=== PATIENT | female | born 1955 | race Caucasian/White ===

== ENCOUNTER 2016-03-26 16:38 | Emergency (ER) | payer OTHER ==
[~2016-03-26] VITALS: Ht 170.2 cm; Wt 80.0 kg
[~2016-03-26 16:38] MED LIST: ACET-749 PO; ALLO100T PO; ASCA500 PO; BISO5TAB3 PO; CITA10TA4 PO; CLR10 PO; COLE625T PO; DIGO0.2518 PO; DILT180C PO; DOCU-94 PO; DOCUSATE 100 MG PO; FLM4 PO; GLIM1TAB2 PO; NITR1CAP33 PO; OXYC-57 PO; OXYC1TAB3 PO; PANC24002 PO; PANT1TAB48 PO; POTA-74 PO; POTA1080 PO; TRAM-10 PO; TRAZ50TA35 PO; TRC145 PO; WARF-246 PO
[2016-03-26 16:51] VITALS: TEMP 36.7; Ht 170.2 cm; Wt 80.0 kg
[2016-03-26] MEDS ORDERED: HYDROmorphone INJ 1 MG/ML SYR IV STA (17:02)
[2016-03-26] MEDS ORDERED: SODIUM CHLORIDE 0.9% 500ML 500 ML IV STA (17:02)
[2016-03-26] MEDS ORDERED: SUCR1TAB29 PO (17:04)
[2016-03-26] MEDS ORDERED: AMOX1TAB42 PO (17:04)
[2016-03-26] MEDS ORDERED: NVLG SC (17:15)
[2016-03-26] MEDS ORDERED: ONDA4TAB46 PO (17:15)
[2016-03-26] MEDS ORDERED: CHOL2000 PO (17:15)
[2016-03-26] MEDS ORDERED: WARF2.5T8 PO (17:15)
[2016-03-26] MEDS ORDERED: COLE1TAB5 PO (17:15)
[2016-03-26] MEDS ORDERED: WARF3TAB6 PO (17:15)
[2016-03-26] MEDS ORDERED: MAGN400T6 PO (17:15)
[2016-03-26] MEDS ORDERED: INSDGIPEN SC (17:15)
[2016-03-26] MEDS ORDERED: DILT120C41 PO (17:16)
[2016-03-26 17:25] LABS: BASO % 0.5 %; BASO ABS # 0.03 K/uL (0-0.2); COMPLETE YES; HEMATOCRIT 40.5 % (37-47); IG% 0.2 %; LYMPH % 29.4 %; LYMPH ABS # 1.78 K/uL (1.2-3.4); MEAN CORPUSCULAR HEMOGLOBIN 30.8 pg (25-34); MEAN CORPUSCULAR HGB CONC 34.6 g/dl (32-36); MEAN PLATELET VOLUME 10.5 fL (7.4-10.4); MONO % 12.9 %; PLATELET COUNT 212 K/uL (130-400); RED BLOOD COUNT 4.55 M/uL (4.2-5.4); WHITE BLOOD COUNT 6.06 K/uL (4.8-10.8)
[2016-03-26 17:41] LABS: BUN/CREATININE RATIO 16.8 (10-20); CALCIUM 9.4 mg/dl (8.5-10.1); CREATININE 0.63 mg/dl (0.60-1.20); POTASSIUM 3.6 mmol/L (3.5-5.1)
[2016-03-26 17:44] LABS: ALB/GLOB RATIO 0.9 (0.9-2)
[2016-03-26 17:51] LABS: BETA-HYDROXYBUTYRATE 1.15 mg/dL (0.2-2.81)
[2016-03-26 18:27] LABS: URINE APPEARANCE CLOUDY (CLEAR); URINE BILIRUBIN NEG (NEG); URINE COLOR YELLOW; URINE EPITHELIAL CELL AUTO >30 /lpf (0-5); URINE NITRITE NEG (NEG); URINE PH 6.5 (4.5-7.5); UROBILINOGEN NEG (NEG); ZZUR CULT IF INDIC CLEAN CATCH NO
[2016-03-26 18:28] LABS: MANUAL MICROSCOPIC REQUIRED? NO; REVIEW REQ? NO
[2016-03-26] MEDS ORDERED: NovoLIN-R INSULIN PER UNIT CHARGE SC STA (18:29)
[2016-03-26] MEDS ORDERED: HYDR-5688 PO (18:48)
--- NOTE | 2016-03-26 18:52 | EMERGENCY ROOM VISIT NOTE ---
History First contact with patient: 16:54 Chief Complaint: ABDOMINAL PAIN Stated Complaint: ABD PAIN Nursing Triage Summary: Patient reports left sided abdominal pain with associated constipation, nausea and vomiting. history of pancreatic CA. Patient evaluated at [facility] yesterday for same c/c. Placed on augmentin and carafate. No relief. Patietn denies any fever/chills. History of Present Illness The patient is a 60 year old female who presents to the Emergency Room with complaints of abdominal pain. The patient reports that she has had left-sided abdominal pain with radiation into the back and into the right side of the abdomen for the past 3 weeks. She was seen at [facility] yesterday and had a CT scan which showed diverticulitis. The patient was placed on Augmentin and discharged home. She reports that she is having trouble controlling the pain. She is not taking anything at home for her pain. She does have a history of diverticulitis. The patient also has a history of pancreatic cancer and is status post Whipple procedure in 2013. The patient states that she has been alternating between constipation and diarrhea. She has occasional nausea without vomiting. She has been able to keep down soup and sohail oscar. The patient also reports a history of atrial fibrillation and type 2 diabetes mellitus. She denies any fevers/chills, hematochezia, chest pain or shortness of breath. Review of Systems A complete 10-point Review of Systems was discussed with the patient, with pertinent positives and negatives listed in the History of Present Illness. All remaining Review of Systems questions can be considered negative unless otherwise specified. Past Medical/Surgical History Medical Problems: (1) A-fib (2) Diverticulitis (3) Heart disease (4) HTN (hypertension) (5) Kidney stones (6) Pancreatic cancer Surgical Problems: (1) Hx of appendectomy (2) Hx of cholecystectomy Family History FH: cancer FH: heart disease Hypertension Kidney disease Kidney stones Seizures Social History Smoking Status: Current Every Day Smoker Alcohol Use: none Drug Use: none Marital Status: Housing Status: lives with family Occupation Status: unemployed Current/Historical Medications Scheduled Allopurinol (Zyloprim), 200 MG PO DAILY Amoxicillin & Pot Clavulanate (Amoxicillin/Clavulanate P), 1 TAB PO BID Ascorbic Acid (Vitamin C *), 500 MG PO BID Bisoprolol Fumarate (Zebeta), 2.5 MG PO HS Cholecalciferol (Vitamin D3), 2,000 UNITS PO BID Citalopram Hydrobromide (Citalopram Hydrobromide), 10 MG PO HS Colestipol Hcl (Colestipol Hcl), 1 GM PO QID Digoxin (Lanoxin), 0.25 MG PO DAILY Diltiazem Hcl (Dilt-Xr), 120 MG PO DAILY Fenofibrate (Fenofibrate), 145 MG PO DAILY Glimepiride (Glimepiride), 2 MG PO HS Insulin Aspart (Novolog), 4 UNITS SC WM Insulin Glargine (Lantus Solostar), 36 UNITS SC HS Loratadine (Claritin), 10 MG PO DAILY Magnesium Oxide (Mag-Ox), 400 MG PO DAILY Pancrelipase (Lipase-Protease- (Creon), 2 CAP PO TIDM Pantoprazole (Protonix), 40 MG PO DAILY Potassium Chloride (Potassium Chloride Er), 10 MEQ PO DAILY Sucralfate (Carafate), 1 GM PO QID Tamsulosin HCl (Tamsulosin HCl), 0.4 MG PO HS Trazodone Hcl (Trazodone), 100 MG PO HS Warfarin Sod (Jantoven), 2.5 MG PO UD Warfarin Sod (Jantoven), 3 MG PO UD Scheduled PRN Docusate Sodium (Colace), 1 CAP PO BID PRN for Constipation Hydrocodone/Acetaminophen 5MG/325MG ([place] 5MG/325MG), 1-2 TABLET PO Q4H PRN for Pain Ondansetron Hcl (Zofran), 4 MG PO Q8 PRN for Nausea Allergies Coded Allergies: Azithromycin (Verified Allergy, Severe, RASH, 06/09/15) Iodinated Diagnostic Agents (Verified Allergy, Severe, HIVES, AIRWAY SWELLS FROM CT DYE, 06/10/15) Iodine (Verified Allergy, Mild, 04/24/09) Morphine (Verified Allergy, Mild, 06/03/11) Alcohol (Verified Allergy, Unknown, hives, 10/24/15) no alcohol wipes Atorvastatin (Verified Allergy, Unknown, UNKNOWN, 06/09/15) Fentanyl (Verified Allergy, Unknown, rash, 10/24/15) Isopropyl Alcohol (Verified Allergy, Unknown, UNKNOWN, 06/10/15) Latex (Verified Allergy, Unknown, UNKNOWN, 06/10/15) Lemon Oil (Verified Allergy, Unknown, UNKNOWN, 06/09/15) Lorazepam (Verified Allergy, Unknown, RASH, 06/09/15) Lovastatin (Verified Allergy, Unknown, MYALGIAS, 06/09/15) Ondansetron (Verified Allergy, Unknown, rash, 10/24/15) Rosuvastatin (Verified Allergy, Unknown, UNKNOWN, 06/09/15) Shellfish (Verified Allergy, Unknown, UNKNOWN, 06/09/15) Sulfamethoxazole w/Trimethoprim (Verified Allergy, Unknown, UNKNOWN, ) Oxycodone (Verified Adverse Reaction, Severe, SHEARER/NAUSEA, 06/10/15) Ciprofloxacin (Verified Adverse Reaction, Unknown, INTERFERES WITH COUMADIN, 06/10/15) Ezetimibe (Verified Adverse Reaction, Unknown, RAPID HEART BEAT, 06/10/15) Gemfibrozil (Verified Adverse Reaction, Unknown, MYALGIAS, 06/10/15) Tramadol (Verified Adverse Reaction, Unknown, CHEST TIGHTNESS, 06/10/15) Physical Exam Vital Signs Date Time Temp Pulse Resp B/P Pulse Ox O2 Delivery O2 Flow Rate FiO2 03/26/16 19:03 64 16 108/70 98 03/26/16 18:14 94 16 101/67 96 03/26/16 16:58 108 03/26/16 16:51 36.7 94 16 167/80 95 03/26/16 16:51 Room Air Pain Rating (0-10): 0 Physical Exam VITALS: Vitals are noted on the nurse's note and reviewed by myself. Vital signs stable. GENERAL: This is a 60-year-old female, in no acute distress, nondiaphoretic, well-developed well-nourished. SKIN: Capillary reflex less than 2 seconds. HEART: Regular rate and rhythm without murmurs gallops or rubs. LUNGS: Clear to auscultation bilaterally without wheezes, rales or rhonchi. No retractions or accessory muscle use. ABDOMEN: Positive bowel sounds x 4. Moderate tenderness to palpation of the left lower quadrant and right lower quadrant. NEURO: Patient was alert and oriented to person place and time. Medical Decision & Procedures Laboratory Results 03/26/16 17:15 Red Blood Count 4.55, Mean Corpuscular Volume 89.0, Mean Corpuscular Hemoglobin 30.8, Mean Corpuscular Hemoglobin Concent 34.6, Mean Platelet Volume 10.5, Neutrophils (%) (Auto) 56.0, Lymphocytes (%) (Auto) 29.4, Monocytes (%) (Auto) 12.9, Eosinophils (%) (Auto) 1.0, Basophils (%) (Auto) 0.5, Neutrophils # (Auto ) 3.40, Lymphocytes # (Auto) 1.78, Monocytes # (Auto) 0.78, Eosinophils # (Auto ) 0.06, Basophils # (Auto) 0.03 03/26/16 17:15 Test 03/26/16 00:00 03/26/16 17:15 Urine Color YELLOW Urine Appearance CLOUDY (CLEAR) Urine pH 6.5 (4.5-7.5) Urine Specific [place] 1.030 (1.000-1.030) Urine Protein NEG (NEG) Urine Glucose (UA) 3+ (NEG) Urine Ketones NEG (NEG) Urine Occult Blood NEG (NEG) Urine Nitrite NEG (NEG) Urine Bilirubin NEG (NEG) Urine Urobilinogen NEG (NEG) Urine Leukocyte Esterase NEG (NEG) Urine WBC (Auto) 1-5 /hpf (0-5) Urine RBC (Auto) 0-4 /hpf (0-4) Urine Hyaline Casts (Auto) 1-5 /lpf (0-5) Urine Epithelial Cells (Auto) >30 /lpf (0-5) Urine Bacteria (Auto) NEG (NEG) White Blood Count 6.06 K/uL (4.8-10.8) Red Blood Count 4.55 M/uL (4.2-5.4) Hemoglobin 14.0 g/dL (12.0-16.0) Hematocrit 40.5 % (37-47) Mean Corpuscular Volume 89.0 fL (80-100) Mean Corpuscular Hemoglobin 30.8 pg (25-34) Mean Corpuscular Hemoglobin Concent 34.6 g/dl (32-36) Platelet Count 212 K/uL (130-400) Mean Platelet Volume 10.5 fL (7.4-10.4) Neutrophils (%) (Auto) 56.0 % Lymphocytes (%) (Auto) 29.4 % Monocytes (%) (Auto) 12.9 % Eosinophils (%) (Auto) 1.0 % Basophils (%) (Auto) 0.5 % Neutrophils # (Auto) 3.40 K/uL (1.4-6.5) Lymphocytes # (Auto) 1.78 K/uL (1.2-3.4) Monocytes # (Auto) 0.78 K/uL (0.11-0.59) Eosinophils # (Auto) 0.06 K/uL (0-0.5) Basophils # (Auto) 0.03 K/uL (0-0.2) RDW Standard Deviation 41.7 fL (36.4-46.3) RDW Coefficient of Variation 12.9 % (11.5-14.5) Immature Granulocyte % (Auto) 0.2 % Immature Granulocyte # (Auto) 0.01 K/uL (0.00-0.02) Anion Gap 10.0 mmol/L (3-11) Est Creatinine Clear Calc Drug Dose 102.1 ml/min Estimated GFR () 112.2 Estimated GFR (Non- 96.8 BUN/Creatinine Ratio 16.8 (10-20) Calcium Level 9.4 mg/dl (8.5-10.1) Total Bilirubin 0.2 mg/dl (0.2-1) Aspartate Amino Transf (AST/SGOT) 32 U/L (15-37) Alanine Aminotransferase (ALT/SGPT) 51 U/L (12-78) Alkaline Phosphatase 86 U/L (45-117) Total Protein 6.6 gm/dl (6.4-8.2) Albumin 3.2 gm/dl (3.4-5.0) Globulin 3.4 gm/dl (2.5-4.0) Albumin/Globulin Ratio 0.9 (0.9-2) Lipase 196 U/L (73-393) Beta-Hydroxybutyric Acid 1.15 mg/dL (0.2-2.81) Medications Administered Medications (Trade) Dose Ordered Sig/August Route Start Time Stop Time Status Last Admin Dose Admin Hydromorphone HCl 1 mg 1 mg NOW STAT IV 03/26/16 17:02 03/26/16 17:06 DC 03/26/16 17:25 1 MG Sodium Chloride (Nss 500ml) 500 ml @ 999 mls/hr Q31M STAT IV 03/26/16 17:02 03/26/16 17:34 DC 03/26/16 17:24 999 MLS/HR Insulin Human Regular (novoLIN-R U-100 PER UNIT) 10 units NOW STAT SC 03/26/16 18:29 03/26/16 18:30 DC 03/26/16 18:59 10 UNITS Medical Decision Differential diagnosis includes diverticulitis, pancreatitis, gastroenteritis, colitis, among others. The patient was evaluated as above. Labs were drawn and IV access was obtained. The patient was medicated with 1 mg Dilaudid IV and a 500 mL normal saline solution bolus. The patient was reassessed multiple times during their stay in the emergency department and remained in stable condition. The patient is a 60-year-old female who presents today complaining of abdominal pain. Records were obtained from [facility]. The patient was not seen in the emergency department, but did have outpatient testing done. Labs at that time were unremarkable. A CT scan was done and did not show evidence of diverticulitis, but was suspicious for a possible pancreatitis. Review of the patient's records here show that she was seen last month and had a CT scan which showed similar findings. I do question whether there could be a component of chronic pancreatitis. Regardless, the patient was encouraged to continue the Augmentin prescribed by her primary care provider despite the CT findings. Labs today revealed no leukocytosis, anemia or concerning electrolyte abnormalities. Glucose was moderately elevated at 366. The patient was given 10 mg regular insulin subcutaneously. Urinalysis was not suggestive of infection. The patient was given 1 mg Dilaudid IV and on reassessment had complete relief of her pain. She requested discharge home. She has a follow-up appointment scheduled with her primary care provider in 2 days. She was encouraged to return if she has any new/concerning symptoms. Based on the patient's presentation, lab results, and imaging studies, I feel the patient is stable for outpatient treatment. The patient's case was reviewed with Dr. Walters, ED attending physician, who agreed with my assessment and treatment plan. Discharge instructions were reviewed with the patient. The patient verbalized understanding of my assessment and treatment plan and was discharged home in good condition. Impression Primary Impression: Left sided abdominal pain Departure Information Dispostion Home / Self-Care Condition GOOD Prescriptions Hydrocodone/Acetaminophen 5MG/325MG ([place] 5MG/325MG) Tab 1-2 TABLET PO Q4H Y for Pain, #20 TAB For Initial Treatment Prov: Jennifer Stokes .IDALMIS 03/26/16 Referrals Michael Sepulveda M.D. (PCP) Patient Instructions A Signature Page Additional Instructions You have been treated in the Emergency Department your Abdominal Pain. Laboratory results and imaging studies have ruled out any emergent causes for your abdominal pain which would warrant admission or surgery. You have been prescribed [place] to be used for pain control. This is a narcotic medication. You cannot drive or consume alcohol while on this medicine. This medicine should only be used for pain that cannot be controlled with over-the- counter pain medicines. Drink plenty of water and stay well hydrated. Follow-up with your primary care provider as scheduled. Monitor your blood sugars closely. Return to the emergency department with worsening abdominal pain, vomiting, fevers or any other new/concerning symptoms.
[2016-03-26 19:03] VITALS: BP 108/70; PULSE 64; O2SAT 98
[2016-11-23] MEDS ORDERED: FNTTP25 TD (09:14)
[2016-11-23] MEDS ORDERED: COLE1TAB PO (09:14)
[2016-11-23] MEDS ORDERED: WARF3TAB PO (09:14)
[2016-11-23] MEDS ORDERED: METO50TA7 PO (09:14)
[2016-11-23] MEDS ORDERED: CHOL20007 PO (09:14)
[2016-11-23] MEDS ORDERED: COLE625T PO (09:14)
[2016-11-23] MEDS ORDERED: OMEG10007 PO (09:14)
[2016-11-23] MEDS ORDERED: NVLGI/PEN SQ (09:14)
[2016-11-23] MEDS ORDERED: PANC1200 PO (09:14)
[2016-11-23] MEDS ORDERED: WARF1TAB PO (09:14)
[2016-11-23] MEDS ORDERED: DIGO0.1219 PO (09:14)
[2016-11-23] MEDS ORDERED: OXYC1CAP5 PO (09:14)
[2016-11-23] MEDS ORDERED: POLY335019 PO (09:14)
[2016-11-23] MEDS ORDERED: HYDR-5688 PO (09:14)
[2016-11-23] MEDS ORDERED: CYAN10005 PO (09:14)
[2016-11-23] MEDS ORDERED: NRN/100 PO (09:14)
[2016-11-23] MEDS ORDERED: NALO1TAB PO (09:14)
[2016-11-23] MEDS ORDERED: NICO7DIS7 TD (09:14)
[2016-11-23] MEDS ORDERED: DILT120C68 PO (09:14)
[2016-12-21] MEDS ORDERED: ASCA500 PO (15:12)
== END 2016-03-26 19:20 | disposition home or self-care (01) ==
LOC: EDBD 16:38 → C.EDC 16:44
DX: R10.9 Unspecified abdominal pain (principal); R19.7 Diarrhea, unspecified; I48.91 Unspecified atrial fibrillation; E11.9 Type 2 diabetes mellitus without complications; I10 Essential (primary) hypertension; F17.200 Nicotine dependence, unspecified, uncomplicated; Z85.07 Personal history of malignant neoplasm of pancreas; Z82.49 Family history of ischemic heart disease and other diseases of the circulatory system; Z79.01 Long term (current) use of anticoagulants; Z79.4 Long term (current) use of insulin; Z79.899 Other long term (current) drug therapy

== ENCOUNTER → 2016-04-12 | Outpatient (CLI) | payer OTHER ==
[~2016-04-12] MED LIST changes: -ACET-749 PO; +AMOX1TAB42 PO; +CHOL2000 PO; +CHOL20007 PO; +CMD2 PO; +COLE1TAB PO; +COLE1TAB5 PO; +CYAN10005 PO; +DIGO0.1219 PO; +DILT120C41 PO; +DILT120C68 PO; -DILT180C PO; -DOCUSATE 100 MG PO; +FNTTP25 TD; +HYDR-5688 PO; +INSDGIPEN SC; +MAGN400T6 PO; +METO50TA7 PO; +NALO1TAB PO; +NICO7DIS7 TD; -NITR1CAP33 PO; +NRN/100 PO; +NVLG SC; +NVLGI/PEN SQ; +OMEG10007 PO; +ONDA4TAB46 PO; -OXYC-57 PO; +OXYC1CAP5 PO; -OXYC1TAB3 PO; +PANC1200 PO; +POLY335019 PO; -POTA1080 PO; +SUCR1TAB29 PO; -TRAM-10 PO; -WARF-246 PO; +WARF1TAB PO; +WARF2.5T8 PO; +WARF3TAB PO; +WARF3TAB6 PO
--- NOTE | 2016-04-12 10:11 | DIAGNOSTIC IMAGING REPORT ---
KUB CLINICAL HISTORY: Ureteral calculus COMPARISON STUDY: 08/09/2015 FINDINGS: There are postsurgical changes present within the abdomen with multiple suture lines. There is bilateral nephrolithiasis. There are mildly dilated small bowel loops measuring up to 36 mm in diameter. There is a 2 mm density projected over the right L3 transverse process. A tiny ureteral calculus cannot be excluded IMPRESSION: 1. Extensive postsurgical changes 2. Mild small bowel dilatation 3. 2 mm density projected over the right L3 transverse process. A tiny ureteral calculus cannot be excluded Electronically signed by: Luis Davis M.D. 04/12/2016 10:09 AM Dictated Date/Time: 04/12/2016 10:07 AM
[2016-04-12 10:32] LABS: BLOOD UREA NITROGEN 9 mg/dl (7-18); BUN/CREATININE RATIO 16.2 (10-20); CALCIUM 10.4 mg/dl (8.5-10.1); CARBON DIOXIDE 30 mmol/L (21-32); CHLORIDE 105 mmol/L (98-107); CREATININE 0.53 mg/dl (0.60-1.20); GLUCOSE 106 mg/dl (70-99); POTASSIUM 3.6 mmol/L (3.5-5.1); SODIUM 143 mmol/L (136-145); URIC ACID 2.5 mg/dl (2.6-7.2)
== END | disposition home or self-care (01) ==
LOC: C.RAD 09:22
PROVIDERS: ATTEND Urology
DX: N20.1 Calculus of ureter (principal); N39.0 Urinary tract infection, site not specified; N20.0 Calculus of kidney

== ENCOUNTER → 2016-04-12 | Outpatient (CLI) | payer OTHER | END | disposition home or self-care (01) | LOC: C.LABSPEC 16:53 | PROVIDERS: ATTEND Nurse Practitioner Family | DX: N20.1 Calculus of ureter (principal); N39.0 Urinary tract infection, site not specified ==

== ENCOUNTER 2016-04-15 16:10 | Emergency (ER) | payer OTHER ==
[~2016-04-15] VITALS: Ht 167.6 cm; Wt 73.8 kg
[~2016-04-15 16:10] MED LIST changes: -CHOL20007 PO; -CMD2 PO; -COLE1TAB PO; -COLE625T PO; -CYAN10005 PO; -DIGO0.1219 PO; -DILT120C68 PO; -FNTTP25 TD; -METO50TA7 PO; -NALO1TAB PO; -NICO7DIS7 TD; -NRN/100 PO; -NVLGI/PEN SQ; -OMEG10007 PO; -OXYC1CAP5 PO; -PANC1200 PO; -POLY335019 PO; -WARF1TAB PO; -WARF3TAB PO
[2016-04-15 16:20] VITALS: TEMP 36.7; Ht 167.6 cm; Wt 73.8 kg
[2016-04-15] MEDS ORDERED: CMD2 PO (16:46)
[2016-04-15] MEDS ORDERED: NVLGI/PEN SQ (16:46)
--- NOTE | 2016-04-15 17:26 | EMERGENCY ROOM VISIT NOTE ---
History Report prepared by Chuyita: Rufina Loera Under the Supervision of: Dr. Moises Nolasco M.D. First contact with patient: 17:10 Chief Complaint: ABDOMINAL PAIN Stated Complaint: AB PAIN Nursing Triage Summary: Diffuse upper abdominal pain. History of diverticulitis, and pancreatitis. Scheduled for pancreatic surgery next week at [facility]. Negative nausea/vomiting/diarrhea, fever, chills. Patient took lortab 5 mg X 2 this date with little relief. Given Fentanyl 100 mcg Prehospital with some relief. History of Present Illness The patient is a 60 year old female who presents to the Emergency Room with complaints of worsening left-sided abdominal pain that started earlier today. The patient came to the ED via ambulance and was given 100 mcg fentanyl en route. The fentanyl relieved her pain. The patient took two doses of 5 mg of Lortab earlier today, but it offered her minimal relief. She is also experiencing shortness of breath secondary to the pain. She denies any other complaints other than the pain and associated shortness of breath. The patient states that she has a history of diverticulitis, pancreatitis, and four kidney stones. The patient thinks that she only has one kidney stone left. She states that the pain feels very similar to the pain that she experiences with pancreatitis. The patient is scheduled to have pancreatic surgery at [facility] next week, which she states is for "inflammation of tail of the pancreas." She adds that she has been on a light diet since March 07 in an effort to avoid irritating her pancreas. The patient has a history of atrial fibrillation and is on Coumadin. 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 Source of History: patient Onset: earlier today Position: abdomen (left-sided) Timing: worsening Associated Symptoms: + SOB (with the pain) Review of Systems All systems have been listed, reviewed, and are negative other than those previously mentioned. Please see Additional Medical History Sheet. Past Medical & Surgical Medical Problems: (1) A-fib (2) Diverticulitis (3) Heart disease (4) HTN (hypertension) (5) Kidney stones (6) Pancreatic cancer Surgical Problems: (1) Hx of appendectomy (2) Hx of cholecystectomy Family History FH: cancer FH: heart disease Hypertension Kidney disease Kidney stones Seizures Social History Smoking Status: Current Every Day Smoker Alcohol Use: none Drug Use: none Marital Status: Housing Status: lives with family Occupation Status: unemployed Current/Historical Medications Scheduled Allopurinol (Zyloprim), 100 MG PO DAILY Ascorbic Acid (Vitamin C *), 500 MG PO DAILY Bisoprolol Fumarate (Zebeta), 2.5 MG PO HS Citalopram Hydrobromide (Citalopram Hydrobromide), 10 MG PO HS Digoxin (Lanoxin), 0.25 MG PO DAILY Fenofibrate (Fenofibrate), 145 MG PO DAILY Glimepiride (Glimepiride), 2 MG PO HS Insulin Aspart (Novolog Flexpen), 2-4 UNIT SQ TIDM Insulin Glargine (Lantus Solostar), 36 UNITS SC HS Loratadine (Claritin), 10 MG PO DAILY Magnesium Oxide (Mag-Ox), 400 MG PO DAILY Pancrelipase (Lipase-Protease- (Creon), 2 CAP PO BID Pantoprazole (Protonix), 40 MG PO DAILY Potassium Chloride (Potassium Chloride Er), 10 MEQ PO DAILY Sucralfate (Carafate), 1 GM PO QID Tamsulosin HCl (Tamsulosin HCl), 0.4 MG PO HS Trazodone Hcl (Trazodone), 100 MG PO HS Warfarin Sod (Jantoven), 2.5 MG PO UD Warfarin Sod (Coumadin), 2 MG PO Q2D Scheduled PRN Docusate Sodium (Colace), 1 CAP PO BID PRN for Constipation Ondansetron Hcl (Zofran), 4 MG PO Q8 PRN for Nausea Allergies Coded Allergies: Azithromycin (Verified Allergy, Severe, RASH, 06/09/15) Iodinated Diagnostic Agents (Verified Allergy, Severe, HIVES, AIRWAY SWELLS FROM CT DYE, 06/10/15) Iodine (Verified Allergy, Mild, 04/24/09) Morphine (Verified Allergy, Mild, 06/03/11) Alcohol (Verified Allergy, Unknown, hives, 10/24/15) no alcohol wipes Atorvastatin (Verified Allergy, Unknown, UNKNOWN, 06/09/15) Fentanyl (Verified Allergy, Unknown, rash, 10/24/15) Isopropyl Alcohol (Verified Allergy, Unknown, UNKNOWN, 06/10/15) Latex (Verified Allergy, Unknown, UNKNOWN, 06/10/15) Lemon Oil (Verified Allergy, Unknown, UNKNOWN, 06/09/15) Lorazepam (Verified Allergy, Unknown, RASH, 06/09/15) Lovastatin (Verified Allergy, Unknown, MYALGIAS, 06/09/15) Ondansetron (Verified Allergy, Unknown, rash, 10/24/15) Rosuvastatin (Verified Allergy, Unknown, UNKNOWN, 06/09/15) Shellfish (Verified Allergy, Unknown, UNKNOWN, 06/09/15) Sulfamethoxazole w/Trimethoprim (Verified Allergy, Unknown, UNKNOWN, ) Oxycodone (Verified Adverse Reaction, Severe, SHEARER/NAUSEA, 06/10/15) Ciprofloxacin (Verified Adverse Reaction, Unknown, INTERFERES WITH COUMADIN, 06/10/15) Ezetimibe (Verified Adverse Reaction, Unknown, RAPID HEART BEAT, 06/10/15) Gemfibrozil (Verified Adverse Reaction, Unknown, MYALGIAS, 06/10/15) Tramadol (Verified Adverse Reaction, Unknown, CHEST TIGHTNESS, 06/10/15) Physical Exam Vital Signs Date Time Temp Pulse Resp B/P Pulse Ox O2 Delivery O2 Flow Rate FiO2 04/15/16 18:55 63 18 130/90 95 Room Air 04/15/16 17:30 64 16 141/51 94 04/15/16 16:24 82 04/15/16 16:20 36.7 77 14 141/51 96 Physical Exam GENERAL: Patient awake, alert, oriented x 3. Patient follows commands. Patient is in minimal distress. Patient does not appear toxic. Patient is adequately hydrated and well-nourished. SKIN: No erythema, pallor, cyanosis or rash HEENT: Normal head, pupils equal, reactive to light and accommodation. Neck: Without adenopathy, no neck vein distention. LUNGS: Clear to auscultation. No wheezes, no rales, no rhonchi. HEART: Irregularly irregular rhythm without murmur. ABDOMEN: Left-sided abdominal pain with some tenderness over the epigastrium. Old well-healed scars noted. No masses, no rebound, no hepatomegaly or splenomegaly. EXTREMITIES: No signs of trauma. No pedal or pretibial edema. No calf or thigh tenderness. NEUROLOGIC: Cranial nerves II-XII within normal limits. No gross motor sensory function deficits. Medical Decision & Procedures ER Provider Diagnostic Interpretation: X ray results are stated below per my interpretation and the radiologist's interpretation. KUB IMPRESSION: 1. No change in the mildly dilated small bowel within the left side of the abdomen. 2. Extensive postoperative changes. 3. Bilateral nephrolithiasis. No ureteral calculi identified. Electronically signed by: Chilango Hartmann M.D. 04/15/2016 6:28 PM Dictated Date/Time: 04/15/2016 6:25 PM Laboratory Results 04/15/16 17:30 Red Blood Count 4.43, Mean Corpuscular Volume 89.6, Mean Corpuscular Hemoglobin 30.0, Mean Corpuscular Hemoglobin Concent 33.5, Mean Platelet Volume 10.2, Neutrophils (%) (Auto) 50.8, Lymphocytes (%) (Auto) 37.5, Monocytes (%) (Auto) 9.8, Eosinophils (%) (Auto) 1.4, Basophils (%) (Auto) 0.3, Neutrophils # (Auto) 3.16, Lymphocytes # (Auto) 2.33, Monocytes # (Auto) 0.61, Eosinophils # (Auto) 0.09, Basophils # (Auto) 0.02 04/15/16 17:30 Test 04/15/16 00:00 04/15/16 17:30 Urine Color YELLOW Urine Appearance CLOUDY (CLEAR) Urine pH 6.5 (4.5-7.5) Urine Specific [place] 1.014 (1.000-1.030) Urine Protein NEG (NEG) Urine Glucose (UA) NEG (NEG) Urine Ketones NEG (NEG) Urine Occult Blood TRACE (NEG) Urine Nitrite NEG (NEG) Urine Bilirubin NEG (NEG) Urine Urobilinogen NEG (NEG) Urine Leukocyte Esterase NEG (NEG) Urine WBC (Auto) 1-5 /hpf (0-5) Urine RBC (Auto) 10-30 /hpf (0-4) Urine Hyaline Casts (Auto) 1-5 /lpf (0-5) Urine Epithelial Cells (Auto) >30 /lpf (0-5) Urine Bacteria (Auto) 4+ (NEG) White Blood Count 6.22 K/uL (4.8-10.8) Red Blood Count 4.43 M/uL (4.2-5.4) Hemoglobin 13.3 g/dL (12.0-16.0) Hematocrit 39.7 % (37-47) Mean Corpuscular Volume 89.6 fL (80-100) Mean Corpuscular Hemoglobin 30.0 pg (25-34) Mean Corpuscular Hemoglobin Concent 33.5 g/dl (32-36) Platelet Count 208 K/uL (130-400) Mean Platelet Volume 10.2 fL (7.4-10.4) Neutrophils (%) (Auto) 50.8 % Lymphocytes (%) (Auto) 37.5 % Monocytes (%) (Auto) 9.8 % Eosinophils (%) (Auto) 1.4 % Basophils (%) (Auto) 0.3 % Neutrophils # (Auto) 3.16 K/uL (1.4-6.5) Lymphocytes # (Auto) 2.33 K/uL (1.2-3.4) Monocytes # (Auto) 0.61 K/uL (0.11-0.59) Eosinophils # (Auto) 0.09 K/uL (0-0.5) Basophils # (Auto) 0.02 K/uL (0-0.2) RDW Standard Deviation 42.3 fL (36.4-46.3) RDW Coefficient of Variation 13.0 % (11.5-14.5) Immature Granulocyte % (Auto) 0.2 % Immature Granulocyte # (Auto) 0.01 K/uL (0.00-0.02) Prothrombin Time 28.7 SECONDS (9.0-12.0) Prothromb Time International Ratio 2.6 (0.9-1.1) Activated Partial Thromboplast Time 38.0 SECONDS (21.0-31.0) Partial Thromboplastin Ratio 1.5 Anion Gap 10.0 mmol/L (3-11) Est Creatinine Clear Calc Drug Dose 106.5 ml/min Estimated GFR () 116.0 Estimated GFR (Non- 100.1 BUN/Creatinine Ratio 19.3 (10-20) Calcium Level 9.7 mg/dl (8.5-10.1) Total Bilirubin 0.2 mg/dl (0.2-1) Aspartate Amino Transf (AST/SGOT) 39 U/L (15-37) Alanine Aminotransferase (ALT/SGPT) 28 U/L (12-78) Alkaline Phosphatase 87 U/L (45-117) Total Protein 6.7 gm/dl (6.4-8.2) Albumin 3.3 gm/dl (3.4-5.0) Globulin 3.4 gm/dl (2.5-4.0) Albumin/Globulin Ratio 1.0 (0.9-2) Lipase 151 U/L (73-393) Laboratory results as stated above per my review. ECG Indication: abdominal pain Rate (beats per minute): 68 Rhythm: atrial fibrillation Findings: nonspecific-ST abn, other (no additional ectopy) ED Course 171: Past medical records reviewed. The patient was evaluated in room A12. A complete history and physical examination was performed. 190: Upon reevaluation, the patient appeared to have improvement of her symptoms. I discussed today's findings with her. She verbalized agreement of the treatment plan. She was discharged home. Medical Decision Nurses notes reviewed. Medical history sheet reviewed. Differential diagnosis includes but is not limited to: pancreatitis, kidney stone, diverticulitis. I gave command to the medics prior to the patient's arrival. The patient was given 100 g of fentanyl IV. On arrival the patient was pain-free. The patient states that her pain appears to be similar to what she has had in the past with pancreatitis. She also has a prior history of kidney stones. A full workup was obtained. The patient does have some hematuria and bacteria in the urine but no significant white cells. Lipase is not elevated. White count is not elevated. The patient remained pain-free throughout the ED stay. She may have passed a kidney stone. She has no evidence of pancreatitis. The patient has had multiple CTs in the past and I do not believe the benefit of the CT outweighs the radiation risk. The patient will strain her urine. Impression Primary Impression: Left flank pain Scribe Attestation The scribe's documentation has been prepared under my direction and personally reviewed by me in its entirety. I confirm that the note above accurately reflects all work, treatment, procedures, and medical decision making performed by me. Departure Information Dispostion Home / Self-Care Referrals Michael Sepulveda M.D. (PCP) Forms HOME CARE DOCUMENTATION FORM, IMPORTANT VISIT INFORMATION Patient Instructions My [facility] [place] I-front[facility]k Additional Instructions Drink 3-4 quarts of liquid over the next 24 hours. Strain your urine. Pain medication as needed. Return here if pain is not controlled at home.
[2016-04-15 17:52] LABS: BASO % 0.3 %; BASO ABS # 0.02 K/uL (0-0.2); COMPLETE YES; EOS % 1.4 %; HEMATOCRIT 39.7 % (37-47); IG% 0.2 %; LYMPH % 37.5 %; LYMPH ABS # 2.33 K/uL (1.2-3.4); MEAN CELL VOLUME 89.6 fL (80-100); MEAN CORPUSCULAR HGB CONC 33.5 g/dl (32-36); MEAN PLATELET VOLUME 10.2 fL (7.4-10.4); MONO % 9.8 %; NEUT % 50.8 %; PLATELET COUNT 208 K/uL (130-400); RED BLOOD COUNT 4.43 M/uL (4.2-5.4); WHITE BLOOD COUNT 6.22 K/uL (4.8-10.8)
[2016-04-15 18:01] LABS: URINE APPEARANCE CLOUDY (CLEAR); URINE BILIRUBIN NEG (NEG); URINE EPITHELIAL CELL AUTO >30 /lpf (0-5); URINE NITRITE NEG (NEG); URINE PH 6.5 (4.5-7.5); URINE SPECIFIC GRAVITY 1.014 (1.000-1.030); UROBILINOGEN NEG (NEG); ZZUR CULT IF INDIC CLEAN CATCH YES
[2016-04-15 18:06] LABS: MANUAL MICROSCOPIC REQUIRED? NO; REVIEW REQ? NO
[2016-04-15 18:07] LABS: URINE COLOR YELLOW
[2016-04-15 18:11] LABS: BUN/CREATININE RATIO 19.3 (10-20); CALCIUM 9.7 mg/dl (8.5-10.1); CREATININE 0.57 mg/dl (0.60-1.20); POTASSIUM 3.8 mmol/L (3.5-5.1)
[2016-04-15 18:17] LABS: INR 2.6 (0.9-1.1); PARTIAL THROMBOPLASTIN RATIO 1.5; PROTHROMBIN TIME (PATIENT) 28.7 SECONDS (9.0-12.0)
--- NOTE | 2016-04-15 18:29 | DIAGNOSTIC IMAGING REPORT ---
KUB HISTORY: Left-sided abdominal pain. COMPARISON: KUB 04/12/2016. FINDINGS: Mild small bowel dilatation within the left side the abdomen remains unchanged. The lung bases are clear. Surgical clips within the midabdomen. Moderate stool seen throughout the colon. Suture material seen within the left side the abdomen and the pelvis. Bilateral nephrolithiasis. No ureteral calculi identified. Stable punctate calcification adjacent to the right L4 transverse process. This is unlikely to represent a ureteral stone given the long-term stability. No pneumoperitoneum or pneumatosis. IMPRESSION: 1. No change in the mildly dilated small bowel within the left side of the abdomen. 2. Extensive postoperative changes. 3. Bilateral nephrolithiasis. No ureteral calculi identified. Electronically signed by: Chilango Hartmann M.D. 04/15/2016 6:28 PM Dictated Date/Time: 04/15/2016 6:25 PM
[2016-04-15 18:55] VITALS: BP 130/90; PULSE 63; O2SAT 95
[2016-11-23] MEDS ORDERED: WARF1TAB PO (09:14)
[2016-11-23] MEDS ORDERED: COLE625T PO (09:14)
[2016-11-23] MEDS ORDERED: METO50TA7 PO (09:14)
[2016-11-23] MEDS ORDERED: WARF3TAB PO (09:14)
[2016-11-23] MEDS ORDERED: OMEG10007 PO (09:14)
[2016-11-23] MEDS ORDERED: CYAN10005 PO (09:14)
[2016-11-23] MEDS ORDERED: CHOL20007 PO (09:14)
[2016-11-23] MEDS ORDERED: NICO7DIS7 TD (09:14)
[2016-11-23] MEDS ORDERED: POLY335019 PO (09:14)
[2016-11-23] MEDS ORDERED: HYDR-5688 PO (09:14)
[2016-11-23] MEDS ORDERED: NRN/100 PO (09:14)
[2016-11-23] MEDS ORDERED: FNTTP25 TD (09:14)
[2016-11-23] MEDS ORDERED: NVLGI/PEN SQ (09:14)
[2016-11-23] MEDS ORDERED: OXYC1CAP5 PO (09:14)
[2016-11-23] MEDS ORDERED: PANC1200 PO (09:14)
[2016-11-23] MEDS ORDERED: COLE1TAB PO (09:14)
[2016-11-23] MEDS ORDERED: NALO1TAB PO (09:14)
[2016-11-23] MEDS ORDERED: DIGO0.1219 PO (09:14)
[2016-11-23] MEDS ORDERED: DILT120C68 PO (09:14)
== END 2016-04-15 19:28 | disposition home or self-care (01) ==
LOC: EDBD 16:10 → C.EDA 16:12
DX: R10.9 Unspecified abdominal pain (principal); F17.200 Nicotine dependence, unspecified, uncomplicated; I48.91 Unspecified atrial fibrillation; I10 Essential (primary) hypertension; I51.9 Heart disease, unspecified; Z85.07 Personal history of malignant neoplasm of pancreas; Z90.49 Acquired absence of other specified parts of digestive tract; Z79.01 Long term (current) use of anticoagulants

== ENCOUNTER → 2017-02-03 | Outpatient (CLI) | payer OTHER ==
[~2017-02-03] MED LIST changes: +ACET-1256 PO; -ALLO100T PO; -AMOX1TAB42 PO; -BISO5TAB3 PO; -CHOL2000 PO; +CHOL20007 PO; -CITA10TA4 PO; +CITA20TA4 PO; -CLR10 PO; -COLE1TAB5 PO; +CYAN10005 PO; +DIGO0.1219 PO; -DIGO0.2518 PO; -DILT120C41 PO; -FLM4 PO; +FNTTP25 TD; -GLIM1TAB2 PO; +METO50TA7 PO; +NALO1TAB PO; +NICO7DIS7 TD; +NRN/100 PO; -NVLG SC; +NVLGI/PEN SQ; +OMEG10007 PO; +OXYC1CAP5 PO; +PANC1200 PO; -PANC24002 PO; +POLY335019 PO; -POTA-74 PO; -WARF2.5T8 PO; +WARF3TAB PO; -WARF3TAB6 PO
--- NOTE | 2017-02-03 10:46 | DIAGNOSTIC IMAGING REPORT ---
L KNEE 1 OR 2 VIEWS ROUTINE HISTORY: 61 years-old Female LEFT KNEE PAIN acute left knee pain without reported trauma COMPARISON: Knee radiographs 04/13/2011 TECHNIQUE: 2 views of the left knee FINDINGS: The bones appear mildly demineralized. Mild tricompartmental degenerative changes are noted. There is no acute fracture, dislocation or osteochondral defect. Trace joint effusion. No opaque foreign body. IMPRESSION: 1. No acute fracture or dislocation. 2. Trace joint effusion with mild tricompartmental osteoarthritis. The above report was generated using voice recognition software. It may contain grammatical, syntax or spelling errors. Electronically signed by: Michel Garcia M.D. 02/03/2017 10:45 AM Dictated Date/Time: 02/03/2017 10:43 AM
--- NOTE | 2017-02-03 10:54 | DIAGNOSTIC IMAGING REPORT ---
L-SPINE MIN 4 VIEWS ROUTINE CLINICAL HISTORY: 61 years-old Female presenting with LUMBAGO, LT KNEE PAIN. TECHNIQUE: Frontal, bilateral oblique, lateral, and coned in lateral views of the lumbar spine were obtained. COMPARISON: CT from 10/25/2015. FINDINGS: No scoliosis. Mild straightening of normal lumbar lordosis. Mild vertebral body height loss of L5 unchanged. Remaining vertebral bodies demonstrate normal height and alignment. Intervertebral disc space narrowing noted at L3-4 through L5-S1, greatest at L5-S1. Osteophytosis is also greatest at L5-S1. Suggestion of osseous neural foraminal narrowing at L5-S1 and possibly L4-5 to a lesser degree. No evidence of a compression deformity. Nonobstructive bowel gas pattern. Surgical clips project over the mid abdomen. Atherosclerosis. IMPRESSION: 1. Mild degenerative changes most severe at L5-S1, where there is suspected osseous neural foraminal narrowing. Electronically signed by: Osmel Mcmillan M.D. 02/03/2017 10:52 AM Dictated Date/Time: 02/03/2017 10:50 AM
== END | disposition home or self-care (01) ==
LOC: C.RADBC 08:57
PROVIDERS: ATTEND Anesthesiology
DX: M25.562 Pain in left knee (principal); M54.5 Low back pain

== ENCOUNTER 2017-06-04 16:51 | Inpatient (IN) | payer OTHER ==
[~2017-06-04] VITALS: Ht 165.1 cm; Wt 81.8 kg
[~2017-06-04 16:51] MED LIST changes: -DOCU-94 PO; -HYDR-5688 PO; -INSDGIPEN SC; -MAGN400T6 PO; -METO50TA7 PO; +METO50TA8 PO; -ONDA4TAB46 PO; -OXYC1CAP5 PO; +PANT1TAB3 PO; -PANT1TAB48 PO; -SUCR1TAB29 PO; -TRAZ50TA35 PO; -TRC145 PO
[2017-06-04 17:01] VITALS: Ht 165.1 cm; Wt 81.8 kg
[2017-06-04] MEDS ORDERED: SUCR1TAB29 PO (17:04)
[2017-06-04] MEDS ORDERED: MAGN400T6 PO (17:15)
[2017-06-04] MEDS ORDERED: ONDA4TAB46 PO (17:15)
[2017-06-04] MEDS ORDERED: INSDGIPEN SC (17:15)
[2017-06-04] MEDS ORDERED: SODIUM CHLORIDE 0.9% 1000ML 1,000 ML IV STA ×2 (17:20→19:35)
[2017-06-04] MEDS ORDERED: HYDROmorphone INJ 0.5 MG/0.5 ML SYR IV STA ×2 (17:20→19:35)
[2017-06-04] MEDS ORDERED: ONDANSETRON INJ 2 MG/ML 2 ML VIAL IV STA (17:20)
[2017-06-04 17:43] LABS: BASO % 0.4 %; BASO ABS # 0.04 K/uL (0-0.2); EOS % 0.5 %; EOS ABS # 0.05 K/uL (0-0.5); HEMOGLOBIN 15.9 g/dL (12.0-16.0); IG# 0.01 K/uL (0.00-0.02); LYMPH % 25.9 %; LYMPH ABS # 2.68 K/uL (1.2-3.4); MEAN CELL VOLUME 87.5 fL (80-100); MEAN CORPUSCULAR HEMOGLOBIN 30.9 pg (25-34); MEAN CORPUSCULAR HGB CONC 35.3 g/dl (32-36); MEAN PLATELET VOLUME 9.9 fL (7.4-10.4); MONO % 11.5 %; MONO ABS # 1.19 K/uL (0.11-0.59); NEUT % 61.6 %; NEUT ABS # 6.36 K/uL (1.4-6.5); PLATELET COUNT 242 K/uL (130-400); RED CELL DISTRIBUTION WIDTH CV 13.4 % (11.5-14.5); RED CELL DISTRIBUTION WIDTH SD 43.1 fL (36.4-46.3); WHITE BLOOD COUNT 10.33 K/uL (4.8-10.8)
[2017-06-04 17:59] LABS: INR 2.2 (0.9-1.1)
[2017-06-04 18:08] LABS: ALBUMIN 3.8 gm/dl (3.4-5.0); CALCIUM 11.3 mg/dl (8.5-10.1); CREATININE 0.76 mg/dl (0.60-1.20); POTASSIUM 3.6 mmol/L (3.5-5.1)
[2017-06-04] MEDS ORDERED: CEFTRIAXONE SOD INJ 1 GM ADDVIAL IV STA (18:28)
[2017-06-04] MEDS ORDERED: DiphenhydrAMINE HCL 50 MG/ML VIAL IV STA (18:46)
[2017-06-04] MEDS ORDERED: DiphenhydrAMINE HCL 50 MG/ML VIAL ONE (18:47)
--- NOTE | 2017-06-04 18:59 | EMERGENCY ROOM VISIT NOTE ---
ED Visit Note First contact with patient: 17:06 CHIEF COMPLAINT: Abdominal and left flank pain HISTORY OF PRESENTING ILLNESS: This is a 61-year-old female with past medical history significant for chronic pancreatitis status post Whipple procedure, diverticulitis, kidney stones, HTN, DM type 2, who presents the emergency department with acute onset of left flank pain started this afternoon around 3 PM. Patient states she has been having some generalized abdominal pain off and on for the past few days, but this also got worse today with the onset of her flank pain. She states the pain is constant, severe, 10/10. She has taken her prescribed [place] and Zofran at home, with no relief. She has had associated nausea and vomiting with the pain and is unable to tolerate anything by mouth. She reports having some urinary symptoms of urgency and frequency for the past 2 days. She states that this feels similar to previous stones that she has had, but she also says it is similar to her pancreatitis. She denies any fevers or chills. She denies any chest pain, shortness of breath, dizziness or syncope. She did have some loose stools yesterday, but denies any diarrhea and has not had a bowel movement today. She denies any symptoms of fevers or chills, headaches, chest pain, shortness of breath, bloody or black stools, dysuria or hematuria, or rash. REVIEW OF SYSTEMS: A complete 10 point review of systems was reviewed with the patient with pertinent positives and negatives as per history of present illness. All else were negative. PAST MEDICAL HISTORY: Reviewed in chart. SOCIAL HISTORY: Lives at home. Denies tobacco use, alcohol use, recreational drug use. ALLERGIES: Patient has an extensive allergy list, this was reviewed in the chart. PHYSICAL EXAM: CONSTITUTIONAL: Alert, cooperative. No acute distress, but is anxious, obviously uncomfortable and in pain. Mildly dehydrated. HEENT: Normocephalic, atraumatic. Pupils equal, round and reactive to light, EOMI. TMs normal. Pharynx normal. Tacky mucous membranes. NECK: Supple, full active range of motion without discomfort. No cervical adenopathy. RESPIRATORY: Clear to auscultation bilaterally with no wheezing, crackles, rhonchi or stridor. Equal expansion bilaterally. CARDIOVASCULAR: Tachycardic. Irregularly irregular rhythm with no murmurs, rubs or gallops. Normal peripheral perfusion. No edema. GASTROINTESTINAL: Soft, diffuse abdominal tenderness, most significant in the left upper and lower quadrant and left flank, nondistended. Positive guarding on the left. No rebound tenderness. Positive CVA tenderness to palpation on the left. No palpable masses or HSM. Bowel sounds present in all quadrants. MUSCULOSKELETAL: Full range of motion of all joints without discomfort. INTEGUMENTARY: No rash or other significant dermatologic conditions noted. NEUROLOGIC: Alert and oriented X 4 with normal affect. Normal strength and sensation in all 4 extremities. No focal neurologic deficits noted. Normal speech. Normal gait observed. ED COURSE AND MEDICAL DECISION MAKING: CC: Patient presenting with complaint of left flank and abdominal pain, nausea and vomiting DIFFERENTIAL DIAGNOSIS: Includes, but not limited to pancreatitis flare, diverticulitis, cholecystitis, cholelithiasis, ureteral stone, ureteral colic, UTI, pyelonephritis, dehydration, electrolyte imbalance, among others. INTERPRETATION OF LABS: No leukocytosis, no anemia, hypercalcemia (consistent with baseline), no other significant electrolyte abnormalities, normal renal function, normal liver enzymes, elevated lipase. Therapeutic INR. UA appears consistent with a UTI with positive nitrites, blood, and a large amount of bacteria. IMAGING: ABDOMEN AND PELVIS CT WITHOUT CONTRAST CT DOSE: 669.94 mGy.cm HISTORY: Acute bilateral flank pain eval ureteral stone, pancreatitis, diverticulitis TECHNIQUE: Multiaxial CT images of the abdomen and pelvis were performed without contrast. A dose lowering technique was utilized adhering to the principles of ALARA. COMPARISON STUDY: CT abdomen and pelvis 02/18/2016. FINDINGS: Subsegmental groundglass opacities of the inferior segment lingula favor atelectasis. There is no pneumatosis or pneumoperitoneum identified. Imaged inferior cardiac chambers are the upper limits of normal with small pericardial effusion. Coronary arterial disease is noted. Prior cholecystectomy. Fatty infiltration of the liver. Spleen, and right adrenal gland are unremarkable. Calcifications associated with the left adrenal gland suggest prior hemorrhage or infection. Nodular thickening of the left adrenal gland redemonstrated. Study is limited secondary to patient motion. There is interstitial and mild peripancreatic inflammatory stranding adjacent to the distal pancreatic body and pancreatic tail without drainable fluid collection identified. Scattered pancreatic calcifications are also noted suggesting sequela of chronic pancreatitis. No drainable fluid collections are identified. Bilateral nephrolithiasis with 6 mm nonobstructing calculus of the inferior pole left kidney. No ureteral calculi or obstructive uropathy. Large cyst of the medial inferior pole right kidney measures up to 7.1 x 6.6 cm. The bladder is partially collapsed. Prior hysterectomy. No adnexal mass lesions identified. Moderate atherosclerosis of the aorta without aneurysm. No bulky adenopathy identified. There is no bowel obstruction or focal bowel wall thickening identified. Postsurgical changes are noted within the distal stomach, small bowel and rectum. Small fat filled left lower lateral abdominal wall incisional hernias noted, diastases 1.6 cm. Soft tissues are unremarkable. Bones appear intact. Intervertebral disc space narrowing is seen at L4-L5 and L5-S1. IMPRESSION: 1. Mild interstitial and peripancreatic inflammatory stranding with trace free fluid of the distal pancreatic body and pancreatic tail suggests acute pancreatitis without drainable fluid collection. Correlate with lipase level. Additionally, there is evidence of chronic pancreatitis. 2. Bilateral nephrolithiasis without ureteral calculi or obstructive uropathy. 3. Hepatic steatosis. 4. Prior cholecystectomy and hysterectomy. 5. Small pericardial effusion. EKG: Shows atrial fibrillation with a rate of 110 bpm, ventricular rate is increased by 42 bpm, no other significant changes noted when compared to previous EKG of 04/15/2016 by my interpretation. MEDICATION RECONCILIATION: I attest that I have personally reviewed the patient 's current medication list. INITIAL VITAL SIGNS REVIEW: I reviewed the patient's initial vital signs and interpret them as follows: T: Afebrile; BP: Normotensive; HR: Tachycardic; RR : Within normal limits; Pulse Ox: Within normal limits on room air. Blood pressure screening: The patient was found to have normal blood pressure on screening and does not require follow-up for repeat blood pressure check. SUMMARY: Patient was evaluated at bedside, history and physical exam performed. Patient is alert and oriented, in no acute distress but is obviously uncomfortable and very anxious, frequently asking for pain medication. Patient is also complaining of nausea and is dry heaving in the room. Patient is tender in the left abdomen and flank with guarding. Positive CVA tenderness on the left. Orders were placed at bedside for labs, UA and culture, IV fluids for hydration , IV Dilaudid for pain, IV Zofran for nausea, CT abdomen/pelvis without contrast to evaluate for stone, pancreatitis, diverticulitis, among others. Patient discussed with Dr. Sims, who agrees with my assessment and plan. Labs and imaging reviewed as above, elevated lipase and CT imaging with findings consistent for acute pancreatitis. Positive UTI was noted on urinalysis. Review of previous urine cultures shows patient mostly has pansensitive E. coli in the past. IV Rocephin was ordered for this. Nursing staff called stating that the patient developed symptoms of itching and tingling all over a few minutes after starting the IV Rocephin. This medication was stopped, and IV Benadryl was ordered. Patient was treated with 2 L of IV fluids and multiple doses of IV Dilaudid, with improvement in her pain, but continues to complain of severe pain and nausea. Patient reassessed multiple times throughout ED stay, she does appear more comfortable, but has been unable to tolerate PO due to nausea. Dr. Caraballo with the hospitalist service was requested to evaluate the patient for admission. Patient was updated on all results and plan for admission, she verbalized understanding and was agreeable to this plan. Patient was stable at time of admission. Problem List Medical Problems: (1) A-fib Status: Chronic (2) Diverticulitis Status: Resolved (3) Heart disease Status: Chronic (4) HTN (hypertension) Status: Chronic (5) Kidney stones Status: Resolved (6) Pancreatic cancer Status: Resolved Surgical Problems: (1) Hx of appendectomy Status: Resolved (2) Hx of cholecystectomy Status: Resolved Current/Historical Medications Scheduled Allopurinol (Allopurinol), 100 MG PO DAILY Ascorbic Acid (Vitamin C), 2 TAB PO NOON Cholecalciferol (Vitamin D3), 1 TAB PO BID Colestipol Hcl (Colestid), 2 GM PO BID Cyanocobalamin (Vitamin B-12), 1,000 MCG PO QAM Digoxin (Digox), 125 MCG PO QAM Diltiazem Hcl Coated Beads (Cartia Xt), 120 MG PO BID Docusate Sodium (Colace), 1 CAP PO BID Fenofibrate (Fenofibrate), 145 MG PO QAM Fish Oil (Guymon-3), 1 CAP PO QPM Gabapentin (Neurontin), 100 MG PO TID Insulin Glargine (Lantus Solostar), 44 UNITS SC HS Insulin Lispro (Human) (Humalog Kwikpen), 22 UNITS SQ BID Insulin Lispro (Human) (Humalog Kwikpen), 20 UNITS SQ qsupper Magnesium Oxide (Mag-Ox), 400 MG PO BID Metoprolol Succinate (Metoprolol Succinate ER), 25 MG PO BID Naloxegol Oxalate (Movantik), 12.5 MG PO QPM Pancrelipase (Lipase-Protease- (Creon 96916), 2 CAP PO TIDM Pantoprazole (Pantoprazole Sodium), 40 MG PO DAILY Polyethylene Glycol 3350 (Miralax), 17 GM PO DAILY Sucralfate (Carafate), 1 GM PO QID Trazodone Hcl (Trazodone), 150 MG PO HS Warfarin Sodium (Coumadin), 3.5 MG PO DAILY Scheduled PRN Acetaminophen (Tylenol), 2 TAB PO Q6 PRN for Pain Albuterol Hfa (Ventolin Hfa), 2 PUFF INH QID PRN for SOB/Wheezing Hydrocodone/Acetaminophen 5MG/325MG ([place] 5MG/325MG), 1 TABLET PO PRN UD PRN for Pain Ondansetron Hcl (Zofran), 4 MG PO PC PRN for Nausea Allergies Coded Allergies: Azithromycin (Verified Allergy, Severe, RASH, 01/18/17) Iodinated Diagnostic Agents (Verified Allergy, Severe, HIVES, AIRWAY SWELLS FROM CT DYE, 01/18/17) Ceftriaxone (Verified Allergy, Intermediate, RASH, 06/04/17) Adhesives (Verified Allergy, Mild, RASH AND SORE SKIN FROM TAPE ADHESIVES , 01/18/17) Iodine (Verified Allergy, Mild, airway swells shut, 01/18/17) Morphine (Verified Allergy, Mild, stops heart, 01/18/17) Alcohol (Verified Allergy, Unknown, hives, 01/18/17) no alcohol wipes Atorvastatin (Verified Allergy, Unknown, UNKNOWN, 01/18/17) Isopropyl Alcohol (Verified Allergy, Unknown, UNKNOWN, 01/18/17) Lemon Oil (Verified Allergy, Unknown, UNKNOWN, 01/18/17) Lorazepam (Verified Allergy, Unknown, RASH, 01/18/17) Lovastatin (Verified Allergy, Unknown, MYALGIAS, 01/18/17) Ondansetron (Verified Allergy, Unknown, rash, 01/18/17) Rosuvastatin (Verified Allergy, Unknown, UNKNOWN, 01/18/17) Shellfish (Verified Allergy, Unknown, UNKNOWN, 01/18/17) Sulfamethoxazole w/Trimethoprim (Verified Allergy, Unknown, UNKNOWN, ) Ciprofloxacin (Verified Adverse Reaction, Unknown, INTERFERES WITH COUMADIN, 01/18/17) Ezetimibe (Verified Adverse Reaction, Unknown, RAPID HEART BEAT, 01/18/17) Gemfibrozil (Verified Adverse Reaction, Unknown, MYALGIAS, 01/18/17) Tramadol (Verified Adverse Reaction, Unknown, CHEST TIGHTNESS, 01/18/17) Vital Signs Date Time Temp Pulse Resp B/P (MAP) Pulse Ox O2 Delivery O2 Flow Rate FiO2 06/04/17 20:00 107 18 133/83 94 Room Air 06/04/17 19:43 95 18 134/90 93 Room Air 06/04/17 18:40 105 18 135/90 93 Room Air 06/04/17 17:03 112 06/04/17 17:01 36.9 109 20 130/83 97 Room Air Laboratory Results 06/04/17 17:32 Red Blood Count 5.14, Mean Corpuscular Volume 87.5, Mean Corpuscular Hemoglobin 30.9, Mean Corpuscular Hemoglobin Concent 35.3, Mean Platelet Volume 9.9, Neutrophils (%) (Auto) 61.6, Lymphocytes (%) (Auto) 25.9, Monocytes (%) (Auto) 11.5, Eosinophils (%) (Auto) 0.5, Basophils (%) (Auto) 0.4, Neutrophils # (Auto ) 6.36, Lymphocytes # (Auto) 2.68, Monocytes # (Auto) 1.19, Eosinophils # (Auto ) 0.05, Basophils # (Auto) 0.04 06/04/17 17:32 Test 06/04/17 17:31 06/04/17 17:32 Urine Color YELLOW Urine Appearance TURBID (CLEAR) Urine pH 8.5 (4.5-7.5) Urine Specific [place] 1.017 (1.000-1.030) Urine Protein NEG (NEG) Urine Glucose (UA) NEG (NEG) Urine Ketones NEG (NEG) Urine Occult Blood 3+ (NEG) Urine Nitrite POS (NEG) Urine Bilirubin NEG (NEG) Urine Urobilinogen NEG (NEG) Urine Leukocyte Esterase NEG (NEG) Urine WBC (Auto) 1-5 /hpf (0-5) Urine RBC (Auto) >30 /hpf (0-4) Urine Hyaline Casts (Auto) 1-5 /lpf (0-5) Urine Epithelial Cells (Auto) 10-20 /lpf (0-5) Urine Bacteria (Auto) 4+ (NEG) White Blood Count 10.33 K/uL (4.8-10.8) Red Blood Count 5.14 M/uL (4.2-5.4) Hemoglobin 15.9 g/dL (12.0-16.0) Hematocrit 45.0 % (37-47) Mean Corpuscular Volume 87.5 fL (80-100) Mean Corpuscular Hemoglobin 30.9 pg (25-34) Mean Corpuscular Hemoglobin Concent 35.3 g/dl (32-36) Platelet Count 242 K/uL (130-400) Mean Platelet Volume 9.9 fL (7.4-10.4) Neutrophils (%) (Auto) 61.6 % Lymphocytes (%) (Auto) 25.9 % Monocytes (%) (Auto) 11.5 % Eosinophils (%) (Auto) 0.5 % Basophils (%) (Auto) 0.4 % Neutrophils # (Auto) 6.36 K/uL (1.4-6.5) Lymphocytes # (Auto) 2.68 K/uL (1.2-3.4) Monocytes # (Auto) 1.19 K/uL (0.11-0.59) Eosinophils # (Auto) 0.05 K/uL (0-0.5) Basophils # (Auto) 0.04 K/uL (0-0.2) RDW Standard Deviation 43.1 fL (36.4-46.3) RDW Coefficient of Variation 13.4 % (11.5-14.5) Immature Granulocyte % (Auto) 0.1 % Immature Granulocyte # (Auto) 0.01 K/uL (0.00-0.02) Prothrombin Time 22.7 SECONDS (9.0-12.0) Prothromb Time International Ratio 2.2 (0.9-1.1) Anion Gap 6.0 mmol/L (3-11) Est Creatinine Clear Calc Drug Dose 81.1 ml/min Estimated GFR () 97.4 Estimated GFR (Non- 84.1 BUN/Creatinine Ratio 15.9 (10-20) Calcium Level 11.3 mg/dl (8.5-10.1) Total Bilirubin 0.4 mg/dl (0.2-1) Direct Bilirubin 0.1 mg/dl (0-0.2) Aspartate Amino Transf (AST/SGOT) 17 U/L (15-37) Alanine Aminotransferase (ALT/SGPT) 27 U/L (12-78) Alkaline Phosphatase 87 U/L (45-117) Total Protein 8.0 gm/dl (6.4-8.2) Albumin 3.8 gm/dl (3.4-5.0) Lipase 557 U/L (73-393) Medications Administered Medications (Trade) Dose Ordered Sig/August Route Start Time Stop Time Status Last Admin Dose Admin Sodium Chloride 1,000 ml @ 999 mls/hr Q1H1M STAT IV 06/04/17 17:20 06/04/17 18:20 DC 06/04/17 17:57 999 MLS/HR Hydromorphone HCl (Dilaudid Inj) 0.5 mg NOW STAT IV 06/04/17 17:20 06/04/17 17:25 DC 06/04/17 17:57 0.5 MG Ondansetron HCl (Zofran Inj) 4 mg NOW STAT IV 06/04/17 17:20 06/04/17 17:25 DC 06/04/17 17:56 4 MG Ceftriaxone Sodium (Rocephin Inj) 1 gm NOW STAT IV 06/04/17 18:28 06/04/17 18:31 DC 06/04/17 18:37 1 GM Diphenhydramine HCl (Benadryl Inj) 25 mg NOW STAT IV 06/04/17 18:46 06/04/17 18:47 DC 06/04/17 18:49 25 MG Sodium Chloride 1,000 ml @ 999 mls/hr Q1H1M STAT IV 06/04/17 19:35 06/04/17 20:35 DC 06/04/17 19:42 999 MLS/HR Hydromorphone HCl (Dilaudid Inj) 0.5 mg NOW STAT IV 06/04/17 19:35 06/04/17 19:37 DC 06/04/17 19:42 0.5 MG Ondansetron HCl (Zofran Inj) 4 mg Q6H PRN IV 06/04/17 20:30 07/04/17 20:29 06/04/17 22:04 4 MG Departure Information Impression Primary Impression: Acute on chronic pancreatitis Additional Impression: UTI (urinary tract infection) Dispostion Admitted as an inpatient Condition FAIR Referrals Michael Sepulveda M.D. (PCP) Patient Instructions [facility] Problem Qualifiers Additional Impression: UTI (urinary tract infection) Urinary tract infection type: acute cystitis Hematuria presence: with hematuria Qualified Codes: N30.01 - Acute cystitis with hematuria
--- NOTE | 2017-06-04 19:09 | DIAGNOSTIC IMAGING REPORT ---
ABDOMEN AND PELVIS CT WITHOUT CONTRAST CT DOSE: 669.94 mGy.cm HISTORY: Acute bilateral flank pain eval ureteral stone, pancreatitis, diverticulitis TECHNIQUE: Multiaxial CT images of the abdomen and pelvis were performed without contrast. A dose lowering technique was utilized adhering to the principles of ALARA. COMPARISON STUDY: CT abdomen and pelvis 02/18/2016. FINDINGS: Subsegmental groundglass opacities of the inferior segment lingula favor atelectasis. There is no pneumatosis or pneumoperitoneum identified. Imaged inferior cardiac chambers are the upper limits of normal with small pericardial effusion. Coronary arterial disease is noted. Prior cholecystectomy. Fatty infiltration of the liver. Spleen, and right adrenal gland are unremarkable. Calcifications associated with the left adrenal gland suggest prior hemorrhage or infection. Nodular thickening of the left adrenal gland redemonstrated. Study is limited secondary to patient motion. There is interstitial and mild peripancreatic inflammatory stranding adjacent to the distal pancreatic body and pancreatic tail without drainable fluid collection identified. Scattered pancreatic calcifications are also noted suggesting sequela of chronic pancreatitis. No drainable fluid collections are identified. Bilateral nephrolithiasis with 6 mm nonobstructing calculus of the inferior pole left kidney. No ureteral calculi or obstructive uropathy. Large cyst of the medial inferior pole right kidney measures up to 7.1 x 6.6 cm. The bladder is partially collapsed. Prior hysterectomy. No adnexal mass lesions identified. Moderate atherosclerosis of the aorta without aneurysm. No bulky adenopathy identified. There is no bowel obstruction or focal bowel wall thickening identified. Postsurgical changes are noted within the distal stomach, small bowel and rectum. Small fat filled left lower lateral abdominal wall incisional hernias noted, diastases 1.6 cm. Soft tissues are unremarkable. Bones appear intact. Intervertebral disc space narrowing is seen at L4-L5 and L5-S1. IMPRESSION: 1. Mild interstitial and peripancreatic inflammatory stranding with trace free fluid of the distal pancreatic body and pancreatic tail suggests acute pancreatitis without drainable fluid collection. Correlate with lipase level. Additionally, there is evidence of chronic pancreatitis. 2. Bilateral nephrolithiasis without ureteral calculi or obstructive uropathy. 3. Hepatic steatosis. 4. Prior cholecystectomy and hysterectomy. 5. Small pericardial effusion. Electronically signed by: Michel Garcia M.D. 06/04/2017 7:08 PM Dictated Date/Time: 06/04/2017 7:00 PM
[2017-06-04] MEDS ORDERED: GLUCOSE 40% GEL 15 GM TUBE PO PRN (19:15)
[2017-06-04] MEDS ORDERED: GLUCOSE 10 TABS/TUBE PO PRN (19:15)
[2017-06-04] MEDS ORDERED: GLUCAGON FOR INJ 1 MG VIAL SQ PRN (19:15)
[2017-06-04] MEDS ORDERED: DOCU-94 PO (19:19)
[2017-06-04] MEDS ORDERED: TRC145 PO (19:19)
[2017-06-04] MEDS ORDERED: TRAZ50TA35 PO (19:19)
[2017-06-04] MEDS ORDERED: ALL100 PO (19:37)
[2017-06-04] MEDS ORDERED: INSU100I2 SQ ×2 (19:37→20:00)
[2017-06-04] MEDS ORDERED: TPRSR/25 PO (19:37)
[2017-06-04] MEDS ORDERED: VNTHFA/IN INH (19:37)
[2017-06-04] MEDS ORDERED: PANT40TA2 PO (19:37)
[2017-06-04] MEDS ORDERED: WLC625 PO (19:37)
[2017-06-04] MEDS ORDERED: COLE1TAB PO (19:37)
[2017-06-04] MEDS ORDERED: DILT120C43 PO (19:37)
[2017-06-04] MEDS ORDERED: HYDR-5688 PO (19:37)
[2017-06-04] MEDS ORDERED: WARFARIN SOD 3 MG TAB PO SCH (20:00)
[2017-06-04] MEDS ORDERED: FENTANYL 25 MCG/HR TDSY TD SCH (20:00)
[2017-06-04] MEDS ORDERED: NICOTINE 7 MG/24 HR TDSY TD PRN (20:00)
--- NOTE | 2017-06-04 20:45 | History and Physical ---
History & Physical Date & Time of Service: Jun 04, 2017 at 19:45 Chief Complaint: Abd, Back Pain Primary Care Physician: Michael Sepulveda M.D. History of Present Illness Source: patient 61 y/o F Hx chronic AF, DM II, CAD, gout, chronic pancreatitis. The pt developed abdominal and back pain, accompanied by nausea and a few episodes of vomiting earlier in the day. She states that her symptoms are consistent with bouts of pancreatitis she has had in the past. She denies CP, SOB, diarrhea or fevers. A CT abdomen is consistent with acute pancreatitis. Lipase is mildly elevated, a UA is (+). Past Medical/Surgical History PAST MEDICAL HISTORY: 1. Atrial fibrillation 2. Diabetes mellitus, insulin-dependent 3. Anxiety disorder 4. Gastroesophageal reflux disorder 5. Hypercholesterolemia 6. Coronary artery disease 7. History of TIA 3 8. History of diverticulitis 9. History of brain aneurysm 10. Chronic recurrent pancreatitis 11. Anxiety disorder 12. Chronically anticoagulated on Coumadin 13. Gout 14. Renal calculi PAST SURGICAL HISTORY: 1. Appendectomy 2. Hysterectomy 3. Cholecystectomy 4. Cerebral aneurysm repair 1998 5. Whipple procedure 2013 Family History FH: cancer FH: heart disease Hypertension Kidney disease Kidney stones Seizures Social History Former smoker - No ETOH Smoking Status: Current Some Day Smoker Drug Use: none Marital Status: Housing status: lives with family Occupational Status: unemployed Immunizations History of Influenza Vaccine: No History of Tetanus Vaccine?: No History of Pneumococcal: No History of Hepatitis B Vaccine: No Allergies Coded Allergies: Azithromycin (Verified Allergy, Severe, RASH, 01/18/17) Iodinated Diagnostic Agents (Verified Allergy, Severe, HIVES, AIRWAY SWELLS FROM CT DYE, 01/18/17) Ceftriaxone (Verified Allergy, Intermediate, RASH, 06/04/17) Adhesives (Verified Allergy, Mild, RASH AND SORE SKIN FROM TAPE ADHESIVES , 01/18/17) Iodine (Verified Allergy, Mild, airway swells shut, 01/18/17) Morphine (Verified Allergy, Mild, stops heart, 01/18/17) Alcohol (Verified Allergy, Unknown, hives, 01/18/17) no alcohol wipes Atorvastatin (Verified Allergy, Unknown, UNKNOWN, 01/18/17) Isopropyl Alcohol (Verified Allergy, Unknown, UNKNOWN, 01/18/17) Lemon Oil (Verified Allergy, Unknown, UNKNOWN, 01/18/17) Lorazepam (Verified Allergy, Unknown, RASH, 01/18/17) Lovastatin (Verified Allergy, Unknown, MYALGIAS, 01/18/17) Ondansetron (Verified Allergy, Unknown, rash, 01/18/17) Rosuvastatin (Verified Allergy, Unknown, UNKNOWN, 01/18/17) Shellfish (Verified Allergy, Unknown, UNKNOWN, 01/18/17) Sulfamethoxazole w/Trimethoprim (Verified Allergy, Unknown, UNKNOWN, ) Ciprofloxacin (Verified Adverse Reaction, Unknown, INTERFERES WITH COUMADIN, 01/18/17) Ezetimibe (Verified Adverse Reaction, Unknown, RAPID HEART BEAT, 01/18/17) Gemfibrozil (Verified Adverse Reaction, Unknown, MYALGIAS, 01/18/17) Tramadol (Verified Adverse Reaction, Unknown, CHEST TIGHTNESS, 01/18/17) Home Medications Scheduled Allopurinol (Allopurinol), 100 MG PO DAILY Ascorbic Acid (Vitamin C), 2 TAB PO NOON Cholecalciferol (Vitamin D3), 1 TAB PO BID Colestipol Hcl (Colestid), 2 GM PO BID Cyanocobalamin (Vitamin B-12), 1,000 MCG PO QAM Digoxin (Digox), 125 MCG PO QAM Diltiazem Hcl Coated Beads (Cartia Xt), 120 MG PO BID Docusate Sodium (Colace), 1 CAP PO BID Fenofibrate (Fenofibrate), 145 MG PO QAM Fish Oil ([place]ma-3), 1 CAP PO QPM Gabapentin (Neurontin), 100 MG PO TID Insulin Glargine (Lantus Solostar), 44 UNITS SC HS Insulin Lispro (Human) (Humalog Kwikpen), 22 UNITS SQ BID Insulin Lispro (Human) (Humalog Kwikpen), 20 UNITS SQ qsupper Magnesium Oxide (Mag-Ox), 400 MG PO BID Metoprolol Succinate (Metoprolol Succinate ER), 25 MG PO BID Naloxegol Oxalate (Movantik), 12.5 MG PO QPM Pancrelipase (Lipase-Protease- (Creon [id number]), 2 CAP PO TIDM Pantoprazole (Pantoprazole Sodium), 40 MG PO DAILY Polyethylene Glycol 3350 (Miralax), 17 GM PO DAILY Sucralfate (Carafate), 1 GM PO QID Trazodone Hcl (Trazodone), 150 MG PO HS Warfarin Sodium (Coumadin), 3.5 MG PO DAILY Scheduled PRN Acetaminophen (Tylenol), 2 TAB PO Q6 PRN for Pain Albuterol Hfa (Ventolin Hfa), 2 PUFF INH QID PRN for SOB/Wheezing Hydrocodone/Acetaminophen 5MG/325MG ([place] 5MG/325MG), 1 TABLET PO PRN UD PRN for Pain Ondansetron Hcl (Zofran), 4 MG PO PC PRN for Nausea Review of Systems Constitutional: No fever, No chills, No sweats Eyes: No worsening of vision ENT: No hearing loss, No nasal symptoms Respiratory: No cough, No sputum, No wheezing Cardiovascular: No chest pain, No orthopnea, No PND Abdomen: + pain, + nausea, + vomiting Musculoskeletal: No joint pain Genitourinary - Female: No dysuria, No urinary frequency, No urinary urgency Neurologic: No memory loss, No weakness Psychiatric: No depression symptoms Endocrine: No fatigue Hematologic / Lymphatic: No abnormal bleeding/bruising Integumentary: No rash Allergic / Immunologic: No environmental allergies Physical Exam Vital Signs Date Time Temp Pulse Resp B/P (MAP) Pulse Ox O2 Delivery O2 Flow Rate FiO2 06/04/17 19:43 95 18 134/90 93 Room Air 06/04/17 18:40 105 18 135/90 93 Room Air 06/04/17 17:03 112 06/04/17 17:01 36.9 109 20 130/83 97 Room Air General Appearance: WD/WN, + pertinent finding (Mildly distressed, middle-aged F) Head: normocephalic Eyes: normal inspection ENT: normal ENT inspection, pharynx normal Neck: supple, no JVD Respiratory/Chest: chest non-tender, lungs clear, normal breath sounds Cardiovascular: regular rate, rhythm, no edema, no gallop Abdomen/GI: normal bowel sounds, + pertinent finding (Mild, diffuse, upper abdominal tenderness) Back: normal inspection, no CVA tenderness Extremities/Musculoskelatal: normal inspection, no calf tenderness, normal capillary refill 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, no motor/sensory deficits, alert, oriented x 3 Skin: normal color Diagnostics Laboratory Results Results Past 24 Hours Test 06/04/17 17:31 06/04/17 17:32 Range/Units Urine Color YELLOW Urine Appearance TURBID CLEAR Urine pH 8.5 4.5-7.5 Urine Specific [place] 1.017 1.000-1.030 Urine Protein NEG NEG Urine Glucose (UA) NEG NEG Urine Ketones NEG NEG Urine Occult Blood 3+ NEG Urine Nitrite POS NEG Urine Bilirubin NEG NEG Urine Urobilinogen NEG NEG Urine Leukocyte Esterase NEG NEG Urine WBC (Auto) 1-5 0-5 /hpf Urine RBC (Auto) >30 0-4 /hpf Urine Hyaline Casts (Auto) 1-5 0-5 /lpf Urine Epithelial Cells (Auto) 10-20 0-5 /lpf Urine Bacteria (Auto) 4+ NEG White Blood Count 10.33 4.8-10.8 K/uL Red Blood Count 5.14 4.2-5.4 M/uL Hemoglobin 15.9 12.0-16.0 g/dL Hematocrit 45.0 37-47 % Mean Corpuscular Volume 87.5 80-100 fL Mean Corpuscular Hemoglobin 30.9 25-34 pg Mean Corpuscular Hemoglobin Concent 35.3 32-36 g/dl Platelet Count 242 130-400 K/uL Mean Platelet Volume 9.9 7.4-10.4 fL Neutrophils (%) (Auto) 61.6 % Lymphocytes (%) (Auto) 25.9 % Monocytes (%) (Auto) 11.5 % Eosinophils (%) (Auto) 0.5 % Basophils (%) (Auto) 0.4 % Neutrophils # (Auto) 6.36 1.4-6.5 K/uL Lymphocytes # (Auto) 2.68 1.2-3.4 K/uL Monocytes # (Auto) 1.19 0.11-0.59 K/uL Eosinophils # (Auto) 0.05 0-0.5 K/uL Basophils # (Auto) 0.04 0-0.2 K/uL RDW Standard Deviation 43.1 36.4-46.3 fL RDW Coefficient of Variation 13.4 11.5-14.5 % Immature Granulocyte % (Auto) 0.1 % Immature Granulocyte # (Auto) 0.01 0.00-0.02 K/uL Prothrombin Time 22.7 9.0-12.0 SECONDS Prothromb Time International Ratio 2.2 0.9-1.1 Sodium Level 136 136-145 mmol/L Potassium Level 3.6 3.5-5.1 mmol/L Chloride Level 103 98-107 mmol/L Carbon Dioxide Level 27 21-32 mmol/L Anion Gap 6.0 3-11 mmol/L Blood Urea Nitrogen 12 7-18 mg/dl Creatinine 0.76 0.60-1.20 mg/dl Est Creatinine Clear Calc Drug Dose 81.1 ml/min Estimated GFR () 97.4 Estimated GFR (Non- 84.1 BUN/Creatinine Ratio 15.9 10-20 Random Glucose 128 70-99 mg/dl Calcium Level 11.3 8.5-10.1 mg/dl Total Bilirubin 0.4 0.2-1 mg/dl Direct Bilirubin 0.1 0-0.2 mg/dl Aspartate Amino Transf (AST/SGOT) 17 15-37 U/L Alanine Aminotransferase (ALT/SGPT) 27 12-78 U/L Alkaline Phosphatase 87 45-117 U/L Total Protein 8.0 6.4-8.2 gm/dl Albumin 3.8 3.4-5.0 gm/dl Lipase 557 73-393 U/L Microbiology Results 06/04/17 Urine Culture, Received Pending Diagnostic Radiology CT: 1. Mild interstitial and peripancreatic inflammatory stranding with trace free fluid of the distal pancreatic body and pancreatic tail suggests acute pancreatitis without drainable fluid collection. Correlate with lipase level. Additionally, there is evidence of chronic pancreatitis. 2. Bilateral nephrolithiasis without ureteral calculi or obstructive uropathy. 3. Hepatic steatosis. 4. Prior cholecystectomy and hysterectomy. 5. Small pericardial effusion. Impression Assessment and Plan 61 y/o F Hx chronic AF, DM II, CAD, gout, chronic pancreatitis. The pt developed abdominal and back pain, accompanied by nausea and a few episodes of vomiting earlier in the day. She states that her symptoms are consistent with bouts of pancreatitis she has had in the past. She denies CP, SOB, diarrhea or fevers. A CT abdomen is consistent with acute pancreatitis. Lipase is mildly elevated, a UA is (+). 1) Acute pancreatitis - NPO, IVF, antiemetics, narcotics for pain control. Would consult GI if symptoms do not resolve 2) AF - rate is controlled with Metoprolol, Dig, Cardizem - she is due for a pacer on 06/10 at [place] and was told to hold Coumadin as of today 3) DM - placed on SS 4) CAD - no evidence of ACS - cont lipid lowering agents when tolerating PO 5) gout - cont Allopurinol 6) UA is (+) - placed on Ceftriaxone pending cultures 7) Continues to smoke - Nicotine patch and cessation advice provided Full code - currently anticoagulated with Coumadin which is held - if stay is extended would start Heparin or Lovenox Total time for this admit including review of labs, meds, imaging, records - discussion with pt and ER attending - 38 min Resuscitation Status VTE Prophylaxis Will order VTE Prophylaxis: Yes
[2017-06-04] MEDS ORDERED: WARFARIN PO SCH ×2 (21:00)
[2017-06-04] MEDS ORDERED: ALBUTEROL HFA 8 GM INHALER INH PRN (21:00)
[2017-06-04 22:00] VITALS: BP 151/88; PULSE 94; TEMP 36.6; O2SAT 94
[2017-06-04] MEDS: ONDANSETRON INJ 2 MG/ML 2 ML VIAL IV PRN (22:04)
[2017-06-04 22:12] VITALS: O2SAT 94
[2017-06-04] MEDS: DOCUSATE SODIUM 100 MG CAP PO SCH (22:36)
[2017-06-04] MEDS: NSS + 20MEQ KCL 1000ML 1,000 ML IV SCH (22:36)
[2017-06-04] MEDS: MAGNESIUM OXIDE 400 MG TAB PO SCH (22:37)
[2017-06-04] MEDS: TRAZODONE HCL 50 MG TAB PO SCH (22:37)
[2017-06-04] MEDS: SUCRALFATE 1 GM TAB PO SCH (22:37)
[2017-06-04] MEDS: METOPROLOL SUCC 25MG EXT REL TAB PO SCH (22:37)
[2017-06-04] MEDS: DILTIAZEM HCL 120 MG CAPCR PO SCH (22:38)
[2017-06-04] MEDS: GABAPENTIN 100 MG CAP PO SCH (22:38)
[2017-06-04] MEDS: HYDROmorphone INJ 0.5 MG/0.5 ML SYR IV PRN (22:39)
[2017-06-04] MEDS ORDERED: INFLUENZA VIRUS QUAD VACCINE 0.5 ML SYR IM. ONE (22:45)
[2017-06-04] MEDS ORDERED: INFLUENZA ADMINISTRATION CHARGE ONE (22:45)
[2017-06-04 23:28] VITALS: BP 138/82; PULSE 90; TEMP 36.9; O2SAT 92
[2017-06-05] MEDS: HYDROmorphone INJ 0.5 MG/0.5 ML SYR IV PRN ×6 (01:33→21:01)
[2017-06-05] MEDS: ONDANSETRON INJ 2 MG/ML 2 ML VIAL IV PRN ×4 (04:12→19:46)
[2017-06-05] MEDS ORDERED: NURSING DECISION MEDICATION ORDER SCH (05:00)
[2017-06-05] MEDS: NSS + 20MEQ KCL 1000ML 1,000 ML IV SCH (05:33)
[2017-06-05] MEDS: SUCRALFATE 1 GM TAB PO SCH ×4 (06:11→20:59)
[2017-06-05 06:12] LABS: MEAN CORPUSCULAR HGB CONC 34.1 g/dl (32-36); MEAN PLATELET VOLUME 10.2 fL (7.4-10.4); PLATELET COUNT 191 K/uL (130-400); RED CELL DISTRIBUTION WIDTH CV 13.6 % (11.5-14.5); RED CELL DISTRIBUTION WIDTH SD 43.7 fL (36.4-46.3); WHITE BLOOD COUNT 8.38 K/uL (4.8-10.8)
[2017-06-05] MEDS: INSULIN ASPART 100 UNITS/ML 3 ML PEN SC SCH ×4 (06:14→23:59)
[2017-06-05 06:22] LABS: INR 1.9 (0.9-1.1)
[2017-06-05] MEDS ORDERED: INSULIN ASPART 100 UNITS/ML 3 ML PEN SC SCH (06:30)
[2017-06-05 06:31] LABS: CALCIUM 9.8 mg/dl (8.5-10.1); CREATININE 0.46 mg/dl (0.60-1.20)
[2017-06-05 06:53] VITALS: BP 124/77; PULSE 84; TEMP 36.8; O2SAT 92
[2017-06-05 08:00] VITALS: O2SAT 92
[2017-06-05] MEDS ORDERED: PANCREAZE (LIPASE 10,500U) CAP PO SCH (08:00)
--- NOTE | 2017-06-05 08:35 | Hospitalist Progress Note ---
Hospitalist Progress Note Date of Service Jun 05, 2017. Subjective Pt evaluation today including: conversation w/ patient, physical exam, chart review, lab review, review of studies Pain: Epigastric, generalized abdominal pain PO Intake: poor, Sips of water Voiding: no voiding problems The patient was seen and examined this morning. Pt reports feeling extreme epigastric pain this morning, along with nausea, no vomiting. She denies any chest pain or pressure substernally- an EKG was obtained and showed atrial fibrillation without any signs of ischemia or ST wave inversion. After administration of Dilaudid for pain she had some improvement in her symptoms. Upon reexamination the patient complained of some indigestion and Maalox was ordered. She denies any fevers, sweats or chills. The patient had been able to take sips of water and eat chips of ice today. Patient has not had a bowel movement since being here. Additional Comments: Constitutional: No fever, sweats or chills Eyes: No diplopia, no worsening or blurred vision ENT: normal hearing, no trouble swallowing Respiratory: No cough, sputum, dyspnea at rest or on exertion Cardiovascular: No chest pain, tightness or palpitations Abdomen: + See HPI Musculoskeletal: No joint pain, calf pain, swelling Neurologic: No weakness, numbness/tingling, or balance problems Psychiatric: No anxiety or depression Skin: No rash or itch Objective Vital Signs Date Time Temp Pulse Resp B/P (MAP) Pulse Ox O2 Delivery O2 Flow Rate FiO2 06/05/17 06:53 36.8 84 20 124/77 (93) 92 Room Air 06/04/17 23:28 36.9 90 18 138/82 (100) 92 Room Air 06/04/17 22:12 94 Room Air 06/04/17 22:00 36.6 94 20 151/88 (109) 94 Room Air 06/04/17 21:35 95 18 126/78 93 06/04/17 20:00 107 18 133/83 94 Room Air 06/04/17 19:43 95 18 134/90 93 Room Air 06/04/17 18:40 105 18 135/90 93 Room Air 06/04/17 17:03 112 06/04/17 17:01 36.9 109 20 130/83 97 Room Air Physical Exam Notes: General: awake, alert, mild distress Head: Normocephalic, atraumatic ENT: PERRL, EOMI, no pharyngeal exudate, mucous membranes moist Chest: Clear to auscultation, on room air, no adventitious breath sounds Cardiac: irregularly irregular, rate controlled, no murmur, no JVD, normal peripheral pulses, good capillary refill Abdominal: NABS x 4 quadrants, soft,+ pain with percussion in all quadrants, + tender to light palpation, + guarding in the epigastric region Extremities: Normal inspection, no peripheral edema or erythema, calfs nontender to palpation Psych: Normal mood and affect Neuro: AAO x 3, strength intact bilaterally and related 5/5, no motor deficits, speech is clear, no peripheral sensory deficits Laboratory Results Last 24 Hours Test 06/04/17 17:31 06/04/17 17:32 06/04/17 22:11 06/05/17 05:51 Urine Color YELLOW Urine Appearance TURBID Urine pH 8.5 Urine Specific [place] 1.017 Urine Protein NEG Urine Glucose (UA) NEG Urine Ketones NEG Urine Occult Blood 3+ Urine Nitrite POS Urine Bilirubin NEG Urine Urobilinogen NEG Urine Leukocyte Esterase NEG Urine WBC (Auto) 1-5 /hpf Urine RBC (Auto) >30 /hpf Urine Hyaline Casts (Auto) 1-5 /lpf Urine Epithelial Cells (Auto) 10-20 /lpf Urine Bacteria (Auto) 4+ White Blood Count 10.33 K/uL 8.38 K/uL Red Blood Count 5.14 M/uL 4.66 M/uL Hemoglobin 15.9 g/dL 14.0 g/dL Hematocrit 45.0 % 41.0 % Mean Corpuscular Volume 87.5 fL 88.0 fL Mean Corpuscular Hemoglobin 30.9 pg 30.0 pg Mean Corpuscular Hemoglobin Concent 35.3 g/dl 34.1 g/dl Platelet Count 242 K/uL 191 K/uL Mean Platelet Volume 9.9 fL 10.2 fL Neutrophils (%) (Auto) 61.6 % Lymphocytes (%) (Auto) 25.9 % Monocytes (%) (Auto) 11.5 % Eosinophils (%) (Auto) 0.5 % Basophils (%) (Auto) 0.4 % Neutrophils # (Auto) 6.36 K/uL Lymphocytes # (Auto) 2.68 K/uL Monocytes # (Auto) 1.19 K/uL Eosinophils # (Auto) 0.05 K/uL Basophils # (Auto) 0.04 K/uL RDW Standard Deviation 43.1 fL 43.7 fL RDW Coefficient of Variation 13.4 % 13.6 % Immature Granulocyte % (Auto) 0.1 % Immature Granulocyte # (Auto) 0.01 K/uL Prothrombin Time 22.7 SECONDS 19.9 SECONDS Prothromb Time International Ratio 2.2 1.9 Sodium Level 136 mmol/L 138 mmol/L Potassium Level 3.6 mmol/L 4.0 mmol/L Chloride Level 103 mmol/L 109 mmol/L Carbon Dioxide Level 27 mmol/L 23 mmol/L Anion Gap 6.0 mmol/L 6.0 mmol/L Blood Urea Nitrogen 12 mg/dl 10 mg/dl Creatinine 0.76 mg/dl 0.46 mg/dl Est Creatinine Clear Calc Drug Dose 81.1 ml/min 134.0 ml/min Estimated GFR () 97.4 123.6 Estimated GFR (Non- 84.1 106.6 BUN/Creatinine Ratio 15.9 21.3 Random Glucose 128 mg/dl 160 mg/dl Calcium Level 11.3 mg/dl 9.8 mg/dl Total Bilirubin 0.4 mg/dl Direct Bilirubin 0.1 mg/dl Aspartate Amino Transf (AST/SGOT) 17 U/L Alanine Aminotransferase (ALT/SGPT) 27 U/L Alkaline Phosphatase 87 U/L Total Protein 8.0 gm/dl Albumin 3.8 gm/dl Lipase 557 U/L Bedside Glucose 124 mg/dl Magnesium Level 1.8 mg/dl Test 06/05/17 05:58 Bedside Glucose 163 mg/dl Assessment and Plan 61 y/o F Hx chronic AF, DM II, CAD, gout, chronic pancreatitis. The pt developed abdominal and back pain, accompanied by nausea and a few episodes of vomiting earlier in the day. She states that her symptoms are consistent with bouts of pancreatitis she has had in the past. She denies CP, SOB, diarrhea or fevers. A CT abdomen is consistent with acute pancreatitis. Lipase is mildly elevated, a UA is (+). Acute pancreatitis Hx of recurrent pancreatitis Hx of pancreatic cancer S/P Whipple's 2013 - NPO except sips and chips, NSS + KCL at 100ml/hr, antiemetics, narcotics for pain control. - will consult GI if symptoms do not resolve -patient follows with [facility] as an outpatient for recurrent pancreatitis. The patient does have a history of pancreatic cancer in 2013 and has since had a Whipple's procedure. She did not receive any chemotherapy or radiation. Patient has a follow-up with GI within the next 2 months. She also has follow-up with her family physician, Dr. dang within the next few weeks. -Given extra dose of Dilaudid this morning for pain control as well as added on Maalox for indigestion type symptoms AFib - rate is controlled with Metoprolol, Dig, Cardizem - she is due for a pacer on 06/10 at [place] and was told to hold Coumadin as of today -EKG rechecked this morning for upper epigastric discomfort -no signs of ST-T wave inversion or ischemia E. coli UTI - UA is (+) - placed on Ceftriaxone (06/04), pending culture sensitivity DM - placed on ISS with accuchecks CAD - no evidence of ACS - cont lipid lowering agents when tolerating PO Gout - cont Allopurinol Tobacco Use - Continues to smoke - Nicotine patch provided and cessation advised DVT ppx: currently anticoagulated with Coumadin which is held - if stay is extended would start Heparin or Lovenox CODE STATUS: FULL CODE Disposition: Patient from home, lives with her
[2017-06-05] MEDS ORDERED: NITROGLYCERIN 0.4 MG SL PER TAB CHARGE SL STA (09:16)
[2017-06-05] MEDS ORDERED: NITROGLYCERIN 0.4 MG SL PER TAB CHARGE ONE (09:19)
[2017-06-05 09:20] VITALS: BP 151/81; PULSE 95; O2SAT 95
[2017-06-05 09:25] VITALS: BP 146/93
[2017-06-05] MEDS: DIGOXIN 0.125 MG TAB PO SCH (09:30)
[2017-06-05] MEDS: DILTIAZEM HCL 120 MG CAPCR PO SCH ×2 (09:33→20:59)
[2017-06-05] MEDS: DOCUSATE SODIUM 100 MG CAP PO SCH ×2 (09:33→20:59)
[2017-06-05] MEDS: METOPROLOL SUCC 25MG EXT REL TAB PO SCH ×2 (09:33→20:58)
[2017-06-05] MEDS: MAGNESIUM OXIDE 400 MG TAB PO SCH ×2 (09:34→20:59)
[2017-06-05] MEDS: GABAPENTIN 100 MG CAP PO SCH ×3 (09:35→21:00)
[2017-06-05] MEDS: PANTOprazole SOD 40 MG TAB PO SCH (09:35)
[2017-06-05] MEDS: ALLOPURINOL 100 MG TAB PO SCH (09:36)
[2017-06-05] MEDS: INSULIN GLARGINE SOLOSTAR 100 UNITS/ML 3 ML PEN SC SCH (09:40)
[2017-06-05] MEDS ORDERED: NURSING VERBAL MED ORDER ONE (10:30)
[2017-06-05] MEDS ORDERED: HYDROmorphone INJ 0.5 MG/0.5 ML SYR IV ONE (10:46)
[2017-06-05] MEDS: ALUMINUM/MAGNESIUM/SIMETH (MAALOX MAX) 30 ML UDC PO PRN (11:29)
[2017-06-05] MEDS: POTASSIUM CHLORIDE INJ 10 MEQ in SODIUM CHLORIDE 0.9% 1000ML 1,000 ML IV SCH (13:06)
[2017-06-05 14:54] VITALS: BP 114/72; PULSE 82; TEMP 36.8; O2SAT 92
[2017-06-05] MEDS: PROMETHAZINE HCL INJ 25 MG in SODIUM CHLORIDE 0.9% 50ML 50 ML IV PRN ×2 (16:35→22:45)
[2017-06-05] MEDS: CEFTRIAXONE SOD INJ 1 GM in DEXTROSE 5% ADD-VANTAGE 50ML 50 ML IV SCH (17:53)
[2017-06-05] MEDS: TRAZODONE HCL 50 MG TAB PO SCH (21:00)
[2017-06-05 23:01] VITALS: BP 131/81; PULSE 103; TEMP 36.8; O2SAT 91
[2017-06-06] MEDS: POTASSIUM CHLORIDE INJ 10 MEQ in SODIUM CHLORIDE 0.9% 1000ML 1,000 ML IV SCH ×2 (00:23→08:53)
[2017-06-06] MEDS: HYDROmorphone INJ 0.5 MG/0.5 ML SYR IV PRN ×8 (00:24→23:42)
[2017-06-06] MEDS: ONDANSETRON INJ 2 MG/ML 2 ML VIAL IV PRN ×4 (02:43→21:34)
[2017-06-06] MEDS: ALUMINUM/MAGNESIUM/SIMETH (MAALOX MAX) 30 ML UDC PO PRN ×2 (04:33→23:39)
[2017-06-06] MEDS: SUCRALFATE 1 GM TAB PO SCH ×4 (05:59→21:27)
[2017-06-06] MEDS: INSULIN ASPART 100 UNITS/ML 3 ML PEN SC SCH ×3 (06:00→17:47)
[2017-06-06 07:24] VITALS: BP 144/78; PULSE 89; TEMP 36.7; O2SAT 93
[2017-06-06 07:47] VITALS: BP 131/80; PULSE 74
[2017-06-06 07:52] LABS: INR 1.3 (0.9-1.1)
--- NOTE | 2017-06-06 08:34 | Hospitalist Progress Note ---
Hospitalist Progress Note Date of Service Jun 06, 2017. Subjective Pt evaluation today including: conversation w/ patient, physical exam, chart review, lab review, review of studies Pain: Epigastric and LLQ PO Intake: NPO except sips and chips Voiding: no voiding problems The patient was seen and examined this morning. Pt reports having extreme epigastric and left lower quadrant pain today. She notes that it is better whenever she is asleep. Patient is requesting for a slight increase in frequency of pain medication as she feels too long between doses. She also notes that she has had increased nausea but has not vomited. She has been able to take some sips and chips. The patient denies any lightheadedness or dizziness with taking a pain medication. She notes her last BM was last Monday. Pt is willing to trial suppository today, and then once able to tolerate PO intake is willing to trial miralax. Nursing notes that after 1 dose of Dilaudid 0.5 mg that she became acutely lightheaded and required 2 person assist to move her to the bedside commode. There was no blood pressure taken that time. Constitutional: + sweats (Overnight), No fever, No chills, No fatigue Eyes: No redness, No diplopia ENT: No nasal symptoms, No sore throat, No trouble swallowing Respiratory: No cough, No shortness of breath, No dyspnea at rest Cardiovascular: No chest pain, No edema Abdomen: + pain, + nausea, + constipation (Last bowel movement was over 5 days ago), No vomiting, No diarrhea, No GI bleeding Musculoskeletal: No joint pain, No muscle pain, No swelling Female : No dysuria Objective Vital Signs Date Time Temp Pulse Resp B/P (MAP) Pulse Ox O2 Delivery O2 Flow Rate FiO2 06/06/17 07:47 74 131/80 (97) 06/06/17 07:24 36.7 89 20 144/78 (100) 93 Room Air 06/06/17 00:00 Room Air 06/05/17 23:01 36.8 103 18 131/81 (98) 91 Room Air 06/05/17 19:00 Room Air 06/05/17 16:00 Room Air 06/05/17 14:54 36.8 82 18 114/72 (86) 92 06/05/17 09:30 97 06/05/17 09:25 146/93 (110) 06/05/17 09:20 95 18 151/81 (104) 95 Nasal Cannula 2.0 Physical Exam Notes: General: awake, alert, NAD Head: Normocephalic, atraumatic ENT: PERRL, EOMI, no pharyngeal exudate, mucous membranes moist Chest: Clear to auscultation, on room air, no adventitious breath sounds Cardiac: irregularly irregular, rate controlled, no murmur, no JVD, normal peripheral pulses, good capillary refill Abdominal: NABS x 4 quadrants, soft,+ pain with percussion in all quadrants, + tender to light palpation, + guarding in the epigastric region and LLQ Extremities: Normal inspection, no peripheral edema or erythema, calfs nontender to palpation Psych: Appears to have slightly anxious affect Neuro: AAO x 3, strength intact bilaterally and related 5/5, no motor deficits, speech is clear, no peripheral sensory deficits Laboratory Results Last 24 Hours Test 06/05/17 09:13 06/05/17 09:35 06/05/17 11:48 06/05/17 17:52 Bedside Glucose 170 mg/dl 161 mg/dl 127 mg/dl Troponin I < 0.015 ng/ml Test 06/05/17 23:56 06/06/17 06:10 06/06/17 07:25 Bedside Glucose 137 mg/dl 156 mg/dl Prothrombin Time 13.4 SECONDS Prothromb Time International Ratio 1.3 Assessment and Plan 61 y/o F Hx chronic AF, DM II, CAD, gout, chronic pancreatitis. The pt developed abdominal and back pain, accompanied by nausea and a few episodes of vomiting earlier in the day. She states that her symptoms are consistent with bouts of pancreatitis she has had in the past. She denies CP, SOB, diarrhea or fevers. A CT abdomen is consistent with acute pancreatitis. Lipase is mildly elevated, a UA is (+). Acute pancreatitis Hx of recurrent pancreatitis Hx of pancreatic cancer S/P Whipple's 2013 - NPO except sips and chips, NSS + KCL at 100ml/hr, antiemetics, narcotics for pain control. - consult GI since symptoms are not improved at this point. - Add dulcolax suppository today, and daily prn. Trial of miralax once tolerating PO intake. -patient follows with [facility] as an outpatient for recurrent pancreatitis. The patient does have a history of pancreatic cancer in 2013 and has since had a Whipple's procedure. She did not receive any chemotherapy or radiation. Patient has a follow-up with GI within the next 2 months. She also has follow-up with her family physician, Dr. dang within the next few weeks. - Change dilaudid to Q2H today and monitor for increased lightheadedness and dizziness. - Antiemetics with zofran, add compazine. - cont Maalox for indigestion type symptoms AFib - rate is controlled with Metoprolol, Dig, Cardizem - she is due for a pacer on 06/10 at [place] and was told to hold Coumadin starting 06/04 - Will likely need to start heparin today, pending recommendations from GI. Pt unlikely to have pacemaker placed this week with acute pancreatitis flare. E. coli UTI - UA is (+) - placed on Ceftriaxone (06/04), pending culture sensitivity DM - placed on ISS with accuchecks CAD - no evidence of ACS - cont lipid lowering agents when tolerating PO Gout - cont Allopurinol Tobacco Use - Continues to smoke - Nicotine patch provided and cessation advised DVT ppx: currently anticoagulated with Coumadin which is held - if stay is extended would start Heparin or Lovenox CODE STATUS: FULL CODE Disposition: Patient from home, lives with her , no CM needs anticipated.
[2017-06-06 08:52] VITALS: BP 148/93; PULSE 97
[2017-06-06] MEDS: ALLOPURINOL 100 MG TAB PO SCH (08:53)
[2017-06-06] MEDS: DIGOXIN 0.125 MG TAB PO SCH (08:53)
[2017-06-06] MEDS: GABAPENTIN 100 MG CAP PO SCH ×3 (08:54→21:28)
[2017-06-06] MEDS: MAGNESIUM OXIDE 400 MG TAB PO SCH ×2 (08:54→21:28)
[2017-06-06] MEDS: PANTOprazole SOD 40 MG TAB PO SCH (08:54)
[2017-06-06] MEDS: DOCUSATE SODIUM 100 MG CAP PO SCH ×2 (08:54→21:27)
[2017-06-06] MEDS: METOPROLOL SUCC 25MG EXT REL TAB PO SCH ×2 (08:54→21:28)
[2017-06-06] MEDS: DILTIAZEM HCL 120 MG CAPCR PO SCH ×2 (08:55→21:27)
[2017-06-06] MEDS: INSULIN GLARGINE SOLOSTAR 100 UNITS/ML 3 ML PEN SC SCH (09:02)
[2017-06-06] MEDS ORDERED: HYDROmorphone INJ 0.5 MG/0.5 ML SYR IV STA (10:12)
[2017-06-06] MEDS ORDERED: PROCHLORPERAZINE INJ 10 MG in SYRINGE 8 ML IV PRN (10:15)
[2017-06-06] MEDS ORDERED: BISACODYL 10 MG SUPP PR PRN (10:15)
[2017-06-06] MEDS ORDERED: BISACODYL 10 MG SUPP PR ONE (11:45)
[2017-06-06] MEDS: LACTATED RINGER'S 1000ML 1,000 ML IV SCH ×2 (12:04→18:45)
--- NOTE | 2017-06-06 13:48 | Gastrointestinal Consultation ---
Gastrointestinal Consultation Date of Consultation: Jun 06, 2017 Attending Physician: Wojciech Mccallum Consulting Physician: Michelle Selby Reason for Consultation: Pancreatitis History of Present Illness Patient is a 61 year old female who presented to ED w c/o abd pain, n/v She has hx of pancreatic ca s/p Whipple in 2013 done by [facility] hospital group. She had been followed by Dr. Claude Murguia at [facility]. She does have chronic abd pain and had celiac plexus block in 01/[address] Chelsey Lopez. Said a few days ago started to have worsening abd pain, n/v. She also notes that she had her last BM over a week ago. Takes Miralax on daily basis but can't tolerate PO intake given n/v. On eval, CBC normal, CMP showed normal LFTs, Lipase 550. CT abd/pelvis w/o contrast: 1. Mild interstitial and peripancreatic inflammatory stranding with trace free fluid of the distal pancreatic body and pancreatic tail suggests acute pancreatitis without drainable fluid collection. Correlate with lipase level. Additionally, there is evidence of chronic pancreatitis. 2. Bilateral nephrolithiasis without ureteral calculi or obstructive uropathy. 3. Hepatic steatosis. 4. Prior cholecystectomy and hysterectomy. 5. Small pericardial effusion. Past Medical/Surgical History Medical Problems: (1) Acute on chronic pancreatitis Status: Acute (2) Back pain Status: Acute (3) Flank pain Status: Acute (4) Left flank pain Status: Acute (5) UTI (urinary tract infection) Status: Acute (6) UTI (urinary tract infection) Status: Acute Past Medical History: PAST MEDICAL HISTORY: 1. Atrial fibrillation 2. Diabetes mellitus, insulin-dependent 3. Anxiety disorder 4. Gastroesophageal reflux disorder 5. Hypercholesterolemia 6. Coronary artery disease 7. History of TIA 3 8. History of diverticulitis 9. History of brain aneurysm 10. Chronic recurrent pancreatitis 11. Anxiety disorder 12. Chronically anticoagulated on Coumadin 13. Gout 14. Renal calculi Past Surgical History: PAST SURGICAL HISTORY: 1. Appendectomy 2. Hysterectomy 3. Cholecystectomy 4. Cerebral aneurysm repair 1998 5. Whipple procedure 2013 Family History FH: cancer FH: heart disease Hypertension Kidney disease Kidney stones Seizures Social History Smoking Status: Current Every Day Smoker Alcohol Use: none Drug Use: none Marital Status: Housing Status: lives with family Occupation Status: unemployed Allergies Coded Allergies: Azithromycin (Verified Allergy, Severe, RASH, 01/18/17) Iodinated Diagnostic Agents (Verified Allergy, Severe, HIVES, AIRWAY SWELLS FROM CT DYE, 01/18/17) Ceftriaxone (Verified Allergy, Intermediate, RASH, 06/04/17) Adhesives (Verified Allergy, Mild, RASH AND SORE SKIN FROM TAPE ADHESIVES , 01/18/17) Iodine (Verified Allergy, Mild, airway swells shut, 01/18/17) Morphine (Verified Allergy, Mild, stops heart, 01/18/17) Alcohol (Verified Allergy, Unknown, hives, 01/18/17) no alcohol wipes Atorvastatin (Verified Allergy, Unknown, UNKNOWN, 01/18/17) Isopropyl Alcohol (Verified Allergy, Unknown, UNKNOWN, 01/18/17) Lemon Oil (Verified Allergy, Unknown, UNKNOWN, 01/18/17) Lorazepam (Verified Allergy, Unknown, RASH, 01/18/17) Lovastatin (Verified Allergy, Unknown, MYALGIAS, 01/18/17) Ondansetron (Verified Allergy, Unknown, rash, 01/18/17) Rosuvastatin (Verified Allergy, Unknown, UNKNOWN, 01/18/17) Shellfish (Verified Allergy, Unknown, UNKNOWN, 01/18/17) Sulfamethoxazole w/Trimethoprim (Verified Allergy, Unknown, UNKNOWN, ) Ciprofloxacin (Verified Adverse Reaction, Unknown, INTERFERES WITH COUMADIN, 01/18/17) Ezetimibe (Verified Adverse Reaction, Unknown, RAPID HEART BEAT, 01/18/17) Gemfibrozil (Verified Adverse Reaction, Unknown, MYALGIAS, 01/18/17) Tramadol (Verified Adverse Reaction, Unknown, CHEST TIGHTNESS, 01/18/17) Current Medications Home Meds and Scripts Medications Dose Route/Sig Max Daily Dose Days Date Category Dose Instructions Humalog Kwikpen (Insulin Lispro (Human)) 100 Unit/Ml Inj 20 Units SQ QSUPPER 06/04/17 Reported Pantoprazole Sodium (Pantoprazole) 40 Mg Tab 40 Mg PO DAILY 06/04/17 Reported Metoprolol Succinate ER (Metoprolol Succinate) 25 Mg Tabcr 25 Mg PO BID 06/04/17 Reported Colestid (Colestipol Hcl) 1 Gm Tab 2 Gm PO BID 06/04/17 Reported Cartia Xt (Diltiazem Hcl Coated Beads) 120 Mg Cap 120 Mg PO BID 06/04/17 Reported Allopurinol 100 Mg Tab 100 Mg PO DAILY 06/04/17 Reported Ventolin Hfa (Albuterol) 200 Puffs/33657 Mcg Aers 2 Puff INH QID PRN 06/04/17 Reported Humalog Kwikpen (Insulin Lispro (Human)) 100 Unit/Ml Inj 22 Units SQ BID 06/04/17 Reported take with breakfast & lunch [place] 5MG/325MG (Acetaminophen/Hydrocodone Bitart) Tab 1 Tablet PO PRN UD PRN 06/04/17 Reported PRN PAIN Tylenol (Acetaminophen) 500 Mg Tab 2 Tab PO Q6 PRN 2 01/18/17 Reported Vitamin C (Ascorbic Acid) 500 Mg Tab 2 Tab PO NOON 12/21/16 Reported Coumadin (Warfarin Sodium) 3 Mg Tab 3.5 Mg PO DAILY 11/23/[address] JAY Miralax (Polyethylene Glycol 3350) 1 Pow Pow 17 Gm PO DAILY 11/23/16 [address] [place]-3 (Fish Oil) 1 Ea Cap 1 Cap PO QPM 11/23/16 Reported Movantik (Naloxegol Oxalate) 12.5 Mg Tab 12.5 Mg PO QPM 11/23/16 Reported Creon 13973 (Pancrelipase (Lipase-Protease-) 1 Cap Cap 2 Cap PO TIDM 11/23/16 Reported Neurontin (Gabapentin) 100 Mg Cap 100 Mg PO TID 11/23/16 Reported Digox (Digoxin) 125 Mcg Tab 125 Mcg PO QAM 11/23/16 Reported Vitamin B-12 (Cyanocobalamin) 1,000 Mcg Tab 1,000 Mcg PO QAM 11/23/16 Reported Vitamin D3 (Cholecalciferol) 2,000 Unit Tab 1 Tab PO BID 11/23/16 Reported Zofran (Ondansetron HCl) 4 Mg Tab 4 Mg PO PC PRN 03/26/16 Reported Mag-Ox (Magnesium Oxide) 400 Mg Tab 400 Mg PO BID 03/26/16 Reported Lantus Solostar (Insulin Glargine) 100 Unit/Ml Inj 44 Units SC HS 03/26/16 Reported Carafate (Sucralfate) 1 Gm Tab 1 Gm PO QID 03/26/16 Reported DISSOLVE TABLET INTO 4OZ OF WATER FOUR TIMES DAILY Fenofibrate 145 Mg Tab 145 Mg PO QAM 06/09/15 Reported Trazodone (Trazodone HCl) 50 Mg Tab 150 Mg PO HS 06/09/15 Reported Colace (Docusate Sodium) 100 Mg Cap 1 Cap PO BID 06/09/15 Reported Review of Systems Constitutional: No fever, No chills Respiratory: No cough, No shortness of breath Abdomen: + pain, + nausea, + vomiting, + constipation Physical Exam Date Time Temp Pulse Resp B/P (MAP) Pulse Ox O2 Delivery O2 Flow Rate FiO2 06/06/17 08:53 97 06/06/17 08:52 97 148/93 (111) 06/06/17 08:00 Room Air 06/06/17 07:47 74 131/80 (97) 06/06/17 07:24 36.7 89 20 144/78 (100) 93 Room Air 06/06/17 00:00 Room Air 06/05/17 23:01 36.8 103 18 131/81 (98) 91 Room Air 06/05/17 19:00 Room Air 06/05/17 16:00 Room Air 06/05/17 14:54 36.8 82 18 114/72 (86) 92 General Appearance: + mild distress (c/o abd pain ) Neck: supple, no JVD, trachea midline Respiratory/Chest: normal breath sounds, no respiratory distress, no accessory muscle use Cardiovascular: regular rate, rhythm, no gallop, no murmur Abdomen: normal bowel sounds, soft, + tenderness (diffuse ) Extremities: normal inspection, no pedal edema, no calf tenderness Neurologic/Psych: alert, normal mood/affect, oriented x 3 Skin: normal color, no jaundice, no rash Laboratory Results Last 24 Hours Test 06/05/17 17:52 06/05/17 23:56 06/06/17 06:10 06/06/17 07:25 Bedside Glucose 127 mg/dl 137 mg/dl 156 mg/dl Prothrombin Time 13.4 SECONDS Prothromb Time International Ratio 1.3 Test 06/06/17 08:34 06/06/17 11:43 Bedside Glucose 153 mg/dl 152 mg/dl Impression Patient is a 61 year old female with hx of pancreas ca s/p Whipple in 2013, currently admitted for n/v, abd pain, labs and CT imaging consistent with pancreatitis. She does have chronic pancreatitis and abd pain, managed by Dr. Claude Murguia in [facility]. Plan - NPO except sips and chips - Bowel regimen: Dulcolax 10mg VT x 1 now; once she can tolerate PO intake will start on Miralax - LR @ 150ml/hr - Consult Pain Management for possible repeat celiac plexus injection for abd pain - Symptomatic management otherwise. - Outpt f/u with Dr. Claude Murguia (GI) on DC I have seen and examined the patient with YARED Brannon whose note reflects our findings and plan. H/o Whipple for pancreatic cancer. Conservative mgt of flare of chronic pancreatitis. NPO. IVF hydration. Follow labs. Can consider repeat celiac block. She is followed by Dr. Murguia as an outpatient.Will need close follow up after discharge.
[2017-06-06 15:23] VITALS: BP 121/76; PULSE 82; TEMP 36.5; O2SAT 90
[2017-06-06] MEDS: CEFTRIAXONE SOD INJ 1 GM in DEXTROSE 5% ADD-VANTAGE 50ML 50 ML IV SCH (18:45)
[2017-06-06] MEDS: TRAZODONE HCL 50 MG TAB PO SCH (21:27)
[2017-06-06 23:36] VITALS: BP 126/84; PULSE 89; TEMP 37.2; O2SAT 91
[2017-06-07] MEDS: LACTATED RINGER'S 1000ML 1,000 ML IV SCH ×4 (01:33→22:03)
[2017-06-07] MEDS: HYDROmorphone INJ 0.5 MG/0.5 ML SYR IV PRN ×7 (03:00→17:04)
[2017-06-07] MEDS: ONDANSETRON INJ 2 MG/ML 2 ML VIAL IV PRN ×4 (03:03→17:04)
[2017-06-07] MEDS: SUCRALFATE 1 GM TAB PO SCH ×4 (05:34→21:12)
[2017-06-07] MEDS: INSULIN ASPART 100 UNITS/ML 3 ML PEN SC SCH ×4 (05:52→17:40)
[2017-06-07 07:02] VITALS: BP 106/70; PULSE 81; TEMP 36.6; O2SAT 100
[2017-06-07 07:15] LABS: BASO % 0.5 %; BASO ABS # 0.04 K/uL (0-0.2); EOS % 0.7 %; EOS ABS # 0.06 K/uL (0-0.5); HEMATOCRIT 42.1 % (37-47); HEMOGLOBIN 14.3 g/dL (12.0-16.0); IG# 0.01 K/uL (0.00-0.02); LYMPH % 17.3 %; LYMPH ABS # 1.46 K/uL (1.2-3.4); MEAN CELL VOLUME 87.2 fL (80-100); MEAN CORPUSCULAR HEMOGLOBIN 29.6 pg (25-34); MEAN PLATELET VOLUME 10.5 fL (7.4-10.4); MONO % 12.9 %; MONO ABS # 1.09 K/uL (0.11-0.59); NEUT % 68.5 %; NEUT ABS # 5.78 K/uL (1.4-6.5); PLATELET COUNT 168 K/uL (130-400); RED CELL DISTRIBUTION WIDTH CV 13.3 % (11.5-14.5); RED CELL DISTRIBUTION WIDTH SD 42.6 fL (36.4-46.3); WHITE BLOOD COUNT 8.44 K/uL (4.8-10.8)
[2017-06-07 07:22] LABS: INR 1.1 (0.9-1.1)
[2017-06-07 07:31] LABS: CALCIUM 10.3 mg/dl (8.5-10.1); CREATININE 0.44 mg/dl (0.60-1.20); POTASSIUM 3.9 mmol/L (3.5-5.1)
[2017-06-07 08:00] VITALS: O2SAT 100
[2017-06-07] MEDS: GABAPENTIN 100 MG CAP PO SCH ×3 (08:24→21:12)
[2017-06-07] MEDS: DILTIAZEM HCL 120 MG CAPCR PO SCH ×2 (08:24→21:12)
[2017-06-07] MEDS: METOPROLOL SUCC 25MG EXT REL TAB PO SCH ×2 (08:25→21:13)
[2017-06-07] MEDS: MAGNESIUM OXIDE 400 MG TAB PO SCH ×2 (08:25→21:12)
[2017-06-07] MEDS: ALLOPURINOL 100 MG TAB PO SCH (08:25)
[2017-06-07] MEDS: DOCUSATE SODIUM 100 MG CAP PO SCH ×2 (08:25→21:12)
[2017-06-07] MEDS: PANTOprazole SOD 40 MG TAB PO SCH (08:25)
[2017-06-07] MEDS: DIGOXIN 0.125 MG TAB PO SCH (08:25)
[2017-06-07] MEDS: INSULIN GLARGINE SOLOSTAR 100 UNITS/ML 3 ML PEN SC SCH ×2 (09:30→10:11)
[2017-06-07] MEDS ORDERED: NURSING VERBAL MED ORDER ONE (09:30)
[2017-06-07] MEDS ORDERED: METHYLNALTREXONE BROMIDE INJ 12 MG/0.6 ML SYR SQ ONE (09:45)
--- NOTE | 2017-06-07 09:51 | Hospitalist Progress Note ---
Hospitalist Progress Note Date of Service Jun 07, 2017. Subjective Pt evaluation today including: conversation w/ patient, physical exam, lab review, review of studies, review of inpatient medication list Voiding: no voiding problems Patient resting in bed. Tolerating clears. Pain has not improved much- pain management planning for injection of Monday. +constipation x1 week- refused suppository yesterday, Relistor SQ injection today per GI, will try suppository later if needed. Patient denies any fever, chills, sweats, lightheadedness, dizziness, vision changes, CP, palpitations, edema, SOB, wheezing, cough, nausea, vomiting, diarrhea, urinary symptoms, melena, numbness/tingling, weakness, muscle/joint pain, anxiety/depression, active bleeding, or new skin discoloration/changes. Medications Current Inpatient Medications Medications (Trade) Dose Ordered Sig/August Route Start Time Stop Time Status Last Admin Dose Admin Albuterol (Ventolin Hfa Inhaler) 2 puffs QID PRN INH 06/04/17 21:00 07/04/17 20:59 Allopurinol (Zyloprim Tab) 100 mg DAILY PO 06/05/17 09:00 07/05/17 08:59 06/07/17 08:25 100 MG Digoxin (Lanoxin Tab) 0.125 mg QAM PO 06/05/17 09:00 07/05/17 08:59 06/07/17 08:25 0.125 MG Diltiazem HCl (Cardizem Cd Cap) 120 mg BID PO 06/04/17 21:00 07/04/17 20:59 06/07/17 08:24 120 MG Docusate Sodium (coLACE CAP) 100 mg BID PO 06/04/17 21:00 07/04/17 20:59 06/07/17 08:25 100 MG Gabapentin (Neurontin Cap) 100 mg TID PO 06/04/17 21:00 07/04/17 20:59 06/07/17 08:24 100 MG Magnesium Oxide (Mag-Ox Tab) 400 mg BID PO 06/04/17 21:00 07/04/17 20:59 06/07/17 08:25 400 MG Metoprolol Succinate (Toprol Xl Tab) 25 mg BID PO 06/04/17 21:00 07/04/17 20:59 06/07/17 08:25 25 MG Nicotine (Nicoderm Cq 7 Mg Patch) 1 patch DAILY PRN TD 06/04/17 20:00 07/04/17 19:59 06/05/17 01:24 1 PATCH Pantoprazole Sodium (Protonix Tab) 40 mg DAILY PO 06/05/17 09:00 07/05/17 08:59 06/07/17 08:25 40 MG Sucralfate (Carafate Tab) 1 gm ACHS PO 06/04/17 21:00 07/04/17 20:59 06/07/17 10:39 1 GM Trazodone HCl (Desyrel Tab) 150 mg HS PO 06/04/17 21:00 07/04/17 20:59 06/06/17 21:27 150 MG Miscellaneous Information (Order Awaiting Action) 1 ea QS N/A 06/05/17 00:00 07/05/17 00:00 Amylase/Lipase/ Protease (Pancreaze (Lipase 10,500U) Cap) 2 cap TIDM PO 06/05/17 08:00 07/05/17 07:59 Future Hold Ceftriaxone Sodium 1 gm/ Dextrose 50 ml @ 100 mls/hr Q24H IV 06/05/17 18:00 06/08/17 18:29 06/06/17 18:45 100 MLS/HR Glucagon (Glucagon Inj) 1 mg UD PRN SQ 06/04/17 19:15 07/04/17 19:14 Glucose (Glucose 40% Gel) 15-30 GRAMS 15 GRAMS... UD PRN PO 06/04/17 19:15 07/04/17 19:14 Glucose (Glucose Chew Tab) 4-8 Tablets 4 Tabl... UD PRN PO 06/04/17 19:15 07/04/17 19:14 Insulin Aspart (novoLOG ASPART) SLIDING SCALE If C... Q6 SC 06/05/17 06:00 07/05/17 05:59 06/05/17 12:12 1 UNITS Ondansetron HCl (Zofran Inj) 4 mg Q4 PRN IV 06/05/17 08:15 07/04/17 20:29 06/07/17 07:32 4 MG Promethazine HCl 25 mg/Sodium Chloride 51 ml @ 204 mls/hr Q6H PRN IV 06/05/17 08:15 07/05/17 08:14 06/05/17 22:45 204 MLS/HR Al Hydrox/Mg Hydrox/Simethicone (Maalox Max Susp) 30 ml Q6H PRN PO 06/05/17 11:15 07/05/17 11:14 06/06/17 23:39 30 ML Diphenhydramine HCl (Benadryl Cap) 50 mg DAILY@1730 PRN PO 06/05/17 17:30 07/05/17 17:29 06/06/17 17:44 50 MG Hydromorphone HCl (Dilaudid Inj) 0.5 mg Q2H PRN IV 06/06/17 10:15 06/18/17 21:14 06/07/17 09:38 0.5 MG Prochlorperazine Edisylate 10 mg/ Syringe 10 ml @ 5 mls/min Q8H PRN IV 06/06/17 10:15 07/06/17 10:14 Bisacodyl (Dulcolax Supp) 10 mg DAILY PRN LA 06/06/17 10:15 07/06/17 10:14 Lactated Ringer's 1,000 ml @ 150 mls/hr Q6H40M IV 06/06/17 11:45 07/06/17 11:44 06/07/17 07:35 150 MLS/HR Insulin Glargine (Lantus Solostar Pen) 10 units DAILY SC 06/07/17 10:00 07/05/17 08:59 06/07/17 10:11 10 UNITS Warfarin Sodium (Coumadin Tab) 3 mg DAILY@16 PO 06/07/17 16:00 07/07/17 15:59 Objective Vital Signs Date Time Temp Pulse Resp B/P (MAP) Pulse Ox O2 Delivery O2 Flow Rate FiO2 06/07/17 08:25 81 06/07/17 08:00 100 Room Air 06/07/17 07:02 36.6 81 18 106/70 (82) 100 Room Air 06/07/17 00:00 Room Air 06/06/17 23:36 37.2 89 18 126/84 (98) 91 Room Air 06/06/17 16:00 Room Air 06/06/17 15:23 36.5 82 18 121/76 (91 90 Physical Exam General Appearance: no apparent distress, + obese Eyes: normal inspection, PERRL ENT: hearing grossly normal Neck: supple Respiratory/Chest: lungs clear, no respiratory distress, no accessory muscle use Cardiovascular: + irregularly irregular (rate controlled ) Abdomen: normal bowel sounds, soft, + tenderness (ttp L-sided- diffuse ) Extremities: no pedal edema, no calf tenderness Neurologic/Psychiatric: alert, normal mood/affect, oriented x 3 Skin: normal color, warm/dry, no rash Laboratory Results Last 24 Hours Test 06/06/17 11:43 06/07/17 00:40 06/07/17 05:51 06/07/17 06:41 Bedside Glucose 152 mg/dl 157 mg/dl 158 mg/dl White Blood Count 8.44 K/uL Red Blood Count 4.83 M/uL Hemoglobin 14.3 g/dL Hematocrit 42.1 % Mean Corpuscular Volume 87.2 fL Mean Corpuscular Hemoglobin 29.6 pg Mean Corpuscular Hemoglobin Concent 34.0 g/dl Platelet Count 168 K/uL Mean Platelet Volume 10.5 fL Neutrophils (%) (Auto) 68.5 % Lymphocytes (%) (Auto) 17.3 % Monocytes (%) (Auto) 12.9 % Eosinophils (%) (Auto) 0.7 % Basophils (%) (Auto) 0.5 % Neutrophils # (Auto) 5.78 K/uL Lymphocytes # (Auto) 1.46 K/uL Monocytes # (Auto) 1.09 K/uL Eosinophils # (Auto) 0.06 K/uL Basophils # (Auto) 0.04 K/uL RDW Standard Deviation 42.6 fL RDW Coefficient of Variation 13.3 % Immature Granulocyte % (Auto) 0.1 % Immature Granulocyte # (Auto) 0.01 K/uL Prothrombin Time 11.1 SECONDS Prothromb Time International Ratio 1.1 Sodium Level 135 mmol/L Potassium Level 3.9 mmol/L Chloride Level 103 mmol/L Carbon Dioxide Level 24 mmol/L Anion Gap 8.0 mmol/L Blood Urea Nitrogen 8 mg/dl Creatinine 0.44 mg/dl Est Creatinine Clear Calc Drug Dose 140.1 ml/min Estimated GFR () 125.4 Estimated GFR (Non- 108.2 BUN/Creatinine Ratio 18.8 Random Glucose 144 mg/dl Calcium Level 10.3 mg/dl Lipase 497 U/L Assessment and Plan 61 y/o F Hx chronic AF, DM II, CAD, gout, chronic pancreatitis. The pt developed abdominal and back pain, accompanied by nausea and a few episodes of vomiting earlier in the day. She states that her symptoms are consistent with bouts of pancreatitis she has had in the past. She denies CP, SOB, diarrhea or fevers. A CT abdomen is consistent with acute pancreatitis. Lipase is mildly elevated, a UA is (+). Acute pancreatitis , h/o recurrent pancreatitis, h/o pancreatic cancer s/p Whipple's in 2013- follows w/ Dr. Murguia: - NPO except sips and chips--> advance to clear liquid diet today per GI - LR @ 150 ml/hr - Compazine, Phenergan, Zofran PRN for nausea - IV Dilaudid PRN for pain management - Bowel regimen- Dulcolax suppository PRN, add MiraLAX daily once tolerating PO - Lipase 557--> 497 today - GI consulted, appreciate recommendations- consult pain management for nerve block, Relistor SQ for constipation x1 today- may give additional dose tomorrow if needed - Pain management consulted, appreciate recommendations- planning for celiac plexus injection Monday A. fib- rate controlled, CAD- STABLE: - Continue Metoprolol, Digoxin, Cardizem - Resume lipid lower agent once tolerating PO - Coumadin was held for pacemaker implantation scheduled for 06/09- pt cancelled surgery- will resume Coumadin 3 mg HS once pain management procedure E. coli UTI- pansensitive: Will keep on IV Rocephin until tolerating PO intake- treatment started on 06/04 T2DM: - Decreased Lantus 20 u daily to 10 u daily while NPO - BSG ACHS and ISS Gout: Continue Allopurinol Tobacco Use: - Nicotine pain - Smoking cessation counselling DVT prophylaxis: Heparin SQ BID- hold prior to pain management procedure Code status: LEVEL I, FULL Disposition: Patient from home, lives with her - no CM needs anticipated.
--- NOTE | 2017-06-07 11:08 | Gastroenterology Progress Note ---
Progress Note Date of Service: Jun 07, 2017 Subjective Pt evaluation today including: conversation w/ patient, physical exam, chart review, lab review, review of studies, review of inpatient medication list Pt still w abd pain but a bit less and wants to try CL diet now. No BMs yet. Said seen by Pain Management, planned for repeat celiac plexus block on Monday Review of Systems Constitutional: No fever, No chills Respiratory: No cough, No shortness of breath Abdomen: + pain (improved), + nausea (improved), No vomiting Skin: No rash, No itch, No jaundice Medications Current Inpatient Medications Medications (Trade) Dose Ordered Sig/August Route Start Time Stop Time Status Last Admin Dose Admin Albuterol (Ventolin Hfa Inhaler) 2 puffs QID PRN INH 06/04/17 21:00 07/04/17 20:59 Allopurinol (Zyloprim Tab) 100 mg DAILY PO 06/05/17 09:00 07/05/17 08:59 06/07/17 08:25 100 MG Digoxin (Lanoxin Tab) 0.125 mg QAM PO 06/05/17 09:00 07/05/17 08:59 06/07/17 08:25 0.125 MG Diltiazem HCl (Cardizem Cd Cap) 120 mg BID PO 06/04/17 21:00 07/04/17 20:59 06/07/17 08:24 120 MG Docusate Sodium (coLACE CAP) 100 mg BID PO 06/04/17 21:00 07/04/17 20:59 06/07/17 08:25 100 MG Gabapentin (Neurontin Cap) 100 mg TID PO 06/04/17 21:00 07/04/17 20:59 06/07/17 08:24 100 MG Magnesium Oxide (Mag-Ox Tab) 400 mg BID PO 06/04/17 21:00 07/04/17 20:59 06/07/17 08:25 400 MG Metoprolol Succinate (Toprol Xl Tab) 25 mg BID PO 06/04/17 21:00 07/04/17 20:59 06/07/17 08:25 25 MG Nicotine (Nicoderm Cq 7 Mg Patch) 1 patch DAILY PRN TD 06/04/17 20:00 07/04/17 19:59 06/05/17 01:24 1 PATCH Pantoprazole Sodium (Protonix Tab) 40 mg DAILY PO 06/05/17 09:00 07/05/17 08:59 06/07/17 08:25 40 MG Sucralfate (Carafate Tab) 1 gm ACHS PO 06/04/17 21:00 07/04/17 20:59 06/07/17 10:39 1 GM Trazodone HCl (Desyrel Tab) 150 mg HS PO 06/04/17 21:00 07/04/17 20:59 06/06/17 21:27 150 MG Miscellaneous Information (Order Awaiting Action) 1 ea QS N/A 06/05/17 00:00 07/05/17 00:00 Amylase/Lipase/ Protease (Pancreaze (Lipase 10,500U) Cap) 2 cap TIDM PO 06/05/17 08:00 07/05/17 07:59 Future Hold Ceftriaxone Sodium 1 gm/ Dextrose 50 ml @ 100 mls/hr Q24H IV 06/05/17 18:00 06/08/17 18:29 06/06/17 18:45 100 MLS/HR Glucagon (Glucagon Inj) 1 mg UD PRN SQ 06/04/17 19:15 07/04/17 19:14 Glucose (Glucose 40% Gel) 15-30 GRAMS 15 GRAMS... UD PRN PO 06/04/17 19:15 07/04/17 19:14 Glucose (Glucose Chew Tab) 4-8 Tablets 4 Tabl... UD PRN PO 06/04/17 19:15 07/04/17 19:14 Insulin Aspart (novoLOG ASPART) SLIDING SCALE If C... Q6 SC 06/05/17 06:00 07/05/17 05:59 06/05/17 12:12 1 UNITS Ondansetron HCl (Zofran Inj) 4 mg Q4 PRN IV 06/05/17 08:15 07/04/17 20:29 06/07/17 07:32 4 MG Promethazine HCl 25 mg/Sodium Chloride 51 ml @ 204 mls/hr Q6H PRN IV 06/05/17 08:15 07/05/17 08:14 06/05/17 22:45 204 MLS/HR Al Hydrox/Mg Hydrox/Simethicone (Maalox Max Susp) 30 ml Q6H PRN PO 06/05/17 11:15 07/05/17 11:14 06/06/17 23:39 30 ML Diphenhydramine HCl (Benadryl Cap) 50 mg DAILY@1730 PRN PO 06/05/17 17:30 07/05/17 17:29 06/06/17 17:44 50 MG Hydromorphone HCl (Dilaudid Inj) 0.5 mg Q2H PRN IV 06/06/17 10:15 06/18/17 21:14 06/07/17 09:38 0.5 MG Prochlorperazine Edisylate 10 mg/ Syringe 10 ml @ 5 mls/min Q8H PRN IV 06/06/17 10:15 07/06/17 10:14 Bisacodyl (Dulcolax Supp) 10 mg DAILY PRN [place] 06/06/17 10:15 07/06/17 10:14 Lactated Ringer's 1,000 ml @ 150 mls/hr Q6H40M IV 06/06/17 11:45 07/06/17 11:44 06/07/17 07:35 150 MLS/HR Insulin Glargine (Lantus Solostar Pen) 10 units DAILY SC 06/07/17 10:00 07/05/17 08:59 06/07/17 10:11 10 UNITS Warfarin Sodium (Coumadin Tab) 3 mg DAILY@16 PO 06/07/17 16:00 07/07/17 15:59 UNV Objective Vital Signs Date Time Temp Pulse Resp B/P (MAP) Pulse Ox O2 Delivery O2 Flow Rate FiO2 06/07/17 08:25 81 06/07/17 08:00 100 Room Air 06/07/17 07:02 36.6 81 18 106/70 (82) 100 Room Air 06/07/17 00:00 Room Air 06/06/17 23:36 37.2 89 18 126/84 (98) 91 Room Air 06/06/17 16:00 Room Air 06/06/17 15:23 36.5 82 18 121/76 (91) 90 Physical Exam General Appearance: WD/WN, no apparent distress Eyes: normal inspection, PERRL, EOMI Neck: supple, no JVD, trachea midline Respiratory/Chest: normal breath sounds, no respiratory distress, no accessory muscle use Cardiovascular: regular rate, rhythm, no gallop, no murmur Abdomen: soft, + abnormal bowel sounds (hypoactive), + tenderness (across upper abd ) Extremities: normal inspection, no pedal edema, no calf tenderness Neurologic/Psych: alert, normal mood/affect, oriented x 3 Skin: normal color, no jaundice, no rash Laboratory Results Last 24 Hours Test 06/06/17 11:43 06/07/17 00:40 06/07/17 05:51 06/07/17 06:41 Bedside Glucose 152 mg/dl 157 mg/dl 158 mg/dl White Blood Count 8.44 K/uL Red Blood Count 4.83 M/uL Hemoglobin 14.3 g/dL Hematocrit 42.1 % Mean Corpuscular Volume 87.2 fL Mean Corpuscular Hemoglobin 29.6 pg Mean Corpuscular Hemoglobin Concent 34.0 g/dl Platelet Count 168 K/uL Mean Platelet Volume 10.5 fL Neutrophils (%) (Auto) 68.5 % Lymphocytes (%) (Auto) 17.3 % Monocytes (%) (Auto) 12.9 % Eosinophils (%) (Auto) 0.7 % Basophils (%) (Auto) 0.5 % Neutrophils # (Auto) 5.78 K/uL Lymphocytes # (Auto) 1.46 K/uL Monocytes # (Auto) 1.09 K/uL Eosinophils # (Auto) 0.06 K/uL Basophils # (Auto) 0.04 K/uL RDW Standard Deviation 42.6 fL RDW Coefficient of Variation 13.3 % Immature Granulocyte % (Auto) 0.1 % Immature Granulocyte # (Auto) 0.01 K/uL Prothrombin Time 11.1 SECONDS Prothromb Time International Ratio 1.1 Sodium Level 135 mmol/L Potassium Level 3.9 mmol/L Chloride Level 103 mmol/L Carbon Dioxide Level 24 mmol/L Anion Gap 8.0 mmol/L Blood Urea Nitrogen 8 mg/dl Creatinine 0.44 mg/dl Est Creatinine Clear Calc Drug Dose 140.1 ml/min Estimated GFR () 125.4 Estimated GFR (Non- 108.2 BUN/Creatinine Ratio 18.8 Random Glucose 144 mg/dl Calcium Level 10.3 mg/dl Lipase 497 U/L Assessment and Plan Patient is a 61 year old female with hx of pancreas ca s/p Whipple in 2013, currently admitted for n/v, abd pain, labs and CT imaging consistent with pancreatitis. She does have chronic pancreatitis and abd pain, managed by Dr. Claude Murguia in [facility]. Today having slightly less abd pain, no n/v, wants to try CL diet. Plans - CL diet - Try Relistor 12mg subq injection today; may add Bisacodyl 10mg [place] suppository if no BM - LR @ 150ml/hr - Consult Pain Management for possible repeat celiac plexus injection for abd pain -> plan for Monday - Symptomatic management otherwise. - Outpt f/u with Dr. Claude Murguia (GI) on DC
--- NOTE | 2017-06-07 11:31 | Pain Management Consultation ---
Pain Management Consultation Date of Consultation Jun 07, 2017. Reason for Consultation Pancreatitis History This si a 61 y/o white female that is known to the [facility] for pancreatitis. Over the last 6 days she has experienced an acute flare up on pancreatitis. She describes a sharp stabbing pain in the left upper abdomen that shoots into the back. Patient tried to stay home - NPO and rest but the pain became unbearable she did into the hospital for admission. She is currently receiving Dilaudid IV x 2 hours which does provide mild pain relief. Pain is currently 9/10. Movement is aggravating the pain. laying supine mildly helps the pain. Patient does report nausea, vomiting, constipation, and difficulty sleeping. Patient has previously received a celiac plexus block on 01/18/17 which did provide pain relief until last week. She is chronically on Coumadin and was planning to have a pacemaker placed on monday, Coumadin has been held. The procedure has been cancelled as she is in too much pain and feels weak. Case discussed with Dr. Santana Past Medical: PAST MEDICAL HISTORY: 1. Atrial fibrillation 2. Diabetes mellitus, insulin-dependent 3. Anxiety disorder 4. Gastroesophageal reflux disorder 5. Hypercholesterolemia 6. Coronary artery disease 7. History of TIA 3 8. History of diverticulitis 9. History of brain aneurysm 10. Tobacco use disorder 11. Anxiety disorder 12. Chronically anticoagulated on Coumadin 13. Chronic recurrent pancreatitis Past Surgical: PAST SURGICAL HISTORY: 1. Appendectomy 2. Hysterectomy 3. Cholecystectomy 4. Cerebral aneurysm repair 1998 5. Whipple procedure 2013 Family History FH: cancer FH: heart disease Hypertension Kidney disease Kidney stones Seizures Social / Work History Marital Status: Housing Status: lives with family Occupation: unemployed Allergies Coded Allergies: Azithromycin (Verified Allergy, Severe, RASH, 01/18/17) Iodinated Diagnostic Agents (Verified Allergy, Severe, HIVES, AIRWAY SWELLS FROM CT DYE, 01/18/17) Ceftriaxone (Verified Allergy, Intermediate, RASH, 06/04/17) Adhesives (Verified Allergy, Mild, RASH AND SORE SKIN FROM TAPE ADHESIVES , 01/18/17) Iodine (Verified Allergy, Mild, airway swells shut, 01/18/17) Morphine (Verified Allergy, Mild, stops heart, 01/18/17) Alcohol (Verified Allergy, Unknown, hives, 01/18/17) no alcohol wipes Atorvastatin (Verified Allergy, Unknown, UNKNOWN, 01/18/17) Isopropyl Alcohol (Verified Allergy, Unknown, UNKNOWN, 01/18/17) Lemon Oil (Verified Allergy, Unknown, UNKNOWN, 01/18/17) Lorazepam (Verified Allergy, Unknown, RASH, 01/18/17) Lovastatin (Verified Allergy, Unknown, MYALGIAS, 01/18/17) Ondansetron (Verified Allergy, Unknown, rash, 01/18/17) Rosuvastatin (Verified Allergy, Unknown, UNKNOWN, 01/18/17) Shellfish (Verified Allergy, Unknown, UNKNOWN, 01/18/17) Sulfamethoxazole w/Trimethoprim (Verified Allergy, Unknown, UNKNOWN, ) Ciprofloxacin (Verified Adverse Reaction, Unknown, INTERFERES WITH COUMADIN, 01/18/17) Ezetimibe (Verified Adverse Reaction, Unknown, RAPID HEART BEAT, 01/18/17) Gemfibrozil (Verified Adverse Reaction, Unknown, MYALGIAS, 01/18/17) Tramadol (Verified Adverse Reaction, Unknown, CHEST TIGHTNESS, 01/18/17) Medications Current Inpatient Medications Medications (Trade) Dose Ordered Sig/August Route Start Time Stop Time Status Last Admin Dose Admin Albuterol (Ventolin Hfa Inhaler) 2 puffs QID PRN INH 06/04/17 21:00 07/04/17 20:59 Allopurinol (Zyloprim Tab) 100 mg DAILY PO 06/05/17 09:00 07/05/17 08:59 06/07/17 08:25 100 MG Digoxin (Lanoxin Tab) 0.125 mg QAM PO 06/05/17 09:00 07/05/17 08:59 06/07/17 08:25 0.125 MG Diltiazem HCl (Cardizem Cd Cap) 120 mg BID PO 06/04/17 21:00 07/04/17 20:59 06/07/17 08:24 120 MG Docusate Sodium (coLACE CAP) 100 mg BID PO 06/04/17 21:00 07/04/17 20:59 06/07/17 08:25 100 MG Gabapentin (Neurontin Cap) 100 mg TID PO 06/04/17 21:00 07/04/17 20:59 06/07/17 08:24 100 MG Magnesium Oxide (Mag-Ox Tab) 400 mg BID PO 06/04/17 21:00 07/04/17 20:59 06/07/17 08:25 400 MG Metoprolol Succinate (Toprol Xl Tab) 25 mg BID PO 06/04/17 21:00 07/04/17 20:59 06/07/17 08:25 25 MG Nicotine (Nicoderm Cq 7 Mg Patch) 1 patch DAILY PRN TD 06/04/17 20:00 07/04/17 19:59 06/05/17 01:24 1 PATCH Pantoprazole Sodium (Protonix Tab) 40 mg DAILY PO 06/05/17 09:00 07/05/17 08:59 06/07/17 08:25 40 MG Sucralfate (Carafate Tab) 1 gm ACHS PO 06/04/17 21:00 07/04/17 20:59 06/07/17 10:39 1 GM Trazodone HCl (Desyrel Tab) 150 mg HS PO 06/04/17 21:00 07/04/17 20:59 06/06/17 21:27 150 MG Miscellaneous Information (Order Awaiting Action) 1 ea QS N/A 06/05/17 00:00 07/05/17 00:00 Amylase/Lipase/ Protease (Pancreaze (Lipase 10,500U) Cap) 2 cap TIDM PO 06/05/17 08:00 07/05/17 07:59 Future Hold Ceftriaxone Sodium 1 gm/ Dextrose 50 ml @ 100 mls/hr Q24H IV 06/05/17 18:00 06/08/17 18:29 06/06/17 18:45 100 MLS/HR Glucagon (Glucagon Inj) 1 mg UD PRN SQ 06/04/17 19:15 07/04/17 19:14 Glucose (Glucose 40% Gel) 15-30 GRAMS 15 GRAMS... UD PRN PO 06/04/17 19:15 07/04/17 19:14 Glucose (Glucose Chew Tab) 4-8 Tablets 4 Tabl... UD PRN PO 06/04/17 19:15 07/04/17 19:14 Insulin Aspart (novoLOG ASPART) SLIDING SCALE If C... Q6 SC 06/05/17 06:00 07/05/17 05:59 06/05/17 12:12 1 UNITS Ondansetron HCl (Zofran Inj) 4 mg Q4 PRN IV 06/05/17 08:15 07/04/17 20:29 06/07/17 07:32 4 MG Promethazine HCl 25 mg/Sodium Chloride 51 ml @ 204 mls/hr Q6H PRN IV 06/05/17 08:15 07/05/17 08:14 06/05/17 22:45 204 MLS/HR Al Hydrox/Mg Hydrox/Simethicone (Maalox Max Susp) 30 ml Q6H PRN PO 06/05/17 11:15 07/05/17 11:14 06/06/17 23:39 30 ML Diphenhydramine HCl (Benadryl Cap) 50 mg DAILY@1730 PRN PO 06/05/17 17:30 07/05/17 17:29 06/06/17 17:44 50 MG Hydromorphone HCl (Dilaudid Inj) 0.5 mg Q2H PRN IV 06/06/17 10:15 06/18/17 21:14 06/07/17 09:38 0.5 MG Prochlorperazine Edisylate 10 mg/ Syringe 10 ml @ 5 mls/min Q8H PRN IV 06/06/17 10:15 07/06/17 10:14 Bisacodyl (Dulcolax Supp) 10 mg DAILY PRN WI 06/06/17 10:15 07/06/17 10:14 Lactated Ringer's 1,000 ml @ 150 mls/hr Q6H40M IV 06/06/17 11:45 07/06/17 11:44 06/07/17 07:35 150 MLS/HR Insulin Glargine (Lantus Solostar Pen) 10 units DAILY SC 06/07/17 10:00 07/05/17 08:59 06/07/17 10:11 10 UNITS Warfarin Sodium (Coumadin Tab) 3 mg DAILY@16 PO 06/07/17 16:00 07/07/17 15:59 Review of Systems Denies complaints related to 10 point organ system review. Physical Exam Height & Weight: Height 5 feet, 5.00 inches. Weight 81.800 (Kilograms) 180 (Pounds) Last Vital Signs Documentation Date Time Temp Pulse Resp B/P (MAP) Pulse Ox O2 Delivery O2 Flow Rate FiO2 06/07/17 08:25 81 06/07/17 08:00 100 Room Air 06/07/17 07:02 36.6 18 106/70 (82) 06/05/17 09:20 2.0 Exam: GENERAL: This is a 61 y/o white female that appears her stated age. Speech and cognition is intact. Patient is laying in the hospital bed, tearful, in moderate pain. HEAD: Normocephalic; atraumatic. EYES: Pupils are round, equal, and reactive to light; EOM intact. ENT: No external ear discharge or lesions. No rhinorrhea or epistaxis. No mucosal lesions. CHEST: Regular chest respiration and excursion. ABDOMEN: Active bowel sounds throughout; exquisite tenderness of the LUQ. Mild guarding. No peritoneal signs. No CVA tenderness bilaterally. EXTREMITIES: Using all extremities appropriately. BACK: No midline or facet tenderness. No SI joint tenderness. No myofascial tenderness. NEURO: CN II-XII grossly intact with no focal deficits noted. SKIN: No lesions, erythema, or rashes noted. Laboratory Laboratory Results (Last CBC): 06/07/17 06:41 Red Blood Count 4.83, Mean Corpuscular Volume 87.2, Mean Corpuscular Hemoglobin 29.6, Mean Corpuscular Hemoglobin Concent 34.0, Mean Platelet Volume 10.5 H, Neutrophils (%) (Auto) 68.5, Lymphocytes (%) (Auto) 17.3, Monocytes (%) (Auto) 12.9, Eosinophils (%) (Auto) 0.7, Basophils (%) (Auto) 0.5, Neutrophils # (Auto ) 5.78, Lymphocytes # (Auto) 1.46, Monocytes # (Auto) 1.09 H, Eosinophils # ( Auto) 0.06, Basophils # (Auto) 0.[address] Findings ABDOMEN AND PELVIS CT WITHOUT CONTRAST CT DOSE: 669.94 mGy.cm HISTORY: Acute bilateral flank pain eval ureteral stone, pancreatitis, diverticulitis TECHNIQUE: Multiaxial CT images of the abdomen and pelvis were performed without contrast. A dose lowering technique was utilized adhering to the principles of ALARA. COMPARISON STUDY: CT abdomen and pelvis 02/18/2016. FINDINGS: Subsegmental groundglass opacities of the inferior segment lingula favor atelectasis. There is no pneumatosis or pneumoperitoneum identified. Imaged inferior cardiac chambers are the upper limits of normal with small pericardial effusion. Coronary arterial disease is noted. Prior cholecystectomy. Fatty infiltration of the liver. Spleen, and right adrenal gland are unremarkable. Calcifications associated with the left adrenal gland suggest prior hemorrhage or infection. Nodular thickening of the left adrenal gland redemonstrated. Study is limited secondary to patient motion. There is interstitial and mild peripancreatic inflammatory stranding adjacent to the distal pancreatic body and pancreatic tail without drainable fluid collection identified. Scattered pancreatic calcifications are also noted suggesting sequela of chronic pancreatitis. No drainable fluid collections are identified. Bilateral nephrolithiasis with 6 mm nonobstructing calculus of the inferior pole left kidney. No ureteral calculi or obstructive uropathy. Large cyst of the medial inferior pole right kidney measures up to 7.1 x 6.6 cm. The bladder is partially collapsed. Prior hysterectomy. No adnexal mass lesions identified. Moderate atherosclerosis of the aorta without aneurysm. No bulky adenopathy identified. There is no bowel obstruction or focal bowel wall thickening identified. Postsurgical changes are noted within the distal stomach, small bowel and rectum. Small fat filled left lower lateral abdominal wall incisional hernias noted, diastases 1.6 cm. Soft tissues are unremarkable. Bones appear intact. Intervertebral disc space narrowing is seen at L4-L5 and L5-S1. IMPRESSION: 1. Mild interstitial and peripancreatic inflammatory stranding with trace free fluid of the distal pancreatic body and pancreatic tail suggests acute pancreatitis without drainable fluid collection. Correlate with lipase level. Additionally, there is evidence of chronic pancreatitis. 2. Bilateral nephrolithiasis without ureteral calculi or obstructive uropathy. 3. Hepatic steatosis. 4. Prior cholecystectomy and hysterectomy. 5. Small pericardial effusion. Electronically signed by: Michel Garcia M.D. 06/04/2017 7:08 PM Dictated Date/Time: 06/04/2017 7:00 PM Assessment 1. Pancreatitis 2. CAD 3. Atrial fibrillation 4. Chronically anticoagulated on Coumadin 5. Diabetes Mellitus Recommendations 1. Plan for a Celiac Plexus block to be performed in the hospital on Monday. Continue to hold Coumadin. She will need to be NPO after midline. The patient has experienced significant pain relief from the previous Celiac plexus block. Risks and benefits were reviewed with the patient. Procedure was thoroughly explained to the patient and she is understanding. She would like to proceed with the procedure. 2. Continue Dilaudid IV for pain relief.
[2017-06-07 14:11] VITALS: BP 128/75; PULSE 82; TEMP 37.1; O2SAT 91
[2017-06-07] MEDS ORDERED: WARFARIN SOD 3 MG TAB PO SCH (16:00)
[2017-06-07] MEDS: CEFTRIAXONE SOD INJ 1 GM in DEXTROSE 5% ADD-VANTAGE 50ML 50 ML IV SCH (17:40)
[2017-06-07] MEDS ORDERED: HYDROmorphone INJ 1 MG/ML SYR IV STA (18:08)
[2017-06-07] MEDS: PROMETHAZINE HCL INJ 25 MG in SODIUM CHLORIDE 0.9% 50ML 50 ML IV PRN (21:12)
[2017-06-07] MEDS: TRAZODONE HCL 50 MG TAB PO SCH (21:12)
[2017-06-07] MEDS: HYDROmorphone INJ 1 MG/ML SYR IV PRN (21:17)
[2017-06-07] MEDS: HEPARIN SOD 5000 UNIT/0.5 ML CARP SQ SCH (21:18)
[2017-06-08] VITALS (7 sets, daily range): BP systolic 114–136; BP diastolic 65–79; PULSE 72–103; TEMP 36.7–37.2; O2SAT 90–100
[2017-06-08] MEDS: INSULIN ASPART 100 UNITS/ML 3 ML PEN SC SCH ×5 (00:21→21:00)
[2017-06-08] MEDS: HYDROmorphone INJ 1 MG/ML SYR IV PRN ×6 (01:19→13:16)
[2017-06-08] MEDS: ONDANSETRON INJ 2 MG/ML 2 ML VIAL IV PRN ×2 (01:23→05:42)
[2017-06-08] MEDS: LACTATED RINGER'S 1000ML 1,000 ML IV SCH ×3 (03:29→17:58)
[2017-06-08] MEDS: SUCRALFATE 1 GM TAB PO SCH ×4 (05:43→20:52)
[2017-06-08] MEDS ORDERED: NURSING VERBAL MED ORDER ONE ×3 (07:45→17:00)
[2017-06-08] MEDS: METOPROLOL SUCC 25MG EXT REL TAB PO SCH ×2 (07:47→21:00)
[2017-06-08] MEDS: DILTIAZEM HCL 120 MG CAPCR PO SCH ×2 (07:47→20:58)
[2017-06-08] MEDS: PANTOprazole SOD 40 MG TAB PO SCH (07:47)
[2017-06-08] MEDS: DOCUSATE SODIUM 100 MG CAP PO SCH ×2 (07:48→20:58)
[2017-06-08] MEDS: DIGOXIN 0.125 MG TAB PO SCH (07:48)
[2017-06-08] MEDS: GABAPENTIN 100 MG CAP PO SCH ×3 (07:48→20:57)
[2017-06-08] MEDS: MAGNESIUM OXIDE 400 MG TAB PO SCH ×2 (07:48→20:59)
[2017-06-08] MEDS: ALLOPURINOL 100 MG TAB PO SCH (07:48)
[2017-06-08 07:58] LABS: CALCIUM 10.4 mg/dl (8.5-10.1); CREATININE 0.43 mg/dl (0.60-1.20); POTASSIUM 3.7 mmol/L (3.5-5.1)
[2017-06-08] MEDS: HEPARIN SOD 5000 UNIT/0.5 ML CARP SQ SCH (08:15)
[2017-06-08] MEDS: INSULIN GLARGINE SOLOSTAR 100 UNITS/ML 3 ML PEN SC SCH (08:15)
--- NOTE | 2017-06-08 09:20 | Anesthesiology Progress Note ---
Anesthesia Progress Note Date of Service Jun 08, 2017. Progress Notes The patient is scheduled for a diagnostic celiac plexus block on 06/09/17. The patient is a 61F with h/o afib, HTN, CAD, chronic pancreatitis, smoker, TIA x 3 , gout, DM, h/o pancreatic ca, anxiety, obesity. The patient had a successful celiac plexus block in the past under sedation. The patient's labs and EKG were reviewed. The patient is an acceptable candidate to receive anesthesia tomorrow.
[2017-06-08] MEDS ORDERED: MAGNESIUM CITRATE 296 ML/BTL PO ONE ×2 (10:25→10:45)
[2017-06-08] MEDS ORDERED: POLYETHYLENE (MIRALAX) 17 GM PACK ONE (11:35)
[2017-06-08] MEDS ORDERED: POLYETHYLENE (MIRALAX) 17 GM PACK PO ONE (11:45)
--- NOTE | 2017-06-08 11:56 | Gastroenterology Progress Note ---
Progress Note Date of Service: Jun 08, 2017 Subjective Pt evaluation today including: conversation w/ patient, physical exam, chart review, lab review, review of inpatient medication list Pt c/o abd pain, also said hasn't had BM, though passing flatus. Tolerated CL diet well. Review of Systems Constitutional: No fever, No chills Respiratory: No cough Cardiac: No chest pain Abdomen: + pain, No nausea, No vomiting Medications Current Inpatient Medications Medications (Trade) Dose Ordered Sig/August Route Start Time Stop Time Status Last Admin Dose Admin Albuterol (Ventolin Hfa Inhaler) 2 puffs QID PRN INH 06/04/17 21:00 07/04/17 20:59 Allopurinol (Zyloprim Tab) 100 mg DAILY PO 06/05/17 09:00 07/05/17 08:59 06/08/17 07:48 100 MG Digoxin (Lanoxin Tab) 0.125 mg QAM PO 06/05/17 09:00 07/05/17 08:59 06/08/17 07:48 0.125 MG Diltiazem HCl (Cardizem Cd Cap) 120 mg BID PO 06/04/17 21:00 07/04/17 20:59 06/08/17 07:47 120 MG Docusate Sodium (coLACE CAP) 100 mg BID PO 06/04/17 21:00 07/04/17 20:59 06/08/17 07:48 100 MG Gabapentin (Neurontin Cap) 100 mg TID PO 06/04/17 21:00 07/04/17 20:59 06/08/17 07:48 100 MG Magnesium Oxide (Mag-Ox Tab) 400 mg BID PO 06/04/17 21:00 07/04/17 20:59 06/08/17 07:48 400 MG Metoprolol Succinate (Toprol Xl Tab) 25 mg BID PO 06/04/17 21:00 07/04/17 20:59 06/08/17 07:47 25 MG Nicotine (Nicoderm Cq 7 Mg Patch) 1 patch DAILY PRN TD 06/04/17 20:00 07/04/17 19:59 06/05/17 01:24 1 PATCH Pantoprazole Sodium (Protonix Tab) 40 mg DAILY PO 06/05/17 09:00 07/05/17 08:59 06/08/17 07:47 40 MG Sucralfate (Carafate Tab) 1 gm ACHS PO 06/04/17 21:00 07/04/17 20:59 06/08/17 10:54 1 GM Trazodone HCl (Desyrel Tab) 150 mg HS PO 06/04/17 21:00 07/04/17 20:59 06/07/17 21:12 150 MG Miscellaneous Information (Order Awaiting Action) 1 ea QS N/A 06/05/17 00:00 07/05/17 00:00 Amylase/Lipase/ Protease (Pancreaze (Lipase 10,500U) Cap) 2 cap TIDM PO 06/05/17 08:00 07/05/17 07:59 Future Hold Ceftriaxone Sodium 1 gm/ Dextrose 50 ml @ 100 mls/hr Q24H IV 06/05/17 18:00 06/08/17 18:29 06/07/17 17:40 100 MLS/HR Glucagon (Glucagon Inj) 1 mg UD PRN SQ 06/04/17 19:15 07/04/17 19:14 Glucose (Glucose 40% Gel) 15-30 GRAMS 15 GRAMS... UD PRN PO 06/04/17 19:15 07/04/17 19:14 Glucose (Glucose Chew Tab) 4-8 Tablets 4 Tabl... UD PRN PO 06/04/17 19:15 07/04/17 19:14 Ondansetron HCl (Zofran Inj) 4 mg Q4 PRN IV 06/05/17 08:15 07/04/17 20:29 06/08/17 05:42 4 MG Promethazine HCl 25 mg/Sodium Chloride 51 ml @ 204 mls/hr Q6H PRN IV 06/05/17 08:15 07/05/17 08:14 06/07/17 21:12 204 MLS/HR Al Hydrox/Mg Hydrox/Simethicone (Maalox Max Susp) 30 ml Q6H PRN PO 06/05/17 11:15 07/05/17 11:14 06/06/17 23:39 30 ML Diphenhydramine HCl (Benadryl Cap) 50 mg DAILY@1730 PRN PO 06/05/17 17:30 07/05/17 17:29 06/07/17 17:11 50 MG Prochlorperazine Edisylate 10 mg/ Syringe 10 ml @ 5 mls/min Q8H PRN IV 06/06/17 10:15 07/06/17 10:14 Bisacodyl (Dulcolax Supp) 10 mg DAILY PRN GA 06/06/17 10:15 07/06/17 10:14 06/08/17 07:50 10 MG Lactated Ringer's 1,000 ml @ 150 mls/hr Q6H40M IV 06/06/17 11:45 07/06/17 11:44 06/08/17 10:51 150 MLS/HR Insulin Glargine (Lantus Solostar Pen) 10 units DAILY SC 06/07/17 10:00 07/05/17 08:59 06/08/17 08:15 10 UNITS Warfarin Sodium (Coumadin Tab) 3 mg DAILY@16 PO 06/07/17 16:00 07/07/17 15:59 Future Hold Heparin Sodium (Porcine) (Heparin Sq 5000 Unit/0.5ml) 5,000 unit Q12 SQ 06/07/17 21:00 06/08/17 21:00 Future Hold 06/08/17 08:15 5,000 UNIT Hydromorphone HCl (Dilaudid Inj) 1 mg Q2H PRN IV 06/07/17 18:15 06/18/17 21:14 06/08/17 11:36 1 MG Insulin Aspart (novoLOG ASPART) SLIDING SCALE If C... ACHS SC 06/08/17 08:00 07/08/17 07:59 06/08/17 08:14 2 UNITS Objective Vital Signs Date Time Temp Pulse Resp B/P (MAP) Pulse Ox O2 Delivery O2 Flow Rate FiO2 06/08/17 08:00 100 Room Air 06/08/17 07:48 81 06/08/17 07:40 36.8 81 18 132/77 (95) 90 Room Air 06/08/17 00:26 37.2 103 20 132/79 (96) 92 Room Air 06/08/17 00:00 Room Air 06/07/17 16:00 Room Air 06/07/17 14:11 37.1 82 18 128/75 (92) 91 Physical Exam General Appearance: WD/WN, + mild distress (c.o abd pain ) Eyes: normal inspection, PERRL, EOMI Neck: supple, no JVD, trachea midline Respiratory/Chest: normal breath sounds, no respiratory distress, no accessory muscle use Cardiovascular: regular rate, rhythm, no gallop, no murmur Abdomen: soft, + abnormal bowel sounds (hypoactive ), + tenderness (mid upper area ) Extremities: normal inspection, no pedal edema, no calf tenderness Neurologic/Psych: alert, normal mood/affect, oriented x 3 Skin: normal color, no jaundice, no rash Laboratory Results Last 24 Hours Test 06/07/17 16:37 06/07/17 19:57 06/08/17 00:13 06/08/17 07:00 Bedside Glucose 128 mg/dl 177 mg/dl 167 mg/dl Sodium Level 138 mmol/L Potassium Level 3.7 mmol/L Chloride Level 103 mmol/L Carbon Dioxide Level 28 mmol/L Anion Gap 6.0 mmol/L Blood Urea Nitrogen 7 mg/dl Creatinine 0.43 mg/dl Est Creatinine Clear Calc Drug Dose 143.3 ml/min Estimated GFR () 126.3 Estimated GFR (Non- 109.0 BUN/Creatinine Ratio 15.2 Random Glucose 151 mg/dl Calcium Level 10.4 mg/dl Test 06/08/17 07:21 06/08/17 11:28 Bedside Glucose 152 mg/dl 185 mg/dl Assessment and Plan Patient is a 61 year old female with hx of pancreas ca s/p Whipple in 2013, currently admitted for n/v, abd pain, labs and CT imaging consistent with pancreatitis. She does have chronic pancreatitis and abd pain, managed by Dr. Claude Murguia in [facility]. Persistent abd pain, w/o BMs yet but passing flatus. No N/V, tolerating CL diet. Plans - CL diet; advance slowely as tolerated. - Add Miralax 17g one today. Repeat Relistor tomorrow if no BM. - LR @ 150ml/hr - Consult Pain Management for possible repeat celiac plexus injection for abd pain -> plan for Monday - Symptomatic management otherwise. - Outpt f/u with Dr. Claude Murguia (GI) on DC
--- NOTE | 2017-06-08 13:20 | Hospitalist Progress Note ---
Hospitalist Progress Note Date of Service Jun 08, 2017. Subjective Pt evaluation today including: conversation w/ patient, physical exam, lab review, review of inpatient medication list Voiding: no voiding problems Patient resting in bed. +Abdominal pain- due for IV Dilaudid. Pain is controlled w/ increase in Dilaudid dosing but requesting every hour. transition to OUTPATIENT PHYSICAL THERAPIST ASSISTANT pump. Tolerating clear liquid diet. Did have small BM this AM. GI added MiraLAX to regimen. Patient denies any fever, chills, sweats, lightheadedness, dizziness, vision changes, CP, palpitations, edema, SOB, wheezing, cough, nausea, vomiting, diarrhea, urinary symptoms, melena, numbness/tingling, weakness, muscle/joint pain, anxiety/depression, active bleeding, or new skin discoloration/changes. Medications Current Inpatient Medications Medications (Trade) Dose Ordered Sig/August Route Start Time Stop Time Status Last Admin Dose Admin Albuterol (Ventolin Hfa Inhaler) 2 puffs QID PRN INH 06/04/17 21:00 07/04/17 20:59 Allopurinol (Zyloprim Tab) 100 mg DAILY PO 06/05/17 09:00 07/05/17 08:59 06/08/17 07:48 100 MG Digoxin (Lanoxin Tab) 0.125 mg QAM PO 06/05/17 09:00 07/05/17 08:59 06/08/17 07:48 0.125 MG Diltiazem HCl (Cardizem Cd Cap) 120 mg BID PO 06/04/17 21:00 07/04/17 20:59 06/08/17 07:47 120 MG Docusate Sodium (coLACE CAP) 100 mg BID PO 06/04/17 21:00 07/04/17 20:59 06/08/17 07:48 100 MG Gabapentin (Neurontin Cap) 100 mg TID PO 06/04/17 21:00 07/04/17 20:59 06/08/17 07:48 100 MG Magnesium Oxide (Mag-Ox Tab) 400 mg BID PO 06/04/17 21:00 07/04/17 20:59 06/08/17 07:48 400 MG Metoprolol Succinate (Toprol Xl Tab) 25 mg BID PO 06/04/17 21:00 07/04/17 20:59 06/08/17 07:47 25 MG Nicotine (Nicoderm Cq 7 Mg Patch) 1 patch DAILY PRN TD 06/04/17 20:00 07/04/17 19:59 06/05/17 01:24 1 PATCH Pantoprazole Sodium (Protonix Tab) 40 mg DAILY PO 06/05/17 09:00 07/05/17 08:59 06/08/17 07:47 40 MG Sucralfate (Carafate Tab) 1 gm ACHS PO 06/04/17 21:00 07/04/17 20:59 06/08/17 10:54 1 GM Trazodone HCl (Desyrel Tab) 150 mg HS PO 06/04/17 21:00 07/04/17 20:59 06/07/17 21:12 150 MG Miscellaneous Information (Order Awaiting Action) 1 ea QS N/A 06/05/17 00:00 07/05/17 00:00 Amylase/Lipase/ Protease (Pancreaze (Lipase 10,500U) Cap) 2 cap TIDM PO 06/05/17 08:00 07/05/17 07:59 Future Hold Ceftriaxone Sodium 1 gm/ Dextrose 50 ml @ 100 mls/hr Q24H IV 06/05/17 18:00 06/08/17 18:29 06/07/17 17:40 100 MLS/HR Glucagon (Glucagon Inj) 1 mg UD PRN SQ 06/04/17 19:15 07/04/17 19:14 Glucose (Glucose 40% Gel) 15-30 GRAMS 15 GRAMS... UD PRN PO 06/04/17 19:15 07/04/17 19:14 Glucose (Glucose Chew Tab) 4-8 Tablets 4 Tabl... UD PRN PO 06/04/17 19:15 07/04/17 19:14 Ondansetron HCl (Zofran Inj) 4 mg Q4 PRN IV 06/05/17 08:15 07/04/17 20:29 06/08/17 05:42 4 MG Promethazine HCl 25 mg/Sodium Chloride 51 ml @ 204 mls/hr Q6H PRN IV 06/05/17 08:15 07/05/17 08:14 06/07/17 21:12 204 MLS/HR Al Hydrox/Mg Hydrox/Simethicone (Maalox Max Susp) 30 ml Q6H PRN PO 06/05/17 11:15 07/05/17 11:14 06/06/17 23:39 30 ML Diphenhydramine HCl (Benadryl Cap) 50 mg DAILY@1730 PRN PO 06/05/17 17:30 07/05/17 17:29 06/07/17 17:11 50 MG Prochlorperazine Edisylate 10 mg/ Syringe 10 ml @ 5 mls/min Q8H PRN IV 06/06/17 10:15 07/06/17 10:14 Bisacodyl (Dulcolax Supp) [address] 06/06/17 10:15 07/06/17 10:14 06/08/17 07:50 10 MG Lactated Ringer's 1,000 ml @ 150 mls/hr Q6H40M IV 06/06/17 11:45 07/06/17 11:44 06/08/17 10:51 150 MLS/HR Insulin Glargine (Lantus Solostar Pen) 10 units DAILY SC 06/07/17 10:00 07/05/17 08:59 06/08/17 08:15 10 UNITS Warfarin Sodium (Coumadin Tab) 3 mg DAILY@16 PO 06/07/17 16:00 07/07/17 15:59 Future Hold Heparin Sodium (Porcine) (Heparin Sq 5000 Unit/0.5ml) 5,000 unit Q12 SQ 06/07/17 21:00 06/08/17 21:00 Future Hold 06/08/17 08:15 5,000 UNIT Hydromorphone HCl (Dilaudid Inj) 1 mg Q2H PRN IV 06/07/17 18:15 06/18/17 21:14 06/08/17 11:36 1 MG Insulin Aspart (novoLOG ASPART) SLIDING SCALE If C... ACHS SC 06/08/17 08:00 07/08/17 07:59 06/08/17 12:22 5 UNITS Objective Vital Signs Date Time Temp Pulse Resp B/P (MAP) Pulse Ox O2 Delivery O2 Flow Rate FiO2 06/08/17 08:00 100 Room Air 06/08/17 07:48 81 06/08/17 07:40 36.8 81 18 132/77 (95) 90 Room Air 06/08/17 00:26 37.2 103 20 132/79 (96) 92 Room Air 06/08/17 00:00 Room Air 06/07/17 16:00 Room Air 06/07/17 14:11 37.1 82 18 128/75 (92) 91 Physical Exam General Appearance: + mild distress (due to pain ), + obese Eyes: normal inspection, PERRL ENT: hearing grossly normal Neck: supple Respiratory/Chest: lungs clear, no respiratory distress, no accessory muscle use Cardiovascular: + irregularly irregular (rate controlled ) Abdomen: normal bowel sounds, soft, + tenderness (L-sided ttp ) Extremities: no pedal edema, no calf tenderness Neurologic/Psychiatric: alert, normal mood/affect, oriented x 3 Skin: normal color, warm/dry, no rash Laboratory Results Last 24 Hours Test 06/07/17 16:37 06/07/17 19:57 06/08/17 00:13 06/08/17 07:00 Bedside Glucose 128 mg/dl 177 mg/dl 167 mg/dl Sodium Level 138 mmol/L Potassium Level 3.7 mmol/L Chloride Level 103 mmol/L Carbon Dioxide Level 28 mmol/L Anion Gap 6.0 mmol/L Blood Urea Nitrogen 7 mg/dl Creatinine 0.43 mg/dl Est Creatinine Clear Calc Drug Dose 143.3 ml/min Estimated GFR () 126.3 Estimated GFR (Non- 109.0 BUN/Creatinine Ratio 15.2 Random Glucose 151 mg/dl Calcium Level 10.4 mg/dl Test 06/08/17 07:21 06/08/17 11:28 Bedside Glucose 152 mg/dl 185 mg/dl Assessment and Plan 61 y/o F Hx chronic AF, DM II, CAD, gout, chronic pancreatitis. The pt developed abdominal and back pain, accompanied by nausea and a few episodes of vomiting earlier in the day. She states that her symptoms are consistent with bouts of pancreatitis she has had in the past. She denies CP, SOB, diarrhea or fevers. A CT abdomen is consistent with acute pancreatitis. Lipase is mildly elevated, a UA is (+). Acute pancreatitis , h/o recurrent pancreatitis, h/o pancreatic cancer s/p Whipple's in 2013- follows w/ Dr. Murguia: - Tolerating clear liquid diet - LR @ 150 ml/hr - Compazine, Phenergan, Zofran PRN for nausea - IV Dilaudid 1 mg q2hr PRN for pain management- transition to OUTPATIENT PHYSICAL THERAPIST ASSISTANT pump for better pain control - Lipase 557--> 497 - GI consulted, appreciate recommendations- consult pain management for nerve block - Pain management consulted, appreciate recommendations- planning for celiac plexus injection Monday Constipation: - Dulcolax suppository PRN, add MiraLAX daily- small BM today, continue to follow - Relistor SQ for constipation x1 on 06/07- may give additional dose tomorrow if needed A. fib- rate controlled, CAD- STABLE: - Continue Metoprolol, Digoxin, Cardizem - Resume lipid lower agent once tolerating PO - Coumadin was held for pacemaker implantation scheduled for 06/09- pt cancelled surgery- will resume Coumadin 3 mg HS once pain management procedure E. coli UTI- pansensitive: Will keep on IV Rocephin until tolerating PO intake- treatment started on 06/04 T2DM: - Decreased Lantus 20 u daily to 10 u daily until tolerating full diet - BSG ACHS and ISS Gout: Continue Allopurinol Tobacco Use: - Nicotine pain - Smoking cessation counselling GERD: Protonix + Carafate DVT prophylaxis: Heparin SQ BID- hold prior to pain management procedure Code status: LEVEL I, FULL Disposition: Patient from home, lives with her - no CM needs anticipated
[2017-06-08] MEDS ORDERED: SODIUM CHLORIDE 0.9% 1000ML 1,000 ML IV SCH (14:10)
[2017-06-08] MEDS ORDERED: NALOXONE HCL 0.4 MG/1 ML VIAL/CARP IV PRN (14:15)
[2017-06-08] MEDS ORDERED: HYDROmorphone HCL 0.5MG/ML 50 ML CASSETTE IV PRN (14:15)
[2017-06-08] MEDS ORDERED: HYDROmorphone INJ 1 MG/ML SYR IV STA ×2 (14:33→16:56)
--- NOTE | 2017-06-08 15:15 | Pain Management Progress Note ---
Pain Management Progress Note Date of Service Jun 08, 2017. Subjective 61 y/o white female that is known to the [facility] for pancreatitis with acute flare. She continues to note sharp stabbing pain in the left upper abdomen that shoots into the back. She notes that pain is currently between 8 and 10 out of 10. She reports continued constipation despite Relistor yesterday. Patient has previously received a celiac plexus block on 01/18/17 which did provide pain relief until last week. She is chronically on Coumadin and was planning to have a pacemaker placed on monday, Coumadin has been held. The procedure has been cancelled as she is in too much pain and feels weak. Objective Vital Signs: Last Vital Signs Documentation Date Time Temp Pulse Resp B/P (MAP) Pulse Ox O2 Delivery O2 Flow Rate FiO2 06/08/17 15:07 36.7 73 18 114/65 (81) 94 Room Air 06/05/17 09:20 2.0 Physical Exam: GENERAL: 61 y/o white female that appears her stated age. Speech and cognition is intact. Patient is laying in the hospital bed sleeping in no acute distress HEAD: Normocephalic; atraumatic. EYES: Pupils are round, equal, and reactive to light; EOM intact. ENT: No external ear discharge or lesions. No rhinorrhea or epistaxis. No mucosal lesions. CHEST: Regular chest respiration and excursion. ABDOMEN: Active bowel sounds throughout; exquisite tenderness of the LUQ. Mild guarding. No peritoneal signs. No CVA tenderness bilaterally. Positive distention EXTREMITIES: Using all extremities appropriately. BACK: No midline or facet tenderness. No SI joint tenderness. No myofascial tenderness. NEURO: CN II-XII grossly intact with no focal deficits noted. SKIN: No lesions, erythema, or rashes noted. Gait was not observed Laboratory Laboratory Findings 06/07/17 06:41 Red Blood Count 4.83, Mean Corpuscular Volume 87.2, Mean Corpuscular Hemoglobin 29.6, Mean Corpuscular Hemoglobin Concent 34.0, Mean Platelet Volume 10.5 H, Neutrophils (%) (Auto) 68.5, Lymphocytes (%) (Auto) 17.3, Monocytes (%) (Auto) 12.9, Eosinophils (%) (Auto) 0.7, Basophils (%) (Auto) 0.5, Neutrophils # (Auto ) 5.78, Lymphocytes # (Auto) 1.46, Monocytes # (Auto) 1.09 H, Eosinophils # ( Auto) 0.06, Basophils # (Auto) 0.04 Assessment 1. Acute pancreatitis-pain previously improved with diagnostic celiac plexus block 2. CAD 3. Atrial fibrillation 4. Chronically anticoagulated on Coumadin 5. Diabetes Mellitus 6. Opioid-induced constipation Recommendations 1. Celiac plexus block to be performed tomorrow morning. 2. Will hold subcutaneous heparin and Coumadin and make n.p.o. after midnight 3. Mag citrate added for bowel regimen today. 4. Continue other meds as current
[2017-06-08] MEDS ORDERED: HYDROmorphone INJ 1 MG/ML SYR ONE (16:58)
[2017-06-08] MEDS: CEFTRIAXONE SOD INJ 1 GM in DEXTROSE 5% ADD-VANTAGE 50ML 50 ML IV SCH (18:00)
[2017-06-08] MEDS: TRAZODONE HCL 50 MG TAB PO SCH (20:59)
[2017-06-09] VITALS (8 sets, daily range): BP systolic 106–135; BP diastolic 68–82; PULSE 75–99; TEMP 36.5–37.1; O2SAT 85–94
[2017-06-09] MEDS: LACTATED RINGER'S 1000ML 1,000 ML IV SCH ×3 (00:25→20:25)
[2017-06-09] MEDS ORDERED: CEFAZOLIN SOD 2000MG/15 ML IV PUSH IV SCH (06:00)
[2017-06-09] MEDS ORDERED: DEXAMETHASONE IV ONE (06:30)
[2017-06-09] MEDS: SUCRALFATE 1 GM TAB PO SCH ×4 (06:30→21:35)
[2017-06-09] MEDS ORDERED: DEXTROSE 5% IV ONE (06:30)
[2017-06-09] MEDS: INSULIN ASPART 100 UNITS/ML 3 ML PEN SC SCH ×4 (06:30→21:51)
[2017-06-09] MEDS ORDERED: ROPIVACAINE 0.5% 5 MG/ML 30 ML VIAL ONE (06:55)
[2017-06-09] MEDS ORDERED: DEXAMETHASONE SOD INJ 4 MG/ML VIAL ONE (06:57)
[2017-06-09] MEDS ORDERED: PROPOFOL IV EMULSION 10 MG/ML 20 ML VIAL IV ONE (06:57)
[2017-06-09] MEDS ORDERED: GLYCOPYRROLATE INJ 0.2 MG/ML VIAL ONE (06:57)
[2017-06-09] MEDS ORDERED: MIDAZOLAM HCL 1 MG/ML 2ML VIAL ONE ×2 (06:57→08:04)
[2017-06-09] MEDS ORDERED: ONDANSETRON INJ 2 MG/ML 2 ML VIAL ONE (06:57)
[2017-06-09] MEDS ORDERED: NEOSTIGMINE METHYLSULFATE 5 MG/5 ML SYR ONE (06:57)
[2017-06-09] MEDS ORDERED: LIDOCAINE HCL 2% 2 ML VIAL (20MG/ML) ONE (06:57)
[2017-06-09] MEDS ORDERED: FENTANYL CITRATE INJ 50 MCG/1 ML 2 ML VIAL ONE (06:57)
[2017-06-09] MEDS ORDERED: LIDOCAINE HCL 1% 20 ML VIAL ONE (06:58)
[2017-06-09] MEDS ORDERED: EpINEphrine INJ 1MG/ML AMP 1 MG/ML AMP ONE (06:58)
[2017-06-09] MEDS ORDERED: FENTANYL CITRATE INJ 50 MCG/1 ML 2 ML VIAL IV PRN (07:30)
[2017-06-09] MEDS ORDERED: HYDROmorphone INJ 1 MG/ML SYR IV PRN (07:30)
[2017-06-09] MEDS ORDERED: ATROPINE SULFATE 0.1 MG/ML 5ML SYR IV PRN (07:30)
[2017-06-09] MEDS ORDERED: ONDANSETRON INJ 2 MG/ML 2 ML VIAL IV PRN (07:30)
[2017-06-09] MEDS ORDERED: EpHEDrine SULFATE INJ 50 MG/ML AMP IV PRN (07:30)
--- NOTE | 2017-06-09 07:33 | History & Physical Bridge Note ---
H&P Re-Evaluation Bridge Note: I have examined the patient, reviewed the History & Physical and in the interval since the performance of the History & Physical I have noted the following changes of clinical significance: No changes noted
[2017-06-09] MEDS ORDERED: CEFAZOLIN SOD 1 GM VIAL ONE (07:49)
[2017-06-09] MEDS ORDERED: ROPIVACAINE 0.5% 5 MG/ML 30 ML VIAL INSTIL ONE (08:09)
[2017-06-09] MEDS ORDERED: SODIUM CHLORIDE 0.9% INJ 10 ML VIAL ONE ×2 (08:12→08:14)
--- NOTE | 2017-06-09 08:25 | Operative Note-Pain Management ---
Pain Clinic Operative Note CELIAC PLEXUS BLOCK Diagnosis: pancreatitis with intractable pain Side injected: right Surgeon: Dr. Chelsey Lopez Anesthesia: local sedation Material forwarded to lab: none Complications noted: none Prior to starting, the Patients diagnosis and the procedure were reviewed with the patient in detail. Possible risks, complications and alternative therapies were also reviewed. Patients questions were answered. Informed consent was obtained. Allergies and medication list was reviewed. A peripheral IV was started and one liter of normal saline was administered. Ancef was given IV prior to the start of the injection. IV sedation was given per anesthetic record. The patient was brought to the operating room and placed in prone position on the table. Immediately prior to starting the procedure, a time out was conducted with the staff and the patient where the Patient was identified , proposed procedure was verified, consent was reviewed and the proper site for the planned procedure was identified. Fluoroscopy was utilized in performing the procedure to assist in placement of the needle, to evaluate the final position on the needle prior to injection and to avoid intravascular injection. The thoracolumbar spine area was prepped with chloraprep. Sterile drapes were applied. Next, a true AP view of the L1 vertebral body was identified. The C- arm was then oblique to the appropriate side approximately 35 degrees so that the superior lateral margin of the vertebral body was congruent with the transverse process. 1% lidocaine, 4 cc, was infiltrated in the skin and subcutaneous tissues using a 27 gauge needle. Then a 7 inch Quincke spinal needle was introduced at the superior lateral margin of the L1 vertebral body and advanced until contact was made with the vertebral body. The needle was the rotated and walked off laterally from the vertebral body. Next, a lateral Xray was taken and the needle was advanced until it lied just anterior to the L1 vertebral body. This was confirmed in AP view. A 6 inch micro bore tubing was attached to the needle. No contrast was utilized secondary to allergy. No heme or paresthesias were noted. No CSF was noted. Next 15ml of 0.5% Ropivacaine with 1:200,000 Epinephrine mixed with 10mg of preservative free dexamethasone was injected in 5ml aliquots after negative aspiration for blood or CSF. No complications were noted. There were no signs or symptoms of local anesthetic toxicity. The needle was withdrawn. Adequate hemostasis was noted. A sterile Band-Aid was applied at the injection site. Patient was able to log roll back to the supine position. I accompanied the patient to the recovery room without complications noted. Should the patient have relief with this diagnostic procedure, I will plan for neurolytic block in the future should pain recur. I attest to the content of the Intraoperative Record and any orders documented therein. Any exceptions are noted below.
--- NOTE | 2017-06-09 09:02 | Anesthesiology Progress Note ---
Anesthesia Post Op Note Date & Time Jun 09, 2017 at 09:02 Vital Signs Pain Intensity: 0 Vital Signs Past 12 Hours Date Time Temp Pulse Resp B/P (MAP) Pulse Ox O2 Delivery O2 Flow Rate FiO2 06/09/17 08:48 37.2 81 19 116/69 (81) 94 Nasal Cannula 2 06/09/17 08:41 117/67 06/09/17 08:40 78 22 98 06/09/17 08:40 79 22 06/09/17 08:36 103/63 06/09/17 08:35 85 20 95 06/09/17 08:35 89 20 06/09/17 08:31 110/66 06/09/17 08:30 90 15 93 06/09/17 08:30 89 15 06/09/17 08:26 107/59 06/09/17 08:25 84 17 06/09/17 08:25 89 17 93 06/09/17 08:21 110/62 06/09/17 08:20 78 21 89 06/09/17 08:20 79 21 06/09/17 08:20 37.1 85 18 110/62 (69) 94 Nasal Cannula 6 06/09/17 04:12 36.7 75 18 112/70 (84) 90 Room Air 06/09/17 03:56 36.5 89 18 128/76 (93) 94 Room Air 06/09/17 00:00 94 Room Air 06/08/17 23:50 36.7 91 20 122/77 (92) 94 Room Air Notes Mental Status: alert / awake / arousable, participated in evaluation Nausea / Vomiting: adequately controlled Pain: adequately controlled Airway Patency, RR, SpO2: stable & adequate BP & HR: stable & adequate Hydration State: stable & adequate Anesthetic Complications: no major complications apparent
[2017-06-09] MEDS: DILTIAZEM HCL 120 MG CAPCR PO SCH ×2 (10:27→21:44)
[2017-06-09] MEDS: DIGOXIN 0.125 MG TAB PO SCH (10:27)
[2017-06-09] MEDS: PANTOprazole SOD 40 MG TAB PO SCH (10:28)
[2017-06-09] MEDS: MAGNESIUM OXIDE 400 MG TAB PO SCH ×2 (10:28→21:46)
[2017-06-09] MEDS: METOPROLOL SUCC 25MG EXT REL TAB PO SCH ×2 (10:28→21:47)
[2017-06-09] MEDS: GABAPENTIN 100 MG CAP PO SCH ×3 (10:28→21:46)
[2017-06-09] MEDS: DOCUSATE SODIUM 100 MG CAP PO SCH ×2 (10:29→21:00)
[2017-06-09] MEDS: ALLOPURINOL 100 MG TAB PO SCH (10:29)
[2017-06-09] MEDS: INSULIN GLARGINE SOLOSTAR 100 UNITS/ML 3 ML PEN SC SCH (10:31)
[2017-06-09 10:43] LABS: CALCIUM 10.3 mg/dl (8.5-10.1); CREATININE 0.45 mg/dl (0.60-1.20); POTASSIUM 3.7 mmol/L (3.5-5.1)
--- NOTE | 2017-06-09 11:32 | Hospitalist Progress Note ---
Hospitalist Progress Note Date of Service Jun 09, 2017. Subjective Pt evaluation today including: conversation w/ patient, physical exam, lab review, review of inpatient medication list Voiding: no voiding problems Patient resting in bed. Just returned to room from nerve block. Still drowsy. Pain 0/10. Requesting food. +2 BMs so far today. Patient denies any fever, chills, sweats, lightheadedness, dizziness, vision changes, CP, palpitations, edema, SOB, wheezing, cough, abdominal pain, nausea, vomiting, diarrhea, urinary symptoms, melena, numbness/tingling, weakness, muscle/joint pain, anxiety/depression, active bleeding, or new skin discoloration/changes. Medications Current Inpatient Medications Medications (Trade) Dose Ordered Sig/August Route Start Time Stop Time Status Last Admin Dose Admin Albuterol (Ventolin Hfa Inhaler) 2 puffs QID PRN INH 06/04/17 21:00 07/04/17 20:59 Allopurinol (Zyloprim Tab) 100 mg DAILY PO 06/05/17 09:00 07/05/17 08:59 06/09/17 10:29 100 MG Digoxin (Lanoxin Tab) 0.125 mg QAM PO 06/05/17 09:00 07/05/17 08:59 06/09/17 10:27 0.125 MG Diltiazem HCl (Cardizem Cd Cap) 120 mg BID PO 06/04/17 21:00 07/04/17 20:59 06/09/17 10:27 120 MG Docusate Sodium (coLACE CAP) 100 mg BID PO 06/04/17 21:00 07/04/17 20:59 06/09/17 10:29 100 MG Magnesium Oxide (Mag-Ox Tab) 400 mg BID PO 06/04/17 21:00 07/04/17 20:59 06/09/17 10:28 400 MG Metoprolol Succinate (Toprol Xl Tab) 25 mg BID PO 06/04/17 21:00 07/04/17 20:59 06/09/17 10:28 25 MG Nicotine (Nicoderm Cq 7 Mg Patch) 1 patch DAILY PRN TD 06/04/17 20:00 07/04/17 19:59 06/05/17 01:24 1 PATCH Pantoprazole Sodium (Protonix Tab) 40 mg DAILY PO 06/05/17 09:00 07/05/17 08:59 06/09/17 10:28 40 MG Sucralfate (Carafate Tab) 1 gm ACHS PO 06/04/17 21:00 07/04/17 20:59 06/09/17 11:11 1 GM Trazodone HCl (Desyrel Tab) 150 mg HS PO 06/04/17 21:00 07/04/17 20:59 06/08/17 20:59 150 MG Miscellaneous Information (Order Awaiting Action) 1 ea QS N/A 06/05/17 00:00 07/05/17 00:00 Amylase/Lipase/ Protease (Pancreaze (Lipase 10,500U) Cap) 2 cap TIDM PO 06/05/17 08:00 07/05/17 07:59 Future Hold Glucagon (Glucagon Inj) 1 mg UD PRN SQ 06/04/17 19:15 07/04/17 19:14 Glucose (Glucose 40% Gel) 15-30 GRAMS 15 GRAMS... UD PRN PO 06/04/17 19:15 07/04/17 19:14 Glucose (Glucose Chew Tab) 4-8 Tablets 4 Tabl... UD PRN PO 06/04/17 19:15 07/04/17 19:14 Ondansetron HCl (Zofran Inj) 4 mg Q4 PRN IV 06/05/17 08:15 07/04/17 20:29 06/08/17 05:42 4 MG Promethazine HCl 25 mg/Sodium Chloride 51 ml @ 204 mls/hr Q6H PRN IV 06/05/17 08:15 07/05/17 08:14 06/07/17 21:12 204 MLS/HR Al Hydrox/Mg Hydrox/Simethicone (Maalox Max Susp) 30 ml Q6H PRN PO 06/05/17 11:15 07/05/17 11:14 06/06/17 23:39 30 ML Prochlorperazine Edisylate 10 mg/ Syringe 10 ml @ 5 mls/min Q8H PRN IV 06/06/17 10:15 07/06/17 10:14 Bisacodyl (Dulcolax Supp) 10 mg DAILY PRN [place] 06/06/17 10:15 07/06/17 10:14 06/08/17 07:50 10 MG Lactated Ringer's 1,000 ml @ 75 mls/hr [id number] IV 06/06/17 11:45 07/06/17 11:44 06/09/17 06:45 150 MLS/HR Insulin Glargine (Lantus Solostar Pen) 10 units DAILY SC 06/07/17 10:00 07/05/17 08:59 06/09/17 10:31 10 UNITS Warfarin Sodium (Coumadin Tab) 3 mg DAILY@16 PO 06/07/17 16:00 07/07/17 15:59 Future Hold Insulin Aspart (novoLOG ASPART) SLIDING SCALE If C... ACHS SC 06/08/17 08:00 07/08/17 07:59 06/08/17 18:06 5 UNITS Gabapentin (Neurontin Cap) 200 mg TID PO 06/09/17 09:00 07/04/17 20:59 06/09/17 10:28 200 MG Acetaminophen/ Hydrocodone Bitart ([place] 5/325 Tab) 1 tab Q4H PRN PO 06/09/17 08:30 06/23/17 08:29 Objective Vital Signs Date Time Temp Pulse Resp B/P (MAP) Pulse Ox O2 Delivery O2 Flow Rate FiO2 06/09/17 10:27 83 06/09/17 09:15 36.7 83 16 106/68 (81) 91 Nasal Cannula 2.0 06/09/17 08:48 37.2 81 19 116/69 (81) 94 Nasal Cannula 2 06/09/17 08:41 117/67 06/09/17 08:40 78 22 98 06/09/17 08:40 79 22 06/09/17 08:36 103/63 06/09/17 08:35 85 20 95 06/09/17 08:35 89 20 06/09/17 08:31 110/66 06/09/17 08:30 90 15 93 06/09/17 08:30 89 15 06/09/17 08:26 107/59 06/09/17 08:25 84 17 06/09/17 08:25 89 17 93 06/09/17 08:21 110/62 06/09/17 08:20 78 21 89 06/09/17 08:20 79 21 06/09/17 08:20 37.1 85 18 110/62 (69) 94 Nasal Cannula 6 06/09/17 08:00 92 Room Air 06/09/17 04:12 36.7 75 18 112/70 (84) 90 Room Air 06/09/17 03:56 36.5 89 18 128/76 (93) 94 Room Air 06/09/17 00:00 94 Room Air 06/08/17 23:50 36.7 91 20 122/77 (92) 94 Room Air 06/08/17 20:54 72 136/79 (98) 06/08/17 16:00 94 Room Air 06/08/17 15:07 36.7 73 18 114/65 (81) 94 Room Air Physical Exam General Appearance: no apparent distress, + obese Eyes: normal inspection, PERRL ENT: hearing grossly normal Neck: supple Respiratory/Chest: lungs clear, no respiratory distress, no accessory muscle use Cardiovascular: + irregularly irregular (rate controlled) Abdomen: normal bowel sounds, non tender, soft Extremities: no pedal edema, no calf tenderness Neurologic/Psychiatric: alert, oriented x 3, + pertinent finding (drowsy s/p nerve block ) Skin: normal color, warm/dry, no rash Laboratory Results Last 24 Hours Test 06/08/17 11:28 06/08/17 16:42 06/08/17 21:22 06/09/17 10:03 Bedside Glucose 185 mg/dl 161 mg/dl 106 mg/dl Prothrombin Time 10.6 SECONDS Prothromb Time International Ratio 1.0 Sodium Level 138 mmol/L Potassium Level 3.7 mmol/L Chloride Level 105 mmol/L Carbon Dioxide Level 28 mmol/L Anion Gap 5.0 mmol/L Blood Urea Nitrogen 6 mg/dl Creatinine 0.45 mg/dl Est Creatinine Clear Calc Drug Dose 136.9 ml/min Estimated GFR () 124.5 Estimated GFR (Non- 107.4 BUN/Creatinine Ratio 13.5 Random Glucose 166 mg/dl Calcium Level 10.3 mg/dl Assessment and Plan 61 y/o F Hx chronic AF, DM II, CAD, gout, chronic pancreatitis. The pt developed abdominal and back pain, accompanied by nausea and a few episodes of vomiting earlier in the day. She states that her symptoms are consistent with bouts of pancreatitis she has had in the past. She denies CP, SOB, diarrhea or fevers. A CT abdomen is consistent with acute pancreatitis. Lipase is mildly elevated, a UA is (+). Acute pancreatitis , h/o recurrent pancreatitis, h/o pancreatic cancer s/p Whipple's in 2013- follows w/ Dr. Murguia: - Advance diet as tolerated - LR @ 150 ml/hr- will discontinue once tolerating full diet - Compazine, Phenergan, Zofran PRN for nausea - IV Dilaudid 1 mg q2hr PRN for pain management- transitioned to SENIOR MARKETING MANAGER pump for better pain control- now s/p injection, Gabapentin 200 TID and [place] PRN for pain control - Lipase 557--> 497 - GI consulted, appreciate recommendations- consulted pain management for nerve block - Pain management consulted, appreciate recommendations- s/p celiac plexus injection on 06/09 Constipation- RESOLVED: - Dulcolax suppository PRN, add MiraLAX daily- small BM today, continue to follow - Relistor SQ for constipation x1 on 06/07- may give additional dose if needed A. fib- rate controlled, CAD- STABLE: - Continue Metoprolol, Digoxin, Cardizem - Resume lipid lower agent once tolerating PO - Coumadin was held for pacemaker implantation scheduled for 06/09- pt cancelled surgery- Coumadin 3 mg HS held pending nerve block, will resume tonight E. coli UTI- pansensitive: IV Rocephin x4 days- treatment completed T2DM: - Decreased Lantus 20 u daily to 10 u daily until tolerating full diet- diet advanced today, will resume 20 u tomorrow - BSG ACHS and ISS Gout: Continue Allopurinol Tobacco Use: - Nicotine pain - Smoking cessation counselling GERD: Protonix + Carafate DVT prophylaxis: Coumadin Code status: LEVEL I, FULL Disposition: Patient from home, lives with her - no CM needs anticipated - hopeful discharge in the next 1-2 days
--- NOTE | 2017-06-09 12:44 | Gastroenterology Progress Note ---
Progress Note Date of Service: Jun 09, 2017 Subjective Pt evaluation today including: conversation w/ patient, physical exam, chart review, review of studies, review of inpatient medication list Pt had her celiac plexus block today. [place] much better, no more abd pain, able to tolerate [place] diet, wants solid foods. Review of Systems Constitutional: No fever, No chills Respiratory: No cough, No shortness of breath Cardiac: No chest pain Abdomen: No pain, No nausea, No vomiting Medications Current Inpatient Medications Medications (Trade) Dose Ordered Sig/August Route Start Time Stop Time Status Last Admin Dose Admin Albuterol (Ventolin Hfa Inhaler) 2 puffs QID PRN INH 06/04/17 21:00 07/04/17 20:59 Allopurinol (Zyloprim Tab) 100 mg DAILY PO 06/05/17 09:00 07/05/17 08:59 06/09/17 10:29 100 MG Digoxin (Lanoxin Tab) 0.125 mg QAM PO 06/05/17 09:00 07/05/17 08:59 06/09/17 10:27 0.125 MG Diltiazem HCl (Cardizem Cd Cap) 120 mg BID PO 06/04/17 21:00 07/04/17 20:59 06/09/17 10:27 120 MG Docusate Sodium (coLACE CAP) 100 mg BID PO 06/04/17 21:00 07/04/17 20:59 06/09/17 10:29 100 MG Magnesium Oxide (Mag-Ox Tab) 400 mg BID PO 06/04/17 21:00 07/04/17 20:59 06/09/17 10:28 400 MG Metoprolol Succinate (Toprol Xl Tab) 25 mg BID PO 06/04/17 21:00 07/04/17 20:59 06/09/17 10:28 25 MG Nicotine (Nicoderm Cq 7 Mg Patch) 1 patch DAILY PRN TD 06/04/17 20:00 07/04/17 19:59 06/05/17 01:24 1 PATCH Pantoprazole Sodium (Protonix Tab) 40 mg DAILY PO 06/05/17 09:00 07/05/17 08:59 06/09/17 10:28 40 MG Sucralfate (Carafate Tab) 1 gm ACHS PO 06/04/17 21:00 07/04/17 20:59 06/09/17 11:11 1 GM Trazodone HCl (Desyrel Tab) 150 mg HS PO 06/04/17 21:00 07/04/17 20:59 06/08/17 20:59 150 MG Miscellaneous Information (Order Awaiting Action) 1 ea QS N/A 06/05/17 00:00 07/05/17 00:00 Amylase/Lipase/ Protease (Pancreaze (Lipase 10,500U) Cap) 2 cap TIDM PO 06/05/17 08:00 07/05/17 07:59 Future Hold Glucagon (Glucagon Inj) 1 mg UD PRN SQ 06/04/17 19:15 07/04/17 19:14 Glucose (Glucose 40% Gel) 15-30 GRAMS 15 GRAMS... UD PRN PO 06/04/17 19:15 07/04/17 19:14 Glucose (Glucose Chew Tab) 4-8 Tablets 4 Tabl... UD PRN PO 06/04/17 19:15 07/04/17 19:14 Ondansetron HCl (Zofran Inj) 4 mg Q4 PRN IV 06/05/17 08:15 07/04/17 20:29 06/08/17 05:42 4 MG Promethazine HCl 25 mg/Sodium Chloride 51 ml @ 204 mls/hr Q6H PRN IV 06/05/17 08:15 07/05/17 08:14 06/07/17 21:12 204 MLS/HR Al Hydrox/Mg Hydrox/Simethicone (Maalox Max Susp) 30 ml Q6H PRN PO 06/05/17 11:15 07/05/17 11:14 06/06/17 23:39 30 ML Prochlorperazine Edisylate 10 mg/ Syringe 10 ml @ 5 mls/min Q8H PRN IV 06/06/17 10:15 07/06/17 10:14 Bisacodyl (Dulcolax Supp) 10 mg DAILY PRN AK 06/06/17 10:15 07/06/17 10:14 06/08/17 07:50 10 MG Lactated Ringer's 1,000 ml @ 75 mls/hr [id number] IV 06/06/17 11:45 07/06/17 11:44 06/09/17 06:45 150 MLS/HR Warfarin Sodium (Coumadin Tab) 3 mg DAILY@16 PO 06/07/17 16:00 07/07/17 15:59 Future hold Insulin Aspart (novoLOG ASPART) SLIDING SCALE If C... ACHS SC 06/08/17 08:00 07/08/17 07:59 06/09/17 12:01 12 UNITS Gabapentin (Neurontin Cap) 200 mg TID PO 06/09/17 09:00 07/04/17 20:59 06/09/17 10:28 200 MG Acetaminophen/ Hydrocodone Bitart (Cochrane 5/325 Tab) 1 tab Q4H PRN PO 06/09/17 08:30 06/23/17 08:29 Insulin Glargine (Lantus Solostar Pen) 20 units DAILY SC 06/10/17 09:00 07/05/17 08:59 Objective Vital Signs Date Time Temp Pulse Resp B/P (MAP) Pulse Ox O2 Delivery O2 Flow Rate FiO2 06/09/17 10:27 83 06/09/17 09:15 36.7 83 16 106/68 (81) 91 Nasal Cannula 2.0 06/09/17 08:48 37.2 81 19 116/69 (81) 94 Nasal Cannula 2 06/09/17 08:41 117/67 06/09/17 08:40 78 22 98 06/09/17 08:40 79 22 06/09/17 08:36 103/63 06/09/17 08:35 85 20 95 06/09/17 08:35 89 20 06/09/17 08:31 110/66 06/09/17 08:30 90 15 93 06/09/17 08:30 89 15 06/09/17 08:26 107/59 06/09/17 08:25 84 17 06/09/17 08:25 89 17 93 06/09/17 08:21 110/62 06/09/17 08:20 78 21 89 06/09/17 08:20 79 21 06/09/17 08:20 37.1 85 18 110/62 (69) 94 Nasal Cannula 6 06/09/17 08:00 92 Room Air 06/09/17 04:12 36.7 75 18 112/70 (84) 90 Room Air 06/09/17 03:56 36.5 89 18 128/76 (93) 94 Room Air 06/09/17 00:00 94 Room Air 06/08/17 23:50 36.7 91 20 122/77 (92) 94 Room Air 06/08/17 20:54 72 136/79 (98) 06/08/17 16:00 94 Room Air 06/08/17 15:07 36.7 73 18 114/65 (81) 94 Room Air Physical Exam General Appearance: WD/WN, no apparent distress Eyes: normal inspection, PERRL, EOMI Neck: supple, no JVD, trachea midline Respiratory/Chest: normal breath sounds, no respiratory distress, no accessory muscle use Cardiovascular: regular rate, rhythm, no edema, no murmur Abdomen: normal bowel sounds, non tender, soft Extremities: normal inspection, no pedal edema, no calf tenderness Neurologic/Psych: alert, normal mood/affect, oriented x 3 Skin: normal color, no jaundice, no rash Laboratory Results Last 24 Hours Test 06/08/17 16:42 06/08/17 21:22 06/09/17 07:54 06/09/17 10:03 Bedside Glucose 161 mg/dl 106 mg/dl 146 mg/dl Prothrombin Time 10.6 SECONDS Prothromb Time International Ratio 1.0 Sodium Level 138 mmol/L Potassium Level 3.7 mmol/L Chloride Level 105 mmol/L Carbon Dioxide Level 28 mmol/L Anion Gap 5.0 mmol/L Blood Urea Nitrogen 6 mg/dl Creatinine 0.45 mg/dl Est Creatinine Clear Calc Drug Dose 136.9 ml/min Estimated GFR () 124.5 Estimated GFR (Non- 107.4 BUN/Creatinine Ratio 13.5 Random Glucose 166 mg/dl Calcium Level 10.3 mg/dl Test 06/09/17 11:49 Bedside Glucose 285 mg/dl Assessment and Plan Patient is a 61 year old female with hx of pancreas ca s/p Whipple in 2013, currently admitted for n/v, abd pain, labs and CT imaging consistent with pancreatitis. She does have chronic pancreatitis and abd pain, managed by Dr. Claude Murguia in [facility]. s/p celiac plexus block by Pain Management this AM, abd pain, n/v resolved. She is having BMs Plans - Advance diet slowly as tolerated to low fat - Miralax 17g daily for constipation on DC - LR @ 75ml/hr; may DC if tolerating PO fluid intake well. - Consult Pain Management for possible repeat celiac plexus injection for abd pain -> done this AM - Advised to quit smoking - Symptomatic management otherwise. - Will sign off; Outpt f/u with Dr. Claude Murguia (GI) on DC
[2017-06-09] MEDS: HYDROCODONE/ACETAMIN 5/325MG TAB PO PRN ×2 (14:14→21:43)
[2017-06-09] MEDS ORDERED: HYDR-5688 PO (14:34)
[2017-06-09] MEDS ORDERED: GABA100C13 PO (14:34)
--- NOTE | 2017-06-09 14:39 | Discharge Instructions ---
Discharge Instructions Date of Service Jun 09, 2017. Admission Reason for Admission: Acute On Chronic Pancreatitis Discharge Discharge Diagnosis / Problem: Acute on chronic pancreatitis Discharge Goals Goal(s): Decrease discomfort, Improve function, Increase independence, Improve disease control, Improve nutritional status, Learn about illness, Diagnostic testing, Therapeutic intervention, Prevent Disease Progression Activity Recommendations Activity Limitations: resume your previous activity . Instructions / Follow-Up Instructions / Follow-Up You were admitted to [facility] due to acute on chronic pancreatitis. Despite management with pain medications and IVF, your pain continued. Due pain, pain management did a celiac plexus block, which resolved your symptoms. Your diet was slowly advanced and you tolerated it well. You are now stable for discharge to home. Gabapentin was INCREASED to 200 mg TID by pain management. You may take [place] every 4 hours as needed for pain control. Continue regular bowel regimen to avoid constipation. Resume all other regular home medications as prescribed It is advised that you avoid all tobacco products FOLLOW-UPS: Please follow-up with your PCP within 5-7 days Please follow-up with GI, Dr. Murguia as scheduled Follow-up with pain management, Dr. Lopez as needed Continue routine INR checks Please call cardiology to reschedule pacemaker implantation Please follow-up/keep all of your subspecialty appointments Current Hospital Diet Patient's current hospital diet: Diabetes Type 2 Diet Discharge Diet Recommended Diet: Low Fiber Diet Procedures Procedures Performed: Diagnostic Celiac Plexus Block Pending Studies Studies pending at discharge: no Medical Emergencies . Who to Call and When: Medical Emergencies: If at any time you feel your situation is an emergency, please call 911 immediately. . Non-Emergent Contact Non-Emergency issues call your: Primary Care Provider, Bird Tender Call Non-Emergent contact if: you have a fever, your pain is not controlled, your pain is worsening, your pain is unusual for you, your pain is concerning you, wound has increased drainage, wound has increased redness, wound has increased pain, you have any medication questions . . "Provider Documentation" section prepared by Kasey Cope. .
--- NOTE | 2017-06-09 14:44 | Discharge Summary ---
Discharge Summary Date of Service Jun 09, 2017. Discharge Summary Admission Date: Jun 04, 2017 at 20:39 Discharge Date: Jun 10, 2017 Discharge Disposition: Home Principal Diagnosis: Acute on chronic pancreaitis Problems/Secondary Diagnoses: Acute pancreatitis h/o recurrent pancreatitis h/o pancreatic cancer s/p Whipple's in 2014 Constipation A. fib CAD E. coli UTI- pansensitive T2DM Gout Tobacco Use GERD Immunizations: Have You Had Influenza Vaccine: No History of Tetanus Vaccine?: No History of Pneumococcal: No History of Hepatitis B Vaccine: No Procedures: ABDOMEN AND PELVIS CT WITHOUT CONTRAST CT DOSE: 669.94 mGy.cm HISTORY: Acute bilateral flank pain eval ureteral stone, pancreatitis, diverticulitis TECHNIQUE: Multiaxial CT images of the abdomen and pelvis were performed without contrast. A dose lowering technique was utilized adhering to the principles of ALARA. COMPARISON STUDY: CT abdomen and pelvis 02/18/2016. FINDINGS: Subsegmental groundglass opacities of the inferior segment lingula favor atelectasis. There is no pneumatosis or pneumoperitoneum identified. Imaged inferior cardiac chambers are the upper limits of normal with small pericardial effusion. Coronary arterial disease is noted. Prior cholecystectomy. Fatty infiltration of the liver. Spleen, and right adrenal gland are unremarkable. Calcifications associated with the left adrenal gland suggest prior hemorrhage or infection. Nodular thickening of the left adrenal gland redemonstrated. Study is limited secondary to patient motion. There is interstitial and mild peripancreatic inflammatory stranding adjacent to the distal pancreatic body and pancreatic tail without drainable fluid collection identified. Scattered pancreatic calcifications are also noted suggesting sequela of chronic pancreatitis. No drainable fluid collections are identified. Bilateral nephrolithiasis with 6 mm nonobstructing calculus of the inferior pole left kidney. No ureteral calculi or obstructive uropathy. Large cyst of the medial inferior pole right kidney measures up to 7.1 x 6.6 cm. The bladder is partially collapsed. Prior hysterectomy. No adnexal mass lesions identified. Moderate atherosclerosis of the aorta without aneurysm. No bulky adenopathy identified. There is no bowel obstruction or focal bowel wall thickening identified. Postsurgical changes are noted within the distal stomach, small bowel and rectum. Small fat filled left lower lateral abdominal wall incisional hernias noted, diastases 1.6 cm. Soft tissues are unremarkable. Bones appear intact. Intervertebral disc space narrowing is seen at L4-L5 and L5-S1. IMPRESSION: 1. Mild interstitial and peripancreatic inflammatory stranding with trace free fluid of the distal pancreatic body and pancreatic tail suggests acute pancreatitis without drainable fluid collection. Correlate with lipase level. Additionally, there is evidence of chronic pancreatitis. 2. Bilateral nephrolithiasis without ureteral calculi or obstructive uropathy. 3. Hepatic steatosis. 4. Prior cholecystectomy and hysterectomy. 5. Small pericardial effusion. Electronically signed by: Michel Garcia M.D. 06/04/2017 7:08 PM Dictated Date/Time: 06/04/2017 7:00 PM The status of this report is Signed. Draft = Not yet reviewed or approved by Radiologist. Signed = Reviewed and approved by Radiologist. Pain Clinic Operative Note CELIAC PLEXUS BLOCK Diagnosis: pancreatitis with intractable pain Side injected: right Surgeon: Dr. Chelsey Lopez Anesthesia: local sedation Material forwarded to lab: none Complications noted: none Prior to starting, the Patients diagnosis and the procedure were reviewed with the patient in detail. Possible risks, complications and alternative therapies were also reviewed. Patients questions were answered. Informed consent was obtained. Allergies and medication list was reviewed. A peripheral IV was started and one liter of normal saline was administered. Ancef was given IV prior to the start of the injection. IV sedation was given per anesthetic record. The patient was brought to the operating room and placed in prone position on the table. Immediately prior to starting the procedure, a time out was conducted with the staff and the patient where the Patient was identified , proposed procedure was verified, consent was reviewed and the proper site for the planned procedure was identified. Fluoroscopy was utilized in performing the procedure to assist in placement of the needle, to evaluate the final position on the needle prior to injection and to avoid intravascular injection. The thoracolumbar spine area was prepped with chloraprep. Sterile drapes were applied. Next, a true AP view of the L1 vertebral body was identified. The C- arm was then oblique to the appropriate side approximately 35 degrees so that the superior lateral margin of the vertebral body was congruent with the transverse process. 1% lidocaine, 4 cc, was infiltrated in the skin and subcutaneous tissues using a 27 gauge needle. Then a 7 inch Quincke spinal needle was introduced at the superior lateral margin of the L1 vertebral body and advanced until contact was made with the vertebral body. The needle was the rotated and walked off laterally from the vertebral body. Next, a lateral Xray was taken and the needle was advanced until it lied just anterior to the L1 vertebral body. This was confirmed in AP view. A 6 inch micro bore tubing was attached to the needle. No contrast was utilized secondary to allergy. No heme or paresthesias were noted. No CSF was noted. Next 15ml of 0.5% Ropivacaine with 1:200,000 Epinephrine mixed with 10mg of preservative free dexamethasone was injected in 5ml aliquots after negative aspiration for blood or CSF. No complications were noted. There were no signs or symptoms of local anesthetic toxicity. The needle was withdrawn. Adequate hemostasis was noted. A sterile Band-Aid was applied at the injection site. Patient was able to log roll back to the supine position. I accompanied the patient to the recovery room without complications noted. Should the patient have relief with this diagnostic procedure, I will plan for neurolytic block in the future should pain recur. I attest to the content of the Intraoperative Record and any orders documented therein. Any exceptions are noted below. <Electronically signed by Chelsey Lopez D.O.> Signed: 06/09/17 0825 The status of this report is Signed Draft = Not yet finalized by the Admitting Physician Consultations: GI Pain management Medication Reconciliation New Medications: Hydrocodone/Acetaminophen 5MG/325MG ([place] 5MG/325MG) Tab 1 TAB PO Q4H PRN for Pain for 3 Days, #18 TAB PRN PAIN Changed Medications: Gabapentin (Neurontin) 100 Mg Cap 2 CAP PO TID for 30 Days, #180 CAP 2 Refills (Changed from: 100 MG; Refills: ) Continued Medications: Acetaminophen (Tylenol) 500 Mg Tab 2 TAB PO Q6 PRN for Pain for 2 Days, #20 TAB 3 Refills Albuterol Hfa (Ventolin Hfa) 200 Puffs/15532 Mcg Aers 2 PUFF INH QID PRN for SOB/Wheezing Allopurinol (Allopurinol) 100 Mg Tab 100 MG PO DAILY Ascorbic Acid (Vitamin C) 500 Mg Tab 2 TAB PO NOON Cholecalciferol (Vitamin D3) 2,000 Unit Tab 1 TAB PO BID Colestipol Hcl (Colestid) 1 Gm Tab 2 GM PO BID, TAB Cyanocobalamin (Vitamin B-12) 1,000 Mcg Tab 1000 MCG PO QAM, TAB Digoxin (Digox) 125 Mcg Tab 125 MCG PO QAM Diltiazem Hcl Coated Beads (Cartia Xt) 120 Mg Cap 120 MG PO BID Docusate Sodium (Colace) 100 Mg Cap 1 CAP PO BID, CAP Fenofibrate (Fenofibrate) 145 Mg Tab 145 MG PO QAM, #30 Fish Oil (Barry-3) 1 Ea Cap 1 CAP PO QPM, CAP Insulin Glargine (Lantus Solostar) 100 Unit/Ml Inj 44 UNITS SC HS, PEN Insulin Lispro (Human) (Humalog Kwikpen) 100 Unit/Ml Inj 22 UNITS SQ BID take with breakfast & lunch Insulin Lispro (Human) (Humalog Kwikpen) 100 Unit/Ml Inj 20 UNITS SQ qsupper Magnesium Oxide (Mag-Ox) 400 Mg Tab 400 MG PO BID, TAB Metoprolol Succinate (Metoprolol Succinate ER) 25 Mg Tabcr 25 MG PO BID Naloxegol Oxalate (Movantik) 12.5 Mg Tab 12.5 MG PO QPM Ondansetron Hcl (Zofran) 4 Mg Tab 4 MG PO PC PRN for Nausea, TAB Pancrelipase (Lipase-Protease- (Creon 91937) 1 Cap Cap 2 CAP PO TIDM, CAP Pantoprazole (Pantoprazole Sodium) 40 Mg Tab 40 MG PO DAILY Polyethylene Glycol 3350 (Miralax) 1 Pow Pow 17 GM PO DAILY for CONSTIPATION Sucralfate (Carafate) 1 Gm Tab 1 GM PO QID, TAB DISSOLVE TABLET INTO 4OZ OF WATER FOUR TIMES DAILY Trazodone Hcl (Trazodone) 50 Mg Tab 150 MG PO HS, TAB Warfarin Sodium (Coumadin) 3 Mg Tab 3.5 MG PO DAILY, TAB PER DR SEPULVEDA Discontinued Medications: Hydrocodone/Acetaminophen 5MG/325MG ([place] 5MG/325MG) Tab 1 TABLET PO PRN UD PRN for Pain, TAB PRN PAIN Referrals At Discharge Follow up Referrals: Family Practice Referral - Within 1 Week with Michael Sepulveda M.D. Discharge Exam Review of Systems: Constitutional: No fever, No chills, No sweats, No weakness, No fatigue Eyes: No worsening of vision ENT: No hearing loss Respiratory: No cough, No shortness of breath Cardiovascular: No chest pain, No edema, No palpitations Abdomen: No pain, No nausea, No vomiting, No diarrhea, No constipation Musculoskeletal: No joint pain, No swelling, No calf pain Genitourinary - Female: No dysuria, No hematuria Neurologic: No weakness, No numbness/tingling Psychiatric: No depression symptoms, No anxiety Endocrine: No fatigue Hematologic / Lymphatic: No abnormal bleeding/bruising Integumentary: No rash, No itch, No new/changing skin lesions Physical Exam: General Appearance: no apparent distress Eyes: normal inspection, PERRL ENT: hearing grossly normal Neck: supple Respiratory/Chest: lungs clear, no respiratory distress, no accessory muscle use Cardiovascular: + irregularly irregular (rate controlled) Abdomen / GI: normal bowel sounds, non tender, soft Extremities: no calf tenderness, no pedal edema Neurologic/Psychiatric: alert, normal mood/affect, oriented x 3 Skin: normal color, warm/dry, no rash Hospital Course 61 y/o F Hx chronic AF, DM II, CAD, gout, chronic pancreatitis. The pt developed abdominal and back pain, accompanied by nausea and a few episodes of vomiting earlier in the day. She states that her symptoms are consistent with bouts of pancreatitis she has had in the past. She denies CP, SOB, diarrhea or fevers. A CT abdomen is consistent with acute pancreatitis. Lipase is mildly elevated, a UA is (+). Acute pancreatitis , h/o recurrent pancreatitis, h/o pancreatic cancer s/p Whipple's in 2013- follows w/ Dr. Murguia: - Advance diet as tolerated- tolerating well - LR @ 150 ml/hr- discontinued once tolerating full diet - Compazine, Phenergan, Zofran PRN for nausea - IV Dilaudid 1 mg q2hr PRN for pain management- transitioned to [employer] pump for better pain control- now s/p injection, Gabapentin 200 TID and [place] PRN for pain control - Lipase 557--> 497 - GI consulted, appreciate recommendations- consulted pain management for nerve block, continue outpatient f/u w/ Dr. Murguia - Pain management consulted, appreciate recommendations- s/p celiac plexus injection on 06/09 Constipation- RESOLVED: - Dulcolax suppository PRN, add MiraLAX daily- small BM today, continue to follow - Relistor SQ for constipation x1 on 06/07- may give additional dose if needed - Recommend continuing daily bowel regimen at discharge, especially while on PRN pain medications A. fib- rate controlled, CAD- STABLE: - Continue Metoprolol, Digoxin, Cardizem - Resume lipid lower agent once tolerating PO - Coumadin was held for pacemaker implantation scheduled for 06/09- pt cancelled surgery- Coumadin 3 mg HS held pending nerve block- resumed, continue outpt PT/ INR checks E. coli UTI- pansensitive: IV Rocephin x4 days- treatment completed T2DM: Resume regular home regimen at discharge Gout: Continue Allopurinol Tobacco Use: - Nicotine pain - Smoking cessation counselling GERD: Protonix + Carafate DVT prophylaxis: Coumadin Code status: LEVEL I, FULL Disposition: Discharge to home Total Time Spent: Greater than 30 minutes This includes examination of the patient, discharge planning, medication reconciliation, and communication with other providers. Discharge Instructions Please refer to the electronic Patient Visit Report (Discharge Instructions) for additional information. Follow-Up Please follow-up with your PCP within 5-7 days Please follow-up with GI, Dr. Murguia as scheduled Follow-up with pain management, Dr. Lopez as needed Continue routine INR checks Please call cardiology to reschedule pacemaker implantation Please follow-up/keep all of your subspecialty appointments Additional Copies To Michael Sepulveda M.D.
[2017-06-09] MEDS ORDERED: NURSING VERBAL MED ORDER ONE (17:15)
[2017-06-09] MEDS ORDERED: INSULIN GLARGINE SOLOSTAR 100 UNITS/ML 3 ML PEN SC ONE (17:15)
[2017-06-09] MEDS: ONDANSETRON INJ 2 MG/ML 2 ML VIAL IV PRN (20:25)
[2017-06-09] MEDS: PROMETHAZINE HCL INJ 25 MG in SODIUM CHLORIDE 0.9% 50ML 50 ML IV PRN (21:41)
[2017-06-09] MEDS: TRAZODONE HCL 50 MG TAB PO SCH (21:45)
[2017-06-10 01:07] VITALS: O2SAT 91
[2017-06-10 03:47] VITALS: BP 144/68; PULSE 67; TEMP 36.6; O2SAT 95
[2017-06-10] MEDS: LACTATED RINGER'S 1000ML 1,000 ML IV SCH (04:58)
[2017-06-10] MEDS: SUCRALFATE 1 GM TAB PO SCH ×2 (05:54→10:32)
[2017-06-10 06:54] VITALS: BP 130/81; PULSE 69; TEMP 36.5; O2SAT 95
[2017-06-10 07:11] LABS: CREATININE 0.55 mg/dl (0.60-1.20); POTASSIUM 3.4 mmol/L (3.5-5.1)
[2017-06-10] MEDS: DILTIAZEM HCL 120 MG CAPCR PO SCH (08:03)
[2017-06-10] MEDS: MAGNESIUM OXIDE 400 MG TAB PO SCH (08:03)
[2017-06-10] MEDS: GABAPENTIN 100 MG CAP PO SCH (08:04)
[2017-06-10] MEDS: ALLOPURINOL 100 MG TAB PO SCH (08:04)
[2017-06-10] MEDS: PANTOprazole SOD 40 MG TAB PO SCH (08:07)
[2017-06-10] MEDS: DIGOXIN 0.125 MG TAB PO SCH (08:07)
[2017-06-10] MEDS: DOCUSATE SODIUM 100 MG CAP PO SCH (08:07)
[2017-06-10] MEDS: METOPROLOL SUCC 25MG EXT REL TAB PO SCH (08:08)
[2017-06-10] MEDS: INSULIN ASPART 100 UNITS/ML 3 ML PEN SC SCH (08:11)
[2017-06-10] MEDS ORDERED: INSULIN GLARGINE SOLOSTAR 100 UNITS/ML 3 ML PEN SC SCH (09:00)
[2017-06-10 09:17] VITALS: BP 130/81; PULSE 72; TEMP 36.5; O2SAT 95
[2017-06-10] MEDS: ONDANSETRON INJ 2 MG/ML 2 ML VIAL IV PRN (09:48)
[2017-06-10] MEDS ORDERED: ONDA4TAB46 PO (10:25)
== END 2017-06-10 11:05 | disposition home or self-care (01) | DRG 439 ==
LOC: EDBD 16:51 → C.EDC 16:51 → C.MS2W 20:39 → ENRESERV 20:52
PROVIDERS: ADMIT Internal Medicine; ATTEND Internal Medicine
PROC: 3E0T3BZ Introduction of Anesthetic Agent into Peripheral Nerves and Plexi, Percutaneous Approach (ICD-10-PCS; principal; 2017-06-09 07:45)
DX: K85.90 Acute pancreatitis without necrosis or infection, unspecified (principal); N39.0 Urinary tract infection, site not specified; K86.1 Other chronic pancreatitis; E11.9 Type 2 diabetes mellitus without complications; I11.0 Hypertensive heart disease with heart failure; A49.8 Other bacterial infections of unspecified site; N20.0 Calculus of kidney; K59.03 Drug induced constipation; I48.91 Unspecified atrial fibrillation; M10.9 Gout, unspecified; I25.10 Atherosclerotic heart disease of native coronary artery without angina pectoris; E78.00 Pure hypercholesterolemia, unspecified; K76.0 Fatty (change of) liver, not elsewhere classified; Z88.5 Allergy status to narcotic agent; Z91.013 Allergy to seafood; Z88.2 Allergy status to sulfonamides; Z88.8 Allergy status to other drugs, medicaments and biological substances; Z86.73 Personal history of transient ischemic attack (TIA), and cerebral infarction without residual deficits; Z85.07 Personal history of malignant neoplasm of pancreas; Z90.710 Acquired absence of both cervix and uterus; Z79.4 Long term (current) use of insulin; Z79.01 Long term (current) use of anticoagulants; Z90.49 Acquired absence of other specified parts of digestive tract; Z87.442 Personal history of urinary calculi; Z82.0 Family history of epilepsy and other diseases of the nervous system; Z82.49 Family history of ischemic heart disease and other diseases of the circulatory system; Z84.1 Family history of disorders of kidney and ureter

== ENCOUNTER 2017-06-13 14:55 | Inpatient (IN) | payer OTHER ==
[~2017-06-13] VITALS: Ht 165.1 cm; Wt 70.7 kg
[~2017-06-13 14:55] MED LIST changes: -ASCA500 PO; -CITA20TA4 PO; +DOCU-94 PO; -FNTTP25 TD; +GABA100C13 PO; +HYDR-5688 PO; +MAGN400T6 PO; -METO50TA8 PO; -NICO7DIS7 TD; -NRN/100 PO; -NVLGI/PEN SQ; +ONDA4TAB46 PO; -PANT1TAB3 PO; +SUCR1TAB29 PO; +TPRSR/25 PO; +TRAZ50TA35 PO
[2017-06-13] MEDS ORDERED: HYDROmorphone INJ 1 MG/ML SYR IV STA ×2 (15:08→19:53)
[2017-06-13] MEDS ORDERED: SODIUM CHLORIDE 0.9% 1000ML 1,000 ML IV STA (15:08)
[2017-06-13] MEDS ORDERED: ASCA500 PO (15:12)
--- NOTE | 2017-06-13 15:16 | EMERGENCY ROOM VISIT NOTE ---
History Report prepared by Chuyita: Telma Santoro Under the Supervision of: Dr. Dmitriy Giordano M.D. First contact with patient: 14:59 Stated Complaint: AB PAIN History of Present Illness The patient is a 61 year old female who presents to the Emergency Room with complaints of persistent abdominal pain starting 2 days ago. The patient has a history of pancreatic cancer and chronic pancreatitis. The patient has had a Whipple procedure. She was admitted to the hospital for a week recently with the same pain. She states that she has been unable to eat or sleep because of the pain. She is also having pain in the left back which made her think that she might have a kidney stone. She has been having blood and burning with urination. She reports diarrhea, subjective fever, and chills. She has some SOB. She denies any chest pain. She has a history of diabetes. Her blood sugars have been OK. She is on Coumadin. She has a history of atrial fibrillation. Source of History: patient, EMS Onset: 2 days ago Position: abdomen Symptom Intensity: severe Quality: other (pancreatitis pain) Timing: other (persistent) Associated Symptoms: + fevers, + chills, + SOB, + back pain, + diarrhea, + urinary symptoms, No chest pain Review of Systems See HPI for pertinent positives & negatives. A total of 10 systems reviewed and were otherwise negative. Past Medical & Surgical Medical Problems: (1) A-fib (2) Diverticulitis (3) Heart disease (4) HTN (hypertension) (5) Kidney stones (6) Pancreatic cancer Surgical Problems: (1) Hx of appendectomy (2) Hx of cholecystectomy Old medical records were reviewed. Nurse's notes were reviewed and I agree with. Family History FH: cancer FH: heart disease Hypertension Kidney disease Kidney stones Seizures Social History Smoking Status: Current Every Day Smoker Alcohol Use: none Drug Use: none Marital Status: Housing Status: lives with family Occupation Status: unemployed Current/Historical Medications Scheduled Allopurinol (Allopurinol), 100 MG PO DAILY Ascorbic Acid (Vitamin C), 2 TAB PO NOON Cholecalciferol (Vitamin D3), 1 TAB PO BID Citalopram (Citalopram Hydrobromide), 20 MG PO DAILY Colestipol Hcl (Colestid), 2 GM PO BID Cyanocobalamin (Vitamin B-12), 1,000 MCG PO QAM Digoxin (Digox), 125 MCG PO QAM Diltiazem Hcl Coated Beads (Cartia Xt), 120 MG PO BID Docusate Sodium (Colace), 1 CAP PO BID Fenofibrate (Fenofibrate), 145 MG PO QAM Fish Oil (Portis-3), 1 CAP PO QPM Gabapentin (Neurontin), 2 CAP PO TID Insulin Glargine (Lantus Solostar), 44 UNITS SC HS Insulin Lispro (Human) (Humalog Kwikpen), 22 UNITS SQ BID Insulin Lispro (Human) (Humalog Kwikpen), 20 UNITS SQ qsupper Magnesium Oxide (Mag-Ox), 400 MG PO BID Metoprolol Succinate (Metoprolol Succinate ER), 25 MG PO BID Naloxegol Oxalate (Movantik), 12.5 MG PO QPM Pancrelipase (Lipase-Protease- (Creon 46801), 2 CAP PO TIDM Pantoprazole (Pantoprazole Sodium), 40 MG PO DAILY Polyethylene Glycol 3350 (Miralax), 17 GM PO DAILY Sucralfate (Carafate), 1 GM PO QID Trazodone Hcl (Trazodone), 150 MG PO HS Warfarin Sodium (Coumadin), 3.5 MG PO DAILY Scheduled PRN Acetaminophen (Tylenol), 2 TAB PO Q6 PRN for Pain Albuterol Hfa (Ventolin Hfa), 2 PUFF INH QID PRN for SOB/Wheezing Hydrocodone/Acetaminophen 5MG/325MG (Tatums 5MG/325MG), 1 TAB PO Q4H PRN for Pain Ondansetron Hcl (Zofran), 4 MG PO PC PRN for Nausea Allergies Coded Allergies: Iodinated Diagnostic Agents (Verified Allergy, Severe, HIVES, AIRWAY SWELLS FROM CT DYE, 01/18/17) Iodine (Verified Allergy, Severe, airway swells shut, 06/08/17) Azithromycin (Verified Allergy, Intermediate, RASH, 06/08/17) Ceftriaxone (Verified Allergy, Intermediate, RASH, 06/04/17) Adhesives (Verified Allergy, Mild, RASH AND SORE SKIN FROM TAPE ADHESIVES , 01/18/17) Alcohol (Verified Allergy, Unknown, hives, 01/18/17) no alcohol wipes Atorvastatin (Verified Allergy, Unknown, UNKNOWN, 01/18/17) Isopropyl Alcohol (Verified Allergy, Unknown, UNKNOWN, 01/18/17) Lemon Oil (Verified Allergy, Unknown, UNKNOWN, 01/18/17) Lorazepam (Verified Allergy, Unknown, RASH, 01/18/17) Morphine (Verified Allergy, Unknown, stops heart, 06/08/17) Ondansetron (Verified Allergy, Unknown, rash, 01/18/17) Rosuvastatin (Verified Allergy, Unknown, UNKNOWN, 01/18/17) Shellfish (Verified Allergy, Unknown, UNKNOWN, 01/18/17) Sulfamethoxazole w/Trimethoprim (Verified Allergy, Unknown, UNKNOWN, ) Ciprofloxacin (Verified Adverse Reaction, Unknown, INTERFERES WITH COUMADIN, 01/18/17) Ezetimibe (Verified Adverse Reaction, Unknown, RAPID HEART BEAT, 01/18/17) Gemfibrozil (Verified Adverse Reaction, Unknown, MYALGIAS, 01/18/17) Lovastatin (Verified Adverse Reaction, Unknown, MYALGIAS, 06/08/17) Tramadol (Verified Adverse Reaction, Unknown, CHEST TIGHTNESS, 01/18/17) Physical Exam Vital Signs Date Time Temp Pulse Resp B/P (MAP) Pulse Ox O2 Delivery O2 Flow Rate FiO2 06/13/17 16:35 82 18 06/13/17 16:31 136/79 06/13/17 16:30 85 16 06/13/17 16:25 87 16 06/13/17 16:20 99 19 06/13/17 16:15 93 13 06/13/17 16:10 88 18 06/13/17 16:05 92 16 06/13/17 16:01 133/90 06/13/17 16:00 90 17 06/13/17 15:55 93 20 06/13/17 15:50 88 20 06/13/17 15:45 91 15 06/13/17 15:40 108 15 06/13/17 15:35 108 16 06/13/17 15:31 134/85 06/13/17 15:30 120 19 06/13/17 15:25 120 17 06/13/17 15:21 126 06/13/17 15:20 117 24 06/13/17 15:15 111 25 06/13/17 15:07 111/84 06/13/17 15:07 36.6 124 24 111/84 99 Room Air Physical Exam General: Older female who is teary eyed and complaining of abdominal pain. HEENT: Normal cephalic atraumatic. Pupils are equal round and reactive to light. Extraocular movements are intact. Oropharynx is pink with moist mucous membranes. No swelling of the mouth lips or tongue. Neck: Supple with a midline trachea. No meningeal signs or stiffness, no JVD or bruits. No Stridor. Chest: Clear to auscultation bilaterally. No wheezes or rhonchi. No increased work of breathing. Heart: regular rate and rhythm. Abdomen: Soft, mild tenderness in lower abdomen bilaterally, nondistended without rebound guarding or rigidity. Extremities: No cyanosis clubbing or edema. No calf tenderness or assymetry Spine/Back. Non tender to palpation. No CVA tenderness Skin: Good turgor without rashes. Neurologic exam: Cranial nerves two through 12 are intact. Motor and sensation are intact and symmetrical throughout. Medical Decision & Procedures ER Provider Diagnostic Interpretation: Radiology results as stated below per my review and radiologist interpretation: ABD/PELVIS NO IV OR ORAL CONT CT DOSE: 655.27 mGy.cm HISTORY: Pain eval for obs, pancreatitis, post-op comp TECHNIQUE: Multiaxial CT images of the abdomen and pelvis were performed without contrast. A dose lowering technique was utilized adhering to the principles of ALARA. COMPARISON STUDY: 06/04/2017 FINDINGS: Lung bases are generally clear. Liver and spleen remain unremarkable. Slight increase in edematous change of the pancreatic body and tail. Slight increase in peripancreatic infiltrative change. Multiple pancreatic calcifications unaltered from the prior study. Several reactive peripancreatic as well as mesenteric and retroperitoneal nodes. Mild infiltrative change of the perigastric region as compared to the prior study. The kidneys demonstrate a large cyst inferior pole right kidney. Bilateral nephrocalcinosis is unchanged. No evidence for hydronephrosis or obstructive nephrocalcinosis. 6 mm nonobstructing calcification within the left renal pelvis medially proximal to left ureteropelvic junction. The lower abdominal as well as pelvic bowel pattern is nonobstructive. Bladder is midline. There is no significant free fluid within the pelvic cul-de-sac. Patient is post prior cholecystectomy and hysterectomy. There is a small left anterior ventral hernia containing a short segment of colon. This is considered to be a nonobstructive finding. IMPRESSION: 1. Pancreatitis slightly increased in prominence compared to the prior study. 2. Peripancreatic infiltrative change has shown a slight degree of progression now with mild perigastric and left perinephric infiltrative change. 3. No evidence for abscess or collection. 4. 6 mm nonobstructing/minimally obstructing calculus within the left renal pelvis slightly proximal to the left ureteropelvic junction. The above report was generated using voice recognition software. It may contain grammatical, syntax or spelling errors. Electronically signed by: Haim Bal M.D. 06/13/2017 5:48 PM Dictated Date/Time: 06/13/2017 5:41 PM Laboratory Results 06/13/17 16:14 Red Blood Count 4.54, Mean Corpuscular Volume 86.1, Mean Corpuscular Hemoglobin 29.7, Mean Corpuscular Hemoglobin Concent 34.5, Mean Platelet Volume 10.3, Neutrophils (%) (Auto) 53.2, Lymphocytes (%) (Auto) 33.5, Monocytes (%) (Auto) 11.9, Eosinophils (%) (Auto) 1.1, Basophils (%) (Auto) 0.2, Neutrophils # (Auto ) 4.27, Lymphocytes # (Auto) 2.70, Monocytes # (Auto) 0.96, Eosinophils # (Auto ) 0.09, Basophils # (Auto) 0.02 06/13/17 16:14 Test 06/13/17 16:14 06/13/17 18:00 White Blood Count 8.05 K/uL (4.8-10.8) Red Blood Count 4.54 M/uL (4.2-5.4) Hemoglobin 13.5 g/dL (12.0-16.0) Hematocrit 39.1 % (37-47) Mean Corpuscular Volume 86.1 fL (80-100) Mean Corpuscular Hemoglobin 29.7 pg (25-34) Mean Corpuscular Hemoglobin Concent 34.5 g/dl (32-36) Platelet Count 219 K/uL (130-400) Mean Platelet Volume 10.3 fL (7.4-10.4) Neutrophils (%) (Auto) 53.2 % Lymphocytes (%) (Auto) 33.5 % Monocytes (%) (Auto) 11.9 % Eosinophils (%) (Auto) 1.1 % Basophils (%) (Auto) 0.2 % Neutrophils # (Auto) 4.27 K/uL (1.4-6.5) Lymphocytes # (Auto) 2.70 K/uL (1.2-3.4) Monocytes # (Auto) 0.96 K/uL (0.11-0.59) Eosinophils # (Auto) 0.09 K/uL (0-0.5) Basophils # (Auto) 0.02 K/uL (0-0.2) RDW Standard Deviation 42.0 fL (36.4-46.3) RDW Coefficient of Variation 13.3 % (11.5-14.5) Immature Granulocyte % (Auto) 0.1 % Immature Granulocyte # (Auto) 0.01 K/uL (0.00-0.02) Prothrombin Time 14.9 SECONDS (9.0-12.0) Prothromb Time International Ratio 1.4 (0.9-1.1) Activated Partial Thromboplast Time 27.3 SECONDS (21.0-31.0) Partial Thromboplastin Ratio 1.1 Anion Gap 7.0 mmol/L (3-11) Est Creatinine Clear Calc Drug Dose 115.8 ml/min Estimated GFR () 121.0 Estimated GFR (Non- 104.4 BUN/Creatinine Ratio 17.0 (10-20) Calcium Level 9.6 mg/dl (8.5-10.1) Magnesium Level 1.7 mg/dl (1.8-2.4) Total Bilirubin 0.2 mg/dl (0.2-1) Direct Bilirubin < 0.1 mg/dl (0-0.2) Aspartate Amino Transf (AST/SGOT) 25 U/L (15-37) Alanine Aminotransferase (ALT/SGPT) 34 U/L (12-78) Alkaline Phosphatase 67 U/L (45-117) Total Protein 6.2 gm/dl (6.4-8.2) Albumin 2.7 gm/dl (3.4-5.0) Lipase 187 U/L (73-393) Urine Color YELLOW Urine Appearance CLOUDY (CLEAR) Urine pH 7.5 (4.5-7.5) Urine Specific [place] 1.017 (1.000-1.030) Urine Protein NEG (NEG) Urine Glucose (UA) NEG (NEG) Urine Ketones NEG (NEG) Urine Occult Blood 3+ (NEG) Urine Nitrite NEG (NEG) Urine Bilirubin NEG (NEG) Urine Urobilinogen NEG (NEG) Urine Leukocyte Esterase NEG (NEG) Urine WBC (Auto) 1-5 /hpf (0-5) Urine RBC (Auto) >30 /hpf (0-4) Urine Hyaline Casts (Auto) 0 /lpf (0-5) Urine Epithelial Cells (Auto) 10-20 /lpf (0-5) Urine Bacteria (Auto) NEG (NEG) Laboratory studies as stated above per my review. Medications Administered Medications (Trade) Dose Ordered Sig/August Route Start Time Stop Time Status Last Admin Dose Admin Sodium Chloride 1,000 ml @ 999 mls/hr Q1H1M STAT IV 06/13/17 15:08 06/13/17 16:08 DC 06/13/17 15:32 999 MLS/HR Hydromorphone HCl (Dilaudid Inj) 1 mg NOW STAT IV 06/13/17 15:08 06/13/17 15:11 DC 06/13/17 15:33 1 MG Potassium Chloride (Klor-Con M10) 40 meq NOW STAT PO 06/13/17 18:03 06/13/17 18:05 DC 06/13/17 18:12 40 MEQ ECG Per My Interpretation Indication: SOB/dyspnea Rate (beats per minute): 113 Rhythm: atrial fibrillation (with RVR) Findings: PVC (occasional), no acute ischemic change, other (nonspecific T wave abnormality) Comparison ECG Date: 05-Jun-2017 Change: PVC now present. ED Course 1501: Past medical records reviewed. The patient was evaluated in room B10, and a complete history and physical examination were performed. 1508: Dilaudid Inj 1 mg IV, NSS 1000 ml @ 999 mls/hr IV. 1530: I reevaluated the patient. IV has been established and she is being given her pain medications. She denies that she tried to hurt herself. She notes that she has had thoughts of hurting herself because of her chronic pain, but states that she would not do so. 1605: I reevaluated the patient. She is more comfortable. CT was ordered. 1725: The patient was evaluated by the psych rehabilitation case coordinator who feels that she is not suicidal and is safe. 1731: I reevaluated the patient. She seems comfortable. 1800: Upon reevaluation, the patient is resting comfortably. I discussed the results and treatment plan with the patient. She verbalized agreement of the treatment plan. The patient will be evaluated for further management. 1803: Potassium Chloride 40 meq PO. 180: I discussed the patient's case with JIMENA Edwards hospitalist. The patient will be evaluated for further management. Medical Decision Differentials include, but are not limited to; acute exacerbation of chronic pain, infection, pancreatitis, bowel obstruction, UTI, electrolyte or metabolic abnormality. This patient comes in as described above she has lower abdominal pain. She was seen and admitted for about a week here approximately 1 week ago for similar complaints. She was deemed to be acute on chronic pancreatitis. She appears uncomfortable. She is allergic to morphine but is okay with Dilaudid. IV access established and she was hydrated with IV normal saline was given IV Dilaudid. Multiple blood testing was obtained as well as urinalysis and culture. She was reassessed frequently. I have reviewed the old records. She did have a recent celiac block which is helped in the past. When I reassess her after the Dilaudid she seems more comfortable. She also did voice thoughts of taking pills but denies any thoughts of that she would actually hurt herself. In light of this I did have our mental health rehabilitation case coordinator evaluate her as well. She feels that she is safe and I agree. I did order a CAT scan of her abdomen. She does have pancreatitis which may look slightly worse than before. Her lipase is not elevated however she has chronic pancreatitis and may not be. She has no significant electrolyte or metabolic abnormalities with exception of hypokalemia and she was given potassium 40 mg p.o. Given her pancreatitis and ongoing pain, I do think she needs to be admitted/observed. I have consulted Dr. Mccallum and he does know who well from previous admissions and he saw her in the ER Medication Reconcilliation Current Medication List: was personally reviewed by me Blood Pressure Screening Patient's blood pressure: Elevated blood pressure Blood pressure disposition: Elevated BP felt to be situational Consults Time Called: 1801 Consulting Physician: JIMENA Edwards hospitalist Returned Call: [id number] Discussed the patient's case. The patient will be evaluated for further management. Impression Primary Impression: Pancreatitis Additional Impressions: Diffuse abdominal pain Hypokalemia Scribe Attestation The scribe's documentation has been prepared under my direction and personally reviewed by me in its entirety. I confirm that the note above accurately reflects all work, treatment, procedures, and medical decision making performed by me. Departure Information Dispostion Being Evaluated By Hospitalist Referrals Michael Sepulveda M.D. (PCP) Problem Qualifiers
[2017-06-13] MEDS ORDERED: DOCU-94 PO (16:31)
[2017-06-13] MEDS ORDERED: CLX/20 PO (16:31)
[2017-06-13 16:37] LABS: BASO % 0.2 %; BASO ABS # 0.02 K/uL (0-0.2); EOS % 1.1 %; EOS ABS # 0.09 K/uL (0-0.5); HEMATOCRIT 39.1 % (37-47); HEMOGLOBIN 13.5 g/dL (12.0-16.0); IG# 0.01 K/uL (0.00-0.02); LYMPH % 33.5 %; MEAN CELL VOLUME 86.1 fL (80-100); MEAN CORPUSCULAR HEMOGLOBIN 29.7 pg (25-34); MEAN CORPUSCULAR HGB CONC 34.5 g/dl (32-36); MEAN PLATELET VOLUME 10.3 fL (7.4-10.4); MONO % 11.9 %; MONO ABS # 0.96 K/uL (0.11-0.59); NEUT % 53.2 %; NEUT ABS # 4.27 K/uL (1.4-6.5); PLATELET COUNT 219 K/uL (130-400); RED CELL DISTRIBUTION WIDTH CV 13.3 % (11.5-14.5); WHITE BLOOD COUNT 8.05 K/uL (4.8-10.8)
[2017-06-13 16:50] LABS: INR 1.4 (0.9-1.1); PTT PATIENT 27.3 SECONDS (21.0-31.0)
[2017-06-13 16:56] LABS: ALBUMIN 2.7 gm/dl (3.4-5.0); ALT/SGPT 34 U/L (12-78); BLOOD UREA NITROGEN 8 mg/dl (7-18); CALCIUM 9.6 mg/dl (8.5-10.1); CARBON DIOXIDE 24 mmol/L (21-32); CREATININE 0.49 mg/dl (0.60-1.20); GLUCOSE 111 mg/dl (70-99); LIPASE 187 U/L (73-393); POTASSIUM 2.6 mmol/L (3.5-5.1); SODIUM 141 mmol/L (136-145)
[2017-06-13 16:58] LABS: ALKALINE PHOSPHATASE 67 U/L (45-117); AST/SGOT 25 U/L (15-37); TOTAL PROTEIN 6.2 gm/dl (6.4-8.2)
[2017-06-13] MEDS ORDERED: INSDGIPEN SC (17:15)
--- NOTE | 2017-06-13 17:50 | DIAGNOSTIC IMAGING REPORT ---
ABD/PELVIS NO IV OR ORAL CONT CT DOSE: 655.27 mGy.cm HISTORY: Pain eval for obs, pancreatitis, post-op comp TECHNIQUE: Multiaxial CT images of the abdomen and pelvis were performed without contrast. A dose lowering technique was utilized adhering to the principles of ALARA. COMPARISON STUDY: 06/04/2017 FINDINGS: Lung bases are generally clear. Liver and spleen remain unremarkable. Slight increase in edematous change of the pancreatic body and tail. Slight increase in peripancreatic infiltrative change. Multiple pancreatic calcifications unaltered from the prior study. Several reactive peripancreatic as well as mesenteric and retroperitoneal nodes. Mild infiltrative change of the perigastric region as compared to the prior study. The kidneys demonstrate a large cyst inferior pole right kidney. Bilateral nephrocalcinosis is unchanged. No evidence for hydronephrosis or obstructive nephrocalcinosis. 6 mm nonobstructing calcification within the left renal pelvis medially proximal to left ureteropelvic junction. The lower abdominal as well as pelvic bowel pattern is nonobstructive. Bladder is midline. There is no significant free fluid within the pelvic cul-de-sac. Patient is post prior cholecystectomy and hysterectomy. There is a small left anterior ventral hernia containing a short segment of colon. This is considered to be a nonobstructive finding. IMPRESSION: 1. Pancreatitis slightly increased in prominence compared to the prior study. 2. Peripancreatic infiltrative change has shown a slight degree of progression now with mild perigastric and left perinephric infiltrative change. 3. No evidence for abscess or collection. 4. 6 mm nonobstructing/minimally obstructing calculus within the left renal pelvis slightly proximal to the left ureteropelvic junction. The above report was generated using voice recognition software. It may contain grammatical, syntax or spelling errors. Electronically signed by: Haim Bal M.D. 06/13/2017 5:48 PM Dictated Date/Time: 06/13/2017 5:41 PM
[2017-06-13] MEDS ORDERED: POTASSIUM CHLORIDE 10 MEQ TABCR PO STA (18:03)
[2017-06-13] MEDS ORDERED: MAGNESIUM HYDROXIDE SUSP 30 ML UDC PO PRN (18:30)
[2017-06-13] MEDS ORDERED: POLYETHYLENE (MIRALAX) 17 GM PACK PO PRN (18:30)
[2017-06-13] MEDS ORDERED: ALUMINUM/MAGNESIUM/SIMETH (MAALOX MAX) 30 ML UDC PO PRN (18:30)
[2017-06-13] MEDS ORDERED: HYDROmorphone INJ 1 MG/ML SYR IV PRN (18:30)
[2017-06-13] MEDS ORDERED: ALBUTEROL HFA 8 GM INHALER INH PRN (18:30)
[2017-06-13] MEDS ORDERED: ACETAMINOPHEN 325 MG TAB PO PRN (18:30)
[2017-06-13] MEDS ORDERED: PROCHLORPERAZINE INJ 5 MG in SYRINGE 4 ML IV PRN (18:45)
--- NOTE | 2017-06-13 18:45 | History and Physical ---
History & Physical Date & Time of Service: Jun 13, 2017 at 18:31 Chief Complaint: Ab Pain Primary Care Physician: Michael Sepulveda M.D. History of Present Illness Source: patient, clinic records, hospital records Patient is a pleasant 61 y/o female, with PMHx of h/o recurrent pancreatitis, h/ o pancreatic cancer s/p Whipple's in 2013, a. fib, CAD, T2DM, gout, tobacco use , and GERD, who presented to the ED because of worsening epigastric/L-sided abdominal pain. Patient was discharged from [facility] on Monday. She was admitted for acute on chronic pancreatitis. Her pain was uncontrolled on Dilaudid. She underwent a celiac nerve block on 06/[address] Lopez. Initially, her pain resolved and she was tolerating a full diet prior to discharge. She states on Monday she started to again experience abdominal pain, N/V/D. Still today she was unable to eat and pain was 10/10 so she proceeded to the ED. Her lipase was [address] showed worsening pancreatitis. +fever/chills. Patient denies any sweats, lightheadedness, dizziness, vision changes, CP, palpitations , edema, SOB, wheezing, cough, urinary symptoms, melena, numbness/tingling, weakness, muscle/joint pain, anxiety/depression, active bleeding, or new skin discoloration/changes. Past Medical/Surgical History Medical Problems: Acute pancreatitis h/o recurrent pancreatitis h/o pancreatic cancer s/p Whipple's in 2013 Constipation A. fib CAD E. coli UTI- pansensitive T2DM Gout Tobacco Use GERD Surgical Problems: (1) Hx of appendectomy (2) Hx of cholecystectomy Family History FH: cancer FH: heart disease Hypertension Kidney disease Kidney stones Seizures Social History Smoking Status: Current Every Day Smoker Drug Use: none Marital Status: Housing status: lives with family Occupational Status: unemployed Immunizations History of Influenza Vaccine: No History of Tetanus Vaccine?: No History of Pneumococcal: No History of Hepatitis B Vaccine: No Allergies Coded Allergies: Iodinated Diagnostic Agents (Verified Allergy, Severe, HIVES, AIRWAY SWELLS FROM CT DYE, 01/18/17) Iodine (Verified Allergy, Severe, airway swells shut, 06/08/17) Azithromycin (Verified Allergy, Intermediate, RASH, 06/08/17) Ceftriaxone (Verified Allergy, Intermediate, RASH, 06/04/17) Adhesives (Verified Allergy, Mild, RASH AND SORE SKIN FROM TAPE ADHESIVES , 01/18/17) Alcohol (Verified Allergy, Unknown, hives, 01/18/17) no alcohol wipes Atorvastatin (Verified Allergy, Unknown, UNKNOWN, 01/18/17) Isopropyl Alcohol (Verified Allergy, Unknown, UNKNOWN, 01/18/17) Lemon Oil (Verified Allergy, Unknown, UNKNOWN, 01/18/17) Lorazepam (Verified Allergy, Unknown, RASH, 01/18/17) Morphine (Verified Allergy, Unknown, stops heart, 06/08/17) Ondansetron (Verified Allergy, Unknown, rash, 01/18/17) Rosuvastatin (Verified Allergy, Unknown, UNKNOWN, 01/18/17) Shellfish (Verified Allergy, Unknown, UNKNOWN, 01/18/17) Sulfamethoxazole w/Trimethoprim (Verified Allergy, Unknown, UNKNOWN, ) Ciprofloxacin (Verified Adverse Reaction, Unknown, INTERFERES WITH COUMADIN, 01/18/17) Ezetimibe (Verified Adverse Reaction, Unknown, RAPID HEART BEAT, 01/18/17) Gemfibrozil (Verified Adverse Reaction, Unknown, MYALGIAS, 01/18/17) Lovastatin (Verified Adverse Reaction, Unknown, MYALGIAS, 06/08/17) Tramadol (Verified Adverse Reaction, Unknown, CHEST TIGHTNESS, 01/18/17) Home Medications Scheduled Allopurinol (Allopurinol), 100 MG PO DAILY Ascorbic Acid (Vitamin C), 2 TAB PO NOON Cholecalciferol (Vitamin D3), 1 TAB PO BID Citalopram (Citalopram Hydrobromide), 20 MG PO DAILY Colestipol Hcl (Colestid), 2 GM PO BID Cyanocobalamin (Vitamin B-12), 1,000 MCG PO QAM Digoxin (Digox), 125 MCG PO QAM Diltiazem Hcl Coated Beads (Cartia Xt), 120 MG PO BID Docusate Sodium (Colace), 1 CAP PO BID Fenofibrate (Fenofibrate), 145 MG PO QAM Fish Oil (Crawford-3), 1 CAP PO QPM Gabapentin (Neurontin), 2 CAP PO TID Insulin Glargine (Lantus Solostar), 44 UNITS SC HS Insulin Lispro (Human) (Humalog Kwikpen), 22 UNITS SQ BID Insulin Lispro (Human) (Humalog Kwikpen), 20 UNITS SQ qsupper Magnesium Oxide (Mag-Ox), 400 MG PO BID Metoprolol Succinate (Metoprolol Succinate ER), 25 MG PO BID Naloxegol Oxalate (Movantik), 12.5 MG PO QPM Pancrelipase (Lipase-Protease- (Creon 92863), 2 CAP PO TIDM Pantoprazole (Pantoprazole Sodium), 40 MG PO DAILY Polyethylene Glycol 3350 (Miralax), 17 GM PO DAILY Sucralfate (Carafate), 1 GM PO QID Trazodone Hcl (Trazodone), 150 MG PO HS Warfarin Sodium (Coumadin), 3.5 MG PO DAILY Scheduled PRN Acetaminophen (Tylenol), 2 TAB PO Q6 PRN for Pain Albuterol Hfa (Ventolin Hfa), 2 PUFF INH QID PRN for SOB/Wheezing Hydrocodone/Acetaminophen 5MG/325MG (Rogers 5MG/325MG), 1 TAB PO Q4H PRN for Pain Ondansetron Hcl (Zofran), 4 MG PO PC PRN for Nausea Physical Exam Vital Signs Date Time Temp Pulse Resp B/P (MAP) Pulse Ox O2 Delivery O2 Flow Rate FiO2 06/13/17 16:35 82 18 06/13/17 16:31 136/79 06/13/17 16:30 85 16 06/13/17 16:25 87 16 06/13/17 16:20 99 19 06/13/17 16:15 93 13 06/13/17 16:10 88 18 06/13/17 16:05 92 16 06/13/17 16:01 133/90 06/13/17 16:00 90 17 06/13/17 15:55 93 20 06/13/17 15:50 88 20 06/13/17 15:45 91 15 06/13/17 15:40 108 15 06/13/17 15:35 108 16 06/13/17 15:31 134/85 06/13/17 15:30 120 19 06/13/17 15:25 120 17 06/13/17 15:21 126 06/13/17 15:20 117 24 06/13/17 15:15 111 25 06/13/17 15:07 111/84 06/13/17 15:07 36.6 124 24 111/84 99 Room Air General Appearance: + mild distress (secondary to pain ) Head: normocephalic, atraumatic Eyes: normal inspection, PERRL ENT: hearing grossly normal Neck: supple Respiratory/Chest: lungs clear, no respiratory distress, no accessory muscle use Cardiovascular: + irregularly irregular (rate controlled ) Abdomen/GI: normal bowel sounds, soft, + tenderness (severe ttp of epigastric/L -side abdomen ) Back: normal inspection Extremities/Musculoskelatal: no calf tenderness, no pedal edema Neurologic/Psych: alert, normal mood/affect, oriented x 3 Skin: normal color, warm/dry, no rash Diagnostics Laboratory Results Results Past 24 Hours Test 06/13/17 16:14 06/13/17 18:00 Range/Units White Blood Count 8.05 4.8-10.8 K/uL Red Blood Count 4.54 4.2-5.4 M/uL Hemoglobin 13.5 12.0-16.0 g/dL Hematocrit 39.1 37-47 % Mean Corpuscular Volume 86.1 80-100 fL Mean Corpuscular Hemoglobin 29.7 25-34 pg Mean Corpuscular Hemoglobin Concent 34.5 32-36 g/dl Platelet Count 219 130-400 K/uL Mean Platelet Volume 10.3 7.4-10.4 fL Neutrophils (%) (Auto) 53.2 % Lymphocytes (%) (Auto) 33.5 % Monocytes (%) (Auto) 11.9 % Eosinophils (%) (Auto) 1.1 % Basophils (%) (Auto) 0.2 % Neutrophils # (Auto) 4.27 1.4-6.5 K/uL Lymphocytes # (Auto) 2.70 1.2-3.4 K/uL Monocytes # (Auto) 0.96 0.11-0.59 K/uL Eosinophils # (Auto) 0.09 0-0.5 K/uL Basophils # (Auto) 0.02 0-0.2 K/uL RDW Standard Deviation 42.0 36.4-46.3 fL RDW Coefficient of Variation 13.3 11.5-14.5 % Immature Granulocyte % (Auto) 0.1 % Immature Granulocyte # (Auto) 0.01 0.00-0.02 K/uL Prothrombin Time 14.9 9.0-12.0 SECONDS Prothromb Time International Ratio 1.4 0.9-1.1 Activated Partial Thromboplast Time 27.3 21.0-31.0 SECONDS Partial Thromboplastin Ratio 1.1 Sodium Level 141 136-145 mmol/L Potassium Level 2.6 3.5-5.1 mmol/L Chloride Level 109 98-107 mmol/L Carbon Dioxide Level 24 21-32 mmol/L Anion Gap 7.0 3-11 mmol/L Blood Urea Nitrogen 8 7-18 mg/dl Creatinine 0.49 0.60-1.20 mg/dl Est Creatinine Clear Calc Drug Dose 115.8 ml/min Estimated GFR () 121.0 Estimated GFR (Non- 104.4 BUN/Creatinine Ratio 17.0 10-20 Random Glucose 111 70-99 mg/dl Calcium Level 9.6 8.5-10.1 mg/dl Total Bilirubin 0.2 0.2-1 mg/dl Direct Bilirubin < 0.1 0-0.2 mg/dl Aspartate Amino Transf (AST/SGOT) 25 15-37 U/L Alanine Aminotransferase (ALT/SGPT) 34 12-78 U/L Alkaline Phosphatase 67 45-117 U/L Total Protein 6.2 6.4-8.2 gm/dl Albumin 2.7 3.4-5.0 gm/dl Lipase 187 73-393 U/L Microbiology Results 06/13/17 Urine Culture, Received Pending Diagnostic Radiology ABD/PELVIS NO IV OR ORAL CONT CT DOSE: 655.27 mGy.cm HISTORY: Pain eval for obs, pancreatitis, post-op comp TECHNIQUE: Multiaxial CT images of the abdomen and pelvis were performed without contrast. A dose lowering technique was utilized adhering to the principles of ALARA. COMPARISON STUDY: 06/04/2017 FINDINGS: Lung bases are generally clear. Liver and spleen remain unremarkable. Slight increase in edematous change of the pancreatic body and tail. Slight increase in peripancreatic infiltrative change. Multiple pancreatic calcifications unaltered from the prior study. Several reactive peripancreatic as well as mesenteric and retroperitoneal nodes. Mild infiltrative change of the perigastric region as compared to the prior study. The kidneys demonstrate a large cyst inferior pole right kidney. Bilateral nephrocalcinosis is unchanged. No evidence for hydronephrosis or obstructive nephrocalcinosis. 6 mm nonobstructing calcification within the left renal pelvis medially proximal to left ureteropelvic junction. The lower abdominal as well as pelvic bowel pattern is nonobstructive. Bladder is midline. There is no significant free fluid within the pelvic cul-de-sac. Patient is post prior cholecystectomy and hysterectomy. There is a small left anterior ventral hernia containing a short segment of colon. This is considered to be a nonobstructive finding. IMPRESSION: 1. Pancreatitis slightly increased in prominence compared to the prior study. 2. Peripancreatic infiltrative change has shown a slight degree of progression now with mild perigastric and left perinephric infiltrative change. 3. No evidence for abscess or collection. 4. 6 mm nonobstructing/minimally obstructing calculus within the left renal pelvis slightly proximal to the left ureteropelvic junction. The above report was generated using voice recognition software. It may contain grammatical, syntax or spelling errors. Electronically signed by: Haim Bal M.D. 06/13/2017 5:48 PM Dictated Date/Time: 06/13/2017 5:41 PM The status of this report is Signed. Draft = Not yet reviewed or approved by Radiologist. Signed = Reviewed and approved by Radiologist. EKG JAYSHREE SALEH ID:[id number] 13-JUN-2017 15:29:11 [facility] Atrial fibrillation with rapid ventricular response with premature ventricular or aberrantly conducted complexes Abnormal QRS-T angle, consider primary T wave abnormality Abnormal ECG When compared with ECG of 05-JUN-2017 09:29, No significant change was found 25mm/s 10mm/mV 150Hz 8.0 SP2 12SL 241 MITCH: 10 Referred by: Referred Self Unconfirmed Vent. rate 113 BPM MO interval * ms QRS duration 98 ms QT/QTc 332/455 ms P-R-T axes * 57 -48 1955 (61 yr) Female 70in 1lb Room: Loc:15 [employer] Operator:CARLI Li ind: Impression Assessment and Plan Patient is a pleasant 61 y/o female, with PMHx of h/o recurrent pancreatitis, h/ o pancreatic cancer s/p Whipple's in 2013, a. fib, CAD, T2DM, gout, tobacco use , and GERD, who presented to the ED because of worsening epispastic/L-sided abdominal pain. Acute pancreatitis , h/o recurrent pancreatitis, h/o pancreatic cancer s/p Whipple's in 2013, s/p celiac plexus injection on 06/09- follows w/ Dr. Murguia: - Admit to med/surg - NPO - LR @ 150 ml/hr - Compazine, Phenergan, Zofran PRN for nausea - Dilaudid COSTUME CUTTER pump - Abdominal CT w/ worsening pancreatitis - Lipase 187 - GI consulted, appreciate recommendations - Consult pain management, appreciate recommendations Hypokalemia: - EKG w/out changes - 40 mEq KCL supplement x1 in ED; will start 20 mEq TID and follow daily PRP A. fib- rate controlled, CAD- STABLE: - Continue Metoprolol, Digoxin, Cardizem, Coumadin 3.5 mg daily - Resume lipid lower agent once tolerating PO - Follow PT/INR and adjust dose PRN for INR goal 2-3- INR subtherapeutic at 1.4 , will give 5 mg tonight T2DM: - Decrease Lantus 44 u daily to 20 u daily while NPO - BSG ACHS and ISS Gout: Continue Allopurinol Tobacco Use: - Nicotine pain - Smoking cessation counselling GERD: Protonix + Carafate DVT prophylaxis: Coumadin Code status: LEVEL I, FULL Disposition: Patient from home, lives with her - no CM needs anticipated Resuscitation Status LEVEL I, FULL VTE Prophylaxis Will order VTE Prophylaxis: Yes
[2017-06-13] MEDS: SODIUM CHLORIDE 0.9% 1000ML 1,000 ML IV SCH (18:53)
[2017-06-13] MEDS ORDERED: HYDROmorphone HCL 0.5MG/ML 50 ML CASSETTE IV PRN (19:00)
[2017-06-13] MEDS: LACTATED RINGER'S 1000ML 1,000 ML IV SCH (19:00)
[2017-06-13] MEDS ORDERED: NALOXONE HCL 0.4 MG/1 ML VIAL/CARP IV PRN (19:00)
[2017-06-13] MEDS ORDERED: MAGNESIUM SULFATE 1GM / D5W 1 GM in PREMIXED IN D5W 100 ML IV ONE (19:15)
[2017-06-13] MEDS ORDERED: TRC145 PO (19:19)
[2017-06-13] MEDS ORDERED: VNTHFA/IN INH (19:37)
[2017-06-13] MEDS ORDERED: ALL100 PO (19:37)
[2017-06-13] MEDS ORDERED: DILT120C43 PO (19:37)
[2017-06-13] MEDS ORDERED: COLE1TAB PO (19:37)
[2017-06-13] MEDS ORDERED: PANT40TA2 PO (19:37)
[2017-06-13] MEDS ORDERED: INSU100I2 SQ ×2 (19:37→20:00)
[2017-06-13 19:38] VITALS: BP 115/73; PULSE 75; TEMP 36.5; O2SAT 94
[2017-06-13 19:39] VITALS: BP 115/73; PULSE 72; TEMP 36.5; BMI 25.9
[2017-06-13] MEDS ORDERED: GLUCAGON FOR INJ 1 MG VIAL SQ PRN (20:00)
[2017-06-13] MEDS ORDERED: DEXTROSE 50% 50 ML SYR IV PRN (20:00)
[2017-06-13] MEDS ORDERED: GLUCOSE 40% GEL 15 GM TUBE PO PRN (20:00)
[2017-06-13] MEDS ORDERED: GLUCOSE 10 TABS/TUBE PO PRN (20:00)
[2017-06-13] MEDS: WARFARIN PO SCH ×2 (21:00)
[2017-06-13] MEDS ORDERED: WARFARIN SOD 0.5 MG TAB PO ONE (21:00)
[2017-06-13] MEDS: INSULIN ASPART 100 UNITS/ML 3 ML PEN SC SCH (21:00)
[2017-06-13] MEDS: SUCRALFATE 1 GM TAB PO SCH (21:56)
[2017-06-13] MEDS: DILTIAZEM HCL 120 MG CAPCR PO SCH (21:56)
[2017-06-13] MEDS: MAGNESIUM OXIDE 400 MG TAB PO SCH (21:58)
[2017-06-13] MEDS: GABAPENTIN 100 MG CAP PO SCH (21:58)
[2017-06-13] MEDS: TRAZODONE HCL 100 MG TAB PO SCH (21:58)
[2017-06-13] MEDS: POTASSIUM CHLORIDE 20 MEQ TABCR PO SCH (21:58)
[2017-06-13] MEDS: METOPROLOL SUCC 25MG EXT REL TAB PO SCH (21:59)
[2017-06-14] VITALS (9 sets, daily range): BP systolic 97–135; BP diastolic 57–86; PULSE 46–82; TEMP 36.3–37.1; O2SAT 90–95; Ht 165.1 cm; Wt 70.7 kg
[2017-06-14] MEDS: LACTATED RINGER'S 1000ML 1,000 ML IV SCH ×4 (05:23→17:09)
[2017-06-14 07:59] LABS: HEMATOCRIT 39.3 % (37-47); MEAN CELL VOLUME 87.1 fL (80-100); MEAN CORPUSCULAR HEMOGLOBIN 28.8 pg (25-34); MEAN CORPUSCULAR HGB CONC 33.1 g/dl (32-36); MEAN PLATELET VOLUME 9.8 fL (7.4-10.4); PLATELET COUNT 209 K/uL (130-400); RED CELL DISTRIBUTION WIDTH CV 13.4 % (11.5-14.5); RED CELL DISTRIBUTION WIDTH SD 42.8 fL (36.4-46.3); WHITE BLOOD COUNT 6.85 K/uL (4.8-10.8)
[2017-06-14 08:08] LABS: INR 1.5 (0.9-1.1)
[2017-06-14] MEDS: INSULIN ASPART 100 UNITS/ML 3 ML PEN SC SCH ×4 (08:32→21:00)
[2017-06-14] MEDS: METOPROLOL SUCC 25MG EXT REL TAB PO SCH ×2 (08:38→21:00)
[2017-06-14] MEDS: ALLOPURINOL 100 MG TAB PO SCH (08:38)
[2017-06-14] MEDS: DILTIAZEM HCL 120 MG CAPCR PO SCH ×2 (08:38→21:00)
[2017-06-14 08:39] LABS: CALCIUM 9.5 mg/dl (8.5-10.1); CREATININE 0.45 mg/dl (0.60-1.20); POTASSIUM 3.5 mmol/L (3.5-5.1)
[2017-06-14] MEDS: MAGNESIUM OXIDE 400 MG TAB PO SCH ×2 (08:39→21:00)
[2017-06-14] MEDS: SUCRALFATE 1 GM TAB PO SCH ×4 (08:39→21:00)
[2017-06-14] MEDS: CYANOCOBALAMIN 500 MCG TAB (VIT B-12) PO SCH (08:39)
[2017-06-14] MEDS: CITALOPRAM 20 MG TAB PO SCH (08:40)
[2017-06-14] MEDS: GABAPENTIN 100 MG CAP PO SCH ×3 (08:40→21:00)
[2017-06-14] MEDS: PANTOprazole SOD 40 MG TAB PO SCH (08:41)
[2017-06-14 08:43] LABS: PHOSPHORUS 2.6 mg/dl (2.5-4.9)
[2017-06-14] MEDS: INSULIN GLARGINE SOLOSTAR 100 UNITS/ML 3 ML PEN SC SCH (08:43)
[2017-06-14] MEDS: NICOTINE 14 MG/24 HR TDSY TD SCH (08:44)
[2017-06-14] MEDS: POTASSIUM CHLORIDE 20 MEQ TABCR PO SCH ×3 (08:46→21:00)
[2017-06-14] MEDS ORDERED: WARFARIN SOD 3 MG TAB PO SCH (09:00)
[2017-06-14] MEDS ORDERED: INSULIN GLARGINE SOLOSTAR 100 UNITS/ML 3 ML PEN SC SCH (09:00)
[2017-06-14] MEDS ORDERED: LACTATED RINGER'S 1000ML 1,000 ML IV ONE (09:15)
--- NOTE | 2017-06-14 09:27 | Pain Clinic New Patient (H&P) ---
Pain Clinic New Patient Date of Service Jun 14, 2017. Chief Complaint Midepigastric and left upper quadrant abdominal pain Pain Location 1 - 2 - History of Present Illness Mrs. Torres is a 61-year-old white female who is known to the pain service with history of recurrent midepigastric abdominal pain secondary to pancreatitis with known history of pancreatic cancer status post Whipple procedure 2013. Patient underwent celiac plexus block last week on 06/09/[address] Lopez. Patient reported significant relief of her pain immediately after the procedure which had been sustained the time of discharge. Patient reported recurrence of pain over the weekend which became intractable in the midepigastric, left upper quadrant and left mid thoracic back which led to recurrent hospital admission yesterday 06/13/2017. Patient indicates her pain is similar in location, characteristic and severity as it was previously. She had responded to prior celiac plexus block for approximately 4-6 months duration completed in 2016. Patient utilizing Tylenol in the outpatient setting without relief of symptoms. Patient reports her pain is ranging between a 0-9/10 over the past 12 hours. She is utilizing LAUNCH CHECK OUT hydromorphone with adequate relief of pain. She is tolerating the LAUNCH CHECK OUT hydromorphone with moderate sedation. She continues to experience nausea with diminished appetite. Patient denies other constitutional complaints at today's visit. Plan of care discussed with Dr. Chelsey Lopez. Past Medical/Surgical History (1) Dehydration (2) Right sided abdominal pain (3) Left sided abdominal pain (4) UTI (urinary tract infection) (5) Acute on chronic pancreatitis (6) Hypokalemia (7) Pancreatitis (8) Diffuse abdominal pain (9) Heart disease (10) HTN (hypertension) (11) Kidney disease (12) Kidney stone (13) Aneurysm (14) Constipation (15) Abdominal pain (16) Pancreatic cancer (17) Abdominal pain (18) Renal colic (19) Diverticulitis (20) Hyperglycemia (21) A-fib (22) Kidney stones (23) Hx of cholecystectomy (24) Hx of appendectomy Social / Work History Smoking Status: Current Every Day Smoker Smokeless Tobacco Use: No Alcohol Use: No Drug Use: none Marital Status: Housing Status: lives with family Occupation: unemployed Family History yes CAD, hypertension, nephrolithiasis, seizure disorder Home Medications Scheduled Allopurinol (Allopurinol), 100 MG PO DAILY Ascorbic Acid (Vitamin C), 2 TAB PO NOON Cholecalciferol (Vitamin D3), 1 TAB PO BID Citalopram (Citalopram Hydrobromide), 20 MG PO DAILY Colestipol Hcl (Colestid), 2 GM PO BID Cyanocobalamin (Vitamin B-12), 1,000 MCG PO QAM Digoxin (Digox), 125 MCG PO QAM Diltiazem Hcl Coated Beads (Cartia Xt), 120 MG PO BID Docusate Sodium (Colace), 1 CAP PO BID Fenofibrate (Fenofibrate), 145 MG PO QAM Fish Oil ([place]-3), 1 CAP PO QPM Gabapentin (Neurontin), 2 CAP PO TID Insulin Glargine (Lantus Solostar), 44 UNITS SC HS Insulin Lispro (Human) (Humalog Kwikpen), 22 UNITS SQ BID Insulin Lispro (Human) (Humalog Kwikpen), 20 UNITS SQ qsupper Magnesium Oxide (Mag-Ox), 400 MG PO BID Metoprolol Succinate (Metoprolol Succinate ER), 25 MG PO BID Naloxegol Oxalate (Movantik), 12.5 MG PO QPM Pancrelipase (Lipase-Protease- ([place] 70804), 2 CAP PO TIDM Pantoprazole (Pantoprazole Sodium), 40 MG PO DAILY Polyethylene Glycol 3350 (Miralax), 17 GM PO DAILY Sucralfate (Carafate), 1 GM PO QID Trazodone Hcl (Trazodone), 150 MG PO HS Warfarin Sodium (Coumadin), 3.5 MG PO DAILY Scheduled PRN Acetaminophen (Tylenol), 2 TAB PO Q6 PRN for Pain Albuterol Hfa (Ventolin Hfa), 2 PUFF INH QID PRN for SOB/Wheezing Hydrocodone/Acetaminophen 5MG/325MG ([place] 5MG/325MG), 1 TAB PO Q4H PRN for Pain Ondansetron Hcl (Zofran), 4 MG PO PC PRN for Nausea Allergies Coded Allergies: Iodinated Diagnostic Agents (Verified Allergy, Severe, HIVES, AIRWAY SWELLS FROM CT DYE, 01/18/17) Iodine (Verified Allergy, Severe, airway swells shut, 06/08/17) Azithromycin (Verified Allergy, Intermediate, RASH, 06/08/17) Ceftriaxone (Verified Allergy, Intermediate, RASH, 06/04/17) Adhesives (Verified Allergy, Mild, RASH AND SORE SKIN FROM TAPE ADHESIVES , 01/18/17) Alcohol (Verified Allergy, Unknown, hives, 01/18/17) no alcohol wipes Atorvastatin (Verified Allergy, Unknown, UNKNOWN, 01/18/17) Isopropyl Alcohol (Verified Allergy, Unknown, UNKNOWN, 01/18/17) Lemon Oil (Verified Allergy, Unknown, UNKNOWN, 01/18/17) Lorazepam (Verified Allergy, Unknown, RASH, 01/18/17) Morphine (Verified Allergy, Unknown, stops heart, 06/08/17) Ondansetron (Verified Allergy, Unknown, rash, 01/18/17) Rosuvastatin (Verified Allergy, Unknown, UNKNOWN, 01/18/17) Shellfish (Verified Allergy, Unknown, UNKNOWN, 01/18/17) Sulfamethoxazole w/Trimethoprim (Verified Allergy, Unknown, UNKNOWN, ) Ciprofloxacin (Verified Adverse Reaction, Unknown, INTERFERES WITH COUMADIN, 01/18/17) Ezetimibe (Verified Adverse Reaction, Unknown, RAPID HEART BEAT, 01/18/17) Gemfibrozil (Verified Adverse Reaction, Unknown, MYALGIAS, 01/18/17) Lovastatin (Verified Adverse Reaction, Unknown, MYALGIAS, 06/08/17) Tramadol (Verified Adverse Reaction, Unknown, CHEST TIGHTNESS, 01/18/17) Review of Systems Constitutional: Negative for fever, chills, sweats Eyes: Negative for eye pain, photophobia, drainage Ear, nose, mouth, throat: Negative for ear pain, nasal congestion, mouth lesions , change in voice Respiratory: Negative for wheezing, sputum production Cardiovascular: Negative for chest pain, palpitations, calf pain Gastrointestinal: Negative for abdominal pain, belching, bloating Genitourinary: Negative for dysuria, urinary incontinence, urinary urgency Musculoskeletal: Negative for deformities Integumentary: Negative for nail changes, skin yellowing, pruritus Neurological: Negative for abnormal speech, seizure type activity Physical Exam Date Time Temp Pulse Resp B/P (MAP) Pulse Ox O2 Delivery O2 Flow Rate FiO2 06/14/17 08:25 36.9 68 18 124/73 (90) 93 Room Air 06/14/17 04:31 74 95 Room Air 06/14/17 04:04 37.0 46 18 97/57 (70) 93 Room Air 06/14/17 00:20 Room Air 06/14/17 00:12 37.1 68 18 134/84 (101) 93 Room Air 06/13/17 19:39 36.5 72 18 115/73 Room Air 06/13/17 19:38 36.5 75 18 115/73 (87) 94 Room Air 06/13/17 19:03 36.6 85 18 140/71 99 06/13/17 18:58 85 140/71 06/13/17 16:35 82 18 06/13/17 16:31 136/79 06/13/17 16:30 85 16 06/13/17 16:25 87 16 06/13/17 16:20 99 19 06/13/17 16:15 93 13 06/13/17 16:10 88 18 06/13/17 16:05 92 16 06/13/17 16:01 133/90 06/13/17 16:00 90 17 06/13/17 15:55 93 20 06/13/17 15:50 88 20 06/13/17 15:45 91 15 06/13/17 15:40 108 15 06/13/17 15:35 108 16 06/13/17 15:31 134/85 06/13/17 15:30 120 19 06/13/17 15:25 120 17 06/13/17 15:21 126 06/13/17 15:20 117 24 06/13/17 15:15 111 25 06/13/17 15:07 111/84 06/13/17 15:07 36.6 124 24 111/84 99 Room Air Height 5 feet, 5.00 inches. Weight 70.700 (Kilograms) 155 (Pounds) General: Patient lying quietly upon entering the room in no acute distress. Speech and thought process appropriate. Mood and affect appropriate. Cognition intact. Chest: Nontender to palpation of the costosternal junction. Nontender along the anterior or lateral chest wall. Nontender with AP/lateral compression. Abdomen: Tenderness to palpation in the midepigastric left upper quadrant. Abdomen appears distended. Slightly tympanic. Extremities: Sensation intact without deficits. Strength 5/5 and equal. No evidence of edema, erythema or skin breakdown distally. Neurologic: Cranial nerves grossly intact. Ambulatory function not witness. Laboratory Laboratory Findings Test 06/05/17 09:35 06/13/17 16:14 06/13/17 18:00 06/14/17 06:22 Range/Units Troponin I < 0.015 0-0.045 ng/ml Immature Granulocyte % (Auto) 0.1 % White Blood Count 8.05 4.8-10.8 K/uL Red Blood Count 4.54 4.2-5.4 M/uL Hemoglobin 13.5 12.0-16.0 g/dL Hematocrit 39.1 37-47 % Mean Corpuscular Volume 86.1 80-100 fL Mean Corpuscular Hemoglobin 29.7 25-34 pg Mean Corpuscular Hemoglobin Concent 34.5 32-36 g/dl Platelet Count 219 130-400 K/uL Mean Platelet Volume 10.3 7.4-10.4 fL Neutrophils (%) (Auto) 53.2 % Lymphocytes (%) (Auto) 33.5 % Monocytes (%) (Auto) 11.9 % Eosinophils (%) (Auto) 1.1 % Basophils (%) (Auto) 0.2 % Neutrophils # (Auto) 4.27 1.4-6.5 K/uL Lymphocytes # (Auto) 2.70 1.2-3.4 K/uL Monocytes # (Auto) 0.96 H 0.11-0.59 K/uL Eosinophils # (Auto) 0.09 0-0.5 K/uL Basophils # (Auto) 0.02 0-0.2 K/uL Immature Granulocyte # (Auto) 0.01 0.00-0.02 K/uL PTT 27.3 21.0-31.0 SECONDS Partial Thromboplastin Ratio 1.1 Total Bilirubin 0.2 0.2-1 mg/dl Direct Bilirubin < 0.1 0-0.2 mg/dl Aspartate Amino Transferase (AST) 25 15-37 U/L Alanine Aminotransferase (ALT) 34 12-78 U/L Alkaline Phosphatase 67 45-117 U/L Total Protein 6.2 L 6.4-8.2 gm/dl Albumin 2.7 L 3.4-5.0 gm/dl Urine Color YELLOW Urine Appearance CLOUDY CLEAR Urine pH 7.5 4.5-7.5 Urine Specific [place] 1.017 1.000-1.030 Urine Protein NEG NEG Urine Glucose (UA) NEG NEG Urine Ketones NEG NEG Urine Occult Blood 3+ H NEG Urine Nitrite NEG NEG Urine Bilirubin NEG NEG Urine Urobilinogen NEG NEG Urine Leukocyte Esterase NEG NEG Urine WBC (Auto) 1-5 0-5 /hpf Urine RBC (Auto) >30 H 0-4 /hpf Urine Hyaline Casts (Auto) 0 0-5 /lpf Urine Epithelial Cells (Auto) 10-20 H 0-5 /lpf Urine Bacteria (Auto) NEG NEG POC Glucose 133 H 70-90 mg/dl Test 06/14/17 07:45 Range/Units White Blood Count 6.85 4.8-10.8 K/uL Red Blood Count 4.51 4.2-5.4 M/uL Hemoglobin 13.0 12.0-16.0 g/dL Hematocrit 39.3 37-47 % Mean Corpuscular Volume 87.1 80-100 fL Mean Corpuscular Hemoglobin 28.8 25-34 pg Mean Corpuscular Hemoglobin Concent 33.1 32-36 g/dl RDW Standard Deviation 42.8 36.4-46.3 fL RDW Coefficient of Variation 13.4 11.5-14.5 % Platelet Count 209 130-400 K/uL Mean Platelet Volume 9.8 7.4-10.4 fL Prothrombin Time 15.6 H 9.0-12.0 SECONDS Prothrombin Time INR 1.5 H 0.9-1.1 Sodium Level 141 136-145 mmol/L Potassium Level 3.5 # 3.5-5.1 mmol/L Chloride Level 108 H 98-107 mmol/L Carbon Dioxide Level 28 21-32 mmol/L Anion Gap 5.0 3-11 mmol/L Blood Urea Nitrogen 8 7-18 mg/dl Creatinine 0.45 L 0.60-1.20 mg/dl Est Creatinine Clear Calc Drug Dose 127.9 ml/min Estimated GFR () 124.5 Estimated GFR (Non- 107.4 BUN/Creatinine Ratio 16.9 10-20 Random Glucose 140 H 70-99 mg/dl Calcium Level 9.5 8.5-10.1 mg/dl Phosphorus Level 2.6 2.5-4.9 mg/dl Magnesium Level 1.9 1.8-2.4 mg/dl Lipase 189 73-393 U/L Imaging CT: reports reviewed CT Findings Patient: JAYSHREE TORRES Address1: [address] [facility] Rec: [id number] Address2: Acct ID: [id number] [facility] Zip: [place] [address] Date: 1955 Sex: F Room/Bed: Ref Phy: Michael Sepulveda M.D. SC: [place] Att Phy: Report #: [id number] Gabi Phy: Michael Sepulveda M.D. Test: APWO Admit Phy: Relay Dispatcher: BOB Interpreting Phy: Haim Bal M.D. Diagnosis: AB PAIN Ordering Phy: Dmitriy Giordano M.D. Service Date: 06/13/17 Admit Date: 06/13/17 MNE: [id number] CONF: DICTATED BY: Haim Bal M.D.]] CC: Michael Sepulveda M.D. Newcomb, Brian D., M.D. Endcc: [~ rep ct add3]] ABD/PELVIS NO IV OR ORAL CONT CT DOSE: 655.27 mGy.cm HISTORY: Pain eval for obs, pancreatitis, post-op comp TECHNIQUE: Multiaxial CT images of the abdomen and pelvis were performed without contrast. A dose lowering technique was utilized adhering to the principles of ALARA. COMPARISON STUDY: 06/04/2017 FINDINGS: Lung bases are generally clear. Liver and spleen remain unremarkable. Slight increase in edematous change of the pancreatic body and tail. Slight increase in peripancreatic infiltrative change. Multiple pancreatic calcifications unaltered from the prior study. Several reactive peripancreatic as well as mesenteric and retroperitoneal nodes. Mild infiltrative change of the perigastric region as compared to the prior study. The kidneys demonstrate a large cyst inferior pole right kidney. Bilateral nephrocalcinosis is unchanged. No evidence for hydronephrosis or obstructive nephrocalcinosis. 6 mm nonobstructing calcification within the left renal pelvis medially proximal to left ureteropelvic junction. The lower abdominal as well as pelvic bowel pattern is nonobstructive. Bladder is midline. There is no significant free fluid within the pelvic cul-de-sac. Patient is post prior cholecystectomy and hysterectomy. There is a small left anterior ventral hernia containing a short segment of colon. This is considered to be a nonobstructive finding. IMPRESSION: 1. Pancreatitis slightly increased in prominence compared to the prior study. 2. Peripancreatic infiltrative change has shown a slight degree of progression now with mild perigastric and left perinephric infiltrative change. 3. No evidence for abscess or collection. 4. 6 mm nonobstructing/minimally obstructing calculus within the left renal pelvis slightly proximal to the left ureteropelvic junction. The above report was generated using voice recognition software. It may contain grammatical, syntax or spelling errors. Electronically signed by: Haim Bal M.D. 06/13/2017 5:48 PM Dictated Date/Time: 06/13/2017 5:41 PM The status of this report is Signed. Draft = Not yet reviewed or approved by Radiologist. Signed = Reviewed and approved by Radiologist. <AttendingPhy></AttendingPhy> <FamilyPhy>Michael Sepulveda M.D.</FamilyPhy> < PrimaryPhy>Michael Sepulveda M.D.</PrimaryPhy> <UnitNumber>[id number]</UnitNumber > <VisitNumber>[id number] Assessment 1. Mid epigastric/left upper quadrant abdominal pain with history of acute pancreatitis/recurrent pancreatitis/pancreatic cancer status post Whipple procedure 2013 2. Atrial fibrillation on chronic anticoagulation therapy with Coumadin 3. Insulin-dependent diabetes mellitus Recommendations 1. Continue with LAUNCH CHECK OUT hydromorphone. Will conversion to fentanyl within the next 24-48 hours consider due to history of poor p.o. intake. 2. We briefly discussed pursuing celiac plexus block with neurolysis but will hold pending definitive GI evaluation regarding the possibility of recurrent pancreatic CA. Patient will also need to have INR of <1.1 to pursue interventional treatment moving forward. 3. Maintain gabapentin 200 mg 3 times daily 4. Will continue to follow Thank you for allowing us to participate in the care of Mrs. Torres
--- NOTE | 2017-06-14 12:15 | Gastrointestinal Consultation ---
Gastrointestinal Consultation Date of Consultation: Jun 14, 2017 Attending Physician: Michael Allison Consulting Physician: Calvin Gibson Reason for Consultation: Pancreatitis History of Present Illness Patient is a 61 year old female who was recently admitted from 06/04 to 06/12 for pancreatitis returned to ED yesterday w c/o n/v, diffuse abd pain similar to prior pancreatitis. She has hx of pancreatic ca s/p Whipple in 2013 done by [facility] hospital group. She had been followed by Dr. Claude Murguia at [facility]. She does have chronic abd pain and had celiac plexus block in 01/[address] Chelsey Lopez. Had repeat block at her last admission which resolved her pain symptoms almost immediately but doesn't last. Admission labs showed normal CBC, low K and mg now corrected. LFTs are normal, Lipase in 180s. CT abd/ pelvis w/o contrast: 1. Pancreatitis slightly increased in prominence compared to the prior study. 2. Peripancreatic infiltrative change has shown a slight degree of progression now with mild perigastric and left perinephric infiltrative change. 3. No evidence for abscess or collection. 4. 6 mm nonobstructing/minimally obstructing calculus within the left renal pelvis slightly proximal to the left ureteropelvic junction. Past Medical/Surgical History Medical Problems: (1) Back pain Status: Acute (2) Diffuse abdominal pain Status: Acute (3) Flank pain Status: Acute (4) Hypokalemia Status: Acute (5) Left flank pain Status: Acute (6) Pancreatitis Status: Acute (7) UTI (urinary tract infection) Status: Acute Past Medical History: Medical Problems: Acute pancreatitis h/o recurrent pancreatitis h/o pancreatic cancer s/p Whipple's in 2013 Constipation A. fib CAD E. coli UTI- pansensitive T2DM Gout Tobacco Use GERD Past Surgical History: Surgical Problems: (1) Hx of appendectomy (2) Hx of cholecystectomy Family History FH: cancer FH: heart disease Hypertension Kidney disease Kidney stones Seizures Social History Smoking Status: Current Every Day Smoker Alcohol Use: none Drug Use: none Marital Status: Housing Status: lives with family Occupation Status: unemployed Allergies Coded Allergies: Iodinated Diagnostic Agents (Verified Allergy, Severe, HIVES, AIRWAY SWELLS FROM CT DYE, 01/18/17) Iodine (Verified Allergy, Severe, airway swells shut, 06/08/17) Azithromycin (Verified Allergy, Intermediate, RASH, 06/08/17) Ceftriaxone (Verified Allergy, Intermediate, RASH, 06/04/17) Adhesives (Verified Allergy, Mild, RASH AND SORE SKIN FROM TAPE ADHESIVES , 01/18/17) Alcohol (Verified Allergy, Unknown, hives, 01/18/17) no alcohol wipes Atorvastatin (Verified Allergy, Unknown, UNKNOWN, 01/18/17) Isopropyl Alcohol (Verified Allergy, Unknown, UNKNOWN, 01/18/17) Lemon Oil (Verified Allergy, Unknown, UNKNOWN, 01/18/17) Lorazepam (Verified Allergy, Unknown, RASH, 01/18/17) Morphine (Verified Allergy, Unknown, stops heart, 06/08/17) Ondansetron (Verified Allergy, Unknown, rash, 01/18/17) Rosuvastatin (Verified Allergy, Unknown, UNKNOWN, 01/18/17) Shellfish (Verified Allergy, Unknown, UNKNOWN, 01/18/17) Sulfamethoxazole w/Trimethoprim (Verified Allergy, Unknown, UNKNOWN, ) Ciprofloxacin (Verified Adverse Reaction, Unknown, INTERFERES WITH COUMADIN, 01/18/17) Ezetimibe (Verified Adverse Reaction, Unknown, RAPID HEART BEAT, 01/18/17) Gemfibrozil (Verified Adverse Reaction, Unknown, MYALGIAS, 01/18/17) Lovastatin (Verified Adverse Reaction, Unknown, MYALGIAS, 06/08/17) Tramadol (Verified Adverse Reaction, Unknown, CHEST TIGHTNESS, 01/18/17) Current Medications Home Meds and Scripts Medications Dose Route/Sig Max Daily Dose Days Date Category Dose Instructions Colace (Docusate Sodium) 100 Mg Cap 1 Cap PO BID 30 06/13/17 Reported Citalopram Hydrobromide (Citalopram) 20 Mg Tab 20 Mg PO DAILY 06/13/17 Reported Zofran (Ondansetron HCl) 4 Mg Tab 4 Mg PO PC PRN 06/10/17 Rx Milburn 5MG/325MG (Acetaminophen/Hydrocodone Bitart) Tab 1 Tab PO Q4H PRN 3 06/09/17 Rx PRN PAIN Neurontin (Gabapentin) 100 Mg Cap 2 Cap PO TID 30 06/09/17 Rx Humalog Kwikpen (Insulin Lispro (Human)) 100 Unit/Ml Inj 20 Units SQ QSUPPER 06/04/17 Reported Pantoprazole Sodium (Pantoprazole) 40 Mg Tab 40 Mg PO DAILY 06/04/17 Reported Metoprolol Succinate ER (Metoprolol Succinate) 25 Mg Tabcr 25 Mg PO BID 06/04/17 Reported Colestid (Colestipol Hcl) 1 Gm Tab 2 Gm PO BID 06/04/17 Reported Cartia Xt (Diltiazem Hcl Coated Beads) 120 Mg Cap 120 Mg PO BID 06/04/17 Reported Allopurinol 100 Mg Tab 100 Mg PO DAILY 06/04/17 Reported Ventolin Hfa (Albuterol) 200 Puffs/49362 Mcg Aers 2 Puff INH QID PRN 06/04/17 Reported Humalog Kwikpen (Insulin Lispro (Human)) 100 Unit/Ml Inj 22 Units SQ BID 06/04/17 Reported take with breakfast & lunch Tylenol (Acetaminophen) 500 Mg Tab 2 Tab PO Q6 PRN 2 01/18/17 Reported Vitamin C (Ascorbic Acid) 500 Mg Tab 2 Tab PO NOON 12/21/16 Reported Coumadin (Warfarin Sodium) 3 Mg Tab 3.5 Mg PO DAILY 11/23/[address] JAY Miralax (Polyethylene Glycol 3350) 1 Pow Pow 17 Gm PO DAILY 11/23/16 Reported Stanton-3 (Fish Oil) 1 Ea Cap 1 Cap PO QPM 11/23/16 Reported Movantik (Naloxegol Oxalate) 12.5 Mg Tab 12.5 Mg PO QPM 11/23/16 Reported Creon 03877 (Pancrelipase (Lipase-Protease-) 1 Cap Cap 2 Cap PO TIDM 11/23/16 Reported Digox (Digoxin) 125 Mcg Tab 125 Mcg PO QAM 11/23/16 Reported Vitamin B-12 (Cyanocobalamin) 1,000 Mcg Tab 1,000 Mcg PO QAM 11/23/16 Reported Vitamin D3 (Cholecalciferol) 2,000 Unit Tab 1 Tab PO BID 11/23/16 Reported Mag-Ox (Magnesium Oxide) 400 Mg Tab 400 Mg PO BID 03/26/16 Reported Lantus Solostar (Insulin Glargine) 100 Unit/Ml Inj 44 Units SC HS 03/26/16 Reported Carafate (Sucralfate) 1 Gm Tab 1 Gm PO QID 03/26/16 Reported DISSOLVE TABLET INTO 4OZ OF WATER FOUR TIMES DAILY Fenofibrate 145 Mg Tab 145 Mg PO QAM 06/09/15 Reported Trazodone (Trazodone HCl) 50 Mg Tab 150 Mg PO HS 06/09/15 Reported Review of Systems Constitutional: No fever, No chills Respiratory: No cough, No shortness of breath Cardiac: No chest pain, No edema Abdomen: + pain, + nausea, + vomiting Skin: No rash, No itch, No jaundice Physical Exam Date Time Temp Pulse Resp B/P (MAP) Pulse Ox O2 Delivery O2 Flow Rate FiO2 06/14/17 08:25 36.9 68 18 124/73 (90) 93 Room Air 06/14/17 08:05 95 Room Air 06/14/17 04:31 74 95 Room Air 06/14/17 04:04 37.0 46 18 97/57 (70) 93 Room Air 06/14/17 00:20 Room Air 06/14/17 00:12 37.1 68 18 134/84 (101) 93 Room Air 06/13/17 19:39 36.5 72 18 115/73 Room Air 06/13/17 19:38 36.5 75 18 115/73 (87) 94 Room Air 06/13/17 19:03 36.6 85 18 140/71 99 06/13/17 18:58 85 140/71 06/13/17 16:35 82 18 06/13/17 16:31 136/79 06/13/17 16:30 85 16 06/13/17 16:25 87 16 06/13/17 16:20 99 19 06/13/17 16:15 93 13 06/13/17 16:10 88 18 06/13/17 16:05 92 16 06/13/17 16:01 133/90 06/13/17 16:00 90 17 06/13/17 15:55 93 20 06/13/17 15:50 88 20 06/13/17 15:45 91 15 06/13/17 15:40 108 15 06/13/17 15:35 108 16 06/13/17 15:31 134/85 06/13/17 15:30 120 19 06/13/17 15:25 120 17 06/13/17 15:21 126 06/13/17 15:20 117 24 06/13/17 15:15 111 25 06/13/17 15:07 111/84 06/13/17 15:07 36.6 124 24 111/84 99 Room Air General Appearance: + mild distress (c/o abd pain ) Eyes: normal inspection, PERRL, EOMI Neck: supple, no JVD, trachea midline Respiratory/Chest: normal breath sounds, no respiratory distress, no accessory muscle use Cardiovascular: regular rate, rhythm, no gallop, no murmur Abdomen: normal bowel sounds, soft, + tenderness (diffuse ) Neurologic/Psych: alert, normal mood/affect, oriented x 3 Skin: normal color, no jaundice, no rash Laboratory Results Last 24 Hours Test 06/13/17 16:14 06/13/17 18:00 06/13/17 20:29 06/14/17 00:09 White Blood Count 8.05 K/uL Red Blood Count 4.54 M/uL Hemoglobin 13.5 g/dL Hematocrit 39.1 % Mean Corpuscular Volume 86.1 fL Mean Corpuscular Hemoglobin 29.7 pg Mean Corpuscular Hemoglobin Concent 34.5 g/dl Platelet Count 219 K/uL Mean Platelet Volume 10.3 fL Neutrophils (%) (Auto) 53.2 % Lymphocytes (%) (Auto) 33.5 % Monocytes (%) (Auto) 11.9 % Eosinophils (%) (Auto) 1.1 % Basophils (%) (Auto) 0.2 % Neutrophils # (Auto) 4.27 K/uL Lymphocytes # (Auto) 2.70 K/uL Monocytes # (Auto) 0.96 K/uL Eosinophils # (Auto) 0.09 K/uL Basophils # (Auto) 0.02 K/uL RDW Standard Deviation 42.0 fL RDW Coefficient of Variation 13.3 % Immature Granulocyte % (Auto) 0.1 % Immature Granulocyte # (Auto) 0.01 K/uL Prothrombin Time 14.9 SECONDS Prothromb Time International Ratio 1.4 Activated Partial Thromboplast Time 27.3 SECONDS Partial Thromboplastin Ratio 1.1 Sodium Level 141 mmol/L Potassium Level 2.6 mmol/L Chloride Level 109 mmol/L Carbon Dioxide Level 24 mmol/L Anion Gap 7.0 mmol/L Blood Urea Nitrogen 8 mg/dl Creatinine 0.49 mg/dl Est Creatinine Clear Calc Drug Dose 115.8 ml/min Estimated GFR () 121.0 Estimated GFR (Non- 104.4 BUN/Creatinine Ratio 17.0 Random Glucose 111 mg/dl Calcium Level 9.6 mg/dl Magnesium Level 1.7 mg/dl Total Bilirubin 0.2 mg/dl Direct Bilirubin < 0.1 mg/dl Aspartate Amino Transf (AST/SGOT) 25 U/L Alanine Aminotransferase (ALT/SGPT) 34 U/L Alkaline Phosphatase 67 U/L Total Protein 6.2 gm/dl Albumin 2.7 gm/dl Lipase 187 U/L Urine Color YELLOW Urine Appearance CLOUDY Urine pH 7.5 Urine Specific [place] 1.017 Urine Protein NEG Urine Glucose (UA) NEG Urine Ketones NEG Urine Occult Blood 3+ Urine Nitrite NEG Urine Bilirubin NEG Urine Urobilinogen NEG Urine Leukocyte Esterase NEG Urine WBC (Auto) 1-5 /hpf Urine RBC (Auto) >30 /hpf Urine Hyaline Casts (Auto) 0 /lpf Urine Epithelial Cells (Auto) 10-20 /lpf Urine Bacteria (Auto) NEG Bedside Glucose 124 mg/dl 136 mg/dl Test 06/14/17 06:22 06/14/17 07:45 Bedside Glucose 133 mg/dl White Blood Count 6.85 K/uL Red Blood Count 4.51 M/uL Hemoglobin 13.0 g/dL Hematocrit 39.3 % Mean Corpuscular Volume 87.1 fL Mean Corpuscular Hemoglobin 28.8 pg Mean Corpuscular Hemoglobin Concent 33.1 g/dl RDW Standard Deviation 42.8 fL RDW Coefficient of Variation 13.4 % Platelet Count 209 K/uL Mean Platelet Volume 9.8 fL Prothrombin Time 15.6 SECONDS Prothromb Time International Ratio 1.5 Sodium Level 141 mmol/L Potassium Level 3.5 mmol/L Chloride Level 108 mmol/L Carbon Dioxide Level 28 mmol/L Anion Gap 5.0 mmol/L Blood Urea Nitrogen 8 mg/dl Creatinine 0.45 mg/dl Est Creatinine Clear Calc Drug Dose 127.9 ml/min Estimated GFR () 124.5 Estimated GFR (Non- 107.4 BUN/Creatinine Ratio 16.9 Random Glucose 140 mg/dl Calcium Level 9.5 mg/dl Phosphorus Level 2.6 mg/dl Magnesium Level 1.9 mg/dl Lipase 189 U/L Impression Patient is a 61 year old female recently admitted for recurrent pancreatitis, admitted again for n/v, abd pain symptoms. Repeat CT showed worsening pancreatitis though Lipase is normalized in 180s now compared to 500s last week. She did have celiac plexus block by Pain Management last week which almost immediately resolved her n/v, pain symptoms. 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 - CL diet, advance slowly as tolerated to low fat diet. - LR @ 150ml/hr; add 1L LR bolus - Pain management already reconsulted; considering neurolysis. May want to avoid prolonged opioid or YARN SPINNER in this pt as she is at increased risk for ileus development with the pancreatitis. - Will obtain op records from [facility] from her Whipple Surgery - May want to consider EUS eval if not already done, outpt setting. She follows with Dr. Claude Murguia (GI) in [place] I performed a history and physical examination of the patient, including specifically on physical exam - no abdominal tenderness. I have discussed the patient's management with YARED Brannon. Please refer to the nurse practitioner's note for the documented findings and plan of care. Patient with Hx of chornic pancreatitis followed by Pancreatic cancer s/p Whipple. She follows at [facility] for her pancreatitis s/p Celiac plexus neurolysis. Currently I doubt she has acute pancreatitis and her pain seems to be chronic and related to her underlying chronic pancreatitis thought she needs evaluation of her PD for strictures or stones post Whipple if never been evaluated before. Please advance her diet now and avoid opioids. Can D/C if tolerates diet and close follow up with her GI provider.
--- NOTE | 2017-06-14 12:37 | Hospitalist Progress Note ---
Hospitalist Progress Note Date of Service Jun 14, 2017. Subjective Pt evaluation today including: conversation w/ patient, physical exam, chart review, lab review, review of studies, review of inpatient medication list Patient seen and evaluated. No acute events overnight. Patient reporting significant improvement with her pain but states she is very sleepy today. Is on Dilaudid TELETYPE OPERATOR pump at this time. Patient is mentating appropriately and no evidence of oversedation. Lipase remains WNL. Pain management and GI was in to see patient this AM. Constitutional: No fever, No chills Respiratory: No cough, No shortness of breath Cardiovascular: No chest pain Abdomen: + pain (better controlled), + nausea, No vomiting, No diarrhea, No constipation, No GI bleeding Musculoskeletal: No swelling, No calf pain Female : No dysuria, No urinary frequency Heme: No abnormal bleeding/bruising Medications Current Inpatient Medications Medications (Trade) Dose Ordered Sig/August Route Start Time Stop Time Status Last Admin Dose Admin Acetaminophen (Tylenol Tab) 650 mg Q4H PRN PO 06/13/17 18:30 07/13/17 18:29 Al Hydrox/Mg Hydrox/Simethicone (Maalox Max Susp) 15 ml Q4H PRN PO 06/13/17 18:30 07/13/17 18:29 Magnesium Hydroxide (Milk Of Magnesia Susp) 30 ml Q6H PRN PO 06/13/17 18:30 07/13/17 18:29 Polyethylene (Miralax Powder Packet) 17 gm DAILY PRN PO 06/13/17 18:30 07/13/17 18:29 Miscellaneous Information (Allergy Noted To Ordered Medication) 1 ea QS N/A 06/14/17 00:00 07/14/17 00:00 Nicotine (Nicoderm Cq 14MG Patch) 1 patch QAM TD 06/14/17 09:00 07/14/17 08:59 06/14/17 08:44 1 PATCH Miscellaneous (Remove Nicoderm Patch) 1 ea HS N/A 06/14/17 21:00 07/14/17 20:59 Albuterol (Ventolin Hfa Inhaler) 4 puffs QID PRN INH 06/13/17 18:30 07/13/17 18:29 Allopurinol (Zyloprim Tab) 100 mg DAILY PO 06/14/17 09:00 07/14/17 08:59 06/14/17 08:38 100 MG Citalopram Hydrobromide (celeXA TAB) 20 mg DAILY PO 06/14/17 09:00 07/14/17 08:59 06/14/17 08:40 20 MG Cyanocobalamin (Vitamin B-12 Tab) 1,000 mcg QAM PO 06/14/17 09:00 07/14/17 08:59 06/14/17 08:39 1,000 MCG Digoxin (Lanoxin Tab) 0.125 mg DAILY@1600 PO 06/14/17 16:00 07/14/17 15:59 Diltiazem HCl (Cardizem Cd Cap) 120 mg BID PO 06/13/17 21:00 07/13/17 20:59 06/14/17 08:38 120 MG Gabapentin (Neurontin Cap) 200 mg TID PO 06/13/17 21:00 07/13/17 20:59 06/14/17 08:40 200 MG Magnesium Oxide (Mag-Ox Tab) 400 mg BID PO 06/13/17 21:00 07/13/17 20:59 06/14/17 08:39 400 MG Metoprolol Succinate (Toprol Xl Tab) 25 mg BID PO 06/13/17 21:00 07/13/17 20:59 06/14/17 08:38 25 MG Pantoprazole Sodium (Protonix Tab) 40 mg DAILY PO 06/14/17 09:00 07/14/17 08:59 06/14/17 08:41 40 MG Sucralfate (Carafate Tab) 1 gm QID PO 06/13/17 21:00 07/13/17 20:59 06/14/17 08:39 1 GM Trazodone HCl (Desyrel Tab) 150 mg HS PO 06/13/17 21:00 07/13/17 20:59 06/13/17 21:58 150 MG Insulin Aspart (novoLOG ASPART) SLIDING SCALE G... ACHS SC 06/13/17 21:00 07/13/17 20:59 Lactated Ringer's 1,000 ml @ 150 mls/hr Q6H40M IV 06/13/17 19:00 07/13/17 18:59 06/14/17 10:20 150 MLS/HR Potassium Chloride (Klor-Con Tab) 20 meq TID PO 06/13/17 21:00 07/13/17 20:59 06/14/17 08:46 20 MEQ Promethazine HCl 12.5 mg/Sodium Chloride 50.5 ml @ 204 mls/hr Q6H PRN IV 06/13/17 18:45 07/13/17 18:44 Prochlorperazine Edisylate 5 mg/ Syringe 5 ml @ 5 mls/min Q6H PRN IV 06/13/17 18:45 07/13/17 18:44 06/14/17 05:23 5 MLS/MIN Insulin Glargine (Lantus Solostar Pen) 20 units DAILY SC 06/14/17 09:00 07/14/17 08:59 06/14/17 08:43 20 UNITS Naloxone HCl (Narcan Inj) 0.1 mg Q5M PRN IV 06/13/17 19:00 07/13/17 18:59 Hydromorphone HCl (Dilaudid Thread Laster) 25 mg PRN PRN IV 06/13/17 19:00 06/27/17 18:59 06/13/17 22:29 25 MG Sodium Chloride 1,000 ml @ 15 mls/hr Q24H IV 06/13/17 18:53 07/13/17 18:52 06/13/17 18:53 15 MLS/HR Glucose (Glucose 40% Gel) 15-30 GRAMS 15 GRAMS... UD PRN PO 06/13/17 20:00 07/13/17 19:59 Glucose (Glucose Chew Tab) 4-8 Tablets 4 Tabl... UD PRN PO 06/13/17 20:00 07/13/17 19:59 Dextrose (Dextrose 50% 50ML Syringe) 25-50ML OF 50% DW IV FOR... UD PRN IV 06/13/17 20:00 07/13/17 19:59 Glucagon (Glucagon Inj) 1 mg UD PRN SQ 06/13/17 20:00 07/13/17 19:59 Warfarin Sodium (Coumadin Tab) 3.5 mg DAILY@16 PO 06/13/17 21:00 07/13/17 20:59 06/13/17 21:00 3.5 MG Objective Vital Signs Date Time Temp Pulse Resp B/P (MAP) Pulse Ox O2 Delivery O2 Flow Rate FiO2 06/14/17 08:25 36.9 68 18 124/73 (90) 93 Room Air 06/14/17 08:05 95 Room Air 06/14/17 04:31 74 95 Room Air 06/14/17 04:04 37.0 46 18 97/57 (70) 93 Room Air 06/14/17 00:20 Room Air 06/14/17 00:12 37.1 68 18 134/84 (101) 93 Room Air 06/13/17 19:39 36.5 72 18 115/73 Room Air 06/13/17 19:38 36.5 75 18 115/73 (87) 94 Room Air 06/13/17 19:03 36.6 85 18 140/71 99 06/13/17 18:58 85 140/71 06/13/17 16:35 82 18 06/13/17 16:31 136/79 06/13/17 16:30 85 16 06/13/17 16:25 87 16 06/13/17 16:20 99 19 06/13/17 16:15 93 13 06/13/17 16:10 88 18 06/13/17 16:05 92 16 06/13/17 16:01 133/90 06/13/17 16:00 90 17 06/13/17 15:55 93 20 06/13/17 15:50 88 20 06/13/17 15:45 91 15 06/13/17 15:40 108 15 06/13/17 15:35 108 16 06/13/17 15:31 134/85 06/13/17 15:30 120 19 06/13/17 15:25 120 17 06/13/17 15:21 126 06/13/17 15:20 117 24 06/13/17 15:15 111 25 06/13/17 15:07 111/84 06/13/17 15:07 36.6 124 24 111/84 99 Room Air Physical Exam General Appearance: WD/WN, no apparent distress Eyes: sclerae normal ENT: hearing grossly normal Neck: supple, no JVD, trachea midline Respiratory/Chest: lungs clear, normal breath sounds, no respiratory distress, no accessory muscle use Cardiovascular: no gallop, no murmur, + irregularly irregular Abdomen: normal bowel sounds, soft, + tenderness Extremities: no pedal edema Neurologic/Psychiatric: alert Skin: normal color Laboratory Results Last 24 Hours Test 06/13/17 16:14 06/13/17 18:00 06/13/17 20:29 06/14/17 00:09 White Blood Count 8.05 K/uL Red Blood Count 4.54 M/uL Hemoglobin 13.5 g/dL Hematocrit 39.1 % Mean Corpuscular Volume 86.1 fL Mean Corpuscular Hemoglobin 29.7 pg Mean Corpuscular Hemoglobin Concent 34.5 g/dl Platelet Count 219 K/uL Mean Platelet Volume 10.3 fL Neutrophils (%) (Auto) 53.2 % Lymphocytes (%) (Auto) 33.5 % Monocytes (%) (Auto) 11.9 % Eosinophils (%) (Auto) 1.1 % Basophils (%) (Auto) 0.2 % Neutrophils # (Auto) 4.27 K/uL Lymphocytes # (Auto) 2.70 K/uL Monocytes # (Auto) 0.96 K/uL Eosinophils # (Auto) 0.09 K/uL Basophils # (Auto) 0.02 K/uL RDW Standard Deviation 42.0 fL RDW Coefficient of Variation 13.3 % Immature Granulocyte % (Auto) 0.1 % Immature Granulocyte # (Auto) 0.01 K/uL Prothrombin Time 14.9 SECONDS Prothromb Time International Ratio 1.4 Activated Partial Thromboplast Time 27.3 SECONDS Partial Thromboplastin Ratio 1.1 Sodium Level 141 mmol/L Potassium Level 2.6 mmol/L Chloride Level 109 mmol/L Carbon Dioxide Level 24 mmol/L Anion Gap 7.0 mmol/L Blood Urea Nitrogen 8 mg/dl Creatinine 0.49 mg/dl Est Creatinine Clear Calc Drug Dose 115.8 ml/min Estimated GFR () 121.0 Estimated GFR (Non- 104.4 BUN/Creatinine Ratio 17.0 Random Glucose 111 mg/dl Calcium Level 9.6 mg/dl Magnesium Level 1.7 mg/dl Total Bilirubin 0.2 mg/dl Direct Bilirubin < 0.1 mg/dl Aspartate Amino Transf (AST/SGOT) 25 U/L Alanine Aminotransferase (ALT/SGPT) 34 U/L Alkaline Phosphatase 67 U/L Total Protein 6.2 gm/dl Albumin 2.7 gm/dl Lipase 187 U/L Urine Color YELLOW Urine Appearance CLOUDY Urine pH 7.5 Urine Specific [place] 1.017 Urine Protein NEG Urine Glucose (UA) NEG Urine Ketones NEG Urine Occult Blood 3+ Urine Nitrite NEG Urine Bilirubin NEG Urine Urobilinogen NEG Urine Leukocyte Esterase NEG Urine WBC (Auto) 1-5 /hpf Urine RBC (Auto) >30 /hpf Urine Hyaline Casts (Auto) 0 /lpf Urine Epithelial Cells (Auto) 10-20 /lpf Urine Bacteria (Auto) NEG Bedside Glucose 124 mg/dl 136 mg/dl Test 06/14/17 06:22 06/14/17 07:45 Bedside Glucose 133 mg/dl White Blood Count 6.85 K/uL Red Blood Count 4.51 M/uL Hemoglobin 13.0 g/dL Hematocrit 39.3 % Mean Corpuscular Volume 87.1 fL Mean Corpuscular Hemoglobin 28.8 pg Mean Corpuscular Hemoglobin Concent 33.1 g/dl RDW Standard Deviation 42.8 fL RDW Coefficient of Variation 13.4 % Platelet Count 209 K/uL Mean Platelet Volume 9.8 fL Prothrombin Time 15.6 SECONDS Prothromb Time International Ratio 1.5 Sodium Level 141 mmol/L Potassium Level 3.5 mmol/L Chloride Level 108 mmol/L Carbon Dioxide Level 28 mmol/L Anion Gap 5.0 mmol/L Blood Urea Nitrogen 8 mg/dl Creatinine 0.45 mg/dl Est Creatinine Clear Calc Drug Dose 127.9 ml/min Estimated GFR () 124.5 Estimated GFR (Non- 107.4 BUN/Creatinine Ratio 16.9 Random Glucose 140 mg/dl Calcium Level 9.5 mg/dl Phosphorus Level 2.6 mg/dl Magnesium Level 1.9 mg/dl Lipase 189 U/L Assessment and Plan Patient is a pleasant 61 y/o female, with PMHx of h/o recurrent pancreatitis, h/ o pancreatic cancer s/p Whipple's in 2013, a. fib, CAD, T2DM, gout, tobacco use , and GERD, who presented to the ED because of worsening epispastic/L-sided abdominal pain. Acute and Recurrent Pancreatitis with Normal Enzymes - H/O Pancreatic CA S/P Whipple (2013): - S/P Celiac plexus injection on 06/09 which she reports helped but currently not sustained - CT confirmation and clinical picture supports worsening of her pancreatitis even in setting of normal enzyme levels - Currently placed on Dilaudid TELETYPE OPERATOR; pain management following and recommending to continue TELETYPE OPERATOR at this time with plans to convert to Fentanyl in next 24-48 hrs ; consideration for celiac plexus block with neurolysis in the future; maintain gabapentin 200 mg TID - Clear liquid diet; Continue LR 150 mL/hr until oral intake confirmed - GI following - appreciate recommendations Persistent Atrial Fibrillation: Rate Controlled - Intermittent bradycardia - considering outpatient pacer implantation - Digoxin 0.125 mg daily; Cardizem 120 mg BID; Toprol XL 25 mg BID - Warfarin 3.5 mg daily - continue to trend INR - currently subtherapeutic at 1.5 T2DM: - Lantus 20 units SC daily - will monitor intake and adjust - Cover with SSI as well GERD: - Protonix 40 mg daily and Carafate QID Tobacco Use: Continue to encourage cessation DVT Prophylaxis: Coumadin Code Status: FULL RESUSCITATION Disposition: Monitor oral intake and transition off pain pump Continued [facility] stay due to: multiple IV medications needed Discharge planning: home
[2017-06-14] MEDS: DIGOXIN 0.125 MG TAB PO SCH (15:49)
[2017-06-14] MEDS: WARFARIN PO SCH ×2 (15:49)
[2017-06-14] MEDS: TRAZODONE HCL 100 MG TAB PO SCH (21:00)
[2017-06-15] MEDS: LACTATED RINGER'S 1000ML 1,000 ML IV SCH ×4 (00:33→22:20)
[2017-06-15 07:14] VITALS: BP 150/93; PULSE 67; TEMP 36.8; O2SAT 93
[2017-06-15 08:00] VITALS: O2SAT 93
[2017-06-15] MEDS: PROMETHAZINE HCL INJ 12.5 MG in SODIUM CHLORIDE 0.9% 50ML 50 ML IV PRN ×2 (08:18→16:14)
[2017-06-15 08:44] LABS: HEMATOCRIT 38.6 % (37-47); HEMOGLOBIN 13.3 g/dL (12.0-16.0); MEAN CELL VOLUME 86.5 fL (80-100); MEAN CORPUSCULAR HEMOGLOBIN 29.8 pg (25-34); MEAN CORPUSCULAR HGB CONC 34.5 g/dl (32-36); MEAN PLATELET VOLUME 10.1 fL (7.4-10.4); PLATELET COUNT 208 K/uL (130-400); RED CELL DISTRIBUTION WIDTH CV 13.4 % (11.5-14.5); RED CELL DISTRIBUTION WIDTH SD 42.6 fL (36.4-46.3); WHITE BLOOD COUNT 6.53 K/uL (4.8-10.8)
[2017-06-15 08:51] LABS: INR 2.1 (0.9-1.1)
[2017-06-15 09:09] LABS: CREATININE 0.44 mg/dl (0.60-1.20); POTASSIUM 3.8 mmol/L (3.5-5.1)
[2017-06-15] MEDS: PANTOprazole SOD 40 MG TAB PO SCH (10:02)
[2017-06-15] MEDS: ALLOPURINOL 100 MG TAB PO SCH (10:02)
[2017-06-15] MEDS: METOPROLOL SUCC 25MG EXT REL TAB PO SCH ×2 (10:03→21:10)
[2017-06-15] MEDS: SUCRALFATE 1 GM TAB PO SCH ×4 (10:04→21:06)
[2017-06-15] MEDS: DILTIAZEM HCL 120 MG CAPCR PO SCH ×2 (10:04→21:09)
[2017-06-15] MEDS: POTASSIUM CHLORIDE 20 MEQ TABCR PO SCH ×3 (10:04→21:09)
[2017-06-15] MEDS: CYANOCOBALAMIN 500 MCG TAB (VIT B-12) PO SCH (10:05)
[2017-06-15] MEDS: MAGNESIUM OXIDE 400 MG TAB PO SCH ×2 (10:05→21:09)
[2017-06-15] MEDS: CITALOPRAM 20 MG TAB PO SCH (10:06)
[2017-06-15] MEDS: INSULIN ASPART 100 UNITS/ML 3 ML PEN SC SCH ×4 (10:09→21:00)
[2017-06-15] MEDS: NICOTINE 14 MG/24 HR TDSY TD SCH (10:11)
[2017-06-15] MEDS: INSULIN GLARGINE SOLOSTAR 100 UNITS/ML 3 ML PEN SC SCH (10:11)
--- NOTE | 2017-06-15 11:07 | Gastroenterology Progress Note ---
Progress Note Date of Service: Jun 15, 2017 Subjective Pt evaluation today including: conversation w/ patient, physical exam, chart review, lab review, review of studies, review of inpatient medication list Ms. Torres is a 61 yr old female with a hx of pancreatic cancer S/P Whipple in 2014 at [facility], followed by [facility] in [place]. She has chronic pancreatitis and was admitted for increased pain. CT with slightly increased inflammation compared to prior. She was doing well yesterday but this morning after eating breakfast experienced increased abdominal pain. LFTs and Lipase normal. Review of Systems Constitutional: No fever ENT: No hearing loss Respiratory: No cough Cardiac: No chest pain Abdomen: + pain, No nausea, No vomiting, No diarrhea, No constipation, No GI bleeding Female : No dysuria Neuro: No memory loss Psych: No depression symptoms Heme: No abnormal bleeding/bruising Endo: + fatigue Skin: No rash, No jaundice Medications Current Inpatient Medications Medications (Trade) Dose Ordered Sig/August Route Start Time Stop Time Status Last Admin Dose Admin Acetaminophen (Tylenol Tab) 650 mg Q4H PRN PO 06/13/17 18:30 07/13/17 18:29 Al Hydrox/Mg Hydrox/Simethicone (Maalox Max Susp) 15 ml Q4H PRN PO 06/13/17 18:30 07/13/17 18:29 Magnesium Hydroxide (Milk Of Magnesia Susp) 30 ml Q6H PRN PO 06/13/17 18:30 07/13/17 18:29 Polyethylene (Miralax Powder Packet) 17 gm DAILY PRN PO 06/13/17 18:30 07/13/17 18:29 Miscellaneous Information (Allergy Noted To Ordered Medication) 1 ea QS N/A 06/14/17 00:00 07/14/17 00:00 Nicotine (Nicoderm Cq 14MG Patch) 1 patch QAM TD 06/14/17 09:00 07/14/17 08:59 06/15/17 10:11 1 PATCH Miscellaneous (Remove Nicoderm Patch) 1 ea HS N/A 06/14/17 21:00 07/14/17 20:59 Albuterol (Ventolin Hfa Inhaler) 4 puffs QID PRN INH 06/13/17 18:30 07/13/17 18:29 Allopurinol (Zyloprim Tab) 100 mg DAILY PO 06/14/17 09:00 07/14/17 08:59 06/15/17 10:02 100 MG Citalopram Hydrobromide (celeXA TAB) 20 mg DAILY PO 06/14/17 09:00 07/14/17 08:59 06/15/17 10:06 20 MG Cyanocobalamin (Vitamin B-12 Tab) 1,000 mcg QAM PO 06/14/17 09:00 07/14/17 08:59 06/15/17 10:05 1,000 MCG Digoxin (Lanoxin Tab) 0.125 mg DAILY@1600 PO 06/14/17 16:00 07/14/17 15:59 Diltiazem HCl (Cardizem Cd Cap) 120 mg BID PO 06/13/17 21:00 07/13/17 20:59 06/15/17 10:04 120 MG Magnesium Oxide (Mag-Ox Tab) 400 mg BID PO 06/13/17 21:00 07/13/17 20:59 06/15/17 10:05 400 MG Metoprolol Succinate (Toprol Xl Tab) 25 mg BID PO 06/13/17 21:00 07/13/17 20:59 06/15/17 10:03 25 MG Pantoprazole Sodium (Protonix Tab) 40 mg DAILY PO 06/14/17 09:00 07/14/17 08:59 06/15/17 10:02 40 MG Sucralfate (Carafate Tab) 1 gm QID PO 06/13/17 21:00 07/13/17 20:59 06/15/17 10:04 1 GM Trazodone HCl (Desyrel Tab) 150 mg HS PO 06/13/17 21:00 07/13/17 20:59 06/13/17 21:58 150 MG Insulin Aspart (novoLOG ASPART) SLIDING SCALE G... ACHS SC 06/13/17 21:00 07/13/17 20:59 06/15/17 10:09 2 UNITS Lactated Ringer's 1,000 ml @ 150 mls/hr Q6H40M IV 06/13/17 19:00 07/13/17 18:59 06/15/17 00:33 150 MLS/HR Potassium Chloride (Klor-Con Tab) 20 meq TID PO 06/13/17 21:00 07/13/17 20:59 06/15/17 10:04 20 MEQ Promethazine HCl 12.5 mg/Sodium Chloride 50.5 ml @ 204 mls/hr Q6H PRN IV 06/13/17 18:45 07/13/17 18:44 06/15/17 08:18 204 MLS/HR Prochlorperazine Edisylate 5 mg/ Syringe 5 ml @ 5 mls/min Q6H PRN IV 06/13/17 18:45 07/13/17 18:44 06/14/17 05:23 5 MLS/MIN Insulin Glargine (Lantus Solostar Pen) 20 units DAILY SC 06/14/17 09:00 07/14/17 08:59 06/15/17 10:11 20 UNITS Naloxone HCl (Narcan Inj) 0.1 mg Q5M PRN IV 06/13/17 19:00 07/13/17 18:59 Hydromorphone HCl (Dilaudid Sales Incentive Analyst) 25 mg PRN PRN IV 06/13/17 19:00 06/27/17 18:59 06/13/17 22:29 25 MG Sodium Chloride 1,000 ml @ 15 mls/hr Q24H IV 06/13/17 18:53 07/13/17 18:52 06/13/17 18:53 15 MLS/HR Glucose (Glucose 40% Gel) 15-30 GRAMS 15 GRAMS... UD PRN PO 06/13/17 20:00 07/13/17 19:59 Glucose (Glucose Chew Tab) 4-8 Tablets 4 Tabl... UD PRN PO 06/13/17 20:00 07/13/17 19:59 Dextrose (Dextrose 50% 50ML Syringe) 25-50ML OF 50% DW IV FOR... UD PRN IV 06/13/17 20:00 07/13/17 19:59 Glucagon (Glucagon Inj) 1 mg UD PRN SQ 06/13/17 20:00 07/13/17 19:59 Warfarin Sodium (Coumadin Tab) 3.5 mg DAILY@16 PO 06/13/17 21:00 07/13/17 20:59 06/14/17 15:49 3.5 MG Gabapentin (Neurontin Cap) 300 mg TID PO 06/15/17 14:00 07/13/17 13:59 Tapentadol (Nucynta Er Tab) 50 mg Q12 PO 06/15/17 09:00 07/15/17 08:59 Objective Vital Signs Date Time Temp Pulse Resp B/P (MAP) Pulse Ox O2 Delivery O2 Flow Rate FiO2 06/15/17 07:14 36.8 67 18 150/93 (112) 93 Room Air 06/15/17 00:00 Room Air 06/14/17 23:13 36.5 82 22 135/86 (102) 90 Room Air 06/14/17 20:00 Room Air 06/14/17 16:13 36.4 67 22 110/65 (80) 94 Room Air 06/14/17 16:00 94 Room Air 06/14/17 15:49 57 06/14/17 13:17 36.3 58 18 121/73 (89) 94 Room Air Physical Exam General Appearance: + moderate distress Neck: supple, no adenopathy, no JVD Respiratory/Chest: lungs clear Cardiovascular: regular rate, rhythm, no JVD, no murmur Abdomen: soft, + tenderness (very tender over entire abdomen, worse in the upper abdomen) Neurologic/Psych: alert, normal mood/affect, oriented x 3 Skin: no jaundice Laboratory Results Last 24 Hours Test 06/14/17 11:49 06/14/17 16:44 06/14/17 20:01 06/15/17 07:54 Bedside Glucose 118 mg/dl 158 mg/dl 207 mg/dl 169 mg/dl Test 06/15/17 08:29 White Blood Count 6.53 K/uL Red Blood Count 4.46 M/uL Hemoglobin 13.3 g/dL Hematocrit 38.6 % Mean Corpuscular Volume 86.5 fL Mean Corpuscular Hemoglobin 29.8 pg Mean Corpuscular Hemoglobin Concent 34.5 g/dl RDW Standard Deviation 42.6 fL RDW Coefficient of Variation 13.4 % Platelet Count 208 K/uL Mean Platelet Volume 10.1 fL Prothrombin Time 21.6 SECONDS Prothromb Time International Ratio 2.1 Sodium Level 138 mmol/L Potassium Level 3.8 mmol/L Chloride Level 108 mmol/L Carbon Dioxide Level 26 mmol/L Anion Gap 5.0 mmol/L Blood Urea Nitrogen 5 mg/dl Creatinine 0.44 mg/dl Est Creatinine Clear Calc Drug Dose 130.8 ml/min Estimated GFR () 125.4 Estimated GFR (Non- 108.2 BUN/Creatinine Ratio 11.6 Random Glucose 211 mg/dl Calcium Level 10.0 mg/dl Assessment and Plan Ms. Torres is a 61 yr old female with abdominal pain from chronic pancreatitis S/P whipple for pancreas cancer. Plan: 1. OR reports from 2013 Whipple were requested from [facility] yesterday morning and again this morning. 2. Because pt has increased pain and therfor unlikely to be able to be discharged soon, dependent on the pt's anatomy (based on how the Whipple was completed), we could possibly offer EUS, then if pancreatic duct stone is present (dependent on pt anatomy), we could possibly provide ERCP. 3. Appreciate Primary Hospitalist and Pain Service management of pain. 4. Will continue to follow. I performed a history and physical examination of the patient, including specifically on physical exam - no abdominal tenderness. I have discussed the patient's management with YARED Yang. Please refer to the nurse practitioner's note for the documented findings and plan of care. Patient was feeling better yesterday and tolerated PO diet. Today she has recurrent abdominal pain, no nausea or vomiting. Labs normal. This is typical for chronic pancreatitis pain. Recommend Pain Mx, usually Tramadol and Gabapentin works. Need to review prior operative records. Based on anatomy may consider EUS to evaluate her PD in details. If anatomy is compatible with regular scope, she needs to follow up back at [facility] to consider advanced endoscopy. Continue supportive care for now.
--- NOTE | 2017-06-15 12:15 | Pain Management Progress Note ---
Pain Management Progress Note Date of Service Jun 15, 2017. Subjective Mrs. Torres is a 61-year-old white female who is known to the pain service with history of recurrent midepigastric abdominal pain secondary to pancreatitis with known history of pancreatic cancer status post Whipple procedure 2013. Patient underwent celiac plexus block last week on 06/09/2017. Patient reported significant relief of her pain immediately after the procedure which had been sustained the time of discharge. Patient reported recurrence of pain over the weekend which became intractable in the midepigastric, left upper quadrant and left mid thoracic back which led to recurrent hospital admission . Yesterday her pain had improved until after eating breakfast when it became severe again. She reports pain is midepigastric with radiation through to her back. Pain is range between 0 and 10 out of 10 over the last 24 hours with adequate relief of pain utilizing her hydromorphone INSURANCE COMPLIANCE ANALYST. She reports minimal sedation side effects from her INSURANCE COMPLIANCE ANALYST at this time.She continues to experience nausea with diminished appetite. Patient denies other constitutional complaints. Objective Vital Signs: Last Vital Signs Documentation Date Time Temp Pulse Resp B/P (MAP) Pulse Ox O2 Delivery O2 Flow Rate FiO2 06/15/17 08:00 93 Room Air 06/15/17 07:14 36.8 67 18 150/93 (112) Physical Exam: General: Patient lying quietly upon entering the room in no acute distress. Speech and thought process appropriate. Mood and affect appropriate. Cognition intact. A joint discussion between gastroenterology and myself took place in front of the patient. Abdomen: Tenderness to palpation in the midepigastric left upper quadrant. Abdomen appears distended. Slightly tympanic. Extremities: Sensation intact without deficits. Strength grossly 5/5 and equal in all extremities. No evidence of edema, erythema or skin breakdown distally. Neurologic: Cranial nerves are grossly intact. Ambulatory function not witness. Laboratory Laboratory Findings 06/15/17 08:29 Assessment 1. Mid epigastric/left upper quadrant abdominal pain with history of acute pancreatitis/recurrent pancreatitis/pancreatic cancer status post Whipple procedure 2013 2. Atrial fibrillation on chronic anticoagulation therapy with Coumadin 3. Insulin-dependent diabetes mellitus Recommendations 1. Continue with INSURANCE COMPLIANCE ANALYST hydromorphone. Added Nucynta extended release 50 mg p.o. every 12 today. Tramadol is not an option as she has a prior adverse reaction with chest pain in tramadol dosing. 2. Discussed pursuing celiac plexus block with neurolysis but will hold pending definitive GI evaluation. I do not want to perform this prematurely without knowing if anything interventionally may be performed from a gastroenterology standpoint due to the strong possibility of deafferentation pain that occurs with celiac block neurolysis and recurrence of pain. 3. Increase increase to gabapentin 300 mg 3 times daily 4. Will continue to follow.
[2017-06-15] MEDS: TAPENTADOL ER 50 MG TABCR PO SCH ×2 (12:40→21:00)
--- NOTE | 2017-06-15 14:16 | Hospitalist Progress Note ---
Hospitalist Progress Note Date of Service Jun 15, 2017. Subjective Pt evaluation today including: conversation w/ patient, physical exam, chart review, lab review, review of studies, review of inpatient medication list Patient seen and evaluated. Patient is expressing significant pain in the L abdomen. Pain was doing well until having solid foods and pain was back to level that brought her in. Patient also states she doesn't like to use the Dilaudid pump because she knows that will prevent her from going home. Reviewed pump flow sheet and she rarely utilizes this. Expressed to her that when the pain increases to use it before the pain becomes unbearable. Explained that the pump will not let her take pain medication too much and when we can get this better controlled. UCx with enterococcus faecalis which is surprising given her UA was rather unremarkable. Will repeat UA and Cx She is afebrile and without leukocytosis but may be reasonable to treat with a short course for any possible contribution to her pain Constitutional: No fever, No chills Respiratory: No cough, No shortness of breath Cardiovascular: No chest pain Abdomen: + pain, + nausea, No vomiting, No diarrhea, No constipation Musculoskeletal: No swelling, No calf pain Female : + dysuria Heme: No abnormal bleeding/bruising Skin: No rash Medications Current Inpatient Medications Medications (Trade) Dose Ordered Sig/August Route Start Time Stop Time Status Last Admin Dose Admin Acetaminophen (Tylenol Tab) 650 mg Q4H PRN PO 06/13/17 18:30 07/13/17 18:29 Al Hydrox/Mg Hydrox/Simethicone (Maalox Max Susp) 15 ml Q4H PRN PO 06/13/17 18:30 07/13/17 18:29 Magnesium Hydroxide (Milk Of Magnesia Susp) 30 ml Q6H PRN PO 06/13/17 18:30 07/13/17 18:29 Polyethylene (Miralax Powder Packet) 17 gm DAILY PRN PO 06/13/17 18:30 07/13/17 18:29 Miscellaneous Information (Allergy Noted To Ordered Medication) 1 ea QS N/A 06/14/17 00:00 07/14/17 00:00 Nicotine (Nicoderm Cq 14MG Patch) 1 patch QAM TD 06/14/17 09:00 07/14/17 08:59 06/15/17 10:11 1 PATCH Miscellaneous (Remove Nicoderm Patch) 1 ea HS N/A 06/14/17 21:00 07/14/17 20:59 Albuterol (Ventolin Hfa Inhaler) 4 puffs QID PRN INH 06/13/17 18:30 07/13/17 18:29 Allopurinol (Zyloprim Tab) 100 mg DAILY PO 06/14/17 09:00 07/14/17 08:59 06/15/17 10:02 100 MG Citalopram Hydrobromide (celeXA TAB) 20 mg DAILY PO 06/14/17 09:00 07/14/17 08:59 06/15/17 10:06 20 MG Cyanocobalamin (Vitamin B-12 Tab) 1,000 mcg QAM PO 06/14/17 09:00 07/14/17 08:59 06/15/17 10:05 1,000 MCG Digoxin (Lanoxin Tab) 0.125 mg DAILY@1600 PO 06/14/17 16:00 07/14/17 15:59 Diltiazem HCl (Cardizem Cd Cap) 120 mg BID PO 06/13/17 21:00 07/13/17 20:59 06/15/17 10:04 120 MG Magnesium Oxide (Mag-Ox Tab) 400 mg BID PO 06/13/17 21:00 07/13/17 20:59 06/15/17 10:05 400 MG Metoprolol Succinate (Toprol Xl Tab) 25 mg BID PO 06/13/17 21:00 07/13/17 20:59 06/15/17 10:03 25 MG Pantoprazole Sodium (Protonix Tab) 40 mg DAILY PO 06/14/17 09:00 07/14/17 08:59 06/15/17 10:02 40 MG Sucralfate (Carafate Tab) 1 gm QID PO 06/13/17 21:00 07/13/17 20:59 06/15/17 16:52 1 GM Trazodone HCl (Desyrel Tab) 150 mg HS PO 06/13/17 21:00 07/13/17 20:59 06/13/17 21:58 150 MG Insulin Aspart (novoLOG ASPART) SLIDING SCALE G... ACHS SC 06/13/17 21:00 07/13/17 20:59 06/15/17 12:45 9 UNITS Lactated Ringer's 1,000 ml @ 150 mls/hr Q6H40M IV 06/13/17 19:00 07/13/17 18:59 06/15/17 15:17 150 MLS/HR Potassium Chloride (Klor-Con Tab) 20 meq TID PO 06/13/17 21:00 07/13/17 20:59 06/15/17 14:24 20 MEQ Promethazine HCl 12.5 mg/Sodium Chloride 50.5 ml @ 204 mls/hr Q6H PRN IV 06/13/17 18:45 07/13/17 18:44 06/15/17 16:14 204 MLS/HR Prochlorperazine Edisylate 5 mg/ Syringe 5 ml @ 5 mls/min Q6H PRN IV 06/13/17 18:45 07/13/17 18:44 06/14/17 05:23 5 MLS/MIN Insulin Glargine (Lantus Solostar Pen) 20 units DAILY SC 06/14/17 09:00 07/14/17 08:59 06/15/17 10:11 20 UNITS Naloxone HCl (Narcan Inj) 0.1 mg Q5M PRN IV 06/13/17 19:00 07/13/17 18:59 Hydromorphone HCl (Dilaudid Administrative Library Assistant) 25 mg PRN PRN IV 06/13/17 19:00 06/27/17 18:59 06/13/17 22:29 25 MG Sodium Chloride 1,000 ml @ 15 mls/hr Q24H IV 06/13/17 18:53 07/13/17 18:52 06/13/17 18:53 15 MLS/HR Glucose (Glucose 40% Gel) 15-30 GRAMS 15 GRAMS... UD PRN PO 06/13/17 20:00 07/13/17 19:59 Glucose (Glucose Chew Tab) 4-8 Tablets 4 Tabl... UD PRN PO 06/13/17 20:00 07/13/17 19:59 Dextrose (Dextrose 50% 50ML Syringe) 25-50ML OF 50% DW IV FOR... UD PRN IV 06/13/17 20:00 07/13/17 19:59 Glucagon (Glucagon Inj) 1 mg UD PRN SQ 06/13/17 20:00 07/13/17 19:59 Warfarin Sodium (Coumadin Tab) 3.5 mg DAILY@16 PO 06/13/17 21:00 07/13/17 20:59 06/15/17 16:43 3.5 MG Gabapentin (Neurontin Cap) 300 mg TID PO 06/15/17 14:00 07/13/17 13:59 06/15/17 14:26 300 MG Tapentadol (Nucynta Er Tab) 50 mg Q12 PO 06/15/17 09:00 07/15/17 08:59 06/15/17 12:40 50 MG Objective Vital Signs Date Time Temp Pulse Resp B/P (MAP) Pulse Ox O2 Delivery O2 Flow Rate FiO2 06/15/17 08:00 93 Room Air 06/15/17 07:14 36.8 67 18 150/93 (112) 93 Room Air 06/15/17 00:00 Room Air 06/14/17 23:13 36.5 82 22 135/86 (102) 90 Room Air 06/14/17 20:00 Room Air 06/14/17 16:13 36.4 67 22 110/65 (80) 94 Room Air 06/14/17 16:00 94 Room Air 06/14/17 15:49 57 Physical Exam General Appearance: + mild distress (pain response) Eyes: sclerae normal ENT: hearing grossly normal Neck: supple, no JVD, trachea midline Respiratory/Chest: lungs clear, normal breath sounds, no respiratory distress, no accessory muscle use Cardiovascular: regular rate, rhythm, no gallop, no murmur Abdomen: normal bowel sounds, + tenderness Neurologic/Psychiatric: alert Skin: normal color Laboratory Results Last 24 Hours Test 06/14/17 16:44 06/14/17 20:01 06/15/17 07:54 06/15/17 08:29 Bedside Glucose 158 mg/dl 207 mg/dl 169 mg/dl White Blood Count 6.53 K/uL Red Blood Count 4.46 M/uL Hemoglobin 13.3 g/dL Hematocrit 38.6 % Mean Corpuscular Volume 86.5 fL Mean Corpuscular Hemoglobin 29.8 pg Mean Corpuscular Hemoglobin Concent 34.5 g/dl RDW Standard Deviation 42.6 fL RDW Coefficient of Variation 13.4 % Platelet Count 208 K/uL Mean Platelet Volume 10.1 fL Prothrombin Time 21.6 SECONDS Prothromb Time International Ratio 2.1 Sodium Level 138 mmol/L Potassium Level 3.8 mmol/L Chloride Level 108 mmol/L Carbon Dioxide Level 26 mmol/L Anion Gap 5.0 mmol/L Blood Urea Nitrogen 5 mg/dl Creatinine 0.44 mg/dl Est Creatinine Clear Calc Drug Dose 130.8 ml/min Estimated GFR () 125.4 Estimated GFR (Non- 108.2 BUN/Creatinine Ratio 11.6 Random Glucose 211 mg/dl Calcium Level 10.0 mg/dl Test 06/15/17 11:19 Bedside Glucose 283 mg/dl Assessment and Plan Patient is a pleasant 61 y/o female, with PMHx of h/o recurrent pancreatitis, h/ o pancreatic cancer s/p Whipple's in 2013, a. fib, CAD, T2DM, gout, tobacco use , and GERD, who presented to the ED because of worsening epispastic/L-sided abdominal pain. Acute and Recurrent Pancreatitis with Normal Enzymes - H/O Pancreatic CA S/P Whipple (2013): - S/P Celiac plexus injection on 06/09 which she reports helped but currently not sustained - CT confirmation and clinical picture supports worsening of her pancreatitis even in setting of normal enzyme levels - Currently placed on Dilaudid BUS GIRL; pain management following and recommending to continue BUS GIRL at this time with plans to convert to Fentanyl in next 24-48 hrs ; consideration for celiac plexus block with neurolysis in the future; increased gabapentin to 300 mg TID; Added Nucynta - Patient rarely utilizing pump as she states she knows if she needs to use it she will have to stay longer - did discuss with her that we need to get her pain under control and it is ok to utilize instead of letting pain get to 10/10 and trying to play catch-up with pain - hopefully with Nucynta this will help - Full diet; Reduce LR to maintenance dose of 80 mL/hr - GI following - appreciate recommendations - possible EUS and ERCP Enterococcus UTI: - Surprisingly UA was largely unremarkable but cx with 100,000 colonies with urinary symptoms intermittently - even though afebrile and without leukocytosis will treat as this may be some component of her pain? - However, do to allergies there are limitations and she is hesitant to utilize Cipro given its interaction with Coumadin -- Will start Macrobid and assess for improvement - renal function adequate to get appropriate absorption and effect and given lack of systemic effects may be appropriate to treat simple cystitis Persistent Atrial Fibrillation: Rate Controlled - Intermittent bradycardia - considering outpatient pacer implantation - Digoxin 0.125 mg daily; Cardizem 120 mg BID; Toprol XL 25 mg BID - Warfarin 3.5 mg daily - continue to trend INR - currently therapeutic at 2.1 T2DM: - Lantus 20 units SC daily - will monitor intake and adjust - Cover with SSI as well GERD: - Protonix 40 mg daily and Carafate QID Tobacco Use: Continue to encourage cessation DVT Prophylaxis: Coumadin Code Status: FULL RESUSCITATION Disposition: Suspect this will be a slow recovery as solid food intake quickly brought on pain Continued [facility] stay due to: inadequate po fluid intake, inadequate oral pain control Discharge planning: home
[2017-06-15] MEDS: GABAPENTIN 300 MG CAP PO SCH ×2 (14:26→21:09)
[2017-06-15] MEDS: SODIUM CHLORIDE 0.9% 1000ML 1,000 ML IV SCH (14:27)
[2017-06-15 16:00] VITALS: O2SAT 93
[2017-06-15 16:03] VITALS: BP 118/74; PULSE 80; TEMP 36.4; O2SAT 93
[2017-06-15] MEDS: DIGOXIN 0.125 MG TAB PO SCH (16:42)
[2017-06-15] MEDS: WARFARIN PO SCH ×2 (16:43)
[2017-06-15] MEDS ORDERED: DiphenhydrAMINE INJ 25 MG in SYRINGE 0 ML IV PRN (17:15)
[2017-06-15] MEDS ORDERED: DiphenhydrAMINE HCL 50 MG/ML VIAL IV PRN (18:15)
[2017-06-15] MEDS ORDERED: AMOXICILLIN 500 MG CAP PO SCH (21:00)
[2017-06-15] MEDS: TRAZODONE HCL 100 MG TAB PO SCH (21:09)
[2017-06-15] MEDS: NITROFURANTOIN MONOHYDRATE 100 MG CAP PO SCH (21:09)
[2017-06-15 23:37] VITALS: BP 115/72; PULSE 85; TEMP 36.3; O2SAT 95
[2017-06-16 07:21] LABS: HEMATOCRIT 41.4 % (37-47); HEMOGLOBIN 13.6 g/dL (12.0-16.0); MEAN CELL VOLUME 87.3 fL (80-100); MEAN CORPUSCULAR HEMOGLOBIN 28.7 pg (25-34); MEAN CORPUSCULAR HGB CONC 32.9 g/dl (32-36); MEAN PLATELET VOLUME 10.3 fL (7.4-10.4); PLATELET COUNT 229 K/uL (130-400); RED CELL DISTRIBUTION WIDTH CV 13.4 % (11.5-14.5); WHITE BLOOD COUNT 7.01 K/uL (4.8-10.8)
[2017-06-16 07:29] VITALS: BP 120/77; PULSE 70; TEMP 36.5; O2SAT 97
[2017-06-16 07:29] LABS: INR 2.3 (0.9-1.1)
[2017-06-16] MEDS ORDERED: TAPENTADOL HCL 50 MG TAB PO PRN (07:45)
[2017-06-16 07:46] LABS: CALCIUM 10.2 mg/dl (8.5-10.1); CREATININE 0.53 mg/dl (0.60-1.20); POTASSIUM 3.9 mmol/L (3.5-5.1)
[2017-06-16] MEDS: CYANOCOBALAMIN 500 MCG TAB (VIT B-12) PO SCH (07:52)
[2017-06-16] MEDS: NITROFURANTOIN MONOHYDRATE 100 MG CAP PO SCH (07:52)
[2017-06-16] MEDS: MAGNESIUM OXIDE 400 MG TAB PO SCH (07:52)
[2017-06-16] MEDS: POTASSIUM CHLORIDE 20 MEQ TABCR PO SCH ×2 (07:52→13:53)
[2017-06-16] MEDS: CITALOPRAM 20 MG TAB PO SCH (07:52)
[2017-06-16] MEDS: ALLOPURINOL 100 MG TAB PO SCH (07:53)
[2017-06-16] MEDS: PANTOprazole SOD 40 MG TAB PO SCH (07:53)
[2017-06-16] MEDS: DILTIAZEM HCL 120 MG CAPCR PO SCH (07:53)
[2017-06-16] MEDS: METOPROLOL SUCC 25MG EXT REL TAB PO SCH (07:53)
[2017-06-16] MEDS: GABAPENTIN 300 MG CAP PO SCH ×2 (07:53→13:53)
[2017-06-16] MEDS: SUCRALFATE 1 GM TAB PO SCH ×2 (07:53→13:53)
[2017-06-16] MEDS: INSULIN ASPART 100 UNITS/ML 3 ML PEN SC SCH ×2 (07:59→12:14)
[2017-06-16] MEDS: INSULIN GLARGINE SOLOSTAR 100 UNITS/ML 3 ML PEN SC SCH (08:01)
[2017-06-16] MEDS: NICOTINE 14 MG/24 HR TDSY TD SCH (08:02)
--- NOTE | 2017-06-16 08:52 | Pain Management Progress Note ---
Pain Management Progress Note Date of Service Jun 16, 2017. Subjective Patient reporting improved pain control over the past 24 hours with initiation of Nucynta ER 50 mg every 12 hours. Patient reported dietary intake last evening without increase in abdominal pain. Her abdominal pain remains minimal and she is reporting rare use of FLAVOR ROOM WORKER hydromorphone for breakthrough pain. Her pain is currently minimal in the midepigastric location. Patient rates her pain at a 0-7/10. She denies change in location or characteristic as it remains in the midepigastric region with radiation towards the left upper quadrant and back. She has not experienced side effects from Nucynta ER dosing. She expresses a strong desire to return home as she feels her pain is with improved control. She denies any associated nausea at this time. She has not eaten breakfast at the time of today's visit. Patient has no further constitutional complaints. Plan of care discussed with Dr. Chelsey Lopez. Objective Vital Signs: Last Vital Signs Documentation Date Time Temp Pulse Resp B/P (MAP) Pulse Ox O2 Delivery O2 Flow Rate FiO2 06/16/17 07:29 36.5 70 18 120/77 (91) 97 Room Air Physical Exam: General: Patient sitting up in chair quietly in exam room in no acute distress. Speech and thought process appropriate. Mood and affect appropriate. Cognition intact. Abdomen: Soft with minimal distention. Minimally tender in the midepigastric location without rebound or guarding. Neurologic: Cranial nerves grossly intact. Ambulatory function not witness. Laboratory Laboratory Findings 06/16/17 07:00 Assessment 1. Mid epigastric/left upper quadrant abdominal pain with history of acute pancreatitis/recurrent pancreatitis/pancreatic cancer status post Whipple procedure 2013 2. Atrial fibrillation on chronic anticoagulation therapy with Coumadin 3. Insulin-dependent diabetes mellitus Recommendations 1. We will discontinue FLAVOR ROOM WORKER hydromorphone 2. Will add Nucynta IR 50 mg every 4 hours as needed breakthrough pain 3. Maintain Nucynta ER 50 mg every 12 hours 4. Maintain gabapentin 300 mg 3 times daily 5. Continue to defer celiac plexus block with neurolysis at this time. Patient may follow-up in the outpatient pain clinic upon discharge for ongoing care.
--- NOTE | 2017-06-16 08:59 | Gastroenterology Progress Note ---
Progress Note Date of Service: Jun 16, 2017 Subjective Pt evaluation today including: conversation w/ patient, physical exam, chart review, lab review, review of studies, review of inpatient medication list Ms. Torres is a 61 yr old female with a hx of pancreatic cancer S/P Whipple in 2013 at [facility], followed by [facility] in [place]. She has chronic pancreatitis and was admitted for increased pain. CT with slightly increased inflammation compared to prior. Was doing well Monday but yesterday increased pain after eating. Improved through the day yesterday and tolerated a full liquid diet for supper and breakfast (today) without pain. Today: feels well. No pain unless pressing on the LUQ. Tells me she is back to her baseline and wishes D/C today. Surgical records requested from [facility] (2013) but not obtained yet. Review of Systems Constitutional: No fever Respiratory: No cough Cardiac: No chest pain Abdomen: + see HPI, + pain, No nausea, No vomiting, No diarrhea, No constipation, No GI bleeding, No jaundice, No dark urine Musculoskeletal: No joint pain Female : No dysuria Neuro: No memory loss Psych: No depression symptoms Heme: No abnormal bleeding/bruising Endo: + fatigue Medications Current Inpatient Medications Medications (Trade) Dose Ordered Sig/August Route Start Time Stop Time Status Last Admin Dose Admin Acetaminophen (Tylenol Tab) 650 mg Q4H PRN PO 06/13/17 18:30 07/13/17 18:29 Al Hydrox/Mg Hydrox/Simethicone (Maalox Max Susp) 15 ml Q4H PRN PO 06/13/17 18:30 07/13/17 18:29 Magnesium Hydroxide (Milk Of Magnesia Susp) 30 ml Q6H PRN PO 06/13/17 18:30 07/13/17 18:29 Polyethylene (Miralax Powder Packet) 17 gm DAILY PRN PO 06/13/17 18:30 07/13/17 18:29 Miscellaneous Information (Allergy Noted To Ordered Medication) 1 ea QS N/A 06/14/17 00:00 07/14/17 00:00 06/16/17 07:51 1 EA Nicotine (Nicoderm Cq 14MG Patch) 1 patch QAM TD 06/14/17 09:00 07/14/17 08:59 06/16/17 08:02 1 PATCH Miscellaneous (Remove Nicoderm Patch) 1 ea HS N/A 06/14/17 21:00 07/14/17 20:59 06/15/17 21:06 1 EA Albuterol (Ventolin Hfa Inhaler) 4 puffs QID PRN INH 06/13/17 18:30 07/13/17 18:29 Allopurinol (Zyloprim Tab) 100 mg DAILY PO 06/14/17 09:00 07/14/17 08:59 06/16/17 07:53 100 MG Citalopram Hydrobromide (celeXA TAB) 20 mg DAILY PO 06/14/17 09:00 07/14/17 08:59 06/16/17 07:52 20 MG Cyanocobalamin (Vitamin B-12 Tab) 1,000 mcg QAM PO 06/14/17 09:00 07/14/17 08:59 06/16/17 07:52 1,000 MCG Digoxin (Lanoxin Tab) 0.125 mg DAILY@1600 PO 06/14/17 16:00 07/14/17 15:59 Diltiazem HCl (Cardizem Cd Cap) 120 mg BID PO 06/13/17 21:00 07/13/17 20:59 06/16/17 07:53 120 MG Magnesium Oxide (Mag-Ox Tab) 400 mg BID PO 06/13/17 21:00 07/13/17 20:59 06/16/17 07:52 400 MG Metoprolol Succinate (Toprol Xl Tab) 25 mg BID PO 06/13/17 21:00 07/13/17 20:59 06/16/17 07:53 25 MG Pantoprazole Sodium (Protonix Tab) 40 mg DAILY PO 06/14/17 09:00 07/14/17 08:59 06/16/17 07:53 40 MG Sucralfate (Carafate Tab) 1 gm QID PO 06/13/17 21:00 07/13/17 20:59 06/16/17 07:53 1 GM Trazodone HCl (Desyrel Tab) 150 mg HS PO 06/13/17 21:00 07/13/17 20:59 06/15/17 21:09 150 MG Insulin Aspart (novoLOG ASPART) SLIDING SCALE G... ACHS SC 06/13/17 21:00 07/13/17 20:59 06/16/17 07:59 3 UNITS Lactated Ringer's 1,000 ml @ 80 mls/hr [id number] IV 06/13/17 19:00 07/13/17 18:59 06/15/17 22:20 80 MLS/HR Potassium Chloride (Klor-Con Tab) 20 meq TID PO 06/13/17 21:00 07/13/17 20:59 06/16/17 07:52 20 MEQ Promethazine HCl 12.5 mg/Sodium Chloride 50.5 ml @ 204 mls/hr Q6H PRN IV 06/13/17 18:45 07/13/17 18:44 06/15/17 16:14 204 MLS/HR Prochlorperazine Edisylate 5 mg/ Syringe 5 ml @ 5 mls/min Q6H PRN IV 06/13/17 18:45 07/13/17 18:44 06/14/17 05:23 5 MLS/MIN Insulin Glargine (Lantus Solostar Pen) 20 units DAILY SC 06/14/17 09:00 07/14/17 08:59 06/16/17 08:01 20 UNITS Glucose (Glucose 40% Gel) 15-30 GRAMS 15 GRAMS... UD PRN PO 06/13/17 20:00 07/13/17 19:59 Glucose (Glucose Chew Tab) 4-8 Tablets 4 Tabl... UD PRN PO 06/13/17 20:00 07/13/17 19:59 Dextrose (Dextrose 50% 50ML Syringe) 25-50ML OF 50% DW IV FOR... UD PRN IV 06/13/17 20:00 07/13/17 19:59 Glucagon (Glucagon Inj) 1 mg UD PRN SQ 06/13/17 20:00 07/13/17 19:59 Warfarin Sodium (Coumadin Tab) 3.5 mg DAILY@16 PO 06/13/17 21:00 07/13/17 20:59 06/15/17 16:43 3.5 MG Gabapentin (Neurontin Cap) 300 mg TID PO 06/15/17 14:00 07/13/17 13:59 06/16/17 07:53 300 MG Tapentadol (Nucynta Er Tab) 50 mg Q12 PO 06/15/17 09:00 07/15/17 08:59 06/15/17 21:00 50 MG Nitrofurantoin Macrocrystals (Macrobid Cap) 100 mg BID PO 06/15/17 21:00 06/20/17 20:59 06/16/17 07:52 100 MG Diphenhydramine HCl (Benadryl Inj) 25 mg Q8H PRN IV 06/15/17 18:15 07/15/17 18:14 Tapentadol (Nucynta Tab) 50 mg Q4H PRN PO 06/16/17 07:45 07/16/17 07:44 Objective Vital Signs Date Time Temp Pulse Resp B/P (MAP) Pulse Ox O2 Delivery O2 Flow Rate FiO2 06/16/17 07:29 36.5 70 18 120/77 (91) 97 Room Air 06/16/17 00:00 Room Air 06/15/17 23:37 36.3 85 19 115/72 (86) 95 Room Air 06/15/17 16:42 56 06/15/17 16:03 36.4 80 18 118/74 (89) 93 Room Air 06/15/17 16:00 93 Room Air Physical Exam General Appearance: no apparent distress ENT: pharynx normal Neck: no JVD Respiratory/Chest: lungs clear Cardiovascular: regular rate, rhythm, no JVD, no murmur Abdomen: normal bowel sounds, soft, + tenderness (moderate in the LUQ) Extremities: no pedal edema Neurologic/Psych: alert, normal mood/affect, oriented x 3 Skin: no jaundice Laboratory Results Last 24 Hours Test 06/15/17 11:19 06/15/17 15:50 06/15/17 16:35 06/15/17 20:13 Bedside Glucose 283 mg/dl 138 mg/dl 148 mg/dl Urine Color YELLOW Urine Appearance CLEAR Urine pH 7.0 Urine Specific [place] 1.011 Urine Protein NEG Urine Glucose (UA) NEG Urine Ketones NEG Urine Occult Blood NEG Urine Nitrite NEG Urine Bilirubin NEG Urine Urobilinogen NEG Urine Leukocyte Esterase TRACE Urine WBC (Auto) 5-10 /hpf Urine RBC (Auto) 0-4 /hpf Urine Hyaline Casts (Auto) 1-5 /lpf Urine Epithelial Cells (Auto) >30 /lpf Urine Bacteria (Auto) NEG Test 06/16/17 07:00 White Blood Count 7.01 K/uL Red Blood Count 4.74 M/uL Hemoglobin 13.6 g/dL Hematocrit 41.4 % Mean Corpuscular Volume 87.3 fL Mean Corpuscular Hemoglobin 28.7 pg Mean Corpuscular Hemoglobin Concent 32.9 g/dl RDW Standard Deviation 43.0 fL RDW Coefficient of Variation 13.4 % Platelet Count 229 K/uL Mean Platelet Volume 10.3 fL Prothrombin Time 23.4 SECONDS Prothromb Time International Ratio 2.3 Sodium Level 138 mmol/L Potassium Level 3.9 mmol/L Chloride Level 105 mmol/L Carbon Dioxide Level 29 mmol/L Anion Gap 4.0 mmol/L Blood Urea Nitrogen 5 mg/dl Creatinine 0.53 mg/dl Est Creatinine Clear Calc Drug Dose 108.6 ml/min Estimated GFR () 117.9 Estimated GFR (Non- 101.8 BUN/Creatinine Ratio 10.0 Random Glucose 159 mg/dl Calcium Level 10.2 mg/dl Assessment and Plan Ms. Torres is a 61 yr old female with abdominal pain from chronic pancreatitis S/P distant Whipple for pancreas cancer. Plan: 1. Because pt's pain is much better this morning, no plans to do any GI procedures. Our offer to consider EUS/ERCP was because she was in too much pain for discharge. Now that she is feeling well, it would be better to allow discharge and regular f/u with her [facility] gastroenterologists and surgeons. Also, no [facility] surgical records were obtained thus far so dependent on exact surgical procedure that had been completed, still, we may not have been able to offer EUS /ERCP. 2. Increase to regular consistency low fat diet. If tolerates eating lunch, then no GI contraindication to discharge. 3. GI will sign off. Please notify us if new/worrisome GI issues. I performed a history and physical examination of the patient, including specifically on physical exam - no abdominal tenderness. I have discussed the patient's management with YARED Yang. Please refer to the nurse practitioner's note for the documented findings and plan of care. Follow up at [facility] to evaluate PD.
[2017-06-16] MEDS ORDERED: NURSING VERBAL MED ORDER ONE (09:00)
[2017-06-16] MEDS: TAPENTADOL ER 50 MG TABCR PO SCH (09:00)
[2017-06-16] MEDS ORDERED: NICO14DI5 TD (10:47)
[2017-06-16] MEDS ORDERED: NCYSR50 PO (10:49)
[2017-06-16] MEDS ORDERED: NCY50 PO (10:49)
--- NOTE | 2017-06-16 10:53 | Discharge Instructions ---
Discharge Instructions Date of Service Jun 16, 2017. Admission Reason for Admission: Hypokalemia, Pancreatitis Discharge Discharge Diagnosis / Problem: abdominal pain from chronic pancreatitis S/P distant Whipple for pancreas Discharge Goals Goal(s): Decrease discomfort, Improve function, Increase independence, Improve disease control Activity Recommendations Activity Limitations: resume your previous activity . Instructions / Follow-Up Instructions / Follow-Up you have abdominal pain from chronic pancreatitis S/P distant Whipple for pancreas cancer. you need to follow up with [facility] gastroenterologists and surgeons for further evaluation and treatment continue low fat diet your new pain medicine is Nucynta, please follow up pain management as instructed - you need to follow up with your primary care physician in 1 week, - take medication as instructed, never overdose or any misuse, or take with alcohol, because misuse of medicine may cause organ damage or , call your primary care physician if have questions of medicaitons. - call your primary care physician OR go to local emergency room if has any fever/chill, chest pain, shortness of breathing, nausea/vomiting/abdominal pain , facial droop/slurry speech/local weakness, or if has any questions. - fall precaution - diet as instructed - you need to follow up with your subspecialists Current Hospital Diet Patient's current hospital diet: Low Fat Diet Discharge Diet Recommended Diet: Low Fat Diet Pending Studies Studies pending at discharge: no Medical Emergencies . Who to Call and When: Medical Emergencies: If at any time you feel your situation is an emergency, please call 911 immediately. . Non-Emergent Contact Non-Emergency issues call your: Primary Care Provider, Store Loss Prevention Manager . . "Provider Documentation" section prepared by Michael Allison. .
[2017-06-16 10:59] VITALS: BP 120/77; PULSE 70; TEMP 36.5; O2SAT 97
[2017-06-16] MEDS: DIGOXIN 0.125 MG TAB PO SCH (15:35)
[2017-06-16] MEDS: WARFARIN PO SCH ×2 (15:36)
--- NOTE | 2017-06-16 18:03 | Discharge Summary ---
Discharge Summary Date of Service Jun 16, 2017. Discharge Summary Admission Date: Jun 13, 2017 at 18:30 Discharge Date: Jun 16, 2017 Discharge Disposition: Home Principal Diagnosis: Abdominal pain from chronic pancreatitis S/P distant [place] Immunizations: Have You Had Influenza Vaccine: No History of Tetanus Vaccine?: No History of Pneumococcal: No History of Hepatitis B Vaccine: No Procedures: no Consultations: GI Medication Reconciliation New Medications: Nicotine (Nicoderm Cq 14MG Patch) 14 Mg/24 Hr Dis 1 PATCH TD QAM for 30 Days Tapentadol HCl (Nucynta) 50 Mg Tab 50 MG PO Q4H PRN for Pain for 14 Days, #56 TAB Tapentadol HCl (Nucynta ER) 50 Mg Tabcr 50 MG PO Q12 for 14 Days Continued Medications: Acetaminophen (Tylenol) 500 Mg Tab 2 TAB PO Q6 PRN for Pain for 2 Days, #20 TAB 3 Refills Albuterol Hfa (Ventolin Hfa) 200 Puffs/48226 Mcg Aers 2 PUFF INH QID PRN for SOB/Wheezing Allopurinol (Allopurinol) 100 Mg Tab 100 MG PO DAILY Ascorbic Acid (Vitamin C) 500 Mg Tab 2 TAB PO NOON Cholecalciferol (Vitamin D3) 2,000 Unit Tab 1 TAB PO BID Citalopram (Citalopram Hydrobromide) 20 Mg Tab 20 MG PO DAILY Colestipol Hcl (Colestid) 1 Gm Tab 2 GM PO BID, TAB Cyanocobalamin (Vitamin B-12) 1,000 Mcg Tab 1000 MCG PO QAM, TAB Digoxin (Digox) 125 Mcg Tab 125 MCG PO QAM Diltiazem Hcl Coated Beads (Cartia Xt) 120 Mg Cap 120 MG PO BID Docusate Sodium (Colace) 100 Mg Cap 1 CAP PO BID for 30 Days, #60 CAP Fenofibrate (Fenofibrate) 145 Mg Tab 145 MG PO QAM, #30 Fish Oil ([place]-3) 1 Ea Cap 1 CAP PO QPM, CAP Gabapentin (Neurontin) 100 Mg Cap 2 CAP PO TID for 30 Days, #180 CAP 2 Refills Insulin Glargine (Lantus Solostar) 100 Unit/Ml Inj 44 UNITS SC HS, PEN Insulin Lispro (Human) (Humalog Kwikpen) 100 Unit/Ml Inj 22 UNITS SQ BID take with breakfast & lunch Insulin Lispro (Human) (Humalog Kwikpen) 100 Unit/Ml Inj 20 UNITS SQ qsupper Magnesium Oxide (Mag-Ox) 400 Mg Tab 400 MG PO BID, TAB Metoprolol Succinate (Metoprolol Succinate ER) 25 Mg Tabcr 25 MG PO BID Naloxegol Oxalate (Movantik) 12.5 Mg Tab 12.5 MG PO QPM Ondansetron Hcl (Zofran) 4 Mg Tab 4 MG PO PC PRN for Nausea, #30 TAB 3 Refills Pancrelipase (Lipase-Protease- (Creon 92871) 1 Cap Cap 2 CAP PO TIDM, CAP Pantoprazole (Pantoprazole Sodium) 40 Mg Tab 40 MG PO DAILY Polyethylene Glycol 3350 (Miralax) 1 Pow Pow 17 GM PO DAILY for CONSTIPATION Sucralfate (Carafate) 1 Gm Tab 1 GM PO QID, TAB DISSOLVE TABLET INTO 4OZ OF WATER FOUR TIMES DAILY Trazodone Hcl (Trazodone) 50 Mg Tab 150 MG PO HS, TAB Warfarin Sodium (Coumadin) 3 Mg Tab 3.5 MG PO DAILY, TAB PER DR JAY Discontinued Medications: Hydrocodone/Acetaminophen 5MG/325MG ([place] 5MG/325MG) Tab 1 TAB PO Q4H PRN for Pain for 3 Days, #18 TAB PRN PAIN Discharge Exam doing better, tolerated diet, pain is better controlled, has been up and walk Review of Systems: Constitutional: No fever, No chills, No sweats, No weight loss, No weakness , No fatigue, No problem reported Eyes: No worsening of vision, No eye pain, No redness, No discharge, No diplopia, No problem reported ENT: No hearing loss, No unusual epistaxis, No nasal symptoms, No sore throat, No tinnitus, No dental problems, No trouble swallowing, No problem reported Respiratory: No cough, No sputum, No wheezing, No shortness of breath, No dyspnea on exertion, No dyspnea at rest, No hemoptysis, No problem reported Cardiovascular: No chest pain, No orthopnea, No PND, No edema, No claudication, No palpitations, No problem reported Abdomen: + pain Musculoskeletal: No joint pain, No muscle pain, No swelling, No calf pain, No problem reported Genitourinary - Female: No dysuria, No urinary frequency, No urinary urgency , No urinary incontinence, No urinary retention, No hematuria, No dysmenorrhea, No menorrhagia, No metrorrhagia, No rash, No vaginal bleeding, No vaginal discharge, No vaginal itching, No vulvodynia, No , No problem reported Neurologic: No memory loss, No paralysis, No weakness, No numbness/tingling , No vertigo, No balance problems, No problem reported Psychiatric: No depression symptoms, No anhedonism, No anxiety, No insomnia , No substance abuse, No problem reported Endocrine: No fatigue, No excessive thirst, No excessive urination, No problem reported Hematologic / Lymphatic: No abnormal bleeding/bruising, No clotting problems , No swollen lymph nodes, No night sweats, No problem reported Physical Exam: General Appearance: WD/WN, no apparent distress Eyes: normal inspection, PERRL, EOMI ENT: normal ENT inspection, hearing grossly normal Neck: supple, no adenopathy, thyroid normal Respiratory/Chest: chest non-tender, lungs clear, normal breath sounds, no respiratory distress Cardiovascular: regular rate, rhythm, no edema, no gallop, no JVD Abdomen / GI: normal bowel sounds, non tender, soft, no organomegaly, + tenderness Extremities: normal inspection, no calf tenderness, normal capillary refill 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 PMHx of h/o recurrent pancreatitis, h/o pancreatic cancer s/p Whipple's in 2013 , a. fib, CAD, T2DM, gout, tobacco use, and GERD Acute and Recurrent Pancreatitis with Normal Enzymes - H/O Pancreatic CA S/P Whipple (2013): - S/P Celiac plexus injection on 06/09 which she reports helped but currently not sustained - CT confirmation and clinical picture supports worsening of her pancreatitis even in setting of normal enzyme levels - Currently placed on Dilaudid STEEL POURER; pain management following and recommending to continue STEEL POURER at this time with plans to convert to Fentanyl in next 24-48 hrs ; consideration for celiac plexus block with neurolysis in the future; increased gabapentin to 300 mg TID; Added Nucynta GI following - appreciate recommendations - possible EUS and ERCP, how ever this am , pt 's pain is much better, and feeling ready to go home, Gi therefore feel would be better to follow up with primary Gi in [facility] , pt agreed. today is playing to discharge to home with plan to follow up with [facility] gastroenterologists and surgeons for further evaluation and treatment. and per pain management recommend, I will give Nusynta as need for pain control, Initially I order 50mg po q12 for 14 days, and 50mg po q8 prn for 14 days, later I called to pharmacy I only give 50mg po q8 hr prn for pain, only dispend for 28 tabs. Enterococcus UTI: - Surprisingly UA was largely unremarkable but cx with 100,000 colonies with urinary symptoms intermittently - even though afebrile and without leukocytosis will treat as this may be some component of her pain? - However, do to allergies there are limitations and she is hesitant to utilize Cipro given its interaction with Coumadiin has been on Macrobid for 2 days, pt reported symptoms resolved, therefore not need to continue antibiotics. Persistent Atrial Fibrillation: Rate Controlled - Intermittent bradycardia - considering outpatient pacer implantation - Digoxin 0.125 mg daily; Cardizem 120 mg BID; Toprol XL 25 mg BID - Warfarin 3.5 mg daily - continue to trend INR - currently therapeutic at 2.1 T2DM: - Lantus 20 units SC daily - will monitor intake and adjust - Cover with SSI as well GERD: - Protonix 40 mg daily and Carafate QID Tobacco Use: Continue to encourage cessation DVT Prophylaxis: Coumadin Code Status: FULL RESUSCITATION Instructions / Follow-Up you have abdominal pain from chronic pancreatitis S/P distant Whipple for pancreas cancer. you need to follow up with [facility] gastroenterologists and surgeons for further evaluation and treatment continue low fat diet your new pain medicine is Nucynta, please follow up pain management as instructed - you need to follow up with your primary care physician in 1 week, - take medication as instructed, never overdose or any misuse, or take with alcohol, because misuse of medicine may cause organ damage or , call your primary care physician if have questions of medicaitons. - call your primary care physician OR go to local emergency room if has any fever/chill, chest pain, shortness of breathing, nausea/vomiting/abdominal pain , facial droop/slurry speech/local weakness, or if has any questions. - fall precaution - diet as instructed - you need to follow up with your subspecialists Total Time Spent: Greater than 30 minutes This includes examination of the patient, discharge planning, medication reconciliation, and communication with other providers. Discharge Instructions Please refer to the electronic Patient Visit Report (Discharge Instructions) for additional information. Additional Copies To Michael Jay M.D.
== END 2017-06-16 15:54 | disposition home or self-care (01) | DRG 439 ==
LOC: EDBD 14:55 → C.EDB 14:57 → C.MS2W 18:30 → CANRESERV 18:47 → ENRESERV 18:47
PROVIDERS: ADMIT Internal Medicine; ATTEND Hospitalist
DX: K85.90 Acute pancreatitis without necrosis or infection, unspecified (principal); K86.1 Other chronic pancreatitis; C25.9 Malignant neoplasm of pancreas, unspecified; I48.1 Persistent atrial fibrillation; E11.9 Type 2 diabetes mellitus without complications; Z88.2 Allergy status to sulfonamides; N39.0 Urinary tract infection, site not specified; I25.10 Atherosclerotic heart disease of native coronary artery without angina pectoris; B95.2 Enterococcus as the cause of diseases classified elsewhere; Z79.4 Long term (current) use of insulin; Z88.8 Allergy status to other drugs, medicaments and biological substances; Z82.49 Family history of ischemic heart disease and other diseases of the circulatory system

== ENCOUNTER 2017-06-21 15:23 | Inpatient (IN) | payer OTHER ==
[~2017-06-21] VITALS: Ht 165.1 cm; Wt 85.3 kg
[~2017-06-21 15:23] MED LIST changes: +ALL100 PO; +ASCA500 PO; +CLX/20 PO; +COLE1TAB PO; +DILT120C43 PO; -HYDR-5688 PO; +INSDGIPEN SC; +INSU100I2 SQ; +NCY50 PO; +NCYSR50 PO; +NICO14DI5 TD; +PANT40TA2 PO; +TRC145 PO; +VNTHFA/IN INH
[2017-06-21] MEDS ORDERED: HYDROmorphone INJ 1 MG/ML SYR IV STA (15:39)
[2017-06-21] MEDS ORDERED: METOCLOPRAMIDE HCL INJ 5 MG/ML 2 ML VIAL IV. STA (15:39)
[2017-06-21] MEDS ORDERED: SODIUM CHLORIDE 0.9% 1000ML 1,000 ML IV STA (15:39)
--- NOTE | 2017-06-21 15:44 | EMERGENCY ROOM VISIT NOTE ---
History Report prepared by Chuyita: Sherwin Valencia Under the Supervision of: Dr. Simeon Skelton M.D. First contact with patient: 15:30 Chief Complaint: ABDOMINAL PAIN Stated Complaint: AB PAIN History of Present Illness The patient is a 61 year old female with a past medical history of pancreatitis, diverticulitis, atrial fibrillation, diabetes, and pancreatic cancer who presents to the ED with a cc of a constant, sharp abdominal pain beginning four days ago. Positive for nausea, vomiting, and back pain. Negative for passing gas. The patient states that she had an episode of atrial fibrillation with RVR and was discharged five days ago. She notes that she has been having abdominal pain for the last four days and saw her PCP today. She reports that she was placed on a 25mcg fentanyl patch. The patient states that she is also experiencing back pain and is nauseous and vomited today. She notes that her current symptoms feel similar to her previous pancreatitis symptoms. She reports that she is not sure when he last bowel movement was and is currently unable to pass gas. The patient states that she takes her atrial fibrillation medication every morning and took Tylenol with no relief of her symptoms. Per nurse, the patient had a syncope/near-syncope episode earlier where she stared blankly for about 60 seconds. Source of History: patient, nursing staff Onset: four days ago Position: abdomen Quality: sharp Timing: constant Associated Symptoms: + nausea, + vomiting, + back pain Note: The patient states that she is unable to pass gas. Per nurse, the patient had a syncope/near-syncope episode. Review of Systems See HPI for pertinent positives and negatives. A total of ten systems were reviewed and were otherwise negative. Past Medical & Surgical Medical Problems: (1) A-fib (2) Afib (3) Diabetes (4) Diverticulitis (5) Heart disease (6) HTN (hypertension) (7) Kidney stones (8) Pancreatic cancer (9) Pancreatitis Surgical Problems: (1) Hx of appendectomy (2) Hx of cholecystectomy Family History FH: cancer FH: heart disease Hypertension Kidney disease Kidney stones Seizures Social History Smoking Status: Current Every Day Smoker Alcohol Use: none Drug Use: none Marital Status: Housing Status: lives with family Occupation Status: unemployed Current/Historical Medications Scheduled Allopurinol (Allopurinol), 100 MG PO DAILY Ascorbic Acid (Vitamin C), 500 MG PO BID Cholecalciferol (Vitamin D3), 2,000 UNITS PO BID Citalopram (Citalopram Hydrobromide), 20 MG PO DAILY Colesevelam Hcl (Welchol), 625 MG PO d Colestipol Hcl (Colestid), 2 GM PO BID Cyanocobalamin (Vitamin B-12), 1,000 MCG PO QAM Dextrose (Diabetic Use) (Glucose), 4 TABS PO prn Digoxin (Digox), 125 MCG PO QAM Diltiazem Hcl Coated Beads (Cartia Xt), 120 MG PO BID Docusate Sodium (Colace), 100 MG PO BID Fenofibrate (Fenofibrate), 145 MG PO QAM Fentanyl (Fentanyl), 1 PATCH TOP Q72H Fish Oil ([place]-3), 1 CAP PO QPM Gabapentin (Neurontin), 100 MG PO TID Insulin Aspart (Novolog Penfill), 1 DOSE INJ UD Insulin Glargine (Lantus Solostar), 44 UNITS SC HS Insulin Lispro (Human) (Humalog Kwikpen), 1 DOSE SQ UD Lactobacillus (Probiotic), 1 CAP PO DAILY Magnesium Oxide (Mag-Ox), 400 MG PO BID Metoprolol Succinate (Metoprolol Succinate ER), 25 MG PO BID Naloxegol Oxalate (Movantik), 12.5 MG PO QPM Pancrelipase (Lipase-Protease- (Creon 20797), 2 CAP PO TIDM Pantoprazole (Pantoprazole Sodium), 40 MG PO DAILY Polyethylene Glycol 3350 (Miralax), 17 GM PO DAILY Sucralfate (Carafate), 1 GM PO QID Trazodone Hcl (Trazodone), 150 MG PO HS Warfarin Sod (Coumadin), 1 MG PO DAILY Warfarin Sodium (Coumadin), 3 MG PO DAILY Scheduled PRN Albuterol Hfa (Ventolin Hfa), 2 PUFF INH QID PRN for SOB/Wheezing Ondansetron Hcl (Zofran), 4 MG PO PC PRN for Nausea Allergies Coded Allergies: Iodinated Diagnostic Agents (Verified Allergy, Severe, HIVES, AIRWAY SWELLS FROM CT DYE, 01/18/17) Iodine (Verified Allergy, Severe, airway swells shut, 06/08/17) Amoxicillin (Verified Allergy, Intermediate, RASH, 06/15/17) Azithromycin (Verified Allergy, Intermediate, RASH, 06/08/17) Ceftriaxone (Verified Allergy, Intermediate, RASH, 06/04/17) Adhesives (Verified Allergy, Mild, RASH AND SORE SKIN FROM TAPE ADHESIVES , 01/18/17) Alcohol (Verified Allergy, Unknown, hives, 01/18/17) no alcohol wipes Atorvastatin (Verified Allergy, Unknown, UNKNOWN, 01/18/17) Isopropyl Alcohol (Verified Allergy, Unknown, UNKNOWN, 01/18/17) Lemon Oil (Verified Allergy, Unknown, UNKNOWN, 01/18/17) Lorazepam (Verified Allergy, Unknown, RASH, 01/18/17) Morphine (Verified Allergy, Unknown, stops heart, 06/08/17) Ondansetron (Verified Allergy, Unknown, rash, 01/18/17) Rosuvastatin (Verified Allergy, Unknown, UNKNOWN, 01/18/17) Shellfish (Verified Allergy, Unknown, UNKNOWN, 01/18/17) Sulfamethoxazole w/Trimethoprim (Verified Allergy, Unknown, UNKNOWN, ) Ciprofloxacin (Verified Adverse Reaction, Unknown, INTERFERES WITH COUMADIN, 01/18/17) Ezetimibe (Verified Adverse Reaction, Unknown, RAPID HEART BEAT, 01/18/17) Gemfibrozil (Verified Adverse Reaction, Unknown, MYALGIAS, 01/18/17) Lovastatin (Verified Adverse Reaction, Unknown, MYALGIAS, 06/08/17) Tramadol (Verified Adverse Reaction, Unknown, CHEST TIGHTNESS, 01/18/17) Physical Exam Vital Signs Date Time Temp Pulse Resp B/P (MAP) Pulse Ox O2 Delivery O2 Flow Rate FiO2 06/21/17 17:10 112 20 108/78 92 Room Air 06/21/17 16:32 105 06/21/17 15:38 36.7 130 15 122/73 95 Room Air Physical Exam GENERAL: Awake, alert, uncomfortable-appearing, in pain. HENT: Normocephalic, atraumatic. EYES: Normal conjunctiva. Sclera non-icteric. NECK: Supple. No nuchal rigidity. FROM. RESPIRATORY: CTAB, no rhonchi, wheezing, crackles CARDIAC: Tachycardic and irregular, no MRG ABDOMEN: Soft, ND, BS+, Diffuse abdominal TTP worse in left abdomen. MSK: No chest wall TTP, no LE edema, Fentanyl patch on left chest. NEURO: GCS 15, CN 2-12 intact, moves all 4s on command SKIN: No rash or jaundice noted. Medical Decision & Procedures ER Provider Diagnostic Interpretation: Radiology results as stated below per my review and radiologist interpretation: CT SCAN OF THE ABDOMEN AND PELVIS WITHOUT IV CONTRAST FINDINGS: Lung bases: The heart is top normal in size noting trace pericardial fluid. There are coronary artery calcifications. The lung bases are clear noting minimal dependent atelectasis. Liver: The unenhanced liver is enlarged, measuring over 18 cm in length. The liver demonstrates diffusely diminished attenuation consistent with hepatic steatosis. There is no intrahepatic biliary ductal dilatation. Gallbladder: Surgically absent. Spleen: Normal in size and attenuation. Pancreas: The unenhanced pancreas is moderately atrophic. Findings are consistent with previous surgical resection of the pancreatic head. Peripancreatic stranding and fluid are again seen. This has modestly increased from 06/13/2017. No organized peripancreatic fluid collection is seen on this unenhanced examination. Adrenal glands: Unremarkable. Kidneys: The unenhanced kidneys are normal in size. Again seen is a 9 mm obstructing calculus in the left proximal ureter at the level of L3-L4. This is seen on image #191, and the stone causes mild left-sided hydronephrosis. No additional left-sided renal calculi are identified. There are least 3 small nonobstructing right renal calculi measuring up to 3 mm. A 7.5 cm cyst arises from the lower pole of the right kidney. Abdominal vasculature: There is advanced atherosclerotic calcification and mild ectasia of the abdominal aorta. Stomach and bowel: There is evidence of distal gastrectomy with gastrojejunostomy. There are postoperative changes from left colon resection with colocolonic anastomosis. A small bowel anastomosis is also seen in the pelvis. No bowel obstruction is identified. Colonic interposition is incidentally noted. The appendix is not visualized. Peritoneum: There is no intraperitoneal free air or abdominal ascites. There is a small fat-containing hernia in the left ventral pelvis seen on image #282, possibly incisional. Lymphadenopathy: None. Pelvic viscera: The bladder is normal as visualized. The uterus is surgically absent. No adnexal lesion is seen. Skeletal structures: The skeletal structures are osteopenic. There is mild lumbosacral spondylosis. No lytic or blastic lesions are seen. IMPRESSION: 1. Suboptimal examination without oral and IV contrast. 2. Extensive postoperative changes are identified including previous resection of the pancreatic head, cholecystectomy, hysterectomy, and distal gastrectomy with gastrojejunostomy. A small bowel anastomosis is seen in the pelvis and there is evidence of previous sigmoid colon resection. 3. There is evidence of acute pancreatitis. This has modestly worsened as compared to the 06/13/2017 examination. No organized peripancreatic fluid collection is identified. 4. A 9 mm obstructing calculus is again seen in the left proximal ureter. This causes mild hydronephrosis. Follow-up with urology is recommended. 5. Hepatomegaly and hepatic steatosis. 6. Nonobstructing right renal calculi are noted. 7. Additional findings as above. Electronically signed by: Ryan Helms M.D. 06/21/2017 4:33 PM Laboratory Results 06/21/17 15:36 Red Blood Count 5.14, Mean Corpuscular Volume 85.2, Mean Corpuscular Hemoglobin 29.4, Mean Corpuscular Hemoglobin Concent 34.5, Mean Platelet Volume 9.8, Neutrophils (%) (Auto) 69.7, Lymphocytes (%) (Auto) 19.2, Monocytes (%) (Auto) 10.4, Eosinophils (%) (Auto) 0.2, Basophils (%) (Auto) 0.2, Neutrophils # (Auto ) 9.16, Lymphocytes # (Auto) 2.53, Monocytes # (Auto) 1.37, Eosinophils # (Auto ) 0.03, Basophils # (Auto) 0.02 06/21/17 15:36 Test 06/21/17 15:36 06/21/17 17:38 White Blood Count 13.15 K/uL (4.8-10.8) Red Blood Count 5.14 M/uL (4.2-5.4) Hemoglobin 15.1 g/dL (12.0-16.0) Hematocrit 43.8 % (37-47) Mean Corpuscular Volume 85.2 fL (80-100) Mean Corpuscular Hemoglobin 29.4 pg (25-34) Mean Corpuscular Hemoglobin Concent 34.5 g/dl (32-36) Platelet Count 281 K/uL (130-400) Mean Platelet Volume 9.8 fL (7.4-10.4) Neutrophils (%) (Auto) 69.7 % Lymphocytes (%) (Auto) 19.2 % Monocytes (%) (Auto) 10.4 % Eosinophils (%) (Auto) 0.2 % Basophils (%) (Auto) 0.2 % Neutrophils # (Auto) 9.16 K/uL (1.4-6.5) Lymphocytes # (Auto) 2.53 K/uL (1.2-3.4) Monocytes # (Auto) 1.37 K/uL (0.11-0.59) Eosinophils # (Auto) 0.03 K/uL (0-0.5) Basophils # (Auto) 0.02 K/uL (0-0.2) RDW Standard Deviation 41.9 fL (36.4-46.3) RDW Coefficient of Variation 13.4 % (11.5-14.5) Immature Granulocyte % (Auto) 0.3 % Immature Granulocyte # (Auto) 0.04 K/uL (0.00-0.02) Anion Gap 10.0 mmol/L (3-11) Est Creatinine Clear Calc Drug Dose 95.4 ml/min Estimated GFR () 110.3 Estimated GFR (Non- 95.2 BUN/Creatinine Ratio 14.6 (10-20) Bedside Glucose 131 mg/dl (70-90) Calcium Level 11.0 mg/dl (8.5-10.1) Magnesium Level 1.7 mg/dl (1.8-2.4) Total Bilirubin 0.5 mg/dl (0.2-1) Direct Bilirubin < 0.1 mg/dl (0-0.2) Aspartate Amino Transf (AST/SGOT) 11 U/L (15-37) Alanine Aminotransferase (ALT/SGPT) 32 U/L (12-78) Alkaline Phosphatase 100 U/L (45-117) Total Protein 7.7 gm/dl (6.4-8.2) Albumin 3.4 gm/dl (3.4-5.0) Lipase 505 U/L (73-393) Digoxin Level 0.5 ng/ml (0.8-2.0) Laboratory results reviewed by me Medications Administered Medications (Trade) Dose Ordered Sig/August Route Start Time Stop Time Status Last Admin Dose Admin Sodium Chloride 1,000 ml @ 999 mls/hr Q1H1M STAT IV 06/21/17 15:39 06/21/17 16:39 DC 06/21/17 15:58 999 MLS/HR Metoclopramide HCl (Reglan Inj) 10 mg NOW STAT IV. 06/21/17 15:39 06/21/17 15:42 DC 06/21/17 15:58 10 MG Hydromorphone HCl (Dilaudid Inj) 1 mg NOW STAT IV 06/21/17 15:39 06/21/17 15:42 DC 06/21/17 15:58 1 MG Sodium Chloride 500 ml @ 999 mls/hr Q31M STAT IV 06/21/17 17:00 06/21/17 17:30 DC 06/21/17 17:00 999 MLS/HR ECG Per My Interpretation Indication: abdominal pain Rate (beats per minute): 132 Rhythm: atrial fibrillation (with RVR) Findings: other (Normal QRS interval, normal axis) Comparison ECG Date: 06/04/2017 Change: Compared to prior, ventricular rate has increased and afib is chronic. ED Course 1524: The patient was evaluated in room A4. A complete history and physical exam was performed. 1553: I reevaluated the patient. She had another staring episode but is now fine. 1645: I rechecked the patient. 1712: The patient will be PO challenged. She is more comfortable and her heart rate has improved. 1753: Upon reexamination, the patient was stable. I discussed the test results and treatment plan with her. Discussed the patient's case with Dr. Caraballo - Hospitalist, [facility] [place]. The patient will be evaluated for further management. Medical Decision Nursing notes reviewed. Ancillary studies and prior records reviewed. The patient is a 61 year old female with a past medical history of pancreatitis, afib, diabetes, and pancreatic cancer who presents to the ED with a cc of a constant, sharp abdominal pain beginning four days ago. Positive nausea, vomiting, and back pain. Negative for passing gas. Differential diagnosis: Etiologies such as appendicitis, diverticulitis, PUD, biliary pathology, UTI, pancreatitis, obstruction, mesenteric ischemia, aortic pathology, infections, inflammatory bowel disease, renal colic, as well as others were entertained. Patient was seen and evaluated the bedside. Patient did have a recent admission for chronic pancreatitis. Patient poorly has a history of pancreatic cancer status post [place] but has had recurrent bouts of pancreatitis. This is been the most likely from the procedure. Patient denies any alcohol use. Patient does not have a history of hyperlipidemia. Patient denies any recent trauma or instrumentation. Patient did have a recent admission here and was discharged on Monday. Patient did see her PCP today and was given a fentanyl patch. Patient's pain has continued. On presentation the patient is in A. fib with RVR. This may be related to pain as the patient did take her normal dig, Cardizem, and Toprol. Patient did blood work completed, EKG, troponin, CT abdomen pelvis Noncon, and was given IV fluids, antiemetics, and pain control. Patient's EKG does show A. fib with RVR. I believe this is likely related to may be some mild dehydration and pain. Patient CT the abdomen pelvis did show worsening of her pancreatitis. Lipase was mildly elevated. The patient's pain did improve. Patient's other blood work is fairly unremarkable. Patient does have worsening signs seen on CT however given the relatively low lipase and improvement of her pain she was p.o. challenged. Patient had not tolerated p.o. challenge and did have profuse vomiting thereafter. I did discuss the case with the on-call hospitalist for further pain control, nausea and vomiting control and further treatment. Patient was admitted to the medicine service. Medication Reconcilliation Current Medication List: was personally reviewed by me Blood Pressure Screening Patient's blood pressure: Normal blood pressure Blood pressure disposition: Did not require urgent referral Consults Time Called: 1747 Consulting Physician: Dr. Caraballo - Hospitalist, [facility] [place] Returned Call: [phone] Discussed the patient's case. The patient will be evaluated for further treatment and disposition. Impression Primary Impression: Acute on chronic pancreatitis Additional Impressions: Abdominal pain Atrial fibrillation with RVR Scribe Attestation The scribe's documentation has been prepared under my direction and personally reviewed by me in its entirety. I confirm that the note above accurately reflects all work, treatment, procedures, and medical decision making performed by me. Departure Information Dispostion Being Evaluated By Hospitalist Referrals Michael Sepulveda M.D. (PCP) Patient Instructions My [facility] Problem Qualifiers Additional Impressions: Abdominal pain Abdominal location: generalized Qualified Codes: R10.84 - Generalized abdominal pain
[2017-06-21 16:06] LABS: BASO % 0.2 %; BASO ABS # 0.02 K/uL (0-0.2); EOS % 0.2 %; EOS ABS # 0.03 K/uL (0-0.5); HEMATOCRIT 43.8 % (37-47); HEMOGLOBIN 15.1 g/dL (12.0-16.0); IG# 0.04 K/uL (0.00-0.02); LYMPH % 19.2 %; LYMPH ABS # 2.53 K/uL (1.2-3.4); MEAN CELL VOLUME 85.2 fL (80-100); MEAN CORPUSCULAR HEMOGLOBIN 29.4 pg (25-34); MEAN CORPUSCULAR HGB CONC 34.5 g/dl (32-36); MEAN PLATELET VOLUME 9.8 fL (7.4-10.4); MONO % 10.4 %; MONO ABS # 1.37 K/uL (0.11-0.59); NEUT % 69.7 %; NEUT ABS # 9.16 K/uL (1.4-6.5); PLATELET COUNT 281 K/uL (130-400); RED CELL DISTRIBUTION WIDTH CV 13.4 % (11.5-14.5); RED CELL DISTRIBUTION WIDTH SD 41.9 fL (36.4-46.3); WHITE BLOOD COUNT 13.15 K/uL (4.8-10.8)
[2017-06-21] MEDS ORDERED: WLC625 PO (16:09)
[2017-06-21 16:11] LABS: ALBUMIN 3.4 gm/dl (3.4-5.0); ALT/SGPT 32 U/L (12-78); AST/SGOT 11 U/L (15-37); BLOOD UREA NITROGEN 9 mg/dl (7-18); CARBON DIOXIDE 25 mmol/L (21-32); CREATININE 0.65 mg/dl (0.60-1.20); GLUCOSE 132 mg/dl (70-99); LIPASE 505 U/L (73-393); POTASSIUM 3.7 mmol/L (3.5-5.1); SODIUM 137 mmol/L (136-145)
[2017-06-21] MEDS ORDERED: DRGTP25 TOP (16:13)
[2017-06-21 16:14] LABS: ALKALINE PHOSPHATASE 100 U/L (45-117); TOTAL PROTEIN 7.7 gm/dl (6.4-8.2)
[2017-06-21] MEDS ORDERED: GABA-112 PO (16:14)
[2017-06-21] MEDS ORDERED: DEXT4CHW60 PO (16:17)
[2017-06-21] MEDS ORDERED: INSU1INJ2 INJ (16:21)
[2017-06-21] MEDS ORDERED: LACT1CAP6 PO (16:26)
--- NOTE | 2017-06-21 16:35 | DIAGNOSTIC IMAGING REPORT ---
CT SCAN OF THE ABDOMEN AND PELVIS WITHOUT IV CONTRAST CLINICAL HISTORY: Generalized abdominal pain. Obstipation. COMPARISON STUDY: Recent prior abdominal CT scans dated 06/13/2017 and 06/04/2017. TECHNIQUE: CT scan of the abdomen and pelvis is performed from the lung bases to the proximal femora. Images are reviewed in the axial, sagittal, and coronal planes. IV contrast was not administered for this examination as per the referring clinician. Note that the examination was performed and significantly suboptimal fashion without oral and IV contrast. A dose lowering technique was utilized adhering to the principles of ALARA. CT DOSE: 627.70 mGy.cm FINDINGS: Lung bases: The heart is top normal in size noting trace pericardial fluid. There are coronary artery calcifications. The lung bases are clear noting minimal dependent atelectasis. Liver: The unenhanced liver is enlarged, measuring over 18 cm in length. The liver demonstrates diffusely diminished attenuation consistent with hepatic steatosis. There is no intrahepatic biliary ductal dilatation. Gallbladder: Surgically absent. Spleen: Normal in size and attenuation. Pancreas: The unenhanced pancreas is moderately atrophic. Findings are consistent with previous surgical resection of the pancreatic head. Peripancreatic stranding and fluid are again seen. This has modestly increased from 06/13/2017. No organized peripancreatic fluid collection is seen on this unenhanced examination. Adrenal glands: Unremarkable. Kidneys: The unenhanced kidneys are normal in size. Again seen is a 9 mm obstructing calculus in the left proximal ureter at the level of L3-L4. This is seen on image #191, and the stone causes mild left-sided hydronephrosis. No additional left-sided renal calculi are identified. There are least 3 small nonobstructing right renal calculi measuring up to 3 mm. A 7.5 cm cyst arises from the lower pole of the right kidney. Abdominal vasculature: There is advanced atherosclerotic calcification and mild ectasia of the abdominal aorta. Stomach and bowel: There is evidence of distal gastrectomy with gastrojejunostomy. There are postoperative changes from left colon resection with colocolonic anastomosis. A small bowel anastomosis is also seen in the pelvis. No bowel obstruction is identified. Colonic interposition is incidentally noted. The appendix is not visualized. Peritoneum: There is no intraperitoneal free air or abdominal ascites. There is a small fat-containing hernia in the left ventral pelvis seen on image #282, possibly incisional. Lymphadenopathy: None. Pelvic viscera: The bladder is normal as visualized. The uterus is surgically absent. No adnexal lesion is seen. Skeletal structures: The skeletal structures are osteopenic. There is mild lumbosacral spondylosis. No lytic or blastic lesions are seen. IMPRESSION: 1. Suboptimal examination without oral and IV contrast. 2. Extensive postoperative changes are identified including previous resection of the pancreatic head, cholecystectomy, hysterectomy, and distal gastrectomy with gastrojejunostomy. A small bowel anastomosis is seen in the pelvis and there is evidence of previous sigmoid colon resection. 3. There is evidence of acute pancreatitis. This has modestly worsened as compared to the 06/13/2017 examination. No organized peripancreatic fluid collection is identified. 4. A 9 mm obstructing calculus is again seen in the left proximal ureter. This causes mild hydronephrosis. Follow-up with urology is recommended. 5. Hepatomegaly and hepatic steatosis. 6. Nonobstructing right renal calculi are noted. 7. Additional findings as above. Electronically signed by: Ryan Helms M.D. 06/21/2017 4:33 PM Dictated Date/Time: 06/21/2017 4:22 PM
[2017-06-21] MEDS ORDERED: CMD1 PO (16:36)
[2017-06-21] MEDS ORDERED: SODIUM CHLORIDE 0.9% 500ML 500 ML IV STA (17:00)
[2017-06-21] MEDS ORDERED: PROMETHAZINE HCL INJ 25 MG/ML 1 ML VIAL IM STA (17:44)
[2017-06-21] MEDS ORDERED: NURSING VERBAL MED ORDER ONE ×2 (18:15→23:00)
[2017-06-21] MEDS ORDERED: PROMETHAZINE HCL INJ 25 MG in SODIUM CHLORIDE 0.9% 50ML 50 ML IV SCH (18:15)
[2017-06-21] MEDS ORDERED: HYDROmorphone INJ 0.5 MG/0.5 ML SYR ONE (18:34)
[2017-06-21] MEDS ORDERED: HYDROmorphone INJ 0.5 MG/0.5 ML SYR IV STA (18:39)
[2017-06-21] MEDS ORDERED: DILTIAZEM BOLUS / DRIP IV STA (18:49)
[2017-06-21 19:27] VITALS: BMI 31.5
[2017-06-21] MEDS: DILTIAZEM HCL INJ 125 MG in DEXTROSE 5% 100ML IV PRN (19:58)
[2017-06-21 20:07] LABS: INR 3.4 (0.9-1.1)
[2017-06-21] MEDS ORDERED: ALBUTEROL HFA 8 GM INHALER INH PRN (20:15)
--- NOTE | 2017-06-21 20:25 | History and Physical ---
History & Physical Date & Time of Service: Jun 21, 2017 at 18:25 Chief Complaint: Ab Pain Primary Care Physician: Michael Sepulveda M.D. History of Present Illness Source: patient Ms. Torres was discharged from the hospital Monday for the same complaints. Monday she started having increased pain which has continued to worsen. She started vomiting late this morning and has continued to vomit since then. Her pain is on the left radiating to the back. She has a history of Whipple procedure for pancreatic cancer in 2013. She does have some burning with urination. Pmhx: kidney stones, pancreatic cancer, diabetes, chronic pancreatitis, brain surgery for aneurysm ROS Constitutional: no chills, aches, sweats or fever Respiratory: no sob,cough, sputum, or wheezing Cardiac: no chest pain, palpitations, edema, orthopnea or lightheadedness GI: see HPI : see HPI Extremities: no joint pain or weakness Skin: no rash All other systems reviewed and negative Past Medical/Surgical History Medical Problems: (1) A-fib (2) Abdominal pain (3) Abdominal pain (4) Acute on chronic pancreatitis (5) Afib (6) Aneurysm (7) Back pain (8) Constipation (9) Dehydration (10) Diabetes (11) Diffuse abdominal pain (12) Diverticulitis (13) Flank pain (14) Heart disease (15) HTN (hypertension) (16) Hyperglycemia (17) Hypokalemia (18) Kidney disease (19) Kidney stone (20) Kidney stones (21) Left flank pain (22) Left sided abdominal pain (23) Pancreatic cancer (24) Pancreatitis (25) Pancreatitis (26) Renal colic (27) Right sided abdominal pain (28) UTI (urinary tract infection) (29) UTI (urinary tract infection) Surgical Problems: (1) Hx of appendectomy (2) Hx of cholecystectomy Family History FH: cancer FH: heart disease Hypertension Kidney disease Kidney stones Seizures Family history of kidney stones Social History Smoking Status: Current Some Day Smoker Smokeless Tobacco Use: No Alcohol Use: none Drug Use: none Marital Status: Housing status: lives with significant other Occupational Status: disabled Immunizations History of Influenza Vaccine: No History of Tetanus Vaccine?: No History of Pneumococcal: No History of Hepatitis B Vaccine: No Allergies Coded Allergies: Iodinated Diagnostic Agents (Verified Allergy, Severe, HIVES, AIRWAY SWELLS FROM CT DYE, 01/18/17) Iodine (Verified Allergy, Severe, airway swells shut, 06/08/17) Amoxicillin (Verified Allergy, Intermediate, RASH, 06/15/17) Azithromycin (Verified Allergy, Intermediate, RASH, 06/08/17) Ceftriaxone (Verified Allergy, Intermediate, RASH, 06/04/17) Adhesives (Verified Allergy, Mild, RASH AND SORE SKIN FROM TAPE ADHESIVES , 01/18/17) Alcohol (Verified Allergy, Unknown, hives, 01/18/17) no alcohol wipes Atorvastatin (Verified Allergy, Unknown, UNKNOWN, 01/18/17) Isopropyl Alcohol (Verified Allergy, Unknown, UNKNOWN, 01/18/17) Lemon Oil (Verified Allergy, Unknown, UNKNOWN, 01/18/17) Lorazepam (Verified Allergy, Unknown, RASH, 01/18/17) Morphine (Verified Allergy, Unknown, stops heart, 06/08/17) Ondansetron (Verified Allergy, Unknown, rash, 01/18/17) Rosuvastatin (Verified Allergy, Unknown, UNKNOWN, 01/18/17) Shellfish (Verified Allergy, Unknown, UNKNOWN, 01/18/17) Sulfamethoxazole w/Trimethoprim (Verified Allergy, Unknown, UNKNOWN, ) Ciprofloxacin (Verified Adverse Reaction, Unknown, INTERFERES WITH COUMADIN, 01/18/17) Ezetimibe (Verified Adverse Reaction, Unknown, RAPID HEART BEAT, 01/18/17) Gemfibrozil (Verified Adverse Reaction, Unknown, MYALGIAS, 01/18/17) Lovastatin (Verified Adverse Reaction, Unknown, MYALGIAS, 06/08/17) Tramadol (Verified Adverse Reaction, Unknown, CHEST TIGHTNESS, 01/18/17) Home Medications Scheduled Allopurinol (Allopurinol), 100 MG PO DAILY Ascorbic Acid (Vitamin C), 500 MG PO BID Cholecalciferol (Vitamin D3), 2,000 UNITS PO BID Citalopram (Citalopram Hydrobromide), 20 MG PO DAILY Colesevelam Hcl (Welchol), 625 MG PO d Colestipol Hcl (Colestid), 2 GM PO BID Cyanocobalamin (Vitamin B-12), 1,000 MCG PO QAM Dextrose (Diabetic Use) (Glucose), 4 TABS PO prn Digoxin (Digox), 125 MCG PO QAM Diltiazem Hcl Coated Beads (Cartia Xt), 120 MG PO BID Docusate Sodium (Colace), 100 MG PO BID Fenofibrate (Fenofibrate), 145 MG PO QAM Fentanyl (Fentanyl), 1 PATCH TOP Q72H Fish Oil ([place]-3), 1 CAP PO QPM Gabapentin (Neurontin), 100 MG PO TID Insulin Aspart (Novolog Penfill), 1 DOSE INJ UD Insulin Glargine (Lantus Solostar), 44 UNITS SC HS Insulin Lispro (Human) (Humalog Kwikpen), 1 DOSE SQ UD Lactobacillus (Probiotic), 1 CAP PO DAILY Magnesium Oxide (Mag-Ox), 400 MG PO BID Metoprolol Succinate (Metoprolol Succinate ER), 25 MG PO BID Naloxegol Oxalate (Movantik), 12.5 MG PO QPM Pancrelipase (Lipase-Protease- (Creon 09658), 2 CAP PO TIDM Pantoprazole (Pantoprazole Sodium), 40 MG PO DAILY Polyethylene Glycol 3350 (Miralax), 17 GM PO DAILY Sucralfate (Carafate), 1 GM PO QID Trazodone Hcl (Trazodone), 150 MG PO HS Warfarin Sod (Coumadin), 1 MG PO DAILY Warfarin Sodium (Coumadin), 3 MG PO DAILY Scheduled PRN Albuterol Hfa (Ventolin Hfa), 2 PUFF INH QID PRN for SOB/Wheezing Ondansetron Hcl (Zofran), 4 MG PO PC PRN for Nausea Physical Exam Vital Signs Date Time Temp Pulse Resp B/P (MAP) Pulse Ox O2 Delivery O2 Flow Rate FiO2 06/21/17 17:10 112 20 108/78 92 Room Air 06/21/17 16:32 105 06/21/17 15:38 36.7 130 15 122/73 95 Room Air General: no distress Eyes: normal inspection, PERLL Respiratory: chest non tender, clear to auscultation, normal breath sounds, no respiratory distress, no accessory muscle use Cardiac: irregular rate and rhythm, no rub or gallop, no murmur, no edema, no jvd GI/: active bowel sounds, exquisitely tender left upper abdomen and flank wrapping around to costovertebral angle, soft, non distended Extremities: normal range of motion, normal strength, non tender Neuro/Psych: alert and oriented x 3, normal mood and affect Skin: normal color, dry Diagnostics Laboratory Results Results Past 24 Hours Test 06/21/17 15:36 06/21/17 17:38 Range/Units White Blood Count 13.15 4.8-10.8 K/uL Red Blood Count 5.14 4.2-5.4 M/uL Hemoglobin 15.1 12.0-16.0 g/dL Hematocrit 43.8 37-47 % Mean Corpuscular Volume 85.2 80-100 fL Mean Corpuscular Hemoglobin 29.4 25-34 pg Mean Corpuscular Hemoglobin Concent 34.5 32-36 g/dl Platelet Count 281 130-400 K/uL Mean Platelet Volume 9.8 7.4-10.4 fL Neutrophils (%) (Auto) 69.7 % Lymphocytes (%) (Auto) 19.2 % Monocytes (%) (Auto) 10.4 % Eosinophils (%) (Auto) 0.2 % Basophils (%) (Auto) 0.2 % Neutrophils # (Auto) 9.16 1.4-6.5 K/uL Lymphocytes # (Auto) 2.53 1.2-3.4 K/uL Monocytes # (Auto) 1.37 0.11-0.59 K/uL Eosinophils # (Auto) 0.03 0-0.5 K/uL Basophils # (Auto) 0.02 0-0.2 K/uL RDW Standard Deviation 41.9 36.4-46.3 fL RDW Coefficient of Variation 13.4 11.5-14.5 % Immature Granulocyte % (Auto) 0.3 % Immature Granulocyte # (Auto) 0.04 0.00-0.02 K/uL Sodium Level 137 136-145 mmol/L Potassium Level 3.7 3.5-5.1 mmol/L Chloride Level 102 98-107 mmol/L Carbon Dioxide Level 25 21-32 mmol/L Anion Gap 10.0 3-11 mmol/L Blood Urea Nitrogen 9 7-18 mg/dl Creatinine 0.65 0.60-1.20 mg/dl Est Creatinine Clear Calc Drug Dose 95.4 ml/min Estimated GFR () 110.3 Estimated GFR (Non- 95.2 BUN/Creatinine Ratio 14.6 10-20 Bedside Glucose 131 70-90 mg/dl Random Glucose 132 70-99 mg/dl Calcium Level 11.0 8.5-10.1 mg/dl Magnesium Level 1.7 1.8-2.4 mg/dl Total Bilirubin 0.5 0.2-1 mg/dl Direct Bilirubin < 0.1 0-0.2 mg/dl Aspartate Amino Transf (AST/SGOT) 11 15-37 U/L Alanine Aminotransferase (ALT/SGPT) 32 12-78 U/L Alkaline Phosphatase 100 45-117 U/L Total Protein 7.7 6.4-8.2 gm/dl Albumin 3.4 3.4-5.0 gm/dl Lipase 505 73-393 U/L Digoxin Level 0.5 0.8-2.0 ng/ml Diagnostic Radiology CT SCAN OF THE ABDOMEN AND PELVIS WITHOUT IV CONTRAST CLINICAL HISTORY: Generalized abdominal pain. Obstipation. COMPARISON STUDY: Recent prior abdominal CT scans dated 06/13/2017 and 06/04/2017. TECHNIQUE: CT scan of the abdomen and pelvis is performed from the lung bases to the proximal femora. Images are reviewed in the axial, sagittal, and coronal planes. IV contrast was not administered for this examination as per the referring clinician. Note that the examination was performed and significantly suboptimal fashion without oral and IV contrast. A dose lowering technique was utilized adhering to the principles of ALARA. CT DOSE: 627.70 mGy.cm FINDINGS: Lung bases: The heart is top normal in size noting trace pericardial fluid. There are coronary artery calcifications. The lung bases are clear noting minimal dependent atelectasis. Liver: The unenhanced liver is enlarged, measuring over 18 cm in length. The liver demonstrates diffusely diminished attenuation consistent with hepatic steatosis. There is no intrahepatic biliary ductal dilatation. Gallbladder: Surgically absent. Spleen: Normal in size and attenuation. Pancreas: The unenhanced pancreas is moderately atrophic. Findings are consistent with previous surgical resection of the pancreatic head. Peripancreatic stranding and fluid are again seen. This has modestly increased from 06/13/2017. No organized peripancreatic fluid collection is seen on this unenhanced examination. Adrenal glands: Unremarkable. Kidneys: The unenhanced kidneys are normal in size. Again seen is a 9 mm obstructing calculus in the left proximal ureter at the level of L3-L4. This is seen on image #191, and the stone causes mild left-sided hydronephrosis. No additional left-sided renal calculi are identified. There are least 3 small nonobstructing right renal calculi measuring up to 3 mm. A 7.5 cm cyst arises from the lower pole of the right kidney. Abdominal vasculature: There is advanced atherosclerotic calcification and mild ectasia of the abdominal aorta. Stomach and bowel: There is evidence of distal gastrectomy with gastrojejunostomy. There are postoperative changes from left colon resection with colocolonic anastomosis. A small bowel anastomosis is also seen in the pelvis. No bowel obstruction is identified. Colonic interposition is incidentally noted. The appendix is not visualized. Peritoneum: There is no intraperitoneal free air or abdominal ascites. There is a small fat-containing hernia in the left ventral pelvis seen on image #282, possibly incisional. Lymphadenopathy: None. Pelvic viscera: The bladder is normal as visualized. The uterus is surgically absent. No adnexal lesion is seen. Skeletal structures: The skeletal structures are osteopenic. There is mild lumbosacral spondylosis. No lytic or blastic lesions are seen. IMPRESSION: 1. Suboptimal examination without oral and IV contrast. 2. Extensive postoperative changes are identified including previous resection of the pancreatic head, cholecystectomy, hysterectomy, and distal gastrectomy with gastrojejunostomy. A small bowel anastomosis is seen in the pelvis and there is evidence of previous sigmoid colon resection. 3. There is evidence of acute pancreatitis. This has modestly worsened as compared to the 06/13/2017 examination. No organized peripancreatic fluid collection is identified. 4. A 9 mm obstructing calculus is again seen in the left proximal ureter. This causes mild hydronephrosis. Follow-up with urology is recommended. 5. Hepatomegaly and hepatic steatosis. 6. Nonobstructing right renal calculi are noted. 7. Additional findings as above. Electronically signed by: Ryan Helms M.D. 06/21/2017 4:33 PM EKG Atrial fibrillation with rapid ventricular response Nonspecific T wave abnormality Abnormal ECG When compared with ECG of 13-JUN-2017 15:29, T wave inversion now evident in Lateral leads Confirmed by JOSR ABRAHAM ([id number]) on 06/21/2017 3:43:06 PM Impression Assessment and Plan Ms. Torres is a 61 year old woman here for acute nephrolithiasis with hydronephrosis, acute on chronic pancreatitis, a.fib rvr Acute nephrolithiasis with hydronephrosis - admit telemetry - seen on CT - 9 mm obstructing calculus left ureter with mild hydronephrosis - consulted nephrology - I spoke with Dr. Zarate - patient should be made npo and will likely have procedure tomorrow - NSS @ 150 ml/hr - U/A with bacteria, WBCs and leuk esterase - start Cipro - patient allergy for this medication is listed as "interferes with Coumadin" and patient does not recall ever having had a reaction. Urine culture, BC pending - NPO - promethazine q6h prn for nausea/vomiting Acute on Chronic pancreatitis - pain control, IVF, npo - Consult GI - CT showed worsening acute pancreatitis from 06/13, lipase was 505 - restart pancrease when able to take po A.fib RVR - INR 3.4 - hold Coumadin for procedure tomorrow and reverse with 5mg IV vit k - diltiazem drip, no bolus, prn iv metoprolol - restart metoprolol, dilt, digoxin, coumadin po after procedure with urology tomorrow and no longer vomiting DMII - will cut home lantus dose of 44 units in half to 22 units tonight due to npo status - sliding scale, bsgs ac & hs Hypomagnesemia - Mag 1.7 - replaced GERD - protonix IV push until able to resume po Anxiety/depression - resume trazadone when able to take po Full code SCDs, coumadin reversed for procedure tomorrow and then can be restarted. Resident Physician Supervision Note: I was present with Mark Healy [employer] CONSULTANT during the history and exam. I discussed the case with the [employer] CONSULTANT and agree with the findings and plan as documented in the note. Any exceptions or clarifications are listed here: 61 y/o F chronic AF, DM II, GERD. recurrent pancreatitis, renal calculi - presenting with complaints consistent with recurrent pancreatitis, however, she has an large L ureteral calculus with resultant hydronephrosis. OE Emotionally distressed, middle aged female - discomfort is apparent - AAO x 3 S1,2 irr, borderline tachy CTAB Diffuse abd pain is present No CCE No deficits P: Will treat for presumed pancreatitis - IVF, NPO, pain control Urology is consulted due to calculus/ureteral obstruction - unlikely to resolve spontaneously based on size She is treated with Abx for both conditions as her UA is (+) AF is rapid but may be partially compensatory - placed on Cardizem 5/hr for now Sliding scale for DM Documented By: Hans Caraballo Advanced Directives Existing Advance Directive: Yes Existing Living Will: Yes Existing Power of Dermatology Physician Assistant: Yes () Resuscitation Status VTE Prophylaxis Will order VTE Prophylaxis: Yes
[2017-06-21] MEDS ORDERED: METOPROLOL TARTRATE 1 MG/ML VIAL IV PRN (20:30)
[2017-06-21 20:38] VITALS: BP 137/77; PULSE 86; TEMP 36.8; O2SAT 93
[2017-06-21] MEDS ORDERED: PHYTONADIONE INJ 5 MG in SODIUM CHLORIDE 0.9% 50ML 50 ML IV ONE (20:45)
[2017-06-21] MEDS: SODIUM CHLORIDE 0.9% 1000ML 1,000 ML IV SCH (20:55)
[2017-06-21] MEDS ORDERED: INSULIN GLARGINE SOLOSTAR 100 UNITS/ML 3 ML PEN SC SCH (21:00)
[2017-06-21] MEDS ORDERED: MAGNESIUM SULFATE 1GM / D5W 1 GM in PREMIXED IN D5W 100 ML IV ONE (21:00)
[2017-06-21] MEDS: INSULIN ASPART 100 UNITS/ML 3 ML PEN SC SCH (21:24)
[2017-06-21] MEDS: INSULIN GLARGINE SOLOSTAR 100 UNITS/ML 3 ML PEN SC SCH (21:24)
[2017-06-21 21:28] VITALS: BP 142/91; PULSE 110; TEMP 37.2; O2SAT 94
[2017-06-21] MEDS: HYDROmorphone INJ 0.5 MG/0.5 ML SYR IV PRN (21:32)
[2017-06-21] MEDS ORDERED: HEPARIN SOD 5000 UNIT/0.5 ML CARP SQ SCH (22:00)
[2017-06-21] MEDS: ONDANSETRON 4MG OD TAB PO PRN (23:15)
[2017-06-21] MEDS: CIPROFLOXACIN / D5W 400 MG in PREMIXED IN D5W 200 ML IV SCH (23:16)
[2017-06-21 23:41] VITALS: BP 136/66; PULSE 100; TEMP 37.1; O2SAT 92
[2017-06-22] VITALS (12 sets, daily range): BP systolic 106–125; BP diastolic 64–79; PULSE 69–104; TEMP 36.8–37.1; O2SAT 2–93; Ht 165.1 cm; Wt 85.3 kg
[2017-06-22] MEDS: DILTIAZEM HCL INJ 125 MG in DEXTROSE 5% 100ML IV PRN ×2 (00:18→09:15)
[2017-06-22] MEDS: HYDROmorphone INJ 0.5 MG/0.5 ML SYR IV PRN ×6 (00:37→15:07)
[2017-06-22] MEDS ORDERED: HYDROmorphone INJ 0.5 MG/0.5 ML SYR IV STA (01:56)
[2017-06-22] MEDS: SODIUM CHLORIDE 0.9% 1000ML 1,000 ML IV SCH ×4 (04:13→19:21)
[2017-06-22 06:20] LABS: HEMATOCRIT 39.8 % (37-47); HEMOGLOBIN 13.3 g/dL (12.0-16.0); MEAN CELL VOLUME 86.5 fL (80-100); MEAN CORPUSCULAR HEMOGLOBIN 28.9 pg (25-34); MEAN CORPUSCULAR HGB CONC 33.4 g/dl (32-36); PLATELET COUNT 187 K/uL (130-400); RED CELL DISTRIBUTION WIDTH CV 13.6 % (11.5-14.5); RED CELL DISTRIBUTION WIDTH SD 42.8 fL (36.4-46.3)
[2017-06-22 06:21] LABS: MEAN PLATELET VOLUME 10.3 fL (7.4-10.4)
[2017-06-22 06:30] LABS: INR 1.4 (0.9-1.1)
[2017-06-22 06:55] LABS: CALCIUM 9.3 mg/dl (8.5-10.1); CREATININE 0.43 mg/dl (0.60-1.20); POTASSIUM 3.5 mmol/L (3.5-5.1)
[2017-06-22] MEDS: INSULIN ASPART 100 UNITS/ML 3 ML PEN SC SCH ×4 (07:00→21:11)
[2017-06-22] MEDS: CHECK FENTANYL PATCH PLACEMENT SCH ×3 (07:28→16:02)
[2017-06-22] MEDS: CIPROFLOXACIN / D5W 400 MG in PREMIXED IN D5W 200 ML IV SCH ×2 (07:29→21:04)
[2017-06-22] MEDS ORDERED: MAGNESIUM SULFATE 1GM / D5W 1 GM in PREMIXED IN D5W 100 ML IV SCH (10:45)
[2017-06-22] MEDS ORDERED: PANTOprazole INJ 40 MG in SYRINGE 0 ML IV SCH (11:00)
[2017-06-22] MEDS ORDERED: NALOXONE HCL 0.4 MG/1 ML VIAL/CARP IV PRN (11:45)
--- NOTE | 2017-06-22 12:03 | Urology Consultation ---
History General Date of Service: Jun 22, 2017. Primary Care Physician: Michael Sepulveda M.D. Pt seen a urologist before?: Yes If yes, why?: kidney stones History of Present Illness 61y/o female with hx of whipple for pancreatic cancer with disease remission but recurrent pancreatitis - also with hx of kidney stones - now admitted for the second time in 1 week with left flank pain radiating to the back - found to have a 9mm left UPJ stone and smaller calc in the posterior aspect of the kidney - mild hydro - no fevers/chills - significant pain and dysuria Laboratory Labs were reviewed and are within normal limits unless listed below. Labs are available in the chart and at [facility] Problem List Medical Problems: (1) Abdominal pain Status: Acute (2) Acute on chronic pancreatitis Status: Acute (3) Atrial fibrillation with RVR Status: Acute (4) Back pain Status: Acute (5) Diffuse abdominal pain Status: Acute (6) Flank pain Status: Acute (7) Hypokalemia Status: Acute (8) Left flank pain Status: Acute (9) Pancreatitis Status: Acute (10) UTI (urinary tract infection) Status: Acute Past History A Fib, cancer, diabetes, hypercoagulability, hypertension, kidney stones, pancreatitis Past Surgical History: exploratory laparotomy, ureteral stent, other Family History FH: cancer FH: heart disease Hypertension Kidney disease Kidney stones Seizures Social History Hx Tobacco Use In Past Year?: Yes Marital status: Housing status: lives with significant other Occupation status: disabled Immunizations History of Influenza Vaccine: No History of Tetanus Vaccine?: No History of Pneumococcal: No History of Hepatitis B Vaccine: No History of MDRO No Allergies Coded Allergies: Iodinated Diagnostic Agents (Verified Allergy, Severe, HIVES, AIRWAY SWELLS FROM CT DYE, 01/18/17) Iodine (Verified Allergy, Severe, airway swells shut, 06/08/17) Amoxicillin (Verified Allergy, Intermediate, RASH, 06/15/17) Azithromycin (Verified Allergy, Intermediate, RASH, 06/08/17) Ceftriaxone (Verified Allergy, Intermediate, RASH, 06/04/17) Adhesives (Verified Allergy, Mild, RASH AND SORE SKIN FROM TAPE ADHESIVES , 01/18/17) Alcohol (Verified Allergy, Unknown, hives, 01/18/17) no alcohol wipes Atorvastatin (Verified Allergy, Unknown, UNKNOWN, 01/18/17) Isopropyl Alcohol (Verified Allergy, Unknown, UNKNOWN, 01/18/17) Lemon Oil (Verified Allergy, Unknown, UNKNOWN, 01/18/17) Lorazepam (Verified Allergy, Unknown, RASH, 01/18/17) Morphine (Verified Allergy, Unknown, stops heart, 06/08/17) Ondansetron (Verified Allergy, Unknown, rash, 01/18/17) Rosuvastatin (Verified Allergy, Unknown, UNKNOWN, 01/18/17) Shellfish (Verified Allergy, Unknown, UNKNOWN, 01/18/17) Sulfamethoxazole w/Trimethoprim (Verified Allergy, Unknown, UNKNOWN, ) Ciprofloxacin (Verified Adverse Reaction, Unknown, INTERFERES WITH COUMADIN, 01/18/17) Ezetimibe (Verified Adverse Reaction, Unknown, RAPID HEART BEAT, 01/18/17) Gemfibrozil (Verified Adverse Reaction, Unknown, MYALGIAS, 01/18/17) Lovastatin (Verified Adverse Reaction, Unknown, MYALGIAS, 06/08/17) Tramadol (Verified Adverse Reaction, Unknown, CHEST TIGHTNESS, 01/18/17) Medications Home Medications: Home Meds and Scripts Medications Dose Route/Sig Max Daily Dose Days Date Category Dose Instructions Coumadin (Warfarin Sod) 1 Mg Tab 1 Mg PO DAILY 06/21/17 Reported Probiotic (Lactobacillus) 1 Cap Cap 1 Cap PO DAILY 06/21/17 Reported Novolog Penfill (Insulin Aspart) 100 Unit/Ml Inj 1 Dose INJ UD 06/21/17 Reported take 22 units with breakfast, 22 units with lunch and 20 units with supper Glucose (Dextrose (Diabetic Use)) 4 Gm Chw 4 Tabs PO PRN 06/21/17 Reported Neurontin (Gabapentin) 100 Mg Cap 100 Mg PO TID 06/21/17 Reported Fentanyl 25 Mcg Tdsy 1 Patch TOP Q72H 06/21/17 Reported Welchol (Colesevelam Hcl) 625 Mg Tab 625 Mg PO D 06/21/17 Reported take 625mg daily with dinner Colace (Docusate Sodium) 100 Mg Cap 100 Mg PO BID 30 06/13/17 Reported Citalopram Hydrobromide (Citalopram) 20 Mg Tab 20 Mg PO DAILY 06/13/17 Reported Zofran (Ondansetron HCl) 4 Mg Tab 4 Mg PO PC PRN 06/10/17 Rx Humalog Kwikpen (Insulin Lispro (Human)) 100 Unit/Ml Inj 1 Dose SQ UD 06/04/17 Reported take 18 units at breakfast, 20 units at lunch, and 20 units at supper Pantoprazole Sodium (Pantoprazole) 40 Mg Tab 40 Mg PO DAILY 06/04/17 Reported Metoprolol Succinate ER (Metoprolol Succinate) 25 Mg Tabcr 25 Mg PO BID 06/04/17 Reported Colestid (Colestipol Hcl) 1 Gm Tab 2 Gm PO BID 06/04/17 Reported Cartia Xt (Diltiazem Hcl Coated Beads) 120 Mg Cap 120 Mg PO BID 06/04/17 Reported Allopurinol 100 Mg Tab 100 Mg PO DAILY 06/04/17 Reported Ventolin Hfa (Albuterol) 200 Puffs/15777 Mcg Aers 2 Puff INH QID PRN 06/04/17 Reported Vitamin C (Ascorbic Acid) 500 Mg Tab 500 Mg PO BID 12/21/16 Reported Coumadin (Warfarin Sodium) 3 Mg Tab 3 Mg PO DAILY 11/23/16 Reported Miralax (Polyethylene Glycol 3350) 1 Pow Pow 17 Gm PO DAILY 11/23/16 Reported [place]-3 (Fish Oil) 1 Ea Cap 1 Cap PO QPM 11/23/16 Reported Movantik (Naloxegol Oxalate) 12.5 Mg Tab 12.5 Mg PO QPM 11/23/16 Reported Creon 96353 (Pancrelipase (Lipase-Protease-) 1 Cap Cap 2 Cap PO TIDM 11/23/16 Reported Digox (Digoxin) 125 Mcg Tab 125 Mcg PO QAM 11/23/16 Reported Vitamin B-12 (Cyanocobalamin) 1,000 Mcg Tab 1,000 Mcg PO QAM 11/23/16 Reported Vitamin D3 (Cholecalciferol) 2,000 Unit Tab 2,000 Units PO BID 11/23/16 Reported Mag-Ox (Magnesium Oxide) 400 Mg Tab 400 Mg PO BID 03/26/16 Reported Lantus Solostar (Insulin Glargine) 100 Unit/Ml Inj 44 Units SC HS 03/26/16 Reported Carafate (Sucralfate) 1 Gm Tab 1 Gm PO QID 03/26/16 Reported DISSOLVE TABLET INTO 4OZ OF WATER FOUR TIMES DAILY Fenofibrate 145 Mg Tab 145 Mg PO QAM 06/09/15 Reported Trazodone (Trazodone HCl) 50 Mg Tab 150 Mg PO HS 06/09/15 Reported Inpatient Medications: Current Inpatient Medications Medications (Trade) Dose Ordered Sig/August Route Start Time Stop Time Status Last Admin Dose Admin Sodium Chloride 1,000 ml @ 150 mls/hr Q6H40M IV 06/21/17 20:40 07/21/17 20:39 06/22/17 10:44 150 MLS/HR Diltiazem HCl 125 mg/Dextrose 125 ml @ 0 mls/hr Q0M PRN IV 06/21/17 19:45 07/21/17 19:44 06/22/17 09:15 10 MLS/HR Ciprofloxacin/ Dextrose 400 mg/ Prmx 200 ml @ 100 mls/hr Q12 IV 06/21/17 21:00 07/01/17 20:59 06/22/17 07:29 100 MLS/HR Albuterol (Ventolin Hfa Inhaler) 2 puffs QID PRN INH 06/21/17 20:15 07/21/17 20:14 Insulin Aspart (novoLOG ASPART) SLIDING SCALE If C... ACHS SC 06/21/17 21:00 07/21/17 20:59 06/22/17 11:54 2 UNITS Insulin Glargine (Lantus Solostar Pen) 22 units HS SC 06/21/17 21:00 07/21/17 20:59 06/21/17 21:24 22 UNITS Promethazine HCl 25 mg/Sodium Chloride 51 ml @ 204 mls/hr Q6H PRN IV 06/21/17 20:15 07/21/17 20:14 Pantoprazole Sodium 40 mg/ Syringe 10 ml @ 5 mls/min DAILY@11 IV 06/22/17 11:00 07/22/17 10:59 06/22/17 10:46 5 MLS/MIN Metoprolol Tartrate (Lopressor Iv) 5 mg Q4 PRN IV 06/21/17 20:30 07/21/17 20:29 Ondansetron HCl (Zofran Odt) 4 mg Q8H PRN PO 06/21/17 23:00 07/21/17 22:59 06/21/17 23:15 4 MG Fentanyl (Duragesic Patch) 25 mcg Q72H TD 06/24/17 08:00 07/08/17 07:59 Miscellaneous (Fentanyl Patch Remove & Waste) 1 ea Q3D N/A 06/24/17 08:00 07/24/17 07:59 Miscellaneous Information (Check Fentanyl Patch Placement) 1 ea QS N/A 06/22/17 00:00 07/22/17 00:00 06/22/17 07:28 1 EA Hydromorphone HCl (Dilaudid Inj) 0.5 mg Q2H PRN IV 06/22/17 02:00 07/05/17 18:59 06/22/17 10:44 0.5 MG Magnesium Sulfate 1 gm/Prmx 100 ml @ 100 mls/hr TODAY@1045 IV 06/22/17 10:45 06/22/17 12:00 06/22/17 10:40 100 MLS/HR Naloxone HCl (Narcan Inj) 0.1 mg Q5M PRN IV 06/22/17 11:45 07/22/17 11:44 UNV Hydromorphone HCl (Dilaudid Research Management Associate) 25 mg PRN PRN IV 06/22/17 11:45 07/06/17 11:44 UNV Sodium Chloride 1,000 ml @ 15 mls/hr Q24H IV 06/22/17 11:34 07/22/17 11:33 UNV Review of Systems Review of Systems Constitutional: No see HPI, No fever, No chills, No frequent headaches, No weight loss, No problem reported Neurological: No see HPI, No dizzy, No passing out, No numbness/tingling, No seizures, No problem reported Endocrine: No see HPI, No excessive thirst, No too hot, No too cold, No tired/ sluggish, No problem reported Gastrointestinal: + abdominal pain, + nausea, + vomiting Cardiovascular: No see HPI, No heart murmur, No chest pain, No angina, No irregular heartbeat, No palpitations, No swelling ankles/feet, No problem reported Respiratory: No see HPI, No shortness of breath, No wheezing, No coughing up blood, No chronic cough, No problem reported Skin: No see HPI, No rash, No boils, No dry skin, No problem reported Musculoskeletal: No see HPI, No joint pain, No neck pain, No back pain, No arthritis, No problem reported Blood / Lymphatic: + bleed easily Ears / Nose / Throat: No see HPI, No hearing loss, No sinus, No hoarse voice, No sore throat, No problem reported Psychologic / Mental: No see HPI, No nervous, No trouble remembering, No difficulty sleeping, No problem reported Female : + kidney stones All Other Systems: Reviewed and Negative Physical Exam Vital Signs: Vital Signs Past 12 Hours Date Time Temp Pulse Resp B/P (MAP) Pulse Ox O2 Delivery O2 Flow Rate FiO2 06/22/17 08:00 Room Air 06/22/17 07:10 36.9 95 20 113/79 (90) 91 Room Air 06/22/17 04:00 Room Air 06/22/17 03:14 36.8 104 18 122/69 (86) 92 Room Air 06/22/17 00:00 Room Air Physical Exam: General Appearance: WD/WN, + mild distress (uncomfortable appearing) Eyes: bilateral eyes normal inspection ENT: hearing grossly normal Neck: supple Respiratory/Chest: no respiratory distress, no accessory muscle use Cardiovascular: no edema Gastrointestinal: Abdomen: LUQ tenderness Renal: cva tenderness (left) Extremities: no pedal edema Neurologic/Psychiatric: alert, normal mood/affect, oriented x 3 Skin: normal color Lymphatic: no adenopathy Assessment & Plan Assessment & Plan Left proximal ureteral calc with renal colic - reviewed her history - I suspect the stone is the predominant cause of her current pain - recommend cysto with stent placement - possible URS/LL - risks, benefits, and alternatives discussed with her
[2017-06-22] MEDS ORDERED: MIDAZOLAM HCL 1 MG/ML 2ML VIAL ONE (12:17)
[2017-06-22] MEDS ORDERED: PROPOFOL IV EMULSION 10 MG/ML 20 ML VIAL IV ONE (12:17)
[2017-06-22] MEDS ORDERED: FENTANYL CITRATE INJ 50 MCG/1 ML 2 ML VIAL ONE (12:17)
[2017-06-22] MEDS ORDERED: ATROPINE SULFATE 0.1 MG/ML 5ML SYR IV PRN (12:30)
[2017-06-22] MEDS ORDERED: FENTANYL CITRATE INJ 50 MCG/1 ML 2 ML VIAL IV PRN (12:30)
[2017-06-22] MEDS ORDERED: EpHEDrine SULFATE INJ 50 MG/ML AMP IV PRN (12:30)
[2017-06-22] MEDS ORDERED: Cysto-Conray II 17.2% 250ML BOTTLE ONE (13:12)
[2017-06-22] MEDS ORDERED: LIDOCAINE HCL 2% 2 ML VIAL (20MG/ML) ONE (13:37)
[2017-06-22] MEDS ORDERED: CEFAZOLIN SOD 1 GM VIAL ONE (13:44)
[2017-06-22] MEDS ORDERED: CLINDAMYCIN PHOS 150 MG/ML 2 ML VIAL ONE (13:46)
--- NOTE | 2017-06-22 13:54 | [facility] Operative Report ---
Operative Report Operative Date Jun 22, 2017. Pre-Operative Diagnosis Left ureteral stone and hydronephrosis Post-Operative Diagnosis Left ureteral stone and hydronephrosis Procedure(s) Performed Cystoscopy, left ureteral stent placement (6 Ivorian by 26 cm) Surgeon Dejah Zarate Estimated Blood Loss 0cc Drains None Anesthesia Type MAC Complication(s) none Disposition yes Recovery Room / PACU Indications severe left renal colic and left upj stone Description of Procedure Patient was identified in the preoperative holding area appropriate informed consents reviewed and completed and the patient was transported to the operating suite. Upon arrival she received appropriate sedation and 600 mg of clindamycin. She was placed in dorsal lithotomy position where she was sterilely prepped and draped in standard fashion. I began the case by passing a 22 Ivorian cystoscope with 30 lens. Inspection of the bladder revealed no abnormalities. Ureteral orifices were in orthotopic position. I cannulated the left ureteral orifice with a sensor wire and a 6 Ivorian open-ended catheter. The wire advanced to the kidney without difficulty. Did appear that there is an opacity consistent with a stone that had been pushed to the lower pole of the kidney. Subsequently placed a 6 Ivorian by 26 cm double-J ureteral stent over the wire. There is a good curl in the upper pole of the kidney as well as in the bladder. The case was subsequently concluded after draining the bladder. She was taken to the PACU in stable condition. I attest to the content of the Intraoperative Record and any orders documented therein. Any exceptions are noted below.
--- NOTE | 2017-06-22 14:22 | Anesthesiology Progress Note ---
Anesthesia Post Op Note Date & Time Jun 22, 2017 at 14:22 Vital Signs Pain Intensity: 0 Vital Signs Past 12 Hours Date Time Temp Pulse Resp B/P (MAP) Pulse Ox O2 Delivery O2 Flow Rate FiO2 06/22/17 14:15 36.2 88 16 116/71 93 Nasal Cannula 3 06/22/17 14:05 83 18 115/73 93 Oxymask 5 06/22/17 13:59 36.0 80 14 100/66 95 Oxymask 5 06/22/17 12:05 90 Room Air 06/22/17 11:15 37.1 69 20 109/71 (84) 90 Room Air 06/22/17 08:00 Room Air 06/22/17 07:10 36.9 95 20 113/79 (90) 91 Room Air 06/22/17 04:00 Room Air 06/22/17 03:14 36.8 104 18 122/69 (86) 92 Room Air Notes Mental Status: alert / awake / arousable, participated in evaluation Pt Amnestic to Procedure: Yes Nausea / Vomiting: adequately controlled Pain: adequately controlled Airway Patency, RR, SpO2: stable & adequate BP & HR: stable & adequate Hydration State: stable & adequate Anesthetic Complications: no major complications apparent
--- NOTE | 2017-06-22 14:32 | DIAGNOSTIC IMAGING REPORT ---
KUB CLINICAL HISTORY: LT CYSTO/STENT COMPARISON STUDY: CT of the abdomen and pelvis June 21, 2017. Fluoroscopy time: 5.9 seconds. FINDINGS: 2 fluoroscopic images from a left retrograde exam were submitted for interpretation. These images demonstrate placement of a left ureteral stent. Stent appears appropriately positioned. IMPRESSION: Fluoroscopic images from left retrograde exam with ureteral stent insertion. Electronically signed by: Baron Garcia M.D. 06/22/2017 2:31 PM Dictated Date/Time: 06/22/2017 2:30 PM
[2017-06-22] MEDS: ONDANSETRON 4MG OD TAB PO PRN ×2 (15:07→23:07)
[2017-06-22] MEDS: HYDROmorphone HCL 0.5MG/ML 50 ML CASSETTE IV PRN (15:13)
--- NOTE | 2017-06-22 15:48 | Hospitalist Progress Note ---
Hospitalist Progress Note Date of Service Jun 22, 2017. Subjective Pt evaluation today including: conversation w/ patient, physical exam, chart review, lab review, review of studies, review of inpatient medication list Pain: 10/10 left flank, left back and left abdominal pain PO Intake: NPO Voiding: voiding difficulty (dysuria) The patient complains of 10/10 cramping and sharp pain in her left flank, left lower back, and left abdomen. She states this pain is worse with deep breaths, movement and palpation. She reports nausea and states she had vomited earlier. She notes shortness of breath, chills and sweats. She also complains of dysuria. She states she has not had a bowel movement in several days. The patient denies fevers, chest pain, palpitations, claudication, cough, wheezing, hematuria, urinary retention, paralysis, weakness, numbness and tingling. Additional Comments: See HPI for pertinent positives and negatives. All other systems reviewed and negative. Objective Vital Signs Date Time Temp Pulse Resp B/P (MAP) Pulse Ox O2 Delivery O2 Flow Rate FiO2 06/22/17 14:38 36.8 80 16 124/71 (88) 92 Room Air 06/22/17 14:15 36.2 88 16 116/71 93 Nasal Cannula 3 06/22/17 14:05 83 18 115/73 93 Oxymask 5 06/22/17 13:59 36.0 80 14 100/66 95 Oxymask 5 06/22/17 12:05 90 Room Air 06/22/17 11:15 37.1 69 20 109/71 (84) 90 Room Air 06/22/17 08:00 Room Air 06/22/17 07:10 36.9 95 20 113/79 (90) 91 Room Air 06/22/17 04:00 Room Air 06/22/17 03:14 36.8 104 18 122/69 (86) 92 Room Air 06/22/17 00:00 Room Air 06/21/17 23:41 37.1 100 20 136/66 (89) 92 Room Air 06/21/17 21:28 37.2 110 20 142/91 (108) 94 Room Air 06/21/17 20:38 93 Room Air 06/21/17 20:38 36.8 86 20 137/77 (97) 93 Room Air 06/21/17 20:01 95 24 143/82 91 06/21/17 19:46 101 24 135/70 91 06/21/17 19:31 115 23 127/68 90 06/21/17 19:27 Room Air 06/21/17 19:16 113 23 135/83 91 06/21/17 19:01 120 24 144/74 91 06/21/17 18:46 122 24 147/86 91 06/21/17 18:31 121 27 133/93 96 06/21/17 18:16 106 20 131/89 93 06/21/17 18:01 102 21 152/93 95 06/21/17 17:46 93 18 118/77 97 06/21/17 17:35 135/87 06/21/17 17:16 105 24 151/84 95 06/21/17 17:10 112 20 108/78 92 Room Air 06/21/17 16:32 105 06/21/17 15:38 36.7 130 15 122/73 95 Room Air Physical Exam Notes: General appearance: +Obese. Moderate distress secondary to pain. Well- developed, well-nourished Head: Normocephalic, atraumatic Eyes: Normal inspection, PERRL, EOMI ENT: Normal ENT inspection, hearing grossly normal, pharynx normal Neck: Supple, no JVD, trachea midline Respiratory/Chest: Lungs clear to auscultation, normal breath sounds, no respiratory distress Cardiovascular: +Irregularly irregular, rate controlled. No gallop, no murmur Abdomen/GI: +Diffusely TTP, most marked in LLQ and LUQ, left flank. Normal bowel sounds, soft Extremities/Musculoskeletal: Normal inspection, no calf tenderness, no pedal edema Neurological/Psych: Alert, normal mood/affect, oriented x 3 Skin: Normal color, warm/dry, no rash Laboratory Results Last 24 Hours Test 06/21/17 15:36 06/21/17 17:38 06/21/17 20:44 06/22/17 05:48 White Blood Count 13.15 K/uL 10.60 K/uL Red Blood Count 5.14 M/uL 4.60 M/uL Hemoglobin 15.1 g/dL 13.3 g/dL Hematocrit 43.8 % 39.8 % Mean Corpuscular Volume 85.2 fL 86.5 fL Mean Corpuscular Hemoglobin 29.4 pg 28.9 pg Mean Corpuscular Hemoglobin Concent 34.5 g/dl 33.4 g/dl Platelet Count 281 K/uL 187 K/uL Mean Platelet Volume 9.8 fL 10.3 fL Neutrophils (%) (Auto) 69.7 % Lymphocytes (%) (Auto) 19.2 % Monocytes (%) (Auto) 10.4 % Eosinophils (%) (Auto) 0.2 % Basophils (%) (Auto) 0.2 % Neutrophils # (Auto) 9.16 K/uL Lymphocytes # (Auto) 2.53 K/uL Monocytes # (Auto) 1.37 K/uL Eosinophils # (Auto) 0.03 K/uL Basophils # (Auto) 0.02 K/uL RDW Standard Deviation 41.9 fL 42.8 fL RDW Coefficient of Variation 13.4 % 13.6 % Immature Granulocyte % (Auto) 0.3 % Immature Granulocyte # (Auto) 0.04 K/uL Prothrombin Time 35.0 SECONDS 14.6 SECONDS Prothromb Time International Ratio 3.4 1.4 Sodium Level 137 mmol/L 137 mmol/L Potassium Level 3.7 mmol/L 3.5 mmol/L Chloride Level 102 mmol/L 106 mmol/L Carbon Dioxide Level 25 mmol/L 25 mmol/L Anion Gap 10.0 mmol/L 6.0 mmol/L Blood Urea Nitrogen 9 mg/dl 6 mg/dl Creatinine 0.65 mg/dl 0.43 mg/dl Est Creatinine Clear Calc Drug Dose 95.4 ml/min 144.2 ml/min Estimated GFR () 110.3 126.3 Estimated GFR (Non- 95.2 109.0 BUN/Creatinine Ratio 14.6 14.6 Bedside Glucose 131 mg/dl 153 mg/dl Random Glucose 132 mg/dl 142 mg/dl Calcium Level 11.0 mg/dl 9.3 mg/dl Magnesium Level 1.7 mg/dl 1.7 mg/dl Total Bilirubin 0.5 mg/dl Direct Bilirubin < 0.1 mg/dl Aspartate Amino Transf (AST/SGOT) 11 U/L Alanine Aminotransferase (ALT/SGPT) 32 U/L Alkaline Phosphatase 100 U/L Total Protein 7.7 gm/dl Albumin 3.4 gm/dl Lipase 505 U/L Digoxin Level 0.5 ng/ml Hepatitis C Antibody Screen NEG Urine Color YELLOW Urine Appearance CLOUDY Urine pH 6.5 Urine Specific [place] 1.019 Urine Protein TRACE Urine Glucose (UA) NEG Urine Ketones NEG Urine Occult Blood 3+ Urine Nitrite NEG Urine Bilirubin NEG Urine Urobilinogen NEG Urine Leukocyte Esterase SMALL Urine WBC (Auto) 10-30 /hpf Urine RBC (Auto) >30 /hpf Urine Hyaline Casts (Auto) 10-30 /lpf Urine Epithelial Cells (Auto) >30 /lpf Urine Bacteria (Auto) 2+ Test 06/22/17 06:23 06/22/17 10:29 06/22/17 10:56 Bedside Glucose 130 mg/dl 198 mg/dl Troponin I < 0.015 ng/ml Assessment and Plan 61 y/o female with a history of HTN, HLD, a-fib, DM II, neuropathy, pancreatic cancer s/p Whipple procedure, chronic pancreatitis, depression, gout, and GERD who presents with abdominal pain, nausea, and vomiting. The patient was found to have acute on chronic pancreatitis, a-fib with RVR, and left obstructing ureteral stone with hydronephrosis. A-fib with RVR--stable/improving -Admit to telemetry. Pt in a-fib/flutter with HR 80s-110s overnight, has been in 80s-90s today -Has been on diltiazem drip and was NPO without home meds. Now restarting home oral diltiazem, will d/c diltiazem drip at 2000 to receive oral dilt at 2100 -D/C Lopressor IV -Continue digoxin 125 mcg PO qd, diltiazem 120 mg PO BID, Toprol XL 25 mg PO BID -Will restart warfarin 4 mg PO qd now. Pt received vitamin K, so this will take some time to become therapeutic -INR 1.4 on 06/22, received 5 mg vitamin K yesterday Left ureteral stone w/hydronephrosis--stable -9 mm obstructing stone in left proximal ureter w/mild hydronephrosis -Consult urology, appreciate recs: cystoscopy and left ureteral stent placed today -Cipro 400 mg IV BID -Start clear liquid diet, decrease NSS to 100 cc/hr -UA + bacteria, WBCs, leuks, and occult blood. Urine culture with strep species , further identification and sensitivities pending -Zofran and promethazine prn nausea/vomiting Acute on chronic pancreatitis, pancreatic cancer s/p Whipple--stable - Dilaudid NEWS ASSISTANT as pain uncontrolled - Continue fentanyl patch - Consult GI, appreciate recs - CT showed worsening acute pancreatitis from 06/13, lipase was 505 (had been WNL in May) - Will start clears, restart home meds including pancreatic enzymes Hypomagnesemia--ongoing - Mag 1.7 on 06/22 despite replacement yesterday - Give another 1 gm mag sulfate IV, continue to monitor. Goal mag over 2 due to a-fib with RVR HTN, HLD--stable -Restart metoprolol and diltiazem as above, Welchol 625 mg PO qd, Colestid 2 gm PO BID, fenofibrate 145 mg PO qd DM II -Home Lantus reduced to 22 units SC qd due to NPO, can increase back to home dose if tolerates diet -Insulin sliding scale -Check BSGs q ac and qhs -Check HgbA1c in am Neuropathy -Restart gabapentin 100 mg PO TID Depression/insomnia -Restart citalopram 20 mg PO qd and trazodone 150 mg PO hs Gout -Restart allopurinol 100 mg PO qd GERD -D/C IV Protonix, convert to PO DVT prophylaxis -Restarting warfarin, will hold off on bridging for now due to procedure today -SCDs Code Status -Level I, FULL RESUSCITATION STATUS
[2017-06-22] MEDS ORDERED: WARFARIN SOD 1 MG TAB PO SCH (16:00)
[2017-06-22] MEDS ORDERED: WARFARIN SOD 4 MG TAB PO SCH (16:00)
[2017-06-22] MEDS: PANCREAZE (LIPASE 10,500U) CAP PO SCH (17:09)
--- NOTE | 2017-06-22 17:09 | Gastrointestinal Consultation ---
Gastrointestinal Consultation Date of Consultation: Jun 22, 2017 Attending Physician: Dr. Ngo Consulting Physician: Dr. Nolasco Reason for Consultation: Chronic Pancreatitis History of Present Illness Patient is a 61 year old female patient of Dr. Ngo who was recently admitted from 06/04 to 06/12 and again 06/13 to 06/16 for pancreatitis returned to ED yesterday for severe epigastric and left upper abd pain radiating to the left shoulder blade. She tells me that this pain returned soon after her discharge. She is crying in pain. She has hx of classic pancreatoduodenectomy for pancreatic cancer in 2013 done by [facility] (see scanned in records on most recent prior admission for op report). She is followed by Dr. Murguia in [place] and has not seen the surgeons at [facility] for "a year or two." She does have chronic abd pain and had celiac plexus block in 01/[address] Chelsey Lopez. Had repeat block 2 weeks ago which resolved her pain symptoms almost immediately but didn't last then was started on Nucynta at the most recent hospitalization which initially provided relief. CT on arrival with worsened acute pancreatitis as well as an obstructing ureteral stone. Lipase on arrival 505. LFTs remain normal. Past Medical/Surgical History Medical Problems: (1) Abdominal pain Status: Acute (2) Acute on chronic pancreatitis Status: Acute (3) Atrial fibrillation with RVR Status: Acute (4) Back pain Status: Acute (5) Diffuse abdominal pain Status: Acute (6) Flank pain Status: Acute (7) Hypokalemia Status: Acute (8) Left flank pain Status: Acute (9) Pancreatitis Status: Acute (10) UTI (urinary tract infection) Status: Acute Past Medical History: 1. Pancreatic cancer 2. A-fib 3. Chronic pancreatitis 4. DM 4. Aneurysm 5. Diverticulitis 6. Kidney stones 7. CKD Past Surgical History: 1. Appendectomy 2. Cholecystectomy 3. Classic pancreaticoduodenectomy (Whipple) with lysis of adhesions in 2013 at [facility]. Family History FH: cancer FH: heart disease Hypertension Kidney disease Kidney stones Seizures Social History Smoking Status: Current Some Day Smoker Alcohol Use: none Drug Use: none Marital Status: Housing Status: lives with family Occupation Status: disabled Allergies Coded Allergies: Iodinated Diagnostic Agents (Verified Allergy, Severe, HIVES, AIRWAY SWELLS FROM CT DYE, 01/18/17) Iodine (Verified Allergy, Severe, airway swells shut, 06/08/17) Amoxicillin (Verified Allergy, Intermediate, RASH, 06/15/17) Azithromycin (Verified Allergy, Intermediate, RASH, 06/08/17) Ceftriaxone (Verified Allergy, Intermediate, RASH, 06/04/17) Adhesives (Verified Allergy, Mild, RASH AND SORE SKIN FROM TAPE ADHESIVES , 01/18/17) Alcohol (Verified Allergy, Unknown, hives, 01/18/17) no alcohol wipes Atorvastatin (Verified Allergy, Unknown, UNKNOWN, 01/18/17) Isopropyl Alcohol (Verified Allergy, Unknown, UNKNOWN, 01/18/17) Lemon Oil (Verified Allergy, Unknown, UNKNOWN, 01/18/17) Lorazepam (Verified Allergy, Unknown, RASH, 01/18/17) Morphine (Verified Allergy, Unknown, stops heart, 06/08/17) Rosuvastatin (Verified Allergy, Unknown, UNKNOWN, 01/18/17) Shellfish (Verified Allergy, Unknown, UNKNOWN, 01/18/17) Sulfamethoxazole w/Trimethoprim (Verified Allergy, Unknown, UNKNOWN, ) Ciprofloxacin (Verified Adverse Reaction, Unknown, INTERFERES WITH COUMADIN, 01/18/17) Ezetimibe (Verified Adverse Reaction, Unknown, RAPID HEART BEAT, 01/18/17) Gemfibrozil (Verified Adverse Reaction, Unknown, MYALGIAS, 01/18/17) Lovastatin (Verified Adverse Reaction, Unknown, MYALGIAS, 06/08/17) Ondansetron (Verified Adverse Reaction, Unknown, rash, 06/22/17) Tramadol (Verified Adverse Reaction, Unknown, CHEST TIGHTNESS, 01/18/17) Current Medications Home Meds and Scripts Medications Dose Route/Sig Max Daily Dose Days Date Category Dose Instructions Coumadin (Warfarin Sod) 1 Mg Tab 1 Mg PO DAILY 06/21/17 Reported Probiotic (Lactobacillus) 1 Cap Cap 1 Cap PO DAILY 06/21/17 Reported Novolog Penfill (Insulin Aspart) 100 Unit/Ml Inj 1 Dose INJ UD 06/21/17 Reported take 22 units with breakfast, 22 units with lunch and 20 units with supper Glucose (Dextrose (Diabetic Use)) 4 Gm Chw 4 Tabs PO PRN 06/21/17 Reported Neurontin (Gabapentin) 100 Mg Cap 100 Mg PO TID 06/21/17 Reported Fentanyl 25 Mcg Tdsy 1 Patch TOP Q72H 06/21/17 Reported Welchol (Colesevelam Hcl) 625 Mg Tab 625 Mg PO D 06/21/17 Reported take 625mg daily with dinner Colace (Docusate Sodium) 100 Mg Cap 100 Mg PO BID 30 06/13/17 Reported Citalopram Hydrobromide (Citalopram) 20 Mg Tab 20 Mg PO DAILY 06/13/17 Reported Zofran (Ondansetron HCl) 4 Mg Tab 4 Mg PO PC PRN 06/10/17 Rx Humalog Kwikpen (Insulin Lispro (Human)) 100 Unit/Ml Inj 1 Dose SQ UD 06/04/17 Reported take 18 units at breakfast, 20 units at lunch, and 20 units at supper Pantoprazole Sodium (Pantoprazole) 40 Mg Tab 40 Mg PO DAILY 06/04/17 Reported Metoprolol Succinate ER (Metoprolol Succinate) 25 Mg Tabcr 25 Mg PO BID 06/04/17 Reported Colestid (Colestipol Hcl) 1 Gm Tab 2 Gm PO BID 06/04/17 Reported Cartia Xt (Diltiazem Hcl Coated Beads) 120 Mg Cap 120 Mg PO BID 06/04/17 Reported Allopurinol 100 Mg Tab 100 Mg PO DAILY 06/04/17 Reported Ventolin Hfa (Albuterol) 200 Puffs/18533 Mcg Aers 2 Puff INH QID PRN 06/04/17 Reported Vitamin C (Ascorbic Acid) 500 Mg Tab 500 Mg PO BID 12/21/16 Reported Coumadin (Warfarin Sodium) 3 Mg Tab 3 Mg PO DAILY 11/23/16 Reported Miralax (Polyethylene Glycol 3350) 1 Pow Pow 17 Gm PO DAILY 11/23/16 Reported [place]-3 (Fish Oil) 1 Ea Cap 1 Cap PO QPM 11/23/16 Reported Movantik (Naloxegol Oxalate) 12.5 Mg Tab 12.5 Mg PO QPM 11/23/16 Reported Creon 02862 (Pancrelipase (Lipase-Protease-) 1 Cap Cap 2 Cap PO TIDM 11/23/16 Reported Digox (Digoxin) 125 Mcg Tab 125 Mcg PO QAM 11/23/16 Reported Vitamin B-12 (Cyanocobalamin) 1,000 Mcg Tab 1,000 Mcg PO QAM 11/23/16 Reported Vitamin D3 (Cholecalciferol) 2,000 Unit Tab 2,000 Units PO BID 11/23/16 Reported Mag-Ox (Magnesium Oxide) 400 Mg Tab 400 Mg PO BID 03/26/16 Reported Lantus Solostar (Insulin Glargine) 100 Unit/Ml Inj 44 Units SC HS 03/26/16 Reported Carafate (Sucralfate) 1 Gm Tab 1 Gm PO QID 03/26/16 Reported DISSOLVE TABLET INTO 4OZ OF WATER FOUR TIMES DAILY Fenofibrate 145 Mg Tab 145 Mg PO QAM 06/09/15 Reported Trazodone (Trazodone HCl) 50 Mg Tab 150 Mg PO HS 06/09/15 Reported Review of Systems Constitutional: No fever, No chills, No sweats, No weight loss, No weakness Eyes: No eye pain, No redness ENT: No sore throat, No trouble swallowing, No pain on swallowing Respiratory: No cough, No wheezing, No shortness of breath, No dyspnea on exertion Cardiac: No chest pain, No edema, No palpitations Abdomen: + see HPI, + pain, + nausea, + vomiting Neuro: No memory loss, No weakness, No numbness/tingling, No vertigo, No balance problems Psych: No depression symptoms, No anxiety, No insomnia Heme: No abnormal bleeding/bruising, No night sweats Endo: No excessive thirst, No excessive urination Skin: No rash, No itch, No new/changing skin lesions, No jaundice Physical Exam Date Time Temp Pulse Resp B/P (MAP) Pulse Ox O2 Delivery O2 Flow Rate FiO2 06/22/17 15:54 36.9 93 120/70 (87) 2 Nasal Cannula 06/22/17 15:52 36.9 97 20 120/72 (88) 93 Nasal Cannula 2.0 06/22/17 15:23 79 18 122/72 (89) 91 Nasal Cannula 2.0 06/22/17 15:06 86 16 125/75 (92) 85 Room Air 06/22/17 14:38 36.8 80 16 124/71 (88) 92 Room Air 06/22/17 14:15 36.2 88 16 116/71 93 Nasal Cannula 3 06/22/17 14:05 83 18 115/73 93 Oxymask 5 06/22/17 13:59 36.0 80 14 100/66 95 Oxymask 5 06/22/17 12:05 90 Room Air 06/22/17 11:15 37.1 69 20 109/71 (84) 90 Room Air 06/22/17 08:00 Room Air 06/22/17 07:10 36.9 95 20 113/79 (90) 91 Room Air 06/22/17 04:00 Room Air 06/22/17 03:14 36.8 104 18 122/69 (86) 92 Room Air 06/22/17 00:00 Room Air 06/21/17 23:41 37.1 100 20 136/66 (89) 92 Room Air 06/21/17 21:28 37.2 110 20 142/91 (108) 94 Room Air 06/21/17 20:38 93 Room Air 06/21/17 20:38 36.8 86 20 137/77 (97) 93 Room Air 06/21/17 20:01 95 24 143/82 91 06/21/17 19:46 101 24 135/70 91 06/21/17 19:31 115 23 127/68 90 06/21/17 19:27 Room Air 06/21/17 19:16 113 23 135/83 91 06/21/17 19:01 120 24 144/74 91 06/21/17 18:46 122 24 147/86 91 06/21/17 18:31 121 27 133/93 96 06/21/17 18:16 106 20 131/89 93 06/21/17 18:01 102 21 152/93 95 06/21/17 17:46 93 18 118/77 97 06/21/17 17:35 135/87 06/21/17 17:16 105 24 151/84 95 06/21/17 17:10 112 20 108/78 92 Room Air General Appearance: + moderate distress (tearful with pain) Eyes: normal inspection, EOMI Neck: supple, no adenopathy, thyroid normal, no JVD Respiratory/Chest: chest non-tender, lungs clear, normal breath sounds, no accessory muscle use Cardiovascular: regular rate, rhythm, no JVD, no murmur Abdomen: normal bowel sounds, soft, no organomegaly, + abnormal bowel sounds ( hypoactive), + tenderness (very tender across the entire upper abdomen) Extremities: normal inspection, no pedal edema, normal capillary refill Neurologic/Psych: alert, normal mood/affect, oriented x 3 Skin: normal color, no jaundice, warm/dry, no rash Laboratory Results Last 24 Hours Test 06/21/17 17:38 06/21/17 20:44 06/22/17 05:48 06/22/17 06:23 Urine Color YELLOW Urine Appearance CLOUDY Urine pH 6.5 Urine Specific [place] 1.019 Urine Protein TRACE Urine Glucose (UA) NEG Urine Ketones NEG Urine Occult Blood 3+ Urine Nitrite NEG Urine Bilirubin NEG Urine Urobilinogen NEG Urine Leukocyte Esterase SMALL Urine WBC (Auto) 10-30 /hpf Urine RBC (Auto) >30 /hpf Urine Hyaline Casts (Auto) 10-30 /lpf Urine Epithelial Cells (Auto) >30 /lpf Urine Bacteria (Auto) 2+ Bedside Glucose 153 mg/dl 130 mg/dl White Blood Count 10.60 K/uL Red Blood Count 4.60 M/uL Hemoglobin 13.3 g/dL Hematocrit 39.8 % Mean Corpuscular Volume 86.5 fL Mean Corpuscular Hemoglobin 28.9 pg Mean Corpuscular Hemoglobin Concent 33.4 g/dl RDW Standard Deviation 42.8 fL RDW Coefficient of Variation 13.6 % Platelet Count 187 K/uL Mean Platelet Volume 10.3 fL Prothrombin Time 14.6 SECONDS Prothromb Time International Ratio 1.4 Sodium Level 137 mmol/L Potassium Level 3.5 mmol/L Chloride Level 106 mmol/L Carbon Dioxide Level 25 mmol/L Anion Gap 6.0 mmol/L Blood Urea Nitrogen 6 mg/dl Creatinine 0.43 mg/dl Est Creatinine Clear Calc Drug Dose 144.2 ml/min Estimated GFR () 126.3 Estimated GFR (Non- 109.0 BUN/Creatinine Ratio 14.6 Random Glucose 142 mg/dl Calcium Level 9.3 mg/dl Magnesium Level 1.7 mg/dl Test 06/22/17 10:29 06/22/17 10:56 Troponin I < 0.015 ng/ml Bedside Glucose 198 mg/dl CT abd/pelvis 06/21/17: 1. Suboptimal examination without oral and IV contrast. 2. Extensive postoperative changes are identified including previous resection of the pancreatic head, cholecystectomy, hysterectomy, and distal gastrectomy with gastrojejunostomy. A small bowel anastomosis is seen in the pelvis and there is evidence of previous sigmoid colon resection. 3. There is evidence of acute pancreatitis. This has modestly worsened as compared to the 06/13/2017 examination. No organized peripancreatic fluid collection is identified. 4. A 9 mm obstructing calculus is again seen in the left proximal ureter. This causes mild hydronephrosis. Follow-up with urology is recommended. 5. Hepatomegaly and hepatic steatosis. 6. Nonobstructing right renal calculi are noted. 7. Additional findings as above. Impression Patient is a 61 year old female with acute on chronic pancreatitis S/P Whipple ( 2013). Also with obstructing ureteral stone. Plan 1. IV fluids, though less aggressive than typical as in A-fib. 2. We are unable to get MRCP as pt has clips (aneurysm). 3. Will review op report carefully, but appears that we would not be able to provide ERCP here due to altered anatomy from Whipple. 4. Will need tx for acute pancreatitis and after resolution of acute symptoms, will need f/u for possible ERCP to r/o pancreatic duct stones at [facility] or other tertiary care facility. Attending Addm: I have seen, examined and agree with the plan as outlined above by YARED Brian. -No obvious etiology of recurrent pancreatitis, one consideration would be ductal stenosis at jejunum, MRCP might help, however, has metal aneurysmal clips in head -Supportive care -IVF -Pain control -Had urological stent placed today and now has INSULATION ENGINEMAN
[2017-06-22] MEDS: DIGOXIN 0.125 MG TAB PO SCH (17:10)
[2017-06-22] MEDS: SUCRALFATE 1 GM TAB PO SCH ×2 (17:11→19:47)
[2017-06-22] MEDS: PROMETHAZINE HCL INJ 25 MG in SODIUM CHLORIDE 0.9% 50ML 50 ML IV PRN (19:47)
[2017-06-22] MEDS: GABAPENTIN 100 MG CAP PO SCH (19:48)
[2017-06-22] MEDS: TRAZODONE HCL 50 MG TAB PO SCH (19:49)
[2017-06-22] MEDS: DOCUSATE SODIUM 100 MG CAP PO SCH (19:50)
[2017-06-22] MEDS: MAGNESIUM OXIDE 400 MG TAB PO SCH (19:50)
[2017-06-22] MEDS: METOPROLOL SUCC 25MG EXT REL TAB PO SCH (19:50)
[2017-06-22] MEDS: COLESTIPOL HCL 1 GM TAB PO SCH (21:04)
[2017-06-22] MEDS: DILTIAZEM HCL 120 MG CAPCR PO SCH (21:05)
[2017-06-22] MEDS: INSULIN GLARGINE SOLOSTAR 100 UNITS/ML 3 ML PEN SC SCH (21:11)
[2017-06-22] MEDS ORDERED: [UNRECOGNIZED DRUG - REMARK] ONE (23:45)
[2017-06-23] VITALS (9 sets, daily range): BP systolic 96–132; BP diastolic 56–76; PULSE 62–84; TEMP 36.5–37.3; O2SAT 91–95
[2017-06-23] MEDS: SODIUM CHLORIDE 0.9% 1000ML 1,000 ML IV SCH ×3 (03:49→16:13)
[2017-06-23 05:42] LABS: HEMATOCRIT 36.3 % (37-47); HEMOGLOBIN 11.9 g/dL (12.0-16.0); MEAN CELL VOLUME 87.3 fL (80-100); MEAN CORPUSCULAR HEMOGLOBIN 28.6 pg (25-34); MEAN CORPUSCULAR HGB CONC 32.8 g/dl (32-36); MEAN PLATELET VOLUME 9.6 fL (7.4-10.4); PLATELET COUNT 185 K/uL (130-400); RED CELL DISTRIBUTION WIDTH CV 13.6 % (11.5-14.5); WHITE BLOOD COUNT 8.47 K/uL (4.8-10.8)
[2017-06-23 05:50] LABS: INR 1.2 (0.9-1.1)
[2017-06-23 06:20] LABS: CALCIUM 9.8 mg/dl (8.5-10.1); CREATININE 0.5 mg/dl (0.60-1.20); POTASSIUM 3.5 mmol/L (3.5-5.1)
[2017-06-23 06:59] LABS: HEMOGLOBIN A1C 7.9 % (4.5-5.6)
[2017-06-23] MEDS: SUCRALFATE 1 GM TAB PO SCH ×5 (08:13→21:16)
[2017-06-23] MEDS: CIPROFLOXACIN / D5W 400 MG in PREMIXED IN D5W 200 ML IV SCH ×2 (08:14→22:29)
[2017-06-23] MEDS: DILTIAZEM HCL 120 MG CAPCR PO SCH ×2 (08:16→21:19)
[2017-06-23] MEDS: MAGNESIUM OXIDE 400 MG TAB PO SCH ×2 (08:16→21:18)
[2017-06-23] MEDS: METOPROLOL SUCC 25MG EXT REL TAB PO SCH ×2 (08:17→21:20)
[2017-06-23] MEDS: GABAPENTIN 100 MG CAP PO SCH ×3 (08:18→21:17)
[2017-06-23] MEDS: PANCREAZE (LIPASE 10,500U) CAP PO SCH ×4 (08:18→17:53)
[2017-06-23] MEDS: PANTOprazole SOD 40 MG TAB PO SCH (08:19)
[2017-06-23] MEDS: CITALOPRAM 20 MG TAB PO SCH (08:19)
[2017-06-23] MEDS: POLYETHYLENE (MIRALAX) 17 GM PACK PO SCH (08:19)
[2017-06-23] MEDS: DOCUSATE SODIUM 100 MG CAP PO SCH ×2 (08:19→21:00)
[2017-06-23] MEDS: ALLOPURINOL 100 MG TAB PO SCH (08:22)
[2017-06-23] MEDS: FENOFIBRATE 145 MG TAB PO SCH (08:23)
--- NOTE | 2017-06-23 08:23 | Anesthesiology Progress Note ---
Anesthesia Post Op Note Date & Time Jun 23, 2017 at 08:23 Vital Signs Pain Intensity: 8.0 Vital Signs Past 12 Hours Date Time Temp Pulse Resp B/P (MAP) Pulse Ox O2 Delivery O2 Flow Rate FiO2 06/23/17 07:19 36.5 62 16 132/76 (94) 95 Room Air 06/23/17 04:23 36.8 82 18 103/69 (80) 92 Nasal Cannula 2.0 06/23/17 04:15 Nasal Cannula 2.0 06/23/17 00:05 Nasal Cannula 2.0 06/22/17 23:16 36.9 93 20 115/70 (85) 91 Nasal Cannula 2.0 Notes Mental Status: alert / awake / arousable, participated in evaluation Pt Amnestic to Procedure: Yes Nausea / Vomiting: adequately controlled Pain: adequately controlled Airway Patency, RR, SpO2: stable & adequate BP & HR: stable & adequate Hydration State: stable & adequate Anesthetic Complications: no major complications apparent patient currently on dilaudid sound person for pain control. rates pain 8/10 however appeared drowsy.
[2017-06-23] MEDS: INSULIN ASPART 100 UNITS/ML 3 ML PEN SC SCH ×5 (08:33→21:00)
--- NOTE | 2017-06-23 09:17 | Progress Note ---
Subjective Date of Service: Jun 23, 2017. Subjective Pt evaluation today including: conversation w/ patient, chart review, lab review Voiding: no voiding problems 61 yo female s/p left ureteral stent for obstructing proximal left stone. Pt c/o severe left abdominal and flank pain this morning. She is tearful. C/o nausea as well. Denies vomiting. + gross hematuria. + frequency. UC&S growing streptococcus. Problem List Medical Problems: (1) Abdominal pain Status: Acute (2) Acute on chronic pancreatitis Status: Acute (3) Atrial fibrillation with RVR Status: Acute (4) Back pain Status: Acute (5) Diffuse abdominal pain Status: Acute (6) Flank pain Status: Acute (7) Hypokalemia Status: Acute (8) Left flank pain Status: Acute (9) Pancreatitis Status: Acute (10) UTI (urinary tract infection) Status: Acute Review of Systems Constitutional: No fever, No chills Respiratory: No shortness of breath Cardiac: No chest pain Abdomen: + see HPI, + pain, + nausea, No vomiting Female : + hematuria, No dysuria Heme: No abnormal bleeding/bruising Objective Vital Signs Date Time Temp Pulse Resp B/P (MAP) Pulse Ox O2 Delivery O2 Flow Rate FiO2 06/23/17 08:00 Room Air 06/23/17 07:19 36.5 62 16 132/76 (94) 95 Room Air 06/23/17 04:23 36.8 82 18 103/69 (80) 92 Nasal Cannula 2.0 06/23/17 04:15 Nasal Cannula 2.0 06/23/17 00:05 Nasal Cannula 2.0 06/22/17 23:16 36.9 93 20 115/70 (85) 91 Nasal Cannula 2.0 06/22/17 20:23 73 16 106/64 (78) 06/22/17 20:00 Nasal Cannula 2.0 06/22/17 19:03 36.9 89 17 117/70 (86) 89 Room Air 06/22/17 19:03 89 Room Air 06/22/17 17:10 86 06/22/17 16:00 Nasal Cannula 2.0 06/22/17 15:54 36.9 93 120/70 (87) 2 Nasal Cannula 06/22/17 15:52 36.9 97 20 120/72 (88) 93 Nasal Cannula 2.0 06/22/17 15:23 79 18 122/72 (89) 91 Nasal Cannula 2.0 06/22/17 15:06 86 16 125/75 (92) 85 Room Air 06/22/17 14:38 36.8 80 16 124/71 (88) 92 Room Air 06/22/17 14:15 36.2 88 16 116/71 93 Nasal Cannula 3 06/22/17 14:05 83 18 115/73 93 Oxymask 5 06/22/17 13:59 36.0 80 14 100/66 95 Oxymask 5 06/22/17 12:05 90 Room Air 06/22/17 11:15 37.1 69 20 109/71 (84) 90 Room Air Physical Exam General Appearance: + mild distress Eyes: normal inspection ENT: hearing grossly normal Neck: no JVD Respiratory/Chest: no respiratory distress, no accessory muscle use Cardiovascular: no JVD Extremities: normal inspection Neurologic/Psychiatric: alert, normal mood/affect, oriented x 3 Skin: normal color Laboratory Results Last 24 Hours Test 06/22/17 10:29 06/22/17 10:56 06/22/17 16:27 06/22/17 20:19 Troponin I < 0.015 ng/ml Bedside Glucose 198 mg/dl 157 mg/dl 209 mg/dl Test 06/23/17 05:18 06/23/17 07:00 White Blood Count 8.47 K/uL Red Blood Count 4.16 M/uL Hemoglobin 11.9 g/dL Hematocrit 36.3 % Mean Corpuscular Volume 87.3 fL Mean Corpuscular Hemoglobin 28.6 pg Mean Corpuscular Hemoglobin Concent 32.8 g/dl RDW Standard Deviation 43.0 fL RDW Coefficient of Variation 13.6 % Platelet Count 185 K/uL Mean Platelet Volume 9.6 fL Prothrombin Time 12.1 SECONDS Prothromb Time International Ratio 1.2 Sodium Level 138 mmol/L Potassium Level 3.5 mmol/L Chloride Level 106 mmol/L Carbon Dioxide Level 27 mmol/L Anion Gap 5.0 mmol/L Blood Urea Nitrogen 5 mg/dl Creatinine 0.50 mg/dl Est Creatinine Clear Calc Drug Dose 124.4 ml/min Estimated GFR () 120.2 Estimated GFR (Non- 103.7 BUN/Creatinine Ratio 10.4 Random Glucose 120 mg/dl Estimated Average Glucose 180 mg/dl Hemoglobin A1c 7.9 % Calcium Level 9.8 mg/dl Magnesium Level 1.7 mg/dl Bedside Glucose 119 mg/dl Assessment and Plan POD #1 s/p left ureteral stent placement; UTI AFVSS. Uncertain whether the pt's severe pain is r/t stent discomfort or more likely her pancreatitis. She states she did have some resolution of pain yesterday, but then the pain returned this morning. Will check a KUB this morning to make sure the stent is in good position. Will also add in Flomax, oxybutynin, and Pyridium for stent discomfort to see if this helps with her pain. Recommend 14 days of abx for UTI once sensitivities return. Will plan for definitive stone management once her pancreatitis and UTI have resolved. Will continue to follow along with primary service.
[2017-06-23] MEDS ORDERED: MAGNESIUM SULFATE 1GM / D5W 1 GM in PREMIXED IN D5W 100 ML IV ONE (10:00)
--- NOTE | 2017-06-23 10:08 | Hospitalist Progress Note ---
Hospitalist Progress Note Date of Service Jun 23, 2017. Subjective Pt evaluation today including: conversation w/ patient, physical exam, chart review, lab review, conversation w/ senior product consultant, review of inpatient medication list Pain: 10/10 pain PO Intake: Tolerating clear liquid diet Voiding: voiding difficulty (dysuria) The patient is tearful during my visit, complaining of 10/10 pain in her abdomen , left flank and now right flank as well as her back. She still complains of nausea but states she is hungry and is asking for her diet to be advanced. Per nursing, she ate 100% of her breakfast. The patient denies any shortness of breath currently but is on supplemental oxygen. She still complains of dysuria and has not yet moved her bowels. Nursing witnessed the patient pour her Miralax into her bedside commode. The patient denies fevers, chills, sweats, chest pain, palpitations, claudication, cough, wheezing, shortness of breath, vomiting, hematuria, urinary retention, paralysis, weakness, numbness and tingling. Additional Comments: See HPI for pertinent positives and negatives. All other systems reviewed and negative. Objective Vital Signs Date Time Temp Pulse Resp B/P (MAP) Pulse Ox O2 Delivery O2 Flow Rate FiO2 06/23/17 08:00 Room Air 06/23/17 07:19 36.5 62 16 132/76 (94) 95 Room Air 06/23/17 04:23 36.8 82 18 103/69 (80) 92 Nasal Cannula 2.0 06/23/17 04:15 Nasal Cannula 2.0 06/23/17 00:05 Nasal Cannula 2.0 06/22/17 23:16 36.9 93 20 115/70 (85) 91 Nasal Cannula 2.0 06/22/17 20:23 73 16 106/64 (78) 06/22/17 20:00 Nasal Cannula 2.0 06/22/17 19:03 36.9 89 17 117/70 (86) 89 Room Air 06/22/17 19:03 89 Room Air 06/22/17 17:10 86 06/22/17 16:00 Nasal Cannula 2.0 06/22/17 15:54 36.9 93 120/70 (87) 2 Nasal Cannula 06/22/17 15:52 36.9 97 20 120/72 (88) 93 Nasal Cannula 2.0 06/22/17 15:23 79 18 122/72 (89) 91 Nasal Cannula 2.0 06/22/17 15:06 86 16 125/75 (92) 85 Room Air 06/22/17 14:38 36.8 80 16 124/71 (88) 92 Room Air 06/22/17 14:15 36.2 88 16 116/71 93 Nasal Cannula 3 06/22/17 14:05 83 18 115/73 93 Oxymask 5 06/22/17 13:59 36.0 80 14 100/66 95 Oxymask 5 06/22/17 12:05 90 Room Air 06/22/17 11:15 37.1 69 20 109/71 (84) 90 Room Air Physical Exam Notes: General appearance: +Obese. Moderate distress secondary to pain. Well- developed, well-nourished Head: Normocephalic, atraumatic Eyes: Normal inspection, PERRL, EOMI ENT: +Dry oral mucosa. Normal ENT inspection, hearing grossly normal, pharynx normal Neck: Supple, no JVD, trachea midline Respiratory/Chest: Lungs clear to auscultation, normal breath sounds, no respiratory distress Cardiovascular: +Irregularly irregular, rate controlled. No gallop, no murmur Abdomen/GI: +Diffusely TTP, most marked in LLQ and LUQ, left flank. Normal bowel sounds, soft Extremities/Musculoskeletal: Normal inspection, no calf tenderness, no pedal edema Neurological/Psych: +Tearful. Alert, oriented x 3 Skin: Normal color, warm/dry, no rash Laboratory Results Last 24 Hours Test 06/22/17 10:29 06/22/17 10:56 06/22/17 16:27 06/22/17 20:19 Troponin I < 0.015 ng/ml Bedside Glucose 198 mg/dl 157 mg/dl 209 mg/dl Test 06/23/17 05:18 06/23/17 07:00 White Blood Count 8.47 K/uL Red Blood Count 4.16 M/uL Hemoglobin 11.9 g/dL Hematocrit 36.3 % Mean Corpuscular Volume 87.3 fL Mean Corpuscular Hemoglobin 28.6 pg Mean Corpuscular Hemoglobin Concent 32.8 g/dl RDW Standard Deviation 43.0 fL RDW Coefficient of Variation 13.6 % Platelet Count 185 K/uL Mean Platelet Volume 9.6 fL Prothrombin Time 12.1 SECONDS Prothromb Time International Ratio 1.2 Sodium Level 138 mmol/L Potassium Level 3.5 mmol/L Chloride Level 106 mmol/L Carbon Dioxide Level 27 mmol/L Anion Gap 5.0 mmol/L Blood Urea Nitrogen 5 mg/dl Creatinine 0.50 mg/dl Est Creatinine Clear Calc Drug Dose 124.4 ml/min Estimated GFR () 120.2 Estimated GFR (Non- 103.7 BUN/Creatinine Ratio 10.4 Random Glucose 120 mg/dl Estimated Average Glucose 180 mg/dl Hemoglobin A1c 7.9 % Calcium Level 9.8 mg/dl Magnesium Level 1.7 mg/dl Bedside Glucose 119 mg/dl Assessment and Plan 61 y/o female with a history of HTN, HLD, a-fib, DM II, neuropathy, pancreatic cancer s/p Whipple procedure, chronic pancreatitis, depression, gout, and GERD who presents with abdominal pain, nausea, and vomiting. The patient was found to have acute on chronic pancreatitis, a-fib with RVR, and left obstructing ureteral stone with hydronephrosis. A-fib with RVR--resolving -Admit to telemetry. Pt in a-fib with HR mostly 80s-90s. Will transfer to med/ surg -Continue digoxin 125 mcg PO qd, diltiazem 120 mg PO BID, Toprol XL 25 mg PO BID -Will likely need ERCP in near future. Will anticoagulate with therapeutic Lovenox rather than trying to get warfarin therapeutic and then holding again Left ureteral stone w/hydronephrosis--stable -9 mm obstructing stone in left proximal ureter w/mild hydronephrosis -Consult urology, appreciate recs: Check KUB this morning. Will add Flomax, oxybutynin and Pyridium to see if this helps relieve pain. Would recommend total 14 days of antibiotics once urine culture sensitivities return. -Cipro 400 mg IV BID, day #2 -Continue clear liquid diet, NSS to 100 cc/hr -UA + bacteria, WBCs, leuks, and occult blood. Urine culture with strep species , further identification and sensitivities pending -Zofran and promethazine prn nausea/vomiting Acute on chronic pancreatitis, pancreatic cancer s/p Whipple--stable - Dilaudid WAFER FABRICATION OPERATOR as pain uncontrolled - Continue fentanyl patch - Consult GI, appreciate recs: Spoke with Mike Mccallum. Recommend increasing IVF rate if possible, note less aggressive IVF due to a-fib. Recommend MRCP, will need medical records to see if aneurysm clip is MRI compatible or not. If ERCP is needed based on MRCP results, would need to be done at tertiary care center due to altered anatomy s/p Whipple. ERCP would likely not be for several days, so can anticoagulate in the meantime. Continue clears. - CT showed worsening acute pancreatitis from 06/13, lipase was 505 (had been WNL in May) - On clear liquid diet Hypomagnesemia--ongoing despite replacement - Mag 1.7 on 06/23 - Mag sulfate 1 gm IV qd, continue mag oxide 400 mg PO BID - Continue to monitor. Goal mag over 2 due to a-fib with RVR HTN, HLD--stable -Continue metoprolol and diltiazem as above, Welchol 625 mg PO qd, Colestid 2 gm PO BID, fenofibrate 145 mg PO qd DM II--stable -Home Lantus reduced to 22 units SC qd due to NPO, can increase back to home dose if having adequate PO intake -Insulin sliding scale -Check BSGs q ac and qhs -HgbA1c 7.9 on 06/23 Neuropathy -Continue gabapentin 100 mg PO TID Depression/insomnia -Continue citalopram 20 mg PO qd and trazodone 150 mg PO hs Gout -Continue allopurinol 100 mg PO qd GERD -D/C IV Protonix, convert to PO DVT prophylaxis -Therapeutic Lovenox -SCDs Code Status -Level I, FULL RESUSCITATION STATUS
[2017-06-23] MEDS: COLESTIPOL HCL 1 GM TAB PO SCH ×2 (10:37→22:46)
[2017-06-23] MEDS: ONDANSETRON 4MG OD TAB PO PRN (11:41)
--- NOTE | 2017-06-23 11:51 | Gastroenterology Progress Note ---
Progress Note Date of Service: Jun 23, 2017 Subjective Pt evaluation today including: conversation w/ patient, physical exam, chart review, lab review, review of studies, review of inpatient medication list Ms. Torres is a 61 yr old female admitted with acute on chronic pancreatitis. Also with L ureteral stone for which she underwent stenting yesterday. Was also in A-fib, yesterday in RVR, now rate controlled. Today - good pain relief as evidenced by sleeping when I entered the room. Lipase on arrival 505. LFTs remain normal. On clear liquid diet w/o c/o of increased pain or nausea after intake. Pt c/o hunger and asks for food. Pt tells us that she has brain aneurysm clips so unable to undergo MRCP. Review of Systems Constitutional: No fever Respiratory: No cough Abdomen: + pain, + problem reported (no BM since arrival, so may be getting constipated), No nausea, No vomiting, No diarrhea, No constipation Female : No dysuria Neuro: No memory loss Heme: No abnormal bleeding/bruising Endo: No excessive thirst, No excessive urination Skin: No rash, No jaundice Medications Current Inpatient Medications Medications (Trade) Dose Ordered Sig/August Route Start Time Stop Time Status Last Admin Dose Admin Sodium Chloride 1,000 ml @ 100 mls/hr Q10H IV 06/21/17 20:40 07/21/17 20:39 06/23/17 03:49 100 MLS/HR Ciprofloxacin/ Dextrose 400 mg/ Prmx 200 ml @ 100 mls/hr Q12 IV 06/21/17 21:00 07/01/17 20:59 06/23/17 08:14 100 MLS/HR Albuterol (Ventolin Hfa Inhaler) 2 puffs QID PRN INH 06/21/17 20:15 07/21/17 20:14 Insulin Aspart (novoLOG ASPART) SLIDING SCALE If C... ACHS SC 06/21/17 21:00 07/21/17 20:59 06/23/17 08:33 5 UNITS Insulin Glargine (Lantus Solostar Pen) 22 units HS SC 06/21/17 21:00 07/21/17 20:59 06/22/17 21:11 22 UNITS Promethazine HCl 25 mg/Sodium Chloride 51 ml @ 204 mls/hr Q6H PRN IV 06/21/17 20:15 07/21/17 20:14 06/22/17 19:47 204 MLS/HR Ondansetron HCl (Zofran Odt) 4 mg Q8H PRN PO 06/21/17 23:00 07/21/17 22:59 06/22/17 23:07 4 MG Hydromorphone HCl (Dilaudid Inj) 0.5 mg Q2H PRN IV 06/22/17 02:00 07/05/17 18:59 06/22/17 15:07 0.5 MG Naloxone HCl (Narcan Inj) 0.1 mg Q5M PRN IV 06/22/17 11:45 07/22/17 11:44 Hydromorphone HCl (Dilaudid Senior Lead Software Engineer) 25 mg PRN PRN IV 06/22/17 11:45 07/06/17 11:44 06/22/17 15:13 25 MG Sodium Chloride 1,000 ml @ 15 mls/hr Q24H IV 06/22/17 11:34 07/22/17 11:33 06/22/17 15:26 15 MLS/HR Allopurinol (Zyloprim Tab) 100 mg DAILY PO 06/23/17 09:00 07/23/17 08:59 06/23/17 08:22 100 MG Citalopram Hydrobromide (celeXA TAB) 20 mg DAILY PO 06/23/17 09:00 07/23/17 08:59 06/23/17 08:19 20 MG Colestipol HCl (Colestid Tab) 2 gm BID@1000,2200 PO 06/22/17 22:00 07/22/17 21:59 06/23/17 10:37 2 GM Digoxin (Lanoxin Tab) 0.125 mg DAILY@1600 PO 06/22/17 16:00 07/22/17 15:59 06/22/17 17:10 0.125 MG Diltiazem HCl (Cardizem Cd Cap) 120 mg BID PO 06/22/17 21:00 07/22/17 20:59 06/23/17 08:16 120 MG Docusate Sodium (coLACE CAP) 100 mg BID PO 06/22/17 21:00 07/22/17 20:59 06/23/17 08:19 100 MG Fenofibrate (Tricor Tab) 145 mg QAM PO 06/23/17 09:00 07/23/17 08:59 06/23/17 08:23 145 MG Gabapentin (Neurontin Cap) 100 mg TID PO 06/22/17 21:00 07/22/17 20:59 06/23/17 08:18 100 MG Magnesium Oxide (Mag-Ox Tab) 400 mg BID PO 06/22/17 21:00 07/22/17 20:59 06/23/17 08:16 400 MG Metoprolol Succinate (Toprol Xl Tab) 25 mg BID PO 06/22/17 21:00 07/22/17 20:59 06/23/17 08:17 25 MG Pantoprazole Sodium (Protonix Tab) 40 mg DAILY PO 06/23/17 09:00 07/23/17 08:59 06/23/17 08:19 40 MG Sucralfate (Carafate Tab) 1 gm ACHS PO 06/22/17 16:15 07/22/17 16:14 06/23/17 08:13 1 GM Trazodone HCl (Desyrel Tab) 150 mg HS PO 06/22/17 21:00 07/22/17 20:59 06/22/17 19:49 150 MG Miscellaneous Information (Order Awaiting Action) 1 ea DAILY@1700 PO 06/22/17 17:00 07/22/17 16:59 Miscellaneous Information (Order Awaiting Action) 1 ea BID17 PO 06/22/17 17:00 07/22/17 16:59 Amylase/Lipase/ Protease (Pancreaze (Lipase 10,500U) Cap) 2 cap TIDM PO 06/22/17 16:45 07/22/17 16:44 06/23/17 08:18 2 CAP Polyethylene (Miralax Powder Packet) 17 gm DAILY PO 06/23/17 09:00 07/23/17 08:59 06/23/17 08:19 17 GM Phenazopyridine HCl (Pyridium Tab) 200 mg TID PO 06/23/17 14:00 07/23/17 13:59 Tamsulosin HCl (Flomax Cap) 0.4 mg HS PO 06/23/17 21:00 07/23/17 20:59 Oxybutynin Chloride (Ditropan Tab) 5 mg BID PO 06/23/17 21:00 07/23/17 20:59 Enoxaparin Sodium (Lovenox 1 Mg/Kg) 1 ea Q12H SQ 06/23/17 10:45 07/23/17 10:44 UNV Objective Vital Signs Date Time Temp Pulse Resp B/P (MAP) Pulse Ox O2 Delivery O2 Flow Rate FiO2 06/23/17 11:36 36.9 84 18 106/64 (78) 92 Nasal Cannula 2.0 06/23/17 11:29 37.2 84 16 108/72 (84) 91 Room Air 06/23/17 11:00 36.5 62 16 95 2.0 06/23/17 08:00 Room Air 06/23/17 07:19 36.5 62 16 132/76 (94) 95 Room Air 06/23/17 04:23 36.8 82 18 103/69 (80) 92 Nasal Cannula 2.0 06/23/17 04:15 Nasal Cannula 2.0 06/23/17 00:05 Nasal Cannula 2.0 06/22/17 23:16 36.9 93 20 115/70 (85) 91 Nasal Cannula 2.0 06/22/17 20:23 73 16 106/64 (78) 06/22/17 20:00 Nasal Cannula 2.0 06/22/17 19:03 36.9 89 17 117/70 (86) 89 Room Air 06/22/17 19:03 89 Room Air 06/22/17 17:10 86 06/22/17 16:00 Nasal Cannula 2.0 06/22/17 15:54 36.9 93 120/70 (87) 2 Nasal Cannula 06/22/17 15:52 36.9 97 20 120/72 (88) 93 Nasal Cannula 2.0 06/22/17 15:23 79 18 122/72 (89) 91 Nasal Cannula 2.0 06/22/17 15:06 86 16 125/75 (92) 85 Room Air 06/22/17 14:38 36.8 80 16 124/71 (88) 92 Room Air 06/22/17 14:15 36.2 88 16 116/71 93 Nasal Cannula 3 06/22/17 14:05 83 18 115/73 93 Oxymask 5 06/22/17 13:59 36.0 80 14 100/66 95 Oxymask 5 06/22/17 12:05 90 Room Air Physical Exam General Appearance: no apparent distress Neck: supple, thyroid normal, no JVD Respiratory/Chest: lungs clear Cardiovascular: no edema, no JVD Abdomen: non tender (with gentle palpation), soft Extremities: non-tender Neurologic/Psych: alert, normal mood/affect, oriented x 3 Skin: no jaundice Laboratory Results Last 24 Hours Test 06/22/17 16:27 06/22/17 20:19 06/23/17 05:18 06/23/17 07:00 Bedside Glucose 157 mg/dl 209 mg/dl 119 mg/dl White Blood Count 8.47 K/uL Red Blood Count 4.16 M/uL Hemoglobin 11.9 g/dL Hematocrit 36.3 % Mean Corpuscular Volume 87.3 fL Mean Corpuscular Hemoglobin 28.6 pg Mean Corpuscular Hemoglobin Concent 32.8 g/dl RDW Standard Deviation 43.0 fL RDW Coefficient of Variation 13.6 % Platelet Count 185 K/uL Mean Platelet Volume 9.6 fL Prothrombin Time 12.1 SECONDS Prothromb Time International Ratio 1.2 Sodium Level 138 mmol/L Potassium Level 3.5 mmol/L Chloride Level 106 mmol/L Carbon Dioxide Level 27 mmol/L Anion Gap 5.0 mmol/L Blood Urea Nitrogen 5 mg/dl Creatinine 0.50 mg/dl Est Creatinine Clear Calc Drug Dose 124.4 ml/min Estimated GFR () 120.2 Estimated GFR (Non- 103.7 BUN/Creatinine Ratio 10.4 Random Glucose 120 mg/dl Estimated Average Glucose 180 mg/dl Hemoglobin A1c 7.9 % Calcium Level 9.8 mg/dl Magnesium Level 1.7 mg/dl Assessment and Plan Ms. Torres is a 61 yr old female with acute on chronic pancreatitis S/P Whipple procedure in 2013. Plan: 1. IV fluids (spoke with primary hospitalist, asked them to increase the rate - understand will need to do so with caution with a-fib). 2. Will try to get more information about the brain aneurysm clips. If MR compatible, she should undergo MRCP to look for stricture of the distal pancreatic duct at duct/duodenal anastomosis. 3. Because pt continues to report significant pain, despite being able to sleep , would keep at clear liquids until further improvement in pain. I have seen , examined and agree with the plan as outlined by YARED Brian as above. -exam reveals soft abd -Remain on clear liquid -We will need to follow-up with Dr. dang and likely [facility] after discharge for pancreatitis in setting of prior Whipple
--- NOTE | 2017-06-23 11:56 | DIAGNOSTIC IMAGING REPORT ---
[facility] CLINICAL HISTORY: Nephrolithiasis. Ureteral stent placement. FINDINGS: An AP supine abdominal radiograph is compared to study dated 04/15/2016 and correlated with abdominal CT dated 06/21/2017. There is a nonobstructed abdominal bowel gas pattern. Suture material projects over the left mid abdomen and the pelvis. A left ureteral stent is in place. No calcification is seen projecting along the course of the stent. An 8 mm calculus projects over the lower pole of the left kidney. No calcifications are clearly seen projecting over the right kidney or along the course of the right ureter. Numerous small pelvic phleboliths are observed. IMPRESSION: 1. A left ureteral stent has been placed. No calcifications are seen projecting along the course of the stent. 2. An 8 mm calcification projects over the lower pole of the left kidney. Electronically signed by: Ryan Helms M.D. 06/23/2017 11:54 AM Dictated Date/Time: 06/23/2017 11:52 AM
[2017-06-23] MEDS: ENOXAPARIN 100 MG/1ML SYR SQ SCH ×2 (12:48→23:57)
[2017-06-23] MEDS: PHENAZOPYRIDINE HCL 200 MG TAB PO SCH ×2 (14:05→21:18)
[2017-06-23] MEDS: DIGOXIN 0.125 MG TAB PO SCH (16:13)
[2017-06-23] MEDS: TAMSULOSIN HCL 0.4 MG CAP PO SCH (21:17)
[2017-06-23] MEDS: TRAZODONE HCL 50 MG TAB PO SCH (21:18)
[2017-06-23] MEDS: OXYBUTYNIN CHLORIDE 5 MG TAB PO SCH (21:19)
[2017-06-23] MEDS: INSULIN GLARGINE SOLOSTAR 100 UNITS/ML 3 ML PEN SC SCH (21:21)
[2017-06-23] MEDS: HYDROmorphone HCL 0.5MG/ML 50 ML CASSETTE IV PRN (23:03)
[2017-06-24] VITALS (8 sets, daily range): BP systolic 95–121; BP diastolic 59–73; PULSE 74–87; TEMP 36.5–37.1; O2SAT 90–94
[2017-06-24] MEDS: SODIUM CHLORIDE 0.9% 1000ML 1,000 ML IV SCH ×3 (04:06→09:34)
[2017-06-24] MEDS: NICOTINE 14 MG/24 HR TDSY TD SCH (04:09)
[2017-06-24] MEDS: HYDROmorphone HCL 0.5MG/ML 50 ML CASSETTE IV PRN ×3 (06:52→23:09)
[2017-06-24 07:52] LABS: HEMATOCRIT 34.3 % (37-47); MEAN CELL VOLUME 87.9 fL (80-100); MEAN CORPUSCULAR HEMOGLOBIN 28.2 pg (25-34); MEAN CORPUSCULAR HGB CONC 32.1 g/dl (32-36); MEAN PLATELET VOLUME 10.2 fL (7.4-10.4); PLATELET COUNT 154 K/uL (130-400); RED CELL DISTRIBUTION WIDTH CV 13.5 % (11.5-14.5); RED CELL DISTRIBUTION WIDTH SD 43.4 fL (36.4-46.3); WHITE BLOOD COUNT 5.42 K/uL (4.8-10.8)
[2017-06-24] MEDS ORDERED: FENTANYL 25 MCG/HR TDSY TD SCH (08:00)
[2017-06-24] MEDS ORDERED: FENTANYL PATCH REMOVE & WASTE SCH (08:00)
[2017-06-24 08:21] LABS: CALCIUM 9.7 mg/dl (8.5-10.1); CREATININE 0.39 mg/dl (0.60-1.20); POTASSIUM 3.2 mmol/L (3.5-5.1)
[2017-06-24] MEDS: SUCRALFATE 1 GM TAB PO SCH ×4 (08:32→20:55)
[2017-06-24] MEDS: PANCREAZE (LIPASE 10,500U) CAP PO SCH ×3 (08:32→18:18)
[2017-06-24] MEDS: CIPROFLOXACIN / D5W 400 MG in PREMIXED IN D5W 200 ML IV SCH ×2 (08:39→21:01)
[2017-06-24] MEDS: DILTIAZEM HCL 120 MG CAPCR PO SCH ×2 (08:42→20:57)
[2017-06-24] MEDS: CITALOPRAM 20 MG TAB PO SCH (08:43)
[2017-06-24] MEDS: DOCUSATE SODIUM 100 MG CAP PO SCH ×2 (08:43→20:55)
[2017-06-24] MEDS: GABAPENTIN 100 MG CAP PO SCH ×3 (08:44→20:55)
[2017-06-24] MEDS: MAGNESIUM OXIDE 400 MG TAB PO SCH ×2 (08:44→20:55)
[2017-06-24] MEDS: OXYBUTYNIN CHLORIDE 5 MG TAB PO SCH ×2 (08:44→20:55)
[2017-06-24] MEDS: PANTOprazole SOD 40 MG TAB PO SCH (08:45)
[2017-06-24] MEDS: PHENAZOPYRIDINE HCL 200 MG TAB PO SCH ×3 (08:45→20:55)
[2017-06-24] MEDS: METOPROLOL SUCC 25MG EXT REL TAB PO SCH ×2 (08:46→20:56)
[2017-06-24] MEDS: POLYETHYLENE (MIRALAX) 17 GM PACK PO SCH (08:46)
[2017-06-24] MEDS: ALLOPURINOL 100 MG TAB PO SCH (08:46)
[2017-06-24] MEDS: FENOFIBRATE 145 MG TAB PO SCH (09:29)
[2017-06-24] MEDS: INSULIN ASPART 100 UNITS/ML 3 ML PEN SC SCH ×4 (09:32→21:00)
[2017-06-24] MEDS: COLESTIPOL HCL 1 GM TAB PO SCH ×2 (09:33→22:20)
--- NOTE | 2017-06-24 10:11 | Gastroenterology Progress Note ---
Progress Note Date of Service: Jun 24, 2017 Subjective Pt evaluation today including: conversation w/ patient, conversation w/ consultant teacher Still with pain after awakening, no pain on palpation while asleep Review of Systems Constitutional: No see HPI, No fever, No chills, No sweats, No weight loss, No weakness, No fatigue, No problem reported Eyes: No see HPI, No worsening of vision, No eye pain, No redness, No discharge , No diplopia, No problem reported ENT: No see HPI, No hearing loss, No unusual epistaxis, No nasal symptoms, No sore throat, No tinnitus, No dental problems, No trouble swallowing, No pain on swallowing, No problem reported Medications Current Inpatient Medications Medications (Trade) Dose Ordered Sig/August Route Start Time Stop Time Status Last Admin Dose Admin Sodium Chloride 1,000 ml @ 100 mls/hr Q10H IV 06/21/17 20:40 07/21/17 20:39 06/24/17 09:34 100 MLS/HR Ciprofloxacin/ Dextrose 400 mg/ Prmx 200 ml @ 100 mls/hr Q12 IV 06/21/17 21:00 07/01/17 20:59 06/24/17 08:39 100 MLS/HR Albuterol (Ventolin Hfa Inhaler) 2 puffs QID PRN INH 06/21/17 20:15 07/21/17 20:14 Insulin Aspart (novoLOG ASPART) SLIDING SCALE If C... ACHS SC 06/21/17 21:00 07/21/17 20:59 06/24/17 09:32 2 UNITS Insulin Glargine (Lantus Solostar Pen) 22 units HS SC 06/21/17 21:00 07/21/17 20:59 06/23/17 21:21 22 UNITS Promethazine HCl 25 mg/Sodium Chloride 51 ml @ 204 mls/hr Q6H PRN IV 06/21/17 20:15 07/21/17 20:14 06/22/17 19:47 204 MLS/HR Ondansetron HCl (Zofran Odt) 4 mg Q8H PRN PO 06/21/17 23:00 07/21/17 22:59 06/23/17 11:41 4 MG Hydromorphone HCl (Dilaudid Inj) 0.5 mg Q2H PRN IV 06/22/17 02:00 07/05/17 18:59 06/22/17 15:07 0.5 MG Naloxone HCl (Narcan Inj) 0.1 mg Q5M PRN IV 06/22/17 11:45 07/22/17 11:44 Hydromorphone HCl (Dilaudid Bariatric Surgeon) 25 mg PRN PRN IV 06/22/17 11:45 07/06/17 11:44 06/24/17 06:52 25 MG Sodium Chloride 1,000 ml @ 15 mls/hr Q24H IV 06/22/17 11:34 07/22/17 11:33 06/22/17 15:26 15 MLS/HR Allopurinol (Zyloprim Tab) 100 mg DAILY PO 06/23/17 09:00 07/23/17 08:59 06/24/17 08:46 100 MG Citalopram Hydrobromide (celeXA TAB) 20 mg DAILY PO 06/23/17 09:00 07/23/17 08:59 06/24/17 08:43 20 MG Colestipol HCl (Colestid Tab) 2 gm BID@1000,2200 PO 06/22/17 22:00 07/22/17 21:59 06/24/17 09:33 2 GM Digoxin (Lanoxin Tab) 0.125 mg DAILY@1600 PO 06/22/17 16:00 07/22/17 15:59 06/23/17 16:13 0.125 MG Diltiazem HCl (Cardizem Cd Cap) 120 mg BID PO 06/22/17 21:00 07/22/17 20:59 06/24/17 08:42 120 MG Docusate Sodium (coLACE CAP) 100 mg BID PO 06/22/17 21:00 07/22/17 20:59 06/24/17 08:43 100 MG Fenofibrate (Tricor Tab) 145 mg QAM PO 06/23/17 09:00 07/23/17 08:59 06/24/17 09:29 145 MG Gabapentin (Neurontin Cap) 100 mg TID PO 06/22/17 21:00 07/22/17 20:59 06/24/17 08:44 100 MG Magnesium Oxide (Mag-Ox Tab) 400 mg BID PO 06/22/17 21:00 07/22/17 20:59 06/24/17 08:44 400 MG Metoprolol Succinate (Toprol Xl Tab) 25 mg BID PO 06/22/17 21:00 07/22/17 20:59 06/24/17 08:46 25 MG Pantoprazole Sodium (Protonix Tab) 40 mg DAILY PO 06/23/17 09:00 07/23/17 08:59 06/24/17 08:45 40 MG Sucralfate (Carafate Tab) 1 gm ACHS PO 06/22/17 16:15 07/22/17 16:14 06/24/17 08:32 1 GM Trazodone HCl (Desyrel Tab) 150 mg HS PO 06/22/17 21:00 07/22/17 20:59 06/23/17 21:18 150 MG Miscellaneous Information (Order Awaiting Action) 1 ea DAILY@1700 PO 06/22/17 17:00 07/22/17 16:59 Miscellaneous Information (Order Awaiting Action) 1 ea BID17 PO 06/22/17 17:00 07/22/17 16:59 Amylase/Lipase/ Protease (Pancreaze (Lipase 10,500U) Cap) 2 cap TIDM PO 06/22/17 16:45 07/22/17 16:44 06/24/17 08:32 2 CAP Polyethylene (Miralax Powder Packet) 17 gm DAILY PO 06/23/17 09:00 07/23/17 08:59 06/23/17 08:19 17 GM Phenazopyridine HCl (Pyridium Tab) 200 mg TID PO 06/23/17 14:00 07/23/17 13:59 06/24/17 08:45 200 MG Tamsulosin HCl (Flomax Cap) 0.4 mg HS PO 06/23/17 21:00 07/23/17 20:59 06/23/17 21:17 0.4 MG Oxybutynin Chloride (Ditropan Tab) 5 mg BID PO 06/23/17 21:00 07/23/17 20:59 06/24/17 08:44 5 MG Enoxaparin Sodium (Lovenox Inj) 90 mg Q12H SQ 06/23/17 12:00 07/23/17 11:59 06/23/17 23:57 90 MG Nicotine (Nicoderm Cq 14MG Patch) 1 patch QAM TD 06/24/17 09:00 07/24/17 08:59 06/24/17 04:09 1 PATCH Miscellaneous (Remove Nicoderm Patch) 1 ea HS N/A 06/23/17 21:00 07/23/17 20:59 Objective Vital Signs Date Time Temp Pulse Resp B/P (MAP) Pulse Ox O2 Delivery O2 Flow Rate FiO2 06/24/17 08:08 36.5 82 19 114/72 (86) 91 Nasal Cannula 06/24/17 03:48 36.8 82 18 102/66 (78) 94 Nasal Cannula 2.0 06/24/17 00:15 Nasal Cannula 2.0 06/23/17 22:46 37.0 75 16 96/56 (69) 93 Nasal Cannula 2.0 06/23/17 21:13 75 114/70 (85) 06/23/17 19:04 37.2 79 16 103/64 (77) 93 Nasal Cannula 3.0 06/23/17 16:13 81 06/23/17 15:45 Nasal Cannula 2.0 06/23/17 15:35 37.3 82 16 105/67 (80) 91 Nasal Cannula 4.0 06/23/17 13:58 Nasal Cannula 2.0 06/23/17 11:36 36.9 84 18 106/64 (78) 92 Nasal Cannula 2.0 06/23/17 11:29 37.2 84 16 108/72 (84) 91 Room Air 06/23/17 11:00 36.5 62 16 95 2.0 Physical Exam General Appearance: WD/WN, no apparent distress, + pertinent finding ( somnelent but arousable) Respiratory/Chest: chest non-tender, lungs clear Cardiovascular: regular rate, rhythm, no edema Abdomen: normal bowel sounds, non tender Extremities: normal range of motion, non-tender, normal inspection Neurologic/Psych: senior planning analyst II-XII nml as tested Laboratory Results Last 24 Hours Test 06/23/17 12:06 06/23/17 17:14 06/23/17 21:02 06/24/17 07:07 Bedside Glucose 159 mg/dl 166 mg/dl 140 mg/dl White Blood Count 5.42 K/uL Red Blood Count 3.90 M/uL Hemoglobin 11.0 g/dL Hematocrit 34.3 % Mean Corpuscular Volume 87.9 fL Mean Corpuscular Hemoglobin 28.2 pg Mean Corpuscular Hemoglobin Concent 32.1 g/dl RDW Standard Deviation 43.4 fL RDW Coefficient of Variation 13.5 % Platelet Count 154 K/uL Mean Platelet Volume 10.2 fL Sodium Level 142 mmol/L Potassium Level 3.2 mmol/L Chloride Level 108 mmol/L Carbon Dioxide Level 27 mmol/L Anion Gap 7.0 mmol/L Blood Urea Nitrogen 3 mg/dl Creatinine 0.39 mg/dl Est Creatinine Clear Calc Drug Dose 161.3 ml/min Estimated GFR () 130.5 Estimated GFR (Non- 112.6 BUN/Creatinine Ratio 7.5 Random Glucose 128 mg/dl Calcium Level 9.7 mg/dl Magnesium Level 1.7 mg/dl Test 06/24/17 08:29 Bedside Glucose 147 mg/dl Assessment and Plan Ms. Torres is a 61 yr old female with acute on chronic pancreatitis S/P Whipple procedure in 2013 for pancreatic cancer. Plan: 1. IV fluids 2. Consider MRCP prior to discharge or with Dr. dang in [place] and then suggest following up with pancreaticobiliary team at [facility] 3. Because pt continues to report significant pain, despite being able to sleep , would keep at clear liquids until further improvement in pain. 4. Advance diet as tolerated 5. Call with questions
[2017-06-24] MEDS ORDERED: MAGNESIUM SULFATE 1GM / D5W 1 GM in PREMIXED IN D5W 100 ML IV ONE (10:30)
--- NOTE | 2017-06-24 12:10 | Progress Note ---
Subjective Date of Service: Jun 24, 2017. Subjective Pt evaluation today including: conversation w/ patient, physical exam, chart review, lab review, review of inpatient medication list Pain: Left lower abdominal pain with p.o. intake. PO Intake: Taking clears per orders. Voiding: no voiding problems 61-year-old female postoperative day #2 status post left ureteral stent placement for large proximal ureteral stone in the context of pancreatitis. She reports she continues to have left lower quadrant pain radiating to the umbilicus when she takes p.o. intake. This is slowly diminishing in amplitude. It is suspected this is likely due to her GI difficulty. She notes some mild dysuria but otherwise seems unbothered by her stent. Past notes are reviewed. Problem List Medical Problems: (1) Abdominal pain Status: Acute (2) Acute on chronic pancreatitis Status: Acute (3) Atrial fibrillation with RVR Status: Acute (4) Back pain Status: Acute (5) Diffuse abdominal pain Status: Acute (6) Flank pain Status: Acute (7) Hypokalemia Status: Acute (8) Left flank pain Status: Acute (9) Pancreatitis Status: Acute (10) UTI (urinary tract infection) Status: Acute Review of Systems Constitutional: No fever, No chills Eyes: No worsening of vision ENT: No hearing loss Respiratory: No shortness of breath Cardiac: No chest pain Abdomen: + pain, + nausea Female : + dysuria, No incontinence Neurologic: No memory loss, No paralysis Psychiatric: + depression symptoms Endo: No excessive thirst, No excessive urination Skin: No new/changing skin lesions Objective Vital Signs Date Time Temp Pulse Resp B/P (MAP) Pulse Ox O2 Delivery O2 Flow Rate FiO2 06/24/17 11:18 36.7 87 17 115/67 (83) 91 Room Air 06/24/17 08:15 Nasal Cannula 2.0 06/24/17 08:08 36.5 82 19 114/72 (86) 91 Nasal Cannula 06/24/17 03:48 36.8 82 18 102/66 (78) 94 Nasal Cannula 2.0 06/24/17 00:15 Nasal Cannula 2.0 06/23/17 22:46 37.0 75 16 96/56 (69) 93 Nasal Cannula 2.0 06/23/17 21:13 75 114/70 (85) 06/23/17 19:04 37.2 79 16 103/64 (77) 93 Nasal Cannula 3.0 06/23/17 16:13 81 06/23/17 15:45 Nasal Cannula 2.0 06/23/17 15:35 37.3 82 16 105/67 (80) 91 Nasal Cannula 4.0 06/23/17 13:58 Nasal Cannula 2.0 Physical Exam General Appearance: WD/WN, no apparent distress ENT: normal ENT inspection Neck: supple, no adenopathy Respiratory/Chest: no respiratory distress, no accessory muscle use Cardiovascular: no JVD Abdomen: soft, + pertinent finding (Nondistended) Extremities: normal range of motion Neurologic/Psychiatric: alert, oriented x 3 Skin: normal color Laboratory Results Last 24 Hours Test 06/23/17 12:06 06/23/17 17:14 06/23/17 21:02 06/24/17 07:07 Bedside Glucose 159 mg/dl 166 mg/dl 140 mg/dl White Blood Count 5.42 K/uL Red Blood Count 3.90 M/uL Hemoglobin 11.0 g/dL Hematocrit 34.3 % Mean Corpuscular Volume 87.9 fL Mean Corpuscular Hemoglobin 28.2 pg Mean Corpuscular Hemoglobin Concent 32.1 g/dl RDW Standard Deviation 43.4 fL RDW Coefficient of Variation 13.5 % Platelet Count 154 K/uL Mean Platelet Volume 10.2 fL Sodium Level 142 mmol/L Potassium Level 3.2 mmol/L Chloride Level 108 mmol/L Carbon Dioxide Level 27 mmol/L Anion Gap 7.0 mmol/L Blood Urea Nitrogen 3 mg/dl Creatinine 0.39 mg/dl Est Creatinine Clear Calc Drug Dose 161.3 ml/min Estimated GFR () 130.5 Estimated GFR (Non- 112.6 BUN/Creatinine Ratio 7.5 Random Glucose 128 mg/dl Calcium Level 9.7 mg/dl Magnesium Level 1.7 mg/dl Test 06/24/17 08:29 Bedside Glucose 147 mg/dl Assessment and Plan A/P 61-year-old female postoperative day #2 status post left ureteral stent placement for stone and abdominal pain. Patient's discomfort seems mostly to be arising from her difficulties with pancreatitis. Currently remains on clear liquids to allow for improvement. In addition, the patient notes that she was pending intervention in the form of a pacemaker in [place] which has been delayed due to her general health. As noted with the patient, her indwelling stent can remain in place typically for up to 3 months before intervention is required. If she is tolerating this well and continuing to have difficulties with more acute health issues which need to resolve we can defer definitive management for her left renal stone for now. Will arrange for outpatient follow-up in our office in a couple of weeks to follow-up on her stone disease. Will likely need lithotripsy of some form in the future to resolve the issue. Importance of outpatient follow-up for her stent to avoid encrustation is emphasized. Thank you for allowing us to participate in this patient's care. Discharge planning: home
[2017-06-24] MEDS: POTASSIUM CHLORIDE INJ 20 MEQ in LACTATED RINGER'S 1000ML 1,000 ML IV SCH (12:19)
[2017-06-24] MEDS: ENOXAPARIN 100 MG/1ML SYR SQ SCH ×2 (12:20→23:43)
--- NOTE | 2017-06-24 13:56 | Progress Note ---
Subjective Date of Service: Jun 24, 2017. Subjective Pt evaluation today including: conversation w/ patient, physical exam, lab review, conversation w/ universal branch consultant, review of inpatient medication list Pain: still with severe pain, not using Dilaudid IT COMPLIANCE ANALYST as she should PO Intake: clears Voiding: no voiding problems patient laying in bed, tearful, one minute says she is in severe pain, next minute she wants to eat and go home asks for food, then says that it makes pain worse explained that she is not well enough to go home, on Dilaudid IT COMPLIANCE ANALYST, she vaguely understands discussed case with Dr. Nolasco, only work up option here is MRCP but unsure it can be done needs to go to [facility] for advanced endoscopy, ERCP to evaluate connection between pancreatic tail and jejunum labs: K is 3.2, Mag is 1.7, other labs normal Problem List Medical Problems: (1) Abdominal pain Status: Acute (2) Acute on chronic pancreatitis Status: Acute (3) Atrial fibrillation with RVR Status: Acute (4) Back pain Status: Acute (5) Diffuse abdominal pain Status: Acute (6) Flank pain Status: Acute (7) Hypokalemia Status: Acute (8) Left flank pain Status: Acute (9) Pancreatitis Status: Acute (10) UTI (urinary tract infection) Status: Acute Review of Systems Constitutional: + weakness, + fatigue Abdomen: + pain Neurologic: + weakness Psychiatric: + depression symptoms, + anxiety All Other Systems: Reviewed and Negative Medications Current Inpatient Medications Medications (Trade) Dose Ordered Sig/August Route Start Time Stop Time Status Last Admin Dose Admin Ciprofloxacin/ Dextrose 400 mg/ Prmx 200 ml @ 100 mls/hr Q12 IV 06/21/17 21:00 07/01/17 20:59 06/24/17 08:39 100 MLS/HR Albuterol (Ventolin Hfa Inhaler) 2 puffs QID PRN INH 06/21/17 20:15 07/21/17 20:14 Insulin Aspart (novoLOG ASPART) SLIDING SCALE If C... ACHS SC 06/21/17 21:00 07/21/17 20:59 06/24/17 13:00 6 UNITS Insulin Glargine (Lantus Solostar Pen) 22 units HS SC 06/21/17 21:00 07/21/17 20:59 06/23/17 21:21 22 UNITS Promethazine HCl 25 mg/Sodium Chloride 51 ml @ 204 mls/hr Q6H PRN IV 06/21/17 20:15 07/21/17 20:14 06/22/17 19:47 204 MLS/HR Ondansetron HCl (Zofran Odt) 4 mg Q8H PRN PO 06/21/17 23:00 07/21/17 22:59 06/23/17 11:41 4 MG Hydromorphone HCl (Dilaudid Inj) 0.5 mg Q2H PRN IV 06/22/17 02:00 07/05/17 18:59 06/22/17 15:07 0.5 MG Naloxone HCl (Narcan Inj) 0.1 mg Q5M PRN IV 06/22/17 11:45 07/22/17 11:44 Hydromorphone HCl (Dilaudid Hydraulic Press Operator) 25 mg PRN PRN IV 06/22/17 11:45 07/06/17 11:44 06/24/17 06:52 25 MG Sodium Chloride 1,000 ml @ 15 mls/hr Q24H IV 06/22/17 11:34 07/22/17 11:33 06/22/17 15:26 15 MLS/HR Allopurinol (Zyloprim Tab) 100 mg DAILY PO 06/23/17 09:00 07/23/17 08:59 06/24/17 08:46 100 MG Citalopram Hydrobromide (celeXA TAB) 20 mg DAILY PO 06/23/17 09:00 07/23/17 08:59 06/24/17 08:43 20 MG Colestipol HCl (Colestid Tab) 2 gm BID@1000,2200 PO 06/22/17 22:00 07/22/17 21:59 06/24/17 09:33 2 GM Digoxin (Lanoxin Tab) 0.125 mg DAILY@1600 PO 06/22/17 16:00 07/22/17 15:59 06/23/17 16:13 0.125 MG Diltiazem HCl (Cardizem Cd Cap) 120 mg BID PO 06/22/17 21:00 07/22/17 20:59 06/24/17 08:42 120 MG Docusate Sodium (coLACE CAP) 100 mg BID PO 06/22/17 21:00 07/22/17 20:59 06/24/17 08:43 100 MG Fenofibrate (Tricor Tab) 145 mg QAM PO 06/23/17 09:00 07/23/17 08:59 06/24/17 09:29 145 MG Gabapentin (Neurontin Cap) 100 mg TID PO 06/22/17 21:00 07/22/17 20:59 06/24/17 08:44 100 MG Magnesium Oxide (Mag-Ox Tab) 400 mg BID PO 06/22/17 21:00 07/22/17 20:59 06/24/17 08:44 400 MG Metoprolol Succinate (Toprol Xl Tab) 25 mg BID PO 06/22/17 21:00 07/22/17 20:59 06/24/17 08:46 25 MG Pantoprazole Sodium (Protonix Tab) 40 mg DAILY PO 06/23/17 09:00 07/23/17 08:59 06/24/17 08:45 40 MG Sucralfate (Carafate Tab) 1 gm ACHS PO 06/22/17 16:15 07/22/17 16:14 06/24/17 12:19 1 GM Trazodone HCl (Desyrel Tab) 150 mg HS PO 06/22/17 21:00 07/22/17 20:59 06/23/17 21:18 150 MG Miscellaneous Information (Order Awaiting Action) 1 ea DAILY@1700 PO 06/22/17 17:00 07/22/17 16:59 Miscellaneous Information (Order Awaiting Action) 1 ea BID17 PO 06/22/17 17:00 07/22/17 16:59 Amylase/Lipase/ Protease (Pancreaze (Lipase 10,500U) Cap) 2 cap TIDM PO 06/22/17 16:45 07/22/17 16:44 06/24/17 12:20 2 CAP Polyethylene (Miralax Powder Packet) 17 gm DAILY PO 06/23/17 09:00 07/23/17 08:59 06/23/17 08:19 17 GM Phenazopyridine HCl (Pyridium Tab) 200 mg TID PO 06/23/17 14:00 07/23/17 13:59 4/7/18 08:45 200 MG Tamsulosin HCl (Flomax Cap) 0.4 mg HS PO 06/23/17 21:00 07/23/17 20:59 06/23/17 21:17 0.4 MG Oxybutynin Chloride (Ditropan Tab) 5 mg BID PO 06/23/17 21:00 07/23/17 20:59 06/24/17 08:44 5 MG Enoxaparin Sodium (Lovenox Inj) 90 mg Q12H SQ 06/23/17 12:00 07/23/17 11:59 06/24/17 12:20 90 MG Nicotine (Nicoderm Cq 14MG Patch) 1 patch QAM TD 06/24/17 09:00 07/24/17 08:59 06/24/17 04:09 1 PATCH Miscellaneous (Remove Nicoderm Patch) 1 ea HS N/A 06/23/17 21:00 07/23/17 20:59 Potassium Chloride 20 meq/ Lactated Ringer's 1,010 ml @ 80 mls/hr [id number] IV 06/24/17 10:45 07/24/17 10:14 06/24/17 12:19 80 MLS/HR Objective Vital Signs Date Time Temp Pulse Resp B/P (MAP) Pulse Ox O2 Delivery O2 Flow Rate FiO2 06/24/17 11:18 36.7 87 17 115/67 (83) 91 Room Air 06/24/17 08:15 Nasal Cannula 2.0 06/24/17 08:08 36.5 82 19 114/72 (86) 91 Nasal Cannula 06/24/17 03:48 36.8 82 18 102/66 (78) 94 Nasal Cannula 2.0 06/24/17 00:15 Nasal Cannula 2.0 06/23/17 22:46 37.0 75 16 96/56 (69) 93 Nasal Cannula 2.0 06/23/17 21:13 75 114/70 (85) 06/23/17 19:04 37.2 79 16 103/64 (77) 93 Nasal Cannula 3.0 06/23/17 16:13 81 06/23/17 15:45 Nasal Cannula 2.0 06/23/17 15:35 37.3 82 16 105/67 (80) 91 Nasal Cannula 4.0 06/23/17 13:58 Nasal Cannula 2.0 Physical Exam General Appearance: WD/WN, + mild distress Eyes: normal inspection, EOMI, sclerae normal ENT: normal ENT inspection, hearing grossly normal, pharynx normal Neck: supple, no adenopathy, no JVD, trachea midline Respiratory/Chest: chest non-tender, lungs clear, normal breath sounds, no respiratory distress, no accessory muscle use Cardiovascular: regular rate, rhythm, no edema, no gallop, no JVD, no murmur Abdomen: normal bowel sounds, soft, no organomegaly, + tenderness (epigastric, LLQ, no rebound or rigidity) Extremities: normal range of motion, non-tender, normal inspection, no pedal edema, no calf tenderness, pelvis stable Neurologic/Psychiatric: passenger booking clerk II-XII nml as tested, alert, normal mood/affect, oriented x 3, + motor weakness Laboratory Results Last 24 Hours Test 06/23/17 17:14 06/23/17 21:02 06/24/17 07:07 06/24/17 08:29 Bedside Glucose 166 mg/dl 140 mg/dl 147 mg/dl White Blood Count 5.42 K/uL Red Blood Count 3.90 M/uL Hemoglobin 11.0 g/dL Hematocrit 34.3 % Mean Corpuscular Volume 87.9 fL Mean Corpuscular Hemoglobin 28.2 pg Mean Corpuscular Hemoglobin Concent 32.1 g/dl RDW Standard Deviation 43.4 fL RDW Coefficient of Variation 13.5 % Platelet Count 154 K/uL Mean Platelet Volume 10.2 fL Sodium Level 142 mmol/L Potassium Level 3.2 mmol/L Chloride Level 108 mmol/L Carbon Dioxide Level 27 mmol/L Anion Gap 7.0 mmol/L Blood Urea Nitrogen 3 mg/dl Creatinine 0.39 mg/dl Est Creatinine Clear Calc Drug Dose 161.3 ml/min Estimated GFR () 130.5 Estimated GFR (Non- 112.6 BUN/Creatinine Ratio 7.5 Random Glucose 128 mg/dl Calcium Level 9.7 mg/dl Magnesium Level 1.7 mg/dl Assessment and Plan 61 y/o female with a history of HTN, HLD, a-fib, DM II, neuropathy, pancreatic cancer s/p Whipple procedure, chronic pancreatitis, depression, gout, and GERD who presents with abdominal pain, nausea, and vomiting. The patient was found to have acute on chronic pancreatitis, a-fib with RVR, and left obstructing ureteral stone with hydronephrosis. A-fib with RVR--resolved with pain control and fluids and resuming medications -Continue digoxin 125 mcg PO qd, diltiazem 120 mg PO BID, Toprol XL 25 mg PO BID -Will likely need ERCP in near future. Will anticoagulate with therapeutic Lovenox rather than trying to get warfarin therapeutic and then holding again Left ureteral stone w/hydronephrosis--stable -9 mm obstructing stone in left proximal ureter w/mild hydronephrosis - cystoscopy with left ureteral stent on 06/22, tolerated well, less pain -Cipro 400 mg IV BID, day #3, cultures show enterococcus, sensitive to Cipro Acute on chronic pancreatitis, pancreatic cancer s/p Whipple--stable - Dilaudid IT COMPLIANCE ANALYST, patient not using as prescribed, hesitant to push button, encouraged her to use it for some relief and rest - discussed with Dr. Nolasco, need to see if MRCP can be done because she has coils in brain from aneurysm - ultimately needs evaluated with ERCP at [facility] - continue clear liquid diet, LR at 80cc/hr Hypomagnesemia--ongoing despite replacement - Mag 1.7 again on 06/24 - Mag sulfate 1 gm IV qd, continue mag oxide 400 mg PO BID - Continue to monitor. Goal mag over 2 due to a-fib with RVR HTN, HLD--stable -Continue metoprolol and diltiazem as above, Welchol 625 mg PO qd, Colestid 2 gm PO BID, fenofibrate 145 mg PO qd DM II--stable -Home Lantus reduced to 22 units SC qd due to NPO, can increase back to home dose if having adequate PO intake -Insulin sliding scale -Check BSGs q ac and qhs -HgbA1c 7.9 on 06/23 Neuropathy -Continue gabapentin 100 mg PO TID Depression/insomnia -Continue citalopram 20 mg PO qd and trazodone 150 mg PO hs Gout -Continue allopurinol 100 mg PO qd GERD -D/C IV Protonix, convert to PO DVT prophylaxis -Therapeutic Lovenox -SCDs Code Status -Level I, FULL RESUSCITATION STATUS Discharge planning: home
[2017-06-24] MEDS: DIGOXIN 0.125 MG TAB PO SCH (15:48)
[2017-06-24] MEDS: ONDANSETRON 4MG OD TAB PO PRN (19:02)
[2017-06-24] MEDS: HYDROmorphone INJ 0.5 MG/0.5 ML SYR IV PRN (19:02)
[2017-06-24] MEDS: TAMSULOSIN HCL 0.4 MG CAP PO SCH (20:55)
[2017-06-24] MEDS: TRAZODONE HCL 50 MG TAB PO SCH (20:56)
[2017-06-24] MEDS: INSULIN GLARGINE SOLOSTAR 100 UNITS/ML 3 ML PEN SC SCH (21:00)
[2017-06-25] VITALS (7 sets, daily range): BP systolic 102–115; BP diastolic 66–73; PULSE 68–85; TEMP 37–37.1; O2SAT 90–94
[2017-06-25] MEDS: PROMETHAZINE HCL INJ 25 MG in SODIUM CHLORIDE 0.9% 50ML 50 ML IV PRN ×4 (00:03→18:33)
[2017-06-25] MEDS: POTASSIUM CHLORIDE INJ 20 MEQ in LACTATED RINGER'S 1000ML 1,000 ML IV SCH ×2 (01:06→17:54)
[2017-06-25 06:35] LABS: HEMATOCRIT 33.3 % (37-47); MEAN CELL VOLUME 88.1 fL (80-100); MEAN CORPUSCULAR HEMOGLOBIN 29.1 pg (25-34); MEAN PLATELET VOLUME 10.2 fL (7.4-10.4); PLATELET COUNT 155 K/uL (130-400); RED CELL DISTRIBUTION WIDTH CV 13.4 % (11.5-14.5); RED CELL DISTRIBUTION WIDTH SD 43.4 fL (36.4-46.3); WHITE BLOOD COUNT 4.27 K/uL (4.8-10.8)
[2017-06-25] MEDS: HYDROmorphone HCL 0.5MG/ML 50 ML CASSETTE IV PRN ×2 (07:02→14:57)
[2017-06-25 07:13] LABS: CALCIUM 9.9 mg/dl (8.5-10.1); CREATININE 0.38 mg/dl (0.60-1.20); POTASSIUM 3.4 mmol/L (3.5-5.1)
[2017-06-25] MEDS ORDERED: MAGNESIUM SULFATE 1GM / D5W 1 GM in PREMIXED IN D5W 100 ML IV STA (08:59)
[2017-06-25] MEDS: POLYETHYLENE (MIRALAX) 17 GM PACK PO SCH (09:00)
[2017-06-25] MEDS: INSULIN ASPART 100 UNITS/ML 3 ML PEN SC SCH ×4 (09:17→21:08)
[2017-06-25] MEDS: NICOTINE 14 MG/24 HR TDSY TD SCH (09:19)
[2017-06-25] MEDS: SUCRALFATE 1 GM TAB PO SCH ×4 (09:21→20:54)
[2017-06-25] MEDS: PANCREAZE (LIPASE 10,500U) CAP PO SCH ×3 (09:21→16:27)
[2017-06-25] MEDS: METOPROLOL SUCC 25MG EXT REL TAB PO SCH ×2 (09:22→20:55)
[2017-06-25] MEDS: DILTIAZEM HCL 120 MG CAPCR PO SCH ×2 (09:22→20:56)
[2017-06-25] MEDS: DOCUSATE SODIUM 100 MG CAP PO SCH ×2 (09:22→20:56)
[2017-06-25] MEDS: CITALOPRAM 20 MG TAB PO SCH (09:22)
[2017-06-25] MEDS: OXYBUTYNIN CHLORIDE 5 MG TAB PO SCH ×2 (09:23→20:54)
[2017-06-25] MEDS: FENOFIBRATE 145 MG TAB PO SCH (09:23)
[2017-06-25] MEDS: ALLOPURINOL 100 MG TAB PO SCH (09:24)
[2017-06-25] MEDS: PHENAZOPYRIDINE HCL 200 MG TAB PO SCH ×3 (09:24→20:56)
[2017-06-25] MEDS: GABAPENTIN 100 MG CAP PO SCH ×3 (09:24→20:53)
[2017-06-25] MEDS: PANTOprazole SOD 40 MG TAB PO SCH (09:24)
[2017-06-25] MEDS: MAGNESIUM OXIDE 400 MG TAB PO SCH ×2 (09:25→20:55)
--- NOTE | 2017-06-25 10:38 | Progress Note ---
Subjective Date of Service: Jun 25, 2017. Subjective Pt evaluation today including: conversation w/ patient, physical exam, chart review, conversation w/ it security consultant, review of inpatient medication list Pain: Controlled with MOTORCYCLE ENGINE ASSEMBLER, baseline improving per patient report PO Intake: Pebbles clears, requesting regular diet Voiding: no voiding problems 61 yo female with L abdominal pain, POD#3 s/p L ureteral stent. She has intermittent hematuria, expected, slow improvement in her LUQ pain. She denies stone passage, appears quite comfortable on entry to the room, using MOTORCYCLE ENGINE ASSEMBLER with somnolence during interview. No other significant change since yesterday per patient. Problem List Medical Problems: (1) Abdominal pain Status: Acute (2) Acute on chronic pancreatitis Status: Acute (3) Atrial fibrillation with RVR Status: Acute (4) Back pain Status: Acute (5) Diffuse abdominal pain Status: Acute (6) Flank pain Status: Acute (7) Hypokalemia Status: Acute (8) Left flank pain Status: Acute (9) Pancreatitis Status: Acute (10) UTI (urinary tract infection) Status: Acute Review of Systems Constitutional: No fever, No chills Eyes: No worsening of vision ENT: No hearing loss Respiratory: No wheezing, No shortness of breath Cardiac: No chest pain Abdomen: + pain, No vomiting Female : + hematuria Neurologic: No memory loss, No paralysis Endo: + fatigue Skin: No new/changing skin lesions Objective Vital Signs Date Time Temp Pulse Resp B/P (MAP) Pulse Ox O2 Delivery O2 Flow Rate FiO2 06/25/17 07:27 37.1 79 16 115/73 (87) 90 Nasal Cannula 2.0 06/25/17 03:29 37.0 72 15 102/66 (78) 90 Nasal Cannula 3.0 06/24/17 23:35 Nasal Cannula 2.0 06/24/17 23:34 37.0 74 14 95/59 (71) 92 Nasal Cannula 2.5 06/24/17 20:53 79 109/71 (84) 91 Room Air 06/24/17 19:00 37.1 84 18 121/73 (89) 90 06/24/17 18:32 92 Room Air 06/24/17 15:48 73 06/24/17 15:45 36.9 86 20 101/63 (76) 92 Nasal Cannula 2.0 06/24/17 15:37 Nasal Cannula 2.0 06/24/17 11:18 36.7 87 17 115/67 (83) 91 Room Air Physical Exam General Appearance: WD/WN, no apparent distress ENT: hearing grossly normal Neck: supple, no adenopathy Respiratory/Chest: no respiratory distress, no accessory muscle use Cardiovascular: no JVD Abdomen: non tender, soft Extremities: non-tender Neurologic/Psychiatric: alert, oriented x 3 Skin: normal color Laboratory Results Last 24 Hours Test 06/24/17 12:05 06/24/17 17:14 06/24/17 19:53 06/25/17 06:20 Bedside Glucose 233 mg/dl 115 mg/dl 161 mg/dl White Blood Count 4.27 K/uL Red Blood Count 3.78 M/uL Hemoglobin 11.0 g/dL Hematocrit 33.3 % Mean Corpuscular Volume 88.1 fL Mean Corpuscular Hemoglobin 29.1 pg Mean Corpuscular Hemoglobin Concent 33.0 g/dl RDW Standard Deviation 43.4 fL RDW Coefficient of Variation 13.4 % Platelet Count 155 K/uL Mean Platelet Volume 10.2 fL Sodium Level 141 mmol/L Potassium Level 3.4 mmol/L Chloride Level 109 mmol/L Carbon Dioxide Level 28 mmol/L Anion Gap 4.0 mmol/L Blood Urea Nitrogen 3 mg/dl Creatinine 0.38 mg/dl Est Creatinine Clear Calc Drug Dose 165.6 ml/min Estimated GFR () 131.6 Estimated GFR (Non- 113.5 BUN/Creatinine Ratio 8.8 Random Glucose 114 mg/dl Calcium Level 9.9 mg/dl Magnesium Level 1.7 mg/dl Test 06/25/17 08:30 Bedside Glucose 127 mg/dl Assessment and Plan A/P 61-year-old female postoperative day #3 status post left ureteral stent placement for stone and abdominal pain. Outpatient stone management as discussed yesterday. Will likely want to avoid ESWL until pancreatic inflammation resolves. Continue management per primary service. Patient reports + appetite today, will receive regular diet. Thank you for allowing us to participate in this patient's care. Will sign off - please recall PRN new questions or concerns. Discharge planning: home
[2017-06-25] MEDS ORDERED: FENTANYL 12 MCG/HR TDSY TD SCH (11:00)
[2017-06-25] MEDS ORDERED: FENTANYL 25 MCG/HR TDSY TD SCH (11:00)
[2017-06-25] MEDS: CIPROFLOXACIN / D5W 400 MG in PREMIXED IN D5W 200 ML IV SCH ×2 (11:12→20:52)
[2017-06-25] MEDS: COLESTIPOL HCL 1 GM TAB PO SCH ×2 (11:16→22:11)
[2017-06-25] MEDS: SODIUM CHLORIDE 0.9% 1000ML 1,000 ML IV SCH (11:34)
--- NOTE | 2017-06-25 11:42 | Gastroenterology Progress Note ---
Progress Note Date of Service: Jun 25, 2017 Subjective Feeling improved, still having left upper quadrant pain. Discussed case with Dr. Albert of urology who thinks that her urinary pain should be tempered with the indwelling stent. Would like to have her diet advanced Medications Current Inpatient Medications Medications (Trade) Dose Ordered Sig/August Route Start Time Stop Time Status Last Admin Dose Admin Ciprofloxacin/ Dextrose 400 mg/ Prmx 200 ml @ 100 mls/hr Q12 IV 06/21/17 21:00 07/01/17 20:59 06/25/17 11:12 100 MLS/HR Albuterol (Ventolin Hfa Inhaler) 2 puffs QID PRN INH 06/21/17 20:15 07/21/17 20:14 Insulin Aspart (novoLOG ASPART) SLIDING SCALE If C... ACHS SC 06/21/17 21:00 07/21/17 20:59 06/25/17 09:17 4 UNITS Insulin Glargine (Lantus Solostar Pen) 22 units HS SC 06/21/17 21:00 07/21/17 20:59 06/24/17 21:00 22 UNITS Promethazine HCl 25 mg/Sodium Chloride 51 ml @ 204 mls/hr Q6H PRN IV 06/21/17 20:15 07/21/17 20:14 06/25/17 06:46 204 MLS/HR Ondansetron HCl (Zofran Odt) 4 mg Q8H PRN PO 06/21/17 23:00 07/21/17 22:59 06/24/17 19:02 4 MG Hydromorphone HCl (Dilaudid Inj) 0.5 mg Q2H PRN IV 06/22/17 02:00 07/05/17 18:59 06/24/17 19:02 0.5 MG Naloxone HCl (Narcan Inj) 0.1 mg Q5M PRN IV 06/22/17 11:45 07/22/17 11:44 Hydromorphone HCl (Dilaudid Wrapper Cashier) 25 mg PRN PRN IV 06/22/17 11:45 07/06/17 11:44 06/25/17 07:02 25 MG Sodium Chloride 1,000 ml @ 15 mls/hr Q24H IV 06/22/17 11:34 07/22/17 11:33 06/22/17 15:26 15 MLS/HR Allopurinol (Zyloprim Tab) 100 mg DAILY PO 06/23/17 09:00 07/23/17 08:59 06/25/17 09:24 100 MG Citalopram Hydrobromide (celeXA TAB) 20 mg DAILY PO 06/23/17 09:00 07/23/17 08:59 06/25/17 09:22 20 MG Colestipol HCl (Colestid Tab) 2 gm BID@1000,2200 PO 06/22/17 22:00 07/22/17 21:59 06/25/17 11:16 2 GM Digoxin (Lanoxin Tab) 0.125 mg DAILY@1600 PO 06/22/17 16:00 07/22/17 15:59 06/24/17 15:48 0.125 MG Diltiazem HCl (Cardizem Cd Cap) 120 mg BID PO 06/22/17 21:00 07/22/17 20:59 06/25/17 09:22 120 MG Docusate Sodium (coLACE CAP) 100 mg BID PO 06/22/17 21:00 07/22/17 20:59 06/25/17 09:22 100 MG Fenofibrate (Tricor Tab) 145 mg QAM PO 06/23/17 09:00 07/23/17 08:59 06/25/17 09:23 145 MG Gabapentin (Neurontin Cap) 100 mg TID PO 06/22/17 21:00 07/22/17 20:59 06/25/17 09:24 100 MG Magnesium Oxide (Mag-Ox Tab) 400 mg BID PO 06/22/17 21:00 07/22/17 20:59 06/25/17 09:25 400 MG Metoprolol Succinate (Toprol Xl Tab) 25 mg BID PO 06/22/17 21:00 07/22/17 20:59 06/25/17 09:22 25 MG Pantoprazole Sodium (Protonix Tab) 40 mg DAILY PO 06/23/17 09:00 07/23/17 08:59 06/25/17 09:24 40 MG Sucralfate (Carafate Tab) 1 gm ACHS PO 06/22/17 16:15 07/22/17 16:14 06/25/17 09:21 1 GM Trazodone HCl (Desyrel Tab) 150 mg HS PO 06/22/17 21:00 07/22/17 20:59 06/24/17 20:56 150 MG Miscellaneous Information (Order Awaiting Action) 1 ea DAILY@1700 PO 06/22/17 17:00 07/22/17 16:59 Miscellaneous Information (Order Awaiting Action) 1 ea BID17 PO 06/22/17 17:00 07/22/17 16:59 Amylase/Lipase/ Protease (Pancreaze (Lipase 10,500U) Cap) 2 cap TIDM PO 06/22/17 16:45 07/22/17 16:44 06/25/17 09:21 2 CAP Polyethylene (Miralax Powder Packet) 17 gm DAILY PO 06/23/17 09:00 07/23/17 08:59 06/23/17 08:19 17 GM Phenazopyridine HCl (Pyridium Tab) 200 mg TID PO 06/23/17 14:00 07/23/17 13:59 06/25/17 09:24 200 MG Tamsulosin HCl (Flomax Cap) 0.4 mg HS PO 06/23/17 21:00 07/23/17 20:59 06/24/17 20:55 0.4 MG Oxybutynin Chloride (Ditropan Tab) 5 mg BID PO 06/23/17 21:00 07/23/17 20:59 06/25/17 09:23 5 MG Enoxaparin Sodium (Lovenox Inj) 90 mg Q12H SQ 06/23/17 12:00 07/23/17 11:59 06/24/17 23:43 90 MG Nicotine (Nicoderm Cq 14MG Patch) 1 patch QAM TD 06/24/17 09:00 07/24/17 08:59 06/25/17 09:19 1 PATCH Miscellaneous (Remove Nicoderm Patch) 1 ea HS N/A 06/23/17 21:00 07/23/17 20:59 06/24/17 21:10 1 EA Potassium Chloride 20 meq/ Lactated Ringer's 1,010 ml @ 80 mls/hr [id number] IV 06/24/17 10:45 07/24/17 10:14 06/25/17 01:06 80 MLS/HR Fentanyl (Duragesic Patch) 25 mcg Q72H TD 06/25/17 11:00 07/09/17 10:59 06/25/17 11:07 25 MCG Fentanyl (Duragesic Patch) 12 mcg Q72H TD 06/25/17 11:00 07/09/17 10:59 06/25/17 11:08 12 MCG Miscellaneous (Fentanyl Patch Remove & Waste) 1 ea Q3D N/A 06/28/17 10:59 07/28/17 10:58 Miscellaneous Information (Check Fentanyl Patch Placement) 1 ea QS N/A 06/25/17 16:00 07/25/17 15:59 Objective Vital Signs Date Time Temp Pulse Resp B/P (MAP) Pulse Ox O2 Delivery O2 Flow Rate FiO2 06/25/17 07:27 37.1 79 16 115/73 (87) 90 Nasal Cannula 2.0 06/25/17 03:29 37.0 72 15 102/66 (78) 90 Nasal Cannula 3.0 06/24/17 23:35 Nasal Cannula 2.0 06/24/17 23:34 37.0 74 14 95/59 (71) 92 Nasal Cannula 2.5 06/24/17 20:53 79 109/71 (84) 91 Room Air 06/24/17 19:00 37.1 84 18 121/73 (89) 90 06/24/17 18:32 92 Room Air 06/24/17 15:48 73 06/24/17 15:45 36.9 86 20 101/63 (76) 92 Nasal Cannula 2.0 06/24/17 15:37 Nasal Cannula 2.0 Physical Exam General Appearance: WD/WN, no apparent distress, + pertinent finding (Sleeping in the room but easily arousable, interestingly minimal pain upon palpation while sleeping) Respiratory/Chest: chest non-tender, lungs clear Cardiovascular: regular rate, rhythm, no edema Abdomen: normal bowel sounds, non tender, soft Extremities: normal range of motion, non-tender Neurologic/Psych: houseperson II-XII nml as tested, no motor/sensory deficits Laboratory Results Last 24 Hours Test 06/24/17 12:05 06/24/17 17:14 06/24/17 19:53 06/25/17 06:20 Bedside Glucose 233 mg/dl 115 mg/dl 161 mg/dl White Blood Count 4.27 K/uL Red Blood Count 3.78 M/uL Hemoglobin 11.0 g/dL Hematocrit 33.3 % Mean Corpuscular Volume 88.1 fL Mean Corpuscular Hemoglobin 29.1 pg Mean Corpuscular Hemoglobin Concent 33.0 g/dl RDW Standard Deviation 43.4 fL RDW Coefficient of Variation 13.4 % Platelet Count 155 K/uL Mean Platelet Volume 10.2 fL Sodium Level 141 mmol/L Potassium Level 3.4 mmol/L Chloride Level 109 mmol/L Carbon Dioxide Level 28 mmol/L Anion Gap 4.0 mmol/L Blood Urea Nitrogen 3 mg/dl Creatinine 0.38 mg/dl Est Creatinine Clear Calc Drug Dose 165.6 ml/min Estimated GFR () 131.6 Estimated GFR (Non- 113.5 BUN/Creatinine Ratio 8.8 Random Glucose 114 mg/dl Calcium Level 9.9 mg/dl Magnesium Level 1.7 mg/dl Test 06/25/17 08:30 Bedside Glucose 127 mg/dl Assessment and Plan Ms. Torres is a 61 yr old female with acute on chronic pancreatitis S/P Whipple procedure in 2013 for pancreatic cancer. Plan: 1. IV fluids 2. Consider MRCP tomorrow depending her tolerance of more solid food, she would have to obtain the outside operative reports of her aneurysmal clipping prior to safety of MRCP. Prior to discharge or with Dr. dang in [place] and then suggest following up with pancreaticobiliary team at [facility] 3. Because pt continues to report significant pain, despite being able to sleep , okay to advance diet to low-fat liquids and poor low-fat solids 4. Advance diet as tolerated 5. Call with questions
[2017-06-25] MEDS: ENOXAPARIN 100 MG/1ML SYR SQ SCH ×2 (13:27→23:41)
--- NOTE | 2017-06-25 13:48 | Progress Note ---
Subjective Date of Service: Jun 25, 2017. Subjective Pt evaluation today including: conversation w/ patient, physical exam, lab review, conversation w/ senior information security consultant, review of inpatient medication list Pain: improved today PO Intake: improving Voiding: no voiding problems patient feeling a little better, less use of CHAR PULLER added back Fentanyl patch and she feels better she is hungry, GI okay with liquid diet, low fat discussed the case with Dr. Nolasco, he recommends follow up with [facility] to perform ERCP appreciate Dr. Albert's recommendations, urology will sign off, follow up in office for stone management reviewed labs, K is 3.4, Mg is 1.7, Cr 0.3, WBC normal Problem List Medical Problems: (1) Abdominal pain Status: Acute (2) Acute on chronic pancreatitis Status: Acute (3) Atrial fibrillation with RVR Status: Acute (4) Back pain Status: Acute (5) Diffuse abdominal pain Status: Acute (6) Flank pain Status: Acute (7) Hypokalemia Status: Acute (8) Left flank pain Status: Acute (9) Pancreatitis Status: Acute (10) UTI (urinary tract infection) Status: Acute Review of Systems Constitutional: + weakness, + fatigue Abdomen: + pain (epigastric, left flank) Female : + dysuria, + hematuria All Other Systems: Reviewed and Negative Medications Current Inpatient Medications Medications (Trade) Dose Ordered Sig/August Route Start Time Stop Time Status Last Admin Dose Admin Ciprofloxacin/ Dextrose 400 mg/ Prmx 200 ml @ 100 mls/hr Q12 IV 06/21/17 21:00 07/01/17 20:59 06/25/17 11:12 100 MLS/HR Albuterol (Ventolin Hfa Inhaler) 2 puffs QID PRN INH 06/21/17 20:15 07/21/17 20:14 Insulin Aspart (novoLOG ASPART) SLIDING SCALE If C... ACHS SC 06/21/17 21:00 07/21/17 20:59 06/25/17 13:26 2 UNITS Insulin Glargine (Lantus Solostar Pen) 22 units HS SC 06/21/17 21:00 07/21/17 20:59 06/24/17 21:00 22 UNITS Promethazine HCl 25 mg/Sodium Chloride 51 ml @ 204 mls/hr Q6H PRN IV 06/21/17 20:15 07/21/17 20:14 06/25/17 06:46 204 MLS/HR Ondansetron HCl (Zofran Odt) 4 mg Q8H PRN PO 06/21/17 23:00 07/21/17 22:59 06/24/17 19:02 4 MG Hydromorphone HCl (Dilaudid Inj) 0.5 mg Q2H PRN IV 06/22/17 02:00 07/05/17 18:59 06/24/17 19:02 0.5 MG Allopurinol (Zyloprim Tab) 100 mg DAILY PO 06/23/17 09:00 07/23/17 08:59 06/25/17 09:24 100 MG Citalopram Hydrobromide (celeXA TAB) 20 mg DAILY PO 06/23/17 09:00 07/23/17 08:59 06/25/17 09:22 20 MG Colestipol HCl (Colestid Tab) 2 gm BID@1000,2200 PO 06/22/17 22:00 07/22/17 21:59 06/25/17 11:16 2 GM Digoxin (Lanoxin Tab) 0.125 mg DAILY@1600 PO 06/22/17 16:00 07/22/17 15:59 06/24/17 15:48 0.125 MG Diltiazem HCl (Cardizem Cd Cap) 120 mg BID PO 06/22/17 21:00 07/22/17 20:59 06/25/17 09:22 120 MG Docusate Sodium (coLACE CAP) 100 mg BID PO 06/22/17 21:00 07/22/17 20:59 06/25/17 09:22 100 MG Fenofibrate (Tricor Tab) 145 mg QAM PO 06/23/17 09:00 07/23/17 08:59 06/25/17 09:23 145 MG Gabapentin (Neurontin Cap) 100 mg TID PO 06/22/17 21:00 07/22/17 20:59 06/25/17 13:21 100 MG Magnesium Oxide (Mag-Ox Tab) 400 mg BID PO 06/22/17 21:00 07/22/17 20:59 06/25/17 09:25 400 MG Metoprolol Succinate (Toprol Xl Tab) 25 mg BID PO 06/22/17 21:00 07/22/17 20:59 06/25/17 09:22 25 MG Pantoprazole Sodium (Protonix Tab) 40 mg DAILY PO 06/23/17 09:00 07/23/17 08:59 06/25/17 09:24 40 MG Sucralfate (Carafate Tab) 1 gm ACHS PO 06/22/17 16:15 07/22/17 16:14 06/25/17 13:20 1 GM Trazodone HCl (Desyrel Tab) 150 mg HS PO 06/22/17 21:00 07/22/17 20:59 06/24/17 20:56 150 MG Miscellaneous Information (Order Awaiting Action) 1 ea DAILY@1700 PO 06/22/17 17:00 07/22/17 16:59 Miscellaneous Information (Order Awaiting Action) 1 ea BID17 PO 06/22/17 17:00 07/22/17 16:59 Amylase/Lipase/ Protease (Pancreaze (Lipase 10,500U) Cap) 2 cap TIDM PO 06/22/17 16:45 07/22/17 16:44 06/25/17 13:21 2 CAP Polyethylene (Miralax Powder Packet) 17 gm DAILY PO 06/23/17 09:00 07/23/17 08:59 06/23/17 08:19 17 GM Phenazopyridine HCl (Pyridium Tab) 200 mg TID PO 06/23/17 14:00 07/23/17 13:59 06/25/17 13:22 200 MG Tamsulosin HCl (Flomax Cap) 0.4 mg HS PO 06/23/17 21:00 07/23/17 20:59 06/24/17 20:55 0.4 MG Oxybutynin Chloride (Ditropan Tab) 5 mg BID PO 06/23/17 21:00 07/23/17 20:59 06/25/17 09:23 5 MG Enoxaparin Sodium (Lovenox Inj) 90 mg Q12H SQ 06/23/17 12:00 07/23/17 11:59 06/25/17 13:27 90 MG Nicotine (Nicoderm Cq 14MG Patch) 1 patch QAM TD 06/24/17 09:00 07/24/17 08:59 06/25/17 09:19 1 PATCH Miscellaneous (Remove Nicoderm Patch) 1 ea HS N/A 06/23/17 21:00 07/23/17 20:59 06/24/17 21:10 1 EA Potassium Chloride 20 meq/ Lactated Ringer's 1,010 ml @ 80 mls/hr [id number] IV 06/24/17 10:45 07/24/17 10:14 06/25/17 01:06 80 MLS/HR Fentanyl (Duragesic Patch) 25 mcg Q72H TD 06/25/17 11:00 07/09/17 10:59 06/25/17 11:07 25 MCG Fentanyl (Duragesic Patch) 12 mcg Q72H TD 06/25/17 11:00 07/09/17 10:59 06/25/17 11:08 12 MCG Miscellaneous (Fentanyl Patch Remove & Waste) 1 ea Q3D N/A 06/28/17 10:59 07/28/17 10:58 Miscellaneous Information (Check Fentanyl Patch Placement) 1 ea QS N/A 06/25/17 16:00 07/25/17 15:59 Hydromorphone HCl (Dilaudid Inj) 1 mg Q3H PRN IV 06/25/17 13:45 07/09/17 13:44 UNV Objective Vital Signs Date Time Temp Pulse Resp B/P (MAP) Pulse Ox O2 Delivery O2 Flow Rate FiO2 06/25/17 07:27 37.1 79 16 115/73 (87) 90 Nasal Cannula 2.0 06/25/17 03:29 37.0 72 15 102/66 (78) 90 Nasal Cannula 3.0 06/24/17 23:35 Nasal Cannula 2.0 06/24/17 23:34 37.0 74 14 95/59 (71) 92 Nasal Cannula 2.5 06/24/17 20:53 79 109/71 (84) 91 Room Air 06/24/17 19:00 37.1 84 18 121/73 (89) 90 06/24/17 18:32 92 Room Air 06/24/17 15:48 73 06/24/17 15:45 36.9 86 20 101/63 (76) 92 Nasal Cannula 2.0 06/24/17 15:37 Nasal Cannula 2.0 Physical Exam General Appearance: WD/WN, no apparent distress Eyes: normal inspection, EOMI, sclerae normal ENT: normal ENT inspection, hearing grossly normal, pharynx normal Neck: supple, no adenopathy, no JVD, trachea midline Respiratory/Chest: chest non-tender, lungs clear, normal breath sounds, no respiratory distress, no accessory muscle use Cardiovascular: regular rate, rhythm, no edema, no gallop, no JVD, no murmur Abdomen: normal bowel sounds, soft, no organomegaly, + tenderness (epigastric, no rebound or rigidity) Extremities: normal range of motion, non-tender, normal inspection, no pedal edema, no calf tenderness, pelvis stable Neurologic/Psychiatric: occupational medicine officer II-XII nml as tested, no motor/sensory deficits, alert, oriented x 3, + depressed affect Skin: normal color, warm/dry, no rash Laboratory Results Last 24 Hours Test 06/24/17 17:14 06/24/17 19:53 06/25/17 06:20 06/25/17 08:30 Bedside Glucose 115 mg/dl 161 mg/dl 127 mg/dl White Blood Count 4.27 K/uL Red Blood Count 3.78 M/uL Hemoglobin 11.0 g/dL Hematocrit 33.3 % Mean Corpuscular Volume 88.1 fL Mean Corpuscular Hemoglobin 29.1 pg Mean Corpuscular Hemoglobin Concent 33.0 g/dl RDW Standard Deviation 43.4 fL RDW Coefficient of Variation 13.4 % Platelet Count 155 K/uL Mean Platelet Volume 10.2 fL Sodium Level 141 mmol/L Potassium Level 3.4 mmol/L Chloride Level 109 mmol/L Carbon Dioxide Level 28 mmol/L Anion Gap 4.0 mmol/L Blood Urea Nitrogen 3 mg/dl Creatinine 0.38 mg/dl Est Creatinine Clear Calc Drug Dose 165.6 ml/min Estimated GFR () 131.6 Estimated GFR (Non- 113.5 BUN/Creatinine Ratio 8.8 Random Glucose 114 mg/dl Calcium Level 9.9 mg/dl Magnesium Level 1.7 mg/dl Test 06/25/17 11:52 06/25/17 12:14 Bedside Glucose 144 mg/dl 133 mg/dl Assessment and Plan 61 y/o female with a history of HTN, HLD, a-fib, DM II, neuropathy, pancreatic cancer s/p Whipple procedure, chronic pancreatitis, depression, gout, and GERD who presents with abdominal pain, nausea, and vomiting. The patient was found to have acute on chronic pancreatitis, a-fib with RVR, and left obstructing ureteral stone with hydronephrosis. Left ureteral stone w/hydronephrosis--stable -9 mm obstructing stone in left proximal ureter w/mild hydronephrosis - cystoscopy with left ureteral stent on 06/22, tolerated well, less pain -Cipro 400 mg IV BID, day #4, cultures show enterococcus, sensitive to Cipro - will need 14 days total, last day would be 07/05 Acute on chronic pancreatitis, pancreatic cancer s/p Whipple in 2011 - less pain today, added back Fentanyl patch, stop Dilaudid CHAR PULLER, Dilaudid 1mg IV q4 PRN added - discussed with Dr. Nolasco, need to see if MRCP can be done because she has coils in brain from aneurysm -- discussed with patient, coils were 20 years ago, they inquired several years ago and there was no record as to what material, could not have MRI - ultimately needs evaluated with ERCP at [facility], [place] - advance to full liquid, low fat diet per GI A-fib with RVR--resolved with pain control and fluids and resuming medications -Continue digoxin 125 mcg PO qd, diltiazem 120 mg PO BID, Toprol XL 25 mg PO BID, rates are controlled again today -Will likely need ERCP in near future but will be outpatient - on Lovenox, will resume Coumadin today Chronic abdominal pain, due to pancreatitis - three weeks ago she had a celiac block, only lasted a few days - was discharged on Fentanyl patch and Nucynta, however, her co-pay was too high for Nucynta, could not afford it - will consult pain management to see tomorrow to offer recommendations for pain control regimen on discharge Hypomagnesemia--ongoing despite replacement - Mag 1.7 again on 06/25 - Mag sulfate 1 gm IV qd, continue mag oxide 400 mg PO BID - Continue to monitor - Hypokalemia: 3.4 today, she is on LR + 20mEq potassium, continue to monitor HTN, HLD--stable -Continue metoprolol and diltiazem as above, Welchol 625 mg PO qd, Colestid 2 gm PO BID, fenofibrate 145 mg PO qd DM II--stable -Home Lantus reduced to 22 units SC qd due to NPO, can increase back to home dose if having adequate PO intake -Insulin sliding scale -Check BSGs q ac and qhs -HgbA1c 7.9 on 06/23 Neuropathy -Continue gabapentin 100 mg PO TID Depression/insomnia -Continue citalopram 20 mg PO qd and trazodone 150 mg PO hs Gout -Continue allopurinol 100 mg PO qd GERD -D/C IV Protonix, convert to PO DVT prophylaxis -Therapeutic Lovenox, start Coumadin -SCDs Code Status -Level I, FULL RESUSCITATION STATUS Discharge planning: home
[2017-06-25] MEDS ORDERED: WARFARIN SOD 4 MG TAB PO SCH (16:00)
[2017-06-25] MEDS: CHECK FENTANYL PATCH PLACEMENT SCH ×2 (16:17→23:40)
[2017-06-25] MEDS: DIGOXIN 0.125 MG TAB PO SCH (16:23)
[2017-06-25] MEDS: ONDANSETRON 4MG OD TAB PO PRN (20:07)
[2017-06-25] MEDS: TRAZODONE HCL 50 MG TAB PO SCH (20:54)
[2017-06-25] MEDS: TAMSULOSIN HCL 0.4 MG CAP PO SCH (20:55)
[2017-06-25] MEDS: INSULIN GLARGINE SOLOSTAR 100 UNITS/ML 3 ML PEN SC SCH (21:09)
[2017-06-25] MEDS: HYDROmorphone INJ 2 MG/ML SYR/VIAL IV PRN (21:16)
[2017-06-26] VITALS (8 sets, daily range): BP systolic 101–125; BP diastolic 61–80; PULSE 78–89; TEMP 36.7–36.9; O2SAT 90–93
[2017-06-26] MEDS: PROMETHAZINE HCL INJ 25 MG in SODIUM CHLORIDE 0.9% 50ML 50 ML IV PRN (01:24)
[2017-06-26] MEDS: POTASSIUM CHLORIDE INJ 20 MEQ in LACTATED RINGER'S 1000ML 1,000 ML IV SCH ×2 (05:39→13:17)
[2017-06-26 06:26] LABS: HEMATOCRIT 34.3 % (37-47); HEMOGLOBIN 11.2 g/dL (12.0-16.0); MEAN CELL VOLUME 88.4 fL (80-100); MEAN CORPUSCULAR HEMOGLOBIN 28.9 pg (25-34); MEAN CORPUSCULAR HGB CONC 32.7 g/dl (32-36); MEAN PLATELET VOLUME 9.9 fL (7.4-10.4); PLATELET COUNT 166 K/uL (130-400); RED CELL DISTRIBUTION WIDTH CV 13.4 % (11.5-14.5); WHITE BLOOD COUNT 4.22 K/uL (4.8-10.8)
[2017-06-26 06:36] LABS: INR 1.1 (0.9-1.1)
[2017-06-26 07:02] LABS: CALCIUM 10.2 mg/dl (8.5-10.1); CREATININE 0.49 mg/dl (0.60-1.20); POTASSIUM 3.4 mmol/L (3.5-5.1)
[2017-06-26] MEDS: HYDROmorphone INJ 2 MG/ML SYR/VIAL IV PRN ×4 (08:15→19:27)
[2017-06-26] MEDS: SUCRALFATE 1 GM TAB PO SCH ×4 (08:16→21:49)
[2017-06-26] MEDS: CHECK FENTANYL PATCH PLACEMENT SCH ×3 (08:16→23:52)
[2017-06-26] MEDS: PANCREAZE (LIPASE 10,500U) CAP PO SCH ×3 (08:17→17:59)
[2017-06-26] MEDS: INSULIN ASPART 100 UNITS/ML 3 ML PEN SC SCH ×4 (08:30→21:53)
[2017-06-26] MEDS: POLYETHYLENE (MIRALAX) 17 GM PACK PO SCH ×2 (09:00→09:12)
[2017-06-26] MEDS: CITALOPRAM 20 MG TAB PO SCH (09:09)
[2017-06-26] MEDS: CIPROFLOXACIN / D5W 400 MG in PREMIXED IN D5W 200 ML IV SCH ×2 (09:09→21:47)
[2017-06-26] MEDS: NICOTINE 14 MG/24 HR TDSY TD SCH (09:10)
[2017-06-26] MEDS: COLESTIPOL HCL 1 GM TAB PO SCH ×2 (09:10→21:47)
[2017-06-26] MEDS: GABAPENTIN 100 MG CAP PO SCH ×3 (09:11→21:49)
[2017-06-26] MEDS: FENOFIBRATE 145 MG TAB PO SCH (09:11)
[2017-06-26] MEDS: OXYBUTYNIN CHLORIDE 5 MG TAB PO SCH ×2 (09:11→21:48)
[2017-06-26] MEDS: PANTOprazole SOD 40 MG TAB PO SCH (09:11)
[2017-06-26] MEDS: PHENAZOPYRIDINE HCL 200 MG TAB PO SCH ×3 (09:11→21:47)
[2017-06-26] MEDS: METOPROLOL SUCC 25MG EXT REL TAB PO SCH ×2 (09:12→21:49)
[2017-06-26] MEDS: ALLOPURINOL 100 MG TAB PO SCH (09:12)
[2017-06-26] MEDS: DOCUSATE SODIUM 100 MG CAP PO SCH ×2 (09:12→21:48)
[2017-06-26] MEDS: DILTIAZEM HCL 120 MG CAPCR PO SCH ×2 (09:12→21:48)
[2017-06-26] MEDS: MAGNESIUM OXIDE 400 MG TAB PO SCH ×2 (09:12→21:48)
[2017-06-26] MEDS ORDERED: HYDROCODONE/ACETAMIN 5/325MG TAB PO PRN (09:15)
--- NOTE | 2017-06-26 09:48 | Pain Management Consultation ---
Pain Management Consultation Date of Consultation Jun 26, 2017. Reason for Consultation Mrs. Torres is a 61-year-old white female who is known to the pain service with history of recurrent midepigastric abdominal pain secondary to pancreatitis with known history of pancreatic cancer status post Whipple procedure 2013. Patient underwent celiac plexus block last week on 06/09/2017 with a few days relief of her pain. She previously had 6 months worth of pain relief after previous celiac plexus diagnostic block. Patient reported recurrence of pain and was recently admitted and discharged with intractable pain. She presents today with the same complaints of pain in the midepigastric , left upper quadrant and left mid thoracic back. She reports that there plans for GI at [facility] to further evaluate her with possible ERCP to minimize her symptoms. Patient reports her pain is ranging between a 7-9/10 over the past 12 hours. She is utilizing fentanyl patch with some relief of pain. She continues to experience nausea with diminished appetite. Patient denies other constitutional complaints at today's visit. History Past Medical: (1) Dehydration (2) Right sided abdominal pain (3) Left sided abdominal pain (4) UTI (urinary tract infection) (5) Acute on chronic pancreatitis (6) Hypokalemia (7) Pancreatitis (8) Diffuse abdominal pain (9) Heart disease (10) HTN (hypertension) (11) Kidney disease (12) Kidney stone (13) Aneurysm (14) Constipation (15) Abdominal pain (16) Pancreatic cancer (17) Abdominal pain (18) Renal colic (19) Diverticulitis (20) Hyperglycemia (21) A-fib (22) Kidney stones (23) Hx of cholecystectomy (24) Hx of appendectomy Family History FH: cancer FH: heart disease Hypertension Kidney disease Kidney stones Seizures Social / Work History Smokeless Tobacco Use: No Alcohol Use: none Drug Use: none Marital Status: Housing Status: lives with significant other Occupation: disabled Allergies Coded Allergies: Iodinated Diagnostic Agents (Verified Allergy, Severe, HIVES, AIRWAY SWELLS FROM CT DYE, 01/18/17) Iodine (Verified Allergy, Severe, airway swells shut, 06/08/17) Amoxicillin (Verified Allergy, Intermediate, RASH, 06/15/17) Azithromycin (Verified Allergy, Intermediate, RASH, 06/08/17) Ceftriaxone (Verified Allergy, Intermediate, RASH, 06/04/17) Adhesives (Verified Allergy, Mild, RASH AND SORE SKIN FROM TAPE ADHESIVES , 01/18/17) Alcohol (Verified Allergy, Unknown, hives, 01/18/17) no alcohol wipes Atorvastatin (Verified Allergy, Unknown, UNKNOWN, 01/18/17) Isopropyl Alcohol (Verified Allergy, Unknown, UNKNOWN, 01/18/17) Lemon (Verified Allergy, Unknown, ., 06/24/17) Lemon Oil allergy listed in Infer (drug) Lemon Oil (Verified Allergy, Unknown, UNKNOWN, 01/18/17) Lorazepam (Verified Allergy, Unknown, RASH, 01/18/17) Morphine (Verified Allergy, Unknown, stops heart, 06/08/17) Rosuvastatin (Verified Allergy, Unknown, UNKNOWN, 01/18/17) Shellfish (Verified Allergy, Unknown, UNKNOWN, 01/18/17) Sulfamethoxazole w/Trimethoprim (Verified Allergy, Unknown, UNKNOWN, ) Ciprofloxacin (Verified Adverse Reaction, Unknown, INTERFERES WITH COUMADIN, 01/18/17) Ezetimibe (Verified Adverse Reaction, Unknown, RAPID HEART BEAT, 01/18/17) Gemfibrozil (Verified Adverse Reaction, Unknown, MYALGIAS, 01/18/17) Lovastatin (Verified Adverse Reaction, Unknown, MYALGIAS, 06/08/17) Ondansetron (Verified Adverse Reaction, Unknown, rash, 06/22/17) Tramadol (Verified Adverse Reaction, Unknown, CHEST TIGHTNESS, 01/18/17) Medications Current Inpatient Medications Medications (Trade) Dose Ordered Sig/August Route Start Time Stop Time Status Last Admin Dose Admin Ciprofloxacin/ Dextrose 400 mg/ Prmx 200 ml @ 100 mls/hr Q12 IV 06/21/17 21:00 07/01/17 20:59 06/26/17 09:09 100 MLS/HR Albuterol (Ventolin Hfa Inhaler) 2 puffs QID PRN INH 06/21/17 20:15 07/21/17 20:14 Insulin Aspart (novoLOG ASPART) SLIDING SCALE If C... ACHS SC 06/21/17 21:00 07/21/17 20:59 06/26/17 08:30 4 UNITS Insulin Glargine (Lantus Solostar Pen) 22 units HS SC 06/21/17 21:00 07/21/17 20:59 06/25/17 21:09 22 UNITS Promethazine HCl 25 mg/Sodium Chloride 51 ml @ 204 mls/hr Q6H PRN IV 06/21/17 20:15 07/21/17 20:14 06/26/17 01:24 204 MLS/HR Ondansetron HCl (Zofran Odt) 4 mg Q8H PRN PO 06/21/17 23:00 07/21/17 22:59 06/25/17 20:07 4 MG Hydromorphone HCl (Dilaudid Inj) 0.5 mg Q2H PRN IV 06/22/17 02:00 07/05/17 18:59 06/24/17 19:02 0.5 MG Allopurinol (Zyloprim Tab) 100 mg DAILY PO 06/23/17 09:00 07/23/17 08:59 06/26/17 09:12 100 MG Citalopram Hydrobromide (celeXA TAB) 20 mg DAILY PO 06/23/17 09:00 07/23/17 08:59 06/26/17 09:09 20 MG Colestipol HCl (Colestid Tab) 2 gm BID@1000,2200 PO 06/22/17 22:00 07/22/17 21:59 06/26/17 09:10 2 GM Digoxin (Lanoxin Tab) 0.125 mg DAILY@1600 PO 06/22/17 16:00 07/22/17 15:59 06/25/17 16:23 0.125 MG Diltiazem HCl (Cardizem Cd Cap) 120 mg BID PO 06/22/17 21:00 07/22/17 20:59 06/26/17 09:12 120 MG Docusate Sodium (coLACE CAP) 100 mg BID PO 06/22/17 21:00 07/22/17 20:59 06/26/17 09:12 100 MG Fenofibrate (Tricor Tab) 145 mg QAM PO 06/23/17 09:00 07/23/17 08:59 06/26/17 09:11 145 MG Gabapentin (Neurontin Cap) 100 mg TID PO 06/22/17 21:00 07/22/17 20:59 06/26/17 09:11 100 MG Magnesium Oxide (Mag-Ox Tab) 400 mg BID PO 06/22/17 21:00 07/22/17 20:59 06/26/17 09:12 400 MG Metoprolol Succinate (Toprol Xl Tab) 25 mg BID PO 06/22/17 21:00 07/22/17 20:59 06/26/17 09:12 25 MG Pantoprazole Sodium (Protonix Tab) 40 mg DAILY PO 06/23/17 09:00 07/23/17 08:59 06/26/17 09:11 40 MG Sucralfate (Carafate Tab) 1 gm ACHS PO 06/22/17 16:15 07/22/17 16:14 06/26/17 08:16 1 GM Trazodone HCl (Desyrel Tab) 150 mg HS PO 06/22/17 21:00 07/22/17 20:59 06/25/17 20:54 150 MG Miscellaneous Information (Order Awaiting Action) 1 ea DAILY@1700 PO 06/22/17 17:00 07/22/17 16:59 Miscellaneous Information (Order Awaiting Action) 1 ea BID17 PO 06/22/17 17:00 07/22/17 16:59 Amylase/Lipase/ Protease (Pancreaze (Lipase 10,500U) Cap) 2 cap TIDM PO 06/22/17 16:45 07/22/17 16:44 06/26/17 08:17 2 CAP Polyethylene (Miralax Powder Packet) 17 gm DAILY PO 06/23/17 09:00 07/23/17 08:59 06/23/17 08:19 17 GM Phenazopyridine HCl (Pyridium Tab) 200 mg TID PO 06/23/17 14:00 07/23/17 13:59 06/26/17 09:11 200 MG Tamsulosin HCl (Flomax Cap) 0.4 mg HS PO 06/23/17 21:00 07/23/17 20:59 06/25/17 20:55 0.4 MG Oxybutynin Chloride (Ditropan Tab) 5 mg BID PO 06/23/17 21:00 07/23/17 20:59 06/26/17 09:11 5 MG Enoxaparin Sodium (Lovenox Inj) 90 mg Q12H SQ 06/23/17 12:00 07/23/17 11:59 06/25/17 23:41 90 MG Nicotine (Nicoderm Cq 14MG Patch) 1 patch QAM TD 06/24/17 09:00 07/24/17 08:59 06/26/17 09:10 1 PATCH Miscellaneous (Remove Nicoderm Patch) 1 ea HS N/A 06/23/17 21:00 07/23/17 20:59 06/25/17 20:52 1 EA Potassium Chloride 20 meq/ Lactated Ringer's 1,010 ml @ 80 mls/hr [id number] IV 06/24/17 10:45 07/24/17 10:14 06/26/17 05:39 80 MLS/HR Fentanyl (Duragesic Patch) 25 mcg Q72H TD 06/25/17 11:00 07/09/17 10:59 06/25/17 11:07 25 MCG Fentanyl (Duragesic Patch) 12 mcg Q72H TD 06/25/17 11:00 07/09/17 10:59 06/25/17 11:08 12 MCG Miscellaneous (Fentanyl Patch Remove & Waste) 1 ea Q3D N/A 06/28/17 10:59 07/28/17 10:58 Miscellaneous Information (Check Fentanyl Patch Placement) 1 ea QS N/A 06/25/17 16:00 07/25/17 15:59 06/26/17 08:16 1 EA Hydromorphone HCl (Dilaudid Inj) 1 mg Q3H PRN IV 06/25/17 13:45 07/09/17 13:44 06/26/17 09:30 1 MG Warfarin Sodium (Coumadin Tab) 4 mg DAILY@16 PO 06/25/17 16:00 07/25/17 15:59 06/25/17 16:24 4 MG Acetaminophen/ Hydrocodone Bitart ([place] 5/325 Tab) 1 tab Q6H PRN PO 06/26/17 09:15 07/10/17 09:14 UNV Review of Systems Constitutional: Negative for fever, chills, sweats Eyes: Negative for eye pain, photophobia, drainage Ear, nose, mouth, throat: Negative for ear pain, nasal congestion, mouth lesions , change in voice Respiratory: Negative for wheezing, sputum production Cardiovascular: Negative for chest pain, palpitations, calf pain Gastrointestinal: Negative for abdominal pain, belching, bloating Genitourinary: Negative for dysuria, urinary incontinence, urinary urgency Musculoskeletal: Negative for deformities Integumentary: Negative for nail changes, skin yellowing, pruritus Neurological: Negative for abnormal speech, seizure type activity Physical Exam Height & Weight: Height 5 feet, 5.00 inches. Weight 85.300 (Kilograms) 188 (Pounds) Last Vital Signs Documentation Date Time Temp Pulse Resp B/P (MAP) Pulse Ox O2 Delivery O2 Flow Rate FiO2 06/26/17 07:59 36.7 88 16 114/80 (91) 91 Room Air 06/26/17 07:32 2.0 Exam: GENERAL: 61-year-old female who is awake, alert and oriented. Appears well developed. Is in no distress at the present time. He is sitting in the bedside chair PSYCHIATRIC: Demonstrates normal and clear sensorium. Mood and affect are appropriate. Short-term and long-term memory is intact. HEAD AND NECK: No obvious trauma. Demonstrates full range of motion of the cervical spine. No lymphadenopathy is noted. Trachea midline. No thyromegaly noted. Carotids with symmetrical upstroke without bruit. EARS, EYES AND NOSE: Mucous membranes pink and moist. No mucosal lesions noted. Tongue midline. NEUROLOGICAL: Cranial nerves II through XII grossly intact. No gross sensory or motor deficits noted in the upper or lower extremities. LUNGS: Clear to auscultation in all lung izquierdo. Normal chest excursion. BREASTS: Deferred. CARDIAC: Irregularly irregular ABDOMEN: Mild distention tender over the epigastrium EXTREMTIES: Peripheral pulses are symmetrical. Normal capillary refill. No peripheral edema noted. Gait was not observed Patient: JAYSHREE TORRES Address1: [address] [facility] Rec: [id number] Address2: Acct ID: [id number] [facility] Zip: [place] [id number] Date: 1955 Sex: F Room/Bed: Ref Phy: Michael Sepulveda M.D. SC: VERNELL Att Phy: Report #: [id number] Gabi Phy: Michael Sepulveda M.D. Test: APWO Admit Phy: It Disaster Recovery Manager: BOB Interpreting Phy: Haim Bal M.D. Diagnosis: AB PAIN Ordering Phy: Dmitriy Giordano M.D. Service Date: 06/13/17 Admit Date: 06/13/17 MNE: [id number] CONF: DICTATED BY: Haim Bal M.D.]] CC: Michael Sepulveda M.D. Newcomb, Brian D., M.D. Endcc: ] ABD/PELVIS NO IV OR ORAL CONT CT DOSE: 655.27 mGy.cm HISTORY: Pain eval for obs, pancreatitis, post-op comp TECHNIQUE: Multiaxial CT images of the abdomen and pelvis were performed without contrast. A dose lowering technique was utilized adhering to the principles of ALARA. COMPARISON STUDY: 06/04/2017 FINDINGS: Lung bases are generally clear. Liver and spleen remain unremarkable. Slight increase in edematous change of the pancreatic body and tail. Slight increase in peripancreatic infiltrative change. Multiple pancreatic calcifications unaltered from the prior study. Several reactive peripancreatic as well as mesenteric and retroperitoneal nodes. Mild infiltrative change of the perigastric region as compared to the prior study. The kidneys demonstrate a large cyst inferior pole right kidney. Bilateral nephrocalcinosis is unchanged. No evidence for hydronephrosis or obstructive nephrocalcinosis. 6 mm nonobstructing calcification within the left renal pelvis medially proximal to left ureteropelvic junction. The lower abdominal as well as pelvic bowel pattern is nonobstructive. Bladder is midline. There is no significant free fluid within the pelvic cul-de-sac. Patient is post prior cholecystectomy and hysterectomy. There is a small left anterior ventral hernia containing a short segment of colon. This is considered to be a nonobstructive finding. IMPRESSION: 1. Pancreatitis slightly increased in prominence compared to the prior study. 2. Peripancreatic infiltrative change has shown a slight degree of progression now with mild perigastric and left perinephric infiltrative change. 3. No evidence for abscess or collection. 4. 6 mm nonobstructing/minimally obstructing calculus within the left renal pelvis slightly proximal to the left ureteropelvic junction. Laboratory Laboratory Results (Last CBC): 06/26/17 06:[address] Findings Patient: JAYSHREE TORRES Address1: [address] [facility] Rec: [id number] Address2: Acct ID: [id number] [facility] Zip: [place] [address] Date: 1955 Sex: F Room/Bed: Ref Phy: Michael Sepulveda M.D. SC: GRACIE Mccauley Phy: Report #: [id number] Gabi Phy: Michael Sepulveda M.D. Test: APWO Admit Phy: It Disaster Recovery Manager: ISABEL Interpreting Phy: Ryan Helms M.D. Diagnosis: AB PAIN Ordering Phy: Simeon Skelton M.D. Service Date: 06/21/17 Admit Date: 06/21/17 MNE: [id number] CONF: DICTATED BY: Ryan Helms M.D.]] CC: Michael Sepulveda M.D. Lewis, Kyle D., M.D. Endcc: [~ rep ct add3]] CT SCAN OF THE ABDOMEN AND PELVIS WITHOUT IV CONTRAST CLINICAL HISTORY: Generalized abdominal pain. Obstipation. COMPARISON STUDY: Recent prior abdominal CT scans dated 06/13/2017 and 06/04/2017. TECHNIQUE: CT scan of the abdomen and pelvis is performed from the lung bases to the proximal femora. Images are reviewed in the axial, sagittal, and coronal planes. IV contrast was not administered for this examination as per the referring clinician. Note that the examination was performed and significantly suboptimal fashion without oral and IV contrast. A dose lowering technique was utilized adhering to the principles of ALARA. CT DOSE: 627.70 mGy.cm FINDINGS: Lung bases: The heart is top normal in size noting trace pericardial fluid. There are coronary artery calcifications. The lung bases are clear noting minimal dependent atelectasis. Liver: The unenhanced liver is enlarged, measuring over 18 cm in length. The liver demonstrates diffusely diminished attenuation consistent with hepatic steatosis. There is no intrahepatic biliary ductal dilatation. Gallbladder: Surgically absent. Spleen: Normal in size and attenuation. Pancreas: The unenhanced pancreas is moderately atrophic. Findings are consistent with previous surgical resection of the pancreatic head. Peripancreatic stranding and fluid are again seen. This has modestly increased from 06/13/2017. No organized peripancreatic fluid collection is seen on this unenhanced examination. Adrenal glands: Unremarkable. Kidneys: The unenhanced kidneys are normal in size. Again seen is a 9 mm obstructing calculus in the left proximal ureter at the level of L3-L4. This is seen on image #191, and the stone causes mild left-sided hydronephrosis. No additional left-sided renal calculi are identified. There are least 3 small nonobstructing right renal calculi measuring up to 3 mm. A 7.5 cm cyst arises from the lower pole of the right kidney. Abdominal vasculature: There is advanced atherosclerotic calcification and mild ectasia of the abdominal aorta. Stomach and bowel: There is evidence of distal gastrectomy with gastrojejunostomy. There are postoperative changes from left colon resection with colocolonic anastomosis. A small bowel anastomosis is also seen in the pelvis. No bowel obstruction is identified. Colonic interposition is incidentally noted. The appendix is not visualized. Peritoneum: There is no intraperitoneal free air or abdominal ascites. There is a small fat-containing hernia in the left ventral pelvis seen on image #282, possibly incisional. Lymphadenopathy: None. Pelvic viscera: The bladder is normal as visualized. The uterus is surgically absent. No adnexal lesion is seen. Skeletal structures: The skeletal structures are osteopenic. There is mild lumbosacral spondylosis. No lytic or blastic lesions are seen. IMPRESSION: 1. Suboptimal examination without oral and IV contrast. 2. Extensive postoperative changes are identified including previous resection of the pancreatic head, cholecystectomy, hysterectomy, and distal gastrectomy with gastrojejunostomy. A small bowel anastomosis is seen in the pelvis and there is evidence of previous sigmoid colon resection. 3. There is evidence of acute pancreatitis. This has modestly worsened as compared to the 06/13/2017 examination. No organized peripancreatic fluid collection is identified. 4. A 9 mm obstructing calculus is again seen in the left proximal ureter. This causes mild hydronephrosis. Follow-up with urology is recommended. 5. Hepatomegaly and hepatic steatosis. 6. Nonobstructing right renal calculi are noted. 7. Additional findings as above. Past Records Previous Records: none available for review Assessment 1. Mid epigastric/left upper quadrant abdominal pain with history of acute pancreatitis/recurrent pancreatitis/pancreatic cancer status post Whipple procedure 2013 2. Atrial fibrillation on chronic anticoagulation therapy with Coumadin 3. Insulin-dependent diabetes mellitus 4. Renal stone Recommendations 1. Continue with fentanyl patch and will prescribe [place] 5/325 mg 1 p.o. every 6 as needed pain. 2. We briefly discussed pursuing celiac plexus block with neurolysis but will hold pending definitive GI evaluation at [facility] with possible ERCP. I am hesitant to perform form a neurolytic celiac plexus block due to the risk of deafferentation pain if there is a possible anatomic intervention that may be performed. Consider transfer to [facility] if she requires more definitive care at that facility. R 3. Maintain gabapentin at current dosing. 4. Please call with any questions, nothing further to add until definitive GI workup has been completed.
--- NOTE | 2017-06-26 09:57 | Gastroenterology Progress Note ---
Progress Note Date of Service: Jun 26, 2017 Subjective Pt evaluation today including: conversation w/ patient, physical exam Pt seen and evaluated, chart reviewed. Acute on chronic panc. Diet advanced and tolerated. Notes her pain is at baseline. She tells me she always has abdominal pain, nausea. Her abdominal symptoms now are no different. Does continue to have a lot of back pain. No fever, chills, CP, SOB. Review of Systems Constitutional: No fever, No chills, No weight loss, No weakness Respiratory: No cough, No shortness of breath Cardiac: No chest pain, No edema Abdomen: + pain, + nausea, No vomiting, No diarrhea, No constipation, No GI bleeding Skin: No rash, No itch Medications Current Inpatient Medications Medications (Trade) Dose Ordered Sig/August Route Start Time Stop Time Status Last Admin Dose Admin Ciprofloxacin/ Dextrose 400 mg/ Prmx 200 ml @ 100 mls/hr Q12 IV 06/21/17 21:00 07/01/17 20:59 06/26/17 09:09 100 MLS/HR Albuterol (Ventolin Hfa Inhaler) 2 puffs QID PRN INH 06/21/17 20:15 07/21/17 20:14 Insulin Aspart (novoLOG ASPART) SLIDING SCALE If C... ACHS SC 06/21/17 21:00 07/21/17 20:59 06/26/17 08:30 4 UNITS Insulin Glargine (Lantus Solostar Pen) 22 units HS SC 06/21/17 21:00 07/21/17 20:59 06/25/17 21:09 22 UNITS Promethazine HCl 25 mg/Sodium Chloride 51 ml @ 204 mls/hr Q6H PRN IV 06/21/17 20:15 07/21/17 20:14 06/26/17 01:24 204 MLS/HR Ondansetron HCl (Zofran Odt) 4 mg Q8H PRN PO 06/21/17 23:00 07/21/17 22:59 06/25/17 20:07 4 MG Hydromorphone HCl (Dilaudid Inj) 0.5 mg Q2H PRN IV 06/22/17 02:00 07/05/17 18:59 06/24/17 19:02 0.5 MG Allopurinol (Zyloprim Tab) 100 mg DAILY PO 06/23/17 09:00 07/23/17 08:59 06/26/17 09:12 100 MG Citalopram Hydrobromide (celeXA TAB) 20 mg DAILY PO 06/23/17 09:00 07/23/17 08:59 06/26/17 09:09 20 MG Colestipol HCl (Colestid Tab) 2 gm BID@1000,2200 PO 06/22/17 22:00 07/22/17 21:59 06/26/17 09:10 2 GM Digoxin (Lanoxin Tab) 0.125 mg DAILY@1600 PO 06/22/17 16:00 07/22/17 15:59 06/25/17 16:23 0.125 MG Diltiazem HCl (Cardizem Cd Cap) 120 mg BID PO 06/22/17 21:00 07/22/17 20:59 06/26/17 09:12 120 MG Docusate Sodium (coLACE CAP) 100 mg BID PO 06/22/17 21:00 07/22/17 20:59 06/26/17 09:12 100 MG Fenofibrate (Tricor Tab) 145 mg QAM PO 06/23/17 09:00 07/23/17 08:59 06/26/17 09:11 145 MG Gabapentin (Neurontin Cap) 100 mg TID PO 06/22/17 21:00 07/22/17 20:59 06/26/17 09:11 100 MG Magnesium Oxide (Mag-Ox Tab) 400 mg BID PO 06/22/17 21:00 07/22/17 20:59 06/26/17 09:12 400 MG Metoprolol Succinate (Toprol Xl Tab) 25 mg BID PO 06/22/17 21:00 07/22/17 20:59 06/26/17 09:12 25 MG Pantoprazole Sodium (Protonix Tab) 40 mg DAILY PO 06/23/17 09:00 07/23/17 08:59 06/26/17 09:11 40 MG Sucralfate (Carafate Tab) 1 gm ACHS PO 06/22/17 16:15 07/22/17 16:14 06/26/17 08:16 1 GM Trazodone HCl (Desyrel Tab) 150 mg HS PO 06/22/17 21:00 5/5/18 20:59 06/25/17 20:54 150 MG Miscellaneous Information (Order Awaiting Action) 1 ea DAILY@1700 PO 06/22/17 17:00 07/22/17 16:59 Miscellaneous Information (Order Awaiting Action) 1 ea BID17 PO 06/22/17 17:00 07/22/17 16:59 Amylase/Lipase/ Protease (Pancreaze (Lipase 10,500U) Cap) 2 cap TIDM PO 06/22/17 16:45 07/22/17 16:44 06/26/17 08:17 2 CAP Polyethylene (Miralax Powder Packet) 17 gm DAILY PO 06/23/17 09:00 07/23/17 08:59 06/23/17 08:19 17 GM Phenazopyridine HCl (Pyridium Tab) 200 mg TID PO 06/23/17 14:00 07/23/17 13:59 06/26/17 09:11 200 MG Tamsulosin HCl (Flomax Cap) 0.4 mg HS PO 06/23/17 21:00 07/23/17 20:59 06/25/17 20:55 0.4 MG Oxybutynin Chloride (Ditropan Tab) 5 mg BID PO 06/23/17 21:00 07/23/17 20:59 06/26/17 09:11 5 MG Enoxaparin Sodium (Lovenox Inj) 90 mg Q12H SQ 06/23/17 12:00 07/23/17 11:59 06/25/17 23:41 90 MG Nicotine (Nicoderm Cq 14MG Patch) 1 patch QAM TD 06/24/17 09:00 07/24/17 08:59 06/26/17 09:10 1 PATCH Miscellaneous (Remove Nicoderm Patch) 1 ea HS N/A 06/23/17 21:00 07/23/17 20:59 06/25/17 20:52 1 EA Potassium Chloride 20 meq/ Lactated Ringer's 1,010 ml @ 80 mls/hr [id number] IV 06/24/17 10:45 07/24/17 10:14 06/26/17 05:39 80 MLS/HR Fentanyl (Duragesic Patch) 25 mcg Q72H TD 06/25/17 11:00 07/09/17 10:59 06/25/17 11:07 25 MCG Fentanyl (Duragesic Patch) 12 mcg Q72H TD 06/25/17 11:00 07/09/17 10:59 06/25/17 11:08 12 MCG Miscellaneous (Fentanyl Patch Remove & Waste) 1 ea Q3D N/A 06/28/17 10:59 07/28/17 10:58 Miscellaneous Information (Check Fentanyl Patch Placement) 1 ea QS N/A 06/25/17 16:00 07/25/17 15:59 06/26/17 08:16 1 EA Hydromorphone HCl (Dilaudid Inj) 1 mg Q3H PRN IV 06/25/17 13:45 07/09/17 13:44 06/26/17 09:30 1 MG Warfarin Sodium (Coumadin Tab) 4 mg DAILY@16 PO 06/25/17 16:00 07/25/17 15:59 06/25/17 16:24 4 MG Acetaminophen/ Hydrocodone Bitart ([place] 5/325 Tab) 1 tab Q6H PRN PO 06/26/17 09:15 07/10/17 09:14 Magnesium Sulfate 1 gm/Prmx 100 ml @ 100 mls/hr NOW ONCE IV 06/26/17 10:00 06/26/17 10:59 Potassium Chloride (Klor-Con M10) 40 meq NOW ONCE PO 06/26/17 10:00 06/26/17 10:01 Objective Vital Signs Date Time Temp Pulse Resp B/P (MAP) Pulse Ox O2 Delivery O2 Flow Rate FiO2 06/26/17 07:59 36.7 88 16 114/80 (91) 91 Room Air 06/26/17 07:32 Oxymask 2.0 06/26/17 07:14 36.8 80 18 125/79 (94) 92 Oxymask 2.0 06/25/17 23:45 94 Oxymask 2.0 06/25/17 23:01 37.0 68 16 108/71 (83) 93 Oxymask 3.0 06/25/17 20:58 85 114/68 (83) 06/25/17 16:23 76 06/25/17 15:30 94 Oxymask 2.0 06/25/17 15:06 37.1 69 18 107/71 (83) 91 Nasal Cannula 3.0 Physical Exam General Appearance: no apparent distress Eyes: PERRL ENT: hearing grossly normal Neck: supple, trachea midline Respiratory/Chest: lungs clear, normal breath sounds Cardiovascular: regular rate, rhythm Abdomen: soft, no organomegaly, no pulsatile mass, + tenderness (left sided abd pain on palpation, no rebound or guarding) Neurologic/Psych: alert, normal mood/affect, oriented x 3 Skin: normal color Laboratory Results Last 24 Hours Test 06/25/17 11:52 06/25/17 12:14 06/25/17 17:05 06/25/17 20:37 Bedside Glucose 144 mg/dl 133 mg/dl 173 mg/dl 172 mg/dl Test 06/26/17 06:06 06/26/17 08:07 White Blood Count 4.22 K/uL Red Blood Count 3.88 M/uL Hemoglobin 11.2 g/dL Hematocrit 34.3 % Mean Corpuscular Volume 88.4 fL Mean Corpuscular Hemoglobin 28.9 pg Mean Corpuscular Hemoglobin Concent 32.7 g/dl RDW Standard Deviation 43.0 fL RDW Coefficient of Variation 13.4 % Platelet Count 166 K/uL Mean Platelet Volume 9.9 fL Prothrombin Time 11.2 SECONDS Prothromb Time International Ratio 1.1 Sodium Level 143 mmol/L Potassium Level 3.4 mmol/L Chloride Level 108 mmol/L Carbon Dioxide Level 29 mmol/L Anion Gap 6.0 mmol/L Blood Urea Nitrogen 3 mg/dl Creatinine 0.49 mg/dl Est Creatinine Clear Calc Drug Dose 128.4 ml/min Estimated GFR () 121.0 Estimated GFR (Non- 104.4 BUN/Creatinine Ratio 5.1 Random Glucose 134 mg/dl Calcium Level 10.2 mg/dl Magnesium Level 1.7 mg/dl Bedside Glucose 139 mg/dl Assessment and Plan Ms. Torres is a 61 yr old female with acute on chronic pancreatitis S/P Whipple procedure in 2013 for pancreatic cancer. Clinically improving, tolerating diet and notes her abdominal pain and nausea are now back to baseline. She tells me she will not get MRCP as she believes she was told in the past her aneurysm clips were not MR compatible. I asked if I could clarify this, she tells me she does not want MR either way. - Low fat diet as tolerated - Follow up with Dr. Murguia - Follow up with [facility] - GI to sign off. Please call with any questions I performed a history and physical examination of the patient. I have discussed the patient's case, impression and plan with YARED Polanco. Her note reflects my findings and plan. Doing well on diet. Song Goncalves MD
[2017-06-26] MEDS ORDERED: POTASSIUM CHLORIDE 10 MEQ TABCR PO ONE (10:00)
[2017-06-26] MEDS ORDERED: MAGNESIUM SULFATE 1GM / D5W 1 GM in PREMIXED IN D5W 100 ML IV ONE (10:00)
[2017-06-26] MEDS: ONDANSETRON 4MG OD TAB PO PRN ×2 (10:22→23:58)
[2017-06-26] MEDS: ENOXAPARIN 100 MG/1ML SYR SQ SCH ×2 (11:59→23:58)
--- NOTE | 2017-06-26 14:03 | Hospitalist Progress Note ---
Hospitalist Progress Note Date of Service Jun 26, 2017. (Gabriella Healy .YARED) Subjective Pt evaluation today including: conversation w/ patient, physical exam, chart review, lab review, review of inpatient medication list Voiding: no voiding problems Ms. Torres continues to have pain in her left abdomen and flank. She is able to eat and requests advanced diet. She says she is only nauseas when her pain is out of control ROS Constitutional: no chills, aches, sweats or fever Respiratory: no sob,cough, sputum, or wheezing Cardiac: no chest pain, palpitations, edema, orthopnea or lightheadedness GI: see HPI : no dysuria or hesitancy Extremities: no joint pain or weakness Skin: no rash All other systems reviewed and negative (Gabriella Healy CRNP) Medications Medications Administered Medications (Trade) Dose Ordered Sig/August Route Start Time Stop Time Status Last Admin Dose Admin Sodium Chloride 1,000 ml @ 999 mls/hr Q1H1M STAT IV 06/21/17 15:39 06/21/17 16:39 DC 06/21/17 15:58 999 MLS/HR Metoclopramide HCl (Reglan Inj) 10 mg NOW STAT IV. 06/21/17 15:39 06/21/17 15:42 DC 06/21/17 15:58 10 MG Hydromorphone HCl (Dilaudid Inj) 1 mg NOW STAT IV 06/21/17 15:39 06/21/17 15:42 DC 06/21/17 15:58 1 MG Sodium Chloride 500 ml @ 999 mls/hr Q31M STAT IV 06/21/17 17:00 06/21/17 17:30 DC 06/21/17 17:00 999 MLS/HR Miscellaneous Information (Nursing Verbal Med Order) 1 ea ONE ONCE N/A 06/21/17 18:15 06/21/17 18:16 DC 06/21/17 18:15 1 EA Promethazine HCl 25 mg/Sodium Chloride 51 ml @ 204 mls/hr TODAY@1815 IV 06/21/17 18:15 06/21/17 19:00 DC 06/21/17 18:37 204 MLS/HR Hydromorphone HCl (Dilaudid Inj) 0.5 mg ONE STAT IV 06/21/17 18:39 06/21/17 18:40 DC 06/21/17 18:39 0.5 MG Hydromorphone HCl (Dilaudid Inj) 0.5 mg STK-MED ONCE .ROUTE 06/21/17 18:34 06/21/17 18:35 DC 06/21/17 18:38 0.5 MG Sodium Chloride 1,000 ml @ 100 mls/hr Q10H IV 06/21/17 20:40 06/24/17 10:15 DC 06/24/17 09:34 100 MLS/HR Hydromorphone HCl (Dilaudid Inj) 0.3 mg Q3H PRN IV 06/21/17 19:00 06/22/17 01:58 DC 06/22/17 00:37 0.3 MG Diltiazem HCl 125 mg/Dextrose 125 ml @ 0 mls/hr Q0M PRN IV 06/21/17 19:45 06/22/17 20:00 DC 06/22/17 09:15 10 MLS/HR Ciprofloxacin/ Dextrose 400 mg/ Prmx 200 ml @ 100 mls/hr Q12 IV 06/21/17 21:00 07/01/17 20:59 06/26/17 09:09 100 MLS/HR Insulin Aspart (novoLOG ASPART) SLIDING SCALE If C... ACHS SC 06/21/17 21:00 07/21/17 20:59 06/26/17 13:07 5 UNITS Insulin Glargine (Lantus Solostar Pen) 22 units HS SC 06/21/17 21:00 07/21/17 20:59 06/25/17 21:09 22 UNITS Magnesium Sulfate 1 gm/Prmx 100 ml @ 100 mls/hr ONE ONCE IV 06/21/17 21:00 06/21/17 21:59 DC 06/21/17 21:25 100 MLS/HR Promethazine HCl 25 mg/Sodium Chloride 51 ml @ 204 mls/hr Q6H PRN IV 06/21/17 20:15 07/21/17 20:14 06/26/17 01:24 204 MLS/HR Pantoprazole Sodium 40 mg/ Syringe 10 ml @ 5 mls/min DAILY@11 IV 06/22/17 11:00 06/22/17 15:22 DC 06/22/17 10:46 5 MLS/MIN Phytonadione 5 mg/ Sodium Chloride 50.5 ml @ 101 mls/hr ONE ONCE IV 06/21/17 20:45 06/21/17 21:14 DC 06/21/17 20:55 101 MLS/HR Ondansetron HCl (Zofran Odt) 4 mg Q8H PRN PO 06/21/17 23:00 07/21/17 22:59 06/26/17 10:22 4 MG Miscellaneous Information (Check Fentanyl Patch Placement) 1 ea QS N/A 06/22/17 00:00 06/22/17 23:36 DC 06/22/17 16:02 1 EA Hydromorphone HCl (Dilaudid Inj) 0.5 mg Q2H PRN IV 06/22/17 02:00 07/05/17 18:59 06/24/17 19:02 0.5 MG Hydromorphone HCl (Dilaudid Inj) 0.5 mg NOW STAT IV 06/22/17 01:56 06/22/17 02:00 DC 06/22/17 02:47 0.5 MG Magnesium Sulfate 1 gm/Prmx 100 ml @ 100 mls/hr TODAY@1045 IV 06/22/17 10:45 06/22/17 12:00 DC 06/22/17 10:40 100 MLS/HR Hydromorphone HCl (Dilaudid Health Service Worker) 25 mg PRN PRN IV 06/22/17 11:45 06/25/17 13:38 DC 06/25/17 14:57 25 MG Sodium Chloride 1,000 ml @ 15 mls/hr Q24H IV 06/22/17 11:34 06/25/17 13:38 DC 06/22/17 15:26 15 MLS/HR Allopurinol (Zyloprim Tab) 100 mg DAILY PO 06/23/17 09:00 07/23/17 08:59 06/26/17 09:12 100 MG Citalopram Hydrobromide (celeXA TAB) 20 mg DAILY PO 06/23/17 09:00 07/23/17 08:59 06/26/17 09:09 20 MG Colestipol HCl (Colestid Tab) 2 gm BID@1000,2200 PO 06/22/17 22:00 07/22/17 21:59 06/26/17 09:10 2 GM Digoxin (Lanoxin Tab) 0.125 mg DAILY@1600 PO 06/22/17 16:00 07/22/17 15:59 06/25/17 16:23 0.125 MG Diltiazem HCl (Cardizem Cd Cap) 120 mg BID PO 06/22/17 21:00 07/22/17 20:59 06/26/17 09:12 120 MG Docusate Sodium (coLACE CAP) 100 mg BID PO 06/22/17 21:00 07/22/17 20:59 06/26/17 09:12 100 MG Fenofibrate (Tricor Tab) 145 mg QAM PO 06/23/17 09:00 07/23/17 08:59 06/26/17 09:11 145 MG Gabapentin (Neurontin Cap) 100 mg TID PO 06/22/17 21:00 07/22/17 20:59 06/26/17 09:11 100 MG Magnesium Oxide (Mag-Ox Tab) 400 mg BID PO 06/22/17 21:00 07/22/17 20:59 06/26/17 09:12 400 MG Metoprolol Succinate (Toprol Xl Tab) 25 mg BID PO 06/22/17 21:00 07/22/17 20:59 06/26/17 09:12 25 MG Pantoprazole Sodium (Protonix Tab) 40 mg DAILY PO 06/23/17 09:00 07/23/17 08:59 06/26/17 09:11 40 MG Sucralfate (Carafate Tab) 1 gm ACHS PO 06/22/17 16:15 07/22/17 16:14 06/26/17 11:59 1 GM Trazodone HCl (Desyrel Tab) 150 mg HS PO 06/22/17 21:00 07/22/17 20:59 06/25/17 20:54 150 MG Warfarin Sodium (Coumadin Tab) 4 mg DAILY@1600 PO 06/22/17 16:00 06/23/17 10:46 DC 06/22/17 17:10 4 MG Amylase/Lipase/ Protease (Pancreaze (Lipase 10,500U) Cap) 2 cap TIDM PO 06/22/17 16:45 07/22/17 16:44 06/26/17 11:59 2 CAP Polyethylene (Miralax Powder Packet) 17 gm DAILY PO 06/23/17 09:00 07/23/17 08:59 06/23/17 08:19 17 GM Miscellaneous (Stop Order) 1 ea ONE ONCE N/A 06/22/17 23:45 06/22/17 23:46 DC 06/22/17 23:54 1 EA Magnesium Sulfate 1 gm/Prmx 100 ml @ 100 mls/hr 1000 ONCE IV 06/23/17 10:00 06/23/17 10:59 DC 06/23/17 10:36 100 MLS/HR Phenazopyridine HCl (Pyridium Tab) 200 mg TID PO 06/23/17 14:00 07/23/17 13:59 06/26/17 09:11 200 MG Tamsulosin HCl (Flomax Cap) 0.4 mg HS PO 06/23/17 21:00 07/23/17 20:59 06/25/17 20:55 0.4 MG Oxybutynin Chloride (Ditropan Tab) 5 mg BID PO 06/23/17 21:00 07/23/17 20:59 06/26/17 09:11 5 MG Enoxaparin Sodium (Lovenox Inj) 90 mg Q12H SQ 06/23/17 12:00 07/23/17 11:59 06/26/17 11:59 90 MG Nicotine (Nicoderm Cq 14MG Patch) 1 patch QAM TD 06/24/17 09:00 07/24/17 08:59 06/26/17 09:10 1 PATCH Miscellaneous (Remove Nicoderm Patch) 1 ea HS N/A 06/23/17 21:00 07/23/17 20:59 06/25/17 20:52 1 EA Potassium Chloride 20 meq/ Lactated Ringer's 1,010 ml @ 80 mls/hr [id number] IV 06/24/17 10:45 07/24/17 10:14 06/26/17 05:39 80 MLS/HR Magnesium Sulfate 1 gm/Prmx 100 ml @ 100 mls/hr NOW ONCE IV 06/24/17 10:30 06/24/17 11:29 DC 06/24/17 11:04 100 MLS/HR Magnesium Sulfate 1 gm/Prmx 100 ml @ 100 mls/hr NOW STAT IV 06/25/17 08:59 06/25/17 09:58 DC 06/25/17 09:50 100 MLS/HR Fentanyl (Duragesic Patch) 25 mcg Q72H TD 06/25/17 11:00 07/09/17 10:59 06/25/17 11:07 25 MCG Fentanyl (Duragesic Patch) 12 mcg Q72H TD 06/25/17 11:00 07/09/17 10:59 06/25/17 11:08 12 MCG Miscellaneous Information (Check Fentanyl Patch Placement) 1 ea QS N/A 06/25/17 16:00 07/25/17 15:59 06/26/17 08:16 1 EA Hydromorphone HCl (Dilaudid Inj) 1 mg Q3H PRN IV 06/25/17 13:45 07/09/17 13:44 06/26/17 09:30 1 MG Warfarin Sodium (Coumadin Tab) 4 mg DAILY@16 PO 06/25/17 16:00 07/25/17 15:59 06/25/17 16:24 4 MG Magnesium Sulfate 1 gm/Prmx 100 ml @ 100 mls/hr NOW ONCE IV 06/26/17 10:00 06/26/17 10:59 DC 06/26/17 10:20 100 MLS/HR Potassium Chloride (Klor-Con M10) 40 meq NOW ONCE PO 06/26/17 10:00 06/26/17 10:01 DC 06/26/17 10:20 40 MEQ (Gabriella Healy, YARED) Objective Vital Signs Date Time Temp Pulse Resp B/P (MAP) Pulse Ox O2 Delivery O2 Flow Rate FiO2 06/26/17 10:07 91 Room Air 06/26/17 07:59 36.7 88 16 114/80 (91) 91 Room Air 06/26/17 07:32 Oxymask 2.0 06/26/17 07:14 36.8 80 18 125/79 (94) 92 Oxymask 2.0 06/25/17 23:45 94 Oxymask 2.0 06/25/17 23:01 37.0 68 16 108/71 (83) 93 Oxymask 3.0 06/25/17 20:58 85 114/68 (83) 06/25/17 16:23 76 06/25/17 15:30 94 Oxymask 2.0 06/25/17 15:06 37.1 69 18 107/71 (83) 91 Nasal Cannula 3.0 (Gabriella Healy CRNP) Physical Exam Notes: General: no distress Eyes: normal inspection, PERLL Respiratory: chest non tender, clear to auscultation, normal breath sounds, no respiratory distress, no accessory muscle use Cardiac: regular rate and rhythm, no rub or gallop, no murmur, no edema, no jvd GI/: active bowel sounds, left upper abdominal tenderness soft, non distended Extremities: normal range of motion, normal strength, non tender Neuro/Psych: alert and oriented x 3, normal mood and affect Skin: normal color, dry (Gabriella Healy CRNP) Laboratory Results Last 24 Hours Test 06/25/17 17:05 06/25/17 20:37 06/26/17 06:06 06/26/17 08:07 Bedside Glucose 173 mg/dl 172 mg/dl 139 mg/dl White Blood Count 4.22 K/uL Red Blood Count 3.88 M/uL Hemoglobin 11.2 g/dL Hematocrit 34.3 % Mean Corpuscular Volume 88.4 fL Mean Corpuscular Hemoglobin 28.9 pg Mean Corpuscular Hemoglobin Concent 32.7 g/dl RDW Standard Deviation 43.0 fL RDW Coefficient of Variation 13.4 % Platelet Count 166 K/uL Mean Platelet Volume 9.9 fL Prothrombin Time 11.2 SECONDS Prothromb Time International Ratio 1.1 Sodium Level 143 mmol/L Potassium Level 3.4 mmol/L Chloride Level 108 mmol/L Carbon Dioxide Level 29 mmol/L Anion Gap 6.0 mmol/L Blood Urea Nitrogen 3 mg/dl Creatinine 0.49 mg/dl Est Creatinine Clear Calc Drug Dose 128.4 ml/min Estimated GFR () 121.0 Estimated GFR (Non- 104.4 BUN/Creatinine Ratio 5.1 Random Glucose 134 mg/dl Calcium Level 10.2 mg/dl Magnesium Level 1.7 mg/dl (Gabriella Healy CRNP) Assessment and Plan 61 y/o female with a history of HTN, HLD, a-fib, DM II, neuropathy, pancreatic cancer s/p Whipple procedure, chronic pancreatitis, depression, gout, and GERD who presents with abdominal pain, nausea, and vomiting. The patient was found to have acute on chronic pancreatitis, a-fib with RVR, and left obstructing ureteral stone with hydronephrosis. 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 - three weeks ago she had a celiac block, only lasted a few days - was discharged on Fentanyl patch and Nucynta, however, her co-pay was too high for Nucynta, could not afford it - pain management consulted MRCP cannot be done because she has coils in brain from aneurysm -- discussed with patient, coils were 20 years ago, they inquired several years ago and there was no record as to what material, could not have MRI - ultimately needs evaluated with ERCP at [facility] - will need to decide if we should transfer or discharge when stable to go outpatient - advance to low fat diet per GI recommendation - LFTs, lipase tomorrow am A-fib with RVR--resolved with pain control and fluids and resuming medications -Continue digoxin 125 mcg PO qd, diltiazem 120 mg PO BID, Toprol XL 25 mg PO BID, rates are controlled again today - on Lovenox, hold Coumadin for future ERCP Hypomagnesemia--ongoing despite replacement - Mag 1.7 again on 06/26 - Mag sulfate 1 gm IV qd, continue mag oxide 400 mg PO BID - Continue to monitor - Hypokalemia: 3.4 again today, she is on LR + 20mEq potassium, po replacement HTN, HLD--stable -Continue metoprolol and diltiazem as above, Welchol 625 mg PO qd, Colestid 2 gm PO BID, fenofibrate 145 mg PO qd DM II--stable -Home Lantus reduced to 22 units SC qd due to NPO, can increase back to home dose if having adequate PO intake -Insulin sliding scale -Check BSGs q ac and qhs -HgbA1c 7.9 on 06/23 Neuropathy -Continue gabapentin 100 mg PO TID Depression/insomnia -Continue citalopram 20 mg PO qd and trazodone 150 mg PO hs Gout -Continue allopurinol 100 mg PO qd GERD -D/C IV Protonix, convert to PO DVT prophylaxis -Therapeutic Lovenox -SCDs Code Status -Level I, FULL RESUSCITATION STATUS Discharge planning: home (Gabriella Healy CRNP) Supervising Note Dr. Rust I performed a history and physical examination on the patient. I reviewed above note and agree with it. I discussed plan with APC and patient. During my face to face encounter with the patient, I answered all of the patient's questions. I discussed care with tertiary center. Spent 120 minutes on the care of this patient updating patient and physicians from tertiary center. (Alin Rust M.D.)
[2017-06-26] MEDS: DIGOXIN 0.125 MG TAB PO SCH (15:56)
--- NOTE | 2017-06-26 16:37 | Discharge Instructions ---
Discharge Instructions Date of Service Jun 26, 2017. Admission Reason for Admission: Kidney Stone Discharge Discharge Diagnosis / Problem: Kidney stone, acute on chronic pancreatitis Discharge Goals Goal(s): Improve disease control Activity Recommendations Activity Level: Assistance Required . Additional Information Patient informed of condition: Yes Advance Directives: Yes DNR: No Level of Care: Other Communicable Disease: No Prognosis: Stable Schaffer Catheter: No Current Hospital Diet Patient's current hospital diet: Diabetes Type 2 Diet, Low Fat Diet Discharge Diet Recommended Diet: Diabetes Type 2 Diet, Low Fat Diet Procedures Procedures Performed: Cystoscopy, insertion left ureteral stent KUB CT abd Pending Studies Studies pending at discharge: no Physician Orders On Transfer POLST Discussion: without POLST completion Laboratory Results Hemoglobin A1c Test 06/23/17 05:18 Range/Units Estimated Average Glucose 180 mg/dl Hemoglobin A1c 7.9 H 4.5-5.6 % Medical Emergencies . Who to Call and When: Medical Emergencies: If at any time you feel your situation is an emergency, please call 911 immediately. . Non-Emergent Contact Non-Emergency issues call your: Primary Care Provider Call Non-Emergent contact if: you have any medication questions . . "Provider Documentation" section prepared by Gabriella Healy. . Core Measure Problem Core Measures: None
--- NOTE | 2017-06-26 16:49 | Discharge Summary ---
Discharge Summary Date of Service Jun 26, 2017. Discharge Summary Admission Date: Jun 21, 2017 at 18:48 Discharge Date: Jun 26, 2017 Discharge Disposition: Acute care facility Principal Diagnosis: Acute on Chronic pancreatitis, kidney stone Problems/Secondary Diagnoses: A-fib with RVR, Hypomagnesemia, Hypokalemia, DM II--stable, Neuropathy, Depression/insomnia, Gout, GERD Immunizations: Have You Had Influenza Vaccine: No History of Tetanus Vaccine?: No History of Pneumococcal: No History of Hepatitis B Vaccine: No Procedures: KUB CLINICAL HISTORY: Nephrolithiasis. Ureteral stent placement. FINDINGS: An AP supine abdominal radiograph is compared to study dated 04/15/2016 and correlated with abdominal CT dated 06/21/2017. There is a nonobstructed abdominal bowel gas pattern. Suture material projects over the left mid abdomen and the pelvis. A left ureteral stent is in place. No calcification is seen projecting along the course of the stent. An 8 mm calculus projects over the lower pole of the left kidney. No calcifications are clearly seen projecting over the right kidney or along the course of the right ureter. Numerous small pelvic phleboliths are observed. IMPRESSION: 1. A left ureteral stent has been placed. No calcifications are seen projecting along the course of the stent. 2. An 8 mm calcification projects over the lower pole of the left kidney. Electronically signed by: Ryan Helms M.D. 06/23/2017 11:54 AM KUB CLINICAL HISTORY: LT CYSTO/STENT COMPARISON STUDY: CT of the abdomen and pelvis June 21, 2017. Fluoroscopy time: 5.9 seconds. FINDINGS: 2 fluoroscopic images from a left retrograde exam were submitted for interpretation. These images demonstrate placement of a left ureteral stent. Stent appears appropriately positioned. IMPRESSION: Fluoroscopic images from left retrograde exam with ureteral stent insertion. Electronically signed by: Baron Garcia M.D. 06/22/2017 2:[address] SCAN OF THE ABDOMEN AND PELVIS WITHOUT IV CONTRAST CLINICAL HISTORY: Generalized abdominal pain. Obstipation. COMPARISON STUDY: Recent prior abdominal CT scans dated 06/13/2017 and 06/04/2017. TECHNIQUE: CT scan of the abdomen and pelvis is performed from the lung bases to the proximal femora. Images are reviewed in the axial, sagittal, and coronal planes. IV contrast was not administered for this examination as per the referring clinician. Note that the examination was performed and significantly suboptimal fashion without oral and IV contrast. A dose lowering technique was utilized adhering to the principles of ALARA. CT DOSE: 627.70 mGy.cm FINDINGS: Lung bases: The heart is top normal in size noting trace pericardial fluid. There are coronary artery calcifications. The lung bases are clear noting minimal dependent atelectasis. Liver: The unenhanced liver is enlarged, measuring over 18 cm in length. The liver demonstrates diffusely diminished attenuation consistent with hepatic steatosis. There is no intrahepatic biliary ductal dilatation. Gallbladder: Surgically absent. Spleen: Normal in size and attenuation. Pancreas: The unenhanced pancreas is moderately atrophic. Findings are consistent with previous surgical resection of the pancreatic head. Peripancreatic stranding and fluid are again seen. This has modestly increased from 06/13/2017. No organized peripancreatic fluid collection is seen on this unenhanced examination. Adrenal glands: Unremarkable. Kidneys: The unenhanced kidneys are normal in size. Again seen is a 9 mm obstructing calculus in the left proximal ureter at the level of L3-L4. This is seen on image #191, and the stone causes mild left-sided hydronephrosis. No additional left-sided renal calculi are identified. There are least 3 small nonobstructing right renal calculi measuring up to 3 mm. A 7.5 cm cyst arises from the lower pole of the right kidney. Abdominal vasculature: There is advanced atherosclerotic calcification and mild ectasia of the abdominal aorta. Stomach and bowel: There is evidence of distal gastrectomy with gastrojejunostomy. There are postoperative changes from left colon resection with colocolonic anastomosis. A small bowel anastomosis is also seen in the pelvis. No bowel obstruction is identified. Colonic interposition is incidentally noted. The appendix is not visualized. Peritoneum: There is no intraperitoneal free air or abdominal ascites. There is a small fat-containing hernia in the left ventral pelvis seen on image #282, possibly incisional. Lymphadenopathy: None. Pelvic viscera: The bladder is normal as visualized. The uterus is surgically absent. No adnexal lesion is seen. Skeletal structures: The skeletal structures are osteopenic. There is mild lumbosacral spondylosis. No lytic or blastic lesions are seen. IMPRESSION: 1. Suboptimal examination without oral and IV contrast. 2. Extensive postoperative changes are identified including previous resection of the pancreatic head, cholecystectomy, hysterectomy, and distal gastrectomy with gastrojejunostomy. A small bowel anastomosis is seen in the pelvis and there is evidence of previous sigmoid colon resection. 3. There is evidence of acute pancreatitis. This has modestly worsened as compared to the 06/13/2017 examination. No organized peripancreatic fluid collection is identified. 4. A 9 mm obstructing calculus is again seen in the left proximal ureter. This causes mild hydronephrosis. Follow-up with urology is recommended. 5. Hepatomegaly and hepatic steatosis. 6. Nonobstructing right renal calculi are noted. 7. Additional findings as above. Electronically signed by: Ryan Helms M.D. 06/21/2017 4:33 PM Consultations: Dr. Nolasco from GI Dr. Zarate from urology Medication Reconciliation Continued Medications: Albuterol Hfa (Ventolin Hfa) 200 Puffs/22999 Mcg Aers 2 PUFF INH QID PRN for SOB/Wheezing Allopurinol (Allopurinol) 100 Mg Tab 100 MG PO DAILY Ascorbic Acid (Vitamin C) 500 Mg Tab 500 MG PO BID Cholecalciferol (Vitamin D3) 2,000 Unit Tab 2000 UNITS PO BID Citalopram (Citalopram Hydrobromide) 20 Mg Tab 20 MG PO DAILY Colesevelam Hcl (Welchol) 625 Mg Tab 625 MG PO d, TAB take 625mg daily with dinner Colestipol Hcl (Colestid) 1 Gm Tab 2 GM PO BID, TAB Cyanocobalamin (Vitamin B-12) 1,000 Mcg Tab 1000 MCG PO QAM, TAB Dextrose (Diabetic Use) (Glucose) 4 Gm Chw 4 TABS PO prn Digoxin (Digox) 125 Mcg Tab 125 MCG PO QAM Diltiazem Hcl Coated Beads (Cartia Xt) 120 Mg Cap 120 MG PO BID Docusate Sodium (Colace) 100 Mg Cap 100 MG PO BID for 30 Days, #60 CAP Fenofibrate (Fenofibrate) 145 Mg Tab 145 MG PO QAM, #30 Fentanyl (Fentanyl) 25 Mcg Tdsy 1 PATCH TOP Q72H Fish Oil (Torreon-3) 1 Ea Cap 1 CAP PO QPM, CAP Gabapentin (Neurontin) 100 Mg Cap 100 MG PO TID, CAP Insulin Aspart (Novolog Penfill) 100 Unit/Ml Inj 1 DOSE INJ UD take 22 units with breakfast, 22 units with lunch and 20 units with supper Insulin Glargine (Lantus Solostar) 100 Unit/Ml Inj 44 UNITS SC HS, PEN Insulin Lispro (Human) (Humalog Kwikpen) 100 Unit/Ml Inj 1 DOSE SQ UD take 18 units at breakfast, 20 units at lunch, and 20 units at supper Lactobacillus (Probiotic) 1 Cap Cap 1 CAP PO DAILY Magnesium Oxide (Mag-Ox) 400 Mg Tab 400 MG PO BID, TAB Metoprolol Succinate (Metoprolol Succinate ER) 25 Mg Tabcr 25 MG PO BID Naloxegol Oxalate (Movantik) 12.5 Mg Tab 12.5 MG PO QPM Ondansetron Hcl (Zofran) 4 Mg Tab 4 MG PO PC PRN for Nausea, #30 TAB 3 Refills Pancrelipase (Lipase-Protease- (Creon 00555) 1 Cap Cap 2 CAP PO TIDM, CAP Pantoprazole (Pantoprazole Sodium) 40 Mg Tab 40 MG PO DAILY Polyethylene Glycol 3350 (Miralax) 1 Pow Pow 17 GM PO DAILY for CONSTIPATION Sucralfate (Carafate) 1 Gm Tab 1 GM PO QID, TAB DISSOLVE TABLET INTO 4OZ OF WATER FOUR TIMES DAILY Trazodone Hcl (Trazodone) 50 Mg Tab 150 MG PO HS, TAB Warfarin Sod (Coumadin) 1 Mg Tab 1 MG PO DAILY Warfarin Sodium (Coumadin) 3 Mg Tab 3 MG PO DAILY, TAB Discharge Exam ROS Constitutional: no chills, aches, sweats or fever Respiratory: no sob,cough, sputum, or wheezing Cardiac: no chest pain, palpitations, edema, orthopnea or lightheadedness GI: see HPI : no dysuria or hesitancy Extremities: no joint pain or weakness Skin: no rash General: no distress Eyes: normal inspection, PERLL Respiratory: chest non tender, clear to auscultation, normal breath sounds, no respiratory distress, no accessory muscle use Cardiac: regular rate and rhythm, no rub or gallop, no murmur, no edema, no jvd GI/: active bowel sounds, left upper abdominal tenderness, soft, non distended Extremities: normal range of motion, normal strength, non tender Neuro/Psych: alert and oriented x 3, normal mood and affect Skin: normal color, dry Hospital Course 61 y/o female with a history of HTN, HLD, a-fib, DM II, neuropathy, pancreatic cancer s/p Whipple procedure, chronic pancreatitis, depression, gout, and GERD who presents with abdominal pain, nausea, and vomiting. The patient was found to have acute on chronic pancreatitis, a-fib with RVR, and left obstructing ureteral stone with hydronephrosis. Left ureteral stone w/hydronephrosis--stable -9 mm obstructing stone in left proximal ureter w/mild hydronephrosis - cystoscopy with left ureteral stent on 06/22, tolerated well, less pain -Cipro 400 mg IV BID, day #5, cultures show enterococcus, sensitive to Cipro - will need 14 days total, last day would be 07/05 Acute on chronic pancreatitis, pancreatic cancer s/p Whipple in 2011, Chronic abdominal pain, due to pancreatitis - continue Fentanyl patch, Dilaudid [employer] stopped yesterday, Dilaudid 1mg IV q4 PRN, percoset per pain management recommendations - they do not want to perform injections until GI workup is complete. - three weeks ago she had a celiac block, only lasted a few days - was discharged on Fentanyl patch and Nucynta, however, her co-pay was too high for Nucynta, could not afford it - pain management consulted MRCP cannot be done because she has coils in brain from aneurysm -- discussed with patient, coils were 20 years ago, they inquired several years ago and there was no record as to what material, could not have MRI - ultimately needs evaluated with ERCP at [facility] - will need to decide if we should transfer or discharge when stable to go outpatient - advance to low fat diet per GI recommendation - LFTs, lipase tomorrow am A-fib with RVR--resolved with pain control and fluids and resuming medications -Continue digoxin 125 mcg PO qd, diltiazem 120 mg PO BID, Toprol XL 25 mg PO BID, rates are controlled again today - on Lovenox, hold Coumadin for future ERCP Hypomagnesemia--ongoing despite replacement - Mag 1.7 again on 06/26 - Mag sulfate 1 gm IV qd, continue mag oxide 400 mg PO BID - Continue to monitor - Hypokalemia: 3.4 again today, she is on LR + 20mEq potassium, po replacement HTN, HLD--stable -Continue metoprolol and diltiazem as above, Welchol 625 mg PO qd, Colestid 2 gm PO BID, fenofibrate 145 mg PO qd DM II--stable -Home Lantus reduced to 22 units SC qd due to NPO, can increase back to home dose if having adequate PO intake -Insulin sliding scale -Check BSGs q ac and qhs -HgbA1c 7.9 on 06/23 Neuropathy -Continue gabapentin 100 mg PO TID Depression/insomnia -Continue citalopram 20 mg PO qd and trazodone 150 mg PO hs Gout -Continue allopurinol 100 mg PO qd GERD -D/C IV Protonix, convert to PO DVT prophylaxis -Therapeutic Lovenox -SCDs Code Status -Level I, FULL RESUSCITATION STATUS Discharge planning: home Supervising Note Dr. Rust Please disregard this discharge summary as patient is being discharged tomorrow. Please refer to progress note. Total Time Spent: Greater than 30 minutes This includes examination of the patient, discharge planning, medication reconciliation, and communication with other providers. Discharge Instructions Please refer to the electronic Patient Visit Report (Discharge Instructions) for additional information.
--- NOTE | 2017-06-26 19:43 | DIAGNOSTIC IMAGING REPORT ---
SINGLE VIEW CHEST CLINICAL HISTORY: Hypoxia. FINDINGS: An AP, portable, upright chest radiograph is compared to study dated 02/18/2016. The examination is degraded by portable technique and patient rotation. The cardiomediastinal silhouette is unremarkable. There is mild atherosclerotic calcification of the thoracic aorta. Emphysema is suggested. Chronic interstitial thickening is similar to previous. Bibasilar airspace opacities likely represent atelectasis. No large pleural effusion is identified. No pneumothorax is seen. The skeletal structures are osteopenic. The bony thorax is grossly intact. IMPRESSION: 1. Bibasilar opacities likely represent atelectasis. Clinical correlation will be required. 2. No large pleural effusion is identified. Electronically signed by: Ryan Helms M.D. 06/26/2017 7:41 PM Dictated Date/Time: 06/26/2017 7:39 PM
[2017-06-26] MEDS: TRAZODONE HCL 50 MG TAB PO SCH (21:49)
[2017-06-26] MEDS: TAMSULOSIN HCL 0.4 MG CAP PO SCH (21:49)
[2017-06-26] MEDS: INSULIN GLARGINE SOLOSTAR 100 UNITS/ML 3 ML PEN SC SCH (21:53)
[2017-06-26] MEDS: HYDROmorphone INJ 0.5 MG/0.5 ML SYR IV PRN (23:58)
[2017-06-27] MEDS: POTASSIUM CHLORIDE INJ 20 MEQ in LACTATED RINGER'S 1000ML 1,000 ML IV SCH (03:20)
[2017-06-27 06:38] LABS: INR 1.1 (0.9-1.1)
[2017-06-27 07:10] LABS: ALBUMIN 2.5 gm/dl (3.4-5.0); ALKALINE PHOSPHATASE 65 U/L (45-117); ALT/SGPT 18 U/L (12-78); AST/SGOT 17 U/L (15-37); LIPASE 90 U/L (73-393); TOTAL PROTEIN 6.2 gm/dl (6.4-8.2)
[2017-06-27 07:28] VITALS: BP 131/77; PULSE 85; TEMP 37; O2SAT 79
[2017-06-27 07:32] VITALS: O2SAT 91
[2017-06-27] MEDS ORDERED: ALBUT/IPRATROP 3MG/0.5MG NEB 3 ML VIAL INH PRN (08:15)
[2017-06-27 08:21] VITALS: PULSE 82; O2SAT 93
[2017-06-27] MEDS ORDERED: ALBUT/IPRATROP 3MG/0.5MG NEB 3 ML VIAL INH ONE (08:45)
[2017-06-27] MEDS: POLYETHYLENE (MIRALAX) 17 GM PACK PO SCH (09:00)
--- NOTE | 2017-06-27 09:01 | DIAGNOSTIC IMAGING REPORT ---
(CHEST) THORAX WITHOUT CLINICAL HISTORY: 61 years-old Female presenting with hypoxia. TECHNIQUE: Multidetector CT imaging of the chest was performed without the use of intravenous contrast. IV contrast: None. A dose lowering technique was used consistent with the principles of ALARA (as low as reasonably achievable). COMPARISON: Chest x-ray performed the previous day. CT DOSE (mGy.cm): The estimated cumulative dose is 656.21 mGy.cm. FINDINGS: Maintenance Equipment Operator topogram: Cardiomegaly. On soft tissue windows, normal thyroid and thoracic inlet. Numerous prominent subcentimeter mediastinal lymph nodes with a single pathologically enlarged node in the precarinal region measuring 14 mm in the short axis (series 4 image 106). Evaluation of the etta is limited in the absence of intravenous contrast. Atherosclerosis of the aorta. Multichamber enlargement of the heart. Coronary artery calcification. Trace bilateral pleural effusions. No pericardial effusion. Borderline hepatic steatosis. Left perinephric infiltration, nonspecific. Trace fluid noted in the left anterior para renal space. On lung windows, extensive dependent consolidation greater than expected for passive atelectasis in the setting of the trace pleural effusions. Smooth interlobular septal thickening evident. Minimal paraseptal emphysematous changes. Trace debris in the trachea. On bone windows, normal osseous structures. IMPRESSION: 1. Extensive dependent consolidation greater than expected for passive atelectasis in the setting of the trace bilateral pleural effusions. This raises concern for aspiration or infection. 2. Congestive changes in the setting of cardiomegaly. No john pulmonary edema. 3. Left retroperitoneal fluid. This abnormality is only partially visualized. Correlate with lipase. Dedicated imaging of the abdomen and pelvis to be considered as clinically indicated. 4. Pathologically enlarged lymph node in the precarinal region with numerous prominent subcentimeter mediastinal. These could be reactive. Attention on follow-up. Electronically signed by: Osmel Mcmillan M.D. 06/27/2017 8:59 AM Dictated Date/Time: 06/27/2017 8:54 AM
[2017-06-27] MEDS: CHECK FENTANYL PATCH PLACEMENT SCH (09:05)
[2017-06-27] MEDS: SUCRALFATE 1 GM TAB PO SCH (09:08)
[2017-06-27] MEDS: METOPROLOL SUCC 25MG EXT REL TAB PO SCH (09:08)
[2017-06-27] MEDS: OXYBUTYNIN CHLORIDE 5 MG TAB PO SCH (09:09)
[2017-06-27] MEDS: ALLOPURINOL 100 MG TAB PO SCH (09:12)
[2017-06-27] MEDS: DILTIAZEM HCL 120 MG CAPCR PO SCH (09:13)
[2017-06-27] MEDS: GABAPENTIN 100 MG CAP PO SCH (09:14)
[2017-06-27] MEDS: PHENAZOPYRIDINE HCL 200 MG TAB PO SCH (09:14)
[2017-06-27] MEDS: MAGNESIUM OXIDE 400 MG TAB PO SCH (09:14)
[2017-06-27] MEDS: PANTOprazole SOD 40 MG TAB PO SCH (09:14)
[2017-06-27] MEDS: DOCUSATE SODIUM 100 MG CAP PO SCH (09:15)
[2017-06-27] MEDS: PANCREAZE (LIPASE 10,500U) CAP PO SCH (09:15)
[2017-06-27] MEDS: CITALOPRAM 20 MG TAB PO SCH (09:15)
[2017-06-27] MEDS: CIPROFLOXACIN / D5W 400 MG in PREMIXED IN D5W 200 ML IV SCH (09:16)
[2017-06-27] MEDS: ONDANSETRON 4MG OD TAB PO PRN (09:19)
[2017-06-27] MEDS: NICOTINE 14 MG/24 HR TDSY TD SCH (09:20)
[2017-06-27] MEDS: INSULIN ASPART 100 UNITS/ML 3 ML PEN SC SCH (09:27)
[2017-06-27] MEDS ORDERED: POTASSIUM CITRATE 10 MEQ TAB PO STA (09:57)
[2017-06-27] MEDS: COLESTIPOL HCL 1 GM TAB PO SCH (10:08)
[2017-06-27] MEDS: FENOFIBRATE 145 MG TAB PO SCH (10:08)
[2017-06-27] MEDS ORDERED: FUROSEMIDE INJ 40 MG in SYRINGE 0 ML IV ONE (10:15)
--- NOTE | 2017-06-27 10:16 | Discharge Summary ---
Discharge Summary Date of Service Jun 27, 2017. Discharge Summary Admission Date: Jun 21, 2017 at 18:48 Discharge Date: Jun 26, 2017 Discharge Disposition: Acute care facility Principal Diagnosis: Acute on Chronic pancreatitis, kidney stone, possible atelectasis, asp PNA Immunizations: Have You Had Influenza Vaccine: No History of Tetanus Vaccine?: No History of Pneumococcal: No History of Hepatitis B Vaccine: No Procedures: (CHEST) THORAX WITHOUT CLINICAL HISTORY: 61 years-old Female presenting with hypoxia. TECHNIQUE: Multidetector CT imaging of the chest was performed without the use of intravenous contrast. IV contrast: None. A dose lowering technique was used consistent with the principles of ALARA (as low as reasonably achievable). COMPARISON: Chest x-ray performed the previous day. CT DOSE (mGy.cm): The estimated cumulative dose is 656.21 mGy.cm. FINDINGS: Nursing Services Manager topogram: Cardiomegaly. On soft tissue windows, normal thyroid and thoracic inlet. Numerous prominent subcentimeter mediastinal lymph nodes with a single pathologically enlarged node in the precarinal region measuring 14 mm in the short axis (series 4 image 106). Evaluation of the etta is limited in the absence of intravenous contrast. Atherosclerosis of the aorta. Multichamber enlargement of the heart. Coronary artery calcification. Trace bilateral pleural effusions. No pericardial effusion. Borderline hepatic steatosis. Left perinephric infiltration, nonspecific. Trace fluid noted in the left anterior para renal space. On lung windows, extensive dependent consolidation greater than expected for passive atelectasis in the setting of the trace pleural effusions. Smooth interlobular septal thickening evident. Minimal paraseptal emphysematous changes. Trace debris in the trachea. On bone windows, normal osseous structures. IMPRESSION: 1. Extensive dependent consolidation greater than expected for passive atelectasis in the setting of the trace bilateral pleural effusions. This raises concern for aspiration or infection. 2. Congestive changes in the setting of cardiomegaly. No ojhn pulmonary edema. 3. Left retroperitoneal fluid. This abnormality is only partially visualized. Correlate with lipase. Dedicated imaging of the abdomen and pelvis to be considered as clinically indicated. 4. Pathologically enlarged lymph node in the precarinal region with numerous prominent subcentimeter mediastinal. These could be reactive. Attention on follow-up. Electronically signed by: Osmel Mcmillan M.D. 06/27/2017 8:59 AM Dictated Date/Time: 06/27/2017 8:54 AM [facility]UB CLINICAL HISTORY: Nephrolithiasis. Ureteral stent placement. FINDINGS: An AP supine abdominal radiograph is compared to study dated 04/15/2016 and correlated with abdominal CT dated 06/21/2017. There is a nonobstructed abdominal bowel gas pattern. Suture material projects over the left mid abdomen and the pelvis. A left ureteral stent is in place. No calcification is seen projecting along the course of the stent. An 8 mm calculus projects over the lower pole of the left kidney. No calcifications are clearly seen projecting over the right kidney or along the course of the right ureter. Numerous small pelvic phleboliths are observed. IMPRESSION: 1. A left ureteral stent has been placed. No calcifications are seen projecting along the course of the stent. 2. An 8 mm calcification projects over the lower pole of the left kidney. Electronically signed by: Ryan Helms M.D. 06/23/2017 11:54 AM KUB CLINICAL HISTORY: LT CYSTO/STENT COMPARISON STUDY: CT of the abdomen and pelvis June 21, 2017. Fluoroscopy time: 5.9 seconds. FINDINGS: 2 fluoroscopic images from a left retrograde exam were submitted for interpretation. These images demonstrate placement of a left ureteral stent. Stent appears appropriately positioned. IMPRESSION: Fluoroscopic images from left retrograde exam with ureteral stent insertion. Electronically signed by: Baron Garcia M.D. 06/22/2017 2:[address] SCAN OF THE ABDOMEN AND PELVIS WITHOUT IV CONTRAST CLINICAL HISTORY: Generalized abdominal pain. Obstipation. COMPARISON STUDY: Recent prior abdominal CT scans dated 06/13/2017 and 06/04/2017. TECHNIQUE: CT scan of the abdomen and pelvis is performed from the lung bases to the proximal femora. Images are reviewed in the axial, sagittal, and coronal planes. IV contrast was not administered for this examination as per the referring clinician. Note that the examination was performed and significantly suboptimal fashion without oral and IV contrast. A dose lowering technique was utilized adhering to the principles of ALARA. CT DOSE: 627.70 mGy.cm FINDINGS: Lung bases: The heart is top normal in size noting trace pericardial fluid. There are coronary artery calcifications. The lung bases are clear noting minimal dependent atelectasis. Liver: The unenhanced liver is enlarged, measuring over 18 cm in length. The liver demonstrates diffusely diminished attenuation consistent with hepatic steatosis. There is no intrahepatic biliary ductal dilatation. Gallbladder: Surgically absent. Spleen: Normal in size and attenuation. Pancreas: The unenhanced pancreas is moderately atrophic. Findings are consistent with previous surgical resection of the pancreatic head. Peripancreatic stranding and fluid are again seen. This has modestly increased from 06/13/2017. No organized peripancreatic fluid collection is seen on this unenhanced examination. Adrenal glands: Unremarkable. Kidneys: The unenhanced kidneys are normal in size. Again seen is a 9 mm obstructing calculus in the left proximal ureter at the level of L3-L4. This is seen on image #191, and the stone causes mild left-sided hydronephrosis. No additional left-sided renal calculi are identified. There are least 3 small nonobstructing right renal calculi measuring up to 3 mm. A 7.5 cm cyst arises from the lower pole of the right kidney. Abdominal vasculature: There is advanced atherosclerotic calcification and mild ectasia of the abdominal aorta. Stomach and bowel: There is evidence of distal gastrectomy with gastrojejunostomy. There are postoperative changes from left colon resection with colocolonic anastomosis. A small bowel anastomosis is also seen in the pelvis. No bowel obstruction is identified. Colonic interposition is incidentally noted. The appendix is not visualized. Peritoneum: There is no intraperitoneal free air or abdominal ascites. There is a small fat-containing hernia in the left ventral pelvis seen on image #282, possibly incisional. Lymphadenopathy: None. Pelvic viscera: The bladder is normal as visualized. The uterus is surgically absent. No adnexal lesion is seen. Skeletal structures: The skeletal structures are osteopenic. There is mild lumbosacral spondylosis. No lytic or blastic lesions are seen. IMPRESSION: 1. Suboptimal examination without oral and IV contrast. 2. Extensive postoperative changes are identified including previous resection of the pancreatic head, cholecystectomy, hysterectomy, and distal gastrectomy with gastrojejunostomy. A small bowel anastomosis is seen in the pelvis and there is evidence of previous sigmoid colon resection. 3. There is evidence of acute pancreatitis. This has modestly worsened as compared to the 06/13/2017 examination. No organized peripancreatic fluid collection is identified. 4. A 9 mm obstructing calculus is again seen in the left proximal ureter. This causes mild hydronephrosis. Follow-up with urology is recommended. 5. Hepatomegaly and hepatic steatosis. 6. Nonobstructing right renal calculi are noted. 7. Additional findings as above. Electronically signed by: Ryan Helms M.D. 06/21/2017 4:33 PM Medication Reconciliation Continued Medications: Albuterol Hfa (Ventolin Hfa) 200 Puffs/55661 Mcg Aers 2 PUFF INH QID PRN for SOB/Wheezing Allopurinol (Allopurinol) 100 Mg Tab 100 MG PO DAILY Ascorbic Acid (Vitamin C) 500 Mg Tab 500 MG PO BID Cholecalciferol (Vitamin D3) 2,000 Unit Tab 2000 UNITS PO BID Citalopram (Citalopram Hydrobromide) 20 Mg Tab 20 MG PO DAILY Colesevelam Hcl (Welchol) 625 Mg Tab 625 MG PO d, TAB take 625mg daily with dinner Colestipol Hcl (Colestid) 1 Gm Tab 2 GM PO BID, TAB Cyanocobalamin (Vitamin B-12) 1,000 Mcg Tab 1000 MCG PO QAM, TAB Dextrose (Diabetic Use) (Glucose) 4 Gm Chw 4 TABS PO prn Digoxin (Digox) 125 Mcg Tab 125 MCG PO QAM Diltiazem Hcl Coated Beads (Cartia Xt) 120 Mg Cap 120 MG PO BID Docusate Sodium (Colace) 100 Mg Cap 100 MG PO BID for 30 Days, #60 CAP Fenofibrate (Fenofibrate) 145 Mg Tab 145 MG PO QAM, #30 Fentanyl (Fentanyl) 25 Mcg Tdsy 1 PATCH TOP Q72H Fish Oil (Manor-3) 1 Ea Cap 1 CAP PO QPM, CAP Gabapentin (Neurontin) 100 Mg Cap 100 MG PO TID, CAP Insulin Aspart (Novolog Penfill) 100 Unit/Ml Inj 1 DOSE INJ UD take 22 units with breakfast, 22 units with lunch and 20 units with supper Insulin Glargine (Lantus Solostar) 100 Unit/Ml Inj 44 UNITS SC HS, PEN Insulin Lispro (Human) (Humalog Kwikpen) 100 Unit/Ml Inj 1 DOSE SQ UD take 18 units at breakfast, 20 units at lunch, and 20 units at supper Lactobacillus (Probiotic) 1 Cap Cap 1 CAP PO DAILY Magnesium Oxide (Mag-Ox) 400 Mg Tab 400 MG PO BID, TAB Metoprolol Succinate (Metoprolol Succinate ER) 25 Mg Tabcr 25 MG PO BID Naloxegol Oxalate (Movantik) 12.5 Mg Tab 12.5 MG PO QPM Ondansetron Hcl (Zofran) 4 Mg Tab 4 MG PO PC PRN for Nausea, #30 TAB 3 Refills Pancrelipase (Lipase-Protease- (Creon 57367) 1 Cap Cap 2 CAP PO TIDM, CAP Pantoprazole (Pantoprazole Sodium) 40 Mg Tab 40 MG PO DAILY Polyethylene Glycol 3350 (Miralax) 1 Pow Pow 17 GM PO DAILY for CONSTIPATION Sucralfate (Carafate) 1 Gm Tab 1 GM PO QID, TAB DISSOLVE TABLET INTO 4OZ OF WATER FOUR TIMES DAILY Trazodone Hcl (Trazodone) 50 Mg Tab 150 MG PO HS, TAB Warfarin Sod (Coumadin) 1 Mg Tab 1 MG PO DAILY Warfarin Sodium (Coumadin) 3 Mg Tab 3 MG PO DAILY, TAB Discharge Exam ROS Constitutional: no chills, aches, sweats or fever Respiratory: no sob,cough, sputum, or wheezing Cardiac: no chest pain, palpitations, edema, orthopnea or lightheadedness GI: see HPI : no dysuria or hesitancy Extremities: no joint pain or weakness Skin: no rash General: no distress Eyes: normal inspection, PERLL Respiratory: chest non tender, clear to auscultation except for rales in lower extremity, no respiratory distress, no accessory muscle use Cardiac: regular rate and rhythm, no rub or gallop, no murmur, no edema, no jvd GI/: active bowel sounds, left upper abdominal tenderness, soft, non distended Extremities: normal range of motion, normal strength, non tender Neuro/Psych: alert and oriented x 3, normal mood and affect Skin: normal color, dry Hospital Course 61 y/o female with a history of HTN, HLD, a-fib, DM II, neuropathy, pancreatic cancer s/p Whipple procedure, chronic pancreatitis, depression, gout, and GERD who presents with abdominal pain, nausea, and vomiting. The patient was found to have acute on chronic pancreatitis, a-fib with RVR, and left obstructing ureteral stone with hydronephrosis. Left ureteral stone w/hydronephrosis--stable -9 mm obstructing stone in left proximal ureter w/mild hydronephrosis - cystoscopy with left ureteral stent on 06/22, tolerated well, less pain -Cipro 400 mg IV BID, day #5, cultures show enterococcus, sensitive to Cipro - will need 14 days total, last day would be 07/05 Acute on chronic pancreatitis, pancreatic cancer s/p Whipple in 2011, Chronic abdominal pain, due to pancreatitis - continue Fentanyl patch, Dilaudid [employer] stopped yesterday, Dilaudid 1mg IV q4 PRN, percoset per pain management recommendations - they do not want to perform injections until GI workup is complete. - three weeks ago she had a celiac block, only lasted a few days - was discharged on Fentanyl patch and Nucynta, however, her co-pay was too high for Nucynta, could not afford it - pain management consulted MRCP cannot be done because she has coils in brain from aneurysm -- discussed with patient, coils were 20 years ago, they inquired several years ago and there was no record as to what material, could not have MRI - ultimately needs evaluated with ERCP at [facility] -will be transferred today. Will need ERCP to be done. - advance to low fat diet per GI recommendation - LFTs, lipase tomorrow am Aspiration PNA vs atelectasis Patient had hypoxia overnight (06/26/17-06/27/17) and required oxymask. Patient however today has improved and is back to nasal cannula. As patient is getting ready for transfer, obtained stat CT scan which showed slightly large atelectasis Could be aspiration pneumonia vs chemical pneumonitis, however patient does not appear ill a this time. No fever, tachycardia. Will recommend incentive spirometry and monitoring clinically. Due to larger allergy list. If patient worsens, may consider clindamycin PO TID. May require medicine consult as patient will be under gen surgery service. A-fib with RVR--resolved with pain control and fluids and resuming medications -Continue digoxin 125 mcg PO qd, diltiazem 120 mg PO BID, Toprol XL 25 mg PO BID, rates are controlled again today - on Lovenox, hold Coumadin for future ERCP Hypomagnesemia--ongoing despite replacement - Mag 1.7 again on 06/26 - Mag sulfate 1 gm IV qd, continue mag oxide 400 mg PO BID - Continue to monitor - Hypokalemia: 3.4 again today, she is on LR + 20mEq potassium, po replacement HTN, HLD--stable -Continue metoprolol and diltiazem as above, Welchol 625 mg PO qd, Colestid 2 gm PO BID, fenofibrate 145 mg PO qd DM II--stable -Home Lantus reduced to 22 units SC qd due to NPO, can increase back to home dose if having adequate PO intake -Insulin sliding scale -Check BSGs q ac and qhs -HgbA1c 7.9 on 06/23 Neuropathy -Continue gabapentin 100 mg PO TID Depression/insomnia -Continue citalopram 20 mg PO qd and trazodone 150 mg PO hs Gout -Continue allopurinol 100 mg PO qd GERD -D/C IV Protonix, convert to PO DVT prophylaxis -Therapeutic Lovenox -SCDs Code Status -Level I, FULL RESUSCITATION STATUS Discharge planning: home Total Time Spent: Greater than 30 minutes This includes examination of the patient, discharge planning, medication reconciliation, and communication with other providers. Discharge Instructions Please refer to the electronic Patient Visit Report (Discharge Instructions) for additional information.
[2017-06-27] MEDS: PROMETHAZINE HCL INJ 25 MG in SODIUM CHLORIDE 0.9% 50ML 50 ML IV PRN (10:30)
[2017-06-27] MEDS: HYDROmorphone INJ 0.5 MG/0.5 ML SYR IV PRN (10:40)
[2017-06-28] MEDS ORDERED: FENTANYL PATCH REMOVE & WASTE SCH (10:59)
== END 2017-06-27 11:12 | disposition short-term general hospital (02) | DRG 693 ==
LOC: C.EDA 15:23 → EDBD 15:23 → C.2T 18:48 → ENRESERV 19:22 → CANRESERV 19:22 → ENRESERV 19:48 → C.MSN 06-23 11:36
PROVIDERS: ADMIT Internal Medicine; ATTEND Internal Medicine Sports Medicine
PROC: 0T778DZ Dilation of Left Ureter with Intraluminal Device, Via Natural or Artificial Opening Endoscopic (ICD-10-PCS; principal; 2017-06-22 12:30)
DX: N13.2 Hydronephrosis with renal and ureteral calculous obstruction (principal); K85.90 Acute pancreatitis without necrosis or infection, unspecified; K86.1 Other chronic pancreatitis; I48.92 Unspecified atrial flutter; I48.91 Unspecified atrial fibrillation; N39.0 Urinary tract infection, site not specified; B95.2 Enterococcus as the cause of diseases classified elsewhere; G89.29 Other chronic pain; E87.6 Hypokalemia; E83.42 Hypomagnesemia; K21.9 Gastro-esophageal reflux disease without esophagitis; E11.40 Type 2 diabetes mellitus with diabetic neuropathy, unspecified; I11.9 Hypertensive heart disease without heart failure; M10.9 Gout, unspecified; F41.9 Anxiety disorder, unspecified; F32.9 Major depressive disorder, single episode, unspecified; F17.200 Nicotine dependence, unspecified, uncomplicated; Z79.899 Other long term (current) drug therapy; Z79.01 Long term (current) use of anticoagulants; Z79.4 Long term (current) use of insulin; Z85.07 Personal history of malignant neoplasm of pancreas; Z87.19 Personal history of other diseases of the digestive system; Z87.442 Personal history of urinary calculi; Z98.890 Other specified postprocedural states; Z88.1 Allergy status to other antibiotic agents; Z88.0 Allergy status to penicillin; Z88.2 Allergy status to sulfonamides; Z88.5 Allergy status to narcotic agent; Z88.8 Allergy status to other drugs, medicaments and biological substances; Z91.013 Allergy to seafood; Z91.041 Radiographic dye allergy status; Z91.048 Other nonmedicinal substance allergy status; Z82.49 Family history of ischemic heart disease and other diseases of the circulatory system; Z84.1 Family history of disorders of kidney and ureter; Z84.89 Family history of other specified conditions

== ENCOUNTER 2017-07-06 15:18 | Emergency (ER) | payer OTHER ==
[~2017-07-06] VITALS: Ht 165.1 cm; Wt 88.0 kg
[~2017-07-06 15:18] MED LIST changes: -ACET-1256 PO; +CMD1 PO; +DEXT4CHW60 PO; +DRGTP25 TOP; +GABA-112 PO; -GABA100C13 PO; +INSU1INJ2 INJ; +LACT1CAP6 PO; -NCY50 PO; -NCYSR50 PO; -NICO14DI5 TD; +WLC625 PO
[2017-07-06 15:33] VITALS: Ht 165.1 cm; Wt 88.0 kg
[2017-07-06] MEDS ORDERED: SODIUM CHLORIDE 0.9% 1000ML 1,000 ML IV STA (15:34)
[2017-07-06] MEDS ORDERED: ONDANSETRON INJ 2 MG/ML 2 ML VIAL IV STA (15:34)
[2017-07-06] MEDS ORDERED: HYDROmorphone INJ 1 MG/ML SYR IV STA (15:34)
[2017-07-06 16:34] LABS: BASO % 0.4 %; BASO ABS # 0.03 K/uL (0-0.2); EOS % 1.2 %; HEMATOCRIT 41.9 % (37-47); HEMOGLOBIN 14.2 g/dL (12.0-16.0); IG# 0.03 K/uL (0.00-0.02); LYMPH % 35.6 %; LYMPH ABS # 2.86 K/uL (1.2-3.4); MEAN CELL VOLUME 85.3 fL (80-100); MEAN CORPUSCULAR HEMOGLOBIN 28.9 pg (25-34); MEAN CORPUSCULAR HGB CONC 33.9 g/dl (32-36); MEAN PLATELET VOLUME 10.6 fL (7.4-10.4); MONO % 14.6 %; MONO ABS # 1.17 K/uL (0.11-0.59); NEUT % 47.8 %; NEUT ABS # 3.85 K/uL (1.4-6.5); PLATELET COUNT 346 K/uL (130-400); RED CELL DISTRIBUTION WIDTH CV 13.8 % (11.5-14.5); RED CELL DISTRIBUTION WIDTH SD 42.8 fL (36.4-46.3); WHITE BLOOD COUNT 8.04 K/uL (4.8-10.8)
[2017-07-06 16:42] LABS: INR 1.2 (0.9-1.1); PTT PATIENT 28.2 SECONDS (21.0-31.0)
[2017-07-06 16:51] LABS: ALBUMIN 3.3 gm/dl (3.4-5.0); ALT/SGPT 23 U/L (12-78); AST/SGOT 18 U/L (15-37); BLOOD UREA NITROGEN 9 mg/dl (7-18); CALCIUM 10.6 mg/dl (8.5-10.1); CARBON DIOXIDE 23 mmol/L (21-32); CREATININE 0.62 mg/dl (0.60-1.20); GLUCOSE 171 mg/dl (70-99); LIPASE 311 U/L (73-393); POTASSIUM 3.8 mmol/L (3.5-5.1); SODIUM 138 mmol/L (136-145)
[2017-07-06 16:54] LABS: ALKALINE PHOSPHATASE 82 U/L (45-117); TOTAL PROTEIN 7.5 gm/dl (6.4-8.2)
[2017-07-06] MEDS ORDERED: TRAZ100T29 PO (17:51)
[2017-07-06] MEDS ORDERED: GABA100C13 PO (17:51)
[2017-07-06] MEDS ORDERED: NICO14DI31 TD (17:51)
[2017-07-06] MEDS ORDERED: CITA-294 PO (17:51)
[2017-07-06] MEDS ORDERED: ENOX80IN SQ (17:51)
[2017-07-06] MEDS ORDERED: TAMS0.4C38 PO (17:51)
[2017-07-06] MEDS ORDERED: DILT180C48 PO (17:51)
[2017-07-06] MEDS ORDERED: TPRSR/50 PO (17:51)
--- NOTE | 2017-07-06 18:10 | DIAGNOSTIC IMAGING REPORT ---
ABD/PELVIS WITHOUT FOR STONE HISTORY: 61 years-old Female L flank pain acute left-sided flank pain. History of recent acute pancreatitis. COMPARISON: CT 06/21/2017 TECHNIQUE: Multiple axial CT images of the abdomen and pelvis were obtained without the use of contrast. A dose lowering technique was used consistent with the principals of KINZA. FINDINGS: Mild subsegmental dependent bibasilar atelectasis. No pneumatosis or pneumoperitoneum identified. Imaged inferior cardiac chambers are mildly enlarged. Coronary arterial disease. Small pericardial effusion. Evaluation of the solid abdominal organs is limited without the use of IV contrast. Within the limitations of the study, the liver, spleen and right adrenal gland are unremarkable. 7 mm low attenuating lesion of the left adrenal gland suggests adrenal adenoma. Prior cholecystectomy. Calcifications of the pancreas are compatible with chronic pancreatitis. Additionally, there is again evidence of acute pancreatitis manifested with interstitial and peripancreatic edema of the pancreas, notably involving the body and tail with possible 1.4 cm acute peripancreatic fluid collection adjacent to the pancreatic tail seen on image 46 series 2. Postoperative changes from previous resection of the pancreatic head. There are multiple punctate nonobstructing renal calculi seen on the right. Large cyst of the inferior pole right kidney measures 7.3 cm. There has been interval placement of a left ureteral stent with resolution of the previously noted obstructive uropathy. Mild perinephric and periureteral inflammatory stranding. Previously noted calculus of the proximal left ureter is no longer identified. No bladder calculus. Moderate atherosclerosis of the aorta without aneurysm. No bulky adenopathy. Postoperative changes from prior distal gastrectomy with gastrojejunostomy. Postoperative changes from prior partial sigmoid colon resection. No bowel obstruction or focal bowel wall thickening. Multiple nodular soft tissue attenuating foci of the lower anterior abdominal wall suggest injection granulomas. Hernia of the lateral left anterior abdominal wall appears unchanged. Bones appear intact. IMPRESSION: 1. Interval placement of a left ureteral stent with resolution of the previously noted left-sided obstructive uropathy. Previously noted 9 mm left ureteral calculus is no longer identified. 2. Acute on chronic pancreatitis with possible development of a 1.4 cm acute peripancreatic fluid collection adjacent to the pancreatic tail. 3. Extensive postsurgical changes of the abdomen redemonstrated as above. 4. Punctate nonobstructing right-sided nephrolithiasis. 5. No bowel obstruction. 6. Small pericardial effusion. The above report was generated using voice recognition software. It may contain grammatical, syntax or spelling errors. Electronically signed by: Michel Garcia M.D. 07/06/2017 6:09 PM Dictated Date/Time: 07/06/2017 5:58 PM
[2017-07-06 19:03] VITALS: BP 117/74; PULSE 76; O2SAT 98
--- NOTE | 2017-07-06 23:30 | EMERGENCY ROOM VISIT NOTE ---
ED Visit Note First contact with patient: 15:23 Chief Complaint: Left flank pain. History of Present Illness: Ms. Torres is a 61 year-old white female who is brought into the ED via ambulance complaining of left flank pain. Abdominal pain. Historically patient reports nephrolithiasis, pancreatitis, diverticulitis and is status post appendectomy and cholecystectomy. Patient was discharged from this hospital on June 27 after being admitted for acute on chronic pancreatitis and a left sided ureter calculus. During her admission a ureter stent was placed for a 9 mm calculus. On discharge she was transferred to in [facility] in [place] for her pancreatitis. She was discharged from on July 04. She reports a acute onset of left flank pain that started approximately 17.5 hours ago. Since that time the pain has been constant. She places her discomfort in the left flank area with radiation into the left mid quadrant area around the abdomen. She describes her pain as a dull stabbing sharp sensation. She rates her discomfort/10. Her pain worsens with palpation of her abdomen, percussion of her left flank and generalized body movements. She has not identified any alleviating factors related to the pain. Associated with her pain she reports she has been having chills but is unsure john fevers , nausea without vomiting, urinary burning and hematuria. Patient denies skin eruptions, skin color changes, upper respiratory tract symptoms, shortness of breath, chest pain, diarrhea, constipation, rectal bleeding, black/tarry stools, vaginal bleeding, vaginal discharge. Review of Systems: As noted above in history of present illness. All body systems were reviewed and found to be negative as noted above. Past Medical History: As previously noted and diabetes, hypertension, atrial fibrillation Current Medications: Medications Dose Route/Sig Max Daily Dose Days Date Category Dose Instructions Trazodone (Trazodone HCl) 100 Mg Tab 100 Mg PO HS 07/06/17 Reported Flomax (Tamsulosin Hcl) 0.4 Mg Cap 0.4 Mg PO DAILY 07/06/17 Reported Nicoderm Cq 14MG Patch (Nicotine) 14 Mg/24 Hr Dis 1 Patch TD DAILY 07/06/17 Reported Lovenox (Enoxaparin) 80 Mg/0.8 Ml Inj 80 Mg SQ Q12 07/06/17 Reported Citalopram (Citalopram Hydrobromide) 10 Mg Tab 10 Mg PO HS 07/06/17 Reported Neurontin (Gabapentin) 100 Mg Cap 200 Mg PO TID 07/06/17 Reported Metoprolol Succinate ER (Metoprolol Succinate) 50 Mg Tabcr 50 Mg PO Q12 07/06/17 Reported Dilt-Xr (Diltiazem Hcl) 180 Mg Cap 180 Mg PO DAILY 07/06/17 Reported Fentanyl 25 Mcg Tdsy 1 Patch TOP Q72H 06/21/17 Reported Colace (Docusate Sodium) 100 Mg Cap 100 Mg PO BID 30 06/13/17 Reported Zofran (Ondansetron HCl) 4 Mg Tab 4 Mg PO PC PRN 06/10/17 Rx Humalog Kwikpen (Insulin Lispro (Human)) 100 Unit/Ml Inj 15 Units SQ TIDM 06/04/17 Reported Pantoprazole Sodium (Pantoprazole) 40 Mg Tab 40 Mg PO DAILY 06/04/17 Reported Colestid (Colestipol Hcl) 1 Gm Tab 2 Gm PO BID 06/04/17 Reported Allopurinol 100 Mg Tab 100 Mg PO DAILY 06/04/17 Reported Vitamin C (Ascorbic Acid) 500 Mg Tab 500 Mg PO BID 12/21/16 Reported Movantik (Naloxegol Oxalate) 12.5 Mg Tab 12.5 Mg PO QPM 11/23/16 Reported Creon 80483 (Pancrelipase (Lipase-Protease-) 1 Cap Cap 2 Cap PO TIDM 11/23/16 Reported Digox (Digoxin) 125 Mcg Tab 125 Mcg PO QAM 11/23/16 Reported Vitamin D3 (Cholecalciferol) 2,000 Unit Tab 2,000 Units PO BID 11/23/16 Reported Lantus Solostar (Insulin Glargine) 100 Unit/Ml Inj 35 Units SC HS 03/26/16 Reported Carafate (Sucralfate) 1 Gm Tab 1 Gm PO QID 03/26/16 Reported DISSOLVE TABLET INTO 4OZ OF WATER FOUR TIMES DAILY Fenofibrate 145 Mg Tab 145 Mg PO QAM 06/09/15 Reported Allergies to Medications: Alcohol, iodine, lorazepam, morphine, Bactrim, gemfibrozil, ceftriaxone, ciprofloxacin, lovastatin, ondansetron, azithromycin, tramadol, atorvastatin, ezetimibe, rosuvastatin, IV contrast. Social History: Patient is not currently employed; she is on disability; she feels safe in her home environment; she admits to tobacco use. Physical Examination: Vital Signs: Date Time Temp Pulse Resp B/P (MAP) Pulse Ox O2 Delivery O2 Flow Rate FiO2 07/06/17 19:03 76 20 117/74 98 07/06/17 16:29 80 18 128/86 96 Room Air 07/06/17 15:33 90 20 125/92 97 Room Air GENERAL: 61-year-old female in moderate distress due to pain, nontoxic-appearing , afebrile and hemodynamically stable. Tearful and anxious. NEUROLOGICAL: Awake, alert and oriented to person, place and time. Answering questions appropriately and following commands. Normal gait. Good hand eye coordination. SKIN: Warm, dry and pink. No soft tissue eruptions or trauma noted. HEENT: Atraumatic and normocephalic. PERRLA. Sclera white and conjunctiva pink. Oral cavity moist and pink. Pharynx is nonerythematous or edematous. Speech normal. No lymphadenopathy. Trachea midline. No jugular venous distention. BACK: No tenderness over the bony spine. Left-sided CVA tenderness. THORAX: Lungs sounds are clear to auscultation and equal bilaterally with symmetrical chest wall. No wheezing, rales or rhonchi. No crepitus, tenderness , subcutaneous air or deformities noted. HEART: Regular rate and rhythm. No gallops, rubs or murmurs are appreciated. ABDOMEN: Flat and soft with mild to moderate left upper quadrant pain. Positive bowel sounds in all quadrants. No guarding, rigidity or organomegaly. EXTREMITIES: Moves all extremities well on command and with purpose. All distal neurovascular statuses are intact and equal bilaterally. ED Course: Patient is assessed as noted above. Laboratory Testing: Test 07/06/17 16:19 07/06/17 16:20 07/06/17 16:30 Range/Units Bedside Glucose 177 70-90 mg/dl White Blood Count 8.04 4.8-10.8 K/uL Red Blood Count 4.91 4.2-5.4 M/uL Hemoglobin 14.2 12.0-16.0 g/dL Hematocrit 41.9 37-47 % Mean Corpuscular Volume 85.3 80-100 fL Mean Corpuscular Hemoglobin 28.9 25-34 pg Mean Corpuscular Hemoglobin Concent 33.9 32-36 g/dl Platelet Count 346 130-400 K/uL Mean Platelet Volume 10.6 7.4-10.4 fL Neutrophils (%) (Auto) 47.8 % Lymphocytes (%) (Auto) 35.6 % Monocytes (%) (Auto) 14.6 % Eosinophils (%) (Auto) 1.2 % Basophils (%) (Auto) 0.4 % Neutrophils # (Auto) 3.85 1.4-6.5 K/uL Lymphocytes # (Auto) 2.86 1.2-3.4 K/uL Monocytes # (Auto) 1.17 0.11-0.59 K/uL Eosinophils # (Auto) 0.10 0-0.5 K/uL Basophils # (Auto) 0.03 0-0.2 K/uL RDW Standard Deviation 42.8 36.4-46.3 fL RDW Coefficient of Variation 13.8 11.5-14.5 % Immature Granulocyte % (Auto) 0.4 % Immature Granulocyte # (Auto) 0.03 0.00-0.02 K/uL Prothrombin Time 12.7 9.0-12.0 SECONDS Prothromb Time International Ratio 1.2 0.9-1.1 Activated Partial Thromboplast Time 28.2 21.0-31.0 SECONDS Partial Thromboplastin Ratio 1.1 Sodium Level 138 136-145 mmol/L Potassium Level 3.8 3.5-5.1 mmol/L Chloride Level 110 98-107 mmol/L Carbon Dioxide Level 23 21-32 mmol/L Anion Gap 5.0 3-11 mmol/L Blood Urea Nitrogen 9 7-18 mg/dl Creatinine 0.62 0.60-1.20 mg/dl Est Creatinine Clear Calc Drug Dose 103.1 ml/min Estimated GFR () 112.0 Estimated GFR (Non- 96.6 BUN/Creatinine Ratio 15.0 10-20 Random Glucose 171 70-99 mg/dl Calcium Level 10.6 8.5-10.1 mg/dl Total Bilirubin 0.2 0.2-1 mg/dl Direct Bilirubin < 0.1 0-0.2 mg/dl Aspartate Amino Transf (AST/SGOT) 18 15-37 U/L Alanine Aminotransferase (ALT/SGPT) 23 12-78 U/L Alkaline Phosphatase 82 45-117 U/L Total Protein 7.5 6.4-8.2 gm/dl Albumin 3.3 3.4-5.0 gm/dl Lipase 311 73-393 U/L Urine Color YELLOW Urine Appearance CLEAR CLEAR Urine pH 7.0 4.5-7.5 Urine Specific [place] 1.026 1.000-1.030 Urine Protein 2+ NEG Urine Glucose (UA) 2+ NEG Urine Ketones TRACE NEG Urine Occult Blood 3+ NEG Urine Nitrite NEG NEG Urine Bilirubin NEG NEG Urine Urobilinogen NEG NEG Urine Leukocyte Esterase NEG NEG Urine WBC (Auto) 5-10 0-5 /hpf Urine RBC (Auto) >30 0-4 /hpf Urine Hyaline Casts (Auto) 5-10 0-5 /lpf Urine Epithelial Cells (Auto) >30 0-5 /lpf Urine Bacteria (Auto) NEG NEG Urine Renal Epithelial Cells 0-5 0-5 /lpf Urine Culture: Pending Noncontrast Abdominal/Pelvic CT: Was reviewed by myself and read by the radiologist showing interval placement of the left ureteral stent with resolution of previous obstructive uropathy. Acute on chronic pancreatitis with possible development of 1.4 cm acute peripancreatic fluid collection adjacent to the pancreatic tail. Extensive postsurgical changes of the abdomen. Punctate nonobstructing right sided nephrolithiasis. No bowel obstruction. Small pericardial fluid. Patient was hydrated with normal saline and received 1 mg of Dilaudid IV for pain and 4 mg of Zofran IV for nausea/vomiting. Patient was reassessed multiple times during her stay in the emergency department. Patient's case was reviewed with Dr. Weller; we agreed on diagnostic approach, treatment, disposition and plan. Patient and were educated about today's findings and instructed on her treatment plan; she verbalizes understanding and agreement with this plan. Clinical Impression: Left flank pain. Decision-Making: Initially my differential diagnosis I considered kidney stone, pancreatitis, perforated viscus, splenic injury, and other causes. Disposition: Patient discharged home in stable condition accompanied by her ; prior to departure she was reassessed and subjectively reported that she was pain and symptom-free. Plan: Patient was encouraged to continue her current prescribed medications. Patient was encouraged to follow her family physician in the morning and request follow-up care and treatment for recheck. Patient was encouraged to keep her upcoming appointment with urology next week to remove her stent. Patient was encouraged return the ED for worsening/uncontrolled pain, fevers, uncontrolled vomiting or any new/concerning symptoms.
== END 2017-07-06 19:04 | disposition home or self-care (01) ==
LOC: EDBD 15:18 → C.EDC 15:20
DX: R10.9 Unspecified abdominal pain (principal); E11.9 Type 2 diabetes mellitus without complications; I10 Essential (primary) hypertension; I48.91 Unspecified atrial fibrillation; Z72.0 Tobacco use; Z90.49 Acquired absence of other specified parts of digestive tract; Z90.89 Acquired absence of other organs; Z88.1 Allergy status to other antibiotic agents; Z88.6 Allergy status to analgesic agent; Z88.8 Allergy status to other drugs, medicaments and biological substances; Z91.041 Radiographic dye allergy status; Z79.01 Long term (current) use of anticoagulants; Z79.4 Long term (current) use of insulin; Z79.899 Other long term (current) drug therapy

== ENCOUNTER → 2017-07-11 | Outpatient (CLI) | payer OTHER ==
[~2017-07-11] MED LIST changes: +CITA-294 PO; -CLX/20 PO; -CMD1 PO; -CYAN10005 PO; -DEXT4CHW60 PO; +DILT180C48 PO; +ENOX80IN SQ; -GABA-112 PO; +GABA100C13 PO; +HMLIS SC; -INSU1INJ2 INJ; -LACT1CAP6 PO; +NICO14DI31 TD; -OMEG10007 PO; +OMEG12006 PO; +TAMS0.4C38 PO; -TPRSR/25 PO; +TPRSR/50 PO; +TRAZ100T29 PO; -TRAZ50TA35 PO; -VNTHFA/IN INH; -WLC625 PO
== END | disposition home or self-care (01) ==
LOC: C.LABSPEC 10:00
PROVIDERS: ATTEND Urology
DX: N20.0 Calculus of kidney (principal); R35.0 Frequency of micturition

== ENCOUNTER → 2017-07-24 | Day surgery (SDC) | payer OTHER ==
[2017-07-14 14:33] VITALS: Ht 165.1 cm; Wt 82.1 kg
--- NOTE | 2017-07-14 15:13 | PAT Medication Instructions ---
Service Date Jul 14, 2017. Current Home Medication List Allopurinol (Allopurinol), 100 MG PO QAM Ascorbic Acid (Vitamin C), 1,000 MG PO QDL Cholecalciferol (Vitamin D3), 2 TAB PO QAM Citalopram Hydrobromide (Citalopram), 10 MG PO HS Colestipol Hcl (Colestid), 2 GM PO BID Digoxin (Digox), 125 MCG PO QAM Diltiazem Hcl Coated Beads (Cartia Xt), 1 TAB PO QAM Docusate Sodium (Colace), 100 MG PO BID Fenofibrate (Fenofibrate), 145 MG PO QDD Gabapentin (Neurontin), 100 MG PO TID Insulin Glargine (Lantus Solostar), 44 UNITS SC HS Insulin Human Lispro (Humalog Kwikpen), 20 UNITS SC QDD Insulin Lispro (Human) (Humalog Kwikpen), 22 UNITS SQ BIDM Magnesium Oxide (Mag-Ox), 400 MG PO BID Metoprolol Succinate (Metoprolol Succinate ER), 25 MG PO BIDM Naloxegol Oxalate (Movantik), 12.5 MG PO QPM [place]-3 Fatty Acids ([place] 3), 1,200 MG PO QDD Ondansetron Hcl (Zofran), 4 MG PO PC PRN for Nausea Pancrelipase (Lipase-Protease- (Creon [id number]), 2 CAP PO TIDM Pantoprazole (Pantoprazole Sodium), 40 MG PO QAM Polyethylene Glycol 3350 (Miralax), 17 GM PO DAILY PRN for Constipation Sucralfate (Carafate), 1 GM PO QID PRN for UPSET STOMACH Tamsulosin Hcl (Flomax), 0.4 MG PO QAM Trazodone Hcl (Trazodone), 100 MG PO HS Warfarin Sodium (Coumadin), 3.5 TAB PO HS Medication Instructions For Your Scheduled Surgery -Follow your surgeon's instructions for instructions for: Warfarin Sodium (Coumadin), 3.5 TAB PO HS - Hold the following medications 2 weeks prior to surgery: [place]-3 Fatty Acids ([place] 3), 1,200 MG PO QDD - Hold the following medications 24 hours prior to surgery: Colestipol Hcl (Colestid), 2 GM PO BID Fenofibrate (Fenofibrate), 145 MG PO QDD - Hold the following medications the morning of surgery: Ascorbic Acid (Vitamin C), 1,000 MG PO QDL Cholecalciferol (Vitamin D3), 2 TAB PO QAM Docusate Sodium (Colace), 100 MG PO BID Insulin Lispro (Human) (Humalog Kwikpen), 22 UNITS SQ BIDM Magnesium Oxide (Mag-Ox), 400 MG PO BID Pancrelipase (Lipase-Protease- (Creon 37657), 2 CAP PO TIDM Polyethylene Glycol 3350 (Miralax), 17 GM PO DAILY PRN for Constipation Sucralfate (Carafate), 1 GM PO QID PRN for UPSET STOMACH - Take the following medications the morning of surgery with a sip of water: Allopurinol (Allopurinol), 100 MG PO QAM Digoxin (Digox), 125 MCG PO QAM Diltiazem Hcl Coated Beads (Cartia Xt), 1 TAB PO QAM Gabapentin (Neurontin), 100 MG PO TID Metoprolol Succinate (Metoprolol Succinate ER), 25 MG PO BIDM Ondansetron Hcl (Zofran), 4 MG PO PC PRN for Nausea (if needed) Pantoprazole (Pantoprazole Sodium), 40 MG PO QAM Tamsulosin Hcl (Flomax), 0.4 MG PO QAM - Take the following medications as scheduled the night before surgery: Citalopram Hydrobromide (Citalopram), 10 MG PO HS Docusate Sodium (Colace), 100 MG PO BID Gabapentin (Neurontin), 100 MG PO TID Insulin Glargine (Lantus Solostar), 44 UNITS SC HS Insulin Human Lispro (Humalog Kwikpen), 20 UNITS SC QDD Insulin Lispro (Human) (Humalog Kwikpen), 22 UNITS SQ BIDM (with lunch) Magnesium Oxide (Mag-Ox), 400 MG PO BID Metoprolol Succinate (Metoprolol Succinate ER), 25 MG PO BIDM Ondansetron Hcl (Zofran), 4 MG PO PC PRN for Nausea (if needed) Pancrelipase (Lipase-Protease- (Creon 84290), 2 CAP PO TIDM Polyethylene Glycol 3350 (Miralax), 17 GM PO DAILY PRN for Constipation (if needed) Sucralfate (Carafate), 1 GM PO QID PRN for UPSET STOMACH (if needed) Trazodone Hcl (Trazodone), 100 MG PO HS Naloxegol Oxalate (Movantik), 12.5 MG PO QPM If you have any questions please call us at [phone] or [phone] or [phone]
[~2017-07-24] VITALS: Ht 165.1 cm; Wt 82.1 kg
[~2017-07-24] MED LIST changes: +ATROPINE SULFATE 0.1 MG/ML 5ML SYR IV PRN; +BELLADONNA/OPIUM SUPP 60 MG SUPP PR ONE; +CEFU1TAB35 PO; +CHECK SCOPOLAMINE PATCH PLACEMENT SCH; +Cysto-Conray II 17.2% 250ML BOTTLE ONE; +DEXAMETHASONE SOD INJ 4 MG/ML VIAL ONE; -DILT180C48 PO; -DRGTP25 TOP; +DiphenhydrAMINE HCL 50 MG/ML VIAL ONE; -ENOX80IN SQ; +EpHEDrine SULFATE INJ 50 MG/ML AMP IV PRN; +FENTANYL CITRATE INJ 50 MCG/1 ML 2 ML VIAL ONE; +GENTAMICIN INJ 80 MG in DEXTROSE 5% 100ML 100 ML IV SCH; +HYDROmorphone INJ 2 MG/ML SYR/VIAL ONE; +LACTATED RINGER'S 1000ML 1,000 ML IV SCH; +LIDOCAINE HCL 2% 2 ML VIAL (20MG/ML) ONE; +METOCLOPRAMIDE HCL INJ 5 MG/ML 2 ML VIAL ONE; +MIDAZOLAM HCL 1 MG/ML 2ML VIAL ONE; -NICO14DI31 TD; +NITR1CAP16 PO; +NURSING VERBAL MED ORDER ONE; +ONDANSETRON INJ 2 MG/ML 2 ML VIAL IV PRN; +ONDANSETRON INJ 2 MG/ML 2 ML VIAL ONE; +OXYC-57 PO; +OXYCODONE/ACETAMINOPHEN 5-325 TAB PO PRN; +PHEN-775 PO; +PHENAZOPYRIDINE HCL 200 MG TAB PO PRN; +PROMETHAZINE HCL INJ 6.25 MG in SODIUM CHLORIDE 0.9% 50ML 50 ML IV ONE; +PROPOFOL IV EMULSION 10 MG/ML 20 ML VIAL ONE; +SCOPOLAMINE 1.5 MG TDSY TD ONE
[2017-07-24 07:08] VITALS: BP 106/64; PULSE 85; TEMP 36.5; O2SAT 97
--- NOTE | 2017-07-24 07:28 | History & Physical Bridge Note ---
H&P Re-Evaluation Bridge Note: I have examined the patient, reviewed the History & Physical and in the interval since the performance of the History & Physical I have noted the following changes of clinical significance: Patient for L uscope, cysto, RPG, laser litho, stent exchange. HM
[2017-07-24 07:38] LABS: INR 1.1 (0.9-1.1); PTT PATIENT 24.7 SECONDS (21.0-31.0)
--- NOTE | 2017-07-24 09:33 | [facility] Operative Report ---
Operative Report Operative Date July 24, 2017. Pre-Operative Diagnosis Left Upper Ureteral Stone Post-Operative Diagnosis Left Upper Ureteral Stone Procedure(s) Performed Cystoscopy, Left Retrograde Pyelography, Left Flexible Ureteroscopy, Laser Lithotripsy; Basket Stone Extraction, Ureteral Stent Exchange Surgeon Dr Aby Albert Kiln Repairer Surgeon(s) None Estimated Blood Loss 0CC Findings No significant residual stones after completion of case, good stent position on fluoroscopy Specimens A: Left Renal Stone Fragments for Chemical Analysis Drains Left-sided 6 [place] 26 cm double-J ureteral stent Anesthesia Type General Complication(s) none Disposition no Recovery Room / PACU Indications 61-year-old female with a history of bothersome abdominal pain, persistent despite the placement of a left-sided ureteral stent for an upper ureteral stone. Please see H&P for further details. Patient continues to be tearful and in pain today. I discussed with the patient and her family preoperatively the persistence of her pain unabated by the presence of the stent suggest that it is not of urologic origin. We will proceed with endoscopic management of her stone disease to eliminate this problem in any case. Intravenous gentamicin provided for antibody coverage due to numerous antibiotic allergies. SCDs used for DVT prophylaxis. Description of Procedure Patient was properly identified and brought into the operative suite after identification for proper consent of the chart. General anesthesia with endotracheal the patient was initiated due to a history of reflux and nausea the patient was prepped and draped in standard fashion for this procedure. Full timeout procedure was followed. 22 [place] rigid cystoscope was passed into the bladder under direct visualization was demonstrated some edema around the left ureteral orifice was otherwise unremarkable. No intravesical tumors or papillary lesions are noted. Stent protruding from the left ureteral orifice was grasped, brought up through the meatus and cannulated using a sensor tip wire. This was advanced at the level of the left renal pelvis followed by an open-ended catheter to allow for mild opacification of the collecting system. This demonstrated a dilated left renal collecting system without irregularities or clear stricture. Sensor tip wire was replaced kept until the end of the case as a safety wire. An Amplatz superstiff working wire was used to access the left ureter and renal pelvis and this was followed by a 12/14 35 cm left ureteral access sheath. A video digital ureteroscope was advanced at the level of the left renal pelvis over the working wire which was then removed. Complete pyeloscopy was performed demonstrating no abnormalities within the kidney save for some lower pole stones, many of which were tiny but one of which was larger and consistent with the patient's previous CT scan images. 200 m laser fiber was used to fragment this into a few small pieces which were then grasped using open-ended basket and removed from the patient without resistance or difficulties. These were sent for chemical analysis. Kidney was generously flushed and again evaluated with ureteroscope demonstrating no significant residual stones or abnormalities. Complete exit ureteroscopy including removal of the access sheath to inspect the covered ureter was performed demonstrating no evidence of ureteral stones, tumors, injuries or tears. Cystoscope was backloaded over the safety wire followed by a 6 [place] 26 cm double-J ureteral stent which is been present previously. Full coil is present at the level of the renal pelvis and within the bladder. Bladder was drained and cystoscope was removed. Anesthesia was reversed the patient was transferred to the recovery room in stable condition. Follow-up instructions: Patient will be discharged home with a prescription for nitrofurantoin and Pyridium. Patient noted to have a large number of narcotic prescriptions including several fentanyl patches provided as an outpatient. Will provide 10 tablets of Percocet for postoperative analgesia. I attest to the content of the Intraoperative Record and any orders documented therein. Any exceptions are noted below.
--- NOTE | 2017-07-24 09:36 | Discharge Instructions ---
Discharge Instructions Date of Service July 24, 2017. Admission Reason for Admission: Nephrolithiasis Discharge Discharge Diagnosis / Problem: L proximal ureteral stone s/p uscope Discharge Goals Goal(s): Decrease discomfort, Improve function, Improve disease control, Therapeutic intervention Activity Recommendations Activity Limitations: as noted below Lifting Limitations: no more than 25 pounds, gradually increase as tolerated Exercise/Sports Limitations: rest today, gradually increase as tolerated May Resume Sexual Activity: after follow-up appointment Shower/Bathe: no limitations Driving or Machine Use: resume 1 day after discharge . Instructions / Follow-Up Instructions / Follow-Up Follow-up in office as planned for stent removal with [facility] Xray before visit. Current Hospital Diet Patient's current hospital diet: Discharge Diet Recommended Diet: Regular Diet (good fluid intake) Procedures Procedures Performed: Cystoscopy, Left Retrograde Pyelography, Left Flexible Ureteroscopy, Laser Lithotripsy; Basket Stone Extraction, Ureteral Stent Exchange Pending Studies Studies pending at discharge: yes List of pending studies: Stone analysis Laboratory Results Hemoglobin A1c Test 06/23/17 05:18 Range/Units Estimated Average Glucose 180 mg/dl Hemoglobin A1c 7.9 H 4.5-5.6 % Medical Emergencies . Who to Call and When: Medical Emergencies: If at any time you feel your situation is an emergency, please call 911 immediately. . Non-Emergent Contact Non-Emergency issues call your: Urologist Call Non-Emergent contact if: you have a fever, temperature is above 101, your pain is not controlled, your pain is worsening, your pain is unusual for you, your pain is concerning you, you have any medication questions . . "Provider Documentation" section prepared by [employer] Albert. . [place] Drug Monitoring Program Search Results: patient reviewed within database, see additional documentation (numerous narcotic Rx including regular fentanyl patches - postop Rx for #10 provided.)
--- NOTE | 2017-07-24 09:51 | DIAGNOSTIC IMAGING REPORT ---
RETROGRADE INCLUDES KUB CLINICAL HISTORY: LEFT CYSTOSCOPY, LASER LITHO, STENT EXCHANGE COMPARISON STUDY: CT scan dated 07/06/2017 FINDINGS: 2 intraoperative fluoroscopic spot images are provided for interpretation. Image #1 reveals a ureteral catheter just distal to the ureteropelvic junction. There is left-sided hydronephrosis.] #2 demonstrates the proximal pigtail of a left-sided nephroureteral stent. 30 seconds of fluoroscopic time was utilized. 2 fluoroscopic spot images were acquired. IMPRESSION: Left-sided hydronephrosis. A left-sided nephroureteral stent was placed. Electronically signed by: Luis Davis M.D. 07/24/2017 9:49 AM Dictated Date/Time: 07/24/2017 9:48 AM
[2017-07-24] MEDS: FENTANYL CITRATE INJ 50 MCG/1 ML 2 ML VIAL IV PRN ×4 (10:06→10:32)
[2017-07-24 11:05] VITALS: BP 101/59; PULSE 90; TEMP 36.7; O2SAT 94
--- NOTE | 2017-07-24 11:13 | Anesthesiology Progress Note ---
Anesthesia Post Op Note Date & Time July 24, 2017 at 11:13 Vital Signs Pain Intensity: 8 Vital Signs Past 12 Hours Date Time Temp Pulse Resp B/P (MAP) Pulse Ox O2 Delivery O2 Flow Rate FiO2 07/24/17 10:58 92 21 07/24/17 10:58 89 21 94 07/24/17 10:55 104/64 07/24/17 10:53 95 18 07/24/17 10:53 95 18 94 07/24/17 10:52 104/63 07/24/17 10:51 93 21 93 07/24/17 10:51 92 21 07/24/17 10:47 36.2 95 Room Air 07/24/17 10:46 98 26 93 07/24/17 10:46 87 26 07/24/17 10:45 94/57 07/24/17 10:41 85 16 07/24/17 10:41 88 16 95 07/24/17 10:40 97/58 07/24/17 10:37 95 14 07/24/17 10:37 93 14 93 07/24/17 10:35 99/68 07/24/17 10:32 93 19 93 07/24/17 10:32 90 19 07/24/17 10:30 107/69 07/24/17 10:27 88 18 94 07/24/17 10:27 88 18 07/24/17 10:25 106/67 07/24/17 10:22 90 21 94 07/24/17 10:22 90 21 07/24/17 10:20 106/66 07/24/17 10:17 88 19 07/24/17 10:17 86 19 95 07/24/17 10:15 113/70 07/24/17 10:12 80 16 07/24/17 10:12 76 16 98 07/24/17 10:10 118/71 07/24/17 10:07 102 18 100 07/24/17 10:07 105 18 07/24/17 10:05 117/74 07/24/17 10:02 103 17 07/24/17 10:02 99 17 100 07/24/17 10:00 122/71 07/24/17 09:57 91 18 100 07/24/17 09:57 93 18 07/24/17 09:55 111/69 07/24/17 09:52 91 18 100 07/24/17 09:52 95 18 07/24/17 09:50 112/60 07/24/17 09:47 98 19 100 07/24/17 09:47 97 19 07/24/17 09:45 114/57 07/24/17 09:42 98 19 118/61 100 07/24/17 09:42 100 19 07/24/17 09:42 36.2 97 16 118/61 99 Oxymask 15 07/24/17 07:08 36.5 85 20 106/64 (78) 97 Room Air Notes Mental Status: alert / awake / arousable, participated in evaluation Pt Amnestic to Procedure: Yes Nausea / Vomiting: adequately controlled Pain: adequately controlled Airway Patency, RR, SpO2: stable & adequate BP & HR: stable & adequate Hydration State: stable & adequate Anesthetic Complications: no major complications apparent
[2017-07-24 11:35] VITALS: BP 106/55; PULSE 102; TEMP 36.7; O2SAT 99
== END | disposition home or self-care (01) ==
LOC: C.ACU 06:29
PROVIDERS: ATTEND Urology
DX: N20.1 Calculus of ureter (principal); R35.0 Frequency of micturition; J44.9 Chronic obstructive pulmonary disease, unspecified; E11.9 Type 2 diabetes mellitus without complications; E03.9 Hypothyroidism, unspecified; I25.10 Atherosclerotic heart disease of native coronary artery without angina pectoris; I10 Essential (primary) hypertension; F41.9 Anxiety disorder, unspecified; E78.5 Hyperlipidemia, unspecified; F32.9 Major depressive disorder, single episode, unspecified; K85.90 Acute pancreatitis without necrosis or infection, unspecified; F17.210 Nicotine dependence, cigarettes, uncomplicated; M10.9 Gout, unspecified; E66.9 Obesity, unspecified; K21.9 Gastro-esophageal reflux disease without esophagitis; E78.00 Pure hypercholesterolemia, unspecified; Z86.73 Personal history of transient ischemic attack (TIA), and cerebral infarction without residual deficits; Z80.6 Family history of leukemia; Z82.49 Family history of ischemic heart disease and other diseases of the circulatory system; Z79.899 Other long term (current) drug therapy; Z88.1 Allergy status to other antibiotic agents; Z91.041 Radiographic dye allergy status; Z91.040 Latex allergy status; Z88.5 Allergy status to narcotic agent

== ENCOUNTER → 2017-08-08 | Outpatient (CLI) | payer OTHER ==
[~2017-08-08] MED LIST changes: -ATROPINE SULFATE 0.1 MG/ML 5ML SYR IV PRN; -BELLADONNA/OPIUM SUPP 60 MG SUPP PR ONE; -CHECK SCOPOLAMINE PATCH PLACEMENT SCH; -Cysto-Conray II 17.2% 250ML BOTTLE ONE; -DEXAMETHASONE SOD INJ 4 MG/ML VIAL ONE; -DiphenhydrAMINE HCL 50 MG/ML VIAL ONE; -EpHEDrine SULFATE INJ 50 MG/ML AMP IV PRN; -FENTANYL CITRATE INJ 50 MCG/1 ML 2 ML VIAL ONE; -GENTAMICIN INJ 80 MG in DEXTROSE 5% 100ML 100 ML IV SCH; -HYDROmorphone INJ 2 MG/ML SYR/VIAL ONE; -LACTATED RINGER'S 1000ML 1,000 ML IV SCH; -LIDOCAINE HCL 2% 2 ML VIAL (20MG/ML) ONE; -METOCLOPRAMIDE HCL INJ 5 MG/ML 2 ML VIAL ONE; -MIDAZOLAM HCL 1 MG/ML 2ML VIAL ONE; -NITR1CAP16 PO; -NURSING VERBAL MED ORDER ONE; -ONDANSETRON INJ 2 MG/ML 2 ML VIAL IV PRN; -ONDANSETRON INJ 2 MG/ML 2 ML VIAL ONE; -OXYCODONE/ACETAMINOPHEN 5-325 TAB PO PRN; -PHEN-775 PO; -PHENAZOPYRIDINE HCL 200 MG TAB PO PRN; -PROMETHAZINE HCL INJ 6.25 MG in SODIUM CHLORIDE 0.9% 50ML 50 ML IV ONE; -PROPOFOL IV EMULSION 10 MG/ML 20 ML VIAL ONE; -SCOPOLAMINE 1.5 MG TDSY TD ONE
== END | disposition home or self-care (01) ==
LOC: C.LABSPEC 11:20
PROVIDERS: ATTEND Urology
DX: N20.2 Calculus of kidney with calculus of ureter (principal)

== ENCOUNTER 2018-03-12 05:56 | Observation (INO) ==
[2018-03-12] MEDS ORDERED: NITROGLYCERIN SL 0.4 MG/TAB TAB SL STA (06:04)
[2018-03-12] MEDS ORDERED: PROCHLORPERAZINE 5 MG in SYRINGE 4 ML IV ONE (06:10)
[2018-03-12] MEDS ORDERED: DiphenhydrAMINE HCL 50 MG/ML VIAL IV STA (06:10)
--- NOTE | 2018-03-12 06:19 | Emergency Department Note ---
ED Provider Note Name: Lisa Torres Age: 62F Arrives Via: POV Informant: Pt, CC: Chest Pain HPI: 62 female arrives for evaluation of chest pain. Patient notes she was awoken by beep/flash of light on her Pacemaker "box" in her bedroom. She did not know what this meant. She stated when she woke up she noticed she was having left chest pain radiating to arm. Associated with headache, shortness of breath, weakness, nausea, heart palpitations. She told who gave her ASA and took her to ED. She had severe episodes of passing out in route here. Her notes he had to slap her several times to wake up. She denies having chest pain like this before. She denies having headache this bad before. history of Afib with pacer and multiple caths previously without stenting. She has history of brain aneurysm post clipping. She states she felt fine when she went to bed. ROS: See above HPI for pertinent positives & negatives. A total of 10 systems reviewed and were otherwise negative. Past Medical History: Anxiety, Depression, Migraines, Stroke, CAD, HTN, Brain Aneurysm, Constipation, Pancreatic Cancer, Renal Stones, Diverticulitis, Diabetes, Afib Past Surgical History: Brain Aneurysm Clipping, Whipple?, Pacemaker, Cholecystectomy, Appendectomy Family History: Mother CHF/Stroke, Father Leukemia Social History: Lives wit , retired, previous smoker Home Medications: Extensive... see medical record Allergies Extensive... see attached medical record Physical: Vitals: BP 128/77, P 71, R 22, T 36.8, O2 99% Exam: GENERAL: Patient is very upset, crying and anxious appearing. EYES: No scleral icterus, unremarkable pupils. ENT: Mucous membranes moist, no nasal congestion. NECK: No masses appreciated, no meningismus, trachea is midline. RESPIRATORY: No dyspnea. Clear to auscultation and equal bilaterally. No wheeze , no rhonchi. CARDIOVASCULAR: Pacemaker left upper chest without swelling nor erythema. Regular rate and rhythm. No murmurs, rubs, gallops appreciated. GASTROINTESTINAL: Abdomen soft, non-tender, no peritonitis. Bowel sounds positive. No masses appreciated. BACK: No midline tenderness, no CVA tenderness EXTREMITIES: Normal motion all extremities, no cyanosis, no edema. NEUROLOGIC: Alert and oriented, no acute motor or sensory deficits, no focal weakness, cranial nerves grossly intact. SKIN: No rash, no jaundice, no diaphoresis. ED Course: Prior Medical Record, Triage/Nursing Notes, Medications, Allergies reviewed by Me Vital Signs: reviewed and remarkable for wnl Labs: Reviewed and remarkable for cbc, bmp, lft, trop, negative Interventions: Saline Lock, Benadryl 50mg IV, Compazine 5mg IV, SLNTG, Asa 324mg PO Imaging: X ray results are stated below per my interpretation: Chest: 1 view: No infiltrate, no effusion, normal cardiac border. Pacemaker left upper chest wires intact. Similar to CXR 02/28/18. Radiologist interpretation reviewed by me reveals negative CT head for acute findings EKG: Per My Interpretation: Ventricular Paced Rhythm 88bpm with flipped lateral T waves and underlying afib. No STEMI. EKG similar to 02/28/2018 EKG other than mildly deepened Ts. Consults: Dr Alba of [place] Hospitalist Reassessments/Times: Multiple times with improvement in pain. Notes zofran works well for her nausea and asking for some. Blood pressure: Normal. No Referral necessary Disposition: Hospitalist evaluation. Differentials: ACS, Stroke, ICH, PE, Dissection, Arrythmia amongst other pathologies. Medical Decision Makin yr old female with extensive PMH arrives with acute left chest pain, headache , syncope, and nausea amongst other symptoms. CT head is negative. Symptoms resolved with SLNTG, Compazine, Benadryl, ASA, and Zofran. EKG is paced. [employer] interrogation without acute arrythmia though tech will come in and evaluate further. There are mildly deepened inverted T waves compared to previous EKGs though no stemi. Initial Trop is negative. With her history will discuss with hospitalist for further monitoring/management. Impression: Left Sided Chest Pain Syncope Headache Michael Frank MD Impression & Plan Left sided chest pain, Syncope, Headache Past Med/Surg History Social History Current Living Situation: Spouse current occupational status: retired and disabled current occupation: cleaned ooms at a resort stopping by age 39 Feels Safe at Home: Yes Smoking Status: Current every day smoker Tobacco Type: cigarettes Cigarettes per Day: 1/2 pack Hx Alcohol Use: No Beliefs That Will Affect Care: None Preferred Language: Guatemalan Results & Data Vital Signs Vital Signs - 24 hr 03/12/18 06:02 03/12/18 07:00 Temperature 36.8 C Temperature Source Oral Sepsis Recent Fever Within 48 Hours No Sepsis New/Unexplained Change in Mental Status No Sepsis Action Taken by Nursing No Action Required Pulse Rate 71 71 Respiratory Rate 22 22 Respiratory Effort / Characteristics Non-Labored Respiratory Depth Normal Blood Pressure 128/77 117/79 Blood Pressure Mean 94 91 Pulse Oximetry 99 96 Oxygen Delivery Method Room Air Laboratory Data Result diagrams: 03/12/18 06:10 03/12/18 06:10 Lab Results 03/12/18 03/12/18 03/12/18 Range/Units 06:10 06:10 06:10 WBC 6.87 (4.8-10.8) K/uL RBC 4.74 (4.2-5.4) M/uL Hgb 14.2 (12.0-16.0) g/dL POC Hgb (12.0-16.0) g/dl Hct 43.2 (37-47) % POC Hct (37-47) % MCV 91.1 (80-100) fL MCH 30.0 (25-34) pg MCHC 32.9 (32-36) g/dL RDW Std Deviation 44.4 (36.4-46.3) fL RDW Coeff of Evan 13.5 (11.5-14.5) % Plt Count 205 (130-400) K/uL MPV 10.6 H (7.4-10.4) fL Immature Gran % (Auto) 0.3 % Neut % (Auto) 40.3 % Lymph % (Auto) 43.8 % Potter % (Auto) 12.5 % Eos % (Auto) 2.5 % Baso % (Auto) 0.6 % Immature Gran # (Auto) 0.02 (0.00-0.02) K/uL Neut # (Auto) 2.77 (1.4-6.5) K/uL Lymph # (Auto) 3.01 (1.2-3.4) K/uL Potter # (Auto) 0.86 H (0.11-0.59) K/uL Eos # (Auto) 0.17 (0-0.5) K/uL Baso # (Auto) 0.04 (0-0.2) K/uL PT 10.7 (9.0-12.0) Seconds INR 1.1 (0.9-1.1) POC Sodium (135-144) mEq/L Sodium 143 (136-145) mmol/L POC Potassium (3.3-5.0) mEq/L Potassium 3.7 (3.5-5.1) mmol/L POC Chloride (101-112) mEq/L Chloride 111 H (98-107) mmol/L Carbon Dioxide 24 (21-32) mmol/L POC Total CO2 (24-31) mEq/l Anion Gap 7.0 (3-11) POC Anion Gap (16-25) mmol/L POC BUN (7-18) mg/dl BUN 10 (7-18) mg/dl Creatinine 0.72 (0.6-1.2) mg/dl POC Creatinine (0.6-1.3) mg/dl Est Cr Clr Drug Dosing 94.4 ml/min Est GFR ( Amer) 103.3 Est GFR (Non-Af Amer) 89.1 BUN/Creatinine Ratio 14.5 (10-20) Glucose 166 H (70-99) mg/dl POC Glucose (other) (70-99) mg/dl Calcium 9.9 (8.5-10.1) mg/dl POC Ioniz Calcium Estuardo (1.12-1.32) mmol/l POC Troponin I (0-0.045) ng/ml Troponin I < 0.015 (0-0.045) ng/ml 03/12/18 03/12/18 Range/Units 06:10 06:12 WBC (4.8-10.8) K/uL RBC (4.2-5.4) M/uL Hgb (12.0-16.0) g/dL POC Hgb 14.6 (12.0-16.0) g/dl Hct (37-47) % POC Hct 43 (37-47) % MCV (80-100) fL MCH (25-34) pg MCHC (32-36) g/dL RDW Std Deviation (36.4-46.3) fL RDW Coeff of Evan (11.5-14.5) % Plt Count (130-400) K/uL MPV (7.4-10.4) fL Immature Gran % (Auto) % Neut % (Auto) % Lymph % (Auto) % Potter % (Auto) % Eos % (Auto) % Baso % (Auto) % Immature Gran # (Auto) (0.00-0.02) K/uL Neut # (Auto) (1.4-6.5) K/uL Lymph # (Auto) (1.2-3.4) K/uL Potter # (Auto) (0.11-0.59) K/uL Eos # (Auto) (0-0.5) K/uL Baso # (Auto) (0-0.2) K/uL PT (9.0-12.0) Seconds INR (0.9-1.1) POC Sodium 143 (135-144) mEq/L Sodium (136-145) mmol/L POC Potassium 3.7 (3.3-5.0) mEq/L Potassium (3.5-5.1) mmol/L POC Chloride 109 (101-112) mEq/L Chloride (98-107) mmol/L Carbon Dioxide (21-32) mmol/L POC Total CO2 22 L (24-31) mEq/l Anion Gap (3-11) POC Anion Gap 17.0 (16-25) mmol/L POC BUN 9 (7-18) mg/dl BUN (7-18) mg/dl Creatinine (0.6-1.2) mg/dl POC Creatinine 0.6 (0.6-1.3) mg/dl Est Cr Clr Drug Dosing ml/min Est GFR ( Amer) Est GFR (Non-Af Amer) BUN/Creatinine Ratio (10-20) Glucose (70-99) mg/dl POC Glucose (other) 165 H (70-99) mg/dl Calcium (8.5-10.1) mg/dl POC Ioniz Calcium Estuardo 1.31 (1.12-1.32) mmol/l POC Troponin I < 0.03 (0-0.045) ng/ml Troponin I (0-0.045) ng/ml Administered Medications Discontinued Medications Aspirin (Aspirin) 324 mg PO NOW STA Stop: 03/12/18 06:33 Last Admin: 03/12/18 06:44 Dose: 324 mg Diphenhydramine HCl (Benadryl) 50 mg IV NOW STA Stop: 03/12/18 06:11 Last Admin: 03/12/18 06:37 Dose: 50 mg Prochlorperazine 5 mg/ Syringe 5 mls @ 5 mls/min IV ONE ONE Stop: 03/12/18 06:11 Last Admin: 03/12/18 06:37 Dose: 5 mls/min Nitroglycerin (Nitrostat) 0.4 mg SL NOW STA Stop: 03/12/18 06:05 Last Admin: 03/12/18 06:13 Dose: 0.4 mg Ondansetron HCl (Zofran) 4 mg IV NOW STA Stop: 03/12/18 07:01 Last Admin: 03/12/18 07:14 Dose: 4 mg Prochlorperazine (Compazine) Confirm Administered Dose 10 mg .ROUTE .STK-MED ONE Stop: 03/12/18 06:22 Last Admin: 03/12/18 06:45 Dose: Not Given Discharge Plan Visit Data Chief Complaint: Chest Pain Stated Complaint: CHEST PAIN ED Provider: Michael Frank Discharge Problem: Left sided chest pain, Syncope, Headache Forms Stand Alone Forms: Call Back Authorization, [facility] Prescriptions Prescriptions: No Action sucralfate [Carafate] 1 gram Tablet 1 g PO BID RF: 0 citalopram 20 mg tablet 20 mg PO HS RF: 0 magnesium oxide 400 mg (241.3 mg magnesium) Tablet 400 mg PO AMHS RF: 0 pantoprazole 40 mg Tablet,Delayed Release (Dr/Ec) 40 mg PO BID RF: 0 docusate sodium 100 mg Capsule 100 mg PO BID RF: 0 gabapentin 100 mg Capsule 100 mg PO TID RF: 0 fenofibrate nanocrystallized 145 mg tablet 145 mg PO QAM RF: 0 apixaban 5 mg tablet 5 mg PO BID RF: 0 aspirin [Ecotrin Low Strength] 81 mg Tablet,Delayed Release (Dr/Ec) 81 mg PO QAM Qty: 30 RF: 0 topiramate [Topamax] 25 mg Tablet 25 mg PO HS RF: 0 pravastatin 20 mg tablet 20 mg PO QPM RF: 0 insulin glargine [Basaglar KwikPen U-100 Insulin] 100 unit/mL (3 mL) insulin pen 44 units subcut HS RF: 0 trazodone 50 mg tablet 150 mg PO HS RF: 0 [id number]-mnekdnt [Creon] 24,000-76,000 -120,000 unit capsule,delayed release(DR/EC) 2 cap PO WM RF: 0 ondansetron HCl [Zofran] 4 mg tablet 4 mg PO TIDM RF: 0 cinacalcet [Sensipar] 30 mg tablet 30 mg PO QPM RF: 0 cyanocobalamin (vitamin B-12) [Vitamin B-12] 1,000 mcg Tablet 1,000 mcg PO QAM RF: 0 ascorbic acid (vitamin C) 500 mg Tablet 500 mg PO QPM RF: 0 cholecalciferol (vitamin D3) [Vitamin D3] 5,000 unit Tablet 5,000 unit PO QAM RF: 0 insulin lispro [Admelog SoloStar U-100 Insulin] 100 unit/mL insulin pen 16 unit subcut QAM RF: 0 insulin lispro [Admelog SoloStar U-100 Insulin] 100 unit/mL insulin pen 24 unit subcut BIDM RF: 0 omega-3 fatty acids-fish oil [Fish Oil] 360-1,200 mg Capsule 1 cap PO QPM RF: 0
[2018-03-12 06:21] LABS: Basophils # (auto) 0.04 K/uL (0-0.2); Basophils % (auto) 0.6 %; Eosinophils # (auto) 0.17 K/uL (0-0.5); Eosinophils % (auto) 2.5 %; Hematocrit (blood only) 43.2 % (37-47); Hemoglobin 14.2 g/dL (12.0-16.0); Immature Granulocytes # (auto) 0.02 K/uL (0.00-0.02); Immature Granulocytes % (auto) 0.3 %; Lymphocytes # (auto) 3.01 K/uL (1.2-3.4); Lymphocytes % (auto) 43.8 %; Mean Corpuscular Hgb Conc 32.9 g/dL (32-36); Mean Corpuscular Volume 91.1 fL (80-100); Mean Platelet Volume 10.6 fL (7.4-10.4); Monocytes # (auto) 0.86 K/uL (0.11-0.59); Monocytes % (auto) 12.5 %; Neutrophils # (auto) 2.77 K/uL (1.4-6.5); Neutrophils % (auto) 40.3 %; Platelet Count 205 K/uL (130-400); RDW Coefficient of Variation 13.5 % (11.5-14.5); RDW Standard Deviation 44.4 fL (36.4-46.3); Red Blood Count 4.74 M/uL (4.2-5.4); White Blood Count 6.87 K/uL (4.8-10.8)
[2018-03-12] MEDS ORDERED: PROCHLORPERAZINE 5 MG/ML 2 ML VIAL ONE (06:21)
[2018-03-12 06:25] LABS: iSTAT Hemoglobin 14.6 g/dl (12.0-16.0); iSTAT Ionized Calcium 1.31 mmol/l (1.12-1.32)
[2018-03-12] MEDS ORDERED: ASPIRIN CHEW 324 MG PO STA (06:32)
[2018-03-12 06:36] LABS: BUN Creatinine Ratio 14.5 (10-20); Blood Urea Nitrogen 10 mg/dl (7-18); Calcium 9.9 mg/dl (8.5-10.1); Carbon Dioxide 24 mmol/L (21-32); Chloride 111 mmol/L (98-107); Creatinine Clr Calc Pharmacy 94.4 ml/min; Est GFR (African American) 103.3; Est GFR (Non-African American) 89.1; Glucose 166 mg/dl (70-99); Potassium 3.7 mmol/L (3.5-5.1); Sodium 143 mmol/L (136-145)
--- NOTE | 2018-03-12 06:38 | CT Scan Report ---
CT head/brain wo con CLINICAL HISTORY: 62 years-old Female with acute headache. Acute headache with blurry vision TECHNIQUE: Multiple axial CT images of the head were obtained without contrast. A dose lowering tech nique was utilized adhering to the principles of ALARA. CT DOSE: 537.48 mGy.cm COMPARISON: CT head 02/17/2018. FINDINGS: No acute intracranial hemorrhage, midline shift, intracranial mass, hydrocephalus, territorial ischem ia or abnormal extra-axial collection. Mild atrophy with chronic microvascular ischemic changes. Stre ak artifact from metallic clips about the right sylvian cistern cistern limits evaluation of the righ t middle cranial fossa. Cerebral vascular calcifications are noted. The calvarium is intact. Postcraniotomy changes noted about the right convexity. Mastoid air cells ar e clear. 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 Remaining paranasal sinuses are generally clear. IMPRESSION: No acute intracranial abnormality. The above report was generated using voice recognition software. It may contain grammatical, syntax o r spelling errors. Electronically signed by: Michel Garcia M.D. 03/12/2018 6:37 AM
[2018-03-12 06:40] LABS: Troponin I < 0.015 ng/ml (0-0.045)
[2018-03-12 06:42] LABS: INR 1.1 (0.9-1.1); Prothrombin Time 10.7 Seconds (9.0-12.0)
--- NOTE | 2018-03-12 06:49 | XRay Report ---
XR chest 1V portable CLINICAL HISTORY: Difficult chest pain COMPARISON STUDY: 02/17/2018 FINDINGS: The heart remains normal in size. There is a left subclavian dual-chamber central venous pa cemaker. There is no acute parenchymal consolidation. There is no failure. There is mild chronic basi lar interstitial thickening.[ IMPRESSION: No active disease in the chest. Electronically signed by: Luis Davis M.D. 03/12/2018 6:48 AM
[2018-03-12] MEDS ORDERED: ONDANSETRON INJ 2 MG/ML 2 ML VIAL IV STA (07:00)
[2018-03-12] MEDS ORDERED: MoRPHine SULFATE 2 MG/ML CARP IV PRN (09:30)
[2018-03-12] MEDS ORDERED: DOCUSATE SODIUM 100 MG CAP PO SCH (09:30)
[2018-03-12] MEDS ORDERED: ACETAMINOPHEN 325 MG TAB PO PRN (09:30)
[2018-03-12] MEDS ORDERED: APIXABAN 5 MG TABLET PO SCH (09:30)
[2018-03-12] MEDS ORDERED: SUCRALFATE 1 GM TAB PO SCH (09:30)
[2018-03-12] MEDS ORDERED: ONDANSETRON INJ 2 MG/ML 2 ML VIAL IV PRN (09:30)
[2018-03-12] MEDS ORDERED: GLUCOSE 40% GEL 15 GM TUBE PO PRN (09:30)
[2018-03-12] MEDS ORDERED: GABAPENTIN 100 MG CAP PO SCH (09:30)
[2018-03-12] MEDS ORDERED: CARBOHYDRATES FOR HYPOGLYCEMIA PO PRN (09:30)
[2018-03-12] MEDS ORDERED: ASPIRIN 81 MG ECTAB PO SCH (09:30)
[2018-03-12] MEDS ORDERED: GLUCAGON FOR INJ 1 MG VIAL SQ PRN (09:30)
[2018-03-12] MEDS ORDERED: DEXTROSE 50% 50 ML SYRINGE IV PRN (09:30)
[2018-03-12] MEDS ORDERED: GLUCOSE 10 TABS/TUBE PO PRN (09:30)
[2018-03-12] MEDS ORDERED: MAGNESIUM OXIDE 400 MG TAB PO SCH (09:30)
[2018-03-12] MEDS ORDERED: PANTOprazole 40 MG TAB PO SCH (09:30)
[2018-03-12] MEDS ORDERED: INSULIN ASPART 100 UNITS/ML 3 ML PEN SC SCH (11:30)
[2018-03-12] MEDS ORDERED: ONDANSETRON 4 MG TAB PO SCH (12:00)
[2018-03-12] MEDS ORDERED: PNEUMOCOCCAL ADMINISTRATION CHARGE ONE (12:15)
[2018-03-12] MEDS ORDERED: INFLUENZA ADMINISTRATION CHARGE ONE (12:15)
[2018-03-12] MEDS ORDERED: INFLUENZA VIRUS QUAD VACCINE 0.5 ML SYR IM ONE (12:15)
[2018-03-12] MEDS ORDERED: PNEUMOCOCCAL POLYSACCHARIDES 25 MCG/0.5 ML VIAL/SYR IM ONE (12:15)
--- NOTE | 2018-03-12 12:23 | History & Physical Report ---
Date of Service March 12, 2018 Assessment & Plan (1) Left sided chest pain: Patient's chest pain was in the conjunction with fairly reasonable anxiety attack. It is difficult to interpret her EKG given its paced status. Patient's initial troponin was unremarkable repeat troponin troponin as mentioned and make a decision based upon the second value (2) Syncope: This variable consciousness was volunteered by the family and the way and the patient herself refutes this. Certainly her CT scan was unremarkable (3) Afib: Patient is with the paced rhythm with underlying atrial fibrillation, she typically is anticoagulated with apixaban she continues low-dose aspirin and with her pacing is rate controlled (4) Diabetes: Patient did not take her morning dose of insulin. She typically takes Lantus 44 units at night then short acting insulin 16 units with breakfast and 2400 units with lunch and supper will maintain a carbohydrate conscious diet (5) DVT prophylaxis: Apixaban will be used for DVT prevention History of Present Illness Primary Care Provider: Michael Sepulveda Patient presented with severe shortness of breath and some chest discomfort after having an episode where her pacemaker check machine made an alarm which she was not used to. The patient reportedly had some variable periods of decreased responsiveness en route to our hospital with her family. The emergency room physician says that she was extremely anxious when she presented she is calm down quite a bit from that point. Her evaluation in the ER revealed negative serologies for any acute coronary event, her EKG shows no acute changes but is a paced rhythm, CT scan of her head (she is a history of aneurysm clipping) is unremarkable for change in chest x-ray is negative. Given her cardiovascular history it is prudent to keep her for observation she is agreeable we will repeat a troponin in 6 hours and reevaluate Allergies Allergy/AdvReac Type Severity Reaction Status Date / Time Iodinated Contrast- Oral and Allergy Severe HIVES, Verified 03/12/18 07:09 IV Dye AIRWAY SWELLS FROM CT DYE iodine Allergy Severe airway Verified 02/13/18 17:20 swells shut amoxicillin Allergy Intermediate RASH Verified 02/13/18 17:20 ceftriaxone Allergy Intermediate RASH Verified 02/13/18 17:20 mivacurium Allergy Intermediate RASH Verified 02/13/18 17:20 adhesive Allergy Mild RASH AND Verified 02/13/18 17:20 SORE SKIN FROM TAPE ADHESIVES atorvastatin Allergy Unknown RASH Verified 03/12/18 07:09 Bactrim Allergy Unknown UNKNOWN Verified 07/24/17 06:56 isopropyl alcohol Allergy Unknown RASH Verified 03/12/18 07:09 lemon Allergy Unknown RASH Verified 03/12/18 07:09 lorazepam Allergy Unknown RASH Verified 02/13/18 17:20 morphine Allergy Unknown stops heart Verified 03/12/18 07:09 rosuvastatin Allergy Unknown RASH Verified 03/12/18 07:09 shellfish derived Allergy Unknown AIRWAY Verified 03/12/18 07:09 SHUTS sulfamethoxazole Allergy Unknown UNKNOWN Verified 03/12/18 07:09 trimethoprim Allergy Unknown UNKNOWN Verified 03/12/18 07:09 azithromycin [From Zithromax] Allergy Unknown Verified 03/12/18 11:01 latex Allergy Rash Verified 03/12/18 11:01 metformin Allergy Unknown Verified 03/12/18 11:01 Cipro AdvReac Unknown INTERFERES Verified 07/24/17 06:56 WITH COUMADIN ciprofloxacin AdvReac Unknown INTERFERES Verified 03/12/18 07:09 WITH COUMADIN ezetimibe AdvReac Unknown RAPID Verified 03/12/18 07:09 HEART BEAT gemfibrozil AdvReac Unknown MYALGIAS Verified 03/12/18 07:09 lovastatin AdvReac Unknown MYALGIAS Verified 03/12/18 07:09 tramadol AdvReac Unknown CHEST Verified 03/12/18 07:09 TIGHTNESS Home Medications Home Medications Medication Instructions Recorded Confirmed Type apixaban 5 mg PO BID 12/10/17 03/12/18 History citalopram 20 mg PO HS 12/10/17 03/12/18 History docusate sodium 100 mg PO BID 12/10/17 03/12/18 History fenofibrate nanocrystallized 145 mg PO QAM 12/10/17 03/12/18 History gabapentin 100 mg PO TID 12/10/17 03/12/18 History magnesium oxide 400 mg PO AMHS 12/10/17 03/12/18 History pantoprazole 40 mg PO BID 12/10/17 03/12/18 History sucralfate [Carafate] 1 g PO BID 12/10/17 03/12/18 History aspirin [Ecotrin Low Strength] 81 mg PO QAM #30 tab 12/11/17 03/12/18 Rx trazodone 150 mg PO HS 01/06/18 03/12/18 History pravastatin 20 mg PO QPM 01/21/18 03/12/18 History topiramate [Topamax] 25 mg PO HS 01/21/18 03/12/18 History insulin glargine [Basaglar KwikPen 44 units SUBCUT HS 02/04/18 03/12/18 History U-100 Insulin] ascorbic acid (vitamin C) 500 mg PO QPM 03/12/18 03/12/18 History cholecalciferol (vitamin D3) 5,000 unit PO QAM 03/12/18 03/12/18 History [Vitamin D3] cinacalcet [Sensipar] 30 mg PO QPM 03/12/18 03/12/18 History cyanocobalamin (vitamin B-12) 1,000 mcg PO QAM 03/12/18 03/12/18 History [Vitamin B-12] insulin lispro [Admelog SoloStar 16 unit SUBCUT QAM 03/12/18 03/12/18 History U-100 Insulin] insulin lispro [Admelog SoloStar 24 unit SUBCUT BIDM 03/12/18 03/12/18 History U-100 Insulin] [id number] [Creon] 2 cap PO WM 03/12/18 03/12/18 History omega-3 fatty acids-fish oil [Fish 1 cap PO QPM 03/12/18 03/12/18 History Oil] ondansetron HCl [Zofran] 4 mg PO TIDM 03/12/18 03/12/18 History Past Med/Surg History Medical History Heart disease (Chronic) HTN (hypertension) (Chronic) Aneurysm (Chronic) pt reportedly had cerebral aneurysm clipping in 1998 in [place] A-fib (Chronic) Diabetes Acute left-sided weakness Depression with anxiety Patient has some underlying anxiety and depression which is fairly well controlled with current dose of citalopram. I see no need for additional changes in this medicine at this time. Overall, I spent a total of 90 minutes with this case including records review , review of films, evaluation the patient at bedside and discussion of the case with the patient, clinical staff present, and Dr. Rust, including differential diagnosis and treatment options. 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 There is no need currently for additional neurologic testing or treatment for this problem, other than to control glucose as much as possible. H/O pancreatic cancer Migraine headache without aura Patient has significant migrainous type headache and her entire event may be a complicated migraine. I would treat her headache without anti-inflammatory agents but otherwise any general pain reliever or even sumatriptan would be reasonable. Pancreatitis, recurrent Surgical History Hx of cholecystectomy (Resolved) Hx of appendectomy (Resolved) History of cerebral aneurysm repair Apparently she had a right-sided cerebral aneurysm repair in 1998. I have no information regarding this but it is a stable problem. Social History Current Living Situation: Spouse current occupational status: retired and disabled current occupation: cleaned ooms at a resort stopping by age 39 Other Information That Helps Us Care for You: No Feels Safe at Home: Yes Safety Concerns: Feels Safe At This Time Smoking Status: Current every day smoker Tobacco Type: cigarettes Hx Alcohol Use: No Hx Substance Use: No Beliefs That Will Affect Care: None Preferred Language: Chadian Communication Ability: Effective Emergency Management System Director Required: No Review of Systems ROS: well nourished well developed. No double vision blurry vision No problems with speech or swallowing Patient has some mild chest pain on presentation which is since resolved No Wheezing or breathing issues No abdominal pain nausea vomiting diarrhea changes in appetite or weight No burning urine urine frequency or changes in color No focal joint pain or muscle pain No skin rashes or oral lesions No unusual bruising or bleeding No focused back pain or numbness or loss of strength No changes in memory or confusion reportedly had some times of lethargy on the way in Physical Exam 2 Vital Signs (Past 24 Hours): Last Vital Signs Temp 36.5 C 03/12/18 09:05 Pulse 79 03/12/18 09:05 Resp 18 03/12/18 09:05 BP 108/70 03/12/18 09:05 Pulse Ox 96 03/12/18 09:05 The patient appeared well nourished and normally developed. Vital signs as documented. Head exam is unremarkable. No scleral icterus or corneal arcus noted Neck is without jugular venous distension, thyromegaly, or lymphademopathy Lungs are clear to auscultation and percussion. Cardiac exam reveals Rhythm is regular. First and second heart sounds normal. No murmurs, rubs or gallops. Abdominal exam reveals normal bowel sounds, no masses, no organomegaly Extremities are nonedematous and both pedal pulses are normal. Neurologic exam is A&Ox3, no focal deficits, strength is equal bilateral Skin is warm Dry without bruises or lesions _ (1) Syncope Encounter type: Syncope type: unspecified Qualified Code(s): R55 - Syncope and collapse (2) Diabetes Diabetes mellitus type: type 2 Diabetes mellitus usp insulin use: with usp use Diabetes mellitus complication status: without complication Diabetes mellitus complication detail: Diabetic retinopathy severity: Proliferative retinopathy type: Diabetes mellitus macular edema: Laterality : Chronic kidney disease stage: Qualified Code(s): E11.9 - Type 2 diabetes mellitus without complications; Z79.4 - equipment operator intermodal yard (current) use of insulin
--- NOTE | 2018-03-12 14:13 | Discharge Summary ---
Date of Service March 12, 2018 Admission HPI Per Admitting Provider Patient presented with severe shortness of breath and some chest discomfort after having an episode where her pacemaker check machine made an alarm which she was not used to. The patient reportedly had some variable periods of decreased responsiveness en route to our hospital with her family. The emergency room physician says that she was extremely anxious when she presented she is calm down quite a bit from that point. Her evaluation in the ER revealed negative serologies for any acute coronary event, her EKG shows no acute changes but is a paced rhythm, CT scan of her head (she is a history of aneurysm clipping) is unremarkable for change in chest x-ray is negative. Given her cardiovascular history it is prudent to keep her for observation she is agreeable we will repeat a troponin in 6 hours and reevaluate Principal Diagnosis atypical chest pain Discharge Exam I reason visited the patient in the afternoon she says she was having no symptoms she felt back to her normal state she says that there is been increased stress at home due to recent of local family members and the fact that this is a prescription [place] without them. Patient states she feels comfortable going home we made no medication changes she demonstrated ambulation in the unit without significant symptoms or irregularities of vital signs her heart rhythm prior to going home Her cardiac exam was regular her lungs were clear Discharge Data Allergies Allergy/AdvReac Type Severity Reaction Status Date / Time Iodinated Contrast- Oral and Allergy Severe HIVES, Verified 03/12/18 07:09 IV Dye AIRWAY SWELLS FROM CT DYE iodine Allergy Severe airway Verified 02/13/18 17:20 swells shut amoxicillin Allergy Intermediate RASH Verified 02/13/18 17:20 ceftriaxone Allergy Intermediate RASH Verified 02/13/18 17:20 mivacurium Allergy Intermediate RASH Verified 02/13/18 17:20 adhesive Allergy Mild RASH AND Verified 02/13/18 17:20 SORE SKIN FROM TAPE ADHESIVES atorvastatin Allergy Unknown RASH Verified 03/12/18 07:09 Bactrim Allergy Unknown UNKNOWN Verified 07/24/17 06:56 isopropyl alcohol Allergy Unknown RASH Verified 03/12/18 07:09 lemon Allergy Unknown RASH Verified 03/12/18 07:09 lorazepam Allergy Unknown RASH Verified 02/13/18 17:20 morphine Allergy Unknown stops heart Verified 03/12/18 07:09 rosuvastatin Allergy Unknown RASH Verified 03/12/18 07:09 shellfish derived Allergy Unknown AIRWAY Verified 03/12/18 07:09 SHUTS sulfamethoxazole Allergy Unknown UNKNOWN Verified 03/12/18 07:09 trimethoprim Allergy Unknown UNKNOWN Verified 03/12/18 07:09 azithromycin [From Zithromax] Allergy Unknown Verified 03/12/18 11:01 latex Allergy Rash Verified 03/12/18 11:01 metformin Allergy Unknown Verified 03/12/18 11:01 Cipro AdvReac Unknown INTERFERES Verified 07/24/17 06:56 WITH COUMADIN ciprofloxacin AdvReac Unknown INTERFERES Verified 03/12/18 07:09 WITH COUMADIN ezetimibe AdvReac Unknown RAPID Verified 03/12/18 07:09 HEART BEAT gemfibrozil AdvReac Unknown MYALGIAS Verified 03/12/18 07:09 lovastatin AdvReac Unknown MYALGIAS Verified 03/12/18 07:09 tramadol AdvReac Unknown CHEST Verified 03/12/18 07:09 TIGHTNESS Consultations 03/12/18 07:40 ED Decision to Admit Stat Ordered Studies 03/12/18 06:04 CT head/brain wo con Stat Hospital Course (1) Left sided chest pain: Patient's chest pain was in the conjunction with fairly reasonable anxiety attack. It is difficult to interpret her EKG given its paced status. Patient's initial troponin was unremarkable repeat troponin was also unremarkable (2) Syncope: This variable consciousness was volunteered by the family and the way and the patient herself refutes this. Certainly her CT scan was unremarkable patient is not any recurrence of the symptoms and feels comfortable going home (3) Afib: Patient is with the paced rhythm with underlying atrial fibrillation, she typically is anticoagulated with apixaban she continues low-dose aspirin and with her pacing is rate controlled. Pacemaker was interrogated and results will be sent to her site acquisition manager. The instructional support technician interrogating the pacemaker noted that there was some conduction through the bundle of His, but otherwise was unremarkable (4) Diabetes: Patient did not take her morning dose of insulin. She typically takes Lantus 44 units at night then short acting insulin 16 units with breakfast and 24 units with lunch and supper will maintain a carbohydrate conscious diet (5) DVT prophylaxis: Apixaban was be used for DVT prevention Total Time Total Time Spent Total Time Spent (In Minutes): greater than 30 minutes were required to prepare discharge Discharge Plan Discharge Items Patient Disposition: Home - Self-Care Reason For Visit: CHEST PAIN Discharge Diagnosis: chest pain negative work up Discharge Goals: Decrease discomfort Activity: Resume your previous activity Non-emergency contact: Primary Care Provider and Floor Coverings Installer Call non-emergency contact if: you have any medication questions Follow-up/Referrals: Michael Sepulveda [Primary Care Provider] - Diet: Carb Consistent or DM2 Addtl Provider Instructions: please call primary care doctor on wednesday 03/14 to arrange hospital follow up Prescriptions: Continue sucralfate [Carafate] 1 gram Tablet 1 g PO BID RF: 0 citalopram 20 mg tablet 20 mg PO HS RF: 0 magnesium oxide 400 mg (241.3 mg magnesium) Tablet 400 mg PO AMHS RF: 0 pantoprazole 40 mg Tablet,Delayed Release (Dr/Ec) 40 mg PO BID RF: 0 docusate sodium 100 mg Capsule 100 mg PO BID RF: 0 gabapentin 100 mg Capsule 100 mg PO TID RF: 0 fenofibrate nanocrystallized 145 mg tablet 145 mg PO QAM RF: 0 apixaban 5 mg tablet 5 mg PO BID RF: 0 aspirin [Ecotrin Low Strength] 81 mg Tablet,Delayed Release (Dr/Ec) 81 mg PO QAM Qty: 30 RF: 0 topiramate [Topamax] 25 mg Tablet 25 mg PO HS RF: 0 pravastatin 20 mg tablet 20 mg PO QPM RF: 0 insulin glargine [Basaglar KwikPen U-100 Insulin] 100 unit/mL (3 mL) insulin pen 44 units subcut HS RF: 0 trazodone 50 mg tablet 150 mg PO HS RF: 0 [id number] [Creon] 24,000-76,000 -120,000 unit capsule,delayed release(DR/EC) 2 cap PO WM RF: 0 ondansetron HCl [Zofran] 4 mg tablet 4 mg PO TIDM RF: 0 cinacalcet [Sensipar] 30 mg tablet 30 mg PO QPM RF: 0 cyanocobalamin (vitamin B-12) [Vitamin B-12] 1,000 mcg Tablet 1,000 mcg PO QAM RF: 0 ascorbic acid (vitamin C) 500 mg Tablet 500 mg PO QPM RF: 0 cholecalciferol (vitamin D3) [Vitamin D3] 5,000 unit Tablet 5,000 unit PO QAM RF: 0 insulin lispro [Admelog SoloStar U-100 Insulin] 100 unit/mL insulin pen 16 unit subcut QAM RF: 0 insulin lispro [Admelog SoloStar U-100 Insulin] 100 unit/mL insulin pen 24 unit subcut BIDM RF: 0 omega-3 fatty acids-fish oil [Fish Oil] 360-1,200 mg Capsule 1 cap PO QPM RF: 0 Stand-Alone Forms: [facility], [facility] Discharge Orders: Discharge Order (Routine); Ordered 03/12/18 Ordered By: Alessio Alba Admission Data Admit Date/Time: 03/12/18 08:08 Attending Provider: Alessio Alba Admit Provider: Alessio Alba Primary Care Provider: Michael Sepulveda Other Providers: Alessio Alba Service: Telemetry Other Pending Studies at Discharge: No
[2018-03-12] MEDS ORDERED: TRAZODONE HCL 50 MG TAB PO SCH (21:00)
[2018-03-12] MEDS ORDERED: TOPIRAMATE 25 MG TAB PO SCH (21:00)
[2018-03-12] MEDS ORDERED: CITALOPRAM 20 MG TAB PO SCH (21:00)
== END 2018-03-12 15:05 | disposition home or self-care (01) ==
LOC: ED 05:56 → 2S 05:56

== ENCOUNTER 2019-09-22 09:28 | Inpatient (IN) ==
[2019-09-22] MEDS ORDERED: SODIUM CHLORIDE 0.9% 1000ML 1,000 ML IV ONE ×2 (09:44→10:15)
[2019-09-22] MEDS ORDERED: SODIUM CHLORIDE 0.9% 1000ML 1,000 ML IV SCH (09:45)
[2019-09-22] MEDS ORDERED: CEFEPIME 2,000 MG/20 ML VIAL IV STA (09:47)
[2019-09-22] MEDS ORDERED: ACETAMINOPHEN 1,000 MG/100 ML VIAL IV STA (09:47)
[2019-09-22 10:11] LABS: Hematocrit (blood only) 37.3 % (37-47); Hemoglobin 12.1 g/dL (12.0-16.0); Mean Corpuscular Hemoglobin 30.6 pg (25-34); Mean Corpuscular Hgb Conc 32.4 g/dL (32-36); Mean Corpuscular Volume 94.4 fL (80-100); Mean Platelet Volume 11.6 fL (7.4-10.4); Platelet Count 200 K/uL (130-400); RDW Coefficient of Variation 16.6 % (11.5-14.5); RDW Standard Deviation 57.2 fL (36.4-46.3); Red Blood Count 3.95 M/uL (4.2-5.4); White Blood Count 20.82 K/uL (4.8-10.8)
--- NOTE | 2019-09-22 10:12 | XRay Report ---
XR chest 1V portable CLINICAL HISTORY: Sepsis. COMPARISON STUDY: Chest radiograph August 21, 2018. FINDINGS: Left subclavian pacer is in place. There is no pneumothorax. Small pleural effusion is note d. There is mild left basilar opacity. Cardiomegaly is noted without evidence for pulmonary edema. IMPRESSION: 1. Small left pleural effusion with left basilar opacity that favors atelectasis. An infectious proce ss is considered less likely but could appear similar. 2. Cardiomegaly without evidence for pulmonary edema. ACT 112: Negative or not required by law. Electronically signed by: Baron Garcia M.D. 09/22/2019 10:11 AM
--- NOTE | 2019-09-22 10:21 | Emergency Department Note ---
History of Present Illness General Chief complaint: Confusion Stated complaint: ams Time Seen by Provider: 09/22/19 09:35 History of Present Illness Provider complaint: Altered mental status Onset (ago): day(s) 1 63-year-old female presents emergency department for altered mental status via EMS. Per EMS, the patient was picked up at her home for altered mental status. No history was able to be given from the family at that time. Home Medications Home Medications Medication Instructions Recorded Confirmed Type Eliquis 5 mg PO BID 12/10/17 09/22/19 History citalopram [Celexa] 20 mg PO HS 12/10/17 09/22/19 History fenofibrate nanocrystallized 145 mg PO QAM 12/10/17 09/22/19 History [Tricor] gabapentin 100 mg PO TID 12/10/17 09/22/19 History magnesium oxide [MagOx] 400 mg PO BID 12/10/17 09/22/19 History sucralfate [Carafate] 1 g PO QID 12/10/17 09/22/19 History aspirin [Ecotrin Low Strength] 81 mg PO QAM #30 tab 12/11/17 09/22/19 Rx trazodone 150 mg PO HS 01/06/18 09/22/19 History pravastatin [Pravachol] 20 mg PO QPM 01/21/18 09/22/19 History topiramate [Topamax] 50 mg PO HS 01/21/18 09/22/19 History Creon 24,000 unit PO TIDM 03/12/18 09/22/19 History ascorbic acid (vitamin C) 500 mg PO BID 03/12/18 09/22/19 History cinacalcet [Sensipar] 30 mg PO QPM 03/12/18 09/22/19 History cyanocobalamin (vitamin B-12) 1,000 mcg PO QAM 03/12/18 09/22/19 History [Vitamin B-12] omega-3 fatty acids-fish oil [Fish 1 cap PO QPM 03/12/18 09/22/19 History Oil] cholecalciferol (vitamin D3) 5,000 unit PO BID 05/28/18 09/22/19 History [Vitamin D3] docusate sodium [Col-Rite] 100 mg PO BID 07/03/18 09/22/19 History ondansetron 4 mg PO Q8H PRN 07/03/18 09/22/19 History prochlorperazine maleate 5 mg PO TID 07/03/18 09/22/19 History acetaminophen 500 mg capsule 1,000 mg PO Q4H PRN cap 05/02/19 09/22/19 History lubiprostone 24 mcg capsule 24 mcg PO DAILY 05/16/19 09/22/19 History glucagon (human recombinant) 1 mg SUBCUT DIRECTED 09/22/19 09/22/19 History [Glucagon Emergency Kit (human)] glucose 16 g PO DIRECTED PRN 09/22/19 09/22/19 History insulin NPH and regular human 18 unit SUBCUT BIDM 09/22/19 09/22/19 History [Novolin 70/30 U-100 Insulin] multivitamin 1 tab PO QAM 09/22/19 09/22/19 History nystatin 1 applic TOPICAL QID 09/22/19 09/22/19 History potassium chloride 10 meq PO QAM 09/22/19 09/22/19 History Allergies Allergy/AdvReac Type Severity Reaction Status Date / Time Iodinated Contrast Media Allergy Severe HIVES, Verified 09/22/19 11:[address] DYE iodine Allergy Severe airway Verified 09/22/19 11:39 swells shut amoxicillin Allergy Intermediate RASH Verified 09/22/19 11:39 ceftriaxone Allergy Intermediate RASH Verified 09/22/19 11:39 adhesive Allergy Mild RASH AND Verified 09/22/19 11:39 SORE SKIN FROM TAPE ADHESIVES azithromycin [From Zithromax] Allergy Mild Hives Verified 09/22/19 11:39 alcohol Allergy Unknown Unknown Verified 09/22/19 11:49 atorvastatin Allergy Unknown RASH Verified 09/22/19 11:39 Bactrim Allergy Unknown UNKNOWN Verified 07/24/17 06:56 isopropyl alcohol Allergy Unknown RASH Verified 09/22/19 11:39 lemon Allergy Unknown RASH Verified 09/22/19 11:39 lorazepam Allergy Unknown RASH Verified 09/22/19 11:39 morphine Allergy Unknown stops heart Verified 09/22/19 11:39 rosuvastatin Allergy Unknown RASH Verified 09/22/19 11:39 shellfish derived Allergy Unknown AIRWAY Verified 09/22/19 11:39 SHUTS sulfamethoxazole Allergy Unknown UNKNOWN Verified 09/22/19 11:39 trimethoprim Allergy Unknown UNKNOWN Verified 09/22/19 11:39 latex Allergy Rash Verified 09/22/19 11:39 metformin Allergy Unknown Verified 09/22/19 11:39 Cipro AdvReac Unknown INTERFERES Verified 07/24/17 06:56 WITH COUMADIN ciprofloxacin AdvReac Unknown INTERFERES Verified 09/22/19 11:39 WITH COUMADIN ezetimibe AdvReac Unknown RAPID Verified 09/22/19 11:39 HEART BEAT gemfibrozil AdvReac Unknown MYALGIAS Verified 09/22/19 11:39 lovastatin AdvReac Unknown MYALGIAS Verified 09/22/19 11:39 tramadol AdvReac Unknown CHEST Verified 09/22/19 11:39 TIGHTNESS Past Med/Surg History Medical History A-fib (Chronic) Abdominal pain (Chronic) Acute left-sided weakness (Resolved) Aneurysm (Chronic) cerebral aneurysm clipping in 1998 in [place] Chronic abdominal pain (Chronic) Depression with anxiety (Chronic) Diabetes (Chronic) Diabetic polyneuropathy (Chronic) H/O pancreatic cancer (Resolved) s/p Whipple procedure Heart disease (Chronic) HTN (hypertension) (Chronic) Kidney disease (Chronic) Migraine headache without aura (Chronic) Pacemaker (Chronic) Pancreatitis, recurrent (Chronic) Stroke (Chronic) Surgical History H/O cystoscopy 07/24/17 - MAC #3, ETT #7.0, Grade 1 View History of abdominal surgery (Resolved) History of Whipple Procedure History of cerebral aneurysm repair (Resolved) right-sided cerebral aneurysm repair in 1998 History of hysterectomy Hx of appendectomy (Resolved) Hx of cholecystectomy (Resolved) Family History Mother , in her 60's from CHF CHF (congestive heart failure) Stroke Father , in his 60's of leukemia Leukemia Other No significant family history Social History Preferred Language: Tajik Communication Ability: Effective Visual Impairment: No Limitations Hearing Ability: Normal Mixer [place]agman Required: No Beliefs That Will Affect Care: None Current Living Situation: Spouse Current Living Situation Comment: unk current occupational status: retired and disabled current occupation: cleaned ooms at a resort stopping by age 39 Other Information That Helps Us Care for You: Yes Feels Safe at Home: No Is there a partner from a previous relationship who is making you feel unsafe now?: No Smoking Status: Unknown if ever smoked Hx Substance Use: No (unk) Review of Systems Unobtainable due to cognitive status Physical Exam Vital Signs Vital Signs - 24 hr 09/22/19 09:43 09/22/19 10:20 09/22/19 10:37 Temperature 39.2 C H Temperature Source Rectal Pulse Rate 73 Pulse Rate [Apical] Pulse Rate [Finger] 70 70 Pulse Rhythm [Apical] Respiratory Rate 22 18 18 Respiratory Effort / Characteristics Non-Labored Non-Labored Non-Labored Respiratory Depth Normal Normal Normal Respiratory Pattern Blood Pressure 91/52 L Blood Pressure [Left Arm] 109/49 L 104/47 L Blood Pressure [Right Arm] Blood Pressure Mean 65 Blood Pressure Mean [Left Arm] 69 66 Blood Pressure Mean [Right Arm] Blood Pressure Position [Right Arm] Pulse Oximetry 94 94 97 Oxygen Delivery Method Nasal Cannula Nasal Cannula Nasal Cannula Oxygen Flow Rate 2 2 2 Sepsis Recent Fever Within 48 Hours No Sepsis New/Unexplained Change in Mental Status No Sepsis Action Taken by Nursing No Action Required 09/22/19 11:36 09/22/19 11:45 09/22/19 12:06 Temperature Temperature Source Pulse Rate Pulse Rate [Apical] Pulse Rate [Finger] 70 70 81 Pulse Rhythm [Apical] Respiratory Rate 22 22 16 Respiratory Effort / Characteristics Respiratory Depth Respiratory Pattern Blood Pressure Blood Pressure [Left Arm] 86/45 L 87/42 L 95/50 L Blood Pressure [Right Arm] Blood Pressure Mean Blood Pressure Mean [Left Arm] 58 57 65 Blood Pressure Mean [Right Arm] Blood Pressure Position [Right Arm] Pulse Oximetry 95 96 95 Oxygen Delivery Method Nasal Cannula Nasal Cannula Nasal Cannula Oxygen Flow Rate 2 2 2 Sepsis Recent Fever Within 48 Hours Sepsis New/Unexplained Change in Mental Status Sepsis Action Taken by Nursing 09/22/19 12:30 09/22/19 13:20 09/22/19 13:30 Temperature 36.1 C L 36.6 C Temperature Source Temporal Artery Scan Temporal Artery Scan Temporal Artery Scan Pulse Rate Pulse Rate [Apical] 68 76 71 Pulse Rate [Finger] Pulse Rhythm [Apical] Irregular Regular Regular Respiratory Rate 20 20 25 H Respiratory Effort / Characteristics Non-Labored Spontaneous Non-Labored Spontaneous Non-Labored Spontaneous Respiratory Depth Normal Normal Normal Respiratory Pattern Regular Regular Regular Blood Pressure Blood Pressure [Left Arm] Blood Pressure [Right Arm] 107/56 L 104/49 L 101/49 L Blood Pressure Mean Blood Pressure Mean [Left Arm] Blood Pressure Mean [Right Arm] 73 67 66 Blood Pressure Position [Right Arm] Lying Lying Lying Pulse Oximetry 93 97 98 Oxygen Delivery Method Nasal Cannula Oxymask Oxymask Oxygen Flow Rate 2 8 8 Sepsis Recent Fever Within 48 Hours Sepsis New/Unexplained Change in Mental Status Sepsis Action Taken by Nursing Physical Exam GENERAL: Patient is dirty and foul-smelling. She is not oriented. She is in a depends diaper that is completely filled with feces and saturated and looks like it has been changed for many days. NECK: Neck supple. CV: Normal rate, regular rhythm, PULM/CHEST: Rhonchi bilaterally ABD: The abdomen is soft. Nondistended. NEURO: Motor and sensation grossly intact. Patient is confused and not able to answer any questions. Course Course 0945: The patient was evaluated in room C7. A complete history and physical exam was performed. Patient was found to be febrile and hypotensive. A code sepsis was called. Schaffer catheter was placed in the urine appeared very foul-smelling and cloudy. Cefepime 2 g IV was ordered empirically for sepsis. Fluid orders were placed for sepsis. Tylenol order was also placed. EMR reviewed. Patient has a history of C. difficile, recurrent pancreatitis, Whipple procedure, A. fib, cerebral aneurysm, diabetes, chronic abdominal pain and is listed to be on Eliquis. There is no report from EMS of fall but we will conduct CT of the head and C-spine given the patient's acute altered mental status. Cardiac monitoring: An order was placed for continuous cardiac monitoring. The monitor shows a rate of 85 with paced rhythm 1025: Blood pressure improved after fluid bolus began. is now at bedside and states that yesterday the patient was reporting abdominal pain and this morning the patient was confused and unable to answer questions. She was unable to get out of bed. reports that he subsequently called EMS. 1156: On arrival back from CT the patient was hypotensive at 87/42. Patient is received 2 L of fluid. Patient appears to have an acute kidney injury, creatinine 2.29 her baseline creatinine is around 0.6. Patient will be given an additional 2 L of fluid given this increase in her creatinine as well as her lactic acid of 3.4. CT imaging shows 1.7 cm calculus at the left UPJ causing moderate left-sided hydroureteronephrosis and in addition a mild right-sided hydroureter nephrosis secondary to a 7 x 4 x 12 mm calculated of the right ureter. I discussed these findings with Dr. Tessa Avalos urology who states he will be in to put a stent in the patient's ureter. I discussed with [facility]. [facility] hospitalist about admission and states he will evaluate the patient. Discussed with pharmacy who recommends daptomycin in addition to cefepime based off the patient's previous urine cultures which will also be given. I discussed the plan with the patient's who is in agreement for the patient to have urological procedure and be admitted. He also states that the patient has not taking her Eliquis in a week. Administered Medications Sodium Chloride (Nss 1000ml) 1,000 mls @ 125 mls/hr IV .Q8H TERRY Stop: 10/22/19 11:44 Last Admin: 09/22/19 14:37 Dose: 125 mls/hr Documented by: [id number] Sodium Chloride (Nss 1000ml) 1,000 mls @ 125 mls/hr IV .Q8H TERRY Stop: 10/22/19 14:15 Last Admin: 09/22/19 15:45 Dose: 125 mls/hr Documented by: [id number] Miscellaneous (Order Awaiting Action) 1 ea N/A QS TERRY Stop: 10/22/19 15:59 Last Admin: 09/22/19 15:35 Dose: Not Given Documented by: [id number] Miscellaneous (Order Awaiting Action) 1 ea N/A QS TERRY Stop: 10/22/19 15:59 Last Admin: 09/22/19 15:35 Dose: Not Given Documented by: [id number] Discontinued Medications Sodium Chloride (Nss 1000ml) 1,000 mls @ 999 mls/hr IV .Q1H1M TERRY Stop: 09/22/19 10:43 Last Infusion: 09/22/19 14:43 Dose: 0 mls/hr Documented by: [id number] Admin: 09/22/19 11:55 Dose: 999 mls/hr Documented by: [id number] Sodium Chloride (Nss 1000ml) 1,000 mls @ 999 mls/hr IV .Q1H1M ONE Stop: 09/22/19 10:44 Last Infusion: 09/22/19 11:18 Dose: 0 mls/hr Documented by: [id number] Admin: 09/22/19 10:15 Dose: 999 mls/hr Documented by: [id number] Acetaminophen (Ofirmev) 1,000 mg in 100 mls @ 400 mls/hr IV NOW STA Stop: 09/22/19 10:01 Last Infusion: 09/22/19 10:31 Dose: 0 mls/hr Documented by: [id number] Admin: 09/22/19 10:15 Dose: 400 mls/hr Documented by: [id number] Cefepime HCl (Maxipime) 2,000 mg in 20 mls @ 5 mls/min IV NOW STA; Protocol Stop: 09/22/19 09:50 Last Admin: 09/22/19 10:37 Dose: 5 mls/min Documented by: [id number] Sodium Chloride (Nss 1000ml) 1,000 mls @ 999 mls/hr IV .Q1H1M ONE Stop: 09/22/19 11:15 Last Infusion: 09/22/19 11:18 Dose: 0 mls/hr Documented by: [id number] Admin: 09/22/19 10:16 Dose: 999 mls/hr Documented by: [id number] Daptomycin 375 mg/ Syringe 7.5 mls @ 3.75 mls/min IV NOW ONE; Protocol Stop: 09/22/19 12:01 Last Admin: 09/22/19 12:03 Dose: 3.75 mls/min Documented by: [id number] Critical Care Time Critical Care Time: Yes Total Critical Care Time: 78 I have personally spent greater than 78 minutes of critical care time in the direct management of this patient. This includes bedside care, interpretation of diagnostic studies, and testing, discussion with consultants, patient, and family members, and other required patient management activities. This 78 minutes is in excess of all separately billable procedures. Medical Decision Making Laboratory Data Result diagrams: 09/22/19 09:02 09/22/19 09:02 Lab Results 09/22/19 09/22/19 09/22/19 Range/Units 09:02 09:02 09:02 WBC 20.82 H (4.8-10.8) K/uL RBC 3.95 L (4.2-5.4) M/uL Hgb 12.1 (12.0-16.0) g/dL Hct 37.3 (37-47) % MCV 94.4 (80-100) fL MCH 30.6 (25-34) pg MCHC 32.4 (32-36) g/dL RDW Std Deviation 57.2 H (36.4-46.3) fL RDW Coeff of Evan 16.6 H (11.5-14.5) % Plt Count 200 (130-400) K/uL MPV 11.6 H (7.4-10.4) fL Neutrophils % (Manual) 89.6 % Lymphocytes % (Manual) 7.8 % Monocytes % (Manual) 2.6 % Neutrophils # (Manual) 18.65 H (1.4-6.5) K/uL Total Absolute Neuts 18.65 H (1.4-6.5) K/uL Lymphocytes # (Manual) 1.62 (1.2-3.4) K/uL Total Abs Lymphocytes 1.62 (1.2-3.4) K/uL Monocytes # (Manual) 0.54 (0.11-0.59) K/uL Toxic Vacuolation 1+ Dohle Bodies 1+ Echinocytes 2+ PT 16.5 H (9.0-12.0) Seconds INR 1.6 H (0.9-1.1) APTT 34.4 H (21.0-31.0) Seconds PTT Ratio 1.2 VBG pH (7.36-7.41) VBG pCO2 (38-50) mmHg VBG pO2 mmHg VBG HCO3 mmol/L VBG O2 Saturation % VBG Base Excess mEq/L Barometric Pressure mm/Hg Sodium (136-145) mmol/L Potassium (3.5-5.1) mmol/L Chloride (98-107) mmol/L Carbon Dioxide (21-32) mmol/L Anion Gap (3-11) BUN (7-18) mg/dl Creatinine (0.6-1.2) mg/dl Est Cr Clr Drug Dosing ml/min Est GFR ( Amer) Est GFR (Non-Af Amer) BUN/Creatinine Ratio (10-20) Glucose (70-99) mg/dl Lactate (0.4-2.0) mmol/L Calcium (8.5-10.1) mg/dl Magnesium (1.8-2.4) mg/dl Total Bilirubin (0.2-1) mg/dl AST (15-37) U/L ALT (12-78) U/L Alkaline Phosphatase (45-117) U/L Ammonia (11-32) umol/L Troponin I (0-0.045) ng/ml Total Protein (6.4-8.2) gm/dl Albumin (3.4-5.0) gm/dl Globulin (2.5-4.0) gm/dl Albumin/Globulin Ratio (0.9-2) Lipase (73-393) U/L Procalcitonin 50.33 H (0-0.5) ng/ml Urine Color Urine Appearance (Clear) Urine pH (4.5-7.5) Ur Specific [place] (1.000-1.030) Urine Protein (Negative) Urine Glucose (UA) (Negative) Urine Ketones (Negative) Urine Blood (Negative) Urine Nitrite (Negative) Urine Bilirubin (Negative) Urine Urobilinogen (Negative) Ur Leukocyte Esterase (Negative) Urine WBC (Auto) (0-5) /hpf Urine RBC (Auto) (0-4) /hpf U Hyaline Cast (Auto) (0-5) /lpf U Epithel Cells (Auto) (0-5) /lpf Urine Bacteria (Auto) (Negative) Ethyl Alcohol mg/dL (0-3) mg/dl 09/22/19 09/22/19 09/22/19 Range/Units 09:02 09:44 10:33 WBC (4.8-10.8) K/uL RBC (4.2-5.4) M/uL Hgb (12.0-16.0) g/dL Hct (37-47) % MCV (80-100) fL MCH (25-34) pg MCHC (32-36) g/dL RDW Std Deviation (36.4-46.3) fL RDW Coeff of Evan (11.5-14.5) % Plt Count (130-400) K/uL MPV (7.4-10.4) fL Neutrophils % (Manual) % Lymphocytes % (Manual) % Monocytes % (Manual) % Neutrophils # (Manual) (1.4-6.5) K/uL Total Absolute Neuts (1.4-6.5) K/uL Lymphocytes # (Manual) (1.2-3.4) K/uL Total Abs Lymphocytes (1.2-3.4) K/uL Monocytes # (Manual) (0.11-0.59) K/uL Toxic Vacuolation Dohle Bodies Echinocytes PT (9.0-12.0) Seconds INR (0.9-1.1) APTT (21.0-31.0) Seconds PTT Ratio VBG pH (7.36-7.41) VBG pCO2 (38-50) mmHg VBG pO2 mmHg VBG HCO3 mmol/L VBG O2 Saturation % VBG Base Excess mEq/L Barometric Pressure mm/Hg Sodium 136 (136-145) mmol/L Potassium 4.4 (3.5-5.1) mmol/L Chloride 106 (98-107) mmol/L Carbon Dioxide 21 (21-32) mmol/L Anion Gap 9.0 (3-11) BUN 25 H (7-18) mg/dl Creatinine 2.29 H (0.6-1.2) mg/dl Est Cr Clr Drug Dosing 27.6 ml/min Est GFR ( Amer) 25.3 Est GFR (Non-Af Amer) 21.8 BUN/Creatinine Ratio 10.8 (10-20) Glucose 108 H (70-99) mg/dl Lactate 3.4 H* (0.4-2.0) mmol/L Calcium 9.8 (8.5-10.1) mg/dl Magnesium 1.8 (1.8-2.4) mg/dl Total Bilirubin 1.5 H (0.2-1) mg/dl AST 137 H (15-37) U/L ALT 65 (12-78) U/L Alkaline Phosphatase 77 (45-117) U/L Ammonia (11-32) umol/L Troponin I < 0.015 (0-0.045) ng/ml Total Protein 5.6 L (6.4-8.2) gm/dl Albumin 1.6 L (3.4-5.0) gm/dl Globulin 4.0 (2.5-4.0) gm/dl Albumin/Globulin Ratio 0.4 L (0.9-2) Lipase 13 L (73-393) U/L Procalcitonin (0-0.5) ng/ml Urine Color Dark Yellow Urine Appearance Turbid A (Clear) Urine pH 5.0 (4.5-7.5) Ur Specific [place] 1.019 (1.000-1.030) Urine Protein 2+ H (Negative) Urine Glucose (UA) Negative (Negative) Urine Ketones Trace H (Negative) Urine Blood 3+ H (Negative) Urine Nitrite Negative (Negative) Urine Bilirubin Negative (Negative) Urine Urobilinogen Negative (Negative) Ur Leukocyte Esterase 3+ H (Negative) Urine WBC (Auto) >30 H (0-5) /hpf Urine RBC (Auto) 0-4 (0-4) /hpf U Hyaline Cast (Auto) 1-5 (0-5) /lpf U Epithel Cells (Auto) 20-30 H (0-5) /lpf Urine Bacteria (Auto) 4+ H (Negative) Ethyl Alcohol mg/dL (0-3) mg/dl 09/22/19 09/22/19 09/22/19 Range/Units 10:33 10:33 11:21 WBC (4.8-10.8) K/uL RBC (4.2-5.4) M/uL Hgb (12.0-16.0) g/dL Hct (37-47) % MCV (80-100) fL MCH (25-34) pg MCHC (32-36) g/dL RDW Std Deviation (36.4-46.3) fL RDW Coeff of Evan (11.5-14.5) % Plt Count (130-400) K/uL MPV (7.4-10.4) fL Neutrophils % (Manual) % Lymphocytes % (Manual) % Monocytes % (Manual) % Neutrophils # (Manual) (1.4-6.5) K/uL Total Absolute Neuts (1.4-6.5) K/uL Lymphocytes # (Manual) (1.2-3.4) K/uL Total Abs Lymphocytes (1.2-3.4) K/uL Monocytes # (Manual) (0.11-0.59) K/uL Toxic Vacuolation Dohle Bodies Echinocytes PT (9.0-12.0) Seconds INR (0.9-1.1) APTT (21.0-31.0) Seconds PTT Ratio VBG pH 7.37 (7.36-7.41) VBG pCO2 37 L (38-50) mmHg VBG pO2 40 mmHg VBG HCO3 21 mmol/L VBG O2 Saturation < 60.0 % VBG Base Excess -3.8 mEq/L Barometric Pressure 732.0 mm/Hg Sodium (136-145) mmol/L Potassium (3.5-5.1) mmol/L Chloride (98-107) mmol/L Carbon Dioxide (21-32) mmol/L Anion Gap (3-11) BUN (7-18) mg/dl Creatinine (0.6-1.2) mg/dl Est Cr Clr Drug Dosing ml/min Est GFR ( Amer) Est GFR (Non-Af Amer) BUN/Creatinine Ratio (10-20) Glucose (70-99) mg/dl Lactate (0.4-2.0) mmol/L Calcium (8.5-10.1) mg/dl Magnesium (1.8-2.4) mg/dl Total Bilirubin (0.2-1) mg/dl AST (15-37) U/L ALT (12-78) U/L Alkaline Phosphatase (45-117) U/L Ammonia 40.3 H (11-32) umol/L Troponin I (0-0.045) ng/ml Total Protein (6.4-8.2) gm/dl Albumin (3.4-5.0) gm/dl Globulin (2.5-4.0) gm/dl Albumin/Globulin Ratio (0.9-2) Lipase (73-393) U/L Procalcitonin (0-0.5) ng/ml Urine Color Urine Appearance (Clear) Urine pH (4.5-7.5) Ur Specific [place] (1.000-1.030) Urine Protein (Negative) Urine Glucose (UA) (Negative) Urine Ketones (Negative) Urine Blood (Negative) Urine Nitrite (Negative) Urine Bilirubin (Negative) Urine Urobilinogen (Negative) Ur Leukocyte Esterase (Negative) Urine WBC (Auto) (0-5) /hpf Urine RBC (Auto) (0-4) /hpf U Hyaline Cast (Auto) (0-5) /lpf U Epithel Cells (Auto) (0-5) /lpf Urine Bacteria (Auto) (Negative) Ethyl Alcohol mg/dL < 3.0 (0-3) mg/dl 09/22/19 Range/Units 12:46 WBC (4.8-10.8) K/uL RBC (4.2-5.4) M/uL Hgb (12.0-16.0) g/dL Hct (37-47) % MCV (80-100) fL MCH (25-34) pg MCHC (32-36) g/dL RDW Std Deviation (36.4-46.3) fL RDW Coeff of Evan (11.5-14.5) % Plt Count (130-400) K/uL MPV (7.4-10.4) fL Neutrophils % (Manual) % Lymphocytes % (Manual) % Monocytes % (Manual) % Neutrophils # (Manual) (1.4-6.5) K/uL Total Absolute Neuts (1.4-6.5) K/uL Lymphocytes # (Manual) (1.2-3.4) K/uL Total Abs Lymphocytes (1.2-3.4) K/uL Monocytes # (Manual) (0.11-0.59) K/uL Toxic Vacuolation Dohle Bodies Echinocytes PT (9.0-12.0) Seconds INR (0.9-1.1) APTT (21.0-31.0) Seconds PTT Ratio VBG pH (7.36-7.41) VBG pCO2 (38-50) mmHg VBG pO2 mmHg VBG HCO3 mmol/L VBG O2 Saturation % VBG Base Excess mEq/L Barometric Pressure mm/Hg Sodium (136-145) mmol/L Potassium (3.5-5.1) mmol/L Chloride (98-107) mmol/L Carbon Dioxide (21-32) mmol/L Anion Gap (3-11) BUN (7-18) mg/dl Creatinine (0.6-1.2) mg/dl Est Cr Clr Drug Dosing ml/min Est GFR ( Amer) Est GFR (Non-Af Amer) BUN/Creatinine Ratio (10-20) Glucose (70-99) mg/dl Lactate 2.4 H* (0.4-2.0) mmol/L Calcium (8.5-10.1) mg/dl Magnesium (1.8-2.4) mg/dl Total Bilirubin (0.2-1) mg/dl AST (15-37) U/L ALT (12-78) U/L Alkaline Phosphatase (45-117) U/L Ammonia (11-32) umol/L Troponin I (0-0.045) ng/ml Total Protein (6.4-8.2) gm/dl Albumin (3.4-5.0) gm/dl Globulin (2.5-4.0) gm/dl Albumin/Globulin Ratio (0.9-2) Lipase (73-393) U/L Procalcitonin (0-0.5) ng/ml Urine Color Urine Appearance (Clear) Urine pH (4.5-7.5) Ur Specific [place] (1.000-1.030) Urine Protein (Negative) Urine Glucose (UA) (Negative) Urine Ketones (Negative) Urine Blood (Negative) Urine Nitrite (Negative) Urine Bilirubin (Negative) Urine Urobilinogen (Negative) Ur Leukocyte Esterase (Negative) Urine WBC (Auto) (0-5) /hpf Urine RBC (Auto) (0-4) /hpf U Hyaline Cast (Auto) (0-5) /lpf U Epithel Cells (Auto) (0-5) /lpf Urine Bacteria (Auto) (Negative) Ethyl Alcohol mg/dL (0-3) mg/dl Imaging Data Radiologist's Impression: XR chest 1V portable CLINICAL HISTORY: Sepsis. COMPARISON STUDY: Chest radiograph August 21, 2018. FINDINGS: Left subclavian pacer is in place. There is no pneumothorax. Small pleural effusion is noted. There is mild left basilar opacity. Cardiomegaly is noted without evidence for pulmonary edema. IMPRESSION: 1. Small left pleural effusion with left basilar opacity that favors atelectasis. An infectious process is considered less likely but could appear similar. 2. Cardiomegaly without evidence for pulmonary edema. ACT 112: Negative or not required by law. Electronically signed by: Baron Garcia M.D. 09/22/2019 10:11 AM Dictated: 09/22/19 1008 Transcribed: 09/22/[address] WITHOUT CONTRAST CT DOSE: 2396.65 mGy.cm HISTORY: Acute generalized abdominal pain with altered mental status ams ab pain TECHNIQUE: Multiaxial CT images of the abdomen and pelvis were performed without contrast. A dose lowering technique was utilized adhering to the principles of ALARA. COMPARISON STUDY: CT abdomen and pelvis 07/02/2018 FINDINGS: Trace left pleural effusion. Dependent left greater than right bibasilar consolidative and groundglass densities suggest compressive atelectasis. Study is motion degraded. The study is also limited secondary to upper extremity pos itioning. Cardiomegaly. Partially imaged pacer leads. Small pericardial effusion. Hepatomegaly with hepatic steatosis. No evidence of cirrhosis or hepatic mass lesion. Cholecystectomy. Unremarkable appearance of the spleen and right adrenal gland. Mild left adrenal gland thickening suggests hyperplasia. Mild stranding surrounds the pancreatic tail. Postoperative changes of prior Whipple procedure. 8.1 cm cyst of the inferior pole right kidney. There is a 7 x 4 x 12 mm calculus of the proximal right ureter just distal to the ureteropelvic junction at the level of L3-L4 resulting in mild hydroureteronephrosis. Moderate left-sided hydroureteronephrosis secondary to an irregular obstructing calculus of the ureteropelvic junction, 1.7 x 1.0 x 1.5 cm. There are 2 additional large calculi of the mid and inferior pole left kidney measuring up to 1.9 cm. There is moderate left perinephric and periureteral stranding which tracks into the left hemipelvis. Schaffer catheter noted within a decompressed urinary bladder. There is a 1.5 cm fatty attenuating structure central calcification the left h emipelvis which is indeterminate and may represent fat within a loop of bowel. There is no bowel obstruction or bowel wall thickening. Anastomotic suture within the rectum redemonstrated. There is a small 2.2 cm left anterior pelvic wall hernia containing nonobstructed loop of small bowel and mesenteric fat. Soft tissues are unremarkable. Degenerative changes of the spine, pelvis and hips. No acute fracture. IMPRESSION: 1. Moderate left-sided hydroureteronephrosis secondary to a 1.7 cm calculus of the ureteropelvic junction. Additional large nonobstructing calculi are noted within the left kidney. 2. Mild right-sided hydronephrosis secondary to a 7 x 4 x 12 mm calculus of the proximal right ureter at the level of L3-L4. 3. Prior Whipple procedure. 4. Trace left pleural effusion. 5. Mild stranding surrounding the pancreatic tail may be secondary to the aforementioned reactive changes of the left kidney. Correlate with lipase level to exclude acute pancreatitis. 6. Hepatomegaly with hepatic steatosis. 7. Chronic findings as above. ACT 112: Negative or not required by law. The above report was generated using voice recognition software. It may contain grammatical, syntax or spelling errors. Electronically signed by: Michel Garica M.D. 09/22/2019 11:37 AM Dictated: 09/22/19 1125 Transcribed: 09/22/[address] head/brain wo con CLINICAL HISTORY: 63 years-old Female with ams on eliquis. Acutely altered mental status TECHNIQUE: Multiple axial CT images of the head were obtained without contrast. A dose lowering technique was utilized adhering to the principles of ALARA. COMPARISON: Head CT 05/01/2018. FINDINGS: Motion degraded exam. No acute intracranial hemorrhage, midline shift, intracranial mass, hydrocephalus, territorial ischemia or abnormal extra-axial collection. Age-related involutional changes. Patchy white matter hypodensities suggest chronic microvascular ischemic disease. There is new/progressed decreased attenuation of the right frontal lobe with possible blurring of the concepcion-white interface. Remote lacunar infarcts of the basal ganglia. Cerebral vascular calcifications. Vascular coils are noted within the right sylvian f issure. No acute calvarial fracture. Remote postoperative changes of the right frontal and temporal calvarium. Mastoid air cells are clear. Bilateral emily bullosa. Left frontal sinus osteoma. Demineralized appearance of the bones. The soft tissues and orbits are unremarkable. The paranasal sinuses, mastoid air cells, and middle ear cavities are clear. IMPRESSION: 1. No acute intracranial hemorrhage or midline shift. 2. The study is motion degraded. There is hypodensity within the right frontal lobe which is new from 05/01/2018 suggestive of probable remote infarct with encephalomalacia. 3. Chronic findings as above. ACT 112: Negative or not required by law. The above report was generated using voice recognition software. It may contain grammatical, syntax or spelling errors. Electronically signed by: Michel Garcia M.D. 09/22/2019 11:21 AM Dictated: 09/22/19 1112 Transcribed: 09/22/[address] cervical spine wo con CLINICAL HISTORY: 63 years-old Female with ams on eliquis. Acute neck injury with altered mental status COMPARISON: Head CT of same day. TECHNIQUE: Multiple axial CT images of the cervical spine were obtained without contrast. A dose lowering technique was utilized adhering to the principles of ALARA. FINDINGS: Straightening of the normal cervical lordosis. Demineralized appearance of the bones. Moderate disc space narrowing with posterior disc osteophyte complex at C6-C7. Grade 1 anterolisthesis C7 on T1 secondary to long-standing facet arthrosis. Study is motion degraded. Evaluation of the central canal and neuroforamina is better assessed by MRI. No definite acute fracture or subluxation. Partially imaged groundglass densities of the right lung apex. Mild subpleural bleb formation. Left subclavian pacer lead. IMPRESSION: 1. Mildly motion degraded exam. 2. No acute fracture or subluxation identified. ACT 112: Negative or not required by law. The above report was generated using voice recognition software. It may contain grammatical, syntax or spelling errors. Electronically signed by: Michel Garcia M.D. 09/22/2019 11:25 AM Dictated: 09/22/19 1121 Transcribed: 09/22/19 1121 ECG Data Indication: + other (Altered mental status sepsis) Rate (beats per minute): 85 Rhythm: + other (Paced) Additional Comments: QRS interval 146. QTc 499. No ectopy. [facility] Narrative 0945: The patient was evaluated in room C7. A complete history and physical exam was performed. Patient was found to be febrile and hypotensive. A code sepsis was called. Schaffer catheter was placed in the urine appeared very foul-smelling and cloudy. Cefepime 2 g IV was ordered empirically for sepsis. Fluid orders were placed for sepsis. Tylenol order was also placed. EMR reviewed. Patient has a history of C. difficile, recurrent pancreatitis, Whipple procedure, A. fib, cerebral aneurysm, diabetes, chronic abdominal pain and is listed to be on Eliquis. There is no report from EMS of fall but we will conduct CT of the head and C-spine given the patient's acute altered mental status. Cardiac monitoring: An order was placed for continuous cardiac monitoring. The monitor shows a rate of 85 with paced rhythm 1025: Blood pressure improved after fluid bolus began. is now at bedside and states that yesterday the patient was reporting abdominal pain and this morning the patient was confused and unable to answer questions. She was unable to get out of bed. reports that he subsequently called EMS. 1156: On arrival back from CT the patient was hypotensive at 87/42. Patient is received 2 L of fluid. Patient appears to have an acute kidney injury, creatinine 2.29 her baseline creatinine is around 0.6. Patient will be given an additional 2 L of fluid given this increase in her creatinine as well as her lactic acid of 3.4. CT imaging shows 1.7 cm calculus at the left UPJ causing moderate left-sided hydroureteronephrosis and in addition a mild right-sided hydroureter nephrosis secondary to a 7 x 4 x 12 mm calculated of the right ureter. I discussed these findings with Dr. Tessa Avalos urology who states he will be in to put a stent in the patient's ureter. I discussed with Dr. Srikanth Avalos hospitalist about admission and states he will evaluate the patient. Discussed with pharmacy who recommends daptomycin in addition to cefepime based off the patient's previous urine cultures which will also be given. Impression & Plan Sepsis, CAROLA (acute kidney injury), Acute UTI, Kidney stone, Hydroureteronephrosis Discharge Plan Visit Data *Final* Discharge Date/Time: 09/22/19 12:07 Chief Complaint: Confusion Stated Complaint: ams ED Provider: Tyler Armendariz Discharge Problem: Sepsis, CAROLA (acute kidney injury), Acute UTI, Kidney stone, Hydroureteronephrosis Patient Disposition: Still a Patient Discharge Instructions Interventions: ED Discharge Assessment Last Done: 09/22/19 12:07 Discharge Problem: Sepsis Qualifiers: Sepsis type: sepsis due to unspecified organism Sepsis acute organ dysfunction status: unspecified Qualified Code(s): A41.9 - Sepsis, unspecified organism
[2019-09-22 10:29] LABS: Appearance Urine Turbid (Clear); Bacteria Urine Automated 4+ (Negative); Blood Urine 3+ (Negative); Color Urine Dark Yellow; Epithelial Cell Urine Auto 20-30 /lpf (0-5); Glucose Urine UA Negative (Negative); Ketones Urine Trace (Negative); Leukocyte Esterase Urine 3+ (Negative); Nitrite Urine Negative (Negative); Protein Urine 2+ (Negative); RBC Urine Automated 0-4 /hpf (0-4); Specific Gravity Urine 1.019 (1.000-1.030); Urobilinogen Urine Negative (Negative); WBC Urine Automated >30 /hpf (0-5)
[2019-09-22 10:29] LABS: Alanine Aminotransferase 65 U/L (12-78); Albumin Level 1.6 gm/dl (3.4-5.0); Aspartate Aminotransferase 137 U/L (15-37); BUN Creatinine Ratio 10.8 (10-20); Blood Urea Nitrogen 25 mg/dl (7-18); Calcium 9.8 mg/dl (8.5-10.1); Carbon Dioxide 21 mmol/L (21-32); Chloride 106 mmol/L (98-107); Creatinine Clr Calc Pharmacy 27.6 ml/min; Est GFR (African American) 25.3; Est GFR (Non-African American) 21.8; Glucose 108 mg/dl (70-99); Lipase 13 U/L (73-393); Magnesium 1.8 mg/dl (1.8-2.4); Potassium 4.4 mmol/L (3.5-5.1); Sodium 136 mmol/L (136-145)
[2019-09-22 10:31] LABS: INR 1.6 (0.9-1.1); Partial Thromboplastin Ratio 1.2; Partial Thromboplastin Time 34.4 Seconds (21.0-31.0); Prothrombin Time 16.5 Seconds (9.0-12.0)
[2019-09-22 10:34] LABS: Albumin Globulin Ratio 0.4 (0.9-2); Alkaline Phosphatase 77 U/L (45-117); Bilirubin,Total 1.5 mg/dl (0.2-1); Total Protein 5.6 gm/dl (6.4-8.2); Troponin I < 0.015 ng/ml (0-0.045)
[2019-09-22 10:38] LABS: ALC (manual) 1.62 K/uL (1.2-3.4); ANC (manual) 18.65 K/uL (1.4-6.5); Dohle Bodies 1+; Echinocytes 2+; Lymphocytes # (manual) 1.62 K/uL (1.2-3.4); Lymphocytes % (manual) 7.8 %; Monocytes # (manual) 0.54 K/uL (0.11-0.59); Monocytes % (manual) 2.6 %; Neutrophils # (manual) 18.65 K/uL (1.4-6.5); Neutrophils % (manual) 89.6 %; Toxic Vacuolation 1+
[2019-09-22 10:46] LABS: Base Excess VBG -3.8 mEq/L; HCO3 VBG 21 mmol/L; Oxygen Saturation VBG < 60.0 %; PCO2 VBG 37 mmHg (38-50); PO2 VBG 40 mmHg; pH VBG 7.37 (7.36-7.41)
[2019-09-22 10:47] LABS: Bilirubin Urine Negative (Negative); Ictotest Urine Negative (Negative)
--- NOTE | 2019-09-22 11:23 | CT Scan Report ---
CT head/brain wo con CLINICAL HISTORY: 63 years-old Female with ams on eliquis. Acutely altered mental status TECHNIQUE: Multiple axial CT images of the head were obtained without contrast. A dose lowering tech nique was utilized adhering to the principles of ALARA. COMPARISON: Head CT 05/01/2018. FINDINGS: Motion degraded exam. No acute intracranial hemorrhage, midline shift, intracranial mass, hydrocephal us, territorial ischemia or abnormal extra-axial collection. Age-related involutional changes. Patchy white matter hypodensities suggest chronic microvascular ischemic disease. There is new/progressed d ecreased attenuation of the right frontal lobe with possible blurring of the concepcion-white interface. Re mote lacunar infarcts of the basal ganglia. Cerebral vascular calcifications. Vascular coils are note d within the right sylvian fissure. No acute calvarial fracture. Remote postoperative changes of the right frontal and temporal calvarium . Mastoid air cells are clear. Bilateral emily bullosa. Left frontal sinus osteoma. Demineralized ap pearance of the bones. The soft tissues and orbits are unremarkable. The paranasal sinuses, mastoid air cells, and middle ear cavities are clear. IMPRESSION: 1. No acute intracranial hemorrhage or midline shift. 2. The study is motion degraded. There is hypodensity within the right frontal lobe which is new from 05/01/2018 suggestive of probable remote infarct with encephalomalacia. 3. Chronic findings as above. ACT 112: Negative or not required by law. The above report was generated using voice recognition software. It may contain grammatical, syntax o r spelling errors. Electronically signed by: Michel Garcia M.D. 09/22/2019 11:21 AM
--- NOTE | 2019-09-22 11:26 | CT Scan Report ---
CT cervical spine wo con CLINICAL HISTORY: 63 years-old Female with ams on eliquis. Acute neck injury with altered mental sta tus COMPARISON: Head CT of same day. TECHNIQUE: Multiple axial CT images of the cervical spine were obtained without contrast. A dose low ering technique was utilized adhering to the principles of ALARA. FINDINGS: Straightening of the normal cervical lordosis. Demineralized appearance of the bones. Moderate disc s pace narrowing with posterior disc osteophyte complex at C6-C7. Grade 1 anterolisthesis C7 on T1 seco ndary to long-standing facet arthrosis. Study is motion degraded. Evaluation of the central canal and neuroforamina is better assessed by MRI. No definite acute fracture or subluxation. Partially imaged groundglass densities of the right lung apex. Mild subpleural bleb formation. Left s ubclavian pacer lead. IMPRESSION: 1. Mildly motion degraded exam. 2. No acute fracture or subluxation identified. ACT 112: Negative or not required by law. The above report was generated using voice recognition software. It may contain grammatical, syntax o r spelling errors. Electronically signed by: Michel Garcia M.D. 09/22/2019 11:25 AM
--- NOTE | 2019-09-22 11:39 | CT Scan Report ---
ABDOMEN AND PELVIS CT WITHOUT CONTRAST CT DOSE: 2396.65 mGy.cm HISTORY: Acute generalized abdominal pain with altered mental status ams ab pain TECHNIQUE: Multiaxial CT images of the abdomen and pelvis were performed without contrast. A dose lo wering technique was utilized adhering to the principles of ALARA. COMPARISON STUDY: CT abdomen and pelvis 07/02/2018 FINDINGS: Trace left pleural effusion. Dependent left greater than right bibasilar consolidative and groundglas s densities suggest compressive atelectasis. Study is motion degraded. The study is also limited seco ndary to upper extremity positioning. Cardiomegaly. Partially imaged pacer leads. Small pericardial e ffusion. Hepatomegaly with hepatic steatosis. No evidence of cirrhosis or hepatic mass lesion. Cholecystectomy . Unremarkable appearance of the spleen and right adrenal gland. Mild left adrenal gland thickening s uggests hyperplasia. Mild stranding surrounds the pancreatic tail. Postoperative changes of prior Whi pple procedure. 8.1 cm cyst of the inferior pole right kidney. There is a 7 x 4 x 12 mm calculus of the proximal righ t ureter just distal to the ureteropelvic junction at the level of L3-L4 resulting in mild hydrourete ronephrosis. Moderate left-sided hydroureteronephrosis secondary to an irregular obstructing calculus of the ureteropelvic junction, 1.7 x 1.0 x 1.5 cm. There are 2 additional large calculi of the mid a nd inferior pole left kidney measuring up to 1.9 cm. There is moderate left perinephric and periurete ral stranding which tracks into the left hemipelvis. Schaffer catheter noted within a decompressed urina ry bladder. There is a 1.5 cm fatty attenuating structure central calcification the left hemipelvis which is inde terminate and may represent fat within a loop of bowel. There is no bowel obstruction or bowel wall t hickening. Anastomotic suture within the rectum redemonstrated. There is a small 2.2 cm left anterior pelvic wall hernia containing nonobstructed loop of small bowel and mesenteric fat. Soft tissues are unremarkable. Degenerative changes of the spine, pelvis and hips. No acute fracture. IMPRESSION: 1. Moderate left-sided hydroureteronephrosis secondary to a 1.7 cm calculus of the ureteropelvic junc tion. Additional large nonobstructing calculi are noted within the left kidney. 2. Mild right-sided hydronephrosis secondary to a 7 x 4 x 12 mm calculus of the proximal right ureter at the level of L3-L4. 3. Prior Whipple procedure. 4. Trace left pleural effusion. 5. Mild stranding surrounding the pancreatic tail may be secondary to the aforementioned reactive adriana nges of the left kidney. Correlate with lipase level to exclude acute pancreatitis. 6. Hepatomegaly with hepatic steatosis. 7. Chronic findings as above. ACT 112: Negative or not required by law. The above report was generated using voice recognition software. It may contain grammatical, syntax o r spelling errors. Electronically signed by: Mihcel Garcia M.D. 09/22/2019 11:37 AM
[2019-09-22] MEDS ORDERED: ONDANSETRON INJ 2 MG/ML 2 ML VIAL IV PRN (11:58)
[2019-09-22] MEDS ORDERED: fentaNYL citrate 100 MCG/2 ML VIAL IV PRN (11:58)
[2019-09-22] MEDS ORDERED: ATROPINE SULFATE 0.1 MG/ML 10ML SYR IV PRN (11:58)
[2019-09-22] MEDS ORDERED: ePHEDrine sulfate 50 MG/ML AMP IV PRN (11:58)
[2019-09-22] MEDS ORDERED: DAPTOmycin 375 MG in SYRINGE 0 ML IV ONE (12:00)
--- NOTE | 2019-09-22 12:01 | History & Physical Report ---
Date of Service September 22, 2019 Assessment & Plan (1) Sepsis: Patient brought in with metabolic encephalopathy from sepsis from urinary tract infection present on admission. Patient is evidence of obstructive uropathy with renal colic and renal failure based upon that. She is taken emergently to the operating room to relieve the obstruction. In the emergency room she is volume resuscitated with crystalloid solution given daptomycin and cefepime which will be continued cultures will be obtained urology consultation will follow along. Procalcitonin is 50 (2) Acute kidney injury: Patient is acute kidney injury with creatinine of 2.29, creatinine on July [address] scan abdomen pelvis 09/22/2019 shows 1. Moderate left-sided hydroureteronephrosis secondary to a 1.7 cm calculus of the ureteropelvic junction. Additional large nonobstructing calculi are noted within the left kidney. 2. Mild right-sided hydronephrosis secondary to a 7 x 4 x 12 mm calculus of the proximal right ureter at the level of L3-L4. 3. Prior Whipple procedure. 4. Trace left pleural effusion. 5. Mild stranding surrounding the pancreatic tail may be secondary to the aforementioned reactive changes of the left kidney. 6. Hepatomegaly with hepatic steatosis. (3) A-fib: Patient traditionally is on aspirin Eliquis 5 twice daily but there is no rate controlling medications listed. (4) Diabetes: Patient typically takes 70/30 insulin 18 units twice daily this will be changed to basal bolus (5) H/O pancreatic cancer: Patient typically takes Creon there is pancreatic inflammation seen on intake CT scan, admission lipase is low (6) Depression with anxiety: Patient is on Celexa, Topamax and trazodone these will be maintained (7) Stroke: Patient has history of cerebral aneurysm clipping in 1998 associated stroke. Patient takes antiplatelets of aspirin and pravastatin (8) DVT prophylaxis: scd /heparinfor dvt prevention, is stable in 24 hours may restart eliquis, if not will continue heparin History of Present Illness Primary Care Provider: Michael Sepulveda 63-year-old female presents emergency department for altered mental status via EMS. Per EMS, the patient was picked up at her home for altered mental status. Patient son is arrived and says the patient been feeling poorly for a few days she is not taken any of her Eliquis or Creon for 1 week because they ran out of those prescriptions. Patient is mostly complaining of abdominal pain having some frequent loose bowel movements. Patient denies having any coughing chest pain contact with ill people. In the emergency department she appears to be septic from a urinary source Allergies Allergy/AdvReac Type Severity Reaction Status Date / Time Iodinated Contrast Media Allergy Severe HIVES, Verified 09/22/19 11:[address] DYE iodine Allergy Severe airway Verified 09/22/19 11:39 swells shut amoxicillin Allergy Intermediate RASH Verified 09/22/19 11:39 ceftriaxone Allergy Intermediate RASH Verified 09/22/19 11:39 adhesive Allergy Mild RASH AND Verified 09/22/19 11:39 SORE SKIN FROM TAPE ADHESIVES azithromycin [From Zithromax] Allergy Mild Hives Verified 09/22/19 11:39 alcohol Allergy Unknown Unknown Verified 09/22/19 11:49 atorvastatin Allergy Unknown RASH Verified 09/22/19 11:39 Bactrim Allergy Unknown UNKNOWN Verified 07/24/17 06:56 isopropyl alcohol Allergy Unknown RASH Verified 09/22/19 11:39 lemon Allergy Unknown RASH Verified 09/22/19 11:39 lorazepam Allergy Unknown RASH Verified 09/22/19 11:39 morphine Allergy Unknown stops heart Verified 09/22/19 11:39 rosuvastatin Allergy Unknown RASH Verified 09/22/19 11:39 shellfish derived Allergy Unknown AIRWAY Verified 09/22/19 11:39 SHUTS sulfamethoxazole Allergy Unknown UNKNOWN Verified 09/22/19 11:39 trimethoprim Allergy Unknown UNKNOWN Verified 09/22/19 11:39 latex Allergy Rash Verified 09/22/19 11:39 metformin Allergy Unknown Verified 09/22/19 11:39 Cipro AdvReac Unknown INTERFERES Verified 07/24/17 06:56 WITH COUMADIN ciprofloxacin AdvReac Unknown INTERFERES Verified 09/22/19 11:39 WITH COUMADIN ezetimibe AdvReac Unknown RAPID Verified 09/22/19 11:39 HEART BEAT gemfibrozil AdvReac Unknown MYALGIAS Verified 09/22/19 11:39 lovastatin AdvReac Unknown MYALGIAS Verified 09/22/19 11:39 tramadol AdvReac Unknown CHEST Verified 09/22/19 11:39 TIGHTNESS Home Medications Home Medications Medication Instructions Recorded Confirmed Type Eliquis 5 mg PO BID 12/10/17 09/22/19 History citalopram [Celexa] 20 mg PO HS 12/10/17 09/22/19 History fenofibrate nanocrystallized 145 mg PO QAM 12/10/17 09/22/19 History [Tricor] gabapentin 100 mg PO TID 12/10/17 09/22/19 History magnesium oxide [MagOx] 400 mg PO BID 12/10/17 09/22/19 History sucralfate [Carafate] 1 g PO QID 12/10/17 09/22/19 History aspirin [Ecotrin Low Strength] 81 mg PO QAM #30 tab 12/11/17 09/22/19 Rx trazodone 150 mg PO HS 01/06/18 09/22/19 History pravastatin [Pravachol] 20 mg PO QPM 01/21/18 09/22/19 History topiramate [Topamax] 50 mg PO HS 01/21/18 09/22/19 History Creon 24,000 unit PO TIDM 03/12/18 09/22/19 History ascorbic acid (vitamin C) 500 mg PO BID 03/12/18 09/22/19 History cinacalcet [Sensipar] 30 mg PO QPM 03/12/18 09/22/19 History cyanocobalamin (vitamin B-12) 1,000 mcg PO QAM 03/12/18 09/22/19 History [Vitamin B-12] omega-3 fatty acids-fish oil [Fish 1 cap PO QPM 03/12/18 09/22/19 History Oil] cholecalciferol (vitamin D3) 5,000 unit PO BID 05/28/18 09/22/19 History [Vitamin D3] docusate sodium [Col-Rite] 100 mg PO BID 07/03/18 09/22/19 History ondansetron 4 mg PO Q8H PRN 07/03/18 09/22/19 History prochlorperazine maleate 5 mg PO TID 07/03/18 09/22/19 History acetaminophen 500 mg capsule 1,000 mg PO Q4H PRN cap 05/02/19 09/22/19 History lubiprostone 24 mcg capsule 24 mcg PO DAILY 05/16/19 09/22/19 History glucagon (human recombinant) 1 mg SUBCUT DIRECTED 07/05/20 07/05/20 History [Glucagon Emergency Kit (human)] glucose 16 g PO DIRECTED PRN 09/22/19 09/22/19 History insulin NPH and regular human 18 unit SUBCUT BIDM 09/22/19 09/22/19 History [Novolin 70/30 U-100 Insulin] multivitamin 1 tab PO QAM 09/22/19 09/22/19 History nystatin 1 applic TOPICAL QID 09/22/19 09/22/19 History potassium chloride 10 meq PO QAM 09/22/19 09/22/19 History Past Med/Surg History Medical History A-fib (Chronic) Abdominal pain (Chronic) Acute left-sided weakness (Resolved) Aneurysm (Chronic) cerebral aneurysm clipping in 1998 in [place] Chronic abdominal pain (Chronic) Depression with anxiety (Chronic) Diabetes (Chronic) Diabetic polyneuropathy (Chronic) H/O pancreatic cancer (Resolved) s/p Whipple procedure Heart disease (Chronic) HTN (hypertension) (Chronic) Kidney disease (Chronic) Migraine headache without aura (Chronic) Pacemaker (Chronic) Pancreatitis, recurrent (Chronic) Stroke (Chronic) Surgical History H/O cystoscopy 07/24/17 - MAC #3, ETT #7.0, Grade 1 View History of abdominal surgery (Resolved) History of Whipple Procedure History of cerebral aneurysm repair (Resolved) right-sided cerebral aneurysm repair in 1998 History of hysterectomy Hx of appendectomy (Resolved) Hx of cholecystectomy (Resolved) Family History Mother , in her 60's from CHF CHF (congestive heart failure) Stroke Father , in his 60's of leukemia Leukemia Other No significant family history Social History Preferred Language: Greenlandic Communication Ability: Effective Visual Impairment: No Limitations Hearing Ability: Normal Auto Battery Builder Required: No Beliefs That Will Affect Care: None Current Living Situation: Spouse current occupational status: retired and disabled current occupation: cleaned ooms at a resort stopping by age 39 Feels Safe at Home: Yes Smoking Status: Unknown if ever smoked Hx Alcohol Use: No Hx Substance Use: No Review of Systems Review of Systems: Moderate distress and fatigue he appears pale and in distress no headache, blurry or double vision no speech or swallowing issues no chest pain, pressure or palpitations no shortness of breath, cough or wheezes Complains of crampy lower abdominal pain left greater than right complaints of diarrhea no dysuria, hematuria or frequency no focal joint pain or swelling Focal back pain on the CVA angle area no bruising, bleeding or rashes no focal signs of weakness or numbness or altered sensation no complaints or anxiety or depression. Physical Exam Physical Exam: The patient appeared ill appearing pale and in distress Vital signs as documented. Head exam is normocephalic atraumatic no scleral icterus Neck is without JVD, thyromegaly, or carotid bruits. Lungs are clear to auscultation, but diminished at the bases Cardiac exam, Rhythm is regular.. No murmurs, rubs or gallops. Abdominal exam reveals hypoactive bowel sounds soft tender lower quadrants left greater than right Extremities are nonedematous and both pedal pulses are normal. Neurologic exam is alert and oriented x2, move arms and limbs without reduction of strength or coordination Skin is without bruises or rashes Results & Data Results & Data ([facility]) Vital Signs (Past 12 Hours) Vital Signs Temp Pulse Pulse Resp BP BP Pulse Ox 09/22/19 11:45 70 22 87/42 L 96 09/22/19 11:36 70 22 86/45 L 95 09/22/19 10:37 70 18 104/47 L 97 09/22/19 10:20 70 18 109/49 L 94 09/22/19 09:43 102.6 F H 73 22 91/52 L 94 PG Care Time/CCT Total # of Minutes Spent Total Time Spent with Patient: Total time spent is greater than 50% in coordination of care (as documented) at patient's floor/unit and/or counseling patient: Coding Level of Care Code 09442 Initial Inpt Care Lvl 3 Diagnoses Sepsis A41.9 Acute kidney injury N17.9 A-fib I48.2 Atrial fibrillation type: chronic Diabetes E11.9; Z79.4 Diabetes mellitus complication status: without complication Diabetes mellitus residential insulin use: with middle or intermediate school principal use Diabetes mellitus type: type 2 H/O pancreatic cancer Z85.07 Depression with anxiety F41.8 Stroke I63.9 DVT prophylaxis Z29.9 (1) Diabetes Diabetes mellitus complication status: without complication Diabetes mellitus middle or intermediate school principal insulin use: with middle or intermediate school principal use Diabetes mellitus type: type 2 Qualified Code(s): E11.9 - Type 2 diabetes mellitus without complications; Z79.4 - exterminator helper (current) use of insulin (2) A-fib Atrial fibrillation type: chronic Qualified Code(s): I48.2 - Chronic atrial fibrillation
[2019-09-22] MEDS ORDERED: PROPOFOL IV EMULSION 10 MG/ML 20 ML VIAL IV ONE (12:06)
[2019-09-22] MEDS ORDERED: ONDANSETRON INJ 2 MG/ML 2 ML VIAL ONE (12:06)
[2019-09-22] MEDS ORDERED: fentaNYL citrate 100 MCG/2 ML VIAL ONE (12:07)
--- NOTE | 2019-09-22 12:37 | Urology Consultation ---
Date of Consultation September 22, 2019 Assessment & Plan (1) Sepsis: Acutely and severely ill 63-year-old female with a very complex medical history of a bilateral obstructing ureteral calculi and suspected infection She is showing significant signs of sepsis and is unable to mentate appropriate ly We have obtained consent for a cystoscopy and bilateral ureteral stent insertionto be completed emergentlythis consent was obtained via her son as we were unable to reach her and she was unable to complete consents on her own todaythis was obtained under emergency circumstances History of Present Illness Attending Physician: Jose Zarate MD History of Present Illness 63-year-old female who was acutely ill on presentation to the emergency room Showing signs of severe sepsis with hemodynamic instability, significant lab aberrations and imaging suggestive of bilateral ureteral obstruction and likely infected urine CT shows numerous stones within the left kidney, significant swelling of the left kidney including hydronephrosis and parenchymal swelling and substantial surrounding stranding Right kidney also shows an obstructing calculus just into the proximal ureter with substantial hydronephrosis Her creatinine is currently 2.29baseline is 0.5 Elevated lactate Elevated white count She is an extremely poor historian secondary to significant encephalopathy upon arrival She is not currently accompanied by family members to assist with history gathering I have spoken with her son on the telephone who has acknowledged the situation and understands what is going on and is consenting to move forward with all treatments as necessary Allergies Allergy/AdvReac Type Severity Reaction Status Date / Time Iodinated Contrast Media Allergy Severe HIVES, Verified 09/22/19 11:[address] DYE iodine Allergy Severe airway Verified 09/22/19 11:39 swells shut amoxicillin Allergy Intermediate RASH Verified 09/22/19 11:39 ceftriaxone Allergy Intermediate RASH Verified 09/22/19 11:39 adhesive Allergy Mild RASH AND Verified 09/22/19 11:39 SORE SKIN FROM TAPE ADHESIVES azithromycin [From Zithromax] Allergy Mild Hives Verified 09/22/19 11:39 alcohol Allergy Unknown Unknown Verified 09/22/19 11:49 atorvastatin Allergy Unknown RASH Verified 09/22/19 11:39 Bactrim Allergy Unknown UNKNOWN Verified 07/24/17 06:56 isopropyl alcohol Allergy Unknown RASH Verified 09/22/19 11:39 lemon Allergy Unknown RASH Verified 09/22/19 11:39 lorazepam Allergy Unknown RASH Verified 09/22/19 11:39 morphine Allergy Unknown stops heart Verified 09/22/19 11:39 rosuvastatin Allergy Unknown RASH Verified 09/22/19 11:39 shellfish derived Allergy Unknown AIRWAY Verified 09/22/19 11:39 SHUTS sulfamethoxazole Allergy Unknown UNKNOWN Verified 09/22/19 11:39 trimethoprim Allergy Unknown UNKNOWN Verified 09/22/19 11:39 latex Allergy Rash Verified 09/22/19 11:39 metformin Allergy Unknown Verified 09/22/19 11:39 Cipro AdvReac Unknown INTERFERES Verified 07/24/17 06:56 WITH COUMADIN ciprofloxacin AdvReac Unknown INTERFERES Verified 09/22/19 11:39 WITH COUMADIN ezetimibe AdvReac Unknown RAPID Verified 09/22/19 11:39 HEART BEAT gemfibrozil AdvReac Unknown MYALGIAS Verified 09/22/19 11:39 lovastatin AdvReac Unknown MYALGIAS Verified 09/22/19 11:39 tramadol AdvReac Unknown CHEST Verified 09/22/19 11:39 TIGHTNESS Home Medications Home Medications Medication Instructions Recorded Confirmed Type Eliquis 5 mg PO BID 12/10/17 09/22/19 History citalopram [Celexa] 20 mg PO HS 12/10/17 09/22/19 History fenofibrate nanocrystallized 145 mg PO QAM 12/10/17 09/22/19 History [Tricor] gabapentin 100 mg PO TID 12/10/17 09/22/19 History magnesium oxide [MagOx] 400 mg PO BID 12/10/17 09/22/19 History sucralfate [Carafate] 1 g PO QID 12/10/17 09/22/19 History aspirin [Ecotrin Low Strength] 81 mg PO QAM #30 tab 12/11/17 09/22/19 Rx trazodone 150 mg PO HS 01/06/18 09/22/19 History pravastatin [Pravachol] 20 mg PO QPM 01/21/18 09/22/19 History topiramate [Topamax] 50 mg PO HS 01/21/18 09/22/19 History Creon 24,000 unit PO TIDM 03/12/18 09/22/19 History ascorbic acid (vitamin C) 500 mg PO BID 03/12/18 09/22/19 History cinacalcet [Sensipar] 30 mg PO QPM 03/12/18 09/22/19 History cyanocobalamin (vitamin B-12) 1,000 mcg PO QAM 03/12/18 09/22/19 History [Vitamin B-12] omega-3 fatty acids-fish oil [Fish 1 cap PO QPM 03/12/18 09/22/19 History Oil] cholecalciferol (vitamin D3) 5,000 unit PO BID 05/28/18 09/22/19 History [Vitamin D3] docusate sodium [Col-Rite] 100 mg PO BID 07/03/18 09/22/19 History ondansetron 4 mg PO Q8H PRN 07/03/18 09/22/19 History prochlorperazine maleate 5 mg PO TID 07/03/18 09/22/19 History acetaminophen 500 mg capsule 1,000 mg PO Q4H PRN cap 05/02/19 09/22/19 History lubiprostone 24 mcg capsule 24 mcg PO DAILY 05/16/19 09/22/19 History glucagon (human recombinant) 1 mg SUBCUT DIRECTED 09/22/19 09/22/19 History [Glucagon Emergency Kit (human)] glucose 16 g PO DIRECTED PRN 09/22/19 09/22/19 History insulin NPH and regular human 18 unit SUBCUT BIDM 09/22/19 09/22/19 History [Novolin 70/30 U-100 Insulin] multivitamin 1 tab PO QAM 09/22/19 09/22/19 History nystatin 1 applic TOPICAL QID 09/22/19 09/22/19 History potassium chloride 10 meq PO QAM 09/22/19 09/22/19 History Patient History Medical History A-fib (Chronic) Abdominal pain (Chronic) Acute left-sided weakness (Resolved) Aneurysm (Chronic) cerebral aneurysm clipping in 1998 in [place] Chronic abdominal pain (Chronic) Depression with anxiety (Chronic) Diabetes (Chronic) Diabetic polyneuropathy (Chronic) H/O pancreatic cancer (Resolved) s/p Whipple procedure Heart disease (Chronic) HTN (hypertension) (Chronic) Kidney disease (Chronic) Migraine headache without aura (Chronic) Pacemaker (Chronic) Pancreatitis, recurrent (Chronic) Stroke (Chronic) Surgical History H/O cystoscopy 07/24/17 - MAC #3, ETT #7.0, Grade 1 View History of abdominal surgery (Resolved) History of Whipple Procedure History of cerebral aneurysm repair (Resolved) right-sided cerebral aneurysm repair in 1998 History of hysterectomy Hx of appendectomy (Resolved) Hx of cholecystectomy (Resolved) Family History Mother , in her 60's from CHF CHF (congestive heart failure) Stroke Father , in his 60's of leukemia Leukemia Other No significant family history Social History Preferred Language: Macedonian Communication Ability: Effective Visual Impairment: No Limitations Hearing Ability: Normal Network Director Required: No Beliefs That Will Affect Care: None Current Living Situation: Spouse current occupational status: retired and disabled current occupation: cleaned ooms at a resort stopping by age 39 Feels Safe at Home: Yes Smoking Status: Unknown if ever smoked Hx Alcohol Use: No Hx Substance Use: No Review of Systems Review of Systems: Unobtainable due to mental health condition Physical Exam Constitutional: well developed, well nourished, + acute distress, + ill appearing and + altered mental status Acutely ill-appearing, difficulty caring on normal communication Neck: neck nontender Respiratory: normal respiratory effort; no respiratory distress and does not use accessory muscles Cardiovascular: Rate/Rhythm: regular rate Vessels: radial pulses present Extremities: no edema Gastrointestinal (Abdomen): Inspection/Auscultation: abdomen normal to inspection (Healed surgical scars) Percussion/Palpation: + abdomen tender and abdomen soft; no guarding Musculoskeletal: Head/Neck/Chest: normocephalic and head atraumatic Extremities: extremities normal to inspection Skin: no rashes and no lesions Trauma: no evidence of skin trauma Neurologic: awake; not obtunded Speech / Cognition: normal speech Motor/Sensory: no tremor Psychiatric: Orientation: alert and oriented x 3 Lymphatic: no lymphadenopathy Results & Data Vital Signs (Past 12 Hours) Vital Signs Temp Pulse Pulse Resp BP BP Pulse Ox 09/22/19 12:06 81 16 95/50 L 95 09/22/19 11:45 70 22 87/42 L 96 09/22/19 11:36 70 22 86/45 L 95 09/22/19 10:37 70 18 104/47 L 97 09/22/19 10:20 70 18 109/49 L 94 09/22/19 09:43 39.2 C H 73 22 91/52 L 94 PG Care Time/CCT Total # of Minutes Spent Total Time Spent with Patient: Total time spent is greater than 50% in coordination of care (as documented) at patient's floor/unit and/or counseling patient: Coding Level of Care Code 33870 Inpt Consult Level 5 Diagnoses Sepsis A41.9 Sepsis acute organ dysfunction status: unspecified Sepsis type: sepsis due to unspecified organism (1) Sepsis Sepsis acute organ dysfunction status: unspecified Sepsis type: sepsis due to unspecified organism Qualified Code(s): A41.9 - Sepsis, unspecified organism
--- NOTE | 2019-09-22 12:39 | Anesthesiology Consultation ---
Date of Service September 22, 2019 Assessment & Plan (1) Encounter for pre-operative examination: Chart Review Chart Review: Acceptable Risk for Surgery Consults Requested none ASA [id number] Proposed Anesthesia Anesthesia Type: MAC Risk / Benefits Reviewed With: PT / POA / Parent / Guardian, Accepts Plan and Informed Consent Obtained History Surgery Operation Date: 09/22/19 12:30 Proposed Procedures p Ureteral Stent Insertion/Removal(Bilateral) - Miguelangel Zarate MD Height/Weight Height: 5 ft 7 in Weight: 84 kg Allergies Allergy/AdvReac Type Severity Reaction Status Date / Time Iodinated Contrast Media Allergy Severe HIVES, Verified 09/22/19 11:[address] DYE iodine Allergy Severe airway Verified 09/22/19 11:39 swells shut amoxicillin Allergy Intermediate RASH Verified 09/22/19 11:39 ceftriaxone Allergy Intermediate RASH Verified 09/22/19 11:39 adhesive Allergy Mild RASH AND Verified 09/22/19 11:39 SORE SKIN FROM TAPE ADHESIVES azithromycin [From Zithromax] Allergy Mild Hives Verified 09/22/19 11:39 alcohol Allergy Unknown Unknown Verified 09/22/19 11:49 atorvastatin Allergy Unknown RASH Verified 09/22/19 11:39 Bactrim Allergy Unknown UNKNOWN Verified 07/24/17 06:56 isopropyl alcohol Allergy Unknown RASH Verified 09/22/19 11:39 lemon Allergy Unknown RASH Verified 09/22/19 11:39 lorazepam Allergy Unknown RASH Verified 09/22/19 11:39 morphine Allergy Unknown stops heart Verified 09/22/19 11:39 rosuvastatin Allergy Unknown RASH Verified 09/22/19 11:39 shellfish derived Allergy Unknown AIRWAY Verified 09/22/19 11:39 SHUTS sulfamethoxazole Allergy Unknown UNKNOWN Verified 09/22/19 11:39 trimethoprim Allergy Unknown UNKNOWN Verified 09/22/19 11:39 latex Allergy Rash Verified 09/22/19 11:39 metformin Allergy Unknown Verified 09/22/19 11:39 Cipro AdvReac Unknown INTERFERES Verified 07/24/17 06:56 WITH COUMADIN ciprofloxacin AdvReac Unknown INTERFERES Verified 09/22/19 11:39 WITH COUMADIN ezetimibe AdvReac Unknown RAPID Verified 09/22/19 11:39 HEART BEAT gemfibrozil AdvReac Unknown MYALGIAS Verified 09/22/19 11:39 lovastatin AdvReac Unknown MYALGIAS Verified 09/22/19 11:39 tramadol AdvReac Unknown CHEST Verified 09/22/19 11:39 TIGHTNESS Medications Home Medications Medication Instructions Recorded Confirmed Last Taken Eliquis 5 mg PO BID 12/10/17 09/22/19 09/21/19 citalopram [Celexa] 20 mg PO HS 12/10/17 09/22/19 09/21/19 fenofibrate nanocrystallized 145 mg PO QAM 12/10/17 09/22/19 09/21/19 [Tricor] gabapentin 100 mg PO TID 12/10/17 09/22/19 09/21/19 magnesium oxide [MagOx] 400 mg PO BID 12/10/17 09/22/19 09/21/19 sucralfate [Carafate] 1 g PO QID 12/10/17 09/22/19 09/21/19 aspirin [Ecotrin Low Strength] 81 mg PO QAM #30 tab 12/11/17 09/22/19 09/21/19 trazodone 150 mg PO HS 01/06/18 09/22/19 09/21/19 pravastatin [Pravachol] 20 mg PO QPM 01/21/18 09/22/19 09/21/19 topiramate [Topamax] 50 mg PO HS 01/21/18 09/22/19 09/21/19 Creon 24,000 unit PO TIDM 03/12/18 09/22/19 08/23/19 ascorbic acid (vitamin C) 500 mg PO BID 03/12/18 09/22/19 09/21/19 cinacalcet [Sensipar] 30 mg PO QPM 03/12/18 09/22/19 09/21/19 cyanocobalamin (vitamin B-12) 1,000 mcg PO QAM 03/12/18 09/22/19 09/21/19 [Vitamin B-12] omega-3 fatty acids-fish oil [Fish 1 cap PO QPM 03/12/18 09/22/19 09/21/19 Oil] cholecalciferol (vitamin D3) 5,000 unit PO BID 05/28/18 09/22/19 09/21/19 [Vitamin D3] docusate sodium [Col-Rite] 100 mg PO BID 04/09/22/19 09/21/19 ondansetron 4 mg PO Q8H PRN 07/03/18 09/22/19 08/20/18 18:00 prochlorperazine maleate 5 mg PO TID 07/03/18 09/22/19 09/21/19 acetaminophen 500 mg capsule 1,000 mg PO Q4H PRN cap 05/02/19 09/22/19 Unknown lubiprostone 24 mcg capsule 24 mcg PO DAILY 05/16/19 09/22/19 09/21/19 glucagon (human recombinant) 1 mg SUBCUT DIRECTED 09/22/19 09/22/19 Unknown [Glucagon Emergency Kit (human)] glucose 16 g PO DIRECTED PRN 09/22/19 09/22/19 Unknown insulin NPH and regular human 18 unit SUBCUT BIDM 09/22/19 09/22/19 09/21/19 21:00 [Novolin 70/30 U-100 Insulin] 18 units multivitamin 1 tab PO QAM 09/22/19 09/22/19 09/21/19 nystatin 1 applic TOPICAL QID 09/22/19 09/22/19 Unknown potassium chloride 10 meq PO QAM 09/22/19 09/22/19 09/21/19 NPO Date Last Intake of Fluids: 09/22/19 Time Last Intake of Fluids: 00:00 Date Last Intake of Solids: 09/22/19 Time Last Intake of Solids: 00:00 Past Medical History Medical History A-fib (Chronic) Abdominal pain (Chronic) Acute left-sided weakness (Resolved) Aneurysm (Chronic) cerebral aneurysm clipping in 1998 in [place] Chronic abdominal pain (Chronic) Depression with anxiety (Chronic) Diabetes (Chronic) Diabetic polyneuropathy (Chronic) H/O pancreatic cancer (Resolved) s/p Whipple procedure Heart disease (Chronic) HTN (hypertension) (Chronic) Kidney disease (Chronic) Migraine headache without aura (Chronic) Pacemaker (Chronic) Pancreatitis, recurrent (Chronic) Stroke (Chronic) Exercise / Class Metabolic Activity III < 4 Walking/Shop/Light housework Past Family History Family History Mother , in her 60's from CHF CHF (congestive heart failure) Stroke Father , in his 60's of leukemia Leukemia Other No significant family history Past Surgical History Surgical History H/O cystoscopy 07/24/17 - MAC #3, ETT #7.0, Grade 1 View History of abdominal surgery (Resolved) History of Whipple Procedure History of cerebral aneurysm repair (Resolved) right-sided cerebral aneurysm repair in 1999 History of hysterectomy Hx of appendectomy (Resolved) Hx of cholecystectomy (Resolved) Past Anesthesia History No Hx of Anesthesia Complications and No Family Hx of Anesthesia Complications History of PONV No Hx of PONV and No Hx of Motion Sickness Social History Smoking Status: Unknown if ever smoked tobacco type: cigarettes Smoking cigarettes per day: 1/2 PPD Hx Alcohol Use: No Hx Substance Use: No substance use type: does not use Physical Exam Vital Signs Last Vital Signs Temp 97.0 F L 09/22/19 12:30 Pulse 68 09/22/19 12:30 Resp 20 09/22/19 12:30 BP 107/56 L 09/22/19 12:30 Pulse Ox 93 09/22/19 12:30 ENMT Mouth: no dentition abnormality Thyromental Distance: > or= 3.5 Finger Breadths Mallampati Class: II Neck normal visual inspection Respiratory normal respiratory effort Auscultation: lungs clear to auscultation bilaterally Cardiovascular Rate/Rhythm: regular rate and regular rhythm Testing Laboratory Results 09/22/19 09:02 09/22/19 09:02 PT 16.5 Seconds (9.0-12.0) H 09/22/19 09:02 INR 1.6 (0.9-1.1) H 09/22/19 09:02 APTT 34.4 Seconds (21.0-31.0) H 09/22/19 09:02 Urine Color Dark Yellow 09/22/19 09:44 Urine Appearance Turbid (Clear) A 09/22/19 09:44 Urine pH 5.0 (4.5-7.5) 09/22/19 09:44 Ur Specific [place] 1.019 (1.000-1.030) 09/22/19 09:44 Urine Protein 2+ (Negative) H 09/22/19 09:44 Urine Glucose (UA) Negative (Negative) 09/22/19 09:44 Urine Ketones Trace (Negative) H 09/22/19 09:44 Urine Nitrite Negative (Negative) 09/22/19 09:44 Ur Leukocyte Esterase 3+ (Negative) H 09/22/19 09:44 Urine WBC (Auto) >30 /hpf (0-5) H 09/22/19 09:44 Urine RBC (Auto) 0-4 /hpf (0-4) 09/22/19 09:44 U Hyaline Cast (Auto) 1-5 /lpf (0-5) 09/22/19 09:44 U Epithel Cells (Auto) 20-30 /lpf (0-5) H 09/22/19 09:44 Urine Bacteria (Auto) 4+ (Negative) H 09/22/19 09:44
[2019-09-22] MEDS ORDERED: GLYCOPYRROLATE 0.2 MG/ML VIAL ONE (13:08)
[2019-09-22] MEDS ORDERED: GLUCOSE 40% GEL 15 GM TUBE PO PRN (13:26)
[2019-09-22] MEDS ORDERED: CARBOHYDRATES FOR HYPOGLYCEMIA PO PRN (13:26)
[2019-09-22] MEDS ORDERED: HYDROmorphone INJ 0.5 MG/0.5 ML SYR IV PRN (13:26)
[2019-09-22] MEDS ORDERED: GLUCAGON FOR INJ 1 MG VIAL SQ PRN (13:26)
[2019-09-22] MEDS ORDERED: DEXTROSE 50% 50 ML SYRINGE IV PRN (13:26)
[2019-09-22] MEDS ORDERED: GLUCOSE 10 TABS/TUBE PO PRN (13:26)
--- NOTE | 2019-09-22 13:31 | Operative Report ---
PG Post Operative Report Pre & Post Diagnosis Operation Date: 09/22/19 12:30 Pre-Op Diagnosis: Bilateral obstructing ureteral calculi. Post-Op Diagnosis: Bilateral obstructing ureteral calculi. I identified the patient and participated in the time-out.: Yes Procedure Operation Date: 09/22/19 12:30 Actual Procedures p Cystoscopy, Bilateral Ureteral Stent Insertion(Bilateral) - Miguelangel Zarate MD Surgeon Jose Zarate MD Front Desk Administrator none Estimated Blood Loss 0 Findings Consistent with Post-Op Diagnosis Specimens none Description of Procedure The patient was identified in the preoperative holding area, appropriate informed consents were reviewed and completed and the patient was transferred to the operative suite. Upon arrival, appropriate antibiotics and anesthesia were administered and the patient was placed in dorsal lithotomy position and prepped and draped in sterile fashion. To begin the case I passed a 22 [place] cystoscope with 30 degree lens. Of note, she had a Schaffer catheter inserted prior to procedurethis was removed so her bladder was empty upon initial entry. That said, there was significant debris within the bladder and it took several moments of irrigation to clear the bladder of all the pus. I was then able to identify the left ureteral orifice and cannulated with a sensor wire. The wire advanced to the kidney without difficulty. Immediately upon entry into the kidney there was a copious amount of pus discharge from the left kidney. I proceeded to place a 6 [place] by 24 centimeters looped stentthere was significant outpouring of purulent urine. There was a good curl in the kidney and the end of the stent was well-positioned in the bladder. I then turned my attention to the right ureteral orifice. I cannulated this with a sensor wire which advanced to the kidney without difficulty. Upon entry into the kidney with the wire there was an immediate discharge of clear appearing urine without purulence. I did place a 6 x 24 cm looped stent on the right seeing a good curl in the kidney. I then left the bladder full and withdrew the scope. I placed a new 16 [place] Schaffer catheter which drained the purulent urine that was accumulating within the bladder. She was reversed of anesthesia and taken to the recovery room in stable condition. She remained hemodynamically stable throughout the procedure I attest to the content of the Intraoperative Record and any orders documented therein. Any exceptions are noted below.
--- NOTE | 2019-09-22 13:40 | Anesthesiology Progress Note ---
Date of Service September 22, 2019 Anesthesia Post Procedure Vital Signs Vital Signs: Temp Pulse Pulse Pulse Resp BP BP 09/22/19 13:30 71 25 H 09/22/19 13:20 97.9 F 76 20 09/22/19 12:30 97.0 F L 68 20 09/22/19 12:06 81 16 95/50 L 09/22/19 11:45 70 22 87/42 L 09/22/19 11:36 70 22 86/45 L 09/22/19 10:37 70 18 104/47 L 09/22/19 10:20 70 18 109/49 L 09/22/19 09:43 102.6 F H 73 22 91/52 L BP Pulse Ox 09/22/19 13:30 101/49 L 98 09/22/19 13:20 104/49 L 97 09/22/19 12:30 107/56 L 93 09/22/19 12:06 95 09/22/19 11:45 96 09/22/19 11:36 95 09/22/19 10:37 97 09/22/19 10:20 94 09/22/19 09:43 94 Transfer of Care Handoff Completed per policy Notes Mental Status: alert / awake / arousable and participated in evaluation Patient Amnestic to Procedure: Yes Nausea / Vomiting: adequately controlled Pain: adequately controlled Airway Patency, RR, SpO2: stable & adequate BP & HR: stable & adequate Hydration State: stable & adequate Anesthetic Complications: no major complications apparent and Pt Satisfied with anesthetic care
[2019-09-22] MEDS ORDERED: PHARMACY GLYCEMIC MGMT CONSULT PRN (13:56)
[2019-09-22] MEDS ORDERED: GABAPENTIN 100 MG CAP PO SCH (14:16)
[2019-09-22] MEDS ORDERED: DAPTOMYCIN CONSULT ACTIVE PRN (14:16)
[2019-09-22] MEDS ORDERED: ICU PROTOCOL FOR HYPERGLYCEMIA PRN (14:16)
[2019-09-22] MEDS ORDERED: PNEUMOCOCCAL ADMINISTRATION CHARGE ONE (14:36)
[2019-09-22] MEDS ORDERED: PNEUMOCOCCAL POLYSACCHARIDES 25 MCG/0.5 ML VIAL/SYR IM ONE (14:36)
[2019-09-22] MEDS: SODIUM CHLORIDE 0.9% 1000ML 1,000 ML IV SCH ×3 (14:37→20:42)
--- NOTE | 2019-09-22 14:38 | Fluoroscopy Report ---
FL retrograde includes kub HISTORY: 63 years-old Female BILATERAL STENT PLACEMENT bilateral ureteral calculi COMPARISON: CT abdomen pelvis 09/22/2019 TECHNIQUE: 2 spot fluoroscopic images of the abdomen were obtained utilizing 5.7 seconds fluoroscopy time FINDINGS: Proximal portions of the bilateral ureteral stents appear to be in satisfactory positioning. The dist al portion of the stents are not imaged. IMPRESSION: Fluoroscopic assistance as above. Please see procedural report for further details. ACT 112: Negative or not required by law. The above report was generated using voice recognition software. It may contain grammatical, syntax o r spelling errors. Electronically signed by: Michel Garcia M.D. 09/22/2019 2:37 PM
--- NOTE | 2019-09-22 14:49 | Pharmacy Report ---
Glycemic Control Consultation - Date of Service September 22, 2019 - Scope Scope: Glycemic Pharmacist consulted for glycemic control and to write orders per [facility] inpatient glycemic control protocol. - Objective Weight: 88.6 kg Accuchecks BSG (last 24hrs): 09/22/19 09/22/19 09/22/19 09:02 13:47 14:13 Glucose 108 H POC Glucose 81 86 09/22/19 14:36 Glucose POC Glucose 88 Laboratory Data (last 24hrs): 09/22/19 09:02 Potassium 4.4 Carbon Dioxide 21 Anion Gap 9.0 Creatinine 2.29 H Est Cr Clr Drug Dosing 27.6 - Recent Pertinent Medications Outpatient Anti-diabetic Regimen: * Novolin 70/30 - 18 units BIDM * A1c pending for tomorrow Risk Factors for Insulin Resistance: * Infection: cefepime + daptomycin * Recent Surgery: POD #0 s/p cystoscopy with bilateral ureteral stent insertion * Diet: clear liquid - Assessment & Plan Assessment & Plan: ASSESSMENT: * RD is a 63 year old female POD #0 s/p cystoscopy with bilateral ureteral stent insertion * Treatment with cefepime and daptomycin for suspected urosepsis secondary to bilateral obstructing ureteral calculi * Postoperative BSG of 86 mg/dL PLAN FOR INPATIENT GLYCEMIC CONTROL: * Basal insulin * Patient uses 70/30 at home - favor Lantus at this point due to uncertainty in diet * Lantus scale (0-10 units) SC BID - see EHR for details * Bolus insulin * NovoLog per scale ACHS or Q6hrs while NPO * Goal Range: Low 110 mg/dL - High 140 mg/dL * Correction Factor: 45 mg/dL/unit * Nutritional / Prandial insulin per carb ratio of 1 unit per 15 grams CHO consumed * Please note that the plan above was derived based on current level of insulin resistance and hospital stress. These recommendations are appropriate for inpatient admission only. Plan of care upon discharge will need to be reassessed to avoid potential outpatient hypo/hyperglycemia. Thank you.
[2019-09-22] MEDS: GABAPENTIN 100 MG CAP PO SCH ×2 (16:16→20:44)
[2019-09-22] MEDS: PRAVASTATIN SOD 20 MG TAB PO SCH (16:16)
[2019-09-22] MEDS ORDERED: INSULIN ASPART 100 UNITS/ML 3 ML PEN SC SCH (16:30)
[2019-09-22] MEDS: INSULIN ASPART 100 UNITS/ML 3 ML PEN SC SCH ×2 (17:27→20:50)
[2019-09-22] MEDS: NYSTATIN CR 15 GM TUBE EXT SCH ×2 (17:28→20:42)
[2019-09-22] MEDS: MAGNESIUM OXIDE 400 MG TAB PO SCH (20:44)
[2019-09-22] MEDS: TOPIRAMATE 50 MG TAB PO SCH (20:45)
[2019-09-22] MEDS: HEPARIN SOD 5,000 UNIT/0.5 ML VIAL SQ SCH (20:45)
[2019-09-22] MEDS: CITALOPRAM 20 MG TAB PO SCH (20:45)
[2019-09-22] MEDS: INSULIN GLARGINE SOLOSTAR 100 UNITS/ML 3 ML PEN SC SCH (20:47)
[2019-09-22] MEDS: TRAZODONE HCL 50 MG TAB PO SCH (20:50)
[2019-09-23] MEDS: SODIUM CHLORIDE 0.9% 1000ML 1,000 ML IV SCH ×3 (05:44→08:26)
[2019-09-23 06:53] LABS: Hematocrit (blood only) 34.3 % (37-47); Hemoglobin 10.8 g/dL (12.0-16.0); Mean Corpuscular Hemoglobin 29.9 pg (25-34); Mean Corpuscular Hgb Conc 31.5 g/dL (32-36); Mean Platelet Volume 11.4 fL (7.4-10.4); Platelet Count 143 K/uL (130-400); RDW Coefficient of Variation 17.2 % (11.5-14.5); RDW Standard Deviation 59.6 fL (36.4-46.3); Red Blood Count 3.61 M/uL (4.2-5.4); White Blood Count 19.31 K/uL (4.8-10.8)
[2019-09-23 07:30] LABS: BUN Creatinine Ratio 19.2 (10-20); Calcium 8.9 mg/dl (8.5-10.1); Creatinine Clr Calc Pharmacy 48.3 ml/min; Est GFR (African American) 49.3; Est GFR (Non-African American) 42.5; Magnesium 1.8 mg/dl (1.8-2.4); Phosphorus 2.7 mg/dl (2.5-4.9); Potassium 3.9 mmol/L (3.5-5.1)
[2019-09-23 07:31] LABS: Estimated Average Glucose 163 mg/dl; Hemoglobin A1C 7.3 % (4.5-5.6)
[2019-09-23 07:36] LABS: ALC (manual) 1.18 K/uL (1.2-3.4); ANC (manual) 17.46 K/uL (1.4-6.5); Dohle Bodies 2+; Echinocytes 1+; Lymphocytes # (manual) 1.18 K/uL (1.2-3.4); Lymphocytes % (manual) 6.1 %; Monocytes # (manual) 0.68 K/uL (0.11-0.59); Monocytes % (manual) 3.5 %; Neutrophils # (manual) 17.46 K/uL (1.4-6.5); Neutrophils % (manual) 90.4 %; Toxic Vacuolation 3+
[2019-09-23] MEDS ORDERED: STAT IV STA (07:59)
[2019-09-23] MEDS ORDERED: SODIUM BICARBONATE 8.4% 75 MEQ in SODIUM CHLORIDE 0.45 % 1,000 ML IV SCH (08:00)
[2019-09-23] MEDS: INSULIN ASPART 100 UNITS/ML 3 ML PEN SC SCH ×4 (08:24→23:37)
[2019-09-23] MEDS: INSULIN GLARGINE SOLOSTAR 100 UNITS/ML 3 ML PEN SC SCH ×2 (08:38→20:34)
[2019-09-23] MEDS: HEPARIN SOD 5,000 UNIT/0.5 ML VIAL SQ SCH ×2 (08:38→20:32)
[2019-09-23 08:43] LABS: Base Excess ABG -7.3 mEq/L (-9-1.8); HCO3 ABG 17 mmol/L (19-24); Oxygen Saturation ABG 86.5 % (90-95); PCO2 ABG 28 mmHg (35-46); PO2 ABG 56 mmHg (80-95); pH ABG 7.39 (7.35-7.45)
[2019-09-23 08:51] LABS: Allen Test Pos (Pos)
--- NOTE | 2019-09-23 08:56 | XRay Report ---
XR chest 1V portable CLINICAL HISTORY: hypoxia dyspnea COMPARISON STUDY: 09/22/2019 FINDINGS: Moderately progressive left basilar infiltrate. This is now associated with a small left ef fusion. Mildly progressive right basilar infiltrate. Prominent pulmonary vasculature. IMPRESSION: 1. Mildly progressive left and to a lesser extent right basilar infiltrative change. 2. Developing components of congestive failure/pulmonary edema. ACT 112: Negative or not required by law. The above report was generated using voice recognition software. It may contain grammatical, syntax or spelling errors. Electronically signed by: Haim Bal M.D. 09/23/2019 8:55 AM
[2019-09-23] MEDS ORDERED: FUROSEMIDE 40 MG in SYRINGE 0 ML IV STA (08:57)
[2019-09-23] MEDS ORDERED: FUROSEMIDE 40 MG/4 ML VIAL IV ONE (08:58)
[2019-09-23] MEDS: MAGNESIUM OXIDE 400 MG TAB PO SCH ×2 (09:08→20:29)
[2019-09-23] MEDS ORDERED: CEFEPIME 2,000 MG in SYRINGE 7.5 ML IV SCH (10:00)
[2019-09-23] MEDS: DAPTOmycin 375 MG in SYRINGE 0 ML IV SCH (11:07)
[2019-09-23] MEDS: GABAPENTIN 100 MG CAP PO SCH ×3 (11:07→20:29)
[2019-09-23] MEDS: NYSTATIN CR 15 GM TUBE EXT SCH ×4 (11:08→20:31)
--- NOTE | 2019-09-23 13:54 | Urology Progress Note ---
Date of Service September 23, 2019 Assessment & Plan (1) Sepsis: POD 1 s/p bilateral stents. Acutely and severely ill 63-year-old female with a very complex medical history of a bilateral obstructing ureteral calculi and suspected infection Likely transfer to ICU. Agree with supportive care. Continue peters for max drainage. Continue broad spectrum Abx. Subjective Postop from stent placement for obstruction issues. Patient had been tolerating well. This afternoon became increasingly more ill. Increased resp rate. Worsening confusion. ICU team is evaluating for transfer. Unable to answer questions due to delirium and acute illness. Urine output good as of last 1-2 hours. Light pink without issues. Review of Systems Review of Systems: Unobtainable due to mental health condition and Unobtainable due to cognitive status Physical Exam Physical Exam: General: Acutely ill and confused. HEENT: Normocephalic Atraumatic. Inspection normal. Cranial Nerves 2-12 Grossly intact. Normal inspection of face. Normal inspection of neck. Psychologic: Delirium Respiratory: Tachy and labored. No use of accessory muscles. No tachypnea or dyspnea. Cardiovascular: tachycardic Skin: [place] and Dry. No rashes or visible lesions. Extremities/Lymphatics: Mod edema Abdomen: Mild distended. : Peetrs with light pink urine.. Results & Data Vital Signs (Past 12 Hours) Vital Signs Temp Pulse Pulse Resp BP BP Pulse Ox 09/23/19 11:55 37.4 C 73 25 H 139/71 76 L 09/23/19 07:50 36.5 C 74 24 114/55 L 89 L 09/23/19 03:39 37.5 C 69 20 128/68 90 PG Care Time/CCT Total # of Minutes Spent Total Time Spent with Patient: Total time spent is greater than 50% in coordination of care (as documented) at patient's floor/unit and/or counseling patient: Coding Level of Care Code 69303 Subseq Hosp Care Lvl 3 Diagnoses Sepsis A41.9 Sepsis acute organ dysfunction status: unspecified Sepsis type: sepsis due to unspecified organism (1) Sepsis Sepsis acute organ dysfunction status: unspecified Sepsis type: sepsis due to unspecified organism Qualified Code(s): A41.9 - Sepsis, unspecified organism
--- NOTE | 2019-09-23 14:09 | Hospitalist Progress Note ---
Date of Service September 23, 2019 Assessment & Plan (1) Acute hypoxemic respiratory failure: repeat CXR on 09/22 with pulmonary edema but also worsening infiltrates she had a non-productive cough prior to intubation differential would be pneumonia, pulmonary edema (cardiogenic vs non- cardiogenic) ABG with respiratory alkalosis, metabolic acidosis intubated afternoon of 09/22, management per ICU staff treat edema with Lasix, good response this morning, repeat dosing this afternoon treat pneumonia with broad spectrum antibiotics (2) Gram-negative bacteremia: due to UTI continue Cefepime, follow up final cultures no fever, WBC going down slowly, procalcitonin going down (3) Sepsis: sepsis due to complicated UTI with ureteral stones two blood cultures and urine culture with gram negative bacilli continue on Cefepime procalcitonin 50 on admission, now it is it 19 no evidence of shock, BP is preserved however, this would constitute severe sepsis as she has organ failure with CAROLA and hypoxic respiratory failure lactic acid normal today, checked twice follow up final cultures, repeat labs in AM, continue antibiotics no fluids needed, BP stable, adequately resuscitated (4) Acute kidney injury: Patient is acute kidney injury with creatinine of 2.29, creatinine on July 2018 was 0.66. due to dehydration and sepsis aggressive IV hydration provided making adequate urine, Cr improved to 1.2 this afternoon K stable HCO3 low, has metabolic acidosis (5) A-fib: holding anticoagulation as she cannot swallow, she had some hematuria (6) Diabetes: Patient typically takes 70/30 insulin 18 units twice daily this will be changed to basal bolus (7) H/O pancreatic cancer: Patient typically takes Creon there is pancreatic inflammation seen on intake CT scan, admission lipase is low (8) Depression with anxiety: Patient is on Celexa, Topamax and trazodone these will be maintained (9) Stroke: Patient has history of cerebral aneurysm clipping in 1998 associated stroke. Patient takes antiplatelets of aspirin and pravastatin (10) DVT prophylaxis: scd /heparinfor dvt prevention, is stable in 24 hours may restart eliquis, if not will continue heparin Admission and Anticipated Discharge Date Admission Date: September 22, 2019 Subjective called by RN this morning, patient with tachypnea, belly breathing, desaturating, requiring 15L oxymask for 95% this was a change from yesterday, was breathing easier and was only on 2L reviewed chart from yesterday, presented septic, bilateral ureteral stones with bilateral ureteral stents placed by Dr. Zarate, tolerated well vitals this morning with preserved blood pressure, HR in the 70-80's on monitor CXR this morning with developing infiltrates with some pulmonary edema, gave Lasix 40mg IV, put out 1100mL since this morning no improvement in breathing lactic acid 1.4 this morning, improved from 3.4 on admission blood and urine cultures growing gram negative bacilli, blood cultures also with Group B strep WBC down to 19k from 20k, Cr 1.32 from 2.2, baseline 0.6 HCO3 low at 18 ABG shows low CO2 and low PaO2 in the 50's hoping that breathing would improve with diuresis but still breathing in the high 30's, accessory muscles, still requiring 15L via mask at [address] Muro, will move to ICU for close monitoring in case she would deteriorate and require emergent intubation I attempted to call her Ayo and son Jaspal but no answer I spoke with her sister Lizzy, she is aware of patient going to ICU and possible need for intubation if breathing deteriorates she said she would reach out to Ayo and I gave her the number for ICU to call patient continued to decline after transfer to ICU, she was intubated repeat labs showed improved lactic acid, improved Cr, improved oxygenation on ABG, still quite acidotic but lactic acid normal procalcitonin going down BNP was markedly elevated in 7000's Review of Systems Review of Systems: Unobtainable due to reduced consciousness Physical Exam Constitutional: + acute distress, + ill appearing, + disheveled, cooperative and + lethargic Eyes: PERRL, conjunctivae normal, anicteric sclerae ENMT: external ear and nose normal, oropharynx normal Neck: trachea midline, no thyromegaly Respiratory: + respiratory distress, + labored breathing, + cough and + tachyp neic Auscultation: + rales (bases); no wheezes Cardiovascular: Rate/Rhythm: regular rate and regular rhythm Heart Sounds: normal S1 and normal S2; no murmur Vessels: no JVD Extremities: normal capillary refill; no edema Gastrointestinal (Abdomen): normal bowel sounds, soft, nontender, no hepatosplenomegaly Musculoskeletal: no cyanosis or clubbing, extremities motor strength 5/5 Skin: no rashes, warm and dry Neurologic: patellar DTR's 2+ bilat, sensation intact and PERRL, EOMI, accommodation nl, no face palsy, no dysarthria Psychiatric: Orientation: oriented to person; + not alert, + not oriented to place and + not oriented to time Lymphatic: no cervical or axillary lymphadenopathy Results & Data Results & Data ([facility]) Vital Signs (Past 12 Hours) Vital Signs Temp Pulse Pulse Resp BP BP Pulse Ox 09/23/19 11:55 37.4 C 73 25 H 139/71 76 L 09/23/19 07:50 36.5 C 74 24 114/55 L 89 L 09/23/19 03:39 37.5 C 69 20 128/68 90 Laboratory Results Laboratory Results - last 24 hr 09/22/19 09/22/19 09/22/19 14:13 14:36 14:40 WBC RBC Hgb Hct MCV MCH MCHC RDW Std Deviation RDW Coeff of Evan Plt Count MPV Neutrophils % (Manual) Lymphocytes % (Manual) Monocytes % (Manual) Neutrophils # (Manual) Total Absolute Neuts Lymphocytes # (Manual) Total Abs Lymphocytes Monocytes # (Manual) Toxic Vacuolation Dohle Bodies Echinocytes ABG pH ABG pCO2 ABG pO2 ABG HCO3 ABG O2 Saturation ABG Base Excess Darwin Test Barometric Pressure Oxygen Given Sodium Potassium Chloride Carbon Dioxide Anion Gap BUN Creatinine Est Cr Clr Drug Dosing Est GFR ( Amer) Est GFR (Non-Af Amer) BUN/Creatinine Ratio Glucose POC Glucose 86 88 Estimat Average Glucose Hemoglobin A1c Lactate Calcium Phosphorus Magnesium Total Bilirubin AST ALT Alkaline Phosphatase Total Protein Albumin Globulin Albumin/Globulin Ratio Procalcitonin Nasal Screen MRSA (PCR) Negative Hepatitis C Ab Screen 09/22/19 09/22/19 09/23/19 16:09 20:34 06:32 WBC 19.31 H RBC 3.61 L Hgb 10.8 L Hct 34.3 L MCV 95.0 MCH 29.9 MCHC 31.5 L RDW Std Deviation 59.6 H RDW Coeff of Eavn 17.2 H Plt Count 143 MPV 11.4 H Neutrophils % (Manual) 90.4 Lymphocytes % (Manual) 6.1 Monocytes % (Manual) 3.5 Neutrophils # (Manual) 17.46 H Total Absolute Neuts 17.46 H Lymphocytes # (Manual) 1.18 L Total Abs Lymphocytes 1.18 L Monocytes # (Manual) 0.68 H Toxic Vacuolation 3+ Dohle Bodies 2+ Echinocytes 1+ ABG pH ABG pCO2 ABG pO2 ABG HCO3 ABG O2 Saturation ABG Base Excess Darwin Test Barometric Pressure Oxygen Given Sodium Potassium Chloride Carbon Dioxide Anion Gap BUN Creatinine Est Cr Clr Drug Dosing Est GFR ( Amer) Est GFR (Non-Af Amer) BUN/Creatinine Ratio Glucose POC Glucose 96 108 H Estimat Average Glucose Hemoglobin A1c Lactate Calcium Phosphorus Magnesium Total Bilirubin AST ALT Alkaline Phosphatase Total Protein Albumin Globulin Albumin/Globulin Ratio Procalcitonin Nasal Screen MRSA (PCR) Hepatitis C Ab Screen 09/23/19 09/23/19 09/23/19 06:32 06:32 06:32 WBC RBC Hgb Hct MCV MCH MCHC RDW Std Deviation RDW Coeff of Evan Plt Count MPV Neutrophils % (Manual) Lymphocytes % (Manual) Monocytes % (Manual) Neutrophils # (Manual) Total Absolute Neuts Lymphocytes # (Manual) Total Abs Lymphocytes Monocytes # (Manual) Toxic Vacuolation Dohle Bodies Echinocytes ABG pH ABG pCO2 ABG pO2 ABG HCO3 ABG O2 Saturation ABG Base Excess Darwin Test Barometric Pressure Oxygen Given Sodium 144 D Potassium 3.9 Chloride 115 H Carbon Dioxide 18 L Anion Gap 10.0 BUN 25 H Creatinine 1.32 H D Est Cr Clr Drug Dosing 48.3 Est GFR ( Amer) 49.3 Est GFR (Non-Af Amer) 42.5 BUN/Creatinine Ratio 19.2 Glucose 113 H POC Glucose Estimat Average Glucose 163 Hemoglobin A1c 7.3 H Lactate Calcium 8.9 Phosphorus 2.7 Magnesium 1.8 Total Bilirubin AST ALT Alkaline Phosphatase Total Protein Albumin Globulin Albumin/Globulin Ratio Procalcitonin Nasal Screen MRSA (PCR) Hepatitis C Ab Screen Neg 09/23/19 09/23/19 09/23/19 06:53 08:31 08:31 WBC RBC Hgb Hct MCV MCH MCHC RDW Std Deviation RDW Coeff of Evan Plt Count MPV Neutrophils % (Manual) Lymphocytes % (Manual) Monocytes % (Manual) Neutrophils # (Manual) Total Absolute Neuts Lymphocytes # (Manual) Total Abs Lymphocytes Monocytes # (Manual) Toxic Vacuolation Dohle Bodies Echinocytes ABG pH 7.39 ABG pCO2 28 L ABG pO2 56 L ABG HCO3 17 L ABG O2 Saturation 86.5 L ABG Base Excess -7.3 Darwin Test Pos Barometric Pressure 733.4 Oxygen Given 5L Sodium Potassium Chloride Carbon Dioxide Anion Gap BUN Creatinine Est Cr Clr Drug Dosing Est GFR ( Amer) Est GFR (Non-Af Amer) BUN/Creatinine Ratio Glucose POC Glucose 141 H Estimat Average Glucose Hemoglobin A1c Lactate 1.7 Calcium Phosphorus Magnesium Total Bilirubin AST ALT Alkaline Phosphatase Total Protein Albumin Globulin Albumin/Globulin Ratio Procalcitonin Nasal Screen MRSA (PCR) Hepatitis C Ab Screen 09/23/19 09/23/19 09/23/19 11:28 14:06 14:06 WBC Pending RBC Pending Hgb Pending Hct Pending MCV Pending MCH Pending MCHC Pending RDW Std Deviation RDW Coeff of Evan Plt Count Pending MPV Neutrophils % (Manual) Lymphocytes % (Manual) Monocytes % (Manual) Neutrophils # (Manual) Total Absolute Neuts Lymphocytes # (Manual) Total Abs Lymphocytes Monocytes # (Manual) Toxic Vacuolation Dohle Bodies Echinocytes ABG pH ABG pCO2 ABG pO2 ABG HCO3 ABG O2 Saturation ABG Base Excess [place] Test Barometric Pressure Oxygen Given Sodium Pending Potassium Pending Chloride Pending Carbon Dioxide Pending Anion Gap Pending BUN Pending Creatinine Pending Est Cr Clr Drug Dosing Pending Est GFR ( Amer) Pending Est GFR (Non-Af Amer) Pending BUN/Creatinine Ratio Pending Glucose Pending POC Glucose 152 H Estimat Average Glucose Hemoglobin A1c Lactate Calcium Pending Phosphorus Magnesium Total Bilirubin Pending AST Pending ALT Pending Alkaline Phosphatase Pending Total Protein Pending Albumin Pending Globulin Pending Albumin/Globulin Ratio Pending Procalcitonin Nasal Screen MRSA (PCR) Hepatitis C Ab Screen 09/23/19 09/23/19 09/23/19 14:06 14:06 14:06 WBC RBC Hgb Hct MCV MCH MCHC RDW Std Deviation RDW Coeff of Evan Plt Count MPV Neutrophils % (Manual) Lymphocytes % (Manual) Monocytes % (Manual) Neutrophils # (Manual) Total Absolute Neuts Lymphocytes # (Manual) Total Abs Lymphocytes Monocytes # (Manual) Toxic Vacuolation Dohle Bodies Echinocytes ABG pH Pending ABG pCO2 Pending ABG pO2 Pending ABG HCO3 Pending ABG O2 Saturation Pending ABG Base Excess Pending Darwin Test Pending Barometric Pressure Oxygen Given Pending Sodium Potassium Chloride Carbon Dioxide Anion Gap BUN Creatinine Est Cr Clr Drug Dosing Est GFR ( Amer) Est GFR (Non-Af Amer) BUN/Creatinine Ratio Glucose POC Glucose Estimat Average Glucose Hemoglobin A1c Lactate Pending Calcium Phosphorus Magnesium Total Bilirubin AST ALT Alkaline Phosphatase Total Protein Albumin Globulin Albumin/Globulin Ratio Procalcitonin Pending Nasal Screen MRSA (PCR) Hepatitis C Ab Screen Medications Administered Current Inpatient Medications Citalopram Hydrobromide (Celexa) 20 mg PO HS TERRY Stop: 10/22/19 20:59 Last Admin: 09/22/19 20:45 Dose: 20 mg Documented by: Dextrose (Dextrose 50%) 25 - 50 ml IV UD PRN; Protocol PRN Reason: Hypoglycemia Protocol Stop: 10/22/19 13:25 Gabapentin (Neurontin) 100 mg PO TID@1200,1700,2100 [facility] Stop: 10/22/19 14:15 Last Admin: 09/23/19 11:07 Dose: 100 mg Documented by: Glucagon (Glucagen) 1 mg SQ UD PRN; Protocol PRN Reason: Hypoglycemia Protocol Stop: 10/22/19 13:25 Glucose (Dex4 Glucose) 4 - 8 tabs PO UD PRN; Protocol PRN Reason: Hypoglycemia Protocol Stop: 10/22/19 13:25 Glucose (Glucose 40%) 15 - 30 gm PO UD PRN; Protocol PRN Reason: Hypoglycemia Protocol Stop: 10/22/19 13:25 Heparin Sodium (Porcine) (Heparin Sodium (Porcine)) 5,000 units SQ Q12 TERRY Stop: 10/22/19 20:59 Last Admin: 09/23/19 08:38 Dose: 5,000 units Documented by: Hydromorphone HCl (Dilaudid) 0.5 mg IV Q4 PRN PRN Reason: Pain Stop: 10/06/19 13:25 Daptomycin 375 mg/ Syringe 7.5 mls @ 3.75 mls/min IV Q24H TERRY; Protocol Stop: 10/02/19 11:59 Last Admin: 09/23/19 11:07 Dose: 3.75 mls/min Documented by: Cefepime HCl 2,000 mg/ Syringe 20 mls @ 5.5 mls/min IV Q12H TERRY; Protocol Stop: 10/03/19 09:59 Insulin Aspart (Novolog Flexpen) 0 units SC ACHS [facility] Stop: 10/22/19 16:29 Last Admin: 09/23/19 12:18 Dose: 2 units Documented by: Insulin Glargine (Lantus Solostar Pen) 0 units SC BID [facility]; Protocol Stop: 10/22/19 20:59 Last Admin: 09/23/19 08:38 Dose: 5 units Documented by: Magnesium Oxide (Mag-Ox) 400 mg PO BID [facility] Stop: 10/22/19 20:59 Last Admin: 09/23/19 09:08 Dose: Not Given Documented by: Miscellaneous (Carbohydrates For Hypoglycemia) 15 - 30 gm PO UD PRN PRN Reason: Hypoglycemia Protocol Stop: 10/22/19 13:25 Miscellaneous (Order Awaiting Action) 1 ea N/A QS [facility] Stop: 10/22/19 15:59 Last Admin: 09/23/19 08:23 Dose: Not Given Documented by: Miscellaneous (Order Awaiting Action) 1 ea N/A QS [facility] Stop: 10/22/19 15:59 Last Admin: 09/23/19 08:23 Dose: Not Given Documented by: Miscellaneous (Icu Protocol For Hyperglycemia) 1 ea N/A PRN PRN; Protocol PRN Reason: Hyperglycemia Protocol Stop: 09/24/19 14:15 Miscellaneous Information (Consult Glycemic Management Pharmacy) 1 ea N/A UD PRN; Protocol PRN Reason: Consult Stop: 10/22/19 13:55 Miscellaneous Information (Consult) 1 ea N/A UD PRN PRN Reason: Consult Stop: 10/22/19 14:15 Nystatin (Nystatin) 1 appln EXT QID [facility] Stop: 10/22/19 16:59 Last Admin: 09/23/19 12:19 Dose: 1 appln Documented by: Pravastatin Sodium (Pravachol) 20 mg PO QDD [facility] Stop: 10/22/19 16:29 Last Admin: 09/22/19 16:16 Dose: Not Given Documented by: Topiramate (Topamax) 50 mg PO [facility] Stop: 10/22/19 20:59 Last Admin: 09/22/19 20:45 Dose: 50 mg Documented by: Trazodone HCl (Desyrel) 150 mg PO [facility] Stop: 10/22/19 20:59 Last Admin: 09/22/19 20:50 Dose: 150 mg Documented by: PG Care Time/CCT Total # of Minutes Spent Total Time Spent: 90 Total Time Spent with Patient: Total time spent is greater than 50% in coordination of care (as documented) at patient's floor/unit and/or counseling patient: Critical Care Time: Yes Total Critical Care Time: 40 Coding Level of Care Code 16285 Subseq Hosp Care Lvl 3 Diagnoses Acute hypoxemic respiratory failure J96.01 Gram-negative bacteremia R78.81 Sepsis A41.9 Acute kidney injury N17.9 A-fib I48.2 Atrial fibrillation type: chronic Diabetes E11.9; Z79.4 Diabetes mellitus complication status: without complication Diabetes mellitus salvage determiner insulin use: with salvage determiner use Diabetes mellitus type: type 2 H/O pancreatic cancer Z85.07 Depression with anxiety F41.8 Stroke I63.9 DVT prophylaxis Z29.9 Additional Codes Critical Care Time - Critical Care Time: Yes ([id number]) (1) Diabetes Diabetes mellitus complication status: without complication Diabetes mellitus penitentiary insulin use: with salvage determiner use Diabetes mellitus type: type 2 Qualified Code(s): E11.9 - Type 2 diabetes mellitus without complications; Z79.4 - intermediate school teacher (current) use of insulin (2) A-fib Atrial fibrillation type: chronic Qualified Code(s): I48.2 - Chronic atrial fibrillation
--- NOTE | 2019-09-23 14:10 | Critical Care Consultation ---
Date of Consultation September 23, 2019 Assessment & Plan (1) Gram-negative bacteremia: Reason Critically Ill: 63-year-old female with sepsis secondary to obstructive uropathy with new onset hypoxic respiratory failure. PLAN: Neuro: Acute encephalopathy -Likely metabolic in origin History stroke -Status post aneurysm clipping 1998 Resp: Acute hypoxic respiratory failure -Noninvasive mechanical ventilation at this time -Subsequent failure requiring invasive mechanical ventilation CV: History atrial fibrillation -Long-term anticoagulation -We will consider rate control: This was not prescribed previously Congestive heart failure Status post pacemaker -Serial troponins, brain natruretic peptide, diuresis. Fluids/Renal: Acute kidney injury: Status post obstruction bilateral: Improving -Reviewed urology notes -Continue Schaffer for maximum drainage ID: Sepsis Multiple organisms: Gram-negative bacilli, group B beta hemolytic Streptococcus -Continue current broad-spectrum antibiotics -Would consider de-escalation of antibiotics suspect Levaquin would cover both group beta strep as well as gram-negative will await further sensitivities however -Repeat blood culture GI/Nutrition: N.p.o. Heme: Anemia DVT prophylaxis: Heparin twice daily Endocrine: ICU hyperglycemia protocol Vascular access: Peripheral IVs Code Status: Full code Disposition: ICU (2) Acute hypoxemic respiratory failure: (3) Hydroureteronephrosis: (4) Acute UTI: (5) CAROLA (acute kidney injury): (6) Sepsis: History of Present Illness Reason for Consultation: Acute hypoxic respiratory failure, bacteremia Requesting Physician: Wojciech Mccallum DO Attending Physician: Wojciech Mccallum DO History of Present Illness Patient is a 63-year-old female who was recently diagnosed with sepsis secondary to a urinary track obstructive uropathy and was recently treated with stents. She was noted to have acute kidney injury, has a history of atrial fibrillation on Eliquis 5 mg twice daily, diabetes, history of pancreatic cancer taking Creon, history of stroke status post cerebral aneurysm clipping in 1998 and depression. Per records she was found by EMS at her home for altered mental status, son reported that she was feeling poorly for the last several days and had not taken her medication because she ran out of her prescriptions. The emergency department she was started on fluids with broad-spectrum antibiotics and taken to the operating room for bilateral stenting. Since that time she has improved her lactic acid doses had resolved however she appears to be third spacing and is having new onset acute hypoxic respiratory failure. Allergies Allergy/AdvReac Type Severity Reaction Status Date / Time Iodinated Contrast Media Allergy Severe HIVES, Verified 09/22/19 11:[address] DYE iodine Allergy Severe airway Verified 09/22/19 11:39 swells shut amoxicillin Allergy Intermediate RASH Verified 09/22/19 11:39 ceftriaxone Allergy Intermediate RASH Verified 09/22/19 11:39 adhesive Allergy Mild RASH AND Verified 09/22/19 11:39 SORE SKIN FROM TAPE ADHESIVES azithromycin [From Zithromax] Allergy Mild Hives Verified 09/22/19 11:39 alcohol Allergy Unknown Unknown Verified 09/22/19 11:49 atorvastatin Allergy Unknown RASH Verified 09/22/19 11:39 Bactrim Allergy Unknown UNKNOWN Verified 07/24/17 06:56 isopropyl alcohol Allergy Unknown RASH Verified 09/22/19 11:39 lemon Allergy Unknown RASH Verified 09/22/19 11:39 lorazepam Allergy Unknown RASH Verified 09/22/19 11:39 morphine Allergy Unknown stops heart Verified 09/22/19 11:39 rosuvastatin Allergy Unknown RASH Verified 09/22/19 11:39 shellfish derived Allergy Unknown AIRWAY Verified 09/22/19 11:39 SHUTS sulfamethoxazole Allergy Unknown UNKNOWN Verified 09/22/19 11:39 trimethoprim Allergy Unknown UNKNOWN Verified 09/22/19 11:39 latex Allergy Rash Verified 09/22/19 11:39 metformin Allergy Unknown Verified 09/22/19 11:39 Cipro AdvReac Unknown INTERFERES Verified 07/24/17 06:56 WITH COUMADIN ciprofloxacin AdvReac Unknown INTERFERES Verified 09/22/19 11:39 WITH COUMADIN ezetimibe AdvReac Unknown RAPID Verified 09/22/19 11:39 HEART BEAT gemfibrozil AdvReac Unknown MYALGIAS Verified 09/22/19 11:39 lovastatin AdvReac Unknown MYALGIAS Verified 09/22/19 11:39 tramadol AdvReac Unknown CHEST Verified 09/22/19 11:39 TIGHTNESS Home Medications Home Medications Medication Instructions Recorded Confirmed Type Eliquis 5 mg PO BID 12/10/17 09/22/19 History citalopram [Celexa] 20 mg PO HS 12/10/17 09/22/19 History fenofibrate nanocrystallized 145 mg PO QAM 12/10/17 09/22/19 History [Tricor] gabapentin 100 mg PO TID 12/10/17 09/22/19 History magnesium oxide [MagOx] 400 mg PO BID 12/10/17 09/22/19 History sucralfate [Carafate] 1 g PO QID 12/10/17 09/22/19 History aspirin [Ecotrin Low Strength] 81 mg PO QAM #30 tab 12/11/17 09/22/19 Rx trazodone 150 mg PO HS 01/06/18 09/22/19 History pravastatin [Pravachol] 20 mg PO QPM 01/21/18 09/22/19 History topiramate [Topamax] 50 mg PO HS 01/21/18 09/22/19 History Creon 24,000 unit PO TIDM 03/12/18 09/22/19 History ascorbic acid (vitamin C) 500 mg PO BID 03/12/18 09/22/19 History cinacalcet [Sensipar] 30 mg PO QPM 03/12/18 09/22/19 History cyanocobalamin (vitamin B-12) 1,000 mcg PO QAM 03/12/18 09/22/19 History [Vitamin B-12] omega-3 fatty acids-fish oil [Fish 1 cap PO QPM 03/12/18 09/22/19 History Oil] cholecalciferol (vitamin D3) 5,000 unit PO BID 05/28/18 09/22/19 History [Vitamin D3] docusate sodium [Col-Rite] 100 mg PO BID 07/03/18 09/22/19 History ondansetron 4 mg PO Q8H PRN 07/03/18 09/22/19 History prochlorperazine maleate 5 mg PO TID 07/03/18 09/22/19 History acetaminophen 500 mg capsule 1,000 mg PO Q4H PRN cap 05/02/19 09/22/19 History lubiprostone 24 mcg capsule 24 mcg PO DAILY 05/16/19 09/22/19 History glucagon (human recombinant) 1 mg SUBCUT DIRECTED 09/22/19 09/22/19 History [Glucagon Emergency Kit (human)] glucose 16 g PO DIRECTED PRN 09/22/19 09/22/19 History insulin NPH and regular human 18 unit SUBCUT BIDM 09/22/19 09/22/19 History [Novolin 70/30 U-100 Insulin] multivitamin 1 tab PO QAM 09/22/19 09/22/19 History nystatin 1 applic TOPICAL QID 09/22/19 09/22/19 History potassium chloride 10 meq PO QAM 09/22/19 09/22/19 History Patient History Medical History A-fib (Chronic) Abdominal pain (Chronic) Acute left-sided weakness (Resolved) Aneurysm (Chronic) cerebral aneurysm clipping in 1998 in [place] Chronic abdominal pain (Chronic) Depression with anxiety (Chronic) Diabetes (Chronic) Diabetic polyneuropathy (Chronic) H/O pancreatic cancer (Resolved) s/p Whipple procedure Heart disease (Chronic) HTN (hypertension) (Chronic) Kidney disease (Chronic) Migraine headache without aura (Chronic) Pacemaker (Chronic) Pancreatitis, recurrent (Chronic) Stroke (Chronic) Surgical History H/O cystoscopy 07/24/17 - MAC #3, ETT #7.0, Grade 1 View History of abdominal surgery (Resolved) History of Whipple Procedure History of cerebral aneurysm repair (Resolved) right-sided cerebral aneurysm repair in 1998 History of hysterectomy Hx of appendectomy (Resolved) Hx of cholecystectomy (Resolved) Family History Mother , in her 60's from CHF CHF (congestive heart failure) Stroke Father , in his 60's of leukemia Leukemia Other No significant family history Social History Preferred Language: Uzbek Communication Ability: Impaired Visual Impairment: No Limitations Hearing Ability: Normal Point Of Care Technician Required: No Beliefs That Will Affect Care: None Current Living Situation: Spouse Current Living Situation Comment: unk current occupational status: retired and disabled current occupation: cleaned ooms at a resort stopping by age 39 Other Information That Helps Us Care for You: Yes Feels Safe at Home: No Is there a partner from a previous relationship who is making you feel unsafe now?: No Smoking Status: Unknown if ever smoked Hx Substance Use: No (unk) Review of Systems Review of Systems: Unobtainable due to reduced consciousness Physical Exam Physical Exam: General: Drowsy and somnolent Skin: Warm, dry, Head: Atraumatic Ears, nose, mouth and throat: airway patent Cardiovascular: Normal peripheral perfusion Respiratory: Tachypnea, Rales bilaterally Gastrointestinal: Non distended Musculoskeletal: No deformity Limited bedside ultrasound demonstrated bilateral B-lines to the anterior the chest extending to the posterior chest. This would be consistent with hypervolemia/pulmonary edema Results & Data Results & Data ([facility]) Vital Signs (Past 12 Hours) Vital Signs Temp Pulse Pulse Resp BP BP Pulse Ox 09/23/19 11:55 37.4 C 73 25 H 139/71 76 L 09/23/19 07:50 36.5 C 74 24 114/55 L 89 L 09/23/19 03:39 37.5 C 69 20 128/68 90 Laboratory Results 09/23/19 09/23/19 09/23/19 Range/Units 11:28 08:31 08:31 WBC (4.8-10.8) K/uL RBC (4.2-5.4) M/uL Hgb (12.0-16.0) g/dL Hct (37-47) % MCV (80-100) fL MCH (25-34) pg MCHC (32-36) g/dL RDW Std Deviation (36.4-46.3) fL RDW Coeff of Evan (11.5-14.5) % Plt Count (130-400) K/uL MPV (7.4-10.4) fL Neutrophils % (Manual) % Lymphocytes % (Manual) % Monocytes % (Manual) % Neutrophils # (Manual) (1.4-6.5) K/uL Total Absolute Neuts (1.4-6.5) K/uL Lymphocytes # (Manual) (1.2-3.4) K/uL Total Abs Lymphocytes (1.2-3.4) K/uL Monocytes # (Manual) (0.11-0.59) K/uL Toxic Vacuolation Dohle Bodies Echinocytes ABG pH 7.39 (7.35-7.45) ABG pCO2 28 L (35-46) mmHg ABG pO2 56 L (80-95) mmHg ABG HCO3 17 L (19-24) mmol/L ABG O2 Saturation 86.5 L (90-95) % ABG Base Excess -7.3 (-9-1.8) mEq/L Darwin Test Pos (Pos) Barometric Pressure 733.4 mm/Hg Oxygen Given 5L Sodium (136-145) mmol/L Potassium (3.5-5.1) mmol/L Chloride (98-107) mmol/L Carbon Dioxide (21-32) mmol/L Anion Gap (3-11) BUN (7-18) mg/dl Creatinine (0.6-1.2) mg/dl Est Cr Clr Drug Dosing ml/min Est GFR ( Amer) Est GFR (Non-Af Amer) BUN/Creatinine Ratio (10-20) Glucose (70-99) mg/dl POC Glucose 152 H (70-99) mg/dl Estimat Average Glucose mg/dl Hemoglobin A1c (4.5-5.6) % Lactate 1.7 (0.4-2.0) mmol/L Calcium (8.5-10.1) mg/dl Phosphorus (2.5-4.9) mg/dl Magnesium (1.8-2.4) mg/dl Nasal Screen MRSA (PCR) (Negative) Hepatitis C Ab Screen (Neg) 09/23/19 09/23/19 09/23/19 Range/Units 06:53 06:32 06:32 WBC (4.8-10.8) K/uL RBC (4.2-5.4) M/uL Hgb (12.0-16.0) g/dL Hct (37-47) % MCV (80-100) fL MCH (25-34) pg MCHC (32-36) g/dL RDW Std Deviation (36.4-46.3) fL RDW Coeff of Evan (11.5-14.5) % Plt Count (130-400) K/uL MPV (7.4-10.4) fL Neutrophils % (Manual) % Lymphocytes % (Manual) % Monocytes % (Manual) % Neutrophils # (Manual) (1.4-6.5) K/uL Total Absolute Neuts (1.4-6.5) K/uL Lymphocytes # (Manual) (1.2-3.4) K/uL Total Abs Lymphocytes (1.2-3.4) K/uL Monocytes # (Manual) (0.11-0.59) K/uL Toxic Vacuolation Dohle Bodies Echinocytes ABG pH (7.35-7.45) ABG pCO2 (35-46) mmHg ABG pO2 (80-95) mmHg ABG HCO3 (19-24) mmol/L ABG O2 Saturation (90-95) % ABG Base Excess (-9-1.8) mEq/L Darwin Test (Pos) Barometric Pressure mm/Hg Oxygen Given Sodium (136-145) mmol/L Potassium (3.5-5.1) mmol/L Chloride (98-107) mmol/L Carbon Dioxide (21-32) mmol/L Anion Gap (3-11) BUN (7-18) mg/dl Creatinine (0.6-1.2) mg/dl Est Cr Clr Drug Dosing ml/min Est GFR ( Amer) Est GFR (Non-Af Amer) BUN/Creatinine Ratio (10-20) Glucose (70-99) mg/dl POC Glucose 141 H (70-99) mg/dl Estimat Average Glucose 163 mg/dl Hemoglobin A1c 7.3 H (4.5-5.6) % Lactate (0.4-2.0) mmol/L Calcium (8.5-10.1) mg/dl Phosphorus (2.5-4.9) mg/dl Magnesium (1.8-2.4) mg/dl Nasal Screen MRSA (PCR) (Negative) Hepatitis C Ab Screen Neg (Neg) 09/23/19 09/23/19 09/22/19 Range/Units 06:32 06:32 20:34 WBC 19.31 H (4.8-10.8) K/uL RBC 3.61 L (4.2-5.4) M/uL Hgb 10.8 L (12.0-16.0) g/dL Hct 34.3 L (37-47) % MCV 95.0 (80-100) fL MCH 29.9 (25-34) pg MCHC 31.5 L (32-36) g/dL RDW Std Deviation 59.6 H (36.4-46.3) fL RDW Coeff of Evan 17.2 H (11.5-14.5) % Plt Count 143 (130-400) K/uL MPV 11.4 H (7.4-10.4) fL Neutrophils % (Manual) 90.4 % Lymphocytes % (Manual) 6.1 % Monocytes % (Manual) 3.5 % Neutrophils # (Manual) 17.46 H (1.4-6.5) K/uL Total Absolute Neuts 17.46 H (1.4-6.5) K/uL Lymphocytes # (Manual) 1.18 L (1.2-3.4) K/uL Total Abs Lymphocytes 1.18 L (1.2-3.4) K/uL Monocytes # (Manual) 0.68 H (0.11-0.59) K/uL Toxic Vacuolation 3+ Dohle Bodies 2+ Echinocytes 1+ ABG pH (7.35-7.45) ABG pCO2 (35-46) mmHg ABG pO2 (80-95) mmHg ABG HCO3 (19-24) mmol/L ABG O2 Saturation (90-95) % ABG Base Excess (-9-1.8) mEq/L Darwin Test (Pos) Barometric Pressure mm/Hg Oxygen Given Sodium 144 D (136-145) mmol/L Potassium 3.9 (3.5-5.1) mmol/L Chloride 115 H (98-107) mmol/L Carbon Dioxide 18 L (21-32) mmol/L Anion Gap 10.0 (3-11) BUN 25 H (7-18) mg/dl Creatinine 1.32 H D (0.6-1.2) mg/dl Est Cr Clr Drug Dosing 48.3 ml/min Est GFR ( Amer) 49.3 Est GFR (Non-Af Amer) 42.5 BUN/Creatinine Ratio 19.2 (10-20) Glucose 113 H (70-99) mg/dl POC Glucose 108 H (70-99) mg/dl Estimat Average Glucose mg/dl Hemoglobin A1c (4.5-5.6) % Lactate (0.4-2.0) mmol/L Calcium 8.9 (8.5-10.1) mg/dl Phosphorus 2.7 (2.5-4.9) mg/dl Magnesium 1.8 (1.8-2.4) mg/dl Nasal Screen MRSA (PCR) (Negative) Hepatitis C Ab Screen (Neg) 09/22/19 09/22/19 09/22/19 Range/Units 16:09 14:40 14:36 WBC (4.8-10.8) K/uL RBC (4.2-5.4) M/uL Hgb (12.0-16.0) g/dL Hct (37-47) % MCV (80-100) fL MCH (25-34) pg MCHC (32-36) g/dL RDW Std Deviation (36.4-46.3) fL RDW Coeff of Evan (11.5-14.5) % Plt Count (130-400) K/uL MPV (7.4-10.4) fL Neutrophils % (Manual) % Lymphocytes % (Manual) % Monocytes % (Manual) % Neutrophils # (Manual) (1.4-6.5) K/uL Total Absolute Neuts (1.4-6.5) K/uL Lymphocytes # (Manual) (1.2-3.4) K/uL Total Abs Lymphocytes (1.2-3.4) K/uL Monocytes # (Manual) (0.11-0.59) K/uL Toxic Vacuolation Dohle Bodies Echinocytes ABG pH (7.35-7.45) ABG pCO2 (35-46) mmHg ABG pO2 (80-95) mmHg ABG HCO3 (19-24) mmol/L ABG O2 Saturation (90-95) % ABG Base Excess (-9-1.8) mEq/L Darwin Test (Pos) Barometric Pressure mm/Hg Oxygen Given Sodium (136-145) mmol/L Potassium (3.5-5.1) mmol/L Chloride (98-107) mmol/L Carbon Dioxide (21-32) mmol/L Anion Gap (3-11) BUN (7-18) mg/dl Creatinine (0.6-1.2) mg/dl Est Cr Clr Drug Dosing ml/min Est GFR ( Amer) Est GFR (Non-Af Amer) BUN/Creatinine Ratio (10-20) Glucose (70-99) mg/dl POC Glucose 96 88 (70-99) mg/dl Estimat Average Glucose mg/dl Hemoglobin A1c (4.5-5.6) % Lactate (0.4-2.0) mmol/L Calcium (8.5-10.1) mg/dl Phosphorus (2.5-4.9) mg/dl Magnesium (1.8-2.4) mg/dl Nasal Screen MRSA (PCR) Negative (Negative) Hepatitis C Ab Screen (Neg) 09/22/19 Range/Units 14:13 WBC (4.8-10.8) K/uL RBC (4.2-5.4) M/uL Hgb (12.0-16.0) g/dL Hct (37-47) % MCV (80-100) fL MCH (25-34) pg MCHC (32-36) g/dL RDW Std Deviation (36.4-46.3) fL RDW Coeff of Evan (11.5-14.5) % Plt Count (130-400) K/uL MPV (7.4-10.4) fL Neutrophils % (Manual) % Lymphocytes % (Manual) % Monocytes % (Manual) % Neutrophils # (Manual) (1.4-6.5) K/uL Total Absolute Neuts (1.4-6.5) K/uL Lymphocytes # (Manual) (1.2-3.4) K/uL Total Abs Lymphocytes (1.2-3.4) K/uL Monocytes # (Manual) (0.11-0.59) K/uL Toxic Vacuolation Dohle Bodies Echinocytes ABG pH (7.35-7.45) ABG pCO2 (35-46) mmHg ABG pO2 (80-95) mmHg ABG HCO3 (19-24) mmol/L ABG O2 Saturation (90-95) % ABG Base Excess (-9-1.8) mEq/L Darwin Test (Pos) Barometric Pressure mm/Hg Oxygen Given Sodium (136-145) mmol/L Potassium (3.5-5.1) mmol/L Chloride (98-107) mmol/L Carbon Dioxide (21-32) mmol/L Anion Gap (3-11) BUN (7-18) mg/dl Creatinine (0.6-1.2) mg/dl Est Cr Clr Drug Dosing ml/min Est GFR ( Amer) Est GFR (Non-Af Amer) BUN/Creatinine Ratio (10-20) Glucose (70-99) mg/dl POC Glucose 86 (70-99) mg/dl Estimat Average Glucose mg/dl Hemoglobin A1c (4.5-5.6) % Lactate (0.4-2.0) mmol/L Calcium (8.5-10.1) mg/dl Phosphorus (2.5-4.9) mg/dl Magnesium (1.8-2.4) mg/dl Nasal Screen MRSA (PCR) (Negative) Hepatitis C Ab Screen (Neg) Coding Level of Care Code Critical Care 1st 30-74 mins Diagnoses Gram-negative bacteremia R78.81 Acute hypoxemic respiratory failure J96.01 Hydroureteronephrosis N13.30 Acute UTI N39.0 CAROLA (acute kidney injury) N17.9 Sepsis A41.9 Sepsis acute organ dysfunction status: unspecified Sepsis type: sepsis due to unspecified organism Time Spent (min) 55 Comment I have personally spent 55 minutes of critical care time in the direct management of this patient. This is a life/limb threatening event. This includes time spent evaluating patient, direct bedside care, chart review, placing orders, interpretation of diagnostic studies, discussion with career development consultant s, patient, and/or family members regarding treatment decisions, as well as other required patient management activities. This time is exclusive of all separately billable procedures, and teaching time and separate from and in addition to any other critical care service time. (1) Sepsis Sepsis acute organ dysfunction status: unspecified Sepsis type: sepsis due to unspecified organism Qualified Code(s): A41.9 - Sepsis, unspecified organism
[2019-09-23 14:20] LABS: Hematocrit (blood only) 33.3 % (37-47); Hemoglobin 10.5 g/dL (12.0-16.0); Mean Corpuscular Hemoglobin 29.8 pg (25-34); Mean Corpuscular Hgb Conc 31.5 g/dL (32-36); Mean Corpuscular Volume 94.6 fL (80-100); Mean Platelet Volume 11.2 fL (7.4-10.4); Platelet Count 149 K/uL (130-400); RDW Coefficient of Variation 17.5 % (11.5-14.5); RDW Standard Deviation 59.8 fL (36.4-46.3); Red Blood Count 3.52 M/uL (4.2-5.4); White Blood Count 18.34 K/uL (4.8-10.8)
[2019-09-23 14:23] LABS: Allen Test Pos (Pos); Base Excess ABG -8.3 mEq/L (-9-1.8); HCO3 ABG 17 mmol/L (19-24); Oxygen Saturation ABG 92.5 % (90-95); PCO2 ABG 32 mmHg (35-46); PO2 ABG 70 mmHg (80-95); pH ABG 7.34 (7.35-7.45)
[2019-09-23 14:35] LABS: Albumin Level 1.2 gm/dl (3.4-5.0); Calcium 8.9 mg/dl (8.5-10.1); Creatinine Clr Calc Pharmacy 52.7 ml/min; Est GFR (African American) 54.8; Est GFR (Non-African American) 47.2; Potassium 3.6 mmol/L (3.5-5.1)
[2019-09-23 14:38] LABS: Albumin Globulin Ratio 0.3 (0.9-2); Globulin 3.6 gm/dl (2.5-4.0); Total Protein 4.8 gm/dl (6.4-8.2)
[2019-09-23 14:49] LABS: Basophils # (auto) 0.01 K/uL (0-0.2); Basophils % (auto) 0.1 %; Dohle Bodies 2+; Echinocytes 1+; Immature Granulocytes # (auto) 0.08 K/uL (0.00-0.02); Immature Granulocytes % (auto) 0.4 %; Lymphocytes % (auto) 7.1 %; Monocytes # (auto) 1.58 K/uL (0.11-0.59); Monocytes % (auto) 8.6 %; Neutrophils # (auto) 15.37 K/uL (1.4-6.5); Neutrophils % (auto) 83.8 %; Toxic Vacuolation 2+
[2019-09-23] MEDS ORDERED: RAPID SEQUENCE INDUCTION BAG ONE (14:49)
--- NOTE | 2019-09-23 15:00 | Procedure Note ---
Procedure Note Date of Service September 23, 2019 Procedure Date: Noted above Procedure: Endotracheal intubation Pre-procedure Diagnosis: Acute hypoxic respiratory failure Post-procedure Diagnosis: same as above Prior to Procedure: Informed Consent: emergent Attending Staff: Danni Muro DO The identity of the patient was confirmed and a bedside time out was performed. Description of Procedure: Patient was evaluated and required intubation for impending respiratory failure. The patient was prepared in the usual fashion. A Albert 2 laryngoscope was used. A 8.0 mm inner diameter endotrachial tube was placed endotracheally to 23 cm at the teeth. A grade 1 view was obtained. The endotracheal tube was noted to pass through the vocal cords. Chest rise was bilateral. Bilateral breath sounds were heard without air sounds in the abdomen. Mist was noted in the endotracheal tube. End-tidal CO2 measurement was positive. Chest x-ray shows proper endotracheal tube placement. Complications: None Findings: Not applicable Specimens: Not applicable Estimated blood loss: Zero Coding CPT Codes Resuscitation - Resuscitation: 23075 Endotracheal Intubation, emergency ([id number]) [facility] [place] Procedure Codes (Charges) Resuscitation Resuscitation: 29295 Endotracheal Intubation, emergency
--- NOTE | 2019-09-23 15:21 | XRay Report ---
XR chest 1V portable CLINICAL HISTORY: s/p intubation tube position COMPARISON STUDY: 09/23/2019 8:38 AM FINDINGS: Stable cardiomegaly. Slight increase in consolidative change left base. Endotracheal tube positioned 3 cm above the taisha. Diffuse right hemithoracic parenchymal infiltrate unchanged. IMPRESSION: Endotracheal tube 3 cm above the taisha. Bilateral parenchymal infiltrates with a slight increase in left basilar consolidation compared to the prior exam. ACT 112: Negative or not required by law. The above report was generated using voice recognition software. It may contain grammatical, syntax or spelling errors. Electronically signed by: Haim Bal M.D. 09/23/2019 3:20 PM
[2019-09-23] MEDS ORDERED: FUROSEMIDE 60 MG in SYRINGE 0 ML IV ONE (15:30)
[2019-09-23 15:31] LABS: NT Pro B Type Natriuretic Pept 7781 pg/ml (0-900); Troponin I < 0.015 ng/ml (0-0.045)
[2019-09-23] MEDS: MIDAZOLAM HCL 1 MG/ML 2ML VIAL IV PRN ×4 (16:00→23:16)
[2019-09-23] MEDS ORDERED: Nursing to Pharmacy Communication SCH (16:15)
[2019-09-23] MEDS ORDERED: ETOMIDATE 2 MG/ML 20 ML VIAL IV ONE (16:29)
[2019-09-23] MEDS ORDERED: SUCCINYLCHOLINE CHLORIDE 20 MG/ML 10 ML VIAL IV ONE (16:29)
[2019-09-23] MEDS ORDERED: fentaNYL citrate 100 MCG/2 ML CARP IV ONE (16:29)
[2019-09-23] MEDS: PRAVASTATIN SOD 20 MG TAB PO SCH (16:35)
--- NOTE | 2019-09-23 16:45 | XCELERA ---
[id number]
[2019-09-23] MEDS: fentaNYL citrate 100 MCG/2 ML VIAL IV PRN (17:45)
[2019-09-23] MEDS: TRAZODONE HCL 50 MG TAB PO SCH (20:28)
[2019-09-23] MEDS: CITALOPRAM 20 MG TAB PO SCH (20:28)
[2019-09-23] MEDS: TOPIRAMATE 50 MG TAB PO SCH (20:29)
[2019-09-23] MEDS: CEFEPIME 2,000 MG in SYRINGE 7.5 ML IV SCH (23:14)
[2019-09-24] MEDS ORDERED: PROPOFOL BOLUS FROM BAG IV PRN (00:44)
[2019-09-24] MEDS ORDERED: STAT IV Infusion **Titration per Protocol STA (00:44)
[2019-09-24] MEDS ORDERED: PROPOFOL IV EMULSION 10 MG/ML 100 ML VIAL IV ONE (00:51)
[2019-09-24] MEDS: propofoL 1,000 MG/100 ML VIAL IV SCH ×8 (00:55→16:25)
[2019-09-24] MEDS ORDERED: FUROSEMIDE 40 MG in SYRINGE 0 ML IV ONE (03:17)
[2019-09-24] MEDS ORDERED: FUROSEMIDE 40 MG/4 ML VIAL IV ONE (03:18)
[2019-09-24 03:37] LABS: Hematocrit (blood only) 33.3 % (37-47); Hemoglobin 10.6 g/dL (12.0-16.0); Mean Corpuscular Hemoglobin 29.6 pg (25-34); Mean Corpuscular Hgb Conc 31.8 g/dL (32-36); Mean Platelet Volume 11.1 fL (7.4-10.4); Platelet Count 153 K/uL (130-400); RDW Coefficient of Variation 17.2 % (11.5-14.5); RDW Standard Deviation 58.8 fL (36.4-46.3); Red Blood Count 3.58 M/uL (4.2-5.4); White Blood Count 14.65 K/uL (4.8-10.8)
[2019-09-24 03:55] LABS: BUN Creatinine Ratio 27.7 (10-20); Blood Urea Nitrogen 34 mg/dl (7-18); Calcium 9.3 mg/dl (8.5-10.1); Carbon Dioxide 20 mmol/L (21-32); Chloride 118 mmol/L (98-107); Creatinine Clr Calc Pharmacy 51.4 ml/min; Est GFR (African American) 53.2; Est GFR (Non-African American) 45.9; Glucose 164 mg/dl (70-99); Magnesium 1.8 mg/dl (1.8-2.4); Potassium 3.1 mmol/L (3.5-5.1); Sodium 148 mmol/L (136-145)
[2019-09-24 04:01] LABS: Dohle Bodies 2+; Lymphocytes % (manual) 15.7 %; Monocytes # (manual) 0.25 K/uL (0.11-0.59); Monocytes % (manual) 1.7 %; Neutrophils % (manual) 82.6 %; Polychromasia 1+; Toxic Granulation Occasional; Toxic Vacuolation Occasional
[2019-09-24 04:02] LABS: Phosphorus 1.7 mg/dl (2.5-4.9); Troponin I < 0.015 ng/ml (0-0.045)
[2019-09-24] MEDS ORDERED: POTASSIUM PHOS 3 MMOL/1 ML INFUSION IV STA (04:12)
[2019-09-24] MEDS: POTASSIUM CHLORIDE / WTR 10 MEQ/100 ML PLCT IV SCH ×2 (04:24→05:33)
[2019-09-24] MEDS: MAGNESIUM SULFATE / D5W 1 GM/100 ML BAG IV SCH ×2 (04:24→06:06)
[2019-09-24] MEDS ORDERED: POTASSIUM PHOSPHATE 30 MMOL in SODIUM CHLORIDE 0.9% 500 ML IV ONE (05:00)
[2019-09-24] MEDS: ACETAMINOPHEN 650 MG SUPP PR PRN (05:12)
[2019-09-24 05:19] LABS: iSTAT Allen Test Pass; iSTAT Art Bld Gas pCO2 Correct 28 mmHg (35-46); iSTAT Art Bld Gas pH Corrected 7.404 (7.35-7.45); iSTAT Arterial Blood Gas HCO3 17 meg/L (19-24); iSTAT Arterial Blood Gas pCO2 26 mmHg (35-46); iSTAT Arterial Blood Gas pH 7.43 (7.35-7.45); iSTAT Arterial Blood Gas pO2 66 mmHg (80-95); iSTAT Arterial Blood Gas pO2 C 75; iSTAT Carbon Dioxide 18 mmol/L (24-31); iSTAT Hematocrit 30 % (37-47); iSTAT Hemoglobin 10.2 g/dl (12.0-16.0); iSTAT Potassium 3.3 mmol/L (3.3-5.0); iSTAT Site L Radial; iSTAT Sodium 144 mmol/L (135-144)
[2019-09-24] MEDS: fentaNYL citrate 100 MCG/2 ML VIAL IV PRN ×2 (05:20→16:18)
[2019-09-24] MEDS: INSULIN ASPART 100 UNITS/ML 3 ML PEN SC SCH ×5 (05:48→23:35)
--- NOTE | 2019-09-24 05:50 | Electrocardiogram Report ---
Test Reason : Blood Pressure : / mmHG Vent. Rate : 085 BPM Atrial Rate : 084 BPM P-R Int : 000 ms QRS Dur : 146 ms QT Int : 420 ms P-R-T Axes : 000 -24 138 degrees QTc Int : 499 ms Ventricular-paced rhythm Abnormal ECG When compared with ECG of 21-AUG-2018 10:57, Vent. rate has increased BY 13 BPM Confirmed by Jose Greene ([id number]) on 09/24/2019 5:49:55 AM Referred By: REFERRED SELF Confirmed By:Jose Greene
--- NOTE | 2019-09-24 08:09 | XRay Report ---
XR chest 1V portable CLINICAL HISTORY: Respiratory failure COMPARISON STUDY: 09/23/2019 FINDINGS: There is a left subclavian dual-chamber central venous pacemaker present. There is an endot dot tube positioned 18 mm above the taisha. There are persistent bilateral pulmonary airspace opa cities. A trace left pleural effusion cannot be excluded. IMPRESSION: Persistent bilateral pulmonary airspace opacities ACT 112: Negative or not required by law. Electronically signed by: Luis Davis M.D. 09/24/2019 8:08 AM
[2019-09-24] MEDS: MAGNESIUM OXIDE 400 MG TAB PO SCH ×3 (08:36→20:06)
[2019-09-24] MEDS: INSULIN GLARGINE SOLOSTAR 100 UNITS/ML 3 ML PEN SC SCH ×2 (08:37→20:04)
[2019-09-24] MEDS: HEPARIN SOD 5,000 UNIT/0.5 ML VIAL SQ SCH ×2 (08:37→20:00)
[2019-09-24] MEDS: NYSTATIN CR 15 GM TUBE EXT SCH ×4 (08:37→20:01)
--- NOTE | 2019-09-24 09:09 | Critical Care Progress Note ---
Date of Service September 24, 2019 Assessment & Plan (1) Gram-negative bacteremia: Reason Critically Ill: 63-year-old female with sepsis secondary to obstructive uropathy with new onset hypoxic respiratory failure. PLAN: Neuro: Acute encephalopathy -Likely metabolic in origin Sedation and analgesia: -Propofol infusion and fentanyl IV pushes History stroke -Status post aneurysm clipping 1998 Resp: Acute hypoxic respiratory failure -Invasive mechanical ventilation day 2 -We will obtain sputum cultures -Suspect volume overload/cardiac dyssynchrony CV: History atrial fibrillation -Long-term anticoagulation -We will consider rate control: This was not prescribed previously Congestive heart failure -Elevated BNP, troponins within normal limits -Reviewed echo, normal EF IVC with reduced inspiratory collapse: Would be indicative of volume overload Status post pacemaker -Serial troponins, brain natruretic peptide, diuresis. Fluids/Renal: Acute kidney injury: Status post obstruction bilateral: Improving -Reviewed urology notes -Continue Schaffer for maximum drainage Hypokalemia Hypophosphatemia: 30 mmol potassium phosphate ordered Hypernatremia ID: Sepsis Multiple organisms: Gram-negative bacilli: X3, group B beta hemolytic Streptococcus -Continue current broad-spectrum antibiotics -Would consider de-escalation of antibiotics suspect Levaquin would cover both group beta strep as well as gram-negative will await further sensitivities however -Repeat blood culture: Pending GI/Nutrition: N.P.O. Transaminitis -Most consistent with congestive hepatopathy -Hepatitis C previously negative Heme: Anemia DVT prophylaxis: Heparin twice daily Endocrine: ICU hyperglycemia protocol Vascular access: Peripheral IVs Code Status: Full code Disposition: ICU (2) Acute hypoxemic respiratory failure: (3) Hydroureteronephrosis: (4) Acute UTI: (5) CAROLA (acute kidney injury): (6) Sepsis: Admission and Anticipated Discharge Date Admission Date: September 22, 2019 Subjective No overnight events, failed spontaneous breathing trial this morning secondary to oxygen desaturation and tachypnea Review of Systems Review of Systems: Unobtainable due to endotracheal tube Physical Exam Physical Exam: General: Drowsy and somnolent Skin: Warm, dry, Head: Atraumatic Ears, nose, mouth and throat: Obscured by endotracheal tube Cardiovascular: Normal peripheral perfusion Respiratory: Tachypnea, Rales bilaterally Gastrointestinal: Non distended Musculoskeletal: No deformity Results & Data Results & Data ([facility]) Vital Signs (Past 12 Hours) Vital Signs Temp Pulse Resp BP Pulse Ox 07/07/20 07:29 72 24 92 09/24/19 06:08 70 93/46 L 92 09/24/19 05:52 70 83/42 L 94 09/24/19 05:39 70 80/37 L 93 09/24/19 05:37 38.1 C H 09/24/19 05:25 70 26 H 94 09/24/19 05:24 70 104/46 L 89 L 09/24/19 05:14 39.0 C H 09/24/19 05:09 70 110/52 L 94 09/24/19 04:39 70 103/48 L 94 09/24/19 04:09 70 108/51 L 94 09/24/19 03:39 70 116/48 L 93 09/24/19 03:09 70 112/51 L 93 09/24/19 02:39 69 112/52 L 94 09/24/19 02:09 70 109/52 L 94 09/24/19 01:49 70 26 H 97 09/24/19 01:39 70 98/45 L 97 09/24/19 01:35 70 108/49 L 97 09/24/19 01:08 79 159/73 H 95 09/24/19 00:39 37.1 C 78 164/73 H 94 09/24/19 00:09 76 180/76 H 94 09/23/19 23:39 70 128/54 L 95 09/23/19 23:09 75 166/75 H 94 09/23/19 22:40 73 29 H 94 09/23/19 22:39 74 169/72 H 94 09/23/19 22:09 70 118/99 94 09/23/19 21:39 70 158/69 H 95 09/23/19 21:09 69 140/69 95 Laboratory Results 09/24/19 09/24/19 09/24/19 Range/Units 05:23 05:04 03:12 WBC (4.8-10.8) K/uL RBC (4.2-5.4) M/uL Hgb (12.0-16.0) g/dL POC Hgb 10.2 L (12.0-16.0) g/dl Hct (37-47) % POC Hct 30 L (37-47) % MCV (80-100) fL MCH (25-34) pg MCHC (32-36) g/dL RDW Std Deviation (36.4-46.3) fL RDW Coeff of Evan (11.5-14.5) % Plt Count (130-400) K/uL MPV (7.4-10.4) fL Immature Gran % (Auto) % Neut % (Auto) % Lymph % (Auto) % Benson % (Auto) % Eos % (Auto) % Baso % (Auto) % Neut # (Auto) (1.4-6.5) K/uL Lymph # (Auto) (1.2-3.4) K/uL Benson # (Auto) (0.11-0.59) K/uL Eos # (Auto) (0-0.5) K/uL Baso # (Auto) (0-0.2) K/uL Immature Gran # (Auto) (0.00-0.02) K/uL Neutrophils % (Manual) % Lymphocytes % (Manual) % Monocytes % (Manual) % Neutrophils # (Manual) (1.4-6.5) K/uL Total Absolute Neuts (1.4-6.5) K/uL Lymphocytes # (Manual) (1.2-3.4) K/uL Total Abs Lymphocytes (1.2-3.4) K/uL Monocytes # (Manual) (0.11-0.59) K/uL Toxic Granulation Toxic Vacuolation Dohle Bodies Polychromasia Echinocytes Sample Site L Radial POC pH 7.43 (7.35-7.45) POC pCO2 26 L (35-46) mmHg POC pO2 66 L (80-95) mmHg POC HCO3 17 L (19-24) andi/L POC Total CO2 18 L (24-31) mmol/L POC Base Excess -7.0 (-9-1.8) andi/L ABG pH (7.35-7.45) ABG pH (Temp Correct) 7.404 (7.35-7.45) ABG pCO2 (35-46) mmHg ABG pCO2 (Temp Corrct 28 L (35-46) mmHg ABG pO2 (80-95) mmHg POC ABG pO2 at Pt Temp 75 ABG HCO3 (19-24) mmol/L POC ABG O2 Sat 94.0 (90-95) % ABG O2 Saturation (90-95) % ABG Base Excess (-9-1.8) mEq/L Darwin Test Pass (Pos) Barometric Pressure mm/Hg Oxygen Given O2 Delivery Device Ventilator POC O2 Rate 12 Minute Ventilation 11.1 Tidal Volume 450 PEEP 5 POC Sodium 144 (135-144) mmol/L Sodium 148 H (136-145) mmol/L POC Potassium 3.3 (3.3-5.0) mmol/L Potassium 3.1 L (3.5-5.1) mmol/L Chloride 118 H (98-107) mmol/L Carbon Dioxide 20 L (21-32) mmol/L Anion Gap 10.0 (3-11) BUN 34 H (7-18) mg/dl Creatinine 1.24 H (0.6-1.2) mg/dl Est Cr Clr Drug Dosing 51.4 ml/min Est GFR ( Amer) 53.2 Est GFR (Non-Af Amer) 45.9 BUN/Creatinine Ratio 27.7 H (10-20) Glucose 164 H (70-99) mg/dl POC Glucose 192 H (70-99) mg/dl Lactate (0.4-2.0) mmol/L Calcium 9.3 (8.5-10.1) mg/dl Phosphorus 1.7 L D (2.5-4.9) mg/dl Magnesium 1.8 (1.8-2.4) mg/dl Total Bilirubin (0.2-1) mg/dl AST (15-37) U/L ALT (12-78) U/L Alkaline Phosphatase (45-117) U/L Troponin I < 0.015 (0-0.045) ng/ml NT-Pro-B Natriuret Pep (0-900) pg/ml Total Protein (6.4-8.2) gm/dl Albumin (3.4-5.0) gm/dl Globulin (2.5-4.0) gm/dl Albumin/Globulin Ratio (0.9-2) Procalcitonin (0-0.5) ng/ml Nasal Screen MRSA (PCR) (Negative) 09/24/19 09/23/19 09/23/19 Range/Units 03:12 23:35 20:59 WBC 14.65 H (4.8-10.8) K/uL RBC 3.58 L (4.2-5.4) M/uL Hgb 10.6 L (12.0-16.0) g/dL POC Hgb (12.0-16.0) g/dl Hct 33.3 L (37-47) % POC Hct (37-47) % MCV 93.0 (80-100) fL MCH 29.6 (25-34) pg MCHC 31.8 L (32-36) g/dL RDW Std Deviation 58.8 H (36.4-46.3) fL RDW Coeff of Evan 17.2 H (11.5-14.5) % Plt Count 153 (130-400) K/uL MPV 11.1 H (7.4-10.4) fL Immature Gran % (Auto) % Neut % (Auto) % Lymph % (Auto) % Benson % (Auto) % Eos % (Auto) % Baso % (Auto) % Neut # (Auto) (1.4-6.5) K/uL Lymph # (Auto) (1.2-3.4) K/uL Benson # (Auto) (0.11-0.59) K/uL Eos # (Auto) (0-0.5) K/uL Baso # (Auto) (0-0.2) K/uL Immature Gran # (Auto) (0.00-0.02) K/uL Neutrophils % (Manual) 82.6 % Lymphocytes % (Manual) 15.7 % Monocytes % (Manual) 1.7 % Neutrophils # (Manual) 12.10 H (1.4-6.5) K/uL Total Absolute Neuts 12.10 H (1.4-6.5) K/uL Lymphocytes # (Manual) 2.30 (1.2-3.4) K/uL Total Abs Lymphocytes 2.30 (1.2-3.4) K/uL Monocytes # (Manual) 0.25 (0.11-0.59) K/uL Toxic Granulation Occasional Toxic Vacuolation Occasional Dohle Bodies 2+ Polychromasia 1+ Echinocytes Sample Site POC pH (7.35-7.45) POC pCO2 (35-46) mmHg POC pO2 (80-95) mmHg POC HCO3 (19-24) andi/L POC Total CO2 (24-31) mmol/L POC Base Excess (-9-1.8) andi/L ABG pH (7.35-7.45) ABG pH (Temp Correct) (7.35-7.45) ABG pCO2 (35-46) mmHg ABG pCO2 (Temp Corrct (35-46) mmHg ABG pO2 (80-95) mmHg POC ABG pO2 at Pt Temp ABG HCO3 (19-24) mmol/L POC ABG O2 Sat (90-95) % ABG O2 Saturation (90-95) % ABG Base Excess (-9-1.8) mEq/L Darwin Test (Pos) Barometric Pressure mm/Hg Oxygen Given O2 Delivery Device POC O2 Rate Minute Ventilation Tidal Volume PEEP POC Sodium (135-144) mmol/L Sodium (136-145) mmol/L POC Potassium (3.3-5.0) mmol/L Potassium (3.5-5.1) mmol/L Chloride (98-107) mmol/L Carbon Dioxide (21-32) mmol/L Anion Gap (3-11) BUN (7-18) mg/dl Creatinine (0.6-1.2) mg/dl Est Cr Clr Drug Dosing ml/min Est GFR ( Amer) Est GFR (Non-Af Amer) BUN/Creatinine Ratio (10-20) Glucose (70-99) mg/dl POC Glucose 183 H (70-99) mg/dl Lactate (0.4-2.0) mmol/L Calcium (8.5-10.1) mg/dl Phosphorus (2.5-4.9) mg/dl Magnesium (1.8-2.4) mg/dl Total Bilirubin (0.2-1) mg/dl AST (15-37) U/L ALT (12-78) U/L Alkaline Phosphatase (45-117) U/L Troponin I < 0.015 (0-0.045) ng/ml NT-Pro-B Natriuret Pep (0-900) pg/ml Total Protein (6.4-8.2) gm/dl Albumin (3.4-5.0) gm/dl Globulin (2.5-4.0) gm/dl Albumin/Globulin Ratio (0.9-2) Procalcitonin (0-0.5) ng/ml Nasal Screen MRSA (PCR) (Negative) 07/06/20 07/06/20 07/06/20 Range/Units 20:33 17:46 14:31 WBC (4.8-10.8) K/uL RBC (4.2-5.4) M/uL Hgb (12.0-16.0) g/dL POC Hgb (12.0-16.0) g/dl Hct (37-47) % POC Hct (37-47) % MCV (80-100) fL MCH (25-34) pg MCHC (32-36) g/dL RDW Std Deviation (36.4-46.3) fL RDW Coeff of Evan (11.5-14.5) % Plt Count (130-400) K/uL MPV (7.4-10.4) fL Immature Gran % (Auto) % Neut % (Auto) % Lymph % (Auto) % Benson % (Auto) % Eos % (Auto) % Baso % (Auto) % Neut # (Auto) (1.4-6.5) K/uL Lymph # (Auto) (1.2-3.4) K/uL Benson # (Auto) (0.11-0.59) K/uL Eos # (Auto) (0-0.5) K/uL Baso # (Auto) (0-0.2) K/uL Immature Gran # (Auto) (0.00-0.02) K/uL Neutrophils % (Manual) % Lymphocytes % (Manual) % Monocytes % (Manual) % Neutrophils # (Manual) (1.4-6.5) K/uL Total Absolute Neuts (1.4-6.5) K/uL Lymphocytes # (Manual) (1.2-3.4) K/uL Total Abs Lymphocytes (1.2-3.4) K/uL Monocytes # (Manual) (0.11-0.59) K/uL Toxic Granulation Toxic Vacuolation Dohle Bodies Polychromasia Echinocytes Sample Site POC pH (7.35-7.45) POC pCO2 (35-46) mmHg POC pO2 (80-95) mmHg POC HCO3 (19-24) andi/L POC Total CO2 (24-31) mmol/L POC Base Excess (-9-1.8) andi/L ABG pH (7.35-7.45) ABG pH (Temp Correct) (7.35-7.45) ABG pCO2 (35-46) mmHg ABG pCO2 (Temp Corrct (35-46) mmHg ABG pO2 (80-95) mmHg POC ABG pO2 at Pt Temp ABG HCO3 (19-24) mmol/L POC ABG O2 Sat (90-95) % ABG O2 Saturation (90-95) % ABG Base Excess (-9-1.8) mEq/L Darwin Test (Pos) Barometric Pressure mm/Hg Oxygen Given O2 Delivery Device POC O2 Rate Minute Ventilation Tidal Volume PEEP POC Sodium (135-144) mmol/L Sodium (136-145) mmol/L POC Potassium (3.3-5.0) mmol/L Potassium (3.5-5.1) mmol/L Chloride (98-107) mmol/L Carbon Dioxide (21-32) mmol/L Anion Gap (3-11) BUN (7-18) mg/dl Creatinine (0.6-1.2) mg/dl Est Cr Clr Drug Dosing ml/min Est GFR ( Amer) Est GFR (Non-Af Amer) BUN/Creatinine Ratio (10-20) Glucose (70-99) mg/dl POC Glucose 189 H 232 H (70-99) mg/dl Lactate (0.4-2.0) mmol/L Calcium (8.5-10.1) mg/dl Phosphorus (2.5-4.9) mg/dl Magnesium (1.8-2.4) mg/dl Total Bilirubin (0.2-1) mg/dl AST (15-37) U/L ALT (12-78) U/L Alkaline Phosphatase (45-117) U/L Troponin I (0-0.045) ng/ml NT-Pro-B Natriuret Pep (0-900) pg/ml Total Protein (6.4-8.2) gm/dl Albumin (3.4-5.0) gm/dl Globulin (2.5-4.0) gm/dl Albumin/Globulin Ratio (0.9-2) Procalcitonin (0-0.5) ng/ml Nasal Screen MRSA (PCR) Negative (Negative) 09/23/19 09/23/19 09/23/19 Range/Units 14:06 14:06 14:06 WBC (4.8-10.8) K/uL RBC (4.2-5.4) M/uL Hgb (12.0-16.0) g/dL POC Hgb (12.0-16.0) g/dl Hct (37-47) % POC Hct (37-47) % MCV (80-100) fL MCH (25-34) pg MCHC (32-36) g/dL RDW Std Deviation (36.4-46.3) fL RDW Coeff of Evan (11.5-14.5) % Plt Count (130-400) K/uL MPV (7.4-10.4) fL Immature Gran % (Auto) % Neut % (Auto) % Lymph % (Auto) % Benson % (Auto) % Eos % (Auto) % Baso % (Auto) % Neut # (Auto) (1.4-6.5) K/uL Lymph # (Auto) (1.2-3.4) K/uL Benson # (Auto) (0.11-0.59) K/uL Eos # (Auto) (0-0.5) K/uL Baso # (Auto) (0-0.2) K/uL Immature Gran # (Auto) (0.00-0.02) K/uL Neutrophils % (Manual) % Lymphocytes % (Manual) % Monocytes % (Manual) % Neutrophils # (Manual) (1.4-6.5) K/uL Total Absolute Neuts (1.4-6.5) K/uL Lymphocytes # (Manual) (1.2-3.4) K/uL Total Abs Lymphocytes (1.2-3.4) K/uL Monocytes # (Manual) (0.11-0.59) K/uL Toxic Granulation Toxic Vacuolation Dohle Bodies Polychromasia Echinocytes Sample Site POC pH (7.35-7.45) POC pCO2 (35-46) mmHg POC pO2 (80-95) mmHg POC HCO3 (19-24) andi/L POC Total CO2 (24-31) mmol/L POC Base Excess (-9-1.8) andi/L ABG pH 7.34 L (7.35-7.45) ABG pH (Temp Correct) (7.35-7.45) ABG pCO2 32 L (35-46) mmHg ABG pCO2 (Temp Corrct (35-46) mmHg ABG pO2 70 L (80-95) mmHg POC ABG pO2 at Pt Temp ABG HCO3 17 L (19-24) mmol/L POC ABG O2 Sat (90-95) % ABG O2 Saturation 92.5 (90-95) % ABG Base Excess -8.3 (-9-1.8) mEq/L Darwin Test Pos (Pos) Barometric Pressure 732.6 mm/Hg Oxygen Given 15 L O2 Delivery Device POC O2 Rate Minute Ventilation Tidal Volume PEEP POC Sodium (135-144) mmol/L Sodium (136-145) mmol/L POC Potassium (3.3-5.0) mmol/L Potassium (3.5-5.1) mmol/L Chloride (98-107) mmol/L Carbon Dioxide (21-32) mmol/L Anion Gap (3-11) BUN (7-18) mg/dl Creatinine (0.6-1.2) mg/dl Est Cr Clr Drug Dosing ml/min Est GFR ( Amer) Est GFR (Non-Af Amer) BUN/Creatinine Ratio (10-20) Glucose (70-99) mg/dl POC Glucose (70-99) mg/dl Lactate (0.4-2.0) mmol/L Calcium (8.5-10.1) mg/dl Phosphorus (2.5-4.9) mg/dl Magnesium (1.8-2.4) mg/dl Total Bilirubin (0.2-1) mg/dl AST (15-37) U/L ALT (12-78) U/L Alkaline Phosphatase (45-117) U/L Troponin I < 0.015 (0-0.045) ng/ml NT-Pro-B Natriuret Pep 7781 H (0-900) pg/ml Total Protein (6.4-8.2) gm/dl Albumin (3.4-5.0) gm/dl Globulin (2.5-4.0) gm/dl Albumin/Globulin Ratio (0.9-2) Procalcitonin 19.72 H (0-0.5) ng/ml Nasal Screen MRSA (PCR) (Negative) 09/23/19 09/23/19 09/23/19 Range/Units 14:06 14:06 14:06 WBC 18.34 H (4.8-10.8) K/uL RBC 3.52 L (4.2-5.4) M/uL Hgb 10.5 L (12.0-16.0) g/dL POC Hgb (12.0-16.0) g/dl Hct 33.3 L (37-47) % POC Hct (37-47) % MCV 94.6 (80-100) fL MCH 29.8 (25-34) pg MCHC 31.5 L (32-36) g/dL RDW Std Deviation 59.8 H (36.4-46.3) fL RDW Coeff of Evan 17.5 H (11.5-14.5) % Plt Count 149 (130-400) K/uL MPV 11.2 H (7.4-10.4) fL Immature Gran % (Auto) 0.4 % Neut % (Auto) 83.8 % Lymph % (Auto) 7.1 % Benson % (Auto) 8.6 % Eos % (Auto) 0.0 % Baso % (Auto) 0.1 % Neut # (Auto) 15.37 H (1.4-6.5) K/uL Lymph # (Auto) 1.30 (1.2-3.4) K/uL Benson # (Auto) 1.58 H (0.11-0.59) K/uL Eos # (Auto) 0.00 (0-0.5) K/uL Baso # (Auto) 0.01 (0-0.2) K/uL Immature Gran # (Auto) 0.08 H (0.00-0.02) K/uL Neutrophils % (Manual) % Lymphocytes % (Manual) % Monocytes % (Manual) % Neutrophils # (Manual) (1.4-6.5) K/uL Total Absolute Neuts (1.4-6.5) K/uL Lymphocytes # (Manual) (1.2-3.4) K/uL Total Abs Lymphocytes (1.2-3.4) K/uL Monocytes # (Manual) (0.11-0.59) K/uL Toxic Granulation Toxic Vacuolation 2+ Dohle Bodies 2+ Polychromasia Echinocytes 1+ Sample Site POC pH (7.35-7.45) POC pCO2 (35-46) mmHg POC pO2 (80-95) mmHg POC HCO3 (19-24) andi/L POC Total CO2 (24-31) mmol/L POC Base Excess (-9-1.8) andi/L ABG pH (7.35-7.45) ABG pH (Temp Correct) (7.35-7.45) ABG pCO2 (35-46) mmHg ABG pCO2 (Temp Corrct (35-46) mmHg ABG pO2 (80-95) mmHg POC ABG pO2 at Pt Temp ABG HCO3 (19-24) mmol/L POC ABG O2 Sat (90-95) % ABG O2 Saturation (90-95) % ABG Base Excess (-9-1.8) mEq/L Darwin Test (Pos) Barometric Pressure mm/Hg Oxygen Given O2 Delivery Device POC O2 Rate Minute Ventilation Tidal Volume PEEP POC Sodium (135-144) mmol/L Sodium 143 (136-145) mmol/L POC Potassium (3.3-5.0) mmol/L Potassium 3.6 (3.5-5.1) mmol/L Chloride 115 H (98-107) mmol/L Carbon Dioxide 15 L (21-32) mmol/L Anion Gap 13.0 H (3-11) BUN 27 H (7-18) mg/dl Creatinine 1.21 H (0.6-1.2) mg/dl Est Cr Clr Drug Dosing 52.7 ml/min Est GFR ( Amer) 54.8 Est GFR (Non-Af Amer) 47.2 BUN/Creatinine Ratio 22.0 H (10-20) Glucose 218 H (70-99) mg/dl POC Glucose (70-99) mg/dl Lactate 1.8 (0.4-2.0) mmol/L Calcium 8.9 (8.5-10.1) mg/dl Phosphorus (2.5-4.9) mg/dl Magnesium (1.8-2.4) mg/dl Total Bilirubin 1.0 D (0.2-1) mg/dl AST 120 H (15-37) U/L ALT 84 H (12-78) U/L Alkaline Phosphatase 80 (45-117) U/L Troponin I (0-0.045) ng/ml NT-Pro-B Natriuret Pep (0-900) pg/ml Total Protein 4.8 L (6.4-8.2) gm/dl Albumin 1.2 L (3.4-5.0) gm/dl Globulin 3.6 (2.5-4.0) gm/dl Albumin/Globulin Ratio 0.3 L (0.9-2) Procalcitonin (0-0.5) ng/ml Nasal Screen MRSA (PCR) (Negative) 09/23/19 09/23/19 Range/Units 11:28 08:31 WBC (4.8-10.8) K/uL RBC (4.2-5.4) M/uL Hgb (12.0-16.0) g/dL POC Hgb (12.0-16.0) g/dl Hct (37-47) % POC Hct (37-47) % MCV (80-100) fL MCH (25-34) pg MCHC (32-36) g/dL RDW Std Deviation (36.4-46.3) fL RDW Coeff of Evan (11.5-14.5) % Plt Count (130-400) K/uL MPV (7.4-10.4) fL Immature Gran % (Auto) % Neut % (Auto) % Lymph % (Auto) % Benson % (Auto) % Eos % (Auto) % Baso % (Auto) % Neut # (Auto) (1.4-6.5) K/uL Lymph # (Auto) (1.2-3.4) K/uL Benson # (Auto) (0.11-0.59) K/uL Eos # (Auto) (0-0.5) K/uL Baso # (Auto) (0-0.2) K/uL Immature Gran # (Auto) (0.00-0.02) K/uL Neutrophils % (Manual) % Lymphocytes % (Manual) % Monocytes % (Manual) % Neutrophils # (Manual) (1.4-6.5) K/uL Total Absolute Neuts (1.4-6.5) K/uL Lymphocytes # (Manual) (1.2-3.4) K/uL Total Abs Lymphocytes (1.2-3.4) K/uL Monocytes # (Manual) (0.11-0.59) K/uL Toxic Granulation Toxic Vacuolation Dohle Bodies Polychromasia Echinocytes Sample Site POC pH (7.35-7.45) POC pCO2 (35-46) mmHg POC pO2 (80-95) mmHg POC HCO3 (19-24) andi/L POC Total CO2 (24-31) mmol/L POC Base Excess (-9-1.8) andi/L ABG pH (7.35-7.45) ABG pH (Temp Correct) (7.35-7.45) ABG pCO2 (35-46) mmHg ABG pCO2 (Temp Corrct (35-46) mmHg ABG pO2 (80-95) mmHg POC ABG pO2 at Pt Temp ABG HCO3 (19-24) mmol/L POC ABG O2 Sat (90-95) % ABG O2 Saturation (90-95) % ABG Base Excess (-9-1.8) mEq/L Darwin Test (Pos) Barometric Pressure mm/Hg Oxygen Given O2 Delivery Device POC O2 Rate Minute Ventilation Tidal Volume PEEP POC Sodium (135-144) mmol/L Sodium (136-145) mmol/L POC Potassium (3.3-5.0) mmol/L Potassium (3.5-5.1) mmol/L Chloride (98-107) mmol/L Carbon Dioxide (21-32) mmol/L Anion Gap (3-11) BUN (7-18) mg/dl Creatinine (0.6-1.2) mg/dl Est Cr Clr Drug Dosing ml/min Est GFR ( Amer) Est GFR (Non-Af Amer) BUN/Creatinine Ratio (10-20) Glucose (70-99) mg/dl POC Glucose 152 H (70-99) mg/dl Lactate 1.7 (0.4-2.0) mmol/L Calcium (8.5-10.1) mg/dl Phosphorus (2.5-4.9) mg/dl Magnesium (1.8-2.4) mg/dl Total Bilirubin (0.2-1) mg/dl AST (15-37) U/L ALT (12-78) U/L Alkaline Phosphatase (45-117) U/L Troponin I (0-0.045) ng/ml NT-Pro-B Natriuret Pep (0-900) pg/ml Total Protein (6.4-8.2) gm/dl Albumin (3.4-5.0) gm/dl Globulin (2.5-4.0) gm/dl Albumin/Globulin Ratio (0.9-2) Procalcitonin (0-0.5) ng/ml Nasal Screen MRSA (PCR) (Negative) Coding Level of Care Code Critical Care 1st 30-74 mins Diagnoses Gram-negative bacteremia R78.81 Acute hypoxemic respiratory failure J96.01 Hydroureteronephrosis N13.30 Acute UTI N39.0 CAROLA (acute kidney injury) N17.9 Sepsis A41.9 Sepsis acute organ dysfunction status: unspecified Sepsis type: sepsis due to unspecified organism Time Spent (min) 45 Comment I have personally spent 45 minutes of critical care time in the direct management of this patient. This is a life/limb threatening event. This inclu janeth time spent evaluating patient, direct bedside care, chart review, placing orders, interpretation of diagnostic studies, discussion with consultants, patient, and/or family members regarding treatment decisions, as well as other required patient management activities. This time is exclusive of all separately billable procedures, and teaching time and separate from and in addition to any other critical care service time. (1) Sepsis Sepsis acute organ dysfunction status: unspecified Sepsis type: sepsis due to unspecified organism Qualified Code(s): A41.9 - Sepsis, unspecified organism
[2019-09-24] MEDS: FAMOTIDINE 20 MG in SYRINGE 3 ML IV SCH (10:01)
[2019-09-24] MEDS: CEFEPIME 2,000 MG in SYRINGE 7.5 ML IV SCH ×2 (10:13→20:59)
[2019-09-24] MEDS ORDERED: PEPTAMEN INTENSE VHP 1.0 CAL 1,000 ML BAG OG SCH (11:00)
[2019-09-24] MEDS ORDERED: DAPTOmycin 375 MG in SYRINGE 0 ML IV SCH (12:00)
[2019-09-24] MEDS: GABAPENTIN 100 MG CAP PO SCH ×6 (12:06→20:06)
[2019-09-24] MEDS: DAPTOmycin 375 MG in SYRINGE 0 ML IV SCH (12:06)
[2019-09-24] MEDS: PEPTAMEN INTENSE VHP 1.0 CAL 1,000 ML BAG OG SCH (12:23)
[2019-09-24 12:45] LABS: BUN Creatinine Ratio 34.3 (10-20); Calcium 9.1 mg/dl (8.5-10.1); Creatinine Clr Calc Pharmacy 54.4 ml/min; Est GFR (Non-African American) 49.2; Potassium 3.8 mmol/L (3.5-5.1)
--- NOTE | 2019-09-24 12:50 | XRay Report ---
XR KUB/Abdomen 1 view CLINICAL HISTORY: New NG placement COMPARISON STUDY: 07/30/2018 FINDINGS: The heart is enlarged. 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 There is an end otracheal tube positioned 21 mm above the taisha. There is a nasogastric tube which is looped back up on itself in the esophagus. The tip is at the cervicothoracic junction. There are bilateral asymmetri c interstitial pulmonary opacities. Left hemidiaphragm is obscured suggesting a small left pleural ef fusion or left basilar atelectasis/consolidation. IMPRESSION: 1. The nasogastric tube is looped back upon itself within the esophagus and needs to be repositioned. ACT 112: Negative or not required by law. Electronically signed by: Luis Davis M.D. 09/24/2019 12:49 PM
--- NOTE | 2019-09-24 13:07 | XRay Report ---
XR KUB/Abdomen 1 view CLINICAL HISTORY: coresafe tube position COMPARISON STUDY: No previous studies for comparison. FINDINGS: Nasogastric tube is not identified on these images. There is no endotracheal tube 3 cm abov e the Taisha. Unchanging consolidative change left lung base. IMPRESSION: 1. No evidence for a nasogastric tube on these images. 2. Endotracheal tube 3 cm above the taisha. ACT 112: Negative or not required by law. The above report was generated using voice recognition software. It may contain grammatical, syntax or spelling errors. Electronically signed by: Haim Bal M.D. 09/24/2019 1:06 PM
--- NOTE | 2019-09-24 13:11 | Urology Progress Note ---
Date of Service September 24, 2019 Assessment & Plan (1) Gram-negative bacteremia: Septicemia; acute life-threatening illness She is status post emergent bilateral stent placement She has had improvement in her creatinine and is maintaining adequate urine output Unfortunately, she remains acutely ill Continue critical care No further interventions planned, we will follow peripherally Subjective Acutely ill 63-year-old female who presented to the emergency room on Monday with sepsis Underwent emergent cystoscopy and bilateral ureteral stent placement for infected and obstructed upper tracts There is significant purulent urine drained from her left kidney, no purulence but significant urine drained from her right kidney She has progressed in regard to kidney function She has maintained good urine output Unfortunately, her acute illness has worsened and she required intubation yesterday and is currently in ICU receiving significant critical care to maintain her function Review of Systems Review of Systems: Unobtainable due to endotracheal tube Physical Exam Constitutional: well nourished and + ill appearing Intubated Respiratory: Endotracheal tube in place Cardiovascular: Rate/Rhythm: + tachycardic Gastrointestinal (Abdomen): Percussion/Palpation: + abdomen tender and abdomen soft Musculoskeletal: Head/Neck/Chest: + head abnormal to inspection and normocephalic Genitourinary: Urine mostly clear with some debris Results & Data Vital Signs (Past 12 Hours) Vital Signs Temp Pulse Resp BP Pulse Ox 09/24/19 12:09 37.6 C H 70 97/58 L 94 09/24/19 11:39 70 98/58 L 93 09/24/19 11:09 70 95/56 L 94 09/24/19 10:39 70 99/56 L 95 09/24/19 10:09 70 111/64 95 09/24/19 10:02 70 102/60 94 09/24/19 09:09 70 93/55 L 93 09/24/19 08:39 70 99/53 L 94 09/24/19 08:09 70 99/54 L 93 09/24/19 08:00 37.7 C H 70 93 09/24/19 07:39 70 88/50 L 93 09/24/19 07:29 72 24 92 09/24/19 07:09 70 95/47 L 92 09/24/19 07:00 70 92 09/24/19 06:08 70 93/46 L 92 09/24/19 05:52 70 83/42 L 94 09/24/19 05:39 70 80/37 L 93 09/24/19 05:37 38.1 C H 09/24/19 05:25 70 26 H 94 09/24/19 05:24 70 104/46 L 89 L 09/24/19 05:14 39.0 C H 09/24/19 05:09 70 110/52 L 94 09/24/19 04:39 70 103/48 L 94 09/24/19 04:09 70 108/51 L 94 09/24/19 03:39 70 116/48 L 93 09/24/19 03:09 70 112/51 L 93 09/24/19 02:39 69 112/52 L 94 09/24/19 02:09 70 109/52 L 94 09/24/19 01:49 70 26 H 97 09/24/19 01:39 70 98/45 L 97 09/24/19 01:35 70 108/49 L 97 PG Care Time/CCT Total # of Minutes Spent Total Time Spent with Patient: Total time spent is greater than 50% in coordination of care (as documented) at patient's floor/unit and/or counseling patient: Coding Level of Care Code 69567 Subseq Hosp Care Lvl 2 Diagnoses Gram-negative bacteremia R78.81
--- NOTE | 2019-09-24 15:21 | Pharmacy Report ---
Pharmacy Glycemic Short Note 2 - Date of Service September 24, 2019 - Glycemic Short BSG Results (Last 24 hours): 09/23/19 09/23/19 09/23/19 17:46 20:33 23:35 Glucose POC Glucose 232 H 189 H 183 H 09/24/19 09/24/19 09/24/19 03:12 05:23 11:52 Glucose 164 H 178 H POC Glucose 192 H 09/24/19 11:54 Glucose POC Glucose 178 H OUTPATIENT ANTIDIABETIC REGIMEN: Outpatient Anti-diabetic Regimen: * Novolin 70/30 - 18 units BIDM * A1c pending for tomorrow Risk Factors for Insulin Resistance: * Infection: cefepime + daptomycin * Recent Surgery: POD #2 s/p cystoscopy with bilateral ureteral stent insertion * Diet: clear liquid ASSESSMENT: * BSGs reasonably controlled over the last 24 hours, receiving 21 units of insulin total (15 basal, 6 units of bolus). BSG did spike yesterday afternoon after a hypoxic event that led to intubation and ICU transfer and was likely in part, a stress response. Fasting BSG was slightly high this morning and Lantus scale was adjusted accordingly. The patient has been NPO but was initiated on Tube feeds and likely will reach goal tomorrow, if tolerating. PLAN FOR INPATIENT GLYCEMIC CONTROL: * Hold outpatient oral diabetes medications * Basal insulin * Lantus 12 units SQ this morning * Per scale this evening (5,8,12 units based on BSG-See MAR for details) * Bolus insulin * NovoLog per scale ACHS or Q6hrs while NPO * Goal Range: Low 110 mg/dL - High 140 mg/dL * Correction Factor: 35 mg/dL/unit * Nutritional / Prandial insulin per carb ratio of 1 unit per 12 grams CHO consumed
--- NOTE | 2019-09-24 15:37 | Hospitalist Progress Note ---
Date of Service September 24, 2019 Assessment & Plan (1) Acute hypoxemic respiratory failure: repeat CXR on 09/22 with pulmonary edema but also worsening infiltrates she had a non-productive cough prior to intubation differential would be pneumonia, pulmonary edema (cardiogenic vs non- cardiogenic) ABG with respiratory alkalosis, metabolic acidosis intubated afternoon of 09/22, management per ICU staff still on ventilator, FiO2 down to 40%, did not do well with SBT this morning continue Propofol try to extubate daily as tolerated (2) Gram-negative bacteremia: due to UTI, urine culture with E coli and Klebsiella blood cultures with three different gram negative bacilli continue Cefepime, follow up final cultures + fever in the past 24 hours, WBC going down (3) Sepsis: sepsis due to complicated UTI with ureteral stones urine culture with E coli and Klebsiella blood cultures with 3 different gram negative bacilli continue on Cefepime and Daptomycin procalcitonin 50 on admission, repeat down to 19 no evidence of shock, BP is preserved however, this would constitute severe sepsis as she has organ failure with CAROLA and hypoxic respiratory failure lactic acid normal 09/22, checked twice follow up final cultures, repeat labs in AM, continue antibiotics no fluids needed, BP stable, adequately resuscitated (4) Acute kidney injury: Patient is acute kidney injury with creatinine of 2.29, creatinine on July 2018 was 0.66. due to dehydration and sepsis aggressive IV hydration provided making adequate urine, Cr improved to 1.2 today, stable K stable HCO3 low, has metabolic acidosis (5) A-fib: holding anticoagulation as she cannot swallow, she had some hematuria (6) Diabetes: Patient typically takes 70/30 insulin 18 units twice daily this will be changed to basal bolus monitor for hypoglycemia, ICU protocol (7) H/O pancreatic cancer: Patient typically takes Creon there is pancreatic inflammation seen on intake CT scan, admission lipase is low (8) Depression with anxiety: Patient is on Celexa, Topamax and trazodone these will be maintained via gastric tube (9) Stroke: Patient has history of cerebral aneurysm clipping in 1998 associated stroke. Patient takes antiplatelets of aspirin and pravastatin (10) DVT prophylaxis: scd /heparinfor dvt prevention, is stable in 24 hours may restart eliquis, if not will continue heparin Admission and Anticipated Discharge Date Admission Date: September 22, 2019 Subjective patient sedated, on ventilator spontaneous breathing trial did not go well this morning, restless and tachypneic, propofol resumed reviewed labs, WBC down to 14k, Cr stable, electrolytes stable urine culture with E coli and Klebsiella, both sensitive to Cefepime discussed with Dr Muro, appreciate his management of patient Review of Systems Review of Systems: Unobtainable due to endotracheal tube Physical Exam Constitutional: + mechanically ventilated Eyes: PERRL, conjunctivae normal, anicteric sclerae ENMT: external ear and nose normal, oropharynx normal Neck: trachea midline, no thyromegaly Respiratory: normal respiratory effort and symmetric chest movement Ausc ultation: + rales (bases); no wheezes Cardiovascular: Rate/Rhythm: regular rate and regular rhythm Heart Sounds: normal S1 and normal S2; no murmur Vessels: no JVD Extremities: normal capillary refill; no edema Gastrointestinal (Abdomen): normal bowel sounds, soft, nontender, no hepatosplenomegaly Musculoskeletal: no cyanosis or clubbing, extremities motor strength 5/5 Skin: no rashes, warm and dry Neurologic: no focal motor deficits Psychiatric: Orientation: + not alert, + not oriented to person, + not oriented to place and + not oriented to time Lymphatic: no cervical or axillary lymphadenopathy Results & Data Results & Data ([facility]) Vital Signs (Past 12 Hours) Vital Signs Temp Pulse Resp BP Pulse Ox 09/24/19 14:00 70 96 09/24/19 13:39 70 107/61 96 09/24/19 13:23 70 25 H 96 09/24/19 13:09 70 100/56 L 95 09/24/19 12:39 70 101/58 L 95 09/24/19 12:09 37.6 C H 70 97/58 L 94 09/24/19 11:39 70 98/58 L 93 09/24/19 11:09 70 95/56 L 94 09/24/19 10:55 70 24 96 09/24/19 10:39 70 99/56 L 95 09/24/19 10:09 70 111/64 95 09/24/19 10:02 70 102/60 94 09/24/19 09:09 70 93/55 L 93 09/24/19 08:39 70 99/53 L 94 09/24/19 08:09 70 99/54 L 93 09/24/19 08:00 37.7 C H 70 93 09/24/19 07:39 70 88/50 L 93 09/24/19 07:29 72 24 92 09/24/19 07:09 70 95/47 L 92 09/24/19 07:00 70 92 09/24/19 06:08 70 93/46 L 92 09/24/19 05:52 70 83/42 L 94 09/24/19 05:39 70 80/37 L 93 09/24/19 05:37 38.1 C H 09/24/19 05:25 70 26 H 94 09/24/19 05:24 70 104/46 L 89 L 09/24/19 05:14 39.0 C H 09/24/19 05:09 70 110/52 L 94 09/24/19 04:39 70 103/48 L 94 09/24/19 04:09 70 108/51 L 94 09/24/19 03:39 70 116/48 L 93 Laboratory Results Laboratory Results - last 24 hr 09/23/19 09/23/19 09/23/19 14:31 17:46 20:33 WBC RBC Hgb POC Hgb Hct POC Hct MCV MCH MCHC RDW Std Deviation RDW Coeff of Evan Plt Count MPV Neutrophils % (Manual) Lymphocytes % (Manual) Monocytes % (Manual) Neutrophils # (Manual) Total Absolute Neuts Lymphocytes # (Manual) Total Abs Lymphocytes Monocytes # (Manual) Toxic Granulation Toxic Vacuolation Dohle Bodies Polychromasia Sample Site POC pH POC pCO2 POC pO2 POC HCO3 POC Total CO2 POC Base Excess ABG pH (Temp Correct) ABG pCO2 (Temp Corrct POC ABG pO2 at Pt Temp POC ABG O2 Sat Darwin Test O2 Delivery Device POC O2 Rate Minute Ventilation Tidal Volume PEEP POC Sodium Sodium POC Potassium Potassium Chloride Carbon Dioxide Anion Gap BUN Creatinine Est Cr Clr Drug Dosing Est GFR ( Amer) Est GFR (Non-Af Amer) BUN/Creatinine Ratio Glucose POC Glucose 232 H 189 H Calcium Phosphorus Magnesium Troponin I Nasal Screen MRSA (PCR) Negative 09/23/19 09/23/19 09/24/19 20:59 23:35 03:12 WBC 14.65 H RBC 3.58 L Hgb 10.6 L POC Hgb Hct 33.3 L POC Hct MCV 93.0 MCH 29.6 MCHC 31.8 L RDW Std Deviation 58.8 H RDW Coeff of Evan 17.2 H Plt Count 153 MPV 11.1 H Neutrophils % (Manual) 82.6 Lymphocytes % (Manual) 15.7 Monocytes % (Manual) 1.7 Neutrophils # (Manual) 12.10 H Total Absolute Neuts 12.10 H Lymphocytes # (Manual) 2.30 Total Abs Lymphocytes 2.30 Monocytes # (Manual) 0.25 Toxic Granulation Occasional Toxic Vacuolation Occasional Dohle Bodies 2+ Polychromasia 1+ Sample Site POC pH POC pCO2 POC pO2 POC HCO3 POC Total CO2 POC Base Excess ABG pH (Temp Correct) ABG pCO2 (Temp Corrct POC ABG pO2 at Pt Temp POC ABG O2 Sat Darwin Test O2 Delivery Device POC O2 Rate Minute Ventilation Tidal Volume PEEP POC Sodium Sodium POC Potassium Potassium Chloride Carbon Dioxide Anion Gap BUN Creatinine Est Cr Clr Drug Dosing Est GFR ( Amer) Est GFR (Non-Af Amer) BUN/Creatinine Ratio Glucose POC Glucose 183 H Calcium Phosphorus Magnesium Troponin I < 0.015 Nasal Screen MRSA (PCR) 09/24/19 09/24/19 09/24/19 03:12 05:04 05:23 WBC RBC Hgb POC Hgb 10.2 L Hct POC Hct 30 L MCV MCH MCHC RDW Std Deviation RDW Coeff of Evan Plt Count MPV Neutrophils % (Manual) Lymphocytes % (Manual) Monocytes % (Manual) Neutrophils # (Manual) Total Absolute Neuts Lymphocytes # (Manual) Total Abs Lymphocytes Monocytes # (Manual) Toxic Granulation Toxic Vacuolation Dohle Bodies Polychromasia Sample Site L Radial POC pH 7.43 POC pCO2 26 L POC pO2 66 L POC HCO3 17 L POC Total CO2 18 L POC Base Excess -7.0 ABG pH (Temp Correct) 7.404 ABG pCO2 (Temp Corrct 28 L POC ABG pO2 at Pt Temp 75 POC ABG O2 Sat 94.0 Darwin Test Pass O2 Delivery Device Ventilator POC O2 Rate 12 Minute Ventilation 11.1 Tidal Volume 450 PEEP 5 POC Sodium 144 Sodium 148 H POC Potassium 3.3 Potassium 3.1 L Chloride 118 H Carbon Dioxide 20 L Anion Gap 10.0 BUN 34 H Creatinine 1.24 H Est Cr Clr Drug Dosing 51.4 Est GFR ( Amer) 53.2 Est GFR (Non-Af Amer) 45.9 BUN/Creatinine Ratio 27.7 H Glucose 164 H POC Glucose 192 H Calcium 9.3 Phosphorus 1.7 L D Magnesium 1.8 Troponin I < 0.015 Nasal Screen MRSA (PCR) 09/24/19 09/24/19 11:52 11:54 WBC RBC Hgb POC Hgb Hct POC Hct MCV MCH MCHC RDW Std Deviation RDW Coeff of Evan Plt Count MPV Neutrophils % (Manual) Lymphocytes % (Manual) Monocytes % (Manual) Neutrophils # (Manual) Total Absolute Neuts Lymphocytes # (Manual) Total Abs Lymphocytes Monocytes # (Manual) Toxic Granulation Toxic Vacuolation Dohle Bodies Polychromasia Sample Site POC pH POC pCO2 POC pO2 POC HCO3 POC Total CO2 POC Base Excess ABG pH (Temp Correct) ABG pCO2 (Temp Corrct POC ABG pO2 at Pt Temp POC ABG O2 Sat Darwin Test O2 Delivery Device POC O2 Rate Minute Ventilation Tidal Volume PEEP POC Sodium Sodium 147 H POC Potassium Potassium 3.8 D Chloride 118 H Carbon Dioxide 19 L Anion Gap 10.0 BUN 40 H Creatinine 1.17 Est Cr Clr Drug Dosing 54.4 Est GFR ( Amer) 57.0 Est GFR (Non-Af Amer) 49.2 BUN/Creatinine Ratio 34.3 H Glucose 178 H POC Glucose 178 H Calcium 9.1 Phosphorus Magnesium Troponin I Nasal Screen MRSA (PCR) Microbiology 09/24/19 12:58 Sputum,Vent Suction Gram Stain - Final 09/22/19 09:44 Urine,Clean Catch Urine Culture - Final Klebsiella pneumoniae Escherichia coli 09/22/19 10:33 Blood Aerobic Blood Culture - Preliminary Group B Beta Strep Gram negative bacilli Gram negative bacilli#2 Gram negative bacilli#3 09/22/19 10:33 Blood Anaerobic Blood Culture - Preliminary Group B Beta Strep Gram negative bacilli Gram negative bacilli#2 Gram negative bacilli#3 09/22/19 09:56 Blood Aerobic Blood Culture - Preliminary Group B Beta Strep Gram negative bacilli 09/22/19 09:56 Blood Anaerobic Blood Culture - Preliminary Group B Beta Strep Gram negative bacilli Medications Administered Current Inpatient Medications Acetaminophen (Tylenol) 650 mg NJ Q4H PRN PRN Reason: Fever Stop: 10/24/19 05:06 Last Admin: 09/24/19 05:12 Dose: 650 mg Documented by: Citalopram Hydrobromide (Celexa) 20 mg PO HS TERRY Stop: 10/22/19 20:59 Last Admin: 09/23/19 20:28 Dose: Not Given Documented by: Dextrose (Dextrose 50%) 25 - 50 ml IV UD PRN; Protocol PRN Reason: Hypoglycemia Protocol Stop: 10/22/19 13:25 Fentanyl Citrate (Fentanyl Citrate) 100 mcg IV Q2H PRN PRN Reason: Severe Pain (7,8,9,10) Stop: 10/07/19 14:51 Last Admin: 09/24/19 05:20 Dose: 100 mcg Documented by: Gabapentin (Neurontin) 100 mg PO TID@1200,1700,2100 [facility] Stop: 10/22/19 14:15 Last Admin: 09/24/19 13:59 Dose: Not Given Documented by: Glucagon (Glucagen) 1 mg SQ UD PRN; Protocol PRN Reason: Hypoglycemia Protocol Stop: 10/22/19 13:25 Glucose (Dex4 Glucose) 4 - 8 tabs PO UD PRN; Protocol PRN Reason: Hypoglycemia Protocol Stop: 10/22/19 13:25 Glucose (Glucose 40%) 15 - 30 gm PO UD PRN; Protocol PRN Reason: Hypoglycemia Protocol Stop: 10/22/19 13:25 Heparin Sodium (Porcine) (Heparin Sodium (Porcine)) 5,000 units SQ Q12 TERRY Stop: 10/22/19 20:59 Last Admin: 09/24/19 08:37 Dose: 5,000 units Documented by: Daptomycin 375 mg/ Syringe 7.5 mls @ 3.75 mls/min IV Q24H [facility]; Protocol Stop: 10/02/19 11:59 Last Admin: 09/24/19 12:06 Dose: 3.75 mls/min Documented by: Cefepime HCl 2,000 mg/ Syringe 20 mls @ 5.5 mls/min IV Q12H [facility]; Protocol Stop: 10/03/19 09:59 Last Admin: 09/24/19 10:13 Dose: 5.5 mls/min Documented by: Propofol (Diprivan) 1,000 mg in 100 mls @ 15.336 mls/hr IV .Q6H32M [facility]; Protocol Stop: 09/27/19 00:44 Last Admin: 09/24/19 11:06 Dose: Not Given Documented by: Famotidine 20 mg/ Syringe 5 mls @ 2.5 mls/min IV DAILY [facility] Stop: 10/24/19 09:44 Last Admin: 09/24/19 10:01 Dose: 2.5 mls/min Documented by: Insulin Aspart (Novolog Flexpen) 0 units SC Q4 [facility] Stop: 10/24/19 11:59 Last Admin: 09/24/19 11:56 Dose: 2 units Documented by: Insulin Glargine (Lantus Solostar Pen) 0 units SC BID [facility]; Protocol Stop: 10/22/19 20:59 Last Admin: 09/24/19 08:37 Dose: 12 units Documented by: Magnesium Oxide (Mag-Ox) 400 mg PO BID [facility] Stop: 10/22/19 20:59 Last Admin: 09/24/19 08:36 Dose: Not Given Documented by: Midazolam HCl (Versed) 1 mg IV Q2H PRN PRN Reason: agitation/anxiety Stop: 10/23/19 14:51 Last Admin: 09/23/19 23:16 Dose: 1 mg Documented by: Miscellaneous (Carbohydrates For Hypoglycemia) 15 - 30 gm PO UD PRN PRN Reason: Hypoglycemia Protocol Stop: 10/22/19 13:25 Miscellaneous (Order Awaiting Action) 1 ea N/A QS [facility] Stop: 10/22/19 15:59 Last Admin: 09/24/19 08:36 Dose: Not Given Documented by: Miscellaneous (Order Awaiting Action) 1 ea N/A QS [facility] Stop: 10/22/19 15:59 Last Admin: 09/24/19 08:36 Dose: Not Given Documented by: Miscellaneous Information (Consult Glycemic Management Pharmacy) 1 ea N/A UD PRN; Protocol PRN Reason: Consult Stop: 10/22/19 13:55 Miscellaneous Information (Consult) 1 ea N/A UD PRN PRN Reason: Consult Stop: 10/22/19 14:15 Nutritional Formula (Peptamen Intense Vhp 1.0 Steve) 1,000 ml OG UD [facility]; Protocol Stop: 10/24/19 10:59 Nystatin (Nystatin) 1 appln EXT QID [facility] Stop: 10/22/19 16:59 Last Admin: 09/24/19 11:57 Dose: 1 appln Documented by: Pravastatin Sodium (Pravachol) 20 mg PO QDD [facility] Stop: 10/22/19 16:29 Last Admin: 09/23/19 16:35 Dose: Not Given Documented by: Propofol (Diprivan Bolus From Bag) 20 mg IV Q5M PRN PRN Reason: Sedation Stop: 09/27/19 00:43 Topiramate (Topamax) 50 mg PO [facility] Stop: 10/22/19 20:59 Last Admin: 09/23/19 20:29 Dose: Not Given Documented by: Trazodone HCl (Desyrel) 150 mg PO HS [facility] Stop: 10/22/19 20:59 Last Admin: 09/23/19 20:28 Dose: Not Given Documented by: PG Care Time/CCT Total # of Minutes Spent Total Time Spent with Patient: Total time spent is greater than 50% in audience coordinator rdination of care (as documented) at patient's floor/unit and/or counseling patient: Coding Level of Care Code 42111 Subseq Hosp Care Lvl 3 Diagnoses Acute hypoxemic respiratory failure J96.01 Gram-negative bacteremia R78.81 Sepsis A41.9 Acute kidney injury N17.9 A-fib I48.2 Atrial fibrillation type: chronic Diabetes E11.9; Z79.4 Diabetes mellitus complication status: without complication Diabetes mellitus half-way insulin use: with half-way use Diabetes mellitus type: type 2 H/O pancreatic cancer Z85.07 Depression with anxiety F41.8 Stroke I63.9 DVT prophylaxis Z29.9 (1) Diabetes Diabetes mellitus complication status: without complication Diabetes mellitus oysterman insulin use: with half-way use Diabetes mellitus type: type 2 Qualified Code(s): E11.9 - Type 2 diabetes mellitus without complications; Z79.4 - assisted (current) use of insulin (2) A-fib Atrial fibrillation type: chronic Qualified Code(s): I48.2 - Chronic atrial fibrillation
[2019-09-24] MEDS: PRAVASTATIN SOD 20 MG TAB PO SCH ×2 (16:20→16:26)
[2019-09-24] MEDS: CITALOPRAM 20 MG TAB PO SCH ×2 (20:02→20:07)
[2019-09-24] MEDS: TOPIRAMATE 50 MG TAB PO SCH ×2 (20:02→20:06)
[2019-09-25] MEDS: propofoL 1,000 MG/100 ML VIAL IV SCH ×2 (04:23→07:04)
[2019-09-25] MEDS: INSULIN ASPART 100 UNITS/ML 3 ML PEN SC SCH ×6 (04:28→23:15)
[2019-09-25] MEDS: ACETAMINOPHEN 650 MG SUPP PR PRN ×4 (04:29→23:17)
[2019-09-25 04:54] LABS: Basophils # (auto) 0.01 K/uL (0-0.2); Basophils % (auto) 0.1 %; Eosinophils # (auto) 0.07 K/uL (0-0.5); Eosinophils % (auto) 0.6 %; Hemoglobin 10.1 g/dL (12.0-16.0); Immature Granulocytes # (auto) 0.11 K/uL (0.00-0.02); Immature Granulocytes % (auto) 0.9 %; Lymphocytes # (auto) 1.74 K/uL (1.2-3.4); Mean Corpuscular Hemoglobin 29.9 pg (25-34); Mean Corpuscular Hgb Conc 32.6 g/dL (32-36); Mean Corpuscular Volume 91.7 fL (80-100); Mean Platelet Volume 11.6 fL (7.4-10.4); Monocytes # (auto) 1.79 K/uL (0.11-0.59); Monocytes % (auto) 14.4 %; Platelet Count 142 K/uL (130-400); RDW Coefficient of Variation 17.5 % (11.5-14.5); RDW Standard Deviation 58.9 fL (36.4-46.3); Red Blood Count 3.38 M/uL (4.2-5.4); White Blood Count 12.42 K/uL (4.8-10.8)
[2019-09-25 05:42] LABS: iSTAT Allen Test Pass; iSTAT Art Bld Gas pCO2 Correct 28 mmHg (35-46); iSTAT Art Bld Gas pH Corrected 7.408 (7.35-7.45); iSTAT Arterial Blood Gas HCO3 18 meg/L (19-24); iSTAT Arterial Blood Gas pCO2 26 mmHg (35-46); iSTAT Arterial Blood Gas pH 7.43 (7.35-7.45); iSTAT Arterial Blood Gas pO2 79 mmHg (80-95); iSTAT Arterial Blood Gas pO2 C 89; iSTAT Carbon Dioxide 18 mmol/L (24-31); iSTAT Hematocrit 28 % (37-47); iSTAT Hemoglobin 9.5 g/dl (12.0-16.0); iSTAT Potassium 2.9 mmol/L (3.3-5.0); iSTAT Site R Radial; iSTAT Sodium 147 mmol/L (135-144)
[2019-09-25 05:43] LABS: BUN Creatinine Ratio 46.2 (10-20); Calcium 9.3 mg/dl (8.5-10.1); Creatinine Clr Calc Pharmacy 71.5 ml/min; Est GFR (African American) 79.4; Est GFR (Non-African American) 68.5; Phosphorus 2.4 mg/dl (2.5-4.9); Potassium 3.1 mmol/L (3.5-5.1)
[2019-09-25] MEDS ORDERED: POTASSIUM PHOS 3 MMOL/1 ML INFUSION IV STA (06:01)
[2019-09-25] MEDS: POTASSIUM ACETATE 10 MEQ in 0.9 % SODIUM CHLORIDE 100 ML IV SCH ×2 (06:36→07:33)
--- NOTE | 2019-09-25 06:36 | Electrocardiogram Report ---
Test Reason : Blood Pressure : / mmHG Vent. Rate : 070 BPM Atrial Rate : 086 BPM P-R Int : 000 ms QRS Dur : 168 ms QT Int : 502 ms P-R-T Axes : 000 -11 140 degrees QTc Int : 542 ms Ventricular-paced rhythm Abnormal ECG When compared with ECG of 22-SEP-2019 09:33, Vent. rate has decreased BY 15 BPM Confirmed by Jose Greene ([id number]) on 09/25/2019 6:36:07 AM Referred By: REFERRED SELF Confirmed By:Jose Greene
[2019-09-25] MEDS ORDERED: POTASSIUM PHOSPHATE 30 MMOL in SODIUM CHLORIDE 0.9% 500 ML IV ONE (06:45)
[2019-09-25] MEDS: GABAPENTIN 100 MG CAP PO SCH ×3 (07:05→20:48)
[2019-09-25] MEDS: MAGNESIUM OXIDE 400 MG TAB PO SCH ×2 (07:05→20:47)
--- NOTE | 2019-09-25 07:33 | XRay Report ---
XR chest 1V portable CLINICAL HISTORY: intubation COMPARISON STUDY: Chest radiograph September 24, 2019. FINDINGS: The tip of the endotracheal tube is 1.7 cm above the taisha. Left pacer is in place. Cardia c mediastinal silhouette is stable. There is no pneumothorax. Left basilar opacity with volume loss h as increased. Mild interstitial thickening and patchy bilateral opacities have slightly improved. IMPRESSION: 1. Tip of endotracheal tube 1.7 cm above the taisha. 2. Increase in left basilar opacity with volume loss. This may reflect left lower lobe atelectasis or consolidation. 3. Interstitial thickening and bilateral airspace opacities which have mildly improved. This may refl ect pulmonary edema or an infectious process. ACT 112: Negative or not required by law. Electronically signed by: Baron Garcia M.D. 09/25/2019 7:32 AM
[2019-09-25] MEDS: fentaNYL citrate 100 MCG/2 ML VIAL IV PRN ×3 (07:34→16:43)
[2019-09-25] MEDS: INSULIN GLARGINE SOLOSTAR 100 UNITS/ML 3 ML PEN SC SCH ×2 (07:37→20:48)
[2019-09-25] MEDS: HEPARIN SOD 5,000 UNIT/0.5 ML VIAL SQ SCH ×2 (07:37→20:48)
[2019-09-25] MEDS: NYSTATIN CR 15 GM TUBE EXT SCH ×4 (07:38→20:47)
[2019-09-25] MEDS: FAMOTIDINE 20 MG in SYRINGE 3 ML IV SCH ×2 (07:41→20:48)
--- NOTE | 2019-09-25 09:38 | Critical Care Progress Note ---
Date of Service September 25, 2019 Assessment & Plan (1) Gram-negative bacteremia: Reason Critically Ill: 63-year-old female with sepsis secondary to obstructive uropathy with new onset hypoxic respiratory failure. PLAN: Neuro: Acute encephalopathy -Likely metabolic in origin Sedation and analgesia: -Holding sedatives secondary to unresponsiveness -Noncon head CT given lack of arousal History stroke -Status post aneurysm clipping 1998 Resp: Acute hypoxic respiratory failure -Invasive mechanical ventilation day 3 -We will obtain sputum cultures -Suspect volume overload/cardiac dyssynchrony CV: History atrial fibrillation -Long-term anticoagulation -We will consider rate control: This was not prescribed previously Congestive heart failure -Elevated BNP, troponins within normal limits -Reviewed echo, normal EF IVC with reduced inspiratory collapse: Would be indicative of volume overload Status post pacemaker -Serial troponins, brain natruretic peptide, diuresis. Fluids/Renal: Acute kidney injury: Status post obstruction bilateral: Improving -Reviewed urology notes -Continue Schaffer for maximum drainage Hypokalemia: Continued replacement Hypophosphatemia: Hypernatremia: Initiating tube feeds today ID: Sepsis Multiple organisms: Gram-negative bacilli: X3, group B beta hemolytic Streptoco ccus Continued febrile illness -Continue current broad-spectrum antibiotics -E. coli and Klebsiella both are pansensitive -Group beta strep is sensitive to -Repeat blood culture: No growth to date -De-escalate from cefepime and Vanco to ceftriaxone, patient intubated known report of rash with ceftriaxone administration: Consider benefits outweigh risks -7-day course GI/Nutrition: Start tube feeds Transaminitis -Most consistent with congestive hepatopathy -Hepatitis C previously negative Heme: Anemia DVT prophylaxis: Heparin twice daily Endocrine: ICU hyperglycemia protocol Vascular access: Peripheral IVs Code Status: Full code Disposition: ICU (2) Acute hypoxemic respiratory failure: (3) Hydroureteronephrosis: (4) Acute UTI: (5) CAROLA (acute kidney injury): (6) Sepsis: Admission and Anticipated Discharge Date Admission Date: September 22, 2019 Subjective No overnight events, no significant improvement in mental status with holding sedatives. Review of Systems Review of Systems: Unobtainable due to endotracheal tube Physical Exam Physical Exam: General: Sedated Skin: Warm, dry, Head: Atraumatic Ears, nose, mouth and throat: Obscured by endotracheal tube Cardiovascular: Normal peripheral perfusion Respiratory: Coarse sounds bilaterally Gastrointestinal: Non distended Musculoskeletal: No deformity Results & Data Results & Data ([facility]) Vital Signs (Past 12 Hours) Vital Signs Temp Pulse Resp BP Pulse Ox 09/25/19 09:00 37.9 C H 70 97 09/25/19 08:52 38.0 C H 70 137/61 96 09/25/19 08:00 38.3 C H 70 96 09/25/19 07:52 38.3 C H 70 137/55 L 100 09/25/19 07:29 70 27 H 96 09/25/19 07:00 38.7 C H 70 95 09/25/19 06:53 38.7 C H 70 166/68 H 95 09/25/19 06:50 71 96 09/25/19 06:49 38.8 C H 71 145/77 H 96 09/25/19 05:52 37.9 C H 70 142/85 H 95 09/25/19 05:18 71 27 H 96 09/25/19 04:52 70 125/58 L 96 09/25/19 03:52 38.7 C H 70 118/56 L 97 09/25/19 02:52 70 123/58 L 97 09/25/19 02:20 70 25 H 97 09/25/19 01:52 70 114/59 L 97 09/25/19 00:52 70 113/54 L 96 09/24/19 23:52 37.5 C 70 112/55 L 96 09/24/19 23:24 104 H 26 H 99 09/24/19 22:52 70 110/54 L 96 09/24/19 21:52 70 105/53 L 96 Coding Level of Care Code Critical Care 1st 30-74 mins Diagnoses Gram-negative bacteremia R78.81 Acute hypoxemic respiratory failure J96.01 Hydroureteronephrosis N13.30 Acute UTI N39.0 CAROLA (acute kidney injury) N17.9 Sepsis A41.9 Sepsis acute organ dysfunction status: unspecified Sepsis type: sepsis due to unspecified organism Time Spent (min) 55 Comment I have personally spent 55 minutes of critical care time in the direct management of this patient. This is a life/limb threatening event. This includes time spent evaluating patient, direct bedside care, chart review, placing orders, interpretation of diagnostic studies, discussion with consultants, patient, and/or family members regarding treatment decisions, as well as other required patient management activities. This time is exclusive of all separately billable procedures, and teaching time and separate from and in addition to any other critical care service time. (1) Sepsis Sepsis acute organ dysfunction status: unspecified Sepsis type: sepsis due to unspecified organism Qualified Code(s): A41.9 - Sepsis, unspecified organism
[2019-09-25] MEDS: DAPTOmycin 375 MG in SYRINGE 0 ML IV SCH (10:13)
[2019-09-25] MEDS: CEFEPIME 2,000 MG in SYRINGE 7.5 ML IV SCH (10:13)
[2019-09-25] MEDS: cefTRIAXone SODIUM 2,000 MG in DEXTROSE 5% 50 ML IV SCH (10:30)
--- NOTE | 2019-09-25 11:42 | XRay Report ---
XR KUB/Abdomen 1 view CLINICAL HISTORY: New OG tube placed COMPARISON STUDY: No previous studies for comparison. FINDINGS: Nasogastric tube placed within the gastric fundus. Nonobstructive bowel pattern. Bilateral ureteral stents. IMPRESSION: Nasogastric tube placed within the gastric fundus. ACT 112: Negative or not required by law. The above report was generated using voice recognition software. It may contain grammatical, syntax or spelling errors. Electronically signed by: Haim Bal M.D. 09/25/2019 11:41 AM
[2019-09-25] MEDS: PEPTAMEN INTENSE VHP 1.0 CAL 1,000 ML BAG OG SCH (12:13)
--- NOTE | 2019-09-25 13:35 | Palliative Care Consultation ---
Date of Consultation September 25, 2019 Assessment & Plan (1) Goals of care, counseling/discussion: This is a 63 year old female who presented to the [facility] from home after she started to have altered mental status. Per her son, he states that she has been declining over the past few weeks. Additionally, she was having abdominal pain and loose bowel movements. A cystoscopy was performed on September 21 and ureteral stones were discovered s/p bilateral ureteral stent placement. Subsequently, she became septic and started to have signs of acute respiratory failure and was intubated on September 22. There is also questionable volume overload as contributing factors to her decline. She remains intubated and failed her spontaneous breathing trial yesterday, September 23. Additional PMH includes: A-fib, pancreatic CA s/p Whipple procedure, Pacemaker, HTN, CAD, CVA and others. Palliative Care was consulted to discuss overall code status and goals of care. -I met with the patient in room 103. The patient is intubated; however, no sedation infusing at this time. -Current ventilator settings are: CPAP/PSV FiO2 0.4, RR 22. Again, she had a failed SBP trial yesterday. -When I called the patients name she did not open her eyes or follow commands. -I reached out to the patients , Ayo and left a voicemail -I reached out to the patients son, Jaspal and spoke with his Nydia [phone]. Both Jaspal and Ayo were at work and I expressed there was not an emergency but we wanted to gain an understanding about their overall goals moving forward, specifically her code status once extubated. -Ultimately, it appears we may be able to get her past this intubation, but she is otherwise, generally declining. pt to remain a full code. -Per review of the chart, she is relatively independent at home and walks with a cane. She does drivea car. -Nydia was confident that they could come to the hospital to discuss her current progress and overall goals tomorrow, September 25 at 1500. They will call if that timeframe does not work. The palliative care MD and the meat and seafood clerk are aware of the above conversation. (2) H/O pancreatic cancer: (3) Pacemaker: (4) Acute hypoxemic respiratory failure: (5) Kidney stone: History of Present Illness Reason for Consultation: Goals of Care Requesting Physician: Dr. Muro Attending Physician: Wojciech Mccallum DO History of Present Illness This is a 63 year old female who presented to the [facility] from home after she started to have altered mental status. Per her son, he states that she has been declining over the past few weeks. Additionally, she was having abdominal pain and loose bowel movements. A cystoscopy was performed on September 21 and ureteral stones were discovered s/p bilateral ureteral stent placement. Subsequently, she became septic and started to have signs of acute respiratory failure and was intubated on September 22. There is also questionable volume overload as contributing factors to her decline. She remains intubated and failed her spontaneous breathing trial yesterday, September 23. Additional PMH includes: A-fib, pancreatic CA s/p Whipple procedure, Pacemaker, HTN, CAD, CVA and others. Palliative Care was consulted to discuss overall code status and goals of care. Please see A/P for further details. Thank you kindly for involving the palliative care team with this patient. Allergies Allergy/AdvReac Type Severity Reaction Status Date / Time Iodinated Contrast Media Allergy Severe HIVES, Verified 09/22/19 11:[address] DYE iodine Allergy Severe airway Verified 09/22/19 11:39 swells shut amoxicillin Allergy Intermediate RASH Verified 09/22/19 11:39 ceftriaxone Allergy Intermediate RASH Verified 09/22/19 11:39 adhesive Allergy Mild RASH AND Verified 09/22/19 11:39 SORE SKIN FROM TAPE ADHESIVES azithromycin [From Zithromax] Allergy Mild Hives Verified 09/22/19 11:39 alcohol Allergy Unknown Unknown Verified 09/22/19 11:49 atorvastatin Allergy Unknown RASH Verified 09/22/19 11:39 Bactrim Allergy Unknown UNKNOWN Verified 07/24/17 06:56 isopropyl alcohol Allergy Unknown RASH Verified 09/22/19 11:39 lemon Allergy Unknown RASH Verified 09/22/19 11:39 lorazepam Allergy Unknown RASH Verified 09/22/19 11:39 morphine Allergy Unknown stops heart Verified 09/22/19 11:39 rosuvastatin Allergy Unknown RASH Verified 09/22/19 11:39 shellfish derived Allergy Unknown AIRWAY Verified 09/22/19 11:39 SHUTS sulfamethoxazole Allergy Unknown UNKNOWN Verified 09/22/19 11:39 trimethoprim Allergy Unknown UNKNOWN Verified 09/22/19 11:39 latex Allergy Rash Verified 09/22/19 11:39 metformin Allergy Unknown Verified 09/22/19 11:39 Cipro AdvReac Unknown INTERFERES Verified 07/24/17 06:56 WITH COUMADIN ciprofloxacin AdvReac Unknown INTERFERES Verified 09/22/19 11:39 WITH COUMADIN ezetimibe AdvReac Unknown RAPID Verified 09/22/19 11:39 HEART BEAT gemfibrozil AdvReac Unknown MYALGIAS Verified 09/22/19 11:39 lovastatin AdvReac Unknown MYALGIAS Verified 09/22/19 11:39 tramadol AdvReac Unknown CHEST Verified 09/22/19 11:39 TIGHTNESS Home Medications Home Medications Medication Instructions Recorded Confirmed Type Eliquis 5 mg PO BID 12/10/17 09/22/19 History citalopram [Celexa] 20 mg PO HS 12/10/17 09/22/19 History fenofibrate nanocrystallized 145 mg PO QAM 12/10/17 09/22/19 History [Tricor] gabapentin 100 mg PO TID 12/10/17 09/22/19 History magnesium oxide [MagOx] 400 mg PO BID 12/10/17 09/22/19 History sucralfate [Carafate] 1 g PO QID 12/10/17 09/22/19 History aspirin [Ecotrin Low Strength] 81 mg PO QAM #30 tab 12/11/17 09/22/19 Rx trazodone 150 mg PO HS 01/06/18 09/22/19 History pravastatin [Pravachol] 20 mg PO QPM 01/21/18 09/22/19 History topiramate [Topamax] 50 mg PO HS 01/21/18 09/22/19 History Creon 24,000 unit PO TIDM 03/12/18 09/22/19 History ascorbic acid (vitamin C) 500 mg PO BID 03/12/18 09/22/19 History cinacalcet [Sensipar] 30 mg PO QPM 03/12/18 09/22/19 History cyanocobalamin (vitamin B-12) 1,000 mcg PO QAM 03/12/18 09/22/19 History [Vitamin B-12] omega-3 fatty acids-fish oil [Fish 1 cap PO QPM 03/12/18 09/22/19 History Oil] cholecalciferol (vitamin D3) 5,000 unit PO BID 05/28/18 09/22/19 History [Vitamin D3] docusate sodium [Col-Rite] 100 mg PO BID 07/03/18 09/22/19 History ondansetron 4 mg PO Q8H PRN 07/03/18 09/22/19 History prochlorperazine maleate 5 mg PO TID 07/03/18 09/22/19 History acetaminophen 500 mg capsule 1,000 mg PO Q4H PRN cap 05/02/19 09/22/19 History lubiprostone 24 mcg capsule 24 mcg PO DAILY 05/16/19 09/22/19 History glucagon (human recombinant) 1 mg SUBCUT DIRECTED 09/22/19 09/22/19 History [Glucagon Emergency Kit (human)] glucose 16 g PO DIRECTED PRN 09/22/19 09/22/19 History insulin NPH and regular human 18 unit SUBCUT BIDM 09/22/19 09/22/19 History [Novolin 70/30 U-100 Insulin] multivitamin 1 tab PO QAM 09/22/19 09/22/19 History nystatin 1 applic TOPICAL QID 09/22/19 09/22/19 History potassium chloride 10 meq PO QAM 09/22/19 09/22/19 History Patient History Medical History A-fib (Chronic) Abdominal pain (Chronic) Acute left-sided weakness (Resolved) Aneurysm (Chronic) cerebral aneurysm clipping in 1998 in [place] Chronic abdominal pain (Chronic) Depression with anxiety (Chronic) Diabetes (Chronic) Diabetic polyneuropathy (Chronic) H/O pancreatic cancer (Resolved) s/p Whipple procedure Heart disease (Chronic) HTN (hypertension) (Chronic) Kidney disease (Chronic) Migraine headache without aura (Chronic) Pacemaker (Chronic) Pancreatitis, recurrent (Chronic) Stroke (Chronic) Surgical History H/O cystoscopy 07/24/17 - MAC #3, ETT #7.0, Grade 1 View History of abdominal surgery (Resolved) History of Whipple Procedure History of cerebral aneurysm repair (Resolved) right-sided cerebral aneurysm repair in 1998 History of hysterectomy Hx of appendectomy (Resolved) Hx of cholecystectomy (Resolved) Family History Mother , in her 60's from CHF CHF (congestive heart failure) Stroke Father , in his 60's of leukemia Leukemia Other No significant family history Social History Preferred Language: [place] Communication Ability: Impaired Visual Impairment: No Limitations Hearing Ability: Normal Smash Piecer Required: No Beliefs That Will Affect Care: None Current Living Situation: Spouse Current Living Situation Comment: unk current occupational status: retired and disabled current occupation: cleaned ooms at a resort stopping by age 39 Other Information That Helps Us Care for You: Yes Feels Safe at Home: No Is there a partner from a previous relationship who is making you feel unsafe now?: No Smoking Status: Unknown if ever smoked Hx Substance Use: No (unk) Review of Systems Review of Systems: Unobtainable due to endotracheal tube Physical Exam Constitutional: well developed and + ill appearing Respiratory: normal respiratory effort, lungs clear to auscultation Auscultation: + diminished lung sounds ventilated Cardiovascular: Heart Sounds: normal S1 and normal S2 pacemaker Gastrointestinal (Abdomen): normal bowel sounds, soft, nontender, no hepatosplenomegaly Skin: no rashes, warm and dry Genitourinary: indwelling peters catheter - dark yellow urine Results & Data Vital Signs (Past 12 Hours) Vital Signs Temp Pulse Resp BP Pulse Ox 09/25/19 12:00 37.7 C H 70 95 09/25/19 11:52 37.7 C H 70 127/56 L 94 09/25/19 11:05 70 14 96 09/25/19 10:52 38.2 C H 70 131/57 L 96 09/25/19 10:00 38.1 C H 70 97 09/25/19 09:52 38.1 C H 70 150/79 H 96 09/25/19 09:00 37.9 C H 70 97 09/25/19 08:52 38.0 C H 70 137/61 96 09/25/19 08:00 38.3 C H 70 96 09/25/19 07:52 38.3 C H 70 137/55 L 100 09/25/19 07:29 70 27 H 96 09/25/19 07:00 38.7 C H 70 95 09/25/19 06:53 38.7 C H 70 166/68 H 95 09/25/19 06:50 71 96 09/25/19 06:49 38.8 C H 71 145/77 H 96 09/25/19 05:52 37.9 C H 70 142/85 H 95 09/25/19 05:18 71 27 H 96 09/25/19 04:52 70 125/58 L 96 09/25/19 03:52 38.7 C H 70 118/56 L 97 09/25/19 02:52 70 123/58 L 97 09/25/19 02:20 70 25 H 97 09/25/19 01:52 70 114/59 L 97 PG Care Time/CCT Total # of Minutes Spent Total Time Spent with Patient: Total time spent is greater than 50% in coordination of care (as documented) at patient's floor/unit and/or counseling patient: 70 Coding Level of Care Code 36606 Inpt Consult Level 3 Diagnoses Goals of care, counseling/discussion Z71.89 H/O pancreatic cancer Z85.07 Pacemaker Z95.0 Acute hypoxemic respiratory failure J96.01 Kidney stone N20.0 Time Spent (min) 70 Time Spent Midlevel Total time spent 70 mintues with > 50% of that time spent assessing the patient, discussing goals of care with patient family over the phone and with IDT .
[2019-09-25] MEDS: PRAVASTATIN SOD 20 MG TAB PO SCH (16:44)
--- NOTE | 2019-09-25 18:12 | CT Scan Report ---
CT head/brain wo con CLINICAL HISTORY: 63 years-old Female with encephalopathy. Acutely altered mental status TECHNIQUE: Multiple axial CT images of the head were obtained without contrast. A dose lowering tech nique was utilized adhering to the principles of ALARA. CT DOSE: 638.56 mGycm COMPARISON: Head CT 09/22/2019. FINDINGS: Endotracheal tube noted on the port purser localizer images. No acute intracranial hemorrhage, midline shif t, intracranial mass, hydrocephalus, territorial ischemia or abnormal extra-axial collection. Study i s motion degraded. Patchy white matter hypodensities suggest chronic microvascular ischemic disease. There is suggestion of a remote infarct of the right frontal lobe. Postoperative changes of the right frontal and temporal calvarium with orthopedic hardware noted within the right sphenoid wing. The calvarium is intact. 9 mm left frontal sinus osteoma. Mastoid air cells are generally clear. Sof t tissues and orbits are unremarkable. IMPRESSION: No acute intracranial abnormality identified. ACT 112: Negative or not required by law. The above report was generated using voice recognition software. It may contain grammatical, syntax o r spelling errors. Electronically signed by: Michel Garcia M.D. 09/25/2019 6:11 PM
[2019-09-25] MEDS: TOPIRAMATE 50 MG TAB PO SCH (20:48)
[2019-09-25] MEDS: CITALOPRAM 20 MG TAB PO SCH (20:48)
--- NOTE | 2019-09-25 21:04 | Hospitalist Progress Note ---
Date of Service September 25, 2019 Assessment & Plan (1) Acute hypoxemic respiratory failure: repeat CXR on 09/22 with pulmonary edema but also worsening infiltrates she had a non-productive cough prior to intubation differential would be pneumonia, pulmonary edema (cardiogenic vs non- cardiogenic) ABG with respiratory alkalosis, metabolic acidosis intubated afternoon of 09/22, management per ICU staff still on ventilator, tolerating CPAP today requiring intermittent Fentanyl sedation not much response off Propofol CT head normal daily SBT, but right now she is not very responsive, may make extubation difficult (2) Gram-negative bacteremia: due to UTI, urine culture with E coli and Klebsiella, mandujano sensitive blood cultures with E coli, Klebsiella, group B strep de-escalate antibiotics to Rocephin + fever in the past 24 hours, WBC going down to 12k (3) Sepsis: sepsis due to complicated UTI with ureteral stones urine culture with E coli and Klebsiella blood cultures with E coli, Klebsiella, group B strep change to Rocephin procalcitonin 50 on admission, repeat down to 19 the next day no evidence of shock, BP is preserved however, this would constitute severe sepsis as she has organ failure with CAROLA and hypoxic respiratory failure lactic acid normal 09/22, checked twice repeat blood cultures with no growth (4) Acute kidney injury: Patient is acute kidney injury with creatinine of 2.29, creatinine on July 2018 was 0.66. due to dehydration and sepsis aggressive IV hydration provided making adequate urine, Cr improved to 0.89 today, stable K low , hypernatremia, low phosphorus tube feeds initiated today (5) A-fib: holding anticoagulation as she cannot swallow, she had some hematuria initiate rate control today echo with preserved EF (6) Diabetes: Patient typically takes 70/30 insulin 18 units twice daily this will be changed to basal bolus monitor for hypoglycemia, ICU protocol (7) H/O pancreatic cancer: Patient typically takes Creon there is pancreatic inflammation seen on intake CT scan, admission lipase is low (8) Depression with anxiety: Patient is on Celexa, Topamax and trazodone now with altered mental status Propofol off, using PRN Fentanyl CT head without acute changes (9) Stroke: Patient has history of cerebral aneurysm clipping in 1998 associated stroke. Patient takes antiplatelets of aspirin and pravastatin (10) DVT prophylaxis: scd /heparinfor dvt prevention Admission and Anticipated Discharge Date Admission Date: September 22, 2019 Subjective patient remains intubated tolerating periods of CPAP but requiring sedation with Fentanyl discussed with ICU staff reviewed labs, WBC down to 12k, Hb 10, Cr 0.89, K 3.3 CT head without changes KUB shows OG tube in good location CXR with worsening left lower lobe opacity, represents consolidation vs atelectasis palliative care consulted to see tomorrow Review of Systems Review of Systems: Unobtainable due to endotracheal tube Physical Exam Constitutional: + mechanically ventilated Eyes: PERRL, conjunctivae normal, anicteric sclerae ENMT: external ear and nose normal, oropharynx normal Neck: trachea midline, no thyromegaly Respiratory: normal respiratory effort and symmetric chest movement Auscultation: + rales (bases); no wheezes Cardiovascular: Rate/Rhythm: regular rate and regular rhythm Heart Sounds: normal S1 and normal S2; no murmur Vessels: no JVD Extremities: normal capillary refill; no edema Gastrointestinal (Abdomen): normal bowel sounds, soft, nontender, no hepatosplenomegaly Musculoskeletal: Head/Neck/Chest: normocephalic, head atraumatic and neck supple Extremities: no cyanosis and no clubbing Skin: no rashes, warm and dry Neurologic: no focal motor deficits Psychiatric: Orientation: + not alert, + not oriented to person, + not oriented to place and + not oriented to time Lymphatic: no cervical or axillary lymphadenopathy Results & Data Results & Data ([facility]) Vital Signs (Past 12 Hours) Vital Signs Temp Pulse Resp BP Pulse Ox 09/25/19 19:10 70 18 93 09/25/19 17:21 71 21 94 09/25/19 17:00 38.2 C H 70 95 09/25/19 16:53 38.3 C H 70 140/63 95 09/25/19 16:00 70 09/25/19 15:52 38.1 C H 70 164/86 H 97 09/25/19 15:45 38.1 C H 70 167/70 H 96 09/25/19 14:52 38.0 C H 70 167/70 H 97 09/25/19 14:00 37.9 C H 70 97 09/25/19 13:54 70 25 H 97 09/25/19 13:52 37.8 C H 70 160/91 H 97 09/25/19 12:53 37.8 C H 70 152/73 H 96 09/25/19 12:00 37.7 C H 70 95 09/25/19 11:52 37.7 C H 70 127/56 L 94 09/25/19 11:05 70 14 96 09/25/19 10:52 38.2 C H 70 131/57 L 96 09/25/19 10:00 38.1 C H 70 97 09/25/19 09:52 38.1 C H 70 150/79 H 96 09/25/19 09:00 37.9 C H 70 97 Laboratory Results Laboratory Results - last 24 hr 09/24/19 09/25/19 09/25/19 23:34 04:09 04:09 WBC 12.42 H RBC 3.38 L Hgb 10.1 L POC Hgb Hct 31.0 L POC Hct MCV 91.7 MCH 29.9 MCHC 32.6 RDW Std Deviation 58.9 H RDW Coeff of Evan 17.5 H Plt Count 142 MPV 11.6 H Immature Gran % (Auto) 0.9 Neut % (Auto) 70.0 Lymph % (Auto) 14.0 Fannin % (Auto) 14.4 Eos % (Auto) 0.6 Baso % (Auto) 0.1 Neut # (Auto) 8.70 H Lymph # (Auto) 1.74 Fannin # (Auto) 1.79 H Eos # (Auto) 0.07 Baso # (Auto) 0.01 Immature Gran # (Auto) 0.11 H Sample Site POC pH POC pCO2 POC pO2 POC HCO3 POC Total CO2 POC Base Excess ABG pH (Temp Correct) ABG pCO2 (Temp Corrct POC ABG pO2 at Pt Temp POC ABG O2 Sat Darwin Test O2 Delivery Device POC O2 Rate Minute Ventilation Tidal Volume PEEP POC Sodium Sodium 149 H POC Potassium Potassium 3.1 L D Chloride 119 H Carbon Dioxide 19 L Anion Gap 11.0 BUN 41 H Creatinine 0.89 Est Cr Clr Drug Dosing 71.5 Est GFR ( Amer) 79.4 Est GFR (Non-Af Amer) 68.5 BUN/Creatinine Ratio 46.2 H Glucose 143 H POC Glucose 165 H Calcium 9.3 Phosphorus 2.4 L Magnesium 2.0 09/25/19 09/25/19 09/25/19 04:27 05:20 07:36 WBC RBC Hgb POC Hgb 9.5 L Hct POC Hct 28 L MCV MCH MCHC RDW Std Deviation RDW Coeff of Evan Plt Count MPV Immature Gran % (Auto) Neut % (Auto) Lymph % (Auto) Fannin % (Auto) Eos % (Auto) Baso % (Auto) Neut # (Auto) Lymph # (Auto) Fannin # (Auto) Eos # (Auto) Baso # (Auto) Immature Gran # (Auto) Sample Site R Radial POC pH 7.43 POC pCO2 26 L POC pO2 79 L POC HCO3 18 L POC Total CO2 18 L POC Base Excess -7.0 ABG pH (Temp Correct) 7.408 ABG pCO2 (Temp Corrct 28 L POC ABG pO2 at Pt Temp 89 POC ABG O2 Sat 96.0 H Darwin Test Pass O2 Delivery Device Ventilator POC O2 Rate 12 Minute Ventilation 5.4 Tidal Volume 450 PEEP 5 POC Sodium 147 H Sodium POC Potassium 2.9 L Potassium Chloride Carbon Dioxide Anion Gap BUN Creatinine Est Cr Clr Drug Dosing Est GFR ( Amer) Est GFR (Non-Af Amer) BUN/Creatinine Ratio Glucose POC Glucose 158 H 147 H Calcium Phosphorus Magnesium 09/25/19 09/25/19 09/25/19 10:58 16:49 19:21 WBC RBC Hgb POC Hgb Hct POC Hct MCV MCH MCHC RDW Std Deviation RDW Coeff of Evan Plt Count MPV Immature Gran % (Auto) Neut % (Auto) Lymph % (Auto) Fannin % (Auto) Eos % (Auto) Baso % (Auto) Neut # (Auto) Lymph # (Auto) Fannin # (Auto) Eos # (Auto) Baso # (Auto) Immature Gran # (Auto) Sample Site POC pH POC pCO2 POC pO2 POC HCO3 POC Total CO2 POC Base Excess ABG pH (Temp Correct) ABG pCO2 (Temp Corrct POC ABG pO2 at Pt Temp POC ABG O2 Sat Darwin Test O2 Delivery Device POC O2 Rate Minute Ventilation Tidal Volume PEEP POC Sodium Sodium POC Potassium Potassium Chloride Carbon Dioxide Anion Gap BUN Creatinine Est Cr Clr Drug Dosing Est GFR ( Amer) Est GFR (Non-Af Amer) BUN/Creatinine Ratio Glucose POC Glucose 174 H 180 H 172 H Calcium Phosphorus Magnesium Microbiology 09/22/19 10:33 Blood Aerobic Blood Culture - Final Group B Beta Strep Klebsiella pneumoniae Escherichia coli Escherichia coli#2 09/22/19 10:33 Blood Anaerobic Blood Culture - Final Group B Beta Strep Klebsiella pneumoniae Escherichia coli 09/24/19 12:58 Sputum,Vent Suction Gram Stain - Final 09/24/19 12:58 Sputum,Vent Suction Sputum Culture - Preliminary Pin-point growth present, reincubating. 09/22/19 09:56 Blood Aerobic Blood Culture - Final Group B Beta Strep Klebsiella pneumoniae 09/22/19 09:56 Blood Anaerobic Blood Culture - Final Group B Beta Strep Klebsiella pneumoniae 09/24/19 03:23 Blood Aerobic Blood Culture - Preliminary No growth in Aerobic bottle after 24 hours. 09/24/19 03:23 Blood Anaerobic Blood Culture - Preliminary No growth in Anaerobic bottle after 24 hours. 09/24/19 03:12 Blood Aerobic Blood Culture - Preliminary No growth in Aerobic bottle after 24 hours. 09/24/19 03:12 Blood Anaerobic Blood Culture - Preliminary No growth in Anaerobic bottle after 24 hours. 09/22/19 09:44 Urine,Clean Catch Urine Culture - Final Klebsiella pneumoniae Escherichia coli Medications Administered Current Inpatient Medications Acetaminophen (Tylenol) 650 mg DC Q4H PRN PRN Reason: Fever Stop: 10/24/19 05:06 Last Admin: 09/25/19 17:04 Dose: 650 mg Documented by: Citalopram Hydrobromide (Celexa) 20 mg PO HS TERRY Stop: 10/22/19 20:59 Last Admin: 09/25/19 20:48 Dose: 20 mg Documented by: Dextrose (Dextrose 50%) 25 - 50 ml IV UD PRN; Protocol PRN Reason: Hypoglycemia Protocol Stop: 10/22/19 13:25 Fentanyl Citrate (Fentanyl Citrate) 100 mcg IV Q2H PRN PRN Reason: Severe Pain (7,8,9,10) Stop: 10/07/19 14:51 Last Admin: 09/25/19 16:43 Dose: 100 mcg Documented by: Gabapentin (Neurontin) 100 mg PO TID@1200,1700,2100 TERRY Stop: 10/22/19 14:15 Last Admin: 09/25/19 20:48 Dose: 100 mg Documented by: Glucagon (Glucagen) 1 mg SQ UD PRN; Protocol PRN Reason: Hypoglycemia Protocol Stop: 10/22/19 13:25 Glucose (Dex4 Glucose) 4 - 8 tabs PO UD PRN; Protocol PRN Reason: Hypoglycemia Protocol Stop: 10/22/19 13:25 Glucose (Glucose 40%) 15 - 30 gm PO UD PRN; Protocol PRN Reason: Hypoglycemia Protocol Stop: 10/22/19 13:25 Heparin Sodium (Porcine) (Heparin Sodium (Porcine)) 5,000 units SQ Q12 TERRY Stop: 10/22/19 20:59 Last Admin: 09/25/19 20:48 Dose: 5,000 units Documented by: Propofol (Diprivan) 1,000 mg in 100 mls @ 0 mls/hr IV .Q0M [facility]; Protocol Stop: 09/27/19 00:44 Last Titration: 09/25/19 19:15 Dose: Infused Documented by: Ceftriaxone Sodium 2,000 mg/ (Dextrose) 70 mls @ 140 mls/hr IV Q24H [facility] Stop: 10/09/19 09:59 Last Infusion: 09/25/19 11:14 Dose: Infused Documented by: Famotidine 20 mg/ Syringe 5 mls @ 2.5 mls/min IV BID [facility] Stop: 10/24/19 09:44 Last Admin: 09/25/19 20:48 Dose: 2.5 mls/min Documented by: Insulin Aspart (Novolog Flexpen) 0 units SC Q4 [facility] Stop: 10/24/19 11:59 Last Admin: 09/25/19 20:48 Dose: 2 units Documented by: Insulin Glargine (Lantus Solostar Pen) 0 units SC BID [facility]; Protocol Stop: 10/22/19 20:59 Last Admin: 09/25/19 20:48 Dose: 8 units Documented by: Magnesium Oxide (Mag-Ox) 400 mg PO BID [facility] Stop: 10/22/19 20:59 Last Admin: 09/25/19 20:47 Dose: 400 mg Documented by: Midazolam HCl (Versed) 1 mg IV Q2H PRN PRN Reason: agitation/anxiety Stop: 10/23/19 14:51 Last Admin: 09/23/19 23:16 Dose: 1 mg Documented by: Miscellaneous (Carbohydrates For Hypoglycemia) 15 - 30 gm PO UD PRN PRN Reason: Hypoglycemia Protocol Stop: 10/22/19 13:25 Miscellaneous (Order Awaiting Action) 1 ea N/A QS [facility] Stop: 10/22/19 15:59 Last Admin: 09/24/19 08:36 Dose: Not Given Documented by: Miscellaneous (Order Awaiting Action) 1 ea N/A QS TERRY Stop: 10/22/19 15:59 Last Admin: 09/24/19 08:36 Dose: Not Given Documented by: Miscellaneous Information (Consult Glycemic Management Pharmacy) 1 ea N/A UD PRN; Protocol PRN Reason: Consult Stop: 10/22/19 13:55 Nutritional Formula (Peptamen Intense Vhp 1.0 Steve) 1,000 ml OG UD TERRY; Protocol Stop: 10/24/19 10:59 Last Admin: 09/25/19 12:13 Dose: 1,000 ml Documented by: Nystatin (Nystatin) 1 appln EXT QID [facility] Stop: 10/22/19 16:59 Last Admin: 09/25/19 20:47 Dose: 1 appln Documented by: Pravastatin Sodium (Pravachol) 20 mg PO QDD [facility] Stop: 10/22/19 16:29 Last Admin: 09/25/19 16:44 Dose: 20 mg Documented by: Propofol (Diprivan Bolus From Bag) 20 mg IV Q5M PRN PRN Reason: Sedation Stop: 09/27/19 00:43 Topiramate (Topamax) 50 mg PO HS [facility] Stop: 10/22/19 20:59 Last Admin: 09/25/19 20:48 Dose: 50 mg Documented by: Trazodone HCl (Desyrel) 150 mg PO HS [facility] Stop: 10/22/19 20:59 Last Admin: 09/23/19 20:28 Dose: Not Given Documented by: PG Care Time/CCT Total # of Minutes Spent Total Time Spent with Patient: Total time spent is greater than 50% in coordination of care (as documented) at patient's floor/unit and/or counseling patient: Coding Level of Care Code 84323 Subseq Hosp Care Lvl 3 Diagnoses Acute hypoxemic respiratory failure J96.01 Gram-negative bacteremia R78.81 Sepsis A41.9 Acute kidney injury N17.9 A-fib I48.2 Atrial fibrillation type: chronic Diabetes E11.9; Z79.4 Diabetes mellitus type: type 2 Diabetes mellitus extermination supervisor insulin use: with extermination supervisor use Diabetes mellitus complication status: without complication H/O pancreatic cancer Z85.07 Depression with anxiety F41.8 Stroke I63.9 DVT prophylaxis Z29.9 (1) A-fib Atrial fibrillation type: chronic Qualified Code(s): I48.2 - Chronic atrial fibrillation (2) Diabetes Diabetes mellitus type: type 2 Diabetes mellitus extermination supervisor insulin use: with retirement use Diabetes mellitus complication status: without complication Qualified Code(s): E11.9 - Type 2 diabetes mellitus without complications; Z79.4 - rat exterminator (current) use of insulin
--- NOTE | 2019-09-25 22:53 | Electrocardiogram Report ---
Test Reason : Blood Pressure : / mmHG Vent. Rate : 070 BPM Atrial Rate : 227 BPM P-R Int : 000 ms QRS Dur : 124 ms QT Int : 466 ms P-R-T Axes : 000 046 266 degrees QTc Int : 503 ms Ventricular-paced rhythm Abnormal ECG When compared with ECG of 24-SEP-2019 07:00, No significant change was found Confirmed by Jose Greene ([id number]) on 09/25/2019 10:53:02 PM Referred By: REFERRED SELF Confirmed By:Jose Greene
[2019-09-26] MEDS: INSULIN ASPART 100 UNITS/ML 3 ML PEN SC SCH ×5 (04:01→19:59)
[2019-09-26 05:00] LABS: Basophils # (auto) 0.02 K/uL (0-0.2); Basophils % (auto) 0.2 %; Eosinophils # (auto) 0.03 K/uL (0-0.5); Eosinophils % (auto) 0.3 %; Hemoglobin 9.4 g/dL (12.0-16.0); Immature Granulocytes # (auto) 0.21 K/uL (0.00-0.02); Immature Granulocytes % (auto) 2.3 %; Lymphocytes % (auto) 13.1 %; Mean Corpuscular Hemoglobin 30.5 pg (25-34); Mean Corpuscular Hgb Conc 33.6 g/dL (32-36); Mean Corpuscular Volume 90.9 fL (80-100); Mean Platelet Volume 12.4 fL (7.4-10.4); Monocytes # (auto) 1.16 K/uL (0.11-0.59); Monocytes % (auto) 12.7 %; Neutrophils # (auto) 6.53 K/uL (1.4-6.5); Neutrophils % (auto) 71.4 %; Nucleated RBC # (auto) 0.02 K/uL (0-0); Nucleated RBC % (auto) 0.2 %; Platelet Count 204 K/uL (130-400); RDW Coefficient of Variation 17.6 % (11.5-14.5); RDW Standard Deviation 58.3 fL (36.4-46.3); Red Blood Count 3.08 M/uL (4.2-5.4); White Blood Count 9.15 K/uL (4.8-10.8)
[2019-09-26 05:42] LABS: iSTAT Allen Test Pass; iSTAT Art Bld Gas pCO2 Correct 29 mmHg (35-46); iSTAT Art Bld Gas pH Corrected 7.439 (7.35-7.45); iSTAT Arterial Blood Gas HCO3 20 meg/L (19-24); iSTAT Arterial Blood Gas pCO2 29 mmHg (35-46); iSTAT Arterial Blood Gas pH 7.45 (7.35-7.45); iSTAT Arterial Blood Gas pO2 78 mmHg (80-95); iSTAT Arterial Blood Gas pO2 C 80; iSTAT Carbon Dioxide 21 mmol/L (24-31); iSTAT Hematocrit 25 % (37-47); iSTAT Hemoglobin 8.5 g/dl (12.0-16.0); iSTAT Potassium 3.3 mmol/L (3.3-5.0); iSTAT Site R Radial; iSTAT Sodium 152 mmol/L (135-144)
[2019-09-26 06:29] LABS: BUN Creatinine Ratio 46.2 (10-20); Calcium 10.1 mg/dl (8.5-10.1); Creatinine Clr Calc Pharmacy 84.7 ml/min; Est GFR (African American) 97.6; Est GFR (Non-African American) 84.2; Magnesium 1.8 mg/dl (1.8-2.4); Potassium 3.4 mmol/L (3.5-5.1)
[2019-09-26 06:30] LABS: Phosphorus 2.1 mg/dl (2.5-4.9)
--- NOTE | 2019-09-26 07:51 | XRay Report ---
XR chest 1V portable CLINICAL HISTORY: intubation tube position COMPARISON STUDY: 09/25/2019 FINDINGS: Endotracheal tube 2 cm above the taisha. Unchanged left lower lobe consolidative change com bined with a left effusion. Persistent prominence of pulmonary vasculature. Bipolar cardiac pacer in good position. IMPRESSION: 1. Endotracheal tube 2 cm above the taisha. 2. Unchanging components of mild congestive failure versus pulmonary edema. 3. Unchanging left lower lobe atelectatic change/volume loss combined with a small left effusion. ACT 112: Negative or not required by law. The above report was generated using voice recognition software. It may contain grammatical, syntax or spelling errors. Electronically signed by: Haim Bal M.D. 09/26/2019 7:49 AM
[2019-09-26] MEDS: INSULIN GLARGINE SOLOSTAR 100 UNITS/ML 3 ML PEN SC SCH (08:05)
[2019-09-26] MEDS: LACTULOSE SYRUP 30 GM/45 ML UDP PO SCH ×3 (08:07→20:00)
[2019-09-26] MEDS: NYSTATIN CR 15 GM TUBE EXT SCH ×4 (08:08→20:05)
[2019-09-26] MEDS: HEPARIN SOD 5,000 UNIT/0.5 ML VIAL SQ SCH ×2 (08:08→20:00)
[2019-09-26] MEDS: MAGNESIUM OXIDE 400 MG TAB PO SCH ×2 (08:11→20:06)
[2019-09-26] MEDS: FAMOTIDINE 20 MG in SYRINGE 3 ML IV SCH ×2 (08:12→20:04)
--- NOTE | 2019-09-26 09:32 | Critical Care Progress Note ---
Date of Service September 26, 2019 Assessment & Plan (1) Gram-negative bacteremia: Reason Critically Ill: 63-year-old female with sepsis secondary to obstructive uropathy with new onset hypoxic respiratory failure. PLAN: Neuro: Acute encephalopathy -Likely metabolic in origin -Hyperammonemia -Lactulose 3 times daily -MRI and likely EEG today -Secondary to aneurysm clips placed in the 99 where unable to obtain an MRI Sedation and analgesia: -Holding sedatives secondary to unresponsiveness -Noncon head CT: No remarkable findings History stroke -Status post aneurysm clipping 1998 Migraines -Suspect Topamax use for migraines will discontinue given elevated ammonia level -Contour to be added by pharmacy, unable to visualize order in computerized physician shipping order clerk Resp: Acute hypoxic respiratory failure -Invasive mechanical ventilation day 4 -Pinpoint growth in sputum specimen -Suspect volume overload/cardiac dyssynchrony CV: History atrial fibrillation -Long-term anticoagulation: Holding in the hospital at this point -We will consider rate control: This was not prescribed previously Congestive heart failure -Elevated BNP, troponins within normal limits -Reviewed echo, normal EF IVC with reduced inspiratory collapse: Would be indicative of volume overload Status post pacemaker -Serial troponins, brain natruretic peptide Fluids/Renal: Acute kidney injury: Status post obstruction bilateral: Improving -Reviewed urology notes -Continue Schaffer for maximum drainage Hypokalemia: Continued replacement Hypophosphatemia: Hypernatremia: Converting tube feeds to less protein and increasing free water flush to 250 mL's free water every 6 -Recheck BMP today ID: Sepsis Multiple organisms: Gram-negative bacilli: X3, group B beta hemolytic Streptococcus Continued febrile illness -Continue current broad-spectrum antibiotics -E. coli and Klebsiella both are pansensitive -Group beta strep is sensitive to -Repeat blood culture: No growth to date -De-escalate from cefepime and Vanco to ceftriaxone, patient intubated known report of rash with ceftriaxone administration: Consider benefits outweigh risks -7-day course total duration GI/Nutrition: Start tube feeds Transaminitis -Most consistent with congestive hepatopathy -Hepatitis C previously negative Heme: Anemia DVT prophylaxis: Heparin twice daily Endocrine: ICU hyperglycemia protocol Vascular access: Peripheral IVs Code Status: Full code -Family meeting today at 1500 Disposition: ICU (2) Acute hypoxemic respiratory failure: (3) Hydroureteronephrosis: (4) Acute UTI: (5) CAROLA (acute kidney injury): (6) Sepsis: Admission and Anticipated Discharge Date Admission Date: September 22, 2019 Supervising Physician Co-Signing Physician Notes I had an extensive discussion with the patient's and palliative care, patient's indicated they had previously discussed wishes in event of cardiac arrest and she would not want heroic measures undertaken, accordingly I made the patient DNR in event of cardiac arrest. We discussed prognosis and treatment options and will continue current treatment plan to resolve the hyperammonemia and hopefully lead to liberation from the ventilator. Subjective No overnight events, reviewed CT findings no acute abnormality Review of Systems Review of Systems: Unobtainable due to endotracheal tube Physical Exam Physical Exam: General: Sedated Skin: Warm, dry, Head: Atraumatic Ears, nose, mouth and throat: Obscured by endotracheal tube Cardiovascular: Normal peripheral perfusion Respiratory: Coarse sounds bilaterally Gastrointestinal: Non distended Musculoskeletal: No deformity Results & Data Results & Data ([facility]) Vital Signs (Past 12 Hours) Vital Signs Temp Pulse Resp BP Pulse Ox 09/26/19 07:43 70 23 96 09/26/19 07:15 37.3 C 09/26/19 07:00 70 156/80 H 95 09/26/19 06:00 70 96 09/26/19 05:53 70 145/76 H 96 09/26/19 05:00 70 96 09/26/19 04:53 70 142/75 H 96 09/26/19 04:43 70 23 96 09/26/19 04:00 37.4 C 70 96 09/26/19 03:53 70 151/75 H 97 09/26/19 03:00 70 97 09/26/19 02:54 70 97 09/26/19 02:53 70 147/78 H 96 09/26/19 02:00 70 97 09/26/19 01:53 70 153/74 H 97 09/26/19 01:17 70 24 96 09/26/19 01:00 70 96 09/26/19 00:53 70 148/80 H 96 09/26/19 00:01 71 94 09/26/19 00:00 70 09/25/19 23:59 72 142/74 H 95 09/25/19 23:00 38.4 C H 70 95 09/25/19 22:53 38.4 C H 70 162/80 H 94 09/25/19 22:32 70 27 H 93 09/25/19 22:00 38.2 C H 70 93 09/25/19 21:53 38.2 C H 70 163/90 H 92 Coding Level of Care Code Critical Care 1st 30-74 mins Diagnoses Gram-negative bacteremia R78.81 Acute hypoxemic respiratory failure J96.01 Hydroureteronephrosis N13.30 Acute UTI N39.0 CAROLA (acute kidney injury) N17.9 Sepsis A41.9 Sepsis acute organ dysfunction status: unspecified Sepsis type: sepsis due to unspecified organism Time Spent (min) 55 Comment I have personally spent 55 minutes of critical care time in the direct management of this patient. This is a life/limb threatening event. This includes time spent evaluating patient, direct bedside care, chart review, lissett cing orders, interpretation of diagnostic studies, discussion with consultants, patient, and/or family members regarding treatment decisions, as well as other required patient management activities. This time is exclusive of all separately billable procedures, and teaching time and separate from and in addition to any other critical care service time. (1) Sepsis Sepsis acute organ dysfunction status: unspecified Sepsis type: sepsis due to unspecified organism Qualified Code(s): A41.9 - Sepsis, unspecified organism
[2019-09-26] MEDS ORDERED: POTASSIUM PHOSPHATE 21 MMOL in SODIUM CHLORIDE 0.9% 500 ML IV ONE (10:45)
[2019-09-26] MEDS: THIAMINE HCL 100 MG TAB PO SCH (10:51)
[2019-09-26] MEDS: cefTRIAXone SODIUM 2,000 MG in DEXTROSE 5% 50 ML IV SCH (10:52)
[2019-09-26] MEDS: GABAPENTIN 100 MG CAP PO SCH ×4 (11:46→20:01)
[2019-09-26] MEDS: PEPTAMEN 1.5 CAL 1,000 ML BAG NG SCH (13:12)
[2019-09-26] MEDS: levOCARNitine (with sugar) 100 MG/ML SOLUTION PO SCH ×3 (13:13→20:00)
[2019-09-26] MEDS ORDERED: INSULIN PROTOCOL GOAL RANGE ONE (13:25)
--- NOTE | 2019-09-26 13:54 | Pharmacy Report ---
Pharmacy Glycemic Short Note 2 - Date of Service September 26, 2019 - Glycemic Short BSG Results (Last 24 hours): 09/25/19 09/25/19 09/25/19 16:49 19:21 23:13 Glucose POC Glucose 180 H 172 H 206 H 09/26/19 09/26/19 09/26/19 03:47 04:47 05:46 Glucose Cancelled 237 H POC Glucose 229 H 09/26/19 09/26/19 09/26/19 07:57 12:07 12:10 Glucose POC Glucose 270 H 327 H* 314 H* OUTPATIENT ANTIDIABETIC REGIMEN: Outpatient Anti-diabetic Regimen: * Novolin 70/30 - 18 units BIDM * A1c pending for tomorrow Risk Factors for Insulin Resistance: * Infection: cefepime + daptomycin * Recent Surgery: POD #2 s/p cystoscopy with bilateral ureteral stent insertion * Diet: clear liquid ASSESSMENT: 09/25 * Patient was well controlled yesterday, but BSGs began trending upward overnight, lunch BSG 314 despite increased AM lantus and tightened carb coverage, TF formula also switched to higher carb content formula, therefore will begin an insulin infusion 09/23 * BSGs reasonably controlled over the last 24 hours, receiving 21 units of insulin total (15 basal, 6 units of bolus). BSG did spike yesterday afternoon after a hypoxic event that led to intubation and ICU transfer and was likely in part, a stress response. Fasting BSG was slightly high this morning and Lantus scale was adjusted accordingly. The patient has been NPO but was initia sheryl on Tube feeds and likely will reach goal tomorrow, if tolerating. Plan: * Starting IV insulin infusion per moderate stress protocol * Goal Range 110-180 mg/dl * In the critical care setting, continuous IV insulin infusion has been shown to be the best method for achieving glycemic targets. * Please note that the plan above was derived based on current level of insulin resistance and hospital stress. These recommendations are appropriate for inpatient admission only. Plan of care upon discharge will need to be reassessed to avoid potential outpatient hypo/hyperglycemia. Thank you.
[2019-09-26] MEDS: INSULIN REGULAR 250 UNITS in SODIUM CHLORIDE 0.9% 247.5 ML IV SCH (15:35)
--- NOTE | 2019-09-26 16:32 | Palliative Care Progress Note ---
Date of Service September 26, 2019 Assessment & Plan (1) Goals of care, counseling/discussion: This is a 63 year old female who presented to the [facility] from home after she started to have altered mental status. Per her son, he states that she has been declining over the past few weeks. Additionally, she was having abdominal pain and loose bowel movements. A cystoscopy was performed on September 21 and ureteral stones were discovered s/p bilateral ureteral stent placement. Pus was noted coming from the left kidney, right kidney drained clear urine. Subsequently, she became septic and started to have signs of acute respiratory failure and was intubated on September 22. There is also questionable volume overload as contributing factors to her decline. She remains intubated and failed her spontaneous breathing trial yesterday, September 23. Additional PMH includes: A-fib, pancreatic CA s/p Whipple procedure-1993, recurrent hospitalizations for pancreatitis, status post pacemaker, HTN, CAD, CVA, status post clipping of brain aneurysms-1998 and others. Urine grew out 3 organisms- group B strep, Klebsiella and E. coli -Met with Rad, attending ICU physician Dr. Muro at patient's bedside in room 103. The patient is intubated; however, no sedation infusing at this time. -Patient did not respond to voice or touch, did not respond to -Discussed CODE STATUS in detail- agrees to no resuscitation if she were to decline. CODE STATUS changed to DNR -Goal is to continue treating her infection, improve her ammonia level and monitor cognition. - tearful during visit-discussed upcoming decisions if patient does not make any significant improvement -Patient has 2 sons that live locally, 9 grandchildren and also some great- grandchildren. - and emotional after seeing his in the ICU, he also reports that he lost his mother and his sister over the past year here at [facility] -Will continue to follow and assist family with medical decision making (2) H/O pancreatic cancer: (3) Pacemaker: (4) Acute hypoxemic respiratory failure: (5) Kidney stone: Subjective Family meeting with and ICU attending, Dr. Muro at bedside in room 103. had not seen his since he brought her to the hospital on 09/21. reports that she appears much worse than he envisioned-was very tearful during the meeting. Patient is intubated but not sedated, does not respond to voice or touch. Patient with myoclonic jerking-her ammonia level reynaldo from 40.3 on admission to 110.9 today-patient on lactulose 30 g 3 times daily, her white blood cell count is decreasing-was 20.82 on admission, down to 9.15 today. Of concern patient's INR is elevated at 1.6, albumin decreased at 1.2, mildly elevated LFTs. Patient continuing to have low-grade temps-today's T-max is 100.0. Review of Systems Review of Systems: Unobtainable due to cognitive status Physical Exam Physical Exam: Patient intubated, not sedated unresponsive to voice or touch HEENT: Intubated, feeding tube in place Respirations: Unlabored, clear breath sounds CV: Regular rate Abdomen: Soft, no grimace with palpation Neuro: Intermittent extremity jerking, unresponsive to voice or touch Results & Data Vital Signs (Past 12 Hours) Vital Signs Temp Pulse Resp BP Pulse Ox 09/26/19 15:41 72 22 92 09/26/19 13:12 71 27 H 92 09/26/19 12:16 71 30 H 92 09/26/19 12:00 100.0 F H 09/26/19 11:53 70 140/72 93 09/26/19 10:53 70 156/76 H 94 09/26/19 08:53 70 166/83 H 97 09/26/19 08:00 70 09/26/19 07:43 70 23 96 09/26/19 07:15 99.1 F 09/26/19 07:00 70 156/80 H 95 09/26/19 06:00 70 96 09/26/19 05:53 70 145/76 H 96 09/26/19 05:00 70 96 09/26/19 04:53 70 142/75 H 96 09/26/19 04:43 70 23 96 PG Care Time/CCT Total # of Minutes Spent Total Time Spent with Patient: Total time spent 65 minutes with greater than 50% of the time spent at bedside discussing patient's current status, discussing CODE STATUS and goals of care. Prolonged Care Time Prolonged Care Time: Yes Total Prolonged Care Time: 30 Coding Level of Care Code 41510 Subseq Hosp Care Lvl 3 Diagnoses Goals of care, counseling/discussion Z71.89 H/O pancreatic cancer Z85.07 Pacemaker Z95.0 Acute hypoxemic respiratory failure J96.01 Kidney stone N20.0 Additional Codes Prolonged Care Time - Prolonged Care Time: Yes ([id number]) Time Spent (min) 65 Critical Care Time Prolonged Care Time Prolonged Care Time: Yes Total Prolonged Care Time: 30 65
[2019-09-26] MEDS: PRAVASTATIN SOD 20 MG TAB PO SCH (16:40)
[2019-09-26 16:58] LABS: BUN Creatinine Ratio 40.1 (10-20); Calcium 10.2 mg/dl (8.5-10.1); Creatinine Clr Calc Pharmacy 81.5 ml/min; Est GFR (African American) 93.1; Est GFR (Non-African American) 80.3; Potassium 3.3 mmol/L (3.5-5.1)
[2019-09-26] MEDS: CITALOPRAM 20 MG TAB PO SCH (20:00)
--- NOTE | 2019-09-26 21:56 | Hospitalist Progress Note ---
Date of Service September 26, 2019 Assessment & Plan (1) Acute hypoxemic respiratory failure: repeat CXR on 09/22 with pulmonary edema but also worsening infiltrates she had a non-productive cough prior to intubation differential would be pneumonia, pulmonary edema (cardiogenic vs non- cardiogenic) ABG with respiratory alkalosis, metabolic acidosis intubated afternoon of 09/22, management per ICU staff still on ventilator, tolerating CPAP today no response off of sedation, has encephalopathy not safe to extubate at this time CT head normal (2) Gram-negative bacteremia: due to UTI, urine culture with E coli and Klebsiella, mandujano sensitive blood cultures with E coli, Klebsiella, group B strep de-escalate antibiotics to Rocephin tmax 38.4 in past 24 hours, WBC going down to 9k today (3) Sepsis: sepsis due to complicated UTI with ureteral stones urine culture with E coli and Klebsiella blood cultures with E coli, Klebsiella, group B strep changed to Rocephin procalcitonin 50 on admission, repeat down to 19 the next day no evidence of shock, BP preserved however, this would constitute severe sepsis as she has organ failure with CAROLA and hypoxic respiratory failure lactic acid normal 09/22, checked twice repeat blood cultures with no growth thus far (4) Acute kidney injury: Patient is acute kidney injury with creatinine of 2.29, creatinine on July 2018 was 0.66. due to dehydration and sepsis aggressive IV hydration provided making adequate urine, Cr improved to 0.78 today, stable K low , hypernatremia, low phosphorus tube feeds initiated, lowering amount of protein due to elevated ammonia, increasing free water for hypernatremia (5) A-fib: holding anticoagulation as she cannot swallow, she had some hematuria initiate rate control echo with preserved EF (6) Diabetes: Patient typically takes 70/30 insulin 18 units twice daily this will be changed to basal bolus monitor for hypoglycemia, ICU protocol (7) H/O pancreatic cancer: Patient typically takes Creon there is pancreatic inflammation seen on intake CT scan, admission lipase is low (8) Depression with anxiety: Patient is on Celexa, Topamax and trazodone at home now with altered mental status Propofol off, using PRN Fentanyl CT head without acute changes (9) Stroke: Patient has history of cerebral aneurysm clipping in 1998 associated stroke. Patient takes antiplatelets of aspirin and pravastatin (10) DVT prophylaxis: scd /heparinfor dvt prevention (11) Metabolic encephalopathy: likely due to infection, elevated ammonia treating ammonia with Lactulose TID CT head normal MRI brain cannot be done due to metal clips from aneurysm in 1998 (12) Increased ammonia level: likely from liver congestion treat with Lactulose TID, had large BM this morning (13) Hypernatremia: will give free water flushes through OG tube (14) Hypokalemia: ICU replacement protocol (15) Goals of care, counseling/discussion: Dr. Olivia and Dr. Muro met with patient's this afternoon code status changed to DNR he understands prognosis is guarded, will continue to treat and look for improvements he is aware that he may need to make a difficult decision in coming days if status does not improve Admission and Anticipated Discharge Date Admission Date: September 22, 2019 Subjective patient off sedation but not responsive today withdrawals to pain ammonia elevated, started on lactulose, had a large BM reviewed labs discussed with Dr. Muro discussed with Dr. Olivia, she had a long family meeting with patient's code status changed to DNR, understands that patient has a guarded pr ognosis will continue to treat infection, try to lower ammonia, look for improvements in mental status he understands that he may have a difficult decision to make if she does not improve Review of Systems Review of Systems: Unobtainable due to cognitive status and Unobtainable due to endotracheal tube Physical Exam Constitutional: + mechanically ventilated Eyes: PERRL, conjunctivae normal, anicteric sclerae ENMT: external ear and nose normal, oropharynx normal Neck: trachea midline, no thyromegaly Respiratory: normal respiratory effort and symmetric chest movement Auscultation: no crackles, no rales, no rhonchi and no wheezes Cardiovascular: Rate/Rhythm: regular rate and regular rhythm Heart Sounds: normal S1 and normal S2; no murmur Vessels: no JVD Extremities: normal capillary refill; no edema Gastrointestinal (Abdomen): normal bowel sounds, soft, nontender, no hepatosplenomegaly Musculoskeletal: no cyanosis or clubbing, extremities motor strength 5/5 Head/Neck/Chest: normocephalic, head atraumatic and neck supple Extremities: no cyanosis and no clubbing Skin: no rashes, warm and dry Neurologic: no focal motor deficits Psychiatric: Orientation: + not alert, + not oriented to person, + not oriented to place and + not oriented to time Lymphatic: no cervical or axillary lymphadenopathy Results & Data Results & Data ([facility]) Vital Signs (Past 12 Hours) Vital Signs Temp Pulse Resp BP Pulse Ox 09/26/19 18:51 70 23 94 09/26/19 16:00 70 09/26/19 15:41 72 22 92 09/26/19 13:12 71 27 H 92 09/26/19 12:16 71 30 H 92 09/26/19 12:00 37.8 C H 09/26/19 11:53 70 140/72 93 09/26/19 10:53 70 156/76 H 94 Laboratory Results Laboratory Results - last 24 hr 09/25/19 09/26/19 09/26/19 23:13 03:47 04:47 WBC 9.15 RBC 3.08 L Hgb 9.4 L POC Hgb Hct 28.0 L POC Hct MCV 90.9 MCH 30.5 MCHC 33.6 RDW Std Deviation 58.3 H RDW Coeff of Evan 17.6 H Plt Count 204 MPV 12.4 H Immature Gran % (Auto) 2.3 Neut % (Auto) 71.4 Lymph % (Auto) 13.1 [place] % (Auto) 12.7 Eos % (Auto) 0.3 Baso % (Auto) 0.2 Neut # (Auto) 6.53 H Lymph # (Auto) 1.20 [place] # (Auto) 1.16 H Eos # (Auto) 0.03 Baso # (Auto) 0.02 Immature Gran # (Auto) 0.21 H Absolute Nucleated RBC 0.02 H Nucleated RBC % (auto) 0.2 Sample Site POC pH POC pCO2 POC pO2 POC HCO3 POC Total CO2 POC Base Excess ABG pH (Temp Correct) ABG pCO2 (Temp Corrct POC ABG pO2 at Pt Temp POC ABG O2 Sat Darwin Test O2 Delivery Device POC O2 Rate Minute Ventilation Tidal Volume PEEP POC Sodium Sodium POC Potassium Potassium Chloride Carbon Dioxide Anion Gap BUN Creatinine Est Cr Clr Drug Dosing Est GFR ( Amer) Est GFR (Non-Af Amer) BUN/Creatinine Ratio Glucose POC Glucose 206 H 229 H Calcium Phosphorus Magnesium Ammonia 09/26/19 09/26/19 09/26/19 04:47 04:47 05:28 WBC RBC Hgb POC Hgb 8.5 L Hct POC Hct 25 L MCV MCH MCHC RDW Std Deviation RDW Coeff of Evan Plt Count MPV Immature Gran % (Auto) Neut % (Auto) Lymph % (Auto) [place] % (Auto) Eos % (Auto) Baso % (Auto) Neut # (Auto) Lymph # (Auto) [place] # (Auto) Eos # (Auto) Baso # (Auto) Immature Gran # (Auto) Absolute Nucleated RBC Nucleated RBC % (auto) Sample Site R Radial POC pH 7.45 POC pCO2 29 L POC pO2 78 L POC HCO3 20 POC Total CO2 21 L POC Base Excess -4.0 ABG pH (Temp Correct) 7.439 ABG pCO2 (Temp Corrct 29 L POC ABG pO2 at Pt Temp 80 POC ABG O2 Sat 96.0 H Darwin Test Pass O2 Delivery Device Ventilator POC O2 Rate 12 Minute Ventilation 30 Tidal Volume 450 PEEP 5 POC Sodium 152 H Sodium Cancelled POC Potassium 3.3 Potassium Cancelled Chloride Cancelled Carbon Dioxide Cancelled Anion Gap Cancelled BUN Cancelled Creatinine Cancelled Est Cr Clr Drug Dosing Cancelled Est GFR ( Amer) Cancelled Est GFR (Non-Af Amer) Cancelled BUN/Creatinine Ratio Cancelled Glucose Cancelled POC Glucose Calcium Cancelled Phosphorus Cancelled Magnesium Cancelled Ammonia 09/26/19 09/26/19 09/26/19 05:46 05:46 07:57 WBC RBC Hgb POC Hgb Hct POC Hct MCV MCH MCHC RDW Std Deviation RDW Coeff of Evan Plt Count MPV Immature Gran % (Auto) Neut % (Auto) Lymph % (Auto) [place] % (Auto) Eos % (Auto) Baso % (Auto) Neut # (Auto) Lymph # (Auto) [place] # (Auto) Eos # (Auto) Baso # (Auto) Immature Gran # (Auto) Absolute Nucleated RBC Nucleated RBC % (auto) Sample Site POC pH POC pCO2 POC pO2 POC HCO3 POC Total CO2 POC Base Excess ABG pH (Temp Correct) ABG pCO2 (Temp Corrct POC ABG pO2 at Pt Temp POC ABG O2 Sat Darwin Test O2 Delivery Device POC O2 Rate Minute Ventilation Tidal Volume PEEP POC Sodium Sodium 154 H POC Potassium Potassium 3.4 L Chloride 123 H Carbon Dioxide 23 Anion Gap 8.0 BUN 35 H Creatinine 0.75 Est Cr Clr Drug Dosing 84.7 Est GFR ( Amer) 97.6 Est GFR (Non-Af Amer) 84.2 BUN/Creatinine Ratio 46.2 H Glucose 237 H POC Glucose 270 H Calcium 10.1 Phosphorus 2.1 L Magnesium 1.8 Ammonia 110.9 H 09/26/19 09/26/19 09/26/19 12:07 12:10 14:41 WBC RBC Hgb POC Hgb Hct POC Hct MCV MCH MCHC RDW Std Deviation RDW Coeff of Evan Plt Count MPV Immature Gran % (Auto) Neut % (Auto) Lymph % (Auto) [place] % (Auto) Eos % (Auto) Baso % (Auto) Neut # (Auto) Lymph # (Auto) [place] # (Auto) Eos # (Auto) Baso # (Auto) Immature Gran # (Auto) Absolute Nucleated RBC Nucleated RBC % (auto) Sample Site POC pH POC pCO2 POC pO2 POC HCO3 POC Total CO2 POC Base Excess ABG pH (Temp Correct) ABG pCO2 (Temp Corrct POC ABG pO2 at Pt Temp POC ABG O2 Sat Darwin Test O2 Delivery Device POC O2 Rate Minute Ventilation Tidal Volume PEEP POC Sodium Sodium POC Potassium Potassium Chloride Carbon Dioxide Anion Gap BUN Creatinine Est Cr Clr Drug Dosing Est GFR ( Amer) Est GFR (Non-Af Amer) BUN/Creatinine Ratio Glucose POC Glucose 327 H* 314 H* 254 H Calcium Phosphorus Magnesium Ammonia 09/26/19 09/26/19 09/26/19 15:34 16:02 16:28 WBC RBC Hgb POC Hgb Hct POC Hct MCV MCH MCHC RDW Std Deviation RDW Coeff of Evan Plt Count MPV Immature Gran % (Auto) Neut % (Auto) Lymph % (Auto) [place] % (Auto) Eos % (Auto) Baso % (Auto) Neut # (Auto) Lymph # (Auto) [place] # (Auto) Eos # (Auto) Baso # (Auto) Immature Gran # (Auto) Absolute Nucleated RBC Nucleated RBC % (auto) Sample Site POC pH POC pCO2 POC pO2 POC HCO3 POC Total CO2 POC Base Excess ABG pH (Temp Correct) ABG pCO2 (Temp Corrct POC ABG pO2 at Pt Temp POC ABG O2 Sat Darwin Test O2 Delivery Device POC O2 Rate Minute Ventilation Tidal Volume PEEP POC Sodium Sodium 156 H* POC Potassium Potassium 3.3 L Chloride 124 H Carbon Dioxide 24 Anion Gap 8.0 BUN 31 H Creatinine 0.78 Est Cr Clr Drug Dosing 81.5 Est GFR ( Amer) 93.1 Est GFR (Non-Af Amer) 80.3 BUN/Creatinine Ratio 40.1 H Glucose 233 H POC Glucose 240 H 232 H Calcium 10.2 H Phosphorus Magnesium Ammonia 09/26/19 09/26/19 09/26/19 17:25 17:26 18:34 WBC RBC Hgb POC Hgb Hct POC Hct MCV MCH MCHC RDW Std Deviation RDW Coeff of Evan Plt Count MPV Immature Gran % (Auto) Neut % (Auto) Lymph % (Auto) [place] % (Auto) Eos % (Auto) Baso % (Auto) Neut # (Auto) Lymph # (Auto) [place] # (Auto) Eos # (Auto) Baso # (Auto) Immature Gran # (Auto) Absolute Nucleated RBC Nucleated RBC % (auto) Sample Site POC pH POC pCO2 POC pO2 POC HCO3 POC Total CO2 POC Base Excess ABG pH (Temp Correct) ABG pCO2 (Temp Corrct POC ABG pO2 at Pt Temp POC ABG O2 Sat Darwin Test O2 Delivery Device POC O2 Rate Minute Ventilation Tidal Volume PEEP POC Sodium Sodium POC Potassium Potassium Chloride Carbon Dioxide Anion Gap BUN Creatinine Est Cr Clr Drug Dosing Est GFR ( Amer) Est GFR (Non-Af Amer) BUN/Creatinine Ratio Glucose POC Glucose 283 H 262 H 263 H Calcium Phosphorus Magnesium Ammonia 09/26/19 09/26/19 09/26/19 19:35 20:40 21:34 WBC RBC Hgb POC Hgb Hct POC Hct MCV MCH MCHC RDW Std Deviation RDW Coeff of Evan Plt Count MPV Immature Gran % (Auto) Neut % (Auto) Lymph % (Auto) [place] % (Auto) Eos % (Auto) Baso % (Auto) Neut # (Auto) Lymph # (Auto) [place] # (Auto) Eos # (Auto) Baso # (Auto) Immature Gran # (Auto) Absolute Nucleated RBC Nucleated RBC % (auto) Sample Site POC pH POC pCO2 POC pO2 POC HCO3 POC Total CO2 POC Base Excess ABG pH (Temp Correct) ABG pCO2 (Temp Corrct POC ABG pO2 at Pt Temp POC ABG O2 Sat Darwin Test O2 Delivery Device POC O2 Rate Minute Ventilation Tidal Volume PEEP POC Sodium Sodium POC Potassium Potassium Chloride Carbon Dioxide Anion Gap BUN Creatinine Est Cr Clr Drug Dosing Est GFR ( Amer) Est GFR (Non-Af Amer) BUN/Creatinine Ratio Glucose POC Glucose 249 H 231 H 218 H Calcium Phosphorus Magnesium Ammonia Microbiology 09/24/19 12:58 Sputum,Vent Suction Gram Stain - Final 09/24/19 12:58 Sputum,Vent Suction Sputum Culture - Final Dora albicans/dubliniensis Yeast not Dora albicans/dub 09/24/19 03:23 Blood Aerobic Blood Culture - Preliminary No growth in Aerobic bottle after 48 hours. 09/24/19 03:23 Blood Anaerobic Blood Culture - Preliminary No growth in Anaerobic bottle after 48 hours. 09/24/19 03:12 Blood Aerobic Blood Culture - Preliminary No growth in Aerobic bottle after 48 hours. 09/24/19 03:12 Blood Anaerobic Blood Culture - Preliminary No growth in Anaerobic bottle after 48 hours. 09/22/19 10:33 Blood Aerobic Blood Culture - Final Group B Beta Strep Klebsiella pneumoniae Escherichia coli Escherichia coli#2 09/22/19 10:33 Blood Anaerobic Blood Culture - Final Group B Beta Strep Klebsiella pneumoniae Escherichia coli 09/22/19 09:56 Blood Aerobic Blood Culture - Final Group B Beta Strep Klebsiella pneumoniae 09/22/19 09:56 Blood Anaerobic Blood Culture - Final Group B Beta Strep Klebsiella pneumoniae 09/22/19 09:44 Urine,Clean Catch Urine Culture - Final Klebsiella pneumoniae Escherichia coli Medications Administered Current Inpatient Medications Acetaminophen (Tylenol) 650 mg MN Q4H PRN PRN Reason: Fever Stop: 10/24/19 05:06 Last Admin: 09/25/19 23:17 Dose: 650 mg Documented by: Citalopram Hydrobromide (Celexa) 20 mg PO HS TERRY Stop: 10/22/19 20:59 Last Admin: 09/26/19 20:00 Dose: 20 mg Documented by: Dextrose (Dextrose 50%) 25 - 50 ml IV UD PRN; Protocol PRN Reason: Hypoglycemia Protocol Stop: 10/22/19 13:25 Enteral Nutritional Formula (Peptamen 1.5 Steve) 1,000 ml NG UD TERRY; Protocol Last Admin: 09/26/19 13:12 Dose: 1,000 ml Documented by: Fentanyl Citrate (Fentanyl Citrate) 100 mcg IV Q2H PRN PRN Reason: Severe Pain (7,8,9,10) Stop: 10/07/19 14:51 Last Admin: 09/25/19 16:43 Dose: 100 mcg Documented by: Gabapentin (Neurontin) 100 mg PO TID@1200,1700,2100 [facility] Stop: 10/22/19 14:15 Last Admin: 09/26/19 20:01 Dose: 100 mg Documented by: Glucagon (Glucagen) 1 mg SQ UD PRN; Protocol PRN Reason: Hypoglycemia Protocol Stop: 10/22/19 13:25 Glucose (Dex4 Glucose) 4 - 8 tabs PO UD PRN; Protocol PRN Reason: Hypoglycemia Protocol Stop: 10/22/19 13:25 Glucose (Glucose 40%) 15 - 30 gm PO UD PRN; Protocol PRN Reason: Hypoglycemia Protocol Stop: 10/22/19 13:25 Heparin Sodium (Porcine) (Heparin Sodium (Porcine)) 5,000 units SQ Q12 TERRY Stop: 10/22/19 20:59 Last Admin: 09/26/19 20:00 Dose: 5,000 units Documented by: Propofol (Diprivan) 1,000 mg in 100 mls @ 0 mls/hr IV .Q0M [facility]; Protocol Stop: 09/27/19 00:44 Last Titration: 09/25/19 19:15 Dose: Infused Documented by: Ceftriaxone Sodium 2,000 mg/ (Dextrose) 70 mls @ 140 mls/hr IV Q24H [facility] Stop: 10/09/19 09:59 Last Infusion: 09/26/19 11:46 Dose: Infused Documented by: Famotidine 20 mg/ Syringe 5 mls @ 2.5 mls/min IV BID [facility] Stop: 10/24/19 09:44 Last Admin: 09/26/19 20:04 Dose: 2.5 mls/min Documented by: Insulin Human Regular 250 (units/ Sodium Chloride) 250 mls @ 3 mls/hr IV .Q24H [facility]; Protocol Stop: 10/26/19 13:29 Last Titration: 09/26/19 21:30 Dose: 3 units/hr, 3 mls/hr Documented by: Insulin Aspart (Novolog Flexpen) 0 units SC Q4 [facility] Stop: 10/24/19 11:59 Last Admin: 09/26/19 19:59 Dose: 3 units Documented by: Insulin Glargine (Lantus Solostar Pen) 0 units SC BID [facility]; Protocol Stop: 10/22/19 20:59 Last Admin: 09/26/19 08:05 Dose: 14 units Documented by: Lactulose (Chronulac) 30 gm PO TID [facility] Stop: 10/26/19 08:59 Last Admin: 09/26/19 20:00 Dose: 30 gm Documented by: Levocarnitine (Carnitor) 1,000 mg PO QID [facility] Stop: 10/26/19 12:59 Last Admin: 09/26/19 20:00 Dose: 1,000 mg Documented by: Magnesium Oxide (Mag-Ox) 400 mg PO BID [facility] Stop: 10/22/19 20:59 Last Admin: 09/26/19 20:06 Dose: 400 mg Documented by: Midazolam HCl (Versed) 1 mg IV Q2H PRN PRN Reason: agitation/anxiety Stop: 10/23/19 14:51 Last Admin: 09/23/19 23:16 Dose: 1 mg Documented by: Miscellaneous (Carbohydrates For Hypoglycemia) 15 - 30 gm PO UD PRN PRN Reason: Hypoglycemia Protocol Stop: 10/22/19 13:25 Miscellaneous (Order Awaiting Action) 1 ea N/A QS [facility] Stop: 10/22/19 15:59 Last Admin: 09/24/19 08:36 Dose: Not Given Documented by: Miscellaneous (Order Awaiting Action) 1 ea N/A QS [facility] Stop: 10/22/19 15:59 Last Admin: 09/24/19 08:36 Dose: Not Given Documented by: Miscellaneous Information (Consult Glycemic Management Pharmacy) 1 ea N/A UD PRN; Protocol PRN Reason: Consult Stop: 10/22/19 13:55 Nystatin (Nystatin) 1 appln EXT QID [facility] Stop: 10/22/19 16:59 Last Admin: 09/26/19 20:05 Dose: 1 appln Documented by: Pravastatin Sodium (Pravachol) 20 mg PO QDD [facility] Stop: 10/22/19 16:29 Last Admin: 09/26/19 16:40 Dose: 20 mg Documented by: Propofol (Diprivan Bolus From Bag) 20 mg IV Q5M PRN PRN Reason: Sedation Stop: 09/27/19 00:43 Thiamine HCl (Vitamin B-1) 100 mg PO QAM [facility] Stop: 10/26/19 09:59 Last Admin: 09/26/19 10:51 Dose: 100 mg Documented by: Trazodone HCl (Desyrel) 150 mg PO HS [facility] Stop: 10/22/19 20:59 Last Admin: 09/23/19 20:28 Dose: Not Given Documented by: PG Care Time/CCT Total # of Minutes Spent Total Time Spent with Patient: Total time spent is greater than 50% in coordination of care (as documented) at patient's floor/unit and/or counseling patient: Coding Level of Care Code 03822 Subseq Hosp Care Lvl 3 Diagnoses Acute hypoxemic respiratory failure J96.01 Gram-negative bacteremia R78.81 Sepsis A41.9 Acute kidney injury N17.9 A-fib I48.2 Atrial fibrillation type: chronic Diabetes E11.9; Z79.4 Diabetes mellitus type: type 2 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 Diabetes mellitus complication status: without complication H/O pancreatic cancer Z85.07 Depression with anxiety F41.8 Stroke I63.9 DVT prophylaxis Z29.9 Metabolic encephalopathy G93.41 Increased ammonia level R79.89 Hypernatremia E87.0 Hypokalemia E87.6 Goals of care, counseling/discussion Z71.89 (1) A-fib Atrial fibrillation type: chronic Qualified Code(s): I48.2 - Chronic atrial fibrillation (2) Diabetes Diabetes mellitus type: type 2 Diabetes mellitus penitentiary insulin use: with penitentiary use Diabetes mellitus complication status: without complication Qualified Code(s): E11.9 - Type 2 diabetes mellitus without complications; Z79.4 - [facility] (current) use of insulin
[2019-09-27] MEDS: INSULIN ASPART 100 UNITS/ML 3 ML PEN SC SCH ×7 (00:38→23:36)
[2019-09-27 04:37] LABS: Hemoglobin 9.2 g/dL (12.0-16.0); Mean Corpuscular Hemoglobin 31.1 pg (25-34); Mean Corpuscular Hgb Conc 32.9 g/dL (32-36); Mean Corpuscular Volume 94.6 fL (80-100); Mean Platelet Volume 11.2 fL (7.4-10.4); Nucleated RBC # (auto) 0.07 K/uL (0-0); Nucleated RBC % (auto) 0.6 %; Platelet Count 183 K/uL (130-400); RDW Coefficient of Variation 17.2 % (11.5-14.5); RDW Standard Deviation 59.3 fL (36.4-46.3); Red Blood Count 2.96 M/uL (4.2-5.4); White Blood Count 12.06 K/uL (4.8-10.8)
--- NOTE | 2019-09-27 04:43 | Electrocardiogram Report ---
Test Reason : Blood Pressure : / mmHG Vent. Rate : 070 BPM Atrial Rate : 072 BPM P-R Int : 000 ms QRS Dur : 136 ms QT Int : 426 ms P-R-T Axes : 000 033 -56 degrees QTc Int : 460 ms Ventricular-paced rhythm Abnormal ECG When compared with ECG of 25-SEP-2019 06:37, No significant change was found Confirmed by Jose Greene ([id number]) on 09/27/2019 4:43:17 AM Referred By: REFERRED SELF Confirmed By:Jose Greene
[2019-09-27 05:05] LABS: BUN Creatinine Ratio 36.5 (10-20); Calcium 10.3 mg/dl (8.5-10.1); Creatinine Clr Calc Pharmacy 84.7 ml/min; Est GFR (African American) 97.6; Est GFR (Non-African American) 84.2; Magnesium 1.6 mg/dl (1.8-2.4)
[2019-09-27 05:18] LABS: Basophils # (auto) 0.05 K/uL (0-0.2); Basophils % (auto) 0.4 %; Eosinophils # (auto) 0.06 K/uL (0-0.5); Eosinophils % (auto) 0.5 %; Immature Granulocytes # (auto) 0.35 K/uL (0.00-0.02); Immature Granulocytes % (auto) 2.9 %; Lymphocytes # (auto) 1.97 K/uL (1.2-3.4); Lymphocytes % (auto) 16.3 %; Monocytes # (auto) 1.26 K/uL (0.11-0.59); Monocytes % (auto) 10.4 %; Neutrophils # (auto) 8.37 K/uL (1.4-6.5); Neutrophils % (auto) 69.5 %; RBC Morphology Unremarkable
[2019-09-27 05:22] LABS: Phosphorus 1.3 mg/dl (2.5-4.9)
[2019-09-27] MEDS ORDERED: POTASSIUM CHLORIDE 20 MEQ/15 ML UDC PO ONE (05:30)
[2019-09-27] MEDS ORDERED: POTASSIUM PHOS 3 MMOL/1 ML INFUSION IV STA (05:36)
[2019-09-27] MEDS: TUBE FEEDING WATER FLUSH OG SCH ×5 (05:55→21:03)
[2019-09-27] MEDS: MAGNESIUM SULFATE / D5W 1 GM/100 ML BAG IV SCH ×3 (05:56→09:45)
[2019-09-27 06:02] LABS: iSTAT Allen Test Pass; iSTAT Art Bld Gas pCO2 Correct 36 mmHg (35-46); iSTAT Art Bld Gas pH Corrected 7.451 (7.35-7.45); iSTAT Arterial Blood Gas HCO3 25 meg/L (19-24); iSTAT Arterial Blood Gas pCO2 34 mmHg (35-46); iSTAT Arterial Blood Gas pH 7.47 (7.35-7.45); iSTAT Arterial Blood Gas pO2 68 mmHg (80-95); iSTAT Arterial Blood Gas pO2 C 74; iSTAT Carbon Dioxide 26 mmol/L (24-31); iSTAT Hematocrit 24 % (37-47); iSTAT Hemoglobin 8.2 g/dl (12.0-16.0); iSTAT Potassium 2.8 mmol/L (3.3-5.0); iSTAT Site R Radial; iSTAT Sodium 153 mmol/L (135-144)
[2019-09-27] MEDS ORDERED: POTASSIUM PHOSPHATE 21 MMOL in DEXTROSE 5% 500 ML IV ONE (06:30)
[2019-09-27] MEDS ORDERED: POTASSIUM PHOSPHATE 21 MMOL in SODIUM CHLORIDE 0.9% 500 ML IV ONE (06:30)
[2019-09-27] MEDS ORDERED: POTASSIUM PHOSPHATE 30 MMOL in DEXTROSE 5% 500 ML IV ONE (06:30)
[2019-09-27] MEDS: LACTULOSE SYRUP 30 GM/45 ML UDP PO SCH ×3 (07:53→21:02)
[2019-09-27] MEDS: HEPARIN SOD 5,000 UNIT/0.5 ML VIAL SQ SCH (07:53)
[2019-09-27] MEDS: levOCARNitine (with sugar) 100 MG/ML SOLUTION PO SCH ×4 (07:53→21:02)
[2019-09-27] MEDS: INSULIN GLARGINE SOLOSTAR 100 UNITS/ML 3 ML PEN SC SCH ×2 (07:54→21:03)
[2019-09-27] MEDS: NYSTATIN CR 15 GM TUBE EXT SCH ×4 (07:54→21:05)
[2019-09-27] MEDS: THIAMINE HCL 100 MG TAB PO SCH (07:54)
[2019-09-27] MEDS: FAMOTIDINE 20 MG in SYRINGE 3 ML IV SCH ×2 (07:57→21:01)
[2019-09-27] MEDS: MAGNESIUM OXIDE 400 MG TAB PO SCH ×2 (07:57→21:07)
--- NOTE | 2019-09-27 09:39 | Critical Care Progress Note ---
Date of Service September 27, 2019 Assessment & Plan (1) Gram-negative bacteremia: Reason Critically Ill: 63-year-old female with sepsis secondary to obstructive uropathy with new onset hypoxic respiratory failure. PLAN: Neuro: Acute encephalopathy -Likely metabolic in origin -Hyperammonemia: Improving -Lactulose 3 times daily -MRI unable to obtain secondary to aneurysm clipping Sedation and analgesia: -Holding sedatives secondary to unresponsiveness -Noncon head CT: No remarkable findings History stroke -Status post aneurysm clipping 1998 Migraines -Suspect Topamax use for migraines will discontinue given elevated ammonia level -Carnitor added Resp: Acute hypoxic respiratory failure -Invasive mechanical ventilation day 5 -Yeast seen on bronchoscopy: This is normally treated as colonization -Neurologically unable to evaluate extubation parameters: -Patient does have strong cough, minute ventilation is approximately 11 L a minute, tidal volumes adequate on pressure support of 500, -We will proceed with trial of extubation and would reintubate for respiratory insufficiency CV: History atrial fibrillation -Long-term anticoagulation: Holding in the hospital at this point -Persistently paced rhythm -We will restart Eliquis Congestive heart failure -Elevated BNP, troponins within normal limits -Reviewed echo, normal EF IVC with reduced inspiratory collapse: Would be indicative of volume overload Status post pacemaker -Serial troponins, brain natruretic peptide Fluids/Renal: Acute kidney injury: Status post obstruction bilateral: Improving -Reviewed urology notes -Continue Schaffer for maximum drainage Hypokalemia: Continued replacement Hypophosphatemia: Hypernatremia: Continue to increase free water flushes suspect this is post ATN recovery ID: Sepsis Multiple organisms: Gram-negative bacilli: X3, group B beta hemolytic Streptococcus Continued febrile illness -Continue current broad-spectrum antibiotics -E. coli and Klebsiella both are pansensitive -Group beta strep is sensitive to -Repeat blood culture: No growth to date -De-escalate from cefepime and Vanco to ceftriaxone, patient intubated known report of rash with ceftriaxone administration: Consider benefits outweigh risks -7-day course total duration GI/Nutrition: Start tube feeds Transaminitis -Most consistent with congestive hepatopathy -Hepatitis C previously negative -LFTs in a.m. Heme: Anemia DVT prophylaxis: Converting to Eliquis Endocrine: ICU hyperglycemia protocol - insulin infusion Vascular access: Peripheral IVs Code Status: Full code -Family meeting: Converted to DNR in event of cardiac arrest Disposition: ICU (2) Acute hypoxemic respiratory failure: (3) Hydroureteronephrosis: (4) Acute UTI: (5) CAROLA (acute kidney injury): (6) Sepsis: Admission and Anticipated Discharge Date Admission Date: September 22, 2019 Subjective No overnight events Review of Systems Review of Systems: Unobtainable due to endotracheal tube Physical Exam Physical Exam: General: Sedated, now opens eyes, nonpurposeful movement with movement of all 4 extremities Skin: Warm, dry, Head: Atraumatic Ears, nose, mouth and throat: Obscured by endotracheal tube Cardiovascular: Normal peripheral perfusion Respiratory: Coarse sounds bilaterally Gastrointestinal: Non distended Musculoskeletal: No deformity Results & Data Results & Data ([facility]) Vital Signs (Past 12 Hours) Vital Signs Temp Pulse Resp BP Pulse Ox 09/27/19 08:00 38.1 C H 70 92 09/27/19 07:53 38.1 C H 70 106/95 92 09/27/19 07:18 72 26 H 94 09/27/19 07:00 75 94 09/27/19 06:00 74 94 09/27/19 05:54 71 142/117 H 94 09/27/19 05:00 38.3 C H 74 94 09/27/19 04:54 72 132/104 H 95 09/27/19 04:00 70 93 09/27/19 03:53 70 127/78 94 09/27/19 03:42 71 23 93 09/27/19 03:00 74 93 09/27/19 02:54 71 154/76 H 93 09/27/19 02:00 70 93 09/27/19 01:53 72 152/81 H 94 09/27/19 01:00 70 94 09/27/19 00:54 71 148/98 H 94 09/27/19 00:00 37.2 C 71 94 09/26/19 23:55 76 139/69 94 09/26/19 23:45 71 25 H 93 09/26/19 23:00 71 93 09/26/19 22:54 70 156/79 H 93 09/26/19 22:00 70 94 09/26/19 21:56 71 25 H 93 09/26/19 21:54 72 117/77 92 Coding Level of Care Code Critical Care 1st 30-74 mins Diagnoses Gram-negative bacteremia R78.81 Acute hypoxemic respiratory failure J96.01 Hydroureteronephrosis N13.30 Acute UTI N39.0 CAROLA (acute kidney injury) N17.9 Sepsis A41.9 Sepsis acute organ dysfunction status: unspecified Sepsis type: sepsis due to unspecified organism Time Spent (min) 55 Comment I have personally spent 55 minutes of critical care time in the direct management of this patient. This is a life/limb threatening event. This includes time spent evaluating patient, direct bedside care, chart review, placing orders, interpretation of diagnostic studies, discussion with consultants, patient, and/or family members regarding treatment decisions, as well as other required patient management activities. This time is exclusive of all separately billable procedures, and teaching time and separate from and in addition to any other critical care service time. (1) Sepsis Sepsis acute organ dysfunction status: unspecified Sepsis type: sepsis due to unspecified organism Qualified Code(s): A41.9 - Sepsis, unspecified organism
[2019-09-27] MEDS: cefTRIAXone SODIUM 2,000 MG in DEXTROSE 5% 50 ML IV SCH (10:06)
--- NOTE | 2019-09-27 10:22 | XRay Report ---
XR KUB/Abdomen 1 view CLINICAL HISTORY: coresafe placement tube position COMPARISON STUDY: No previous studies for comparison. FINDINGS: Interval removal of the prior nasogastric tube. Placement of feeding tube mid stomach. IMPRESSION: Feeding tube placed in the mid stomach. ACT 112: Negative or not required by law. The above report was generated using voice recognition software. It may contain grammatical, syntax or spelling errors. Electronically signed by: Haim Bal M.D. 09/27/2019 10:21 AM
--- NOTE | 2019-09-27 10:41 | XRay Report ---
XR KUB/Abdomen 1 view CLINICAL HISTORY: coresafe s/p extubation COMPARISON STUDY: 09/27/2019 FINDINGS: Feeding tube remains within the mid to distal stomach. IMPRESSION: Feeding tube remains within the mid to distal stomach. ACT 112: Negative or not required by law. The above report was generated using voice recognition software. It may contain grammatical, syntax or spelling errors. Electronically signed by: Haim Bal M.D. 09/27/2019 10:40 AM
--- NOTE | 2019-09-27 11:03 | Ultrasound Report ---
ULTRASOUND BILATERAL UPPER EXTREMITY VENOUS CLINICAL HISTORY: Fever. Clinical concern for deep venous thrombosis. COMPARISON STUDY: No priors. TECHNIQUE: Real-time, grayscale, and color Doppler sonography of the deep veins of the right and left upper extremity is performed. Compression and augmentation were utilized. FINDINGS: There is no sonographic evidence of deep venous thrombosis identified in the right or left upper extremity. The internal jugular, axillary, and brachial veins are patent and normally compressi ble bilateral. Normal venous waveforms and augmentation are seen within the subclavian veins. The cep halic and basilic veins are clear in both arm. The visualized radial and ulnar veins are patent bilat erally. IMPRESSION: There is no sonographic evidence of deep venous thrombosis identified in the right or lef t upper extremity. ACT 112: Negative or not required by law. Electronically signed by: Ryan Helms M.D. 09/27/2019 11:01 AM
[2019-09-27 11:59] LABS: BUN Creatinine Ratio 32.6 (10-20); Calcium 10.5 mg/dl (8.5-10.1); Creatinine Clr Calc Pharmacy 85.9 ml/min; Est GFR (African American) 99.2; Est GFR (Non-African American) 85.6; Magnesium 2.4 mg/dl (1.8-2.4)
[2019-09-27 12:37] LABS: Potassium 3.5 mmol/L (3.5-5.1)
[2019-09-27] MEDS: INSULIN REGULAR 250 UNITS in SODIUM CHLORIDE 0.9% 247.5 ML IV SCH (13:03)
[2019-09-27] MEDS: PEPTAMEN 1.5 CAL 1,000 ML BAG NG SCH (13:22)
--- NOTE | 2019-09-27 14:38 | Pharmacy Report ---
Pharmacy Glycemic Short Note 2 - Date of Service September 27, 2019 - Glycemic Short BSG Results (Last 24 hours): 09/26/19 09/26/19 09/26/19 14:41 15:34 16:02 Glucose 233 H POC Glucose 254 H 240 H 09/26/19 09/26/19 09/26/19 16:28 17:25 17:26 Glucose POC Glucose 232 H 283 H 262 H 09/26/19 09/26/19 09/26/19 18:34 19:35 20:40 Glucose POC Glucose 263 H 249 H 231 H 09/26/19 09/26/19 09/27/19 21:34 22:32 00:30 Glucose POC Glucose 218 H 202 H 175 H 09/27/19 09/27/19 09/27/19 02:29 04:16 04:26 Glucose 202 H POC Glucose 176 H 209 H 09/27/19 09/27/19 09/27/19 05:31 06:24 07:28 Glucose POC Glucose 197 H 230 H 258 H 09/27/19 09/27/19 09/27/19 08:34 09:27 10:33 Glucose POC Glucose 260 H 259 H 223 H 09/27/19 09/27/19 09/27/19 11:01 11:29 13:05 Glucose 187 H POC Glucose 185 H 135 H 09/27/19 13:58 Glucose POC Glucose 136 H OUTPATIENT ANTIDIABETIC REGIMEN: Outpatient Anti-diabetic Regimen: * Novolin 70/30 - 18 units BIDM * A1c pending for tomorrow Risk Factors for Insulin Resistance: * Infection: cefepime + daptomycin * Recent Surgery: POD #2 s/p cystoscopy with bilateral ureteral stent insertion * Diet: clear liquid ASSESSMENT: 09/26 * Patient continues on insulin infusion, currently running at 6.2 units/hr * Coresafe placed prior to extubation; BSGs have come down but may trend up again with re-initiation of tube feeds therefore will continue insulin infusion at this time, lantus BID ordered to help with future transition 09/25 * Patient was well controlled yesterday, but BSGs began trending upward overnight, lunch BSG 314 despite increased AM lantus and tightened carb coverage, TF formula also switched to higher carb content formula, therefore will begin an insulin infusion 09/23 * BSGs reasonably controlled over the last 24 hours, receiving 21 units of insulin total (15 basal, 6 units of bolus). BSG did spike yesterday afternoon after a hypoxic event that led to intubation and ICU transfer and was likely in part, a stress response. Fasting BSG was slightly high this morning and Lantus scale was adjusted accordingly. The patient has been NPO but was initiated on Tube feeds and likely will reach goal tomorrow, if tolerating. Plan: * Continue IV insulin infusion per moderate stress protocol * Goal Range 110-180 mg/dl * In the critical care setting, continuous IV insulin infusion has been shown to be the best method for achieving glycemic targets. * Lantus 10 units BID * Please note that the plan above was derived based on current level of insulin resistance and hospital stress. These recommendations are appropriate for inpatient admission only. Plan of care upon discharge will need to be reassessed to avoid potential outpatient hypo/hyperglycemia. Thank you.
--- NOTE | 2019-09-27 14:52 | Palliative Care Progress Note ---
Date of Service September 27, 2019 Assessment & Plan (1) Goals of care, counseling/discussion: This is a 63 year old female who presented to the [facility] from home after she started to have altered mental status. Per her son, he states that she has been declining over the past few weeks. Additionally, she was having abdominal pain and loose bowel movements. A cystoscopy was performed on September 21 and ureteral stones were discovered s/p bilateral ureteral stent placement. Pus was noted coming from the left kidney, right kidney drained clear urine. Subsequently, she became septic and started to have signs of acute respiratory failure and was intubated on September 22. There is also questionable volume overload as contributing factors to her decline. She remains intubated and failed her spontaneous breathing trial on September 23. Patient was extubated today, 09/26 at approximately 10:20 AM-saturations adequate on O2 at 6 L via oxy mask. Patient's ammonia level peaked at 110.9-was back down to 49 this a.m. after receiving several doses of lactulose-mental status has not improved. Lyn ent continues to run a fever at 101.1, white count is starting to increase. Additional PMH includes: A-fib, pancreatic CA s/p Whipple procedure-1993, recurrent hospitalizations for pancreatitis, status post pacemaker, HTN, CAD, CVA, status post clipping of brain aneurysms-1998 and others. Urine grew out 3 organisms-group B strep, Klebsiella and E. coli -Patient seen and examined this afternoon, no family at bedside. Nursing reports they have been in earlier today soon after extubation. Collaborated with attending physician Dr. Muro. -Patient galdamez not respond to voice or touch on exam today -CODE STATUS changed to DNR on 09/25- does not want patient reintubated -Patient's mental status has not improved despite improvement in her ammonia level and adequate IV antibiotic coverage for her pyelonephritis -Attempted to reach by phone, to provide support and further discuss his wishes if patient's mental status does not improve in the next 24 hours. -Patient would not be a candidate for PEG tube as she has had a prior Whipple procedure -Patient has 2 sons that live locally, 9 grandchildren and also some great- grandchildren. - reported that he lost his mother and his sister over the past year here at [place] -Will continue to follow and assist family with medical decision making and provide emotional support to and sons (2) H/O pancreatic cancer: (3) Pacemaker: (4) Acute hypoxemic respiratory failure: (5) Kidney stone: Subjective Patient seen and examined this afternoon, no family at bedside. Attempted to call at [phone], no answer, went to voicemail. Patient extubated this a.m. at 1020, stated he did not want patient reintubated. Patient currently doing well on 6 L of O2 via oxy mask with sats of 92% Patient's ammonia level has improved to 49-patient's mental status is unchanged. Review of Systems Review of Systems: Unobtainable due to cognitive status Physical Exam Physical Exam: PE: Patient now extubated, on 6 L via oxy mask HEENT: Eyes open, did not blink to confrontation Respirations: Unlabored, diminished breath sounds at bases CV: Regular rate Abdomen: Not distended Extremities: Frequent choreiform movements noted Neuro: Does not respond to voice or touch, no blink to confrontation, No noted purposeful movement. Results & Data Vital Signs (Past 12 Hours) Vital Signs Temp Pulse Resp BP Pulse Ox 09/27/19 14:00 101.1 F H 73 93 09/27/19 13:53 101.1 F H 72 149/72 H 93 09/27/19 13:00 100.8 F H 75 93 09/27/19 12:53 100.8 F H 75 135/81 94 09/27/19 12:00 100.6 F H 86 93 09/27/19 11:53 100.6 F H 81 141/76 H 92 09/27/19 11:00 100.8 F H 74 90 09/27/19 10:53 100.8 F H 80 142/74 H 90 09/27/19 10:13 74 28 H 94 09/27/19 10:04 101.1 F H 72 149/77 H 95 09/27/19 10:00 101.1 F H 71 94 09/27/19 09:35 27 H 94 09/27/19 09:10 100.9 F H 70 138/87 87 L 09/27/19 09:00 100.9 F H 72 89 L 09/27/19 08:55 100.9 F H 72 138/87 92 09/27/19 08:00 100.6 F H 70 92 09/27/19 07:53 100.6 F H 70 106/95 92 09/27/19 07:18 72 26 H 94 09/27/19 07:00 75 94 09/27/19 06:00 74 94 09/27/19 05:54 71 142/117 H 94 09/27/19 05:00 100.9 F H 74 94 09/27/19 04:54 72 132/104 H 95 09/27/19 04:00 70 93 09/27/19 03:53 70 127/78 94 09/27/19 03:42 71 23 93 09/27/19 03:00 74 93 09/27/19 02:54 71 154/76 H 93 PG Care Time/CCT Total # of Minutes Spent Total Time Spent with Patient: Total time spent 35 minutes assessing patient's current status, collaborating with attending physician on the unit as well as attempting to contact . Coding Level of Care Code 41136 Subseq Hosp Care Lvl 3 Diagnoses Goals of care, counseling/discussion Z71.89 H/O pancreatic cancer Z85.07 Pacemaker Z95.0 Acute hypoxemic respiratory failure J96.01 Kidney stone N20.0 Time Spent (min) 35
--- NOTE | 2019-09-27 15:43 | CT Scan Report ---
CT head/brain wo con CLINICAL HISTORY: Abnormal neurological examination. Suspected stroke. COMPARISON STUDY: Noncontrast head CT dated 09/25/2019 TECHNIQUE: Axial CT of the brain is performed from the vertex to the skull base. IV contrast was not administered for this examination. A dose lowering technique was utilized adhering to the principles of ALARA. CT DOSE: 537.48 mGy.cm FINDINGS: There are postsurgical changes of a right frontotemporal craniotomy and right temporal fossa aneurysm clipping. There is no CT evidence of acute cortical infarction. There is no evidence of midline shif t. There is no evidence of acute hemorrhage. There is chronic right frontal lobe encephalomalacia. There are patchy white matter hypodensities likely on a small vessel basis. There is no evidence of pathologic ventricular dilatation. There is no evidence of acute sinusitis IMPRESSION: No acute intracranial findings ACT 112: Negative or not required by law. Electronically signed by: Luis Davis M.D. 09/27/2019 3:42 PM
[2019-09-27] MEDS: PRAVASTATIN SOD 20 MG TAB PO SCH (16:47)
[2019-09-27] MEDS: ACETAMINOPHEN SOLN 650 MG/20.3 ML UDC NG PRN (16:51)
[2019-09-27 19:33] LABS: Calcium 10.3 mg/dl (8.5-10.1); Creatinine Clr Calc Pharmacy 97.8 ml/min; Est GFR (African American) 108.7; Est GFR (Non-African American) 93.8; Magnesium 1.9 mg/dl (1.8-2.4); Potassium 3.1 mmol/L (3.5-5.1)
[2019-09-27] MEDS: CITALOPRAM 20 MG TAB PO SCH (21:02)
[2019-09-27] MEDS: APIXABAN 5 MG TABLET PO SCH (21:03)
--- NOTE | 2019-09-27 22:40 | Hospitalist Progress Note ---
Date of Service September 27, 2019 Assessment & Plan (1) Acute hypoxemic respiratory failure: repeat CXR on 09/22 with pulmonary edema but also worsening infiltrates she had a non-productive cough prior to intubation differential would be pneumonia, pulmonary edema (cardiogenic vs non- cardiogenic) ABG with respiratory alkalosis, metabolic acidosis intubated afternoon of 09/22, management per ICU staff still on ventilator, tolerating CPAP today no response off of sedation, has encephalopathy not safe to extubate at this time CT head normal (2) Gram-negative bacteremia: due to UTI, urine culture with E coli and Klebsiella, mandujano sensitive blood cultures with E coli, Klebsiella, group B strep de-escalate antibiotics to Rocephin tmax 38.4 in past 24 hours, WBC up to 12 k -Repeat blood culture: No growth to date (3) Sepsis: sepsis due to complicated UTI with ureteral stones urine culture with E coli and Klebsiella blood cultures with E coli, Klebsiella, group B strep changed to Rocephin procalcitonin 50 on admission, repeat down to 19 the next day no evidence of shock, BP preserved however, this would constitute severe sepsis as she has organ failure with CAROLA and hypoxic respiratory failure lactic acid normal 09/22, checked twice repeat blood cultures with no growth thus far (4) Acute kidney injury: Patient is acute kidney injury with creatinine of 2.29, creatinine on July 2018 was 0.66. due to dehydration and sepsis aggressive IV hydration provided making adequate urine, Cr improved to 0.78 today, stable K low , hypernatremia, low phosphorus tube feeds initiated, lowering amount of protein due to elevated ammonia, increasing free water for hypernatremia (5) A-fib: holding anticoagulation as she cannot swallow, she had some hematuria initiate rate control echo with preserved EF (6) Diabetes: Patient typically takes 70/30 insulin 18 units twice daily this will be changed to basal bolus monitor for hypoglycemia, ICU protocol (7) H/O pancreatic cancer: Patient typically takes Creon there is pancreatic inflammation seen on intake CT scan, admission lipase is low (8) Depression with anxiety: Patient is on Celexa, Topamax and trazodone at home now with altered mental status Propofol off, using PRN Fentanyl CT head without acute changes (9) Stroke: Patient has history of cerebral aneurysm clipping in 1998 associated stroke. Patient takes antiplatelets of aspirin and pravastatin (10) DVT prophylaxis: scd /heparinfor dvt prevention (11) Metabolic encephalopathy: likely due to infection, elevated ammonia treating ammonia with Lactulose TID CT head normal MRI brain cannot be done due to metal clips from aneurysm in 1998 (12) Increased ammonia level: likely from liver congestion treat with Lactulose TID, had large BM this morning (13) Hypernatremia: will give free water flushes through OG tube (14) Hypokalemia: ICU replacement protocol (15) Goals of care, counseling/discussion: Dr. Olivia and Dr. Muro met with patient's this afternoon code status changed to DNR he understands prognosis is guarded, will continue to treat and look for improvements he is aware that he may need to make a difficult decision in coming days if status does not improve Admission and Anticipated Discharge Date Admission Date: September 22, 2019 Subjective Patient remains intubated Review of Systems Review of Systems: Unobtainable due to endotracheal tube Physical Exam Physical Exam: Constitutional: + mechanically ventilated Eyes: PERRL, conjunctivae normal, anicteric sclerae ENMT: external ear and nose normal, oropharynx normal Neck: trachea midline, no thyromegaly Respiratory: normal respiratory effort and symmetric chest movement Auscultation: no crackles, no rales, no rhonchi and no wheezes Cardiovascular: Rate/Rhythm: regular rate and regular rhythm Heart Sounds: normal S1 and normal S2; no murmur Vessels: no JVD Extremities: normal capillary refill; no edema Gastrointestinal (Abdomen): normal bowel sounds, soft, nontender, no hepatosplenomegaly Musculoskeletal: no cyanosis or clubbing, extremities motor strength 5/5 Head/Neck/Chest: normocephalic, head atraumatic and neck supple Extremities: no cyanosis and no clubbing Skin: no rashes, warm and dry Neurologic: no focal motor deficits Psychiatric: Orientation: + not alert, + not oriented to person, + not oriented to place and + not oriented to time Lymphatic: no cervical or axillary lymphadenopathy Results & Data Results & Data ([facility]) Vital Signs (Past 12 Hours) Vital Signs Temp Pulse BP Pulse Ox 09/27/19 21:54 37.7 C H 71 136/79 91 09/27/19 20:54 37.6 C H 70 127/69 89 L 09/27/19 19:54 37.9 C H 70 143/69 H 91 07/10/20 14:00 38.4 C H 73 93 09/27/19 13:53 38.4 C H 72 149/72 H 93 09/27/19 13:00 38.2 C H 75 93 09/27/19 12:53 38.2 C H 75 135/81 94 09/27/19 12:00 38.1 C H 86 93 09/27/19 11:53 38.1 C H 81 141/76 H 92 09/27/19 11:00 38.2 C H 74 90 09/27/19 10:53 38.2 C H 80 142/74 H 90 PG Care Time/CCT Total # of Minutes Spent Total Time Spent with Patient: Total time spent is greater than 50% in coordination of care (as documented) at patient's floor/unit and/or counseling patient: Coding Level of Care Code 08460 Subseq Hosp Care Lvl 3 Diagnoses Acute hypoxemic respiratory failure J96.01 Gram-negative bacteremia R78.81 Sepsis A41.9 Acute kidney injury N17.9 A-fib I48.2 Atrial fibrillation type: chronic Diabetes E11.9; Z79.4 Diabetes mellitus complication status: without complication Diabetes mellitus alf insulin use: with intermediate designer use Diabetes mellitus type: type 2 H/O pancreatic cancer Z85.07 Depression with anxiety F41.8 Stroke I63.9 DVT prophylaxis Z29.9 Metabolic encephalopathy G93.41 Increased ammonia level R79.89 Hypernatremia E87.0 Hypokalemia E87.6 Goals of care, counseling/discussion Z71.89 Time Spent (min) 35 Comment chart review (1) Diabetes Diabetes mellitus complication status: without complication Diabetes mellitus intermediate designer insulin use: with alf use Diabetes mellitus type: type 2 Qualified Code(s): E11.9 - Type 2 diabetes mellitus without complications; Z79.4 - intermediate manager (current) use of insulin (2) A-fib Atrial fibrillation type: chronic Qualified Code(s): I48.2 - Chronic atrial fibrillation
[2019-09-28] MEDS: ACETAMINOPHEN SOLN 650 MG/20.3 ML UDC NG PRN (00:40)
[2019-09-28] MEDS: TUBE FEEDING WATER FLUSH OG SCH ×4 (03:37→12:03)
[2019-09-28] MEDS: INSULIN ASPART 100 UNITS/ML 3 ML PEN SC SCH ×2 (03:38→07:38)
[2019-09-28 03:58] LABS: Hematocrit (blood only) 30.7 % (37-47); Hemoglobin 9.5 g/dL (12.0-16.0); Mean Corpuscular Hemoglobin 30.2 pg (25-34); Mean Corpuscular Hgb Conc 30.9 g/dL (32-36); Mean Corpuscular Volume 97.5 fL (80-100); Mean Platelet Volume 11.4 fL (7.4-10.4); Nucleated RBC # (auto) 0.11 K/uL (0-0); Nucleated RBC % (auto) 0.6 %; Platelet Count 201 K/uL (130-400); RDW Standard Deviation 59.8 fL (36.4-46.3); Red Blood Count 3.15 M/uL (4.2-5.4); White Blood Count 18.26 K/uL (4.8-10.8)
[2019-09-28 04:30] LABS: Basophils # (auto) 0.03 K/uL (0-0.2); Basophils % (auto) 0.2 %; Eosinophils # (auto) 0.27 K/uL (0-0.5); Eosinophils % (auto) 1.5 %; Immature Granulocytes # (auto) 0.34 K/uL (0.00-0.02); Immature Granulocytes % (auto) 1.9 %; Lymphocytes # (auto) 2.37 K/uL (1.2-3.4); Monocytes # (auto) 0.92 K/uL (0.11-0.59); Neutrophils # (auto) 14.33 K/uL (1.4-6.5); Neutrophils % (auto) 78.4 %
[2019-09-28 04:40] LABS: Albumin Level 1.6 gm/dl (3.4-5.0); BUN Creatinine Ratio 29.7 (10-20); Bilirubin Direct 0.4 mg/dl (0-0.2); Bilirubin,Total 0.7 mg/dl (0.2-1); Calcium 10.7 mg/dl (8.5-10.1); Creatinine Clr Calc Pharmacy 99.3 ml/min; Est GFR (African American) 109.3; Est GFR (Non-African American) 94.3; Magnesium 1.8 mg/dl (1.8-2.4); Phosphorus 1.1 mg/dl (2.5-4.9); Potassium 3.2 mmol/L (3.5-5.1); Total Protein 5.8 gm/dl (6.4-8.2)
[2019-09-28] MEDS ORDERED: POTASSIUM PHOS 3 MMOL/1 ML INFUSION IV STA (04:44)
[2019-09-28] MEDS: MAGNESIUM SULFATE / D5W 1 GM/100 ML BAG IV SCH ×2 (04:56→06:07)
[2019-09-28] MEDS ORDERED: POTASSIUM CHLORIDE 20 MEQ/15 ML UDC PO ONE (05:00)
[2019-09-28] MEDS ORDERED: POTASSIUM PHOSPHATE 30 MMOL in DEXTROSE 5% 500 ML IV ONE (05:30)
[2019-09-28] MEDS: INSULIN GLARGINE SOLOSTAR 100 UNITS/ML 3 ML PEN SC SCH (07:38)
[2019-09-28 07:40] LABS: iSTAT Allen Test Pass; iSTAT Arterial Blood Gas HCO3 26 meg/L (19-24); iSTAT Arterial Blood Gas pCO2 54 mmHg (35-46); iSTAT Arterial Blood Gas pH 7.29 (7.35-7.45); iSTAT Arterial Blood Gas pO2 69 mmHg (80-95); iSTAT Carbon Dioxide 27 mmol/L (24-31); iSTAT FiO2 100 %; iSTAT Site L Radial
--- NOTE | 2019-09-28 08:02 | XRay Report ---
SINGLE VIEW CHEST CLINICAL HISTORY: Hypoxia. FINDINGS: An AP, portable, semierect chest radiograph is compared to study dated 09/26/2019. Correlatio n is made with chest CT dated 06/27/2017. The examination is degraded by portable technique and patien t rotation. An enteric tube projects below the diaphragm. The tip is not visualized. The endotracheal tube has been removed. A 2-lead cardiac pacemaker is unchanged in position. The cardiomediastinal si lhouette cannot be assessed. There is near complete opacification of the left hemithorax consistent w ith atelectasis/consolidation and pleural effusion. There is leftward shift of mediastinum and compen satory hyperinflation of the right lung. The pulmonary vasculature appears mildly congested. Atelecta sis is noted at the right lung base. No pneumothorax is seen. The skeletal structures are osteopenic. The bony thorax is grossly intact. IMPRESSION: 1. The endotracheal tube has been removed. 2. There is near complete opacification of the left hemithorax which represents a significant change from 09/26/2019. This indicates significant atelectasis, as well as consolidation and pleural effusion. 3. There is associated leftward shift of the mediastinum. 4. Cardiomegaly and cardiac pacemaker. The pulmonary vasculature appears congested. ACT 112: Negative or not required by law. Electronically signed by: Ryan Helms M.D. 09/28/2019 8:01 AM
[2019-09-28] MEDS ORDERED: MoRPHine SULF/NSS 1 MG/ML 250 ML BTL IV ONE (08:09)
[2019-09-28] MEDS ORDERED: ONDANSETRON 4 MG OD TAB SL PRN ×2 (08:11→16:45)
[2019-09-28] MEDS ORDERED: ATROPINE SULFATE 1% OP SOLN 2 ML BTL SL PRN (08:11)
[2019-09-28] MEDS ORDERED: ONDANSETRON INJ 2 MG/ML 2 ML VIAL IV PRN ×2 (08:11→16:45)
[2019-09-28] MEDS ORDERED: GLYCOPYRROLATE 0.2 MG/ML VIAL IV PRN ×2 (08:11→16:45)
--- NOTE | 2019-09-28 08:44 | Critical Care Progress Note ---
Date of Service September 28, 2019 Assessment & Plan (1) Goals of care, counseling/discussion: Patient had hypoxic respiratory decompensation and exhibited agonal breathing, she was extubated yesterday and had been maintaining oxygen saturation with OFM throughout the night. chest x-ray revealed that the left lung field is po out, and a likely large mucous plug. Family called to the bedside as patient had previously been made DNR/DNI, and palliative following. Goals of care and treatment options were discussed and in conclusion family opted to transition the patient to comfort care, and is aware that she will likely . Versed and Dilaudid pushes have been ordered and comfort care orders placed. Meds discontinued. Will discontinue BiPAP once family has had a chance to see her at the bedside as she will likely shortly after it is removed given the severity of her hypoxia. CRITICAL CARE TIME - I have personally spent 40 minutes of critical care time in the direct management of this patient. This is a life/limb threatening event. This includes time spent evaluating patient, direct bedside care, chart review, placing orders, interpretation of diagnostic studies, discussion with consultants, patient, and family members, as well as other required patient management activities. This time is exclusive of all separately billable procedures, and teaching time and separate from and in addition to any other critical care service time. (2) Acute hypoxemic respiratory failure: (3) Gram-negative bacteremia: (4) Metabolic encephalopathy: (5) Increased ammonia level: (6) Hypernatremia: (7) Hypokalemia: (8) Sepsis: (9) CAROLA (acute kidney injury): (10) Acute UTI: (11) Hydroureteronephrosis: (12) Kidney stone: (13) Pancreatitis, recurrent: (14) H/O pancreatic cancer: (15) Depression with anxiety: (16) Pacemaker: (17) C. difficile colitis: (18) Stroke: Admission and Anticipated Discharge Date Admission Date: September 22, 2019 Supervising Physician Co-Signing Physician Notes Care was transitioned to myself at 8:00, answered family/ questions, we currently we are waiting for some additional family members to arrive and then will proceed with discontinuation of non-invasive mechanical ventilation and focus solely on comfort measures with expectant management. Subjective Patient's mental status had not improved but she was able to maintain her airway throughout the night. However, at approximately 07 100 this morning the patient rapidly decompensated from the pulmonary standpoint and became severely hypoxic with agonal labored breathing. She was placed on BiPAP and stabilized, ABG showed mild hypercapnia and severe hypoxia as she was on 100% FiO2 at the time. Chest x-ray revealed that the left lung field was po out. Palliative had previously been consulted, and patient had been made DNR/DNI prior to this event. Family was contacted and came to the bedside. Patient's had previously stated that he would not want the patient intubated under any circumstances, and reiterated that at the bedside. Plans for treatment was discussed including bronchoscopy versus comfort care approach. Ultimately, patient's family has expressed that they would not want her to suffer. In conclusion to our conversation, we are transitioning goals of care to comfort care at this time, knowing that the patient will likely . The patient does have a large family, and will attempt to allow family to visit at the bedside prior to withdrawal. Will keep in ICU for now, however, if patient does not this a.m., will likely transfer to palliative unit. Review of Systems Review of Systems: Unobtainable due to cognitive status Physical Exam Constitutional: + ill appearing Obtunded Eyes: PERRL, conjunctivae normal, anicteric sclerae ENMT: external ear and nose normal, oropharynx normal Neck: trachea midline, no thyromegaly Respiratory: Right lung clear to auscultation, left lung diminished in all izquierdo. Patient displays labored/agonal breathing. Abnormal respiratory effort. Symmetrical chest wall movement Cardiovascular: Paced rhythm, no JVD, no edema. Gastrointestinal (Abdomen): Abdomen soft, nondistended, bowel sounds normal Skin: no rashes, warm and dry Neurologic: Obtunded, cough gag corneal intact, does respond to painful stimuli and moves all extremities but does not follow commands Psychiatric: Obtunded Genitourinary: Indwelling Schaffer catheter Results & Data Results & Data ([facility]) Vital Signs (Past 12 Hours) Vital Signs Temp Pulse Resp BP Pulse Ox 09/28/19 07:00 71 26 H 93 09/28/19 06:11 37.6 C H 83 167/90 H 92 09/28/19 04:55 37.5 C 70 148/59 H 94 09/28/19 03:54 37.6 C H 70 26 H 134/70 92 09/28/19 02:54 37.7 C H 70 20 149/79 H 92 09/28/19 01:54 37.8 C H 73 24 137/69 93 09/28/19 00:54 38.0 C H 72 123/72 92 09/27/19 23:54 37.9 C H 74 24 126/74 94 09/27/19 22:54 37.8 C H 71 152/75 H 90 09/27/19 21:54 37.7 C H 71 136/79 91 09/27/19 20:54 37.6 C H 70 127/69 89 L Coding Level of Care Code Critical Care 1st 30-74 mins Diagnoses Goals of care, counseling/discussion Z71.89 Acute hypoxemic respiratory failure J96.01 Gram-negative bacteremia R78.81 Metabolic encephalopathy G93.41 Increased ammonia level R79.89 Hypernatremia E87.0 Hypokalemia E87.6 Sepsis A41.9 Sepsis acute organ dysfunction status: unspecified Sepsis type: sepsis due to unspecified organism CAROLA (acute kidney injury) N17.9 Acute UTI N39.0 Hydroureteronephrosis N13.30 Kidney stone N20.0 Pancreatitis, recurrent K86.1 H/O pancreatic cancer Z85.07 Depression with anxiety F41.8 Pacemaker Z95.0 C. difficile colitis A04.72 Stroke I63.9 (1) Sepsis Sepsis acute organ dysfunction status: unspecified Sepsis type: sepsis due to unspecified organism Qualified Code(s): A41.9 - Sepsis, unspecified organism
[2019-09-28] MEDS: APIXABAN 5 MG TABLET PO SCH (09:23)
[2019-09-28] MEDS: MAGNESIUM OXIDE 400 MG TAB PO SCH (09:23)
[2019-09-28] MEDS: LACTULOSE SYRUP 30 GM/45 ML UDP PO SCH ×2 (09:23→12:03)
[2019-09-28] MEDS: levOCARNitine (with sugar) 100 MG/ML SOLUTION PO SCH ×2 (09:23→12:02)
[2019-09-28] MEDS: cefTRIAXone SODIUM 2,000 MG in DEXTROSE 5% 50 ML IV SCH (09:30)
[2019-09-28] MEDS: THIAMINE HCL 100 MG TAB PO SCH (09:30)
[2019-09-28] MEDS: FAMOTIDINE 20 MG in SYRINGE 3 ML IV SCH (09:30)
[2019-09-28] MEDS: NYSTATIN CR 15 GM TUBE EXT SCH ×2 (09:32→12:03)
[2019-09-28] MEDS: HYDROmorphone INJ 1 MG/ML SYRINGE IV PRN ×4 (11:49→22:03)
[2019-09-28] MEDS ORDERED: haloperidoL 1 MG TAB PO PRN ×2 (16:45)
[2019-09-28] MEDS ORDERED: HYOSCYAMINE SULFATE 0.125 MG TAB SL PRN (16:45)
[2019-09-28] MEDS ORDERED: PROMETHAZINE HCL 12.5 MG in SODIUM CHLORIDE 0.9% 50 ML IV PRN (16:45)
--- NOTE | 2019-09-28 17:49 | Hospitalist Progress Note ---
Date of Service September 28, 2019 Assessment & Plan (1) Goals of care, counseling/discussion: Family meeting with Dr Muro this morning. Severe hypoxia this morning with complete whiteout of left lung. Given poor prognosis and wish for no further intubation/bronchoscopy patient was made for comfort care after probable mucus plug causing complete left lung collapse this morning. Mucus plug probably somewhat relieved with BiPAP as she is saturating better than before on nasal cannula. However given reduced consciousness even yesterday while O2 sats were good this is likely to reoccur. Palliative have been involved sine 8th due to severity of UTI sepsis and lack of improvement in mental status since then. Family requested pacemaker to be turned off Comfort care - will avoid ativan due to prior allergy of a rash for comfort Morphine for dyspnea - comfortable when seen (2) Acute hypoxemic respiratory failure: (3) Gram-negative bacteremia: (4) Sepsis: (5) Acute kidney injury: (6) A-fib: (7) Diabetes: (8) H/O pancreatic cancer: (9) Depression with anxiety: (10) Stroke: (11) Metabolic encephalopathy: (12) Increased ammonia level: (13) Hypernatremia: (14) Hypokalemia: (15) DVT prophylaxis: Admission and Anticipated Discharge Date Admission Date: September 22, 2019 Subjective Patient seen with family at bedside once transferred to [facility]. Not involved in family discussion to go for comfort care this morning and this is the first time meeting the patient but on review of chart I agree with the plan for comfort care. She is unconscious at this time. Does not appear to be in any distress. Occasional arm movements noted by family but no significant agitation. No gurgling present. No ICD on CXR. Pacemaker placed for a. fib as per family. Discussed no definitive need to turn this off but can place a magnet over pacemaker by family request. Review of Systems Review of Systems: Unobtainable due to reduced consciousness Physical Exam Constitutional: no acute distress Obtunded Respiratory: + retractions; + abnormal respiratory effort Neurologic: + not awake Results & Data Results & Data ([facility]) Vital Signs (Past 12 Hours) Vital Signs Temp Pulse Resp BP Pulse Ox 09/28/19 13:00 37.7 C H 70 24 102/58 L 88 L 09/28/19 12:00 37.7 C H 70 12 93/55 L 85 L 09/28/19 11:00 37.5 C 73 12 120/69 95 09/28/19 10:00 37.4 C 74 10 L 123/72 83 L 09/28/19 09:54 37.4 C 74 10 L 121/75 85 L 09/28/19 08:00 37.4 C 70 12 101/62 93 09/28/19 07:00 37.6 C H 71 26 H 98/51 L 88 L 09/28/19 06:54 37.6 C H 77 26 H 135/76 61 L 09/28/19 06:11 37.6 C H 83 167/90 H 92 PG Care Time/CCT Total # of Minutes Spent Total Time Spent with Patient: Total time spent is greater than 50% in coordination of care (as documented) at patient's floor/unit and/or counseling patient: Coding Level of Care Code 68811 Subseq Hosp Care Lvl 2 Diagnoses Goals of care, counseling/discussion Z71.89 Acute hypoxemic respiratory failure J96.01 Gram-negative bacteremia R78.81 Sepsis A41.9 Acute kidney injury N17.9 A-fib I48.2 Atrial fibrillation type: chronic Diabetes E11.9; Z79.4 Diabetes mellitus complication status: without complication Diabetes mellitus mcfp insulin use: with exterminator helper use Diabetes mellitus type: type 2 H/O pancreatic cancer Z85.07 Depression with anxiety F41.8 Stroke I63.9 Metabolic encephalopathy G93.41 Increased ammonia level R79.89 Hypernatremia E87.0 Hypokalemia E87.6 DVT prophylaxis Z29.9 (1) Diabetes Diabetes mellitus complication status: without complication Diabetes mellitus exterminator helper insulin use: with mcfp use Diabetes mellitus type: type 2 Qualified Code(s): E11.9 - Type 2 diabetes mellitus without complications; Z79.4 - correction (current) use of insulin (2) A-fib Atrial fibrillation type: chronic Qualified Code(s): I48.2 - Chronic atrial fibrillation
[2019-09-29] MEDS: HYDROmorphone INJ 1 MG/ML SYRINGE IV PRN ×4 (01:21→10:18)
[2019-09-29] MEDS: ATROPINE SULFATE 1% OP SOLN 2 ML BTL SL PRN ×2 (06:17→10:44)
[2019-09-29] MEDS ORDERED: SCOPOLAMINE 1.5 MG TDSY TD SCH (09:00)
--- NOTE | 2019-09-29 12:19 | Discharge Summary ---
Date of Service date of admission - September 22, 2019 date of - September 29, 2019 Admission HPI Per Admitting Provider 63-year-old female presents to the emergency department for altered mental status via EMS. Per EMS, the patient was picked up at her home for altered mental status. Patient son is arrived and says the patient been feeling poorly for a few days she is not taken any of her Eliquis or Creon for 1 week because they ran out of those prescriptions. Patient is mostly complaining of abdominal pain having some frequent loose bowel movements. Patient denies having any coughing, chest pain, or contact with ill people. In the emergency department she appears to be septic from a urinary source. Principal Diagnosis 1. acute hypoxic respiratory failure 2. septicemia 3. UTI 4. obstructing kidney stones Discharge Exam Patient pronounced at 1135 on 09/29/19. At time of patient's pupils were fixed and dilated; no audible heart tones or spontaneous breathing; no palpable pulse; no response to pain or voice. Discharge Data Allergies Allergy/AdvReac Type Severity Reaction Status Date / Time Iodinated Contrast Media Allergy Severe HIVES, Verified 09/22/19 11:[address] DYE iodine Allergy Severe airway Verified 09/22/19 11:39 swells shut amoxicillin Allergy Intermediate RASH Verified 09/22/19 11:39 ceftriaxone Allergy Intermediate RASH Verified 09/22/19 11:39 adhesive Allergy Mild RASH AND Verified 09/22/19 11:39 SORE SKIN FROM TAPE ADHESIVES azithromycin [From Zithromax] Allergy Mild Hives Verified 09/22/19 11:39 alcohol Allergy Unknown Unknown Verified 09/22/19 11:49 atorvastatin Allergy Unknown RASH Verified 09/22/19 11:39 Bactrim Allergy Unknown UNKNOWN Verified 07/24/17 06:56 isopropyl alcohol Allergy Unknown RASH Verified 09/22/19 11:39 lemon Allergy Unknown RASH Verified 09/22/19 11:39 lorazepam Allergy Unknown RASH Verified 09/22/19 11:39 morphine Allergy Unknown stops heart Verified 09/22/19 11:39 rosuvastatin Allergy Unknown RASH Verified 09/22/19 11:39 shellfish derived Allergy Unknown AIRWAY Verified 09/22/19 11:39 SHUTS sulfamethoxazole Allergy Unknown UNKNOWN Verified 09/22/19 11:39 trimethoprim Allergy Unknown UNKNOWN Verified 09/22/19 11:39 latex Allergy Rash Verified 09/22/19 11:39 metformin Allergy Unknown Verified 09/22/19 11:39 Cipro AdvReac Unknown INTERFERES Verified 07/24/17 06:56 WITH COUMADIN ciprofloxacin AdvReac Unknown INTERFERES Verified 09/22/19 11:39 WITH COUMADIN ezetimibe AdvReac Unknown RAPID Verified 09/22/19 11:39 HEART BEAT gemfibrozil AdvReac Unknown MYALGIAS Verified 09/22/19 11:39 lovastatin AdvReac Unknown MYALGIAS Verified 09/22/19 11:39 tramadol AdvReac Unknown CHEST Verified 09/22/19 11:39 TIGHTNESS Consultations Consult Urology Routine Consult Cinder Block Mason Consult Palliative Care Routine Procedures Performed Operation Date: 09/22/19 12:30 Actual Procedures p Cystoscopy, Bilateral Ureteral Stent Insertion(Bilateral) - Miguelangel Zarate MD Ordered Studies 09/22/19 09:44 CT cervical spine wo con Stat CT head/brain wo con Stat 09/22/19 09:47 CT abd pelvis wo con Stat 09/22/19 12:00 FL retrograde includes kub Routine 09/25/19 16:53 CT head/brain wo con Routine 09/27/19 09:40 US venous doppler UE BI Routine 09/27/19 14:46 CT head/brain wo con Routine Hospital Course (1) Septicemia: The patient was admitted due to concern for sepsis 2nd to UTI in the setting of b/l obstructing kidney stones. On hospital day #1 she was taken to the OR by [facility] Urology and b/l ureteral s tents were placed due to her kidney stones. Admission blood cultures ultimately grew group B strep, klebsiella, and e.coli. Admission urine culture grew e.coli and klebsiella. She was maintained on broad-spectrum IV antibiotics. Course was complicated by acute kidney injury (peak Cr was 2.2), metabolic encephalopathy, and acute hypoxic respiratory failure. On the AM of 09/23/19, due to worsening volume overload/third spacing in the setting of volume resuscitation for her septicemia, she was transferred to the ICU and intubated. She remained mechanically ventilated until the AM of 09/27/19 at which point she was extubated. During her ICU stay she also had markedly elevated ammonia levels which contributed to her poor mentation. Following extubation the patient continued to do poorly on a general scale. Multiple discussions were held between the palliative care team, critical care, the hospitalist team, and the patient's & family to define goals of care. Finally, on the AM of 09/28/19, the patient's respiratory status worsened with near white-out of her left lung on chest x-ray, possibly due to mucous plugging. BiPAP was initiated. On the afternoon of 09/28/19 a decision was made to de-escalate care and transition to a comfort care pathway in light of her poor prognosis. Antibiotics, non-invasive ventilation, etc were stopped at that time and patient was moved from ICU to the floor. At 1135am on 09/29/19 the patient passed peacefully in the presence of her family. (2) Acute respiratory failure with hypoxia: (3) Acute UTI: (4) CAROLA (acute kidney injury): (5) Urinary tract obstruction due to kidney stone: (6) Metabolic encephalopathy: (7) Pacemaker: (8) Pancreatitis, recurrent: (9) H/O pancreatic cancer: (10) Diabetic polyneuropathy: (11) Depression with anxiety: (12) Stroke: (13) Aneurysm: history of 1998 requiring clipping (14) Diabetes: (15) Increased ammonia level: (16) Hypernatremia: (17) Hypokalemia: Total Time Total Time Spent Total Time Spent (In Minutes): 25 Total Time Includes: Examination of the Patient Discharge Plan Discharge Items Patient Disposition: Reason For Visit: SEPSIS URINARY SOURCE Follow-up/Referrals: Michael Sepulveda [Primary Care Provider] - Stand-Alone Forms: [facility] Medications and DC Order Krames/Other Patient Handouts: Managing Type 2 Diabetes Admission Data Admit Date/Time: 09/22/19 13:36 Other DC Date/Time DO NOT enter until pt leaves facility: 09/29/19 15:29 Coding Level of Care Code D/C Day Management <30 mins Diagnoses Septicemia A41.9 Acute respiratory failure with hypoxia J96.01 Acute UTI N39.0 CAROLA (acute kidney injury) N17.9 Urinary tract obstruction due to kidney stone N20.0; N13.8 Metabolic encephalopathy G93.41 Pacemaker Z95.0 Pancreatitis, recurrent K86.1 H/O pancreatic cancer Z85.07 Diabetic polyneuropathy E11.42 Depression with anxiety F41.8 Stroke I63.9 Aneurysm I72.9 Diabetes E11.9; Z79.4 Diabetes mellitus type: type 2 Diabetes mellitus long distance operator insulin use: with residential use Diabetes mellitus complication status: without complication Increased ammonia level R79.89 Hypernatremia E87.0 Hypokalemia E87.6
--- NOTE | 2019-09-29 12:20 | Death Pronouncement Note ---
Date of Service September 29, 2019 Pronouncement Note Admission Date Admission Date: September 22, 2019 Date and Time of Date of : 09/29/19 Time of : 11:35 PCOD Preliminary cause of : Acute respiratory failure with hypoxia Contributing Factors (1) Gram-negative bacteremia: Contributing factors: septicemia 2nd to UTI as a result of obstructing kidney stones (2) Sepsis: (3) Acute kidney injury: (4) A-fib: (5) Diabetes: (6) H/O pancreatic cancer: (7) Depression with anxiety: (8) Stroke: (9) Metabolic encephalopathy: (10) Increased ammonia level: (11) Hypernatremia: (12) Hypokalemia: Hospital Course Hospital Course: see "discharge summary" from same date Additional Data Confirmation of : no pulse, no respirations, no heart sounds and pupils fixed and dilated Family: at bedside Attending/PCP notified?: Yes Attending physician: Davis Mann Was code activated?: No Autopsy requested?: No customs examiner notified?: No Coding Level of Care Code None Diagnoses Gram-negative bacteremia R78.81 Sepsis A41.9 Acute kidney injury N17.9 A-fib I48.2 Atrial fibrillation type: chronic Diabetes E11.9; Z79.4 Diabetes mellitus complication status: without complication Diabetes mellitus terminal system operator insulin use: with terminal system operator use Diabetes mellitus type: type 2 H/O pancreatic cancer Z85.07 Depression with anxiety F41.8 Stroke I63.9 Metabolic encephalopathy G93.41 Increased ammonia level R79.89 Hypernatremia E87.0 Hypokalemia E87.6
[2019-09-29] MEDS ORDERED: CHECK SCOPOLAMINE PATCH PLACEMENT SCH (16:00)
== END 2019-09-29 15:29 | disposition expired | DRG 853 ==
LOC: ED 09:28 → OR 12:07 → 2S 13:36 → SUATTDRO 13:36 → 1E 09-23 14:24 → 2W 09-28 15:21